=== PATIENT | female | born 1980 | race Caucasian/White ===

== ENCOUNTER 2018-02-03 23:35 | Emergency (ER) | payer MEDICAID, SELFPAY ==
[2018-02-03 23:39] VITALS: BP 128/96; PULSE 98; RESP 14; TEMP 36.5; O2SAT 100
[2018-02-03 23:58] LABS: Bilirubin Negative (Negative); Blood Moderate (Negative); Clarity Clear; Glucose Negative (Negative); Ketones Negative (Negative); Leukocyte Esterase Negative (Negative); Nitrite Negative (Negative); Specific Gravity 1.015 (1.005-1.025); Urobilinogen 0.2 EU/dL (Up TO 0.2)
--- NOTE | 2018-02-04 00:01 | ED.GENADUL_ITS ---
Disposition Clinical Impression: Flank pain, Urolithiasis Disposition: HOME Condition: Good Instructions: Kidney Stones (ED), Flank Pain (ED) Additional Instructions: Please take medications as directed. If you notice any worsening of your symptoms, or any new symptoms such as vomiting, diarrhea, fever, chills, shortness of breath, chest pain, numbness, weakness, or fainting , please return immediately to the emergency department for reevaluation. Please follow up with your primary care provider as soon as possible for reassessment and reevaluation. As always, it was a pleasure participating in your medical care today. Prescriptions: Acetaminophen [Tylenol Extra Strength] 1,000 mg PO Q6H 5 Days #60 tab Ibuprofen [Motrin Ib] 600 mg PO Q6H 5 Days #60 tablet Medical Decision Making - Medical Decision Making This is a pleasant 37-year-old female who presents for evaluation of flank pain that started tonight. She describes it as aching sensation. It is reproducible on percussion, and palpation of the paraspinal areas. She does have some associated urinary pressure sensation. Abdominal exam is benign for any signs of an acute abdomen or a significant abdominal tenderness. The patient has no history of kidney stones. Differential at this time includes urolithiasis versus UTI. We will get a urinalysis to evaluate further imaging is indicated. Signs and symptoms are more clinically concerning for UTI then kidney stone at this time though. Urinalysis is suggestive of a kidney stone, no signs of significant infection. The patient's pain is controlled with Tylenol and Motrin. Initial CT read was negative for any acute process, however we did contact the radiologist and discussed the case with them and reviewed the images, and there is concern for mild right hydroureter, as well as possible kidney stone. I feel this correlates well with the patient's symptomatology. Her vital signs are normal, pain is well controlled, no signs of infection on urinalysis. Feel the patient be safely discharged home with close follow-up. We will get a new primary care provider for her. We discussed red flags which returned the patient understands. I have extensively reviewed the treatment plan and discharge instructions with the patient and their family. I have addressed all patient concerns at this time. The patient and family was made aware of what symptoms to monitor for that would warrant a return to the emergency department. Discussed the plan with the patient and family, they demonstrate verbal understanding and agreement with our assessment and plan at this time. History of Present Illness - General Chief complaint: FlankPain Stated complaint: UNKNOWN Time Seen by Provider: 02/03/18 23:48 - History of Present Illness Initial comments: This is a 37-year-old female with no significant past medical history who presents today for evaluation of bilateral flank pain, slightly worse on the right than the left. Patient's pain started very mildly yesterday, however did get worse tonight. Is been achy in sensation. She has some associated urinary pressure, but denies any frequency, or dysuria. She denies any fevers chills, nausea, vomiting, diarrhea. Patient symptoms are made worse with moving around. She states that she did just recently get back from a long car trip to [place], and the patient was concerned that this may just be musculoskeletal secondary to sitting for so long. Patient denies any abdominal pain with food, recent trauma, rash, headache, numbness tingling or weakness. Patient denies any history of kidney stones, or any recent bladder infections. She has no other complaints at this time. Past surgical history is positive for hysterectomy. Patient does smoke tobacco regularly. - Related Data Acetaminophen [Tylenol Extra Strength] 1,000 mg PO Q6H 5 Days #60 tab 02/04/18 Ibuprofen [Motrin Ib] 600 mg PO Q6H 5 Days #60 tablet 02/04/18 Allergies Allergy/AdvReac Type Severity Reaction Status Date / Time No Known Allergies Allergy Unverified 07/27/17 18:28 Review of Systems Other: 10 point review of systems was performed, pertinent positives and negatives are noted in the history of present illness. Past Medical History - Past Medical History Medical history: asthma endometriosis Surgical history: hysterectomy - Social History Alcohol use: none Drug use: none General Exam - Other Other exam information: 1.Const: Well-nourished, Well-developed, appearing stated age 2.Eyes: PERRL, no conjunctival injection, and symmetrical lids. 3.ENT: Atraumatic external nose and ears. Moist MM. Neck: Symmetric, trachea midline, No thyromegaly. 4.CVS: +S1/S2, No murmurs or gallops. Peripheral pulses 2+ and equal in all extremities. Brisk capillary refill in all extremities. 5.RESP: Unlabored respiratory effort. Clear to auscultation bilaterally. No wheezes rales or rhonchi 6.GI: Soft, Nontender/Nondistended, No hepatosplenomegaly. No guarding or rebound. Mild bilateral flank tenderness on percussion. Slightly worse on the left than the right. Mild reproducible paraspinal tenderness. No midline spinal tenderness. Negative obturator and psoas sign. No pain at McBurney's point. Negative Beltran sign. 7.MSK: Normocephalic/Atraumatic, Extremities w/o deformity or ttp No cyanosis or clubbing, Normal movement of all extremities 8.Skin: Warm, Dry. No rashes or lesions. 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 Sensation grossly intact, no focal neurologic deficits. 10.Psych: (AAO) x3. Appropriate mood and affect Course Vital Signs - 24 hr 02/03/18 23:39 Temperature 36.5 C Pulse 98 H Respiratory 14 Rate Blood Pressure 128/96 Pulse Oximetry 100
[2018-02-04] MEDS: Ibuprofen 800 MG TAB PO (00:11)
[2018-02-04] MEDS: Acetaminophen 500 MG TAB 1000 MG PO (00:12)
[2018-02-04 00:23] LABS: Bacteria Rare HPF (Negative); Casts Negative LPF (Negative); Crystals Negative HPF (Negative); Epithelial Cells Many HPF (Negative); Mucus Negative (Negative); Other Cells Rare Transitional (Negative); RBC 20-50 (0-2); WBC 0-2 HPF (0-5)
[2018-02-04 00:24] LABS: C & S Indicated? No
--- NOTE | 2018-02-04 00:30 | DI.RPTCT_ITS ---
SYMPTOMS/DIAGNOSIS: BILATERAL FLANK PAIN, WORSE ON RIGHT NONCONTRAST CT OF THE ABDOMEN AND PELVIS: There are no prior comparison exams. There is mild bilateral dilatation of both renal pelves. There are phleboliths in the lower pelvis. No definite ureteral calculi are seen. There are no bladder calculi or intrarenal calculi. The lung bases are clear. There is a question of mild fatty infiltration of the liver. There is no biliary dilatation. The gallbladder, pancreas, spleen and adrenals are unremarkable. The patient is status post hysterectomy. There is a lucency in the area of the cervical stump. The findings could represent a nabothian cyst. The cecum and appendix are positioned low in the posterior pelvis. No inflammatory changes or bowel dilatation is seen. There is a mild scoliosis. The bladder is unremarkable. IMPRESSION: Mild dilatation of both renal pelves, right greater than left, without visible obstructing stones. The findings could be secondary to recently passed stones versus anatomic variant.
--- NOTE | 2018-02-04 01:12 | DI.VRAD_ITS ---
EXAM: CT Abdomen and Pelvis Without Intravenous Contrast EXAM DATE/TIME: 02/04/2018 12:09 AM CLINICAL HISTORY: 37 years old, female; Pain; Other: Bilat flank pain; Prior surgery; Surgery date: 6+ months; Surgery type: Hysterectomy TECHNIQUE: Axial computed tomography images of the abdomen and pelvis without intravenous contrast. All CT scans at this facility use at least one of these dose optimization techniques: automated exposure control; mA and/or kV adjustment per patient size (includes targeted exams where dose is matched to clinical indication); or iterative reconstruction. Coronal and sagittal reformatted images were created and reviewed. COMPARISON: US - PELVIS TRANSVAG 2015-03-09 16:18 FINDINGS: Lower thorax: No acute findings. ABDOMEN: Liver: Normal. No mass. Gallbladder and bile ducts: The gallbladder is poorly visualized on subsequent to marked contraction. Pancreas: Normal. No ductal dilation. Spleen: Normal. No splenomegaly. Adrenals: Normal. No mass. Kidneys and ureters: Normal. No hydronephrosis. Stomach and bowel: Normal. No obstruction. No mucosal thickening. Appendix: No evidence of appendicitis. PELVIS: Bladder: Unremarkable as visualized. Reproductive: The uterus is not visualized which is consistent with a given history of hysterectomy. Neither ovary was identified. There is a possible 1.1 x 1.7 cm nabothian cyst on the left lateral cervical stump. ABDOMEN and PELVIS: Intraperitoneal space: Normal. No free air. No significant fluid collection. Bones/joints: The coronal reconstructed images demonstrate mild dextroscoliotic curvature with the apex at L2. Soft tissues: Unremarkable. Vasculature: Normal. No abdominal aortic aneurysm. Lymph nodes: Normal. No enlarged lymph nodes. IMPRESSION: No acute findings are detected. Dictated and Authenticated by: Tommie Hannah MD. Ordering:HEATHER MERLOS MD
[2018-02-04 01:30] VITALS: BP 124/82; PULSE 94; RESP 18; TEMP 36.6; O2SAT 96
--- NOTE | 2018-02-04 10:40 | PDOC.ERCMPRO ---
Care Management Progress Note 02/04-Dr. Graham requested assistance with a PCP f/u in 102 weeks for flank pain. Milagros used to see Radha Mckinnon at [facility]. Referral faxed to [facility] this am.
== END 2018-02-04 01:32 | disposition home or self-care (01) ==
PROVIDERS: Emergency Provider Student in an Organized Health Care Education/Training Program; PCP Nurse Practitioner
DX: R10.31 Right lower quadrant pain (principal); N20.9 Urinary calculus, unspecified
CPT/HCPCS: 99284; 74176; 81003; 81015

== ENCOUNTER → 2018-02-17 15:21 | Outpatient (REF) | payer MEDICAID, SELFPAY ==
[2018-02-17 21:44] LABS: RBC Negative (0-2); WBC 0-2 HPF (0-5)
[2018-02-17 21:45] LABS: Bacteria Few HPF (Negative); C & S Indicated? No; Casts Negative LPF (Negative); Crystals Few Amorphous HPF (Negative); Epithelial Cells Few HPF (Negative); Mucus Negative (Negative)
[2018-02-17 21:58] LABS: Anion Gap 9.1 mmol/L (3-11); BUN 12 mg/dL (7-18); CO2 25.9 mmol/L (21.0-32.0); CREATININE 1.11 mg/dL (0.55-1.02); Calcium 9.2 mg/dL (8.5-10.1); Chloride 108 mmol/L (98-107); Cholesterol 151 mg/dL (50-200); Estimated GFR 55.94 (mL/min/1.73m2); Glucose 84 mg/dL (70-100); HDL Cholesterol 55 mg/dL (40-60); LDL CHOLESTEROL 86 mg/dL (<100); Potassium 4.1 mmol/L (3.5-5.1); Sodium 143 mmol/L (136-145); TSH (W/Ref FT4) 1.48 uIU/mL (0.358-3.74); Triglyceride 182 mg/dL (30-150)
[2018-02-20 11:46] LABS: Source: Kidney
== END ==
LOC: NCHCN 15:21
PROVIDERS: PCP Specialist/Technologist Athletic Trainer; Visit Provider Specialist/Technologist Athletic Trainer
DX: N20.0 Calculus of kidney (principal); R53.83 Other fatigue
CPT/HCPCS: 80048; 80061; 83721; 81015; 82360; 84443

== ENCOUNTER 2018-06-25 09:42 | Emergency (ER) | payer MEDICAID, SELFPAY ==
[2018-06-25 09:44] VITALS: BP 147/86; PULSE 80; RESP 18; TEMP 36.4; O2SAT 98
--- NOTE | 2018-06-25 09:51 | ED.GENADUL_ITS ---
Discharge Plan Disposition Patient Disposition: HOME Condition: Improving Discharge Details Chief Complaint: Orthopedic Clinical Impression: Left ankle sprain Primary Care Provider: Anthony Hannah ED Provider: Ortega Colin Home Meds and New Rx's Prescriptions: Continued acetaminophen [Mapap Extra Strength] 500 MG tablet 1,000 mg PO Q6H 5 Days Qty: 60 RF: 0 Ibuprofen [Motrin Ib] 200 MG Tablet 600 mg PO Q6H 5 Days Qty: 60 RF: 0 Discharge Instructions Instructions: Ankle Sprain (ED) Additional Instructions: Tylenol and/or ibuprofen as needed for pain. Elevate above the level of the heart to reduce pain and swelling. Crutches as needed and then may wean to the postop shoe, subsequently weaned to a flat soled shoe and then return to normal footwear. Return for any acute concerns Medical Decision Making 38-year-old female who is in outpatient surgical waiting, stood up with her foot having pins and needles and subsequently rolled the left ankle. Now with dull, achy, left foot pain and mild swelling. Given ice and referred for x-ray to rule out underlying fracture versus sprain. The patient's x-ray did not reveal underlying fracture. Given postop shoe, compression, crutches. She will be weightbearing as tolerated, rest, ice, elevation at home. Return for any worsening HPI General Mode of arrival: ambulatory . Date/Time Provider Initiated Documentation: 06/25/18 09:44 . Limitations to Documentation: no limitations . Information obtained by: patient . History of Present Illness 38 year old F presents to the emergency department with the chief complaint of Left ankle pain, described as moderate, Quality is described as aching, and is loca lized to the left and lower extremity. Patient reports no radiation. Patient started experiencing this minute(s) and it has been constant. No relieving factors improve symptom(s), Movement worsens symptoms . Patient notes other (My foot fell asleep). Patient did receive the following treatments prior to arrival, none Related Data Home Medications Medication Instructions Recorded Confirmed Ibuprofen [Motrin Ib] 600 mg PO Q6H 5 Days #60 tablet 02/04/18 acetaminophen [Mapap Extra 1,000 mg PO Q6H 5 Days #60 tab 02/04/18 Strength] Previous Rx's Medication Instructions Recorded Ibuprofen [Motrin Ib] 600 mg PO Q6H 5 Days #60 tablet 02/04/18 acetaminophen [Mapap Extra 1,000 mg PO Q6H 5 Days #60 tab 02/04/18 Strength] Allergies Allergy/AdvReac Type Severity Reaction Status Date / Time No Known Allergies Allergy Unverified 07/27/17 18:28 General Stated Complaint: Orthopedic DIANNA: 4 Review of Systems Review of Systems For systems reviewed and otherwise negative [facility] Surgical History Curettage of endometrium (03/17/15) Social History Smoking/Tobacco Use Status: Current every day Exam Narrative Exam Narrative: GEN: awake, alert, oriented 3. Pleasant, well groomed, interactive. HEAD: Normocephalic, atraumatic ENT: Mucous membranes moist, oropharynx unremarkable, External ear exam unremarkable EYES: PERRL, EOMI NECK: Full ROM, no DEYANIRA, no menigismus CHEST/RESP: Nontender, clear to auscultation bilateral, no wheeze/rhonchi/rales CARDIOVASCULAR: RRR, no murmur, rub rod. 2+ Rad pulse bilateral EXT: Full ROM, no edema, no rash. Left lateral proximal dorsal surface of foot with area of ecchymosis and tenderness. 2+ DP. Range of motion intact. Sensation intact throughout. Neuro: Grossly normal neurologic exam, conversant, interactive. Psych: Speech fluent, thoughts congruent, affect normal Course Vital Signs Temperature 36.4 C L 06/25/18 09:44 Pulse 80 06/25/18 09:44 Respiratory Rate 18 06/25/18 09:44 Blood Pressure 147/86 H 06/25/18 09:44 Pulse Oximetry 98 06/25/18 09:44 Temperature 36.4 C L 06/25/18 09:44 Temperature Source Temporal Artery Scan 06/25/18 09:44 Pulse 80 06/25/18 09:44 Respiratory Rate 18 06/25/18 09:44 Respiratory Effort Non-Labored 06/25/18 09:47 Blood Pressure 147/86 H 06/25/18 09:44 Pulse Oximetry 98 06/25/18 09:44 Oxygen Delivery Method Room Air 06/25/18 09:44 Oxygen Flow Rate 0 06/25/18 09:44 Pain Level 2 06/25/18 09:44
--- NOTE | 2018-06-25 10:04 | DI.RAD_ITS ---
SYMPTOM/DIAGNOSIS: LATERAL FOOT PAIN AFTER TWISTING LEFT ANKLE: No fracture or ankle mortise widening is seen. There is some narrowing of the ankle joint. IMPRESSION: No acute abnormality.
[2018-06-25] MEDS: Acetaminophen 500 MG TAB 1000 MG PO (10:37)
[2018-06-25] MEDS: Ibuprofen 800 MG TAB PO (10:37)
== END 2018-06-25 10:40 | disposition home or self-care (01) ==
PROVIDERS: Emergency Provider Emergency Medicine; PCP Specialist/Technologist Athletic Trainer
DX: S93.402A Sprain of unspecified ligament of left ankle, initial encounter (principal); X50.9XXA Other and unspecified overexertion or strenuous movements or postures, initial encounter
CPT/HCPCS: 99283; 73610; E0114

== ENCOUNTER 2018-07-16 10:29 | Outpatient (CLI) | payer MEDICAID, SELFPAY ==
--- NOTE | 2018-07-16 15:30 | DI.RAD_ITS ---
SYMPTOMS/DIAGNOSIS: COUGH, R05 PA AND LATERAL CHEST: The heart is normal in size. The lungs are clear. The mediastinal structures and pleura appear intact. SUMMARY: Normal chest.
== END 2018-07-16 10:49 ==
PROVIDERS: PCP Specialist/Technologist Athletic Trainer; Visit Provider Specialist/Technologist Athletic Trainer
DX: R05 Cough (principal)
CPT/HCPCS: 71046

== ENCOUNTER 2018-08-14 12:35 | Emergency (ER) | payer MEDICAID, SELFPAY ==
[2018-08-14 12:44] VITALS: BP 137/98; PULSE 72; RESP 16; TEMP 36.7; O2SAT 99
--- NOTE | 2018-08-14 12:56 | DI.RAD_ITS ---
SYMPTOMS/DIAGNOSIS: COUGH X 2 MOS CHEST X-RAY, PA AND LATERAL: Comparison is 07/16/18. The heart is normal in size. The lungs are clear. The mediastinal structures and pleura appear intact. IMPRESSION: Normal chest.
--- NOTE | 2018-08-14 12:59 | ED.GENADUL_ITS ---
Discharge Plan Disposition Patient Disposition: HOME Condition: Good Discharge Details Chief Complaint: GenMedical Clinical Impression: Fatigue, Sinusitis Primary Care Provider: Anthony Hannah ED Provider: Brian Graham Home Meds and New Rx's Prescriptions: New fluticasone [Flonase Allergy Relief] 50 mcg/actuation spray,suspension 2 spray SIOMARA DAILY Qty: 9.9 RF: 0 loratadine 10 mg capsule 10 mg PO DAILY Qty: 20 RF: 0 No Action acetaminophen [Mapap Extra Strength] 500 MG tablet 1,000 mg PO Q6H 5 Days Qty: 60 RF: 0 Ibuprofen [Motrin Ib] 200 MG Tablet 600 mg PO Q6H 5 Days Qty: 60 RF: 0 Discharge Instructions Instructions: Sinusitis (ED), Fatigue (ED) Additional Instructions: Please take the medications as directed. If you notice any worsening of your symptoms, or any new symptoms such as vomiting, diarrhea, fever, chills, shortness of breath, chest pain, numbness, weakness, or fainting , please return immediately to the emergency department for reevaluation. Please follow up with your primary care provider as soon as possible for reassessment and reevaluation. As always, it was a pleasure participating in your medical care today. Referrals: Anthony Hannah [Primary Care Provider] - Medical Decision Making This is a pleasant 38-year-old female who presents for evaluation of mild cough and sinus congestion for the last 2 months. She is completed a course of azithromycin and Augmentin last month, with no improvement of her symptoms. She denies any fever, chills, chest pain or significant shortness of breath. She denies any vomiting or diarrhea. She does smoke regularly and does not stop this. Physical exam demonstrates reassuring vital signs, and a benign physical exam with minimal crackles in left lower lung jolly. No evidence of hypoxemia. Patient is requesting further imaging workup, will get a chest x-ray to rule out pneumonia, will follow laboratory workup looking for mono, as well as influenza and thyroid dysfunction secondary to the patient's chronicity of her symptoms, in conjunction with a notable fatigue. The patient is PERC and Wells negative, and her signs and symptoms are clinically is consistent with coronary embolism, or ACS 2:31 pm Patient's chest x-ray has returned, and there is no evidence of acute process or pneumonia per radiology. Laboratory workup has returned and shows no abnormalities whatsoever. TSH, mono, and flu are all benign. No white count bandemia or left shift. Feel the patient signs and symptoms are consistent with sinusitis. We will prescribe loratadine and nasal steroids for improvement drainage of this. I see no evidence of bacterial infectious etiology for her symptoms or complaints at this time requiring an antibiotic. I have extensively reviewed the treatment plan and discharge instructions with the patient. I have addressed all patient concerns at this time. The patient was made aware of what symptoms to monitor for that would warrant a return to the emergency department. Discussed the plan with the patient, they demonstrate verbal understanding and agreement with our assessment and plan at this time. HPI General Date/Time Provider Initiated Documentation: 08/14/18 12:36 . HPI Narrative: This is a 38-year-old female with a past medical history of total hysterectomy, notable tobacco abuse, who presents for feeling ill for the last 2 months. Patient states that she has had a cough and facial congestion for the last 2 months, she has been on azithromycin and then subsequent Augmentin and steroid burst by her PCP. She has an appointment in 3 days with her PCP, however she was concerned that she was not getting better over the last 2 months and came in for further evaluation. She is also worried that her son was epilepsy might get whatever she has and she wants to see what is going on.She denies any chest pain, significant shortness of breath, pleuritic chest pain, nausea, vomiting, diarrhea, neck pain, headache, fever, chills, change in medications, numbness, tingling, or weakness. Denies PE risk factors such as recent long car rides, immobilization, recent surgery, prior history of DVT or PE, family history of PE or DVT, morbid obesity, exogenous estrogen, hemoptysis, history of cancer. Related Data Home Medications Medication Instructions Recorded Confirmed Ibuprofen [Motrin Ib] 600 mg PO Q6H 5 Days #60 tablet 02/04/18 08/14/18 acetaminophen [Mapap Extra 1,000 mg PO Q6H 5 Days #60 tab 02/04/18 08/14/18 Strength] fluticasone [Flonase Allergy 2 spray SIOMARA DAILY #9.9 gm 08/14/18 Relief] loratadine 10 mg PO DAILY #20 cap 08/14/18 Previous Rx's Medication Instructions Recorded Ibuprofen [Motrin Ib] 600 mg PO Q6H 5 Days #60 tablet 02/04/18 acetaminophen [Mapap Extra 1,000 mg PO Q6H 5 Days #60 tab 02/04/18 Strength] fluticasone [Flonase Allergy 2 spray SIOMARA DAILY #9.9 gm 08/14/18 Relief] loratadine 10 mg PO DAILY #20 cap 08/14/18 Allergies Allergy/AdvReac Type Severity Reaction Status Date / Time No Known Allergies Allergy Unverified 08/14/18 12:49 General Stated Complaint: GenMedical DIANNA: 3 Review of Systems Review of Systems All systems reviewed & are unremarkable except as noted in HPI and below PFSH Social History Smoking and Tabacco status: Current every day Exam Narrative Exam Narrative: 1.Const: Well-nourished, Well-developed, appearing stated age 2.Eyes: PERRL, no conjunctival injection, and symmetrical lids. 3.ENT: Atraumatic external nose and ears. Moist MM. Neck: Symmetric, trachea midline, No thyromegaly. 4.CVS: +S1/S2, No murmurs or gallops. Peripheral pulses 2+ and equal in all e xtremities. Brisk capillary refill in all extremities. 5.RESP: Unlabored respiratory effort. Minimal crackles in the left lower lung field. No wheezes or rhonchi 6.GI: Soft, Nontender/Nondistended, No hepatosplenomegaly. No guarding or rebound. 7.MSK: Normocephalic/Atraumatic, Extremities w/o deformity or ttp No cyanosis or clubbing, Normal movement of all extremities 8.Skin: Warm, Dry. No rashes or lesions. 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 Sensation grossly intact, no focal neurologic deficits. 10.Psych: (AAO) x3. Appropriate mood and affect Course Vital Signs Temperature 36.7 C 08/14/18 12:44 Pulse 72 08/14/18 12:44 Respiratory Rate 16 08/14/18 12:44 Blood Pressure 137/98 H 08/14/18 12:44 Pulse Oximetry 99 08/14/18 12:44 Temperature 36.7 C 08/14/18 12:44 Temperature Source Temporal Artery Scan 08/14/18 12:44 Pulse 72 08/14/18 12:44 Respiratory Rate 16 08/14/18 12:44 Respiratory Effort Incrsd Work of Breathing 08/14/18 12:47 Blood Pressure 137/98 H 08/14/18 12:44 Blood Pressure Position Sitting 08/14/18 12:44 Pulse Oximetry 99 08/14/18 12:44 Oxygen Delivery Method Room Air 08/14/18 12:44 Oxygen Flow Rate 0 08/14/18 12:44 Pain Level 0 08/14/18 12:44
[2018-08-14 13:25] LABS: Abs Immature Grans 0.02 k/cumm (0.0-0.09); Absolute Basophil Count 0.04 k/cumm (0.0-0.2); Absolute Eosinophil Count 0.32 k/cumm (0.0-0.7); Absolute Lymphocyte Count 3.16 k/cumm (1.2-3.4); Absolute Monocyte Count 0.71 k/cumm (0.11-0.7); Absolute Neutrophil Count 4.14 k/cumm (1.2-6.7); Basophils % 0.5; Eosinophils % 3.8; HCT 43.4 % (36.0-46.0); HGB 14.8 g/dL (12.0-15.5); Immature Grans % 0.2; Lymphocytes % 37.7; Mean Corp. HGB Concentration 34.1 g/dL (32.0-36.0); Mean Corpuscular Hemoglobin 31.8 pg (27.0-33.0); Mean Corpuscular Volume 93.3 fL (80-95); Mean Platelet Volume 10.3 fL (8.0-11.0); Monocytes % 8.5; Neutrophils % 49.3; Platelet Count 287 x1000/uL (130-400); RBC 4.65 m/cumm (4.00-5.20); White Blood Cell Count 8.39 k/cumm (4.4-10.8)
[2018-08-14 13:30] VITALS: RESP 1
[2018-08-14] MEDS: Albuterol/Ipratropium 3 ML UPD VIAL UPD (13:30)
[2018-08-14 13:34] LABS: Mono Screening Negative (Negative)
[2018-08-14 14:05] LABS: ALT 54 U/L (12-78); AST 30 U/L (15-37); Albumin 3.5 g/dL (3.4-5.0); Alkaline Phosphatase 91 U/L (46-116); Anion Gap 9.5 mmol/L (3-11); BUN 11 mg/dL (7-18); Bilirubin, Total 0.2 mg/dL (0.2-1.0); CO2 28.5 mmol/L (21.0-32.0); CREATININE 0.97 mg/dL (0.55-1.02); Calcium 9.3 mg/dL (8.5-10.1); Chloride 107 mmol/L (98-107); Glucose 80 mg/dL (70-100); Potassium 3.6 mmol/L (3.5-5.1); Sodium 145 mmol/L (136-145); Total Protein 7.2 g/dL (6.4-8.2)
[2018-08-14 14:09] LABS: TSH 1.91 uIU/mL (0.358-3.74)
[2018-08-14 14:37] VITALS: BP 130/82; PULSE 80; RESP 16; TEMP 36.8; O2SAT 98
== END 2018-08-14 14:38 | disposition home or self-care (01) ==
PROVIDERS: Emergency Provider Student in an Organized Health Care Education/Training Program; PCP Specialist/Technologist Athletic Trainer
DX: R53.83 Other fatigue (principal); J01.90 Acute sinusitis, unspecified
CPT/HCPCS: 36415; 80053; 87449; 94640; 99284; 71046; 84443; 85025; 86308; J7620

== ENCOUNTER 2018-09-18 08:21 | Emergency (ER) | payer MEDICAID, SELFPAY ==
[2018-09-18 08:27] VITALS: BP 124/77; PULSE 77; RESP 18; TEMP 36.4; O2SAT 100
--- NOTE | 2018-09-18 08:59 | DI.RAD_ITS ---
SYMPTOMS/DIAGNOSIS: FALL, PAIN, TENDER TO PALPATION MID TO DISTAL HUMERUS, LT KNEE LATERAL AND AC LEFT CLAVICLE: There is no evidence of a fracture or AC separation. LEFT HUMERUS: There is no evidence of a fracture or dislocation. LEFT KNEE: There is no evidence of a fracture or dislocation.
--- NOTE | 2018-09-18 09:02 | W.ED.GENAD ---
Discharge Plan Disposition Patient Disposition: HOME Discharge Details Chief Complaint: Orthopedic Clinical Impression: Fall, Injury of left upper arm, Acromioclavicular sprain, Contusion of knee, left Primary Care Provider: Anthony Hannah ED Provider: Phillip Gallardo Home Meds and New Rx's Prescriptions: No Action acetaminophen [Mapap Extra Strength] 500 MG tablet 1,000 mg PO Q6H 5 Days Qty: 60 RF: 0 Ibuprofen [Motrin Ib] 200 MG Tablet 600 mg PO Q6H 5 Days Qty: 60 RF: 0 paroxetine HCl [Paxil] 40 mg Tablet 40 mg PO DAILY RF: 0 Discharge Instructions Instructions: Acromioclavicular Separation (ED), Contusion in Adults (ED) Additional Instructions: Please take ibuprofen over the counter - dose according to label. Please take Tylenol [id number] dose according to label. Please contact your primary care physician to arrange follow-up. Return to the ER for any worsening or new concerning symptoms. Referrals: Donnell Falcon MD [ [facility] STAFF PHYSICIAN] - Anthony Hannah [Primary Care Provider] - Discharge Data Discharge Date/Time-TO BE ENTERED AT DEPARTURE: 09/18/18 11:28 Medical Decision Making 9:10 --38-year-old female here after slip and fall with injury to her left upper arm and left knee. Neurovascular intact distal left upper extremity left lower extremity. Exam concerning for AC separation and likely sprain/strain of her upper arm bicep complex. Consider clavicle fracture and humerus fracture. Knee tender laterally. Suspect sprain. Consider fracture. Patient notes that her knee locks up intermittently. This is a chronic problem. She plans to seek orthopedic evaluation. She knows Dr. Jha and would prefer to see him. 11:15 --left x-ray of clavicle, left humerus and left knee interpreted by radiology as negative. Suspect AC sprain and contusion of left knee. Usual and customary discharge instructions were provided. HPI General Mode of arrival: ambulatory. Date/Time Provider Initiated Documentation: 09/18/18 08:34. Limitations to Documentation: no limitations. Information obtained by: patient. HPI Narrative: 38yo female presents with chief complaint of left arm pain. Patient notes that her left knee locked up and gave out and she fell to the ground. She landed on her left side. She injured her left arm during the fall. This occurred about 30 minutes prior to arrival and she has had persistent pain in her arm since the fall. Pain is localized to her upper arm and clavicle. Pain is moderate and worse with movement of her arm. She has no associated numbness or tingling. She did not hit her head or lose consciousness. No neck pain. No back pain. No chest pain or abdominal pain. She does note that her left knee is sore and painful to walk on. She impacted her lateral knee joint a fall but it seems like her arm took most of the impact. Related Data Home Medications Medication Instructions Recorded Confirmed Ibuprofen [Motrin Ib] 600 mg PO Q6H 5 Days #60 tablet 02/04/18 09/18/18 acetaminophen [Mapap Extra 1,000 mg PO Q6H 5 Days #60 tab 02/04/18 09/18/18 Strength] paroxetine HCl [Paxil] 40 mg PO DAILY 09/18/18 09/18/18 Previous Rx's Medication Instructions Recorded Ibuprofen [Motrin Ib] 600 mg PO Q6H 5 Days #60 tablet 02/04/18 acetaminophen [Mapap Extra 1,000 mg PO Q6H 5 Days #60 tab 02/04/18 Strength] Allergies Allergy/AdvReac Type Severity Reaction Status Date / Time adhesive Allergy Skin Rash Unverified 09/18/18 08:37 bupropion AdvReac skin Unverified 09/18/18 08:37 crawling General Stated Complaint: Orthopedic DIANNA: 4 Review of Systems Cardiovascular Denies dyspnea Respiratory Denies dyspnea Gastrointestinal Denies abdominal pain Musculoskeletal Reports as per HPI Neurologic Reports as per HPI [facility] Surgical History Curettage of endometrium (03/17/15) Social History Smoking/Tobacco Use Status: Current every day Tobacco Type: cigarettes Drug use: Occasionally Substance use type: marijuana Do you feel safe at home: Yes Do you feel safe in your relationship?: Yes Exam Const General: cooperative and no acute distress HENMT Head: normocephalic and atraumatic Mouth: moist mucous membranes Neck Neck: trachea midline, supple and nontender Resp Auscultation: clear to auscultation bilaterally, no rales, no rhonchi and no wheezes Cardio Rate: regular rate and not tachycardic Rhythm: regular rhythm Pulses: radial pulses present on the left 2+ GI Palpation: soft, not firm, no guarding, no masses, not rigid and nontender Back/Spine/Pelvis Back: No back tenderness Cervical Spine: cervical ROM normal Thoracic/Lumbar Spine: thoracic and lumbar spine normal to inspection Skin General skin exam: no rashes or lesions noted Neuro General: alert, awake and tone normal Cognition: normal cognition Speech: speech normal Motor: other (distal LUE and LLE motor intact) Sensory Exam: no sensory deficits noted (distal LUE and LLE) Extrem Left upper extremity: shoulder/upper arm (ttp AC joint and left mid to distal upper arm medially) Details: axillary nerve sensory function normal and abnormal ROM (able to range shoulder but with pain in AC) and elbow/forearm Details: abnormal ROM (patient notes limited flexion and extension of elbow 2/2 pain in upper arm); no tenderness and no swelling Psych Appearance: grossly normal Course Vital Signs Temperature 36.4 C L 09/18/18 08:27 Pulse 77 09/18/18 08:27 Respiratory Rate 18 09/18/18 08:27 Blood Pressure 124/77 09/18/18 08:27 Pulse Oximetry 100 09/18/18 08:27 Temperature 36.4 C L 09/18/18 08:27 Temperature Source Temporal Artery Scan 09/18/18 08:27 Pulse 77 09/18/18 08:27 Respiratory Rate 18 09/18/18 08:27 Respiratory Effort Non-Labored 09/18/18 08:34 Blood Pressure 124/77 09/18/18 08:27 Blood Pressure Position Sitting 09/18/18 08:27 Pulse Oximetry 100 09/18/18 08:27 Oxygen Delivery Method Room Air 09/18/18 08:27 Oxygen Flow Rate 0 09/18/18 08:27 Pain Level 7 09/18/18 08:39
--- NOTE | 2018-09-18 09:11 | ED.GENADUL_ITS ---
Discharge Plan Disposition Patient Disposition: HOME Discharge Details Chief Complaint: Orthopedic Clinical Impression: Fall, Injury of left upper arm, Acromioclavicular sprain, Contusion of knee, left Primary Care Provider: Anthony Hannah ED Provider: Phillip Gallardo Home Meds and New Rx's Prescriptions: No Action acetaminophen [Mapap Extra Strength] 500 MG tablet 1,000 mg PO Q6H 5 Days Qty: 60 RF: 0 Ibuprofen [Motrin Ib] 200 MG Tablet 600 mg PO Q6H 5 Days Qty: 60 RF: 0 paroxetine HCl [Paxil] 40 mg Tablet 40 mg PO DAILY RF: 0 Discharge Instructions Instructions: Acromioclavicular Separation (ED), Contusion in Adults (ED) Additional Instructions: Please take ibuprofen over the counter - dose according to label. Please take Tylenol [id number] dose according to label. Please contact your primary care physician to arrange follow-up. Return to the ER for any worsening or new concerning symptoms. Referrals: Donnell Falcon MD [ [facility] STAFF PHYSICIAN] - Anthony Hannah [Primary Care Provider] - Discharge Data Discharge Date/Time-TO BE ENTERED AT DEPARTURE: 09/18/18 11:28 Medical Decision Making 9:10 --38-year-old female here after slip and fall with injury to her left upper arm and left knee. Neurovascular intact distal left upper extremity left lower extremity. Exam concerning for AC separation and likely sprain/strain of her upper arm bicep complex. Consider clavicle fracture and humerus fracture. Knee tender laterally. Suspect sprain. Consider fracture. Patient notes that her knee locks up intermittently. This is a chronic problem. She plans to seek orthopedic evaluation. She knows Dr. Jha and would prefer to see him. 11:15 --left x-ray of clavicle, left humerus and left knee interpreted by radiology as negative. Suspect AC sprain and contusion of left knee. Usual and customary discharge instructions were provided. HPI General Mode of arrival: ambulatory . Date/Time Provider Initiated Documentation: 09/18/18 08:34 . Limitations to Documentation: no limitations . Information obtained by: patient . HPI Narrative: 38yo female presents with chief complaint of left arm pain. Patient notes that her left knee locked up and gave out and she fell to the ground. She landed on her left side. She injured her left arm during the fall. This occurred about 30 minutes prior to arrival and she has had persistent pain in her arm since the fall. Pain is localized to her upper arm and clavicle. Pain is moderate and worse with movement of her arm. She has no associated numbness or tingling. She did not hit her head or lose consciousness. No neck pain. No back pain. No chest pain or abdominal pain. She does note that her left knee is sore and painful to walk on. She impacted her lateral knee joint a fall but it seems like her arm took most of the impact. Related Data Home Medications Medication Instructions Recorded Confirmed Ibuprofen [Motrin Ib] 600 mg PO Q6H 5 Days #60 tablet 02/04/18 09/18/18 acetaminophen [Mapap Extra 1,000 mg PO Q6H 5 Days #60 tab 02/04/18 09/18/18 Strength] paroxetine HCl [Paxil] 40 mg PO DAILY 09/18/18 09/18/18 Previous Rx's Medication Instructions Recorded Ibuprofen [Motrin Ib] 600 mg PO Q6H 5 Days #60 tablet 02/04/18 acetaminophen [Mapap Extra 1,000 mg PO Q6H 5 Days #60 tab 02/04/18 Strength] Allergies Allergy/AdvReac Type Severity Reaction Status Date / Time adhesive Allergy Skin Rash Unverified 09/18/18 08:37 bupropion AdvReac skin Unverified 09/18/18 08:37 crawling General Stated Complaint: Orthopedic DIANNA: 4 Review of Systems Cardiovascular Denies dyspnea Respiratory Denies dyspnea Gastrointestinal Denies abdominal pain Musculoskeletal Reports as per HPI Neurologic Reports as per HPI [facility] Surgical History Curettage of endometrium (03/17/15) Social History Smoking/Tobacco Use Status: Current every day Tobacco Type: cigarettes Drug use: Occasionally Substance use type: marijuana Do you feel safe at home: Yes Do you feel safe in your relationship?: Yes Exam Const General: cooperative and no acute distress HENMT Head: normocephalic and atraumatic Mouth: moist mucous membranes Neck Neck: trachea midline, supple and nontender Resp Auscultation: clear to auscultation bilaterally, no rales, no rhonchi and no wheezes Cardio Rate: regular rate and not tachycardic Rhythm: regular rhythm Pulses: radial pulses present on the left 2+ GI Palpation: soft, not firm, no guarding, no masses, not rigid and nontender Back/Spine/Pelvis Back: No back tenderness Cervical Spine: cervical ROM normal Thoracic/Lumbar Spine: thoracic and lumbar spine normal to inspection Skin General skin exam: no rashes or lesions noted Neuro General: alert, awake and tone normal Cognition: normal cognition Speech: speech normal Motor: other (distal LUE and LLE motor intact) Sensory Exam: no sensory deficits noted (distal LUE and LLE) Extrem Left upper extremity: shoulder/upper arm (ttp AC joint and left mid to distal upper arm medially) Details: axillary nerve sensory function normal and abnormal ROM (able to range shoulder but with pain in AC) and elbow/forearm Details: abnormal ROM (patient notes limited flexion and extension of elbow 2/2 pain in upper arm); no tenderness and no swelling Psych Appearance: grossly normal Course Vital Signs Temperature 36.4 C L 09/18/18 08:27 Pulse 77 09/18/18 08:27 Respiratory Rate 18 09/18/18 08:27 Blood Pressure 124/77 09/18/18 08:27 Pulse Oximetry 100 09/18/18 08:27 Temperature 36.4 C L 09/18/18 08:27 Temperature Source Temporal Artery Scan 09/18/18 08:27 Pulse 77 09/18/18 08:27 Respiratory Rate 18 09/18/18 08:27 Respiratory Effort Non-Labored 09/18/18 08:34 Blood Pressure 124/77 09/18/18 08:27 Blood Pressure Position Sitting 09/18/18 08:27 Pulse Oximetry 100 09/18/18 08:27 Oxygen Delivery Method Room Air 09/18/18 08:27 Oxygen Flow Rate 0 09/18/18 08:27 Pain Level 7 09/18/18 08:39
[2018-09-18] MEDS: Acetaminophen 325 MG TAB 650 MG PO (11:23)
== END 2018-09-18 11:28 | disposition home or self-care (01) ==
PROVIDERS: Emergency Provider Student in an Organized Health Care Education/Training Program; PCP Specialist/Technologist Athletic Trainer
DX: S43.52XA Sprain of left acromioclavicular joint, initial encounter (principal); S80.02XA Contusion of left knee, initial encounter; M79.602 Pain in left arm; W01.0XXA Fall on same level from slipping, tripping and stumbling without subsequent striking against object, initial encounter
CPT/HCPCS: 73562; 99284; 73000; 73060; L3650

== ENCOUNTER 2018-10-03 00:47 | Outpatient (CLI) | payer MEDICAID, SELFPAY ==
--- NOTE | 2018-10-03 10:44 | DI.MRI_ITS ---
SYMPTOM/DIAGNOSIS: LT KNEE PAIN, S/P FALL, ? PATELLOFEMORAL SYNDROME LEFT KNEE MRI: MRI examination of the knee was performed according to the usual protocol. Note is made of areas of increased signal in the distal left femur laterally and anteriorly. There is corresponding area of abnormal signal in the medial aspect of the patella and there is abnormal signal at the medial patellar retinacular attachment. The findings are suggestive of prior patellar dislocation. The possibility of medial patellar fracture inferiorly is raised. No other significant bony signal abnormality is seen. Extensor mechanism otherwise appears intact. No meniscal or cruciate ligament injury is seen. No significant collateral ligament injury is seen. CONCLUSION: Findings suggesting lateral patellar dislocation and medial retinacular injury with question impaction fracture inferomedial patella.
== END 2018-10-03 01:07 ==
PROVIDERS: PCP Specialist/Technologist Athletic Trainer; Visit Provider Orthopaedic Surgery
DX: M25.562 Pain in left knee (principal); S83.092A Other subluxation of left patella, initial encounter
CPT/HCPCS: 73721

== ENCOUNTER 2019-06-29 13:08 | Outpatient (REF) | payer MEDICAID, SELFPAY ==
[2019-06-29 21:58] LABS: Anion Gap 15.8 mmol/L (3-11); BUN 7 mg/dL (7-18); CO2 21.2 mmol/L (21.0-32.0); CREATININE 1.01 mg/dL (0.55-1.02); Calcium 9.2 mg/dL (8.5-10.1); Chloride 106 mmol/L (98-107); Glucose 93 mg/dL (74-106); Potassium 3.6 mmol/L (3.5-5.1); Sodium 143 mmol/L (136-145)
== END 2019-06-29 13:28 ==
LOC: NCHCN 13:08
PROVIDERS: PCP Specialist/Technologist Athletic Trainer; Visit Provider Nurse Practitioner Family
DX: R60.9 Edema, unspecified (principal); F32.9 Major depressive disorder, single episode, unspecified
CPT/HCPCS: 80048

== ENCOUNTER 2019-07-02 02:22 | Outpatient (CLI) | payer MEDICAID, SELFPAY ==
--- NOTE | 2019-07-02 12:15 | DI.RAD_ITS ---
EXAM: XR SCAPULA LT AND XR SHOULDER LT: CLINICAL HISTORY: SOFT TISSUE SWELLING, R60.9, LT SHOULDER PAIN, M25.512 TECHNIQUE: Five views of the shoulder and two additional views of the scapula were obtained. COMPARISON: XR SHOULDER LT COMPLETE 2+V from 07/02/2019 FINDINGS: The glenohumeral and acromioclavicular joints appear intact. No bony abnormality seen. Note is made o f a faint calcific or ossific density projected in the soft tissues lateral to the inferior tip of th e scapula, this is of uncertain significance. Please correlate with the patient's symptomatology. If there is a clinical suspicion of a mass, additional evaluation with MR or CT of this region should be considered.
== END 2019-07-02 02:42 ==
PROVIDERS: PCP Nurse Practitioner Family; Visit Provider Nurse Practitioner Family
DX: M25.512 Pain in left shoulder (principal); M79.89 Other specified soft tissue disorders; R22.32 Localized swelling, mass and lump, left upper limb
CPT/HCPCS: 73010; 73030

== ENCOUNTER 2019-07-18 22:07 | Emergency (ER) | payer MEDICAID, SELFPAY ==
[2019-07-18 22:13] VITALS: BP 138/97; PULSE 80; RESP 16; TEMP 36.6; O2SAT 98
--- NOTE | 2019-07-18 22:27 | ED.GENADUL_ITS ---
Discharge Plan Disposition Patient Disposition: HOME Condition: Stable Discharge Details Chief Complaint: Headache Clinical Impression: Headache Primary Care Provider: Carol Randle ED Provider: Don Paez Home Meds and New Rx's Prescriptions: New diazepam [Valium] 5 mg tablet 5 mg PO TID PRN (Reason: muscle spasm) Qty: 14 RF: 0 Continued paroxetine HCl [Paxil] 20 mg tablet 20 mg PO DAILY RF: 0 cholecalciferol (vitamin D3) 1,000 unit/drop drops 1,000 unit PO .daily RF: 0 tramadol 50 mg Tablet 50 mg PO HS RF: 0 acetaminophen [Mapap Extra Strength] 500 MG tablet 1,000 mg PO Q6H 5 Days Qty: 60 RF: 0 Ibuprofen [Motrin Ib] 200 MG tablet 600 mg PO Q6H 5 Days Qty: 60 RF: 0 Discharge Instructions Instructions: General Headache (ED) Additional Instructions: follow up with your primary care provider within 1-2 weeks. if you have severe worsening pain, fevers or feel more ill return to the emergency department do not drink alcohol or drive if you take the valium Medical Decision Making 39 yo female with hx of migraines and states has a mass of left shoulder that causes stress of the muscles around it and the neck for quite some time comes in with headaches that feels similar to prior headaches. She denies fevers, vomit, falls, trauma, vision changes. She has a steady gait, no meningismus, no focal motor or sensation deficits and no cranial nerve deficits. She likely is haveing tension headache vs migraine vs muscle strain/spasm. No findings on history or physical exam to suggest bufferer infection, cavernous sinus thrombosis or cerebral venous thrombosis. She has not had imaging recently and given her symptoms will image to eval for possible aneurysm vs mass imaging and labs unremarkable, still reasuing exaqm and pain has improved. Will d/c on muscle relaxers, advised f/u with pcp and return precautions given Differential Diagnosis Differential Diagnosis: migraine, muscle spasm, aneurysm Medical Records Medical records reviewed: Yes I reviewed the patient's medical records. Imaging Data Radiologic Study: Attestation: I personally reviewed and interpreted this imaging study as follows: Imaging: CT Scan Radiologist's impression: no acute findings Lab Data Lab results reviewed: Yes I reviewed the patient's lab results. HPI General Mode of arrival: ambulatory . Date/Time Provider Initiated Documentation: 07/18/19 22:08 . Limitations to Documentation: no limitations . Information obtained by: patient . History of Present Illness 39 year old F presents to the emergency department with the chief complaint of headache, described as moderate, Quality is described as aching, Patient reports no radiation. Patient started experiencing this day(s) (1) and it has been constant. No relieving factors improve symptom(s), No exacerbating factors reported . Patient did receive the following treatments prior to arrival, none Related Data Home Medications Medication Instructions Recorded Confirmed Ibuprofen [Motrin Ib] 600 mg PO Q6H 5 Days #60 tab 02/04/18 07/18/19 acetaminophen [Mapap Extra 1,000 mg PO Q6H 5 Days #60 tab 02/04/18 07/18/19 Strength] cholecalciferol (vitamin D3) 1,000 1,000 unit PO .daily ml 07/01/19 07/18/19 unit/drop oral drops paroxetine HCl 20 mg tablet 20 mg PO DAILY 07/01/19 07/18/19 diazepam [Valium] 5 mg PO TID PRN #14 tab 07/18/19 tramadol 50 mg PO HS 07/18/19 07/18/19 Previous Rx's Medication Instructions Recorded Ibuprofen [Motrin Ib] 600 mg PO Q6H 5 Days #60 tab 02/04/18 acetaminophen [Mapap Extra 1,000 mg PO Q6H 5 Days #60 tab 02/04/18 Strength] diazepam [Valium] 5 mg PO TID PRN #14 tab 07/18/19 Allergies Allergy/AdvReac Type Severity Reaction Status Date / Time adhesive Allergy Skin Rash Unverified 07/18/19 22:17 bupropion AdvReac skin Unverified 07/18/19 22:17 crawling General Stated Complaint: Headache DIANNA: 3 Review of Systems All systems reviewed & are unremarkable except as noted in HPI and below Constitutional Constitutional: Denies chills, Denies fever(s) and Denies weakness Cardiovascular Cardiovascular: Denies chest pain and Denies dyspnea Respiratory Respiratory: Denies cough and Denies dyspnea Gastrointestinal Gastrointestinal: Denies abdominal pain, Denies nausea and Denies vomiting Musculoskeletal Musculoskeletal: Denies joint swelling Neurologic Neurologic: Denies weakness Psychiatric Psychiatric: Denies depression [facility] Social History Smoking/Tobacco Use Status: Current every day Tobacco Type: cigarettes Drug use: Occasionally Substance use type: marijuana Do you feel safe at home: Yes Do you feel safe in your relationship?: Yes Exam Const General: no acute distress Orientation: alert HENMT Head: normal to inspection Ears: external ears normal General nose exam: external nose normal Mouth: moist mucous membranes Eyes General: appearance normal, both eyes and all related structures Neck Neck: normal visual inspection Resp Effort & Inspection: normal respiratory effort and able to speak in complete sentences Cardio Rate: regular rate Skin General skin exam: no rashes or lesions noted Neuro General: alert and oriented x3 Extrem General: normal to inspection Psych Mental Status: mental status grossly normal Course Vital Signs Vital signs: Vital Signs Temperature 36.6 C 07/18/19 22:13 Pulse 80 07/18/19 22:13 Respiratory Rate 16 07/18/19 22:13 Blood Pressure 138/97 H 07/18/19 22:13 Pulse Oximetry 98 07/18/19 22:13 Temperature 36.6 C 07/18/19 22:13 Temperature Source Temporal Artery Scan 07/18/19 22:13 Pulse 80 07/18/19 22:13 Respiratory Rate 16 07/18/19 22:13 Blood Pressure 138/97 H 07/18/19 22:13 Blood Pressure Position Supine 07/18/19 22:13 Pulse Oximetry 98 07/18/19 22:13 Oxygen Delivery Method Room Air 07/18/19 22:13 Oxygen Flow Rate 0 07/18/19 22:13
[2019-07-18] MEDS: diazePAM 5 MG TAB PO (22:28)
[2019-07-18] MEDS: Dexamethasone 10 MG/ML VIAL IVP (22:37)
--- NOTE | 2019-07-18 22:45 | DI.CT_ITS ---
EXAM: CT BRAIN CTA CLINICAL HISTORY: headaches TECHNIQUE: Pre IV contrast and post IV contrast during the arterial phase. Axial CT angiography was performed with multi-slice acquisition and multi-planar and/or 3D reconstruc tions. COMPARISON: ABD PELVIS WO CONTRAST from 02/04/2018 FINDINGS: Noncontrast head CT: No intracranial hemorrhage, mass or infarct is seen. There is no evidence of s kull fracture or sinus opacification. CT angiography of the brain: There is no evidence of vascular occlusion, dissection or gross evidenc e of an aneurysm. No AV malformation or other abnormal enhancing lesion is seen. The venous structu res are unremarkable as visualized. IMPRESSION: Negative head CT. Negative CT angiography of the brain.
[2019-07-18 22:48] LABS: Abs Immature Grans 0.01 k/cumm (0.0-0.09); Absolute Basophil Count 0.07 k/cumm (0.0-0.2); Absolute Eosinophil Count 0.36 k/cumm (0.0-0.7); Absolute Lymphocyte Count 5.03 k/cumm (1.2-3.4); Absolute Monocyte Count 0.66 k/cumm (0.11-0.7); Basophils % 0.8; HCT 42.4 % (36.0-46.0); HGB 14.4 g/dL (12.0-15.5); Immature Grans % 0.1 %; Lymphocytes % 56.3; Mean Corpuscular Hemoglobin 31.4 pg (27.0-33.0); Mean Corpuscular Volume 92.4 fL (80-95); Mean Platelet Volume 10.2 fL (8.0-11.0); Monocytes % 7.4; Neutrophils % 31.4; Platelet Count 297 x1000/uL (130-400); RBC 4.59 m/cumm (4.00-5.20); White Blood Cell Count 8.93 k/cumm (4.4-10.8)
[2019-07-18 23:00] LABS: ALT 27 U/L (14-59); AST 15 U/L (15-37); Albumin 3.5 g/dL (3.4-5.0); Alkaline Phosphatase 82 U/L (46-116); BUN 13 mg/dL (7-18); Bilirubin, Total 0.2 mg/dL (0.2-1.0); CREATININE 0.88 mg/dL (0.55-1.02); Calcium 8.6 mg/dL (8.5-10.1); Chloride 107 mmol/L (98-107); Glucose 95 mg/dL (74-106); Magnesium 1.9 mg/dL (1.8-2.4); Potassium 3.4 mmol/L (3.5-5.1); Sodium 142 mmol/L (136-145); Total Protein 6.8 g/dL (6.4-8.2)
[2019-07-18] MEDS: Omnipaque 350 MG/ML 100 ML BTL IJ (23:10)
--- NOTE | 2019-07-18 23:18 | DI.VRAD_ITS ---
PROCEDURE INFORMATION: Exam: CT Angiography Head With Contrast Exam date and time: 07/18/2019 10:20 PM Age: 39 years old Clinical indication: Pain; Patient HX: Headaches TECHNIQUE: Imaging protocol: Computed tomography angiography of the head with intravenous contrast. 3D rendering: MIP and/or 3D reconstructed images were created by the technologist. COMPARISON: No relevant prior studies available. FINDINGS: Right internal carotid artery: The visualized distal right ICA cervical segment is unremarkable. The right ICA petrous segment is unremarkable. Right ICA cavernous segment is unremarkable. The right ICA supraclinoid segment is unremarkable. Right anterior cerebral artery: Mildly hypoplastic right A1 segment. No occlusion or significant stenosis. No aneurysm. The anterior communicating artery is unremarkable. Right middle cerebral artery: Unremarkable. No occlusion or significant stenosis. No aneurysm. Right posterior cerebral artery: Unremarkable. No occlusion or significant stenosis. No aneurysm. Right vertebral artery: Unremarkable. No occlusion or significant stenosis. No aneurysm. Left internal carotid artery: The visualized distal left ICA cervical segment is unremarkable. The left ICA petrous segment is unremarkable. Left ICA cavernous segment is unremarkable. The left ICA supraclinoid segment is unremarkable. Left anterior cerebral artery: Unremarkable. No occlusion or significant stenosis. No aneurysm. Left middle cerebral artery: Unremarkable. No occlusion or significant stenosis. No aneurysm. Left posterior cerebral artery: Unremarkable. No occlusion or significant stenosis. No aneurysm. Left vertebral artery: Unremarkable. No occlusion or significant stenosis. No aneurysm. Basilar artery: Unremarkable. No occlusion or significant stenosis. No aneurysm. Dural sinuses/cerebral veins: The dural venous sinuses and major cortical veins enhance appropriately without evidence of thrombosis. Other vasculature: The visualized major intracranial arterial segments demonstrate no gross abnormality by noncontrast CT. No asymmetric vascular hyperdensities suggestive of thrombosis are identified. HEAD: Brain: No extra-axial fluid collections. No evidence of acute intracranial hemorrhage. Tadeo-white differentiation is well maintained. No evidence of acute or subacute intracranial ischemia/infarct. No intracranial mass lesions. No enhancing brain lesions or vascular malformations are identified. Midline shift: No midline shift or herniation. Ventricles: Ventricles normal. Sella: The sella is grossly normal. Bones/joints: The calvarium and visualized facial bones are intact. Sinuses: Visualized paranasal sinuses are clear. Mastoid air cells: Visualized mastoid air cells are clear. Orbits: Orbital contents demonstrate no evidence of acute abnormality. Soft tissues: The scalp and visualized soft tissues demonstrate no acute abnormality. Other findings: The IACs are grossly normal. IMPRESSION: 1. No evidence of large vessel occlusion. No evidence of arterial dissection or aneurysm/pseudoaneurysm. 2. No acute intracranial process is identified. 3. Normal CT angiogram of the head. Dictated and Authenticated by: David Ortiz MD. Ordering:LATASHA Ochoa MD
[2019-07-18 23:29] LABS: Diff Comment Agrees w/ Instrument; PTT Activated 27.4 sec (21.0-31.4); Prothrombin Time 10.1 sec (9.3-11.0); RBC Morphology Normal
[2019-07-18 23:36] VITALS: BP 119/82; PULSE 61; RESP 20; TEMP 36.8; O2SAT 96
== END 2019-07-18 23:45 | disposition home or self-care (01) ==
PROVIDERS: Emergency Provider Emergency Medicine; PCP Nurse Practitioner Family
DX: R51 Headache (principal); R22.32 Localized swelling, mass and lump, left upper limb
CPT/HCPCS: 70496; 80053; 96374; 99285; 83735; 85025; 85610; 85730; 99284; J1100; J3490

== ENCOUNTER 2019-07-23 01:25 | Outpatient (CLI) | payer MEDICAID, SELFPAY ==
[2019-07-23] MEDS: Omnipaque 350 MG/ML 100 ML BTL IJ (14:18)
[2019-07-23] MEDS: Normal Saline - Diluent 50 ML VIAL IV (14:19)
--- NOTE | 2019-07-23 14:25 | DI.CT_ITS ---
EXAM: CT UPPER EXTREMITY LT W CLINICAL HISTORY: SOFT TISSUE SWELLING, R60.9, ? MASS LEFT SHOULDER AREA TECHNIQUE: CT examination of the left shoulder was performed with intravenous infusion of 100 cc of Omnipaque 350. Patient reportedly has a palpable mass of the posterolateral aspect of the shoulder. T his is marked with a BB marker. COMPARISON: No exams were available for comparison FINDINGS: There is contour abnormality and prominence of subcutaneous fat beneath the BB marker suggesting the presence of a lipoma. No enhancing lesion identified. No underlying bony abnormality. No axillary or supraclavicular adenopathy. Visualized left lung and mediastinal vascular structures appear intac t. IMPRESSION: Findings suggesting lipoma of the left shoulder posterolaterally. No solid mass lesion or enhancing l esion seen.
== END 2019-07-23 01:45 ==
PROVIDERS: PCP Nurse Practitioner Family; Visit Provider Nurse Practitioner Family
DX: R22.32 Localized swelling, mass and lump, left upper limb (principal); D17.22 Benign lipomatous neoplasm of skin and subcutaneous tissue of left arm
CPT/HCPCS: 73201; J3490

== ENCOUNTER 2019-07-29 02:03 | Outpatient (CLI) | payer MEDICAID, SELFPAY ==
--- NOTE | 2019-07-29 09:45 | DI.MRI_ITS ---
EXAM: MR UPPER JOINT LT WO CLINICAL HISTORY: Acute traumatic severe left shoulder pain. D17.1 BENIGN LIPOMATOUS, M75.52. TECHNIQUE: Multiplanar multisequence MRI was performed. COMPARISON: No exams were available for comparison FINDINGS: Tendons: Tendinosis of the supraspinatus and subscapularis tendons. The infraspinatus and teres eze r tendons are intact. Muscles: There is normal signal and size of the rotator cuff muscles. No significant fatty atrophy i s present. Biceps tendon: Normal signal and size. Normal location. Labrum: Unremarkable on this noncontrast examination. Soft tissues: There is a homogeneously fat signal mass posteriorly. It does exert a mass effect on t he adjacent deltoid, infraspinatus and deltoid muscles. It measures 6.1 TR x 4.6 AP by 6.7 cm. It i s most suggestive of a lipoma. There is no infiltration of the surrounding soft tissues or muscles. No solid component is identified. There is a small amount of fluid in the subacromial subdeltoid bu rsa suggesting bursitis. Coracoclavicular ligament: Unremarkable. Bones: Mild degenerative changes are seen at the acromioclavicular joint and in the humeral head. Glenohumeral joint: The articular cartilage is unremarkable. No significant joint effusion is presen t. IMPRESSION: 6.1 x 4.6 x 6.7 cm fat density mass along the posterior shoulder most suggestive of a lipoma. Small amount of fluid in the subacromial subdeltoid bursa suggesting bursitis.
== END 2019-07-29 02:23 ==
PROVIDERS: PCP Nurse Practitioner Family; Visit Provider Student in an Organized Health Care Education/Training Program
DX: M25.512 Pain in left shoulder (principal); M75.82 Other shoulder lesions, left shoulder; M75.52 Bursitis of left shoulder; M19.012 Primary osteoarthritis, left shoulder; D17.22 Benign lipomatous neoplasm of skin and subcutaneous tissue of left arm
CPT/HCPCS: 73221

== ENCOUNTER 2019-08-19 07:11 | Day surgery (SDC) | payer MEDICAID, SELFPAY ==
[2019-08-19 07:20] VITALS: BP 135/97; PULSE 85; RESP 16; TEMP 36.2; O2SAT 97
[2019-08-19] MEDS: Lactated Ringers 1,000 ML 80 ML IV (07:50)
--- NOTE | 2019-08-19 09:16 | PDOC.DSDIS_ITS ---
Discharge Plan Disposition Patient Disposition: HOME Condition: Good Discharge Details Reason For Visit: lipoma Attending Provider: Annika Gunderson Primary Care Provider: Carol Randle Home Meds and New Rx's Prescriptions: New acetaminophen [Tylenol] 325 mg tablet 650 mg PO Q6H PRN (Reason: pain) Qty: 30 RF: 0 Continued cyclobenzaprine 10 mg tablet 10 mg PO TID RF: 0 naproxen 500 mg tablet 500 mg PO BID RF: 0 paroxetine HCl [Paxil] 20 mg tablet 20 mg PO HS RF: 0 cholecalciferol (vitamin D3) 1,000 unit/drop drops 1,000 unit PO HS RF: 0 tramadol 50 mg Tablet 50 mg PO HS RF: 0 nicotine (polacrilex) 4 mg Lozenge 4 mg MUCOUS MEMBRANE Q5H PRNRF: 0 acetaminophen [Mapap Extra Strength] 500 MG tablet 1,000 mg PO Q6H 5 Days Qty: 60 RF: 0 Discharge Instructions Instructions: Lipoma (GEN) Additional Instructions: Activity at Home after surgery: 1. Make sure you walk outside at least 4 times per day 2. You should be able to climb a flight of stairs 3. No driving while in pain or taking pain medications 4. No strenuous activity or heavy lifting for 2 weeks Diet, Nutrition, & wound healin. Avoid alcohol until after you are recovered from your surgery 2. Make sure to eat plenty of lean protein (meat, fish, eggs, cottage cheese, beans) 3. Eat a variety of fruits and vegetables. Eat plenty of high fiber foods to avoid constipation. 4. Drink plenty of liquids to stay hydrated and avoid constipation Pain Medications: 1. Tylenol 650 mg 2. If a narcotic has been prescribed take as directed only for breakthrough pain For Constipation: 1. Take Milk of Magnesia or MiraLax as needed for constipation Other: 1. You may shower daily. Do not scrub the incisions 2. Do not soak the incisions for 1 week 3. You may alternate ice and heat as needed for pain and swelling Wound Care: 1. Keep the incisions clean and dry Please call our office if you develop: 1. Fevers >101.5 2. Nausea or Vomiting 3. Worsening pain 4. Redness and thick discharge from the wounds If after hours please call the Hospital at and ask to speak to the on-call surgeon Referrals: Annika Gunderson MD [ [facility] STAFF PHYSICIAN] - 09/04/19 9:30 am Activity:: no strenuous activity with left arm Diet:: As Tolerated DS: Diagnosis Discharge Diagnosis (1) Lipoma of extremity: Status: Acute
--- NOTE | 2019-08-19 09:23 | ROE_ITS ---
Date of service: 08/19/19 Time of Service: 10:38 Operative Note Operative Note DATE OF PROCEDURE: 08/19/19 PRE-OP DIAGNOSIS: Left posterior shoulder lipoma POST-OP DIAGNOSIS: same PROCEDURE: Excision of lipoma SURGEON: Annika Gunderson ANESTHESIA: MAC (Jesus Thornton, [employer]/ [facility]) PATHOLOGY: other (Lipoma) COMPLICATIONS: None Patient was transported to: same day Patient's condition: stable Indications: Mrs. Maher is a pleasant 39 year old female referred from Dr. Jones for consideration of excision of Left shoulder Lipoma. She states that she first noted the mass about 1 year ago after falling. It then seemed to disappear and then reappear in the recent past. She has been having left shoulder pain as well and was noted to have some tendonitis. MRI is consistent with benign lipoma. It does look like it is sitting on top of the muscle Findings: Multi-lobulated lipoma measuring 10 x 8 cm Procedure Description: After informed consent was obtained in SDS and the mass was marked, the patient was taken to the Operating room and placed in a right lateral position. her left arm was placed on a Corbett stand with pillows. Next monitors were applied and she was given sedation. Once sedated and comfortable a time out was done. The patients, name, date of , allergies to medications, antibiotic prophylaxis, DVT prophylaxis, procedure to be done and site were all reviewed. Fire risk was assessed. Next the patient's skin over the palpable mass was prepped and draped in a sterile surgical fashion. Local anesthetic consisting of Exparel mixed 50/50 with 0.25% bupivacaine was injected into the dermis and subcutaneous tissue. An 8 cm incision was then made over the palpable lipoma. Dissection was done with cautery through a small amount of subcutaneous tissue until the lipoma was identified. Using Littler scissors the lipoma was carefully dissected away from the dermis. The lipoma was noted to be multilobulated so care was taken to make sure that every lobule was removed. The lipoma was carefully dissected away from the deltoid muscle underneath. Small amounts of bleeding were noted and these were cauterized. Once the lipoma was removed in its completion it was marked with a single suture superior and a double suture anterior. It was then removed from the operating room table and measured at 10 x 8 cm. It was then placed into formalin and sent to pathology. At this point the cavity was inspected small amounts of bleeding were again identified and these were cauterized. Once the area was dry, the subcutaneous tissue was reapproximated with 3-0 Vicryl interrupted sutures. The dermis was re-approximated with vertical mattress sutures with 3-0 Prolene. The skin was cleaned and dried and Mastisol and Steri-Strips were applied. 4 x 4's were applied and secured with Medipore tape. The patient was woken up placed on the gurney and taken back to same-day surgery in stable condition. The patient tolerated the procedure well and there were no immediate complications. Needle counts were correct at the end of the case.
--- NOTE | 2019-08-19 09:27 | PDOC.DSDIS_ITS ---
Discharge Plan Disposition Patient Disposition: HOME Condition: Good Discharge Details Reason For Visit: lipoma Attending Provider: Annika Gunderson Primary Care Provider: Carol Randle Home Meds and New Rx's Prescriptions: New acetaminophen [Tylenol] 325 mg tablet 650 mg PO Q6H PRN (Reason: pain) Qty: 30 RF: 0 tramadol 50 mg tablet 50 mg PO Q6H PRN (Reason: pain) Qty: 14 RF: 0 Continued cyclobenzaprine 10 mg tablet 10 mg PO TID RF: 0 naproxen 500 mg tablet 500 mg PO BID RF: 0 paroxetine HCl [Paxil] 20 mg tablet 20 mg PO HS RF: 0 cholecalciferol (vitamin D3) 1,000 unit/drop drops 1,000 unit PO HS RF: 0 tramadol 50 mg Tablet 50 mg PO HS RF: 0 nicotine (polacrilex) 4 mg Lozenge 4 mg MUCOUS MEMBRANE Q5H PRNRF: 0 acetaminophen [Mapap Extra Strength] 500 MG tablet 1,000 mg PO Q6H 5 Days Qty: 60 RF: 0 Discharge Instructions Instructions: Lipoma (GEN) Additional Instructions: Activity at Home after surgery: 1. Make sure you walk outside at least 4 times per day 2. You should be able to climb a flight of stairs 3. No driving while in pain or taking pain medications 4. No strenuous activity or heavy lifting for 2 weeks Diet, Nutrition, & wound healin. Avoid alcohol until after you are recovered from your surgery 2. Make sure to eat plenty of lean protein (meat, fish, eggs, cottage cheese, beans) 3. Eat a variety of fruits and vegetables. Eat plenty of high fiber foods to avoid constipation. 4. Drink plenty of liquids to stay hydrated and avoid constipation Pain Medications: 1. Tylenol 650 mg 2. If a narcotic has been prescribed take as directed only for breakthrough pain For Constipation: 1. Take Milk of Magnesia or MiraLax as needed for constipation Other: 1. You may shower daily. Do not scrub the incisions 2. Do not soak the incisions for 1 week 3. You may alternate ice and heat as needed for pain and swelling Wound Care: 1. Keep the incisions clean and dry Please call our office if you develop: 1. Fevers >101.5 2. Nausea or Vomiting 3. Worsening pain 4. Redness and thick discharge from the wounds If after hours please call the Hospital at and ask to speak to the on-call surgeon Referrals: Annika Gunderson MD [ [facility] STAFF PHYSICIAN] - 09/04/19 9:30 am Activity:: no strenuous activity with left arm Diet:: As Tolerated Discharge Orders Discharge Orders: Discharge Order (Routine); Ordered 08/19/19 Ordered By: Annika Gunderson DS: Diagnosis Discharge Diagnosis (1) Lipoma of extremity: Status: Acute
[2019-08-19] MEDS: ceFAZolin 2 GM/50 ML BAG IVPB (09:58)
[2019-08-19] MEDS: Bupivacaine LIPOSOME/PF 133 MG/10 ML VIAL IJ (10:20)
[2019-08-19] MEDS: Bupivacaine 0.25% Pres-Free 10 ML VIAL (10:20)
--- NOTE | 2019-08-19 10:20 | SOFT_PTH ---
PATIENT: Milagros Maher LOC: [facility] U#:[id number] AGE/SX: 39/F ROOM: RE08/19/[address]: Annika Gunderson MD : 1980 BED: DIS: 08/19/2019 SPEC #: [id number] RECD: 08/19/19 12:31 STATUS: VIOLETA REQ #: [id number] KENISHA: 08/19/19 10:[address]: Annika Gunderson DEPT: Surgical Specimen RECD BY: Maria Dolores Constantino ENTERED: 08/19/19 12:34 SP TYPE: SOFT OTHR DR: Carol Randle Tissues: 1 - SOFT TISSUE MISC (INC. LIPOMA) Procedures: GROSS AND MICRO LEVEL 3 Comments: [id number]
[2019-08-19 11:10] VITALS: BP 132/92; PULSE 85; RESP 18; TEMP 36; O2SAT 98
== END 2019-08-19 11:40 | disposition home or self-care (01) ==
PROVIDERS: PCP Nurse Practitioner Family; Visit Provider Surgery
PROC: (CPT 11406; principal; 2019-08-19 09:00)
DX: D17.1 Benign lipomatous neoplasm of skin and subcutaneous tissue of trunk (principal)
CPT/HCPCS: 11406; 12034; 88304; J0690; J2001; J2250; J3010

== ENCOUNTER 2019-10-16 16:57 | Outpatient (REF) | payer MEDICAID, SELFPAY | END 2019-10-16 17:17 | LOC: NCHCN 16:57 | PROVIDERS: PCP Nurse Practitioner Family; Visit Provider Family Medicine | DX: J20.9 Acute bronchitis, unspecified (principal) | CPT/HCPCS: 87070 ==

== ENCOUNTER 2019-12-17 11:19 | Outpatient (REF) | payer MEDICAID, SELFPAY ==
[2019-12-17 19:37] LABS: Anion Gap 10.6 mmol/L (3-11); BUN 16 mg/dL (7-18); CO2 23.4 mmol/L (21.0-32.0); Chloride 105 mmol/L (98-107); Glucose 94 mg/dL (74-106); Potassium 4.4 mmol/L (3.5-5.1); Sodium 139 mmol/L (136-145)
[2019-12-17 19:48] LABS: Calcium 9.6 mg/dL (8.5-10.1)
== END 2019-12-17 11:39 ==
LOC: NCHCN 11:19
PROVIDERS: PCP Nurse Practitioner Family; Visit Provider Nurse Practitioner Family
DX: R03.0 Elevated blood-pressure reading, without diagnosis of hypertension (principal)
CPT/HCPCS: 80048

== ENCOUNTER 2020-01-01 09:23 | Outpatient (REF) | payer MEDICAID, SELFPAY ==
[2020-01-01 19:20] LABS: Calculated LDL 115 mg/dL (<100); Cholesterol 188 mg/dL (<200); Glucose 92 mg/dL (74-106); HDL Cholesterol 61 mg/dL (40-60); Triglyceride 64 mg/dL (<150)
== END 2020-01-01 09:43 ==
LOC: NCHCN 09:23
PROVIDERS: PCP Nurse Practitioner Family; Visit Provider Nurse Practitioner Family
DX: I10 Essential (primary) hypertension (principal)
CPT/HCPCS: 80061; 82947

== ENCOUNTER 2020-04-25 20:54 | Outpatient (REF) | payer MEDICAID, SELFPAY ==
[2020-05-04 17:55] LABS: SARS-CoV-2 RNA Undetected (Undetected)
== END 2020-04-25 21:14 ==
LOC: NCHCN 20:54
PROVIDERS: PCP Nurse Practitioner Family; Visit Provider Nurse Practitioner Family
DX: Z20.828 Contact with and (suspected) exposure to other viral communicable diseases (principal)
CPT/HCPCS: U0003

== ENCOUNTER 2020-07-25 18:35 | Outpatient (REF) | payer MEDICAID, SELFPAY ==
[2020-07-27 12:47] LABS: COVID-19 RT-PCR UVMMC Result Negative (Negative)
== END 2020-07-25 18:55 ==
LOC: NCHCN 18:35
PROVIDERS: PCP Nurse Practitioner Family; Visit Provider Nurse Practitioner Family
DX: J02.9 Acute pharyngitis, unspecified (principal)
CPT/HCPCS: U0003

== ENCOUNTER 2020-12-13 18:14 | Outpatient (REF) | payer MEDICAID, SELFPAY ==
[2020-12-15 13:54] LABS: COVID-19 RT-PCR UVMMC Result Negative (Negative)
== END 2020-12-13 18:15 | disposition home or self-care (01) ==
LOC: NCHCN 18:14
PROVIDERS: PCP Nurse Practitioner Family; Visit Provider Family Medicine
DX: Z20.822 Contact with and (suspected) exposure to COVID-19 (principal); J06.9 Acute upper respiratory infection, unspecified
CPT/HCPCS: U0003

== ENCOUNTER 2021-01-12 19:42 | Outpatient (REF) | payer MEDICAID, SELFPAY ==
[2021-01-12 19:13] LABS: Anion Gap 12.4 mmol/L (3-11); BUN 11 mg/dL (7-18); CO2 23.6 mmol/L (21.0-32.0); CREATININE 0.9 mg/dL (0.55-1.02); Calcium 9.6 mg/dL (8.5-10.1); Chloride 107 mmol/L (98-107); Glucose 75 mg/dL (74-106); Potassium 4.3 mmol/L (3.5-5.1); Sodium 143 mmol/L (136-145)
[2021-01-12 19:31] LABS: Vitamin D 25 Total 32.3 ng/mL (30-100)
== END 2021-01-12 19:43 | disposition home or self-care (01) ==
LOC: NCHCN 19:42
PROVIDERS: PCP Nurse Practitioner Family; Visit Provider Nurse Practitioner Family
DX: F41.9 Anxiety disorder, unspecified (principal); I10 Essential (primary) hypertension
CPT/HCPCS: 80048; 82306

== ENCOUNTER 2021-02-06 16:04 | Outpatient (REF) | payer MEDICAID, SELFPAY ==
[2021-02-08 18:26] LABS: COVID-19 RT-PCR Result Not Detected ((See Note))
== END 2021-02-06 16:05 | disposition home or self-care (01) ==
LOC: NCHCN 16:04
PROVIDERS: PCP Nurse Practitioner Family; Visit Provider Nurse Practitioner Family
DX: Z20.822 Contact with and (suspected) exposure to COVID-19 (principal); J06.9 Acute upper respiratory infection, unspecified
CPT/HCPCS: U0003

== ENCOUNTER 2021-02-21 01:26 | Outpatient (CLI) | payer MEDICAID, SELFPAY ==
--- NOTE | 2021-02-21 | DI.CT_ITS ---
Exam(s) CT SINUS WO EXAM: CT SINUS WO CLINICAL HISTORY: CHRONIC SINUSITIS,J32.9,JAW PAIN,R68.84,HEADACHE,R51.9. Evaluate for sinusitis. TECHNIQUE: Imaging Protocol: Axial computed tomography images with coronal and sagittal reformatted images were created and reviewed. COMPARISON: CT CT BRAIN CTA from 07/18/2019 FINDINGS: AXIAL IMAGES: Frontal sinuses: Normally aerated. Ethmoid air cells: Normally aerated. Maxillary sinuses: There is a mucous retention cyst or polyp in the left maxillary sinus. Sphenoid sinus: Normally aerated. Ostiomeatal complexes: There does appear to be partial obstruction of the left ostiomeatal complex se condary to the left maxillary cyst or polyp. Osseous nasal septum: Midline. Visualized regional soft tissues: No acute findings. Orbits: Unremarkable. Bones: Unremarkable. Mastoid Air Cells: Normally aerated. IMPRESSION: Mucous retention cyst or polyp in the left maxillary sinus which appears to cause partial obstruction of the left ostiomeatal complex. RADIATION DOSE DELIVERED: 123.11mGy.cm Total DLP DATA REPOSITORY: All CT scans at this facility are submitted to the National Radiology Data Registry (NRDR) Dose Index Registry (DIR) with the [employer] (ACR). RADIATION OPTIMIZATION: All CT scans at this facility use at least one of these dose optimization te chniques: automated exposure control; mA and/or kV adjustment per patient size (includes targeted exa ms where dose is matched to clinical indication); or iterative reconstruction.
== END 2021-02-21 01:46 ==
PROVIDERS: PCP Nurse Practitioner Family; Visit Provider Nurse Practitioner Family
DX: J32.9 Chronic sinusitis, unspecified (principal); R68.84 Jaw pain; R51.9 Headache, unspecified; J33.8 Other polyp of sinus
CPT/HCPCS: 70486

== ENCOUNTER 2021-03-07 10:48 | Outpatient (REF) | payer MEDICAID, SELFPAY ==
[2021-03-07 14:23] LABS: Anion Gap 13.6 mmol/L (3-11); BUN 11 mg/dL (7-18); CO2 22.4 mmol/L (21.0-32.0); CREATININE 0.9 mg/dL (0.55-1.02); Calcium 9.4 mg/dL (8.5-10.1); Chloride 107 mmol/L (98-107); Glucose 90 mg/dL (74-106); Potassium 4.5 mmol/L (3.5-5.1); Sodium 143 mmol/L (136-145)
[2021-03-08 14:18] LABS: COVID-19 RT-PCR UVMMC Result Negative (Negative)
== END 2021-03-07 10:49 | disposition home or self-care (01) ==
LOC: NCHCN 10:48
PROVIDERS: PCP Nurse Practitioner Family; Referring Provider Nurse Practitioner Family; Visit Provider Nurse Practitioner Family
DX: Z20.822 Contact with and (suspected) exposure to COVID-19 (principal); J32.9 Chronic sinusitis, unspecified; R51.9 Headache, unspecified; R68.84 Jaw pain; I10 Essential (primary) hypertension
CPT/HCPCS: 80048; U0003

== ENCOUNTER 2021-07-17 10:23 | Outpatient (REF) | payer MEDICAID, SELFPAY ==
[2021-07-18 10:48] LABS: COVID-19 RT-PCR UVMMC Result Negative (Negative)
== END 2021-07-17 10:24 | disposition home or self-care (01) ==
LOC: NCHCN 10:23
PROVIDERS: PCP Nurse Practitioner Family; Visit Provider Nurse Practitioner Family
DX: Z20.822 Contact with and (suspected) exposure to COVID-19 (principal); J34.89 Other specified disorders of nose and nasal sinuses
CPT/HCPCS: U0003

== ENCOUNTER 2021-09-11 04:02 | Outpatient (CLI) | payer MEDICAID, SELFPAY ==
--- NOTE | 2021-09-11 15:00 | NS.NUTBLAN_ITS ---
Assessment:? Ms. Maher presents for nutritional counseling for weight management.? She verbalizes being very frustrated by her weight gain as well as her difficulty losing weight.? She states that 15 years ago she was 113 lbs.? She is now 222 lbs. and her BMI is 35.4 kg.? Most recently she has gained 23 lbs since June of this year. has also recently started to quit smoking and is down to 5 cigarettes per day I believe from 2 packs per day.? She has also been requiring O2 at night and is scheduled to go for pulmonary function tests to assess for sleep apnea. Her dietary recall shows that she eats quite moderately: Morning:? Coffee with small amount of sweetened creamer. Mid-morning:? fruit or a fruited yogurt or a meal replacement bar. Midday:? She may have a salad with protein or left overs. Evening:? Moderate portions of protein and vegetables.? She has not been having starchy foods at dinner. If she does snack in the evening she has a small piece of dark chocolate. She only drinks water except her one coffee. She is very physically active.? [place] so there are chores every day.? At work she is on her feet the entire day and occasionally will use the elliptical machine that is available to her at work. Nutrition Diagnosis:? Class 2 obesity related to physiologic causes as evidenced by BMI of 35.4 kg/m2 Intervention:? Acknowledged Ms. Maher's frustrations with her difficulties with gaining excess weight as well as her struggle to lose weight.? With regard to her breakfast, I noted that it is high in simple sugars and sometimes low in protein.? She stated she would be willing to change up her breakfast so I suggested that she have a breakfast sandwich made with a low calorie whole grain Turkish muffin or bread or peanut butter on such bread.? Suggested plain citizen of [place] yogurt with berries as well.? I also suggested that she include 20-30 grams of protein at each meal and gave suggestions. We also reviewed carbohydrate counting as I suspect she has become insulin resistant over the years especially if she is not fully oxygenating overnight.? Provided written materials for CHO counting.? Encouraged her to keep under 45 grams of CHO per meal. With regard to physical activity, we discussed the importance of resistance training three days per week.? She states she has bands and can do some resistance exercises three days a week at work or while watching television at night.? Explained how building muscle increases metabolism as the muscle is the calorie burning part of the body. Ms. Maher verbalized an excellent understanding of all we discussed. Monitoring and Evaluation:? I will give Ms. Maher a call in two weeks.? I will evaluate her nutrition care plan at that time and offer suggestions for adjustments as needed. ? Thank you for the referral.
== END 2021-09-11 04:03 | disposition home or self-care (01) ==
PROVIDERS: PCP Nurse Practitioner Family; Visit Provider Dietitian, Registered
DX: E66.8 Other obesity (principal); Z68.35 Body mass index [BMI] 35.0-35.9, adult; Z71.3 Dietary counseling and surveillance
CPT/HCPCS: 97802

== ENCOUNTER 2021-09-18 03:55 | Outpatient (CLI) | payer MEDICAID, SELFPAY ==
[2021-09-18] MEDS: Albuterol HFA 18 GM 200 PUFF INH IH (15:01)
[2021-09-18] MEDS: Inhaler, Assist Device 1 EACH MC (15:01)
[2021-09-18] MEDS: Methacholine 100 MG VIAL IH (15:02)
== END 2021-09-18 03:56 | disposition home or self-care (01) ==
LOC: RT 03:55
PROVIDERS: PCP Nurse Practitioner Family; Visit Provider Nurse Practitioner Family
DX: Z87.09 Personal history of other diseases of the respiratory system (principal); F17.210 Nicotine dependence, cigarettes, uncomplicated; R09.02 Hypoxemia; R06.00 Dyspnea, unspecified; Z82.5 Family history of asthma and other chronic lower respiratory diseases; Z57.5 Occupational exposure to toxic agents in other industries; R94.2 Abnormal results of pulmonary function studies
CPT/HCPCS: 94060; 94070; 94726; 94729; 94010; J7674

== ENCOUNTER 2021-09-22 14:37 | Outpatient (REF) | payer MEDICAID, SELFPAY | END 2021-09-22 14:38 | disposition home or self-care (01) | LOC: NCHCN 14:37 | PROVIDERS: PCP Nurse Practitioner Family; Visit Provider Nurse Practitioner Family | DX: J34.89 Other specified disorders of nose and nasal sinuses (principal) | CPT/HCPCS: 87070 ==

== ENCOUNTER 2021-09-26 14:52 | Outpatient (CLI) | payer MEDICAID, SELFPAY ==
--- NOTE | 2021-09-26 | DI.CT_ITS ---
Exam(s) CT CHEST PE CTA EXAM: CT CHEST PE CTA CLINICAL HISTORY: DYSPNEA R06.00 TACHYCARDIA R00.0 SMOKER F17.200 OBESE E66.9. TECHNIQUE: Imaging Protocol: Axial CT angiography was performed with multi-slice acquisition and mu lti-planar and/or 3D reconstructions. CONTRAST MATERIAL: Intravenous: Omnipaque 350 Contrast volume:100 mL COMPARISON: CT ABD PELVIS WO CONTRAST from 02/04/[address] BRAIN CTA from 07/18/2019 FINDINGS: Tracheobronchial tree: Patent where visualized. Pulmonary parenchyma: Linear infiltrates are seen in the lung bases and the lingula. This may repres ent atelectasis, scarring or pneumonia. No architectural distortion. There is a 0.5 cm pulmonary nod ule in the right upper lobe. There is a 0.4 cm nodule associated with the right major fissure. Pulmonary Arteries: No evidence of filling defect to suggest pulmonary emboli. Mediastinum and Iris: No dominant adenopathy or fluid collection. The esophagus is unremarkable. Visualized thyroid gland: Unremarkable. Pleura: No effusion or pneumothorax. Heart: The heart is not dilated. No coronary artery calcifications are seen. No pericardial effusion. Aorta: Thoracic aorta non-dilated. No evidence of dissection. Upper abdomen: There is diffuse fatty infiltration of the liver. Soft tissues: Unremarkable. Bones: Within normal limits for the patient's age. IMPRESSION: 1. No evidence of pulmonary embolism, thoracic aortic dissection or aneurysm. 2. Two right pulmonary nodules as described above. For low risk patients, optional CT scan in 12 mon ths may be obtained. For high risk patients, (history of smoking or other risk factors), optional CT scan in 12 months may be obtained. (Crystal et al, 2017) RADIATION DOSE DELIVERED: 466.59mGy.cm Total DLP DATA REPOSITORY: All CT scans at this facility are submitted to the National Radiology Data Registry (NRDR) Dose Index Registry (DIR) with the [employer] (ACR). RADIATION OPTIMIZATION: All CT scans at this facility use at least one of these dose optimization te chniques: automated exposure control; mA and/or kV adjustment per patient size (includes targeted exa ms where dose is matched to clinical indication); or iterative reconstruction.
[2021-09-26] MEDS: Omnipaque 350 MG/ML 100 ML BTL IJ (13:08)
== END 2021-09-26 15:12 ==
PROVIDERS: PCP Nurse Practitioner Family; Visit Provider Nurse Practitioner Family
DX: R06.09 Other forms of dyspnea (principal); R00.0 Tachycardia, unspecified; F17.210 Nicotine dependence, cigarettes, uncomplicated; R91.8 Other nonspecific abnormal finding of lung field
CPT/HCPCS: 71275; J3490

== ENCOUNTER 2021-10-02 20:05 | Outpatient (REF) | payer MEDICAID, SELFPAY ==
[2021-10-02 20:49] LABS: HCT 44.7 % (36.0-46.0); HGB 14.5 g/dL (11.2-15.7); MCHC 32.4 % (32.0-36.0); MCV 95.5 fL (80-95); MPV 10.4 fL (8.0-11.0); Platelet Count 394 10^3/uL (130-400); RBC 4.68 10^6/uL (3.93-5.22); RDW 12.6 % (11.7-14.6); RDW-SD 44.2 fL; WBC 13.83 10^3/uL (4.4-10.8)
[2021-10-02 21:12] LABS: Iron 54 ug/dL (50-170); Total Iron Binding Capacity 360 ug/dL (250-450); Transferrin Sat 15 % (15-50)
[2021-10-02 21:19] LABS: Hemoglobin A1C 5.9 % (<5.7)
[2021-10-02 21:28] LABS: ALT 57 U/L (14-59); AST 26 U/L (15-37); Albumin 3.9 g/dL (3.4-5.0); Alkaline Phosphatase 93 U/L (46-116); Bilirubin, Total 0.3 mg/dL (0.2-1.0); Ferritin 62 ng/mL (8-252); TSH 1.33 uIU/mL (0.36-3.74); Total Protein 7.2 g/dL (6.4-8.2)
[2021-10-02 21:35] LABS: Vitamin D 25 Total 32.9 ng/mL (30-100)
[2021-10-02 22:03] LABS: Bilirubin, Direct 0.1 mg/dL (0.0-0.2)
[2021-10-04 09:52] LABS: HBs Antibody, Quant 46.8 mIU/mL (See Note); Hepatitis B Surface Ab Positive (See Note)
[2021-10-04 10:46] LABS: Hepatitis C Ab w Rflx HCV PCR Negative (Negative)
== END 2021-10-02 20:06 | disposition home or self-care (01) ==
LOC: NCHCN 20:05
PROVIDERS: PCP Nurse Practitioner Family; Visit Provider Nurse Practitioner Family
DX: K76.0 Fatty (change of) liver, not elsewhere classified (principal); J45.21 Mild intermittent asthma with (acute) exacerbation
CPT/HCPCS: 80076; 82306; 85027; 86706; 86803; 82728; 83036; 83540; 83550; 84443

== ENCOUNTER 2021-10-16 12:08 | Outpatient (REF) | payer MEDICAID, SELFPAY ==
[2021-10-16 15:29] LABS: HCT 43.6 % (36.0-46.0); HGB 14.2 g/dL (11.2-15.7); MCH 30.7 pg (27.0-33.0); MCHC 32.6 % (32.0-36.0); MCV 94.2 fL (80-95); MPV 10.9 fL (8.0-11.0); Platelet Count 328 10^3/uL (130-400); RBC 4.63 10^6/uL (3.93-5.22); RDW 12.5 % (11.7-14.6); RDW-SD 43.3 fL; WBC 9.25 10^3/uL (4.4-10.8)
[2021-10-16 16:10] LABS: Folate 3.7 ng/mL (8.6-20.0); Vitamin B12 451 pg/mL (193-986)
[2021-10-17 10:11] LABS: Alpha 1 Antitrypsin,Serum 143 mg/dL (90-200)
== END 2021-10-16 12:09 | disposition home or self-care (01) ==
LOC: NCHCN 12:08
PROVIDERS: PCP Nurse Practitioner Family; Visit Provider Nurse Practitioner Family
DX: K76.0 Fatty (change of) liver, not elsewhere classified (principal); J45.21 Mild intermittent asthma with (acute) exacerbation; I10 Essential (primary) hypertension; F17.200 Nicotine dependence, unspecified, uncomplicated; M54.16 Radiculopathy, lumbar region
CPT/HCPCS: 85027; 82103; 82607; 82746

== ENCOUNTER 2021-11-06 18:18 | Emergency (ER) | payer MEDICAID, SELFPAY ==
[2021-11-06] VITALS (32 sets, daily range): BP systolic 98–142; BP diastolic 72–96; PULSE 87–121; RESP 13–28; TEMP 36.7–37.7; O2SAT 96–100
--- OUTSIDE RECORDS SUMMARY | 2021-11-06 18:25 | XMS_ITS | Encounter Summary ---
:1980 Author Care Team Providers Name Role Phone Carol Randle JORDY Primary Care Provider [phone] [facility] Medical Records OTHER [phone] Reason for Visit None recorded. Assessment and Plan 1. Sleep related hypoxemia Recent PSG without any EDDY but she did have hypoxemia with a sp02 carter of 80% and 72 minutes spent with oxygenation <88%. This occurred mostly in REM sleep and she only had 9% REM sleep for the kavita dy so on a typical night (with normal am ount of REM sleep) this is likely worse. She also is a smoker and may have undiagnosed COPD. I explained that weight may play a role and weight loss could help. I discussed the option of starting supple mental 02 with sleep and she was interested in this. An order for 1 lpm is sent to [facility]. I ordered an overnight oximetry on 1 lpm. She is a smoker and is made aware never to smoke or have an open fla me near the oxygen due to risk of fire or explosion. I will see her back in three months. She is asked to call the clinic for any sleep related questions or concerns. I provided greater than 30 minutes in th e care of this patient, more than half the time was spent in guru-cf-[id number] counseling. ? oxygen and equipment ? nocturnal pulse oximeter 2. Dream enactment behavior She says she used to work at [employer] and her said she was trying to serve him coffee in her sleep. 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 Safety precautions were discussed precautions discussed. She has never injured herself in sleep or fallen out of bed. Recent PSG did not reveal any parasomnias or loss o f REM atonia. Her Paxil may cause this and should be weaned if possible (under dire ction of prescriber). I suggested she start melatonin 10 mg QHS in the meantime. ? melatonin 10 mg capsule 3. Periodic leg movements of sleep She is aware of jerking of her legs (cristina dy) prior to falling asleep a few nights a week. No RLS symptoms. Her PSG revealed a PLMi 22.9/hr and PLMai 0.9/hr and even though the arousal index was not elevate d this particular night it is possible this could be contributing to her fatigue. Sh brandy is on Paxil 40 mg which may cause or worsen PLMS and this should be weaned if possib le. Will consider dopamine agonist at follow-up but in general she prefers to hold on any Rx medications. Discussion Note: None recorded.Patient educational handouts: No information available. Plan of Care Reminders Provider Appointments Office 11/07/2021 9:00AM Fani mcfarland, BODY BUMPER Lab None recorded. ? ? Referral None recorded. ? ? Procedures None recorded. ? ? Surgeries None recorded. ? ? Imaging None recorded. ? ? Medications Name Start Date ? ? cetirizine 10 mg tablet ? Take 1 tablet every day by oral route as needed. cholecalciferol (vitamin D3) 25 mcg (1,000 unit) capsu le ? Take 1 capsule every day by oral route. Flonase Allergy Relief 50 mcg/actuation nasal spray,griffin spension ? Victoria 1 spray every day by intranasal route. melatonin 10 mg capsule ? take 1 PO QHS montelukast 10 mg tablet ? Take 1 tablet every day by oral route in the evening. nicotine (polacrilex) 4 mg buccal lozenge ? Take 1 tablet every 2 hours by oral route. Paxil 40 mg tablet ? Take 1 tablet every day by oral route. Proair Digihaler 90 mcg/actuation aerosol powder breat h act, sensor ? Inhale 2 puffs every 4 hours by inhalation route. valsartan 80 mg tablet ? Take 1 tablet every day by oral route at bedtime. Medications Administered None recorded. Vitals Height Weight BMI Blood Pressure 5 ft 7 in 200 lbs 31.3 kg/m2 120/80 mm[Hg] Results Lab Results None recorded. Allergies Code Code System Name Reaction Severity Onset Adhesive Tape ? ? ? Wellbutrin ? ? ? Problems Name Status Onset Date Source ? Body Mass Index 25-29 - Overweight Active 2021 ? Smoker Active 2021 ? Anticipatory Grief Active 2021 ? Posttraumatic Stress Disorder Active 2021 ? Depressive Disorder Active 2021 ? Essential Hypertension Active 2021 ? Raynaud's Disease Active 2021 ? Sinusitis Active 2021 ? Childhood Asthma Active 2021 ? Chronic Endometritis Active 2021 ? Patellofemoral Stress Syndrome Active 2021 ? Plantar Fasciitis Active 2021 ? Headache Active 2021 ? Jaw Pain Active 2021 ? Snoring Active 2021 ? History of Calculus of Kidney Active 2021 ? Bursitis of Left Shoulder Active 2021 ? Dream Enactment Behavior Active 06/01/2021 ? Sleep Related Hypoxemia Active 08/08/2021 ? Periodic Leg Movements of Sleep Active 08/09/2021 ? Procedures None recorded. Vaccine List None recorded. Social History Tobacco Smoking Status Heavy Tobacco Smoker (06/25 Notes: 15 ciggs a day pack per day) What is your level of alcohol None consumption? Live alone or with others? with others Are you currently employed? Y What is your code status? 0 Do you or have you ever used N any other forms of tobacco or nicotine? What is your level of caffeine Occasional Notes: 3-5 cups of consumption? coffee Do you use any illicit or N recreational drugs? What is your occupation? [employer] Functional Status Unknown. Past Encounters 08/09/2021 Sleep Related Hypoxemia; Dream Enactment Behavior; Periodic Leg Movements of Sleep Fani Qureshi BODY BUMPER: [address] [place] [phone], Ph. History of Present Illness Note: <div>Milagros Maher has a visit for PSG results.</div><div>
</div&g t;<div>Milagros was seen by me on . She has a medical history to include HTN, endometriosis, kidney stones, jaw pain, PTSD, Raynauds and headaches.</div><div>
</div><div>She noted symptoms of snoring, night sweats, fatigue, morning headaches, nocturia and dream enactment.</div><div>
</div><div>Polysomnogram was completed on { {DATE 06/26/2021}} (BMI 32.57) and I reviewed the results with {{him her*}} in detail today. Sleep efficiency was {{80 83#}}%, AHI {{NUMBER 0.6#}}/hr, RDI {{NUMBER 2.2#}}/hr, REM AHI {{NUMBER 0#}}/hr, REM RDI {{NUMBER 4.9#}}/hr, supine AHI {{NUMBER 1#}}/hr, right lateral AHI {{NUMBER 1#}}/hr, left lateral AHI {{NUMBER 0#}}/hr, sp02 carter {{NUMBER 80#}}%, {{NUMBER 72#}} minutes were spent at a saturation <88%, arousal index {{NUMBER 13#}}/hr, PLMi {{NUMBER 22.9#}}/hr, PLM arousal index {{NUMBER 0.9#}}/hr. EKG showed {{NSR*}}. Intermittent snoring heard, no parasomnias or loss of REM atonia.&lt ;/div><div>
</div><div>
</div><div>Milagros feels her sleep the night of the study was similar when compared to a typical night at home. She continues w ith above symptoms and offers no new sleep complaints today. </div>Review of Systems: ROS as noted in the HPI Review of Systems None recorded. Physical Exam ? Notes: <div>General: A&O, well groo med {{over weight* obese morbidly obese normal weight thin}}. </div><div>HE AD: normocephalic & atraumatic. </div><div>EYES: non icteric.</div><div>LUNGS : CTA all jolly. Good air movement.</div><div>CARDIO: RRR without murmur, gallop or thrill. </div><div>NEURO: A&O. Lisa l gait.</div><div>PSYCH: Normal mood and affect.</div><div>CUTANEOUS: no overt lesions or rashes</div>
--- OUTSIDE RECORDS SUMMARY | 2021-11-06 18:25 | XMS_ITS ---
:1980 Author Care Team Providers Name Role Phone MARTA GOODE JORDY Primary Care Provider [phone] [facility] MEDICAL RECORDS OTHER [phone] Allergies Code Code System Name Reaction Severity Status Onset Adhesive Tape ? ? Active ? Wellbutrin ? ? Active ? Medications Name Status Start Date Stop Date ? ? cetirizine 10 mg tablet Active ? Not avai lable Take 1 tablet every day by oral route as needed. cholecalciferol (vitamin D3) 25 mcg (1,000 unit) capsule Active ? Not available Take 1 capsule every day by oral route. Flonase Allergy Relief 50 mcg/actuation nasal spray,suspension A ctive ? Not available [place] 1 spray every day by intranasal route. melatonin 10 mg capsule Active ? Not avai lable take 1 PO QHS montelukast 10 mg tablet Active ? Not mitul ilable Take 1 tablet every day by oral route in the evening. Nasonex 50 mcg/actuation [place] Completed ? 1 08/02/2020 [place] 2 sprays every day by intranasal route. nicotine (polacrilex) 4 mg buccal lozenge Active ? Not available Take 1 tablet every 2 hours by oral route. Paxil 20 mg tablet Completed ? 06/01/2021 Take 1 tablet every day by oral route. Paxil 40 mg tablet Active ? Not available Take 1 tablet every day by oral route. Proair Digihaler 90 mcg/actuation aerosol powder breath act, sen sor Active ? Not available Inhale 2 puffs every 4 hours by inhalation route. valsartan 80 mg tablet Active ? Not avail able Take 1 tablet every day by oral route at bedtime. zolpidem 5 mg tablet Completed ? 08/09/2021 take 1-2 PO night of sleep study if needed Problems Name Status Onset Date Source ? [...] Sleep Active 08/09/2021 ? Procedures None recorded. Results Lab Results None recorded. Past Encounters 08/09/2021 Sleep Related Hypoxemia; Dream Enactment Behavior; Periodic Leg Movements of Sleep Fani Qureshi [employer] PROJECT MANAGER: [address] [place] [phone], Ph. 06/01/2021 Snoring; Periodic Leg Movements of Sleep ; Dream Enactment Behavior Fani Qureshi [employer]IOR PROJECT MANAGER: [address] [place] [phone], Ph. Social History Tobacco Smoking Status Heavy Tobacco Smoker (1/2 pack per N otes: 15 ciggs a day day) Vaccine List None recorded. Plan of Care Reminders Provider Appointments None recorded. ? ? Lab None recorded. ? ? Referral None recorded. ? ? Procedures None recorded. ? ? Surgeries None recorded. ? ? Imaging None recorded. ? ? Vitals 08/09/2021 09:15AM Office 30 Height Weight BMI Blood Pressure 170.18 cm 90.72 kg 31.3 kg/m2 120/80 mm[Hg] 06/01/2021 08:30AM New Patient 47 Height Weight BMI 170.18 cm 90.72 kg 31.3 kg/m2
--- NOTE | 2021-11-06 19:15 | DI.RAD_ITS ---
Exam(s) XR PORTABLE CHEST AP EXAM: XR PORTABLE CHEST AP CLINICAL HISTORY: cough. TECHNIQUE: 2D digital imaging was performed. COMPARISON: CR XR SCAPULA LT from 07/02/2019 FINDINGS: Single AP portable view. Heart size is upper normal. The mediastinum is not widened. Lungs are clear. No infiltrates nor obvious pleural effusions. IMPRESSION: No acute pulmonary findings on this single AP portable view of the chest. DATA REPOSITORY: RADIATION DOSE DELIVERED: All CT scans at this facility use at least one of these dose optimization techniques: automated exposure control; mA and/or kV adjustment per patient size (includes targeted e xams where dose is matched to clinical indication); or iterative reconstruction.
--- NOTE | 2021-11-06 20:02 | W.ED.GENAD ---
Discharge Plan Disposition Patient Disposition: HOME Condition: Stable Discharge Details Clinical Impression: COVID-19 Primary Care Provider: Carol Randle ED Provider: Rafael Ramirez Home Meds and New Rx's Prescriptions: Continued montelukast 10 mg tablet 10 mg PO QPM valsartan 80 mg tablet 40 mg PO QHS albuterol sulfate [ProAir HFA] 90 mcg/actuation HFA aerosol inhaler 2 puff inhalation .Q4-6H PRN paroxetine HCl [Paxil] 20 mg tablet 40 mg PO DAILY melatonin 10 mg capsule 10 mg PO HS PRN cholecalciferol (vitamin D3) 1,000 unit/drop drops 1,000 unit PO HS Label Comments: pt med list currently says vitamin D 1000 units oral tablet 1 daily. budesonide-formoterol 80-4.5 mcg/actuation HFA aerosol inhaler 2 puff inhalation BID acetaminophen [Mapap Extra Strength] 500 MG tablet 1,000 mg PO Q6H 5 Days Qty: 60 0RF Held fluticasone propionate [Flonase Allergy Relief] 50 mcg/actuation spray,suspension 2 spray intranasal DAILY Qty: 16 12RF Hold Instructions: Resume on 11/13/21. Rx Instructions: administer into each nostril Discharge Instructions Instructions: COVID-19 (Coronavirus Disease 2019) (ED) Additional Instructions: Paxlovid as directed. Hold Fluticasone propionate while taking Paxlovid. Symbicort requires additional monitoring while taking Paxlovid. Rest, plenty of fluids to avoid dehydration, [id number] Tylenol and/or Motrin as directed for discomfort. Please quit smoking. Watch for new or worsening symptoms and return to the ER for any concerns. Lastly, please contact your primary care provider tomorrow morning to discuss your ER visit, ongoing symptoms, and follow-up as already scheduled but rather than in person, likely telemedicine appointment tomorrow. Medical Decision Making 41-year-old female, current smoker, past medical history of asthma, presents with dry cough, body aches, subjective fever, fatigue that began suddenly earlier today. Certainly concern for flu, COVID, etc. Plan is to obtain a fluid and obtain a chest x-ray. Lungs are clear to auscultation. I do not believe a breathing treatment is indicated. Chest x-ray unremarkable COVID positive Given she is a smoker, history of asthma, patient is in the inclusion criteria for Paxlovid. She is agreeable to taking Paxlovid. We did discuss pros and cons of the medication. We will obtain IV access, give IV fluid, obtain CBC and CMP to evaluate renal function Renal function normal, discussed case with our pharmacist. She recommends holding the Fluticasone propionate nasal spray while taking this medication and it does require additional monitoring with the Symbicort. Patient is scheduled to be seen by her PCP tomorrow. Heart rate is now 102, she is afebrile. We discussed the importance of lbfi-lqz-[id number] medications for symptomatic control. At this time her O2 sat is appropriate and she does not require hospitalization Standard discharge and return precautions were provided. Patient understands, is agreeable to this plan, and has no additional questions or concerns upon discharge. This documentation was generated using [employer] system, please disregard any oddities of phrase or misspellings. Medical Records Medical records reviewed: Yes I reviewed the patient's medical records. Imaging Data Radiologic Study: Attestation: I personally reviewed and interpreted this imaging study as follows: Imaging: X-Ray Radiologist's impression: PROCEDURE INFORMATION: Exam: XR Chest Exam date and time: 11/06/2021 7:31 PM Age: 41 years old Clinical indication: Cough TECHNIQUE: Imaging protocol: XR of the chest. Views: 1 view. COMPARISON: CT CHEST PE CTA 09/26/2021 12:54 PM FINDINGS: Limitations: Patient positioning is rotated. Lungs: No pulmonary consolidation is seen. Pleural spaces: No pleural effusion or pneumothorax is demonstrated. Heart/Mediastinum: Heart size is normal. Bones/joints: The visualized bony structures appear grossly intact. IMPRESSION: No active disease is seen in the chest. Lab Data Lab results reviewed: Yes I reviewed the patient's lab results. Labs: Laboratory Tests Range/Units 11/06/21 11/06/21 11/06/21 19:28 20:49 20:49 WBC (4.4-10.8) 10^3/uL 11.40 H RBC (3.93-5.22) 10^6/uL 4.70 Hgb (11.2-15.7) g/dL 14.4 Hct (36.0-46.0) % 43.1 MCV (80-95) fL 92 MCH (27.0-33.0) pg 30.6 MCHC (32.0-36.0) % 33.4 RDW (11.7-14.6) % 12.5 Plt Count (130-400) 10^3/uL 327 MPV (8.0-11.0) fL 10.3 Immature Gran % 0.4 Neutrophils % 79.8 Lymphocytes % 11.1 Monocytes % 6.6 Eosinophils % 1.2 Basophils % 0.9 Nucleated RBC % (0.0-0.3) % 0.0 Absolute Neutrophils (1.2-6.7) 10^3/uL 9.10 H Absolute Lymphocytes (1.2-3.4) 10^3/uL 1.27 Absolute Monocytes (0.1-0.8) 10^3/uL 0.75 Absolute Eosinophils (0.0-0.7) 10^3/uL 0.14 Absolute Basophils (0.0-0.2) 10^3/uL 0.10 Sodium (136-145) mmol/L 140 Potassium (3.5-5.1) mmol/L 3.9 Chloride (98-107) mmol/L 105 Carbon Dioxide (21.0-32.0) mmol/L 25.4 Anion Gap (3-11) mmol/L 9.6 BUN (7-18) mg/dL 11 Creatinine (0.55-1.02) mg/dL 1.0 Estimated GFR/1.73 m2 (mL/min/1.73m2) >= 60.00 Glucose (74-106) mg/dL 86 Calcium (8.5-10.1) mg/dL 8.8 Total Bilirubin (0.2-1.0) mg/dL 0.3 AST (15-37) U/L 32 ALT (14-59) U/L 46 Alkaline Phosphatase (46-116) U/L 91 Total Protein (6.4-8.2) g/dL 7.6 Albumin (3.4-5.0) g/dL 4.0 COVID-19 Source Nasopharynx SARS-CoV-2 (PCR) (Negative) Positive A Influenza Type A (PCR) (Negative) Negative Influenza Type B (PCR) (Negative) Negative RSV (PCR) (Negative) Negative HPI General Mode of arrival: ambulatory. Date/Time Provider Initiated Documentation: 11/06/21 19:15. Limitations to Documentation: no limitations. Information obtained by: patient. History of Present Illness 41 year old F presents to the emergency department with the chief complaint of Cough, body aches, shortness of breath, described as moderate, with intensity rated at 6. Quality is described as aching (Body aches), and is localized to the back. Patient reports no radiation. Patient started experiencing this hour(s) (12) and it has been constant. No relieving factors improve symptom(s), Other factors that worsen symptoms (Coughing) . Patient notes cough, fever/chills (Subjective) and other (Body aches). Patient did receive the following treatments prior to arrival, none Related Data Home Medications Medication Instructions Recorded Confirmed acetaminophen 500 mg tablet (Mapap 1,000 mg PO Q6H 5 days #60 tabs 02/04/18 11/06/21 Extra Strength) cholecalciferol (vitamin D3) 25 1,000 unit PO HS 07/01/19 11/06/21 mcg/drop (1,000 unit/drop) oral drops albuterol sulfate 90 mcg/actuation 2 puff inhalation .Q4-6H PRN 03/01/21 11/06/21 aerosol inhaler (ProAir HFA) montelukast 10 mg tablet 10 mg PO QPM 03/01/21 11/06/21 valsartan 80 mg tablet 40 mg PO QHS 03/01/21 11/06/21 fluticasone propionate 50 2 spray intranasal DAILY #16 grams 03/15/21 11/06/21 mcg/actuation nasal spray,suspension (Flonase Allergy Relief) paroxetine HCl 20 mg tablet (Paxil) 40 mg PO DAILY 07/12/21 11/06/21 melatonin 10 mg capsule 10 mg PO HS PRN 08/30/21 11/06/21 budesonide-formoterol HFA 80 2 puff inhalation BID 10/03/21 11/06/21 mcg-4.5 mcg/actuation aerosol inhaler Previous Rx's Medication Instructions Recorded acetaminophen 500 mg tablet (Mapap 1,000 mg PO Q6H 5 days #60 tabs 02/04/18 Extra Strength) fluticasone propionate 50 2 spray intranasal DAILY #16 grams 03/15/21 mcg/actuation nasal spray,suspension (Flonase Allergy Relief) Allergies Allergy/AdvReac Type Severity Reaction Status Date / Time adhesive Allergy Skin Rash Verified 11/06/21 18:37 bupropion AdvReac skin Verified 11/06/21 18:37 crawling General Stated Complaint: GenMedical DIANNA: 3 Review of Systems Constitutional Constitutional: Denies fever(s) and Denies headache(s) ENT Ears, Nose, Mouth, and Throat: Denies headache(s) Cardiovascular Cardiovascular: Denies chest pain and Reports dyspnea Respiratory Respiratory: Reports cough and Reports dyspnea Gastrointestinal Gastrointestinal: Denies abdominal pain, Denies nausea and Denies vomiting Genitourinary Genitourinary: Denies dysuria Musculoskeletal Musculoskeletal: Reports myalgias Integumentary/Breasts Skin/Breast: Denies rash Neurologic Neurologic: Denies headache(s) PFSH All Active Problems (Updated 11/06/21 @ 21:50 by DAVID Sparrow) COVID-19 (Acute) Mucocele of maxillary sinus (Acute) Chronic rhinitis (Acute) History of asthma (Acute) Hx of endometriosis (Acute) Kidney stones (Acute) BMI 29.0-29.9,adult (Acute) Tobacco smoker within last 12 months (Acute) Anxiety (Acute) Depression (Acute) Patellofemoral syndrome (Acute) Benign essential HTN (Acute) Lumbar radiculopathy (Acute) Plantar fasciitis, bilateral (Acute) Anticipatory grieving (Acute) Sinusitis, chronic (Acute) Jaw pain (Acute) Headache, unspecified (Acute) Tendinitis of long head of biceps brachii of left shoulder (Acute ~07/2019) Medical History Biceps tendonitis on left Bursitis of left shoulder Dysmenorrhea (03/24/15) Dyspareunia (02/23/15) Fatigue History of depression Light tobacco smoker Lipoma of extremity Menorrhagia (02/23/15) 7-10d menses Pain in left shoulder PTSD (post-traumatic stress disorder) Raynauds syndrome Surgical History Curettage of endometrium (03/17/15) Dr. Rosenda Mathews Pathologic Diagnosis -Proliferative endometrium with extensive stomal breakdown -Benign fragments of squamous mucosa -No cytologic atypia S/P excision of lipoma left shoulder S/P QUINTEN-BSO Family History Mother Asthma Depression Social History Smoking/Tobacco Use Status: Current every day Tobacco Type: cigarettes Smoking risk assessment performed?: Yes Alcohol Intake: current Alcohol Intake frequency: holidays/special occasions only Drug use: Occasionally Substance use type: marijuana Details: has not smoked for 10 days as of 08/16/19 Current gender identity: female Do you feel safe at home: Yes Do you feel safe in your relationship?: Yes Exam Const General: cooperative, healthy appearing, comfortable and no acute distress Orientation: alert, awake and oriented x3 HENMT Head: normal to inspection, normocephalic and atraumatic Ears: external ears normal, TM's normal bilaterally and EAC's normal Face and sinus: normal facial exam Mouth: oral mucosae normal and moist mucous membranes Throat: posterior oropharynx normal Eyes General: appearance normal, both eyes and all related structures Conjunctivae: conjunctivae normal Neck Neck: normal visual inspection, full ROM, no meningeal signs, trachea midline and supple Resp Effort & Inspection: normal respiratory effort, able to speak in complete sentences and cough Quality of cough: dry Auscultation: diminished lung sounds bilaterally in the lower lung jolly Cardio Rate: tachycardic (118) Rhythm: regular rhythm GI Palpation: soft and nontender Back/Spine/Pelvis Back: No back tenderness Skin General skin exam: no rashes or lesions noted Neuro General: patient alert, patient awake, moves all extremities and no focal motor deficits Cognition: normal cognition Speech: speech normal Gait: normal gait Sensory Exam: no sensory deficits noted Extrem General: normal to inspection, full ROM, capillary refill normal, no pedal edema and no calf tenderness Psych Appearance: grossly normal Mental Status: mental status grossly normal Course Vital Signs Vital signs: Vital Signs Temperature 37.7 C H 11/06/21 18:33 Pulse 121 H 11/06/21 18:33 Respiratory Rate 22 11/06/21 18:33 Blood Pressure 142/94 H 11/06/21 18:33 Pulse Oximetry 98 11/06/21 18:33 Temperature 36.7 C 11/06/21 19:24 Temperature Source Skin 11/06/21 19:24 Pulse 109 H 11/06/21 19:24 Respiratory Rate 13 11/06/21 19:24 Respiratory Effort 11/06/21 19:16 Respiratory Depth Normal 11/06/21 19:16 Respiratory Pattern Normal 11/06/21 19:16 Blood Pressure 133/96 H 11/06/21 19:24 Blood Pressure Position Sitting 11/06/21 18:33 Pulse Oximetry 99 11/06/21 19:24 Oxygen Delivery Method Room Air 11/06/21 19:24 Oxygen Flow Rate 0 11/06/21 19:24 Pain Level 4 11/06/21 18:33
[2021-11-06 20:25] LABS: Influenza A PCR Negative (Negative); Influenza B PCR Negative (Negative); RSV PCR Negative (Negative)
[2021-11-06 20:30] LABS: COVID-19 PCR Positive (Negative); Source Nasopharynx
[2021-11-06 20:56] LABS: Abs Immature Grans 0.05 10^3/uL (0.0-0.06); Absolute Eosinophil Count 0.14 10^3/uL (0.0-0.7); Absolute Lymphocyte Count 1.27 10^3/uL (1.2-3.4); Absolute Monocyte Count 0.75 10^3/uL (0.1-0.8); Basophils % 0.9; Eosinophils % 1.2; HCT 43.1 % (36.0-46.0); HGB 14.4 g/dL (11.2-15.7); Immature Grans % 0.4; Lymphocytes % 11.1; MCH 30.6 pg (27.0-33.0); MCHC 33.4 % (32.0-36.0); MCV 92 fL (80-95); MPV 10.3 fL (8.0-11.0); Monocytes % 6.6; Neutrophils % 79.8; Platelet Count 327 10^3/uL (130-400); RDW 12.5 % (11.7-14.6); RDW-SD 42.5 fL
[2021-11-06 21:10] LABS: ALT 46 U/L (14-59); AST 32 U/L (15-37); Alkaline Phosphatase 91 U/L (46-116); Anion Gap 9.6 mmol/L (3-11); BUN 11 mg/dL (7-18); Bilirubin, Total 0.3 mg/dL (0.2-1.0); CO2 25.4 mmol/L (21.0-32.0); Calcium 8.8 mg/dL (8.5-10.1); Chloride 105 mmol/L (98-107); Glucose 86 mg/dL (74-106); Potassium 3.9 mmol/L (3.5-5.1); Sodium 140 mmol/L (136-145); Total Protein 7.6 g/dL (6.4-8.2)
[2021-11-06] MEDS: Normal Saline 1,000 ML 1000 ML IV (22:08)
== END 2021-11-06 22:16 | disposition home or self-care (01) ==
PROVIDERS: Emergency Provider Physician Assistant; PCP Nurse Practitioner Family
DX: U07.1 COVID-19 (principal); R05.1 Acute cough
CPT/HCPCS: 80053; 87637; 96360; 99283; 99284; 71045; 85025

== ENCOUNTER 2022-02-19 10:50 | Outpatient (REF) | payer MEDICAID, SELFPAY ==
[2022-02-19 19:25] LABS: ALT 43 U/L (14-59); AST 22 U/L (15-37); Alkaline Phosphatase 85 U/L (46-116); Amylase 40 U/L (25-115); Anion Gap 9.6 mmol/L (3-11); BUN 12 mg/dL (7-18); Bilirubin, Total 0.3 mg/dL (0.2-1.0); CO2 26.4 mmol/L (21.0-32.0); CREATININE 0.9 mg/dL (0.55-1.02); Calcium 9.5 mg/dL (8.5-10.1); Chloride 107 mmol/L (98-107); Glucose 99 mg/dL (74-106); Lipase 152 U/L (73-393); Potassium 4.2 mmol/L (3.5-5.1); Sodium 143 mmol/L (136-145)
== END 2022-02-19 10:51 | disposition home or self-care (01) ==
LOC: NCHCN 10:50
PROVIDERS: PCP Nurse Practitioner Family; Visit Provider Nurse Practitioner Family
DX: I10 Essential (primary) hypertension (principal); R10.9 Unspecified abdominal pain; E66.9 Obesity, unspecified
CPT/HCPCS: 80053; 83690; 82150

== ENCOUNTER 2022-02-27 16:43 | Outpatient (REF) | payer MEDICAID, SELFPAY ==
[2022-03-01 08:51] LABS: HBs Antibody, Quant 36.2 mIU/mL (See Note); Hepatitis B Surface Ab Positive (See Note)
[2022-03-01 09:55] LABS: Measles IgG Antibody Positive (See Note); Mumps Antibody IgG Positive (See Note); Rubella IgG Ab (UVM) Negative (See Note); Varicella IgG Antibody Positive (See Note)
== END 2022-02-27 16:44 | disposition home or self-care (01) ==
LOC: NCHCN 16:43
PROVIDERS: PCP Nurse Practitioner Family; Visit Provider Nurse Practitioner Family
DX: Z11.59 Encounter for screening for other viral diseases (principal)
CPT/HCPCS: 86706; 86787; 86735; 86762; 86765

== ENCOUNTER → 2022-03-06 02:04 | Outpatient (CLI) | payer MEDICAID, SELFPAY ==
[2022-03-06] MEDS: Barium Sulfate 2% W/V-Berry Smoothie 450 ML BTL PO ×2 (11:59→12:00)
[2022-03-06] MEDS: Omnipaque 350 MG/ML 100 ML BTL IJ (13:11)
--- NOTE | 2022-03-06 13:12 | DI.CT_ITS ---
Exam(s) CT ABDOMEN PELVIS W EXAM: CT ABDOMEN PELVIS W CLINICAL HISTORY: ABD CRAMPS, R10.9. TECHNIQUE: Imaging Protocol: Axial computed tomography images with coronal and sagittal reformatted images were created and reviewed CONTRAST MATERIAL: Intravenous: Omnipaque 350 Contrast volume:100 ml Oral: yes COMPARISON: CT CT CHEST PE CTA from 09/26/2021 FINDINGS: ABDOMEN: Lung Bases: Normal where visualized. Liver: Moderate to severe hepatic steatosis.. No measurable mass. Gallbladder and biliary tract: No radiodense calculus or dilation. Pancreas: Normal density, no abnormal calcifications or inflammatory process. Spleen: Normal. Kidneys: Normal size, contour and axis. No radiodense stones or obstructive uropathy. No masses seen. Adrenal glands: No masses seen. Abdominal Aorta: Abdominal portion non-dilated. PELVIS: Bladder: Empty, not well evaluated. Bowel: Cecum and appendix project posteriorly and inferiorly in the pelvis. No obstruction or bowel wall thickening. Appendix normal. Peritoneal cavity: No ascites, collection or mesenteric inflammatory response. Bones: Within normal limits for age. Reproductive organs: Status post hysterectomy. Lymph nodes: Unremarkable. Impression: No acute abnormality. Hepatic steatosis is noted. RADIATION DOSE DELIVERED: 1,392.79mGy.cm Total DLP DATA REPOSITORY: All CT scans at this facility are submitted to the National Radiology Data Registry (NRDR) Dose Index Registry (DIR) with the [employer] ([employer]). RADIATION OPTIMIZATION: All CT scans at this facility use at least one of these dose optimization te chniques: automated exposure control; mA and/or kV adjustment per patient size (includes targeted exa ms where dose is matched to clinical indication); or iterative reconstruction.
== END ==
PROVIDERS: PCP Nurse Practitioner Family; Visit Provider Nurse Practitioner Family
DX: K76.0 Fatty (change of) liver, not elsewhere classified (principal)
CPT/HCPCS: 74177; J3490

== ENCOUNTER → 2022-03-29 01:56 | Outpatient (CLI) | payer MEDICAID, SELFPAY ==
--- NOTE | 2022-03-29 | DI.CT_ITS ---
Exam(s) CT CHEST WO EXAM: CT CHEST WO CLINICAL HISTORY: ABNL FINDINGS OF LUNG FIELD R91.8 RE-EVALUATE NODULES SEEN ON 10/13 STUDY TECHNIQUE: CT examination of the chest was performed without contrast administration. COMPARISON: CT CT CHEST PE CTA from 09/26/2021 FINDINGS: Images obtained through the upper abdomen show probable hepatic steatosis with otherwise unremarkabl e appearance of visualized portions of the liver and spleen. Visualized portions of the kidneys, adr enals, pancreas are unremarkable. There is no mediastinal or hilar adenopathy. Mediastinal vascular structures appear intact by noncon trast criteria. Tracheobronchial tree appears intact. No pleural effusion or pleural-based mass. Previously described 5 millimeter right upper lobe peripheral intrapulmonary nodule and 4 millimeter fissural nodule on the right are unchanged from prior examination of September 2021. A tiny calcified ri ght basilar pulmonary nodule is also noted consistent with healed granulomatous disease. If the felipe ent is a smoker, follow-up chest CT would be recommended in 12 months.. IMPRESSION: Stable pulmonary nodules in the right lung as described above. If the patient is a smoker, follow-up CT recommended in 12 months. If the patient is a nonsmoker, no additional follow-up recommended.. RADIATION DOSE DELIVERED: 597.06mGy.cm Total DLP CTDIvol 597.06mGy.cm Total DLP !Error CTDIvol DATA REPOSITORY: All CT scans at this facility are submitted to the National Radiology Data Registry (NRDR) Dose Index Registry (DIR) with the [employer] ([employer]CR). RADIATION OPTIMIZATION: All CT scans at this facility use at least one of these dose optimization te chniques: automated exposure control; mA and/or kV adjustment per patient size (includes targeted exa ms where dose is matched to clinical indication); or iterative reconstruction.
== END ==
PROVIDERS: PCP Nurse Practitioner Family; Visit Provider Internal Medicine Pulmonary Disease
DX: R91.8 Other nonspecific abnormal finding of lung field (principal)
CPT/HCPCS: 71250

== ENCOUNTER 2022-04-12 20:30 | Emergency (ER) | payer MEDICAID, SELFPAY ==
[2022-04-12 20:35] VITALS: BP 140/89; PULSE 90; RESP 18; TEMP 36.5; O2SAT 100
--- NOTE | 2022-04-15 20:24 | ED.GENADUL_ITS ---
Discharge Plan Disposition Patient Disposition: HOME Condition: Stable Discharge Details Clinical Impression: Calf pain, Gastrocnemius tear Primary Care Provider: Carol Randle ED Provider: Maria Dolores Castellanos Home Meds and New Rx's Prescriptions: Continued montelukast 10 mg tablet 10 mg PO QPM valsartan 80 mg tablet 40 mg PO QHS albuterol sulfate [ProAir HFA] 90 mcg/actuation HFA aerosol inhaler 2 puff inhalation .Q4-6H PRN fluticasone propionate [Flonase Allergy Relief] 50 mcg/actuation spray,suspension 2 spray intranasal DAILY Qty: 16 12RF Hold Instructions: Resume on 11/13/21. Rx Instructions: administer into each nostril paroxetine HCl [Paxil] 20 mg tablet 40 mg PO DAILY melatonin 10 mg capsule 10 mg PO HS PRN cholecalciferol (vitamin D3) 1,000 unit/drop drops 1,000 unit PO HS Label Comments: pt med list currently says vitamin D 1000 units oral tablet 1 daily. budesonide-formoterol 80-4.5 mcg/actuation HFA aerosol inhaler 2 puff inhalation BID acetaminophen [Mapap Extra Strength] 500 MG tablet 1,000 mg PO Q6H 5 Days Qty: 60 0RF Discharge Instructions Instructions: Leg Pain (ED) Additional Instructions: Complaint discharge follow-up with your PCP tomorrow Follow-up for ultrasound Follow-up with physical therapy Ibuprofen and tylenol Weightbearing as tolerated Return earlier should you have new or worsening complaints Stand Alone Forms: Physical Therapy Referral Referrals: Carol Randle [Primary Care Provider] - 3 days Discharge Data Discharge Date/Time-TO BE ENTERED AT DEPARTURE: 04/12/22 21:21 Medical Decision Making Patient appears well, low suspicion for DVT but ultrasound of her right lower extremity ordered No indication for emergent MRI, CT, or x-ray imaging Achilles tendon intact, suspect gastrocnemius strain Discharged home in stable condition with stable vitals, PT referral supplied Return precautions discussed and patient expressed understanding Medical Records Medical records reviewed: Yes I reviewed the patient's medical records. HPI General Date/Time Provider Initiated Documentation: 04/12/22 21:12 . HPI Narrative: This 41-year-old female presents with right calf pain. Yesterday she felt a snapping recoil in her right calf. She states that she had pain since that time. She was seen at [facility] and did not have any diagnostic imaging ordered and became concerned. She presents today as she is worried that she tore a tendon. She states she is able to ambulate with discomfort. She denies any chest pain or shortness of breath. Denies any additional complaints at this time. Related Data Home Medications Medication Instructions Recorded Confirmed acetaminophen 500 mg tablet (Mapap 1,000 mg PO Q6H 5 days #60 tabs 02/04/18 04/13/22 Extra Strength) cholecalciferol (vitamin D3) 25 1,000 unit PO HS 07/01/19 04/13/22 mcg/drop (1,000 unit/drop) oral drops albuterol sulfate 90 mcg/actuation 2 puff inhalation .Q4-6H PRN 03/01/21 04/13/22 aerosol inhaler (ProAir HFA) montelukast 10 mg tablet 10 mg PO QPM 03/01/21 04/13/22 valsartan 80 mg tablet 40 mg PO QHS 03/01/21 04/13/22 fluticasone propionate 50 2 spray intranasal DAILY #16 grams 03/15/21 04/13/22 mcg/actuation nasal spray,suspension (Flonase Allergy Relief) paroxetine HCl 20 mg tablet (Paxil) 40 mg PO DAILY 07/12/21 04/13/22 melatonin 10 mg capsule 10 mg PO HS PRN 08/30/21 04/13/22 budesonide-formoterol HFA 80 2 puff inhalation BID 10/03/21 04/13/22 mcg-4.5 mcg/actuation aerosol inhaler Previous Rx's Medication Instructions Recorded acetaminophen 500 mg tablet (Mapap 1,000 mg PO Q6H 5 days #60 tabs 02/04/18 Extra Strength) fluticasone propionate 50 2 spray intranasal DAILY #16 grams 03/15/21 mcg/actuation nasal spray,suspension (Flonase Allergy Relief) Allergies Allergy/AdvReac Type Severity Reaction Status Date / Time adhesive Allergy Skin Rash Verified 04/12/22 20:39 bupropion AdvReac skin Verified 04/12/22 20:39 crawling General Stated Complaint: Orthopedic DIANNA: 5 Review of Systems All systems reviewed & are unremarkable except as noted in HPI and below PFSH All Active Problems Calf pain (Acute) Gastrocnemius tear (Acute) Asthma (Chronic) COVID-19 (Acute) Mucocele of maxillary sinus (Acute) Chronic rhinitis (Acute) History of asthma (Acute) Hx of endometriosis (Acute) Kidney stones (Acute) BMI 29.0-29.9,adult (Acute) Tobacco smoker within last 12 months (Acute) Anxiety (Acute) Depression (Acute) Patellofemoral syndrome (Acute) Benign essential HTN (Acute) Lumbar radiculopathy (Acute) Plantar fasciitis, bilateral (Acute) Anticipatory grieving (Acute) Sinusitis, chronic (Acute) Jaw pain (Acute) Headache, unspecified (Acute) Tendinitis of long head of biceps brachii of left shoulder (Acute ~07/2019) Medical History Biceps tendonitis on left Bursitis of left shoulder Dysmenorrhea (03/24/15) Dyspareunia (02/23/15) Fatigue History of depression Light tobacco smoker Lipoma of extremity Menorrhagia (02/23/15) 7-10d menses Pain in left shoulder PTSD (post-traumatic stress disorder) Raynauds syndrome Surgical History Curettage of endometrium (03/17/15) Dr. Rosenda Mathews Pathologic Diagnosis -Proliferative endometrium with extensive stomal breakdown -Benign fragments of squamous mucosa -No cytologic atypia S/P excision of lipoma left shoulder S/P QUINTEN-BSO Family History Mother Asthma Depression Social History Smoking/Tobacco Use Status: Current every day Tobacco Type: cigarettes Smoking risk assessment performed?: Yes Alcohol Intake: current Alcohol Intake frequency: holidays/special occasions only Drug use: Occasionally Substance use type: marijuana Details: has not smoked for 10 days as of 08/16/19 Current gender identity: female Do you feel safe at home: Yes Do you feel safe in your relationship?: Yes Exam Const General: cooperative, comfortable and no acute distress Extrem Other: right calf terness proximal gastrocnemius no swelling distal pulses and sensation intact Course Vital Signs Vital signs: Vital Signs Temperature 36.5 C 04/12/22 20:35 Pulse 90 04/12/22 20:35 Respiratory Rate 18 04/12/22 20:35 Blood Pressure 140/89 04/12/22 20:35 Pulse Oximetry 100 04/12/22 20:35 Temperature 36.5 C 04/12/22 20:35 Temperature Source Tympanic 04/12/22 20:35 Pulse 90 04/12/22 20:35 Respiratory Rate 18 04/12/22 20:35 Blood Pressure 140/89 04/12/22 20:35 Blood Pressure Position Sitting 04/12/22 20:35 Pulse Oximetry 100 04/12/22 20:35 Pain Level 6 04/12/22 20:35
== END 2022-04-12 21:21 | disposition home or self-care (01) ==
PROVIDERS: Emergency Provider Physician Assistant; PCP Nurse Practitioner Family
DX: S86.811A Strain of other muscle(s) and tendon(s) at lower leg level, right leg, initial encounter (principal); X58.XXXA Exposure to other specified factors, initial encounter
CPT/HCPCS: 99281; 99282

== ENCOUNTER → 2022-04-13 09:11 | Outpatient (CLI) | payer MEDICAID, SELFPAY ==
--- NOTE | 2022-04-13 | DI.US_ITS ---
Exam(s) US LOWER EXTREMITY VENOUS RT EXAM: US LOWER EXTREMITY VENOUS RT CLINICAL HISTORY: RT CALF PAIN ?DVT TECHNIQUE: Grayscale, color, and doppler imaging of the deep venous system of the right lower extrem ity was performed. COMPARISON: US PELVIS TRANSVAG from 03/09/2015 FINDINGS: There is no evidence of intraluminal thrombus and there is normal compression and augmentation demons trated within the common femoral vein, femoral vein, and popliteal vein. In the ipsilateral calf the interrogated veins also exhibit normal compression/ augmentation properti es. The ipsilateral saphenofemoral junction is patent. IMPRESSION: 1. No evidence of DVT in the right lower extremity. DATA REPOSITORY:
== END ==
PROVIDERS: PCP Nurse Practitioner Family; Visit Provider Physician Assistant
DX: M79.661 Pain in right lower leg (principal)
CPT/HCPCS: 93971

== ENCOUNTER 2022-04-13 10:52 | Emergency (ER) | payer MEDICAID, SELFPAY ==
[2022-04-13 11:06] VITALS: BP 135/83; PULSE 81; RESP 18; TEMP 36.8; O2SAT 99
--- NOTE | 2022-04-13 12:20 | ED.GENADUL_ITS ---
Discharge Plan Disposition Patient Disposition: HOME Condition: Stable Discharge Details Clinical Impression: Calf pain Primary Care Provider: Carol Randle ED Provider: Rafael Ramirez Home Meds and New Rx's Prescriptions: Continued montelukast 10 mg tablet 10 mg PO QPM valsartan 80 mg tablet 40 mg PO QHS albuterol sulfate [ProAir HFA] 90 mcg/actuation HFA aerosol inhaler 2 puff inhalation .Q4-6H PRN fluticasone propionate [Flonase Allergy Relief] 50 mcg/actuation spray,suspension 2 spray intranasal DAILY Qty: 16 12RF Hold Instructions: Resume on 11/13/21. Rx Instructions: administer into each nostril paroxetine HCl [Paxil] 20 mg tablet 40 mg PO DAILY melatonin 10 mg capsule 10 mg PO HS PRN cholecalciferol (vitamin D3) 1,000 unit/drop drops 1,000 unit PO HS Label Comments: pt med list currently says vitamin D 1000 units oral tablet 1 daily. budesonide-formoterol 80-4.5 mcg/actuation HFA aerosol inhaler 2 puff inhalation BID acetaminophen [Mapap Extra Strength] 500 MG tablet 1,000 mg PO Q6H 5 Days Qty: 60 0RF Discharge Instructions Instructions: Leg Pain (ED) Additional Instructions: Ultrasound is unremarkable. Continue with your Fabio wrap and crutches, advance activity as tolerated. Be sure to follow-up with PT as directed last night. Rest, elevate, cool compresses every 2 hours for 20 minutes. Gentle stretching as tolerated. [id number] Tylenol and/or Motrin as directed for discomfort. Please watch for new or worsening symptoms and return to the ER for any concerns. Otherwise please contact your primary care provider to discuss your ER visit need for outpatient reevaluation Medical Decision Making 41-year-old female presents to the ER for ultrasound results of her right lower extremity. Ultrasound is negative. Patient already with an Fabio wrap, crutches, PT referral. Standard discharge and return precautions were provided. Patient understands, is agreeable to this plan, and has no additional questions or concerns upon discharge. This documentation was generated using Compliance Controlation system, please disregard any oddities of phrase or misspellings. Medical Records Medical records reviewed: Yes I reviewed the patient's medical records. Imaging Data Radiologic Study: Attestation: I personally reviewed and interpreted this imaging study as follows: Imaging: Ultrasound Radiologist's impression: Exam(s) US LOWER EXTREMITY VENOUS RT EXAM: US LOWER EXTREMITY VENOUS RT CLINICAL HISTORY: RT CALF PAIN ?DVT TECHNIQUE: Grayscale, color, and doppler imaging of the deep venous system of the right lower extremity was performed. COMPARISON: US PELVIS TRANSVAG from 03/09/2015 FINDINGS: There is no evidence of intraluminal thrombus and there is normal compression and augmentation demonstrated within the common femoral vein, femoral vein, and popliteal vein. In the ipsilateral calf the interrogated veins also exhibit normal compression/ augmentation properties. The ipsilateral saphenofemoral junction is patent. IMPRESSION: 1. No evidence of DVT in the right lower extremity. HPI General Mode of arrival: ambulatory . Date/Time Provider Initiated Documentation: 04/13/22 10:53 . Limitations to Documentation: no limitations . Information obtained by: patient . HPI Narrative: This is a 41-year-old female presenting to the ER for ultrasound results, seen in the ER yesterday for right calf pain, outpatient order placed for ultrasound today. Patient reports increased exercise over the past month, has had bilateral calf pain but had more pain on the right side roughly 1 week ago. Denies history of DVT or PE. Denies chest pain or shortness of breath. Patient was seen at [facility], told that she may have injured her muscle but no additional therapy. Last night ultrasound was ordered, Fabio wrap applied, PT referral provided, crutches provided. Patient had no additional questions or c oncerns at this time Related Data Home Medications Medication Instructions Recorded Confirmed acetaminophen 500 mg tablet (Mapap 1,000 mg PO Q6H 5 days #60 tabs 02/04/18 04/13/22 Extra Strength) cholecalciferol (vitamin D3) 25 1,000 unit PO HS 07/01/19 04/13/22 mcg/drop (1,000 unit/drop) oral drops albuterol sulfate 90 mcg/actuation 2 puff inhalation .Q4-6H PRN 03/01/21 04/13/22 aerosol inhaler (ProAir HFA) montelukast 10 mg tablet 10 mg PO QPM 03/01/21 04/13/22 valsartan 80 mg tablet 40 mg PO QHS 03/01/21 04/13/22 fluticasone propionate 50 2 spray intranasal DAILY #16 grams 03/15/21 04/13/22 mcg/actuation nasal spray,suspension (Flonase Allergy Relief) paroxetine HCl 20 mg tablet (Paxil) 40 mg PO DAILY 07/12/21 04/13/22 melatonin 10 mg capsule 10 mg PO HS PRN 08/30/21 04/13/22 budesonide-formoterol HFA 80 2 puff inhalation BID 10/03/21 04/13/22 mcg-4.5 mcg/actuation aerosol inhaler Previous Rx's Medication Instructions Recorded acetaminophen 500 mg tablet (Mapap 1,000 mg PO Q6H 5 days #60 tabs 02/04/18 Extra Strength) fluticasone propionate 50 2 spray intranasal DAILY #16 grams 03/15/21 mcg/actuation nasal spray,suspension (Flonase Allergy Relief) Allergies Allergy/AdvReac Type Severity Reaction Status Date / Time adhesive Allergy Skin Rash Verified 04/12/22 20:39 bupropion AdvReac skin Verified 04/12/22 20:39 crawling General Stated Complaint: Recheck DIANNA: 5 Review of Systems Constitutional Constitutional: Denies fever(s) and Denies weakness Cardiovascular Cardiovascular: Denies chest pain and Denies dyspnea Respiratory Respiratory: Denies cough and Denies dyspnea Musculoskeletal Musculoskeletal: Denies arthralgias, Denies numbness and Denies tingling Integumentary/Breasts Skin/Breast: Denies rash Neurologic Neurologic: Denies numbness, Denies tingling and Denies weakness Hematologic/Lymphatic Hematologic/Lymphatic: Denies easy bleeding and Denies easy bruising PFSH All Active Problems Calf pain (Acute) Gastrocnemius tear (Acute) Asthma (Chronic) COVID-19 (Acute) Mucocele of maxillary sinus (Acute) Chronic rhinitis (Acute) History of asthma (Acute) Hx of endometriosis (Acute) Kidney stones (Acute) BMI 29.0-29.9,adult (Acute) Tobacco smoker within last 12 months (Acute) Anxiety (Acute) Depression (Acute) Patellofemoral syndrome (Acute) Benign essential HTN (Acute) Lumbar radiculopathy (Acute) Plantar fasciitis, bilateral (Acute) Anticipatory grieving (Acute) Sinusitis, chronic (Acute) Jaw pain (Acute) Headache, unspecified (Acute) Tendinitis of long head of biceps brachii of left shoulder (Acute ~07/2019) Medical History Biceps tendonitis on left Bursitis of left shoulder Dysmenorrhea (03/24/15) Dyspareunia (02/23/15) Fatigue History of depression Light tobacco smoker Lipoma of extremity Menorrhagia (02/23/15) 7-10d menses Pain in left shoulder PTSD (post-traumatic stress disorder) Raynauds syndrome Surgical History Curettage of endometrium (03/17/15) Dr. Rosenda Mathews Pathologic Diagnosis -Proliferative endometrium with extensive stomal breakdown -Benign fragments of squamous mucosa -No cytologic atypia S/P excision of lipoma left shoulder S/P QUINTEN-BSO Family History Mother Asthma Depression Social History Smoking/Tobacco Use Status: Current every day Tobacco Type: cigarettes Smoking risk assessment performed?: Yes Alcohol Intake: current Alcohol Intake frequency: holidays/special occasions only Drug use: Occasionally Substance use type: marijuana Details: has not smoked for 10 days as of 08/16/19 Current gender identity: female Do you feel safe at home: Yes Do you feel safe in your relationship?: Yes Exam Const General: cooperative, healthy appearing, comfortable and no acute distress Orientation: alert and awake [facility] Head: normal to inspection, normocephalic and atraumatic Eyes Conjunctivae: conjunctivae normal Neck Neck: normal visual inspection, trachea midline and supple Resp Effort & Inspection: normal respiratory effort and able to speak in complete sentences Auscultation: clear to auscultation bilaterally Cardio Rate: regular rate Rhythm: regular rhythm Skin General skin exam: no rashes or lesions noted Neuro General: patient alert, patient awake, moves all extremities and no focal motor deficits Cognition: normal cognition Speech: speech normal Gait: antalgic and gait assisted Method: crutches Motor: muscle tone normal throughout Sensory Exam: no sensory deficits noted Extrem General: normal to inspection, full ROM, capillary refill normal and no pedal edema Other: Right lower extremity unremarkable visual examination. Normal pedal pulse and capillary refill. There is diffuse posterior calf discomfort without palpable cord. Psych Appearance: grossly normal Mental Status: mental status grossly normal Course Vital Signs Vital signs: Vital Signs Temperature 36.8 C 04/13/22 11:06 Pulse 81 04/13/22 11:06 Respiratory Rate 18 04/13/22 11:06 Blood Pressure 135/83 04/13/22 11:06 Pulse Oximetry 99 04/13/22 11:06 Temperature 36.8 C 04/13/22 11:06 Temperature Source Temporal Artery Scan 04/13/22 11:06 Pulse 81 04/13/22 11:06 Respiratory Rate 18 04/13/22 11:06 Blood Pressure 135/83 04/13/22 11:06 Blood Pressure Position Sitting 04/13/22 11:06 Pulse Oximetry 99 04/13/22 11:06 Oxygen Delivery Method Room Air 04/13/22 11:06 Oxygen Flow Rate 0 04/13/22 11:06 Pain Level 0 04/13/22 11:06
== END 2022-04-13 12:01 | disposition home or self-care (01) ==
PROVIDERS: Emergency Provider Physician Assistant; PCP Nurse Practitioner Family
DX: M79.661 Pain in right lower leg (principal)
CPT/HCPCS: 99281; 99282

== ENCOUNTER 2022-07-06 08:53 | Day surgery (SDC) | payer MEDICAID, SELFPAY ==
--- NOTE | 2022-07-05 18:11 | ANES.PREOP_ITS ---
General Info Date of Service Date Performed: 07/06/22 Height: 5 ft 6.5 in Weight: 92.986 kg Body Mass Index (BMI): 32.5 Surgical Procedure: Operation Date: 07/06/22 10:40 Proposed Procedure Side Surgeon p Cholecystectomy Laparoscopic possible Open Jori Cherry MD Meds Allergies and Home Medications Allergies Allergy/AdvReac Type Severity Reaction Status Date / Time adhesive Allergy Skin Rash Verified 07/05/22 12:41 bupropion AdvReac skin Verified 07/05/22 12:41 crawling Home Medication Medication Instructions Recorded cholecalciferol (vitamin D3) 25 1,000 unit PO HS 07/01/19 mcg/drop (1,000 unit/drop) oral drops albuterol sulfate 90 mcg/actuation 2 puff inhalation .Q4-6H PRN 03/01/21 aerosol inhaler (ProAir HFA) montelukast 10 mg tablet 10 mg PO QPM 03/01/21 valsartan 80 mg tablet 40 mg PO QHS 03/01/21 fluticasone propionate 50 2 spray intranasal DAILY #16 grams 03/15/21 mcg/actuation nasal spray,suspension (Flonase Allergy Relief) paroxetine HCl 20 mg tablet (Paxil) 40 mg PO DAILY 07/12/21 melatonin 10 mg capsule 10 mg PO HS PRN 08/30/21 budesonide-formoterol HFA 80 2 puff inhalation BID 10/03/21 mcg-4.5 mcg/actuation aerosol inhaler folic acid 1 mg tablet 1 mg PO DAILY 06/04/22 loratadine 10 mg tablet (Allergy 10 mg PO DAILY 06/04/22 Relief (loratadine)) pantoprazole 40 mg tablet,delayed 40 mg PO BID 06/04/22 release tiotropium bromide 2.5 2 puff inhalation DAILY 06/04/22 mcg/actuation mist for inhalation (Spiriva Respimat) vitamin B complex (B 1 tab PO DAILY 06/04/22 Complex-Vitamin B12 tablet) Current Visit Medications: Current Medications Generic Name Dose Route Start Last Admin Trade Name Freq PRN Reason Stop Dose Admin Acetaminophen 1,000 mg 07/06/22 06:00 Acetaminophen 500 Mg Tab PO 07/06/22 23:59 PREOP LANA Gabapentin 600 mg 07/06/22 06:00 Gabapentin 300 Mg Cap PO 01/13/23 23:59 PREOP LANA Ringer's Solution 1,000 mls @ 80 mls/hr 07/06/22 06:00 IV 07/06/22 23:59 INFUSION LANA Cefazolin Sodium/Dextrose 2 gm in 50 mls @ 100 mls/hr 07/06/22 06:00 Ancef Duplex IVPB 07/06/22 23:59 PREOP LANA IV Miscellaneous Supplies 1 each 07/06/22 06:00 Iv Access IV 07/06/22 23:59 DIRECTED LANA Sodium Chloride 0 ml 07/06/22 06:00 Normal Saline Flush 10 Ml Syr IV 07/06/22 23:59 PRN PRN Sodium Chloride 0 ml 07/06/22 06:00 Normal Saline 10 Ml Vial IJ 07/06/22 23:59 DIRECTED PRN Sterile Water 0 ml 07/06/22 06:00 Water,Injection,Sterile 10 Ml Vial IJ 07/06/22 23:59 DIRECTED PRN PFSH Active Problems Active Problems: Problem Status Onset Code Patellofemoral syndrome M22.2X9 Depression F32.9 Anxiety F41.9 BMI 29.0-29.9,adult Z68.29 Kidney stones N20.0 Hx of endometriosis Z87.42 History of asthma Z87.09 Tendinitis of long head of biceps brachii of left shoulder ~07/2019 M75.22 Headache, unspecified R51.9 Jaw pain R68.84 Sinusitis, chronic J32.9 Anticipatory grieving F43.20 Plantar fasciitis, bilateral M72.2 Lumbar radiculopathy M54.16 Benign essential HTN I10 Tobacco smoker within last 12 months F17.200 Chronic rhinitis J31.0 Mucocele of maxillary sinus J34.1 COVID-19 U07.1 Asthma J45.909 Biliary dyskinesia K82.8 Medical History Medical History Biceps tendonitis on left Bursitis of left shoulder Dysmenorrhea (03/24/15) Dyspareunia (02/23/15) Fatigue History of depression Hypoxemia per pt. states when she sleeps her o2 drops to the 80's and has to wear 2L O2 at night Light tobacco smoker Lipoma of extremity Menorrhagia (02/23/15) 7-10d menses Pain in left shoulder PTSD (post-traumatic stress disorder) Per pt. states no issues currently Raynauds syndrome Requires supplemental oxygen per pt. states when she sleeps her O2 drops to the 80's and has to wear 2L O2 at night Surgical History Surgical History Curettage of endometrium (03/17/15) Dr. Rosenda Mathews Pathologic Diagnosis -Proliferative endometrium with extensive stomal breakdown -Benign fragments of squamous mucosa -No cytologic atypia S/P excision of lipoma left shoulder S/P QUINTEN-BSO Tobacco Smoking/Tobacco Use Status: Current every day Tobacco Type: cigarettes Alcohol Alcohol Intake: current Alcohol intake frequency: holidays/special occasions only Substance Use Substance use: Rarely Substance use type: marijuana Vital Signs and Lab Results Vital Signs Most Recent Vital Signs in EMR: Temp Pulse Resp BP Pulse Ox 36.3 C L 90 18 127/86 96 07/06/22 09:08 07/06/22 09:08 07/06/22 09:08 07/06/22 09:08 07/06/22 09:08 Lab Results Blood Type / Crossmatch: No Data to Display Complete Blood Count: No Data to Display Complete Metabolic Panel: No Data to Display Liver Function Panel: No Data to Display Coagulation Panel: No Data to Display Cardiac Panel: No Data to Display Arterial Blood Gas: No Data to Display Venous Blood Gas: No Data to Display Pancreas Panel: No Data to Display Thyroid Panel: No Data to Display Infectious Disease: No Data to Display Blood Cultures: No Data to Display Toxicology Panel: No Data to Display Panel: No Data to Display Imaging and Studies Imaging and Studies Study information below may be from another EMR and interpreted by another pr ovider. Please see original notes in EMR for more complete details. Pulmonary Function Summary: : positive methacholine, otherwise normal. Anesthesia Assessment and Plan Anesthesia History Personal History: No History of Anesthesia Complications Family History: No Family History of Anesthesia Complications Exercise Tolerance Exercise Tolerance: Metabolic Equivalents>4 Cardiac & Pulmonary Exam Cardiac Exam: Normal S1/S2 Heart Sounds Pulmonary Exam: Clear Bilateral Breath Sounds Implantable Cardiac Device Does patient have a Pacemaker or an ICD?: No Airway Exam Known Difficult Airway: No Mallampati Class: 2 Mouth Opening: Normal (> 3cm) Thyromental Distance: Less than 3 cm Neck Range of Motion: Full ROM Neck Circumference: Normal Teeth Condition: Edentulous ASA Classification ASA Score: ASA 2 Emergency Case?: No NPO Status NPO Status: NPO Clears >2 hours, Solids >8 hours Status Status: History of Hysterectomy Anesthesia Plan Resuscitation Status: Full Code Anesthesia Technique: General Anesthesia Airway Planned: Endotracheal Tube Monitors Used: Standard Monitors Preoperative Comments:: 42 yo female for lap katrin. Sig PMHX: depression/anxiety, HTN (valsartan), asthma (Symbicort, spiriva, albuterol), GERD (pantoprazole twice daily, poorly controlled) PTSD, sleep apnea with noc 2 lpm O2, daily smoker, occ EtOH/cannabis, pulmonary nodule, was preDM (last A1c was better). Plan: GAETT, with preop cocktail (ordered by surgeon)
--- NOTE | 2022-07-05 20:49 | W.PREOPHP ---
Assessment and Plan Assessment and plan (1) Biliary dyskinesia: Status: Acute Assessment and plan: We will proceed with cholecystectomy today. I discussed the risks and benefits of the operation, and the anticipated recovery. She provided informed consent today. History of Present Illness History of Present Illness Chief Complaint: Abdominal pain Narrative: Milagros is a 42 year old woman with abdominal pain. She underwent a HIDA scan that showed a gall bladder ejection fraction around 37%. She wants a cholecystectomy to reduce her abdominal pain symptoms. PFSH All Active Problems Patellofemoral syndrome (Acute) Depression (Acute) Anxiety (Acute) BMI 29.0-29.9,adult (Acute) Kidney stones (Acute) Hx of endometriosis (Acute) History of asthma (Acute) Tendinitis of long head of biceps brachii of left shoulder (Acute ~07/2019) Headache, unspecified (Acute) Jaw pain (Acute) Sinusitis, chronic (Acute) Anticipatory grieving (Acute) Plantar fasciitis, bilateral (Acute) Lumbar radiculopathy (Acute) Benign essential HTN (Acute) Tobacco smoker within last 12 months (Acute) Chronic rhinitis (Acute) Mucocele of maxillary sinus (Acute) COVID-19 (Acute) Asthma (Chronic) Biliary dyskinesia (Acute) Medical History Biceps tendonitis on left Bursitis of left shoulder Dysmenorrhea (03/24/15) Dyspareunia (02/23/15) Fatigue History of depression Hypoxemia per pt. states when she sleeps her o2 drops to the 80's and has to wear 2L O2 at night Light tobacco smoker Lipoma of extremity Menorrhagia (02/23/15) 7-10d menses Pain in left shoulder PTSD (post-traumatic stress disorder) Per pt. states no issues currently Raynauds syndrome Requires supplemental oxygen per pt. states when she sleeps her O2 drops to the 80's and has to wear 2L O2 at night Surgical History Curettage of endometrium (03/17/15) Dr. Rosenda Mathews Pathologic Diagnosis -Proliferative endometrium with extensive stomal breakdown -Benign fragments of squamous mucosa -No cytologic atypia S/P excision of lipoma left shoulder S/P QUINTEN-BSO Family History Mother Asthma Depression Social History Smoking/Tobacco Use Status: Current every day Tobacco Type: cigarettes Smoking risk assessment performed?: Yes Alcohol Intake: current Alcohol Intake frequency: holidays/special occasions only Drug use: Occasionally Substance use type: marijuana Current gender identity: female Do you feel safe at home: Yes Do you feel safe in your relationship?: Yes Meds Allergies and Home Medications Allergies Allergy/AdvReac Type Severity Reaction Status Date / Time adhesive Allergy Skin Rash Verified 07/05/22 12:41 bupropion AdvReac skin Verified 07/05/22 12:41 crawling Home Medications Medication Instructions Recorded Confirmed Type cholecalciferol (vitamin D3) 25 1,000 unit PO HS 07/01/19 07/06/22 History mcg/drop (1,000 unit/drop) oral drops albuterol sulfate 90 mcg/actuation 2 puff inhalation .Q4-6H PRN 03/01/21 07/06/22 History aerosol inhaler (ProAir HFA) montelukast 10 mg tablet 10 mg PO QPM 03/01/21 07/06/22 History valsartan 80 mg tablet 40 mg PO QHS 03/01/21 07/06/22 History fluticasone propionate 50 2 spray intranasal DAILY #16 grams 03/15/21 07/06/22 Rx mcg/actuation nasal spray,suspension (Flonase Allergy Relief) paroxetine HCl 20 mg tablet (Paxil) 40 mg PO DAILY 07/12/21 07/06/22 History melatonin 10 mg capsule 10 mg PO HS PRN 08/30/21 07/06/22 History budesonide-formoterol HFA 80 2 puff inhalation BID 10/03/21 07/06/22 History mcg-4.5 mcg/actuation aerosol inhaler folic acid 1 mg tablet 1 mg PO DAILY 06/04/22 07/06/22 History loratadine 10 mg tablet (Allergy 10 mg PO DAILY 06/04/22 07/06/22 History Relief (loratadine)) pantoprazole 40 mg tablet,delayed 40 mg PO BID 06/04/22 07/06/22 History release tiotropium bromide 2.5 2 puff inhalation DAILY 06/04/22 07/06/22 History mcg/actuation mist for inhalation (Spiriva Respimat) vitamin B complex (B 1 tab PO DAILY 06/04/22 07/06/22 History Complex-Vitamin B12 tablet) Exam Resp Effort & Inspection: normal respiratory effort and able to speak in complete sentences Auscultation: clear to auscultation bilaterally Cardio Rate: regular rate Rhythm: regular rhythm Heart Sounds: S1 normal and S2 normal GI Palpation: soft, no guarding and no hernias
--- NOTE | 2022-07-05 20:52 | PDOC.DSDIS_ITS ---
Date of service: 07/06/22 Time of Service: 12:00 Discharge Plan Disposition Patient Disposition: Home Condition: Good Discharge Details Reason For Visit: Cholecystectomy Attending Provider: Jori Cherry Primary Care Provider: Carol Randle Home Meds and New Rx's Prescriptions: New tramadol 100 mg tablet 100 mg PO BID PRN (Reason: pain) Qty: 10 0RF Rx Instructions: Take 1 tablet by mouth up to every 12 hours if needed for severe pain. Do not drive while taking this medication. This medication can be addictive, so please use it with care Continued montelukast 10 mg tablet 10 mg PO QPM valsartan 80 mg tablet 40 mg PO QHS albuterol sulfate [ProAir HFA] 90 mcg/actuation HFA aerosol inhaler 2 puff inhalation .Q4-6H PRN fluticasone propionate [Flonase Allergy Relief] 50 mcg/actuation spray,suspension 2 spray intranasal DAILY Qty: 16 12RF Hold Instructions: Resume on 11/13/21. Rx Instructions: administer into each nostril paroxetine HCl [Paxil] 20 mg tablet 40 mg PO DAILY melatonin 10 mg capsule 10 mg PO HS PRN pantoprazole 40 mg tablet,delayed release (DR/EC) 40 mg PO BID vitamin B complex [B Complex-Vitamin B12] Tablet 1 tab PO DAILY folic acid 1 mg tablet 1 mg PO DAILY loratadine [Allergy Relief (loratadine)] 10 mg tablet 10 mg PO DAILY Spiriva Respimat 2.5 mcg/actuation mist 2 puff inhalation DAILY cholecalciferol (vitamin D3) 1,000 unit/drop drops 1,000 unit PO HS Label Comments: pt med list currently says vitamin D 1000 units oral tablet 1 daily. budesonide-formoterol 80-4.5 mcg/actuation HFA aerosol inhaler 2 puff inhalation BID Discharge Instructions Instructions: Laparoscopic Cholecystectomy (GEN) Additional Instructions: 1. Resume all of your medications. 2. Okay to use tylenol and ibuprofen over the counter as needed. Use tramadol as needed for severe pain. 3. Okay to use a heating pad or cold packs as needed for pain. 4. Leave bandage in place for 24 hours, then remove. 5. Shower with warm soapy water. Pat dry. Use a bandaid if needed to protect your clothing. 6. No soaking or tub baths until I see you in the office. 7. No heavy lifting until I see you in the office. 8.Call the office (or go directly to the emergency room after hours) if you notice any of the following: Develop chills (warm to touch), or if you have a thermometer and your temperature is above 101 Difficulty breathing or difficultly swallowing Persistent vomiting Any bleeding ? exceeding one tablespoon 6. Call your physician if the site where your intravenous was started becomes red, swollen, painful, and warm to touch. Referrals: Jori Cherry MD [ [facility] STAFF PHYSICIAN] - Activity:: no heavy lifting Remove Dressings/Wound Care:: 24 hours Shower/Bathe:: 24 hours Diet:: As Tolerated Discharge Orders Discharge Orders: Discharge Order (Routine); Ordered 07/05/22 Ordered By: Jori Cherry DS: Diagnosis Discharge Diagnosis (1) Biliary dyskinesia: Status: Acute Asessment and Plan: Milagros, we were able to remove your gallbladder with a laparoscopic approach today. Everything went very smoothly. Follow the discharge instructions attached here, and we look forward to seeing you in the office.
--- NOTE | 2022-07-05 20:55 | ROE_ITS ---
Date of service: 07/06/22 Time of Service: 12:04 Operative Note Operative Note DATE OF PROCEDURE: 07/06/22 PRE-OP DIAGNOSIS: Biliary dyskinesia POST-OP DIAGNOSIS: same PROCEDURE: Laparoscopic cholecystectomy SURGEON: Jori Cherry PATIENT FINANCIAL COUNSELOR: Teresa Rolon ANESTHESIA TYPE: Local By Surgeon and General LMA/ETT Refer to Anesthesia Record ESTIMATED BLOOD LOSS: 30 PATHOLOGY: other (Gallbladder) COMPLICATIONS: None Patient was transported to: PACU Patient's condition: stable Indications: Milagros is a 42-year-old woman with biliary dyskinesia, and a measured gallbladder ejection fraction of 37% Procedure Description: After satisfactory induction of general anesthesia, I prepped and draped the abdomen in usual fashion. Next, I began with a periumbilical incision. I dissected down to the fascia and elevated it with Karey clamps. I incised it sharply. Next, I passed a 12 mm operating port in the umbilical site. I secured it to the fascia with 0 Vicryl stitches. I then insufflated the peritoneal cavity. Next I inserted a 5 mm 30 degree scope and examined the u nderlying viscera. There was no evidence of injury created upon entry. I then placed the patient in some reverse Trendelenburg and left side down positioning. Then, with the assistance of the laparoscope, I used local anesthetic to anesthetize the midepigastric and 2 right upper quadrant port sites. Under the vision of the laparoscope, I passed 3 more 5 mm ports. I then grasped the gallbladder fundus and elevated cephalad. I began by dissecting the gallbladder infundibulum. I worked in a lateral to medial fashion. Once I skeletonized the cystic duct and cystic artery, with a satisfactory critical view of safety, I doubly clipped and divided them. I then used electrocautery to dissect the gallbladder off the gallbladder fossa. Around the midportion of the gallbladder, I did spill some bile. This was easily controlled with a grasper. I passed the gallbladder into an Endo Catch bag and removed it by way of the umbilical site. I examined the surgical field. It was hemostatic. I irrigated the surgical site, and evacuated the effluent until it ran clear. I then removed the 5 mm ports under the vision of the laparoscope. Finally, I removed the umbilical port site and closed the fascia with Vicryl stitches. Sites were irrigated, and the skin was closed with subcuticular stitches. Bandages were applied, patient was awakened from anesthesia, and transferred to the recovery unit.
[2022-07-06] VITALS (10 sets, daily range): BP systolic 124–142; BP diastolic 81–91; PULSE 74–90; RESP 11–31; TEMP 36.3–36.5; O2SAT 93–97; BMI 32.5
[2022-07-06] MEDS: Gabapentin 300 MG CAP 600 MG PO (09:34)
[2022-07-06] MEDS: Acetaminophen 500 MG TAB 1000 MG PO (09:36)
[2022-07-06] MEDS: Lactated Ringers 1,000 ML 80 ML IV (09:52)
[2022-07-06] MEDS: ceFAZolin 2 GM/50 ML BAG IVPB (10:51)
[2022-07-06] MEDS: Bupivacaine 0.25% Pres-Free 30 ML VIAL (11:11)
--- NOTE | 2022-07-06 11:54 | GB_PTH ---
PATIENT: Milagros Maher LOC: [facility] U#:[id number] AGE/SX: 42/F ROOM: RE07/06/[address]: Jori Cherry MD : 1980 BED: DIS: 07/06/2022 SPEC #: [id number] RECD: 07/06/22 12:29 STATUS: VIOLETA REQ #: [id number] KENISHA: 07/06/22 11:[address]: Jori Cherry DEPT: Surgical Specimen RECD BY: Maria Dolores Constantino ENTERED: 07/06/22 12:29 SP TYPE: GB OTHR DR: Carol Randle Tissues: 1 - GALLBLADDER Procedures: GROSS AND MICRO LEVEL 3 Comments: [id number]
[2022-07-06] MEDS: HYDROmorphone 2 MG/ML SYR IVP ×2 (12:50→13:10)
--- NOTE | 2022-07-06 12:59 | W.ANESPOSTOP ---
Postoperative Evaluation Date, Time and Location Date Performed: 07/06/22 Time Performed: 12:59 Patient Location: PACU Vital Signs Most Recent Imported Vital Signs: Most Recent Vital Signs Temp Pulse Resp BP Pulse Ox 36.4 C L 78 11 L 137/85 96 07/06/22 12:52 07/06/22 12:52 07/06/22 12:52 07/06/22 12:52 07/06/22 12:52 Pain Score Most Recent Pain Score: Most Recent Pain Score Pain Level 5 07/06/22 12:52 Assessment Mental Status: Arousable with meaningful communication Airway and Respiratory Function: Patent airway with normal (patient baseline) respiratory exam Cardiovascular Function: Hemodynamically Stable Hydration Status: Adequately Hydrated Nausea & Vomiting: No Nausea or Vomiting Pain: Pain is Moderate or Severe Postoperative Pain Management: Pain being addressed with medication Peripheral Nerve Block: Patient did not receive a nerve block
== END 2022-07-06 14:45 | disposition home or self-care (01) ==
PROVIDERS: PCP Nurse Practitioner Family; Visit Provider Surgery
PROC: 0FT44ZZ Resection of Gallbladder, Percutaneous Endoscopic Approach (ICD-10-PCS; CPT 47562; principal; 2022-07-06 10:30)
DX: K81.1 Chronic cholecystitis (principal)
CPT/HCPCS: 47562; 88304; J0690; J1100; J1170; J1885; J2405; J2704; J3475

== ENCOUNTER 2022-08-28 02:21 | Outpatient (CLI) | payer MEDICAID, SELFPAY ==
--- NOTE | 2022-08-28 | DI.MAMMO_ITS ---
Exam(s) MAMMO SCREENING EXAM: MAMMO SCREENING CLINICAL HISTORY: SCREENING, Z12.31, [facility], Z00.00. TECHNIQUE: Bilateral full field digital CC and MLO mammographic images were obtained with 3D tomosyn thesis and utilizing computer aided detection (CAD). COMPARISON: Baseline FINDINGS: In the right breast there is a small noncalcified nodular density lateral of center measuring 5 x 4 m illimeters located approximately 5 cm in from the nipple. Spot compression view recommended. No significant focal findings in the opposite-left breast. No significant architectural distortion or skin thickening-traction. IMPRESSION: 1. No radiographic evidence of malignancy in left breast. 2. Right breast small nodule as described above. Spot compression view and ultrasound recommended. BI-RADS Category 0 - Assessment Incomplete: Need additional imaging evaluation Breast Density - Category B - Scattered areas of fibroglandular density Breast density Category C or D implies that the patient has dense breast tissue. Dense breast tissue can make it harder to find cancer on a mammogram. Dense breast tissue is also associated with an incr eased risk of breast cancer. This information about the result of the mammogram report was provided to the patient to raise their awareness. Use this report when you speak with the patient about their risks for breast cancer, which includes their family history. At that time, you may recommend additional screening tests (Ultrasoun d or MRI) as these tests may add significant information. A negative radiographic report should not delay biopsy if a dominant or clinically suspicious mass is present. Up to ten percent of cancers are not identified on mammography. A negative report may reinforce clinical impression. Adenosis and dense breasts may obscure an underlying neoplasm. False positive reports average 6 to 10%. Patient will receive a letter notifying them of these results.
== END 2022-08-28 02:41 ==
LOC: DI 02:21
PROVIDERS: PCP Nurse Practitioner Family; Visit Provider Family Medicine
DX: Z12.31 Encounter for screening mammogram for malignant neoplasm of breast (principal); R92.8 Other abnormal and inconclusive findings on diagnostic imaging of breast
CPT/HCPCS: 77063; 77067

== ENCOUNTER 2022-09-04 01:09 | Outpatient (CLI) | payer MEDICAID, SELFPAY ==
--- NOTE | 2022-09-04 14:00 | DI.MAMMO_ITS ---
Exam(s) MG MAMMO SCREEN CALL BACK UNI US BREAST RT LIMITED EXAM: MG MAMMO SCREEN CALL BACK UNI CLINICAL HISTORY: 5 X 4 MM NONCALCIFIED NODULAR DENSITY LATERAL OF CENTER,RT,5 CM FROM NIPPLE. TECHNIQUE: Craniocaudal and mediolateral oblique spot compression digital Mammography views of the r ightbreast with Tomosynthesis and right breast ultrasound. COMPARISON: US US BREAST RT LIMITED from 09/04/2022 FINDINGS: Mammography/Tomosynthesis: Masses/Architectural Distortion: Persistent circumscribed nodule adjacent to a vessel in the upper ou ter quadrant anterior tissue. The findings are typical of an intramammary lymph node. Microcalcifictions: No suspicious pleomorphic-type are seen. Skin Thickening/Nipple Retraction: None. Right breast US: Echotexture: Normal appearance of the glandular tissue. Shadowing: No suspicious foci. Cyst: 5 millimeters cyst 10 o'clock position 1 cm from nipple. 5 x 3 millimeters cyst 9 o'clock posi tion 3 cm from the nipple. Solid lesions: 6 x 5 x 5 millimeter circumscribed hypoechoic lesion 10 o'clock position 3 cm from the nipple. Ductal dilation: None. IMPRESSION: 1. No evidence of malignancy is noted. 2. Six-month follow-up right mammogram and ultrasound recommended. 3. The findings were discussed with the patient on the date of the examination. BI-RADS Category 3 - 6 month - Probably Benign Finding: Recommend follow-up mammography in 6 months Breast Density - Category B - Scattered areas of fibroglandular density A negative radiographic report should not delay biopsy if a dominant or clinically suspicious mass is present. Up to ten percent of cancers are not identified on mammography. A negative report may reinforce clinical impression. Adenosis and dense breasts may obscure an underlying neoplasm. False positive reports average 6 to 10%. Patient will receive a letter notifying them of these results.
== END 2022-09-04 01:29 ==
LOC: DI 01:09
PROVIDERS: PCP Nurse Practitioner Family; Visit Provider Family Medicine
DX: Z12.31 Encounter for screening mammogram for malignant neoplasm of breast (principal); R92.8 Other abnormal and inconclusive findings on diagnostic imaging of breast; N63.11 Unspecified lump in the right breast, upper outer quadrant; N60.11 Diffuse cystic mastopathy of right breast
CPT/HCPCS: 76642; 77063; 77067

== ENCOUNTER 2022-09-21 00:37 | Outpatient (CLI) | payer MEDICAID, SELFPAY ==
--- NOTE | 2022-09-21 13:54 | DI.DEXA_ITS ---
Exam(s) XR DEXA BONE DENSITY W/WO MARY EXAM: XR DEXA BONE DENSITY W/WO MARY CLINICAL HISTORY: [facility], Z00.00, S/P QUINTEN/BSO, Z90.710 TECHNIQUE: [employer] Horizon C densitometer analysis of left hip, lumbar spine and left forearm. COMPARISON: CR XR humerus LT from 09/18/2018 FINDINGS: Lateral view of the thoracic and lumbar spine shows no evidence of compression fractures. Bone mineral density measurements of the lumbar spine correspond to a total T-score of -2.1, in the osteopenic range. Bone mineral density measurements of the left hip correspond to a total T-score of -0.1. The femora l neck T-score is -0.4, in the normal range.. The left forearm bone mineral density measurements correspond to a T-score of the distal 3rd of -0.2 , in the normal range.. IMPRESSION: Normal bone mineral density of the left hip and left forearm. Osteopenia of the lumbar spine.
== END 2022-09-21 00:57 ==
LOC: DI 00:38
PROVIDERS: PCP Nurse Practitioner Family; Visit Provider Family Medicine
DX: M85.88 Other specified disorders of bone density and structure, other site (principal); Z90.710 Acquired absence of both cervix and uterus
CPT/HCPCS: 77080

== ENCOUNTER 2022-09-25 03:13 | Outpatient (CLI) | payer MEDICAID, SELFPAY ==
[2022-09-25 12:58] LABS: Anion Gap 8.1 mmol/L (3-11); BUN 9 mg/dL (7-18); CO2 27.9 mmol/L (21.0-32.0); CREATININE 1.1 mg/dL (0.55-1.02); Calcium 9.5 mg/dL (8.5-10.1); Chloride 106 mmol/L (98-107); Estimated GFR 65.14 (mL/min/1.73m2); Glucose 96 mg/dL (74-106); Potassium 3.8 mmol/L (3.5-5.1); Sodium 142 mmol/L (136-145); TSH (W/Ref FT4) 2.36 uIU/mL (0.36-3.74)
[2022-09-25 13:23] LABS: Vitamin D 25 Total 38.5 ng/mL (30-100)
== END 2022-09-25 03:14 | disposition home or self-care (01) ==
LOC: LOS 03:13
PROVIDERS: PCP Nurse Practitioner Family; Visit Provider Internal Medicine
DX: E66.01 Morbid (severe) obesity due to excess calories (principal); Z68.33 Body mass index [BMI] 33.0-33.9, adult
CPT/HCPCS: 36415; 80048; 82306; 84443

== ENCOUNTER 2022-12-24 17:43 | Outpatient (REF) | payer MEDICAID, SELFPAY ==
[2022-12-24 21:09] LABS: Mono Screening Negative (Negative)
== END 2022-12-24 17:44 | disposition home or self-care (01) ==
LOC: NCHCN 17:43
PROVIDERS: PCP Nurse Practitioner Family; Visit Provider Family Medicine
DX: J06.9 Acute upper respiratory infection, unspecified (principal)
CPT/HCPCS: 86308; 87070

== ENCOUNTER 2023-03-09 14:27 | Emergency (ER) | payer MEDICAID, SELFPAY ==
[2023-03-09 14:28] VITALS: BP 140/110; PULSE 103; RESP 20; O2SAT 97
--- NOTE | 2023-03-09 15:42 | DI.RAD_ITS ---
Exam(s) XR ANKLE RT COMPLETE XR FOOT RT COMPLETE EXAM: XR ANKLE RT COMPLETE CLINICAL HISTORY: pain s/p fall. TECHNIQUE: 2D digital imaging was performed. Three views. COMPARISON: CR,XR XR FOOT RT COMPLETE from 03/09/2023 FINDINGS: BONES: Small avulsion fracture noted from the lateral aspect of the calcaneus with step mild separati on. Tiny bony fragment seen dorsal to the navicular is of indeterminate age. Enthesophyte at Achill es insertion. No bony destructive lesion is seen. JOINTS: The ankle mortise is normally aligned. Mild tibiotalar joint space narrowing. SOFT TISSUE: Swelling lateral to calcaneus. IMPRESSION: Avulsion fracture at the lateral aspect of the distal calcaneus. DATA REPOSITORY: RADIATION DOSE DELIVERED:
--- NOTE | 2023-03-09 16:41 | DI.VRAD_ITS ---
PROCEDURE INFORMATION: Exam: XR Right Ankle Exam date and time: 03/09/2023 3:32 PM Age: 42 years old Clinical indication: Injury or trauma; Blunt trauma; Ankle; Right; Injury date: 03/09/23; Patient HX: Pain S/P fall TECHNIQUE: Imaging protocol: Radiologic exam of the right ankle. Views: 3 or more views. COMPARISON: CR XR FOOT RT COMPLETE 09/03/2023 15:29 FINDINGS: Bones/joints: Small avulsion fracture of the lateral aspect of the distal calcaneus. Posterior calcaneal spur. Soft tissues: Soft tissue swelling lateral aspect of the foot and ankle. IMPRESSION: Avulsion fracture of the lateral aspect of the distal calcaneus with associated soft tissue swelling. Dictated and Authenticated by: Nona Boyle MD. Ordering:LATASHA Ochoa MD
--- NOTE | 2023-03-09 16:46 | DI.VRAD_ITS ---
PROCEDURE INFORMATION: Exam: XR Right Foot Exam date and time: 03/09/2023 3:29 PM Age: 42 years old Clinical indication: Injury or trauma; Blunt trauma; Foot; Right; Injury date: 03/09/23; Patient HX: Pain S/P fall TECHNIQUE: Imaging protocol: Radiologic exam of the right foot. Views: 3 or more views. COMPARISON: US LOWER EXTREMITY VENOUS RT 13/04/2022 10:31 FINDINGS: Bones/joints: Soft tissue swelling of the lateral aspect of the ankle and foot. Small avulsion fracture of the distal lateral aspect of the calcaneus. Posterior calcaneal spur. Small bony fragment along the superior aspect of the navicular without soft tissue swelling may represent an age indeterminate small avulsion fracture. Soft tissues: See Bones/joints finding. IMPRESSION: Avulsion fracture of the lateral aspect of the distal calcaneus. Soft tissue swelling. Dictated and Authenticated by: Nona Boyle MD. Ordering:LATASHA Ochoa MD
--- NOTE | 2023-03-09 17:07 | W.ED.GENAD ---
Discharge Plan Disposition Patient Disposition: Home Condition: Stable Discharge Details Clinical Impression: Calcaneus fracture, right Primary Care Provider: Carol Randle ED Provider: Don Paez Home Meds and New Rx's Prescriptions: Continued montelukast 10 mg tablet 10 mg PO QPM valsartan 80 mg tablet 40 mg PO QHS Patient Comments: no longer taking 03/09/23 CT albuterol sulfate [ProAir HFA] 90 mcg/actuation HFA aerosol inhaler 2 puff inhalation .Q4-6H PRN fluticasone propionate [Flonase Allergy Relief] 50 mcg/actuation spray,suspension 2 spray intranasal DAILY Qty: 16 12RF Hold Instructions: Resume on 11/13/21. Rx Instructions: administer into each nostril paroxetine HCl [Paxil] 20 mg tablet 20 mg PO DAILY melatonin 10 mg capsule 10 mg PO HS PRN Patient Comments: No longer taking 03/09/23 CT pantoprazole 40 mg tablet,delayed release (DR/EC) 40 mg PO BID vitamin B complex [B Complex-Vitamin B12] Tablet 1 tab PO DAILY folic acid 1 mg tablet 1 mg PO DAILY loratadine [Allergy Relief (loratadine)] 10 mg tablet 10 mg PO DAILY Spiriva Respimat 2.5 mcg/actuation mist 2 puff inhalation DAILY cholecalciferol (vitamin D3) 1,000 unit/drop drops 1,000 unit PO HS Patient Comments: Dosing changed per patient 03/09/23 budesonide-formoterol 80-4.5 mcg/actuation HFA aerosol inhaler 2 puff inhalation BID Patient Comments: dosing change per patient 03/09/23 CT budesonide-formoterol [Symbicort] 160-4.5 mcg/actuation Hfa Aerosol Inhaler 2 puff INHALATION BID cholecalciferol (vitamin D3) [Vitamin D3] 50 mcg (2,000 unit) Capsule 50 mcg PO DAILY Discharge Instructions Additional Instructions: You have a small avulsion fracture in your ankle call orthopedics on Saturday to arrange for follow up you can take 1000mg tylenol and 600mg ibuprofen every 6 hours for pain as needed if you feel more ill or have severe worsening pain return to the emergency department Referrals: Ted Horn MD [ [facility] STAFF PHYSICIAN] - Medical Decision Making 42 yo female states several dogs ran into her right ankle causing her to fall and also hit her right ankle on the ground, no head trauma or loc. She has pain over the lateral malleolus and lateral calcaneus, no pain in the proximal or mid tibia, intact sensation and pulses, full rom. She had xrays done prior to my exam showing an avulsion fracture of the lateral distal calcaneus. I put her in a posterior ankle splint, will refer to ortho and crutches given, return precautions given Differential Diagnosis Differential Diagnosis: fracture sprain strain Imaging Data Radiologic Study: Attestation: I personally reviewed and interpreted this imaging study as follows: Imaging: X-Ray Radiologist's impression: PROCEDURE INFORMATION: Exam: XR Right Ankle Exam date and time: 03/09/2023 3:32 PM Age: 42 years old Clinical indication: Injury or trauma; Blunt trauma; Ankle; Right; Injury date: 03/09/23; Patient HX: Pain S/P fall TECHNIQUE: Imaging protocol: Radiologic exam of the right ankle. Views: 3 or more views. COMPARISON: CR XR FOOT RT COMPLETE 09/03/2023 15:29 FINDINGS: Bones/joints: Small avulsion fracture of the lateral aspect of the distal calcaneus. Posterior calcaneal spur. Soft tissues: Soft tissue swelling lateral aspect of the foot and ankle. IMPRESSION: Avulsion fracture of the lateral aspect of the distal calcaneus with associated soft tissue swelling Radiologic Study #2: Attestation: I personally reviewed and interpreted this imaging study as follows: Imaging: X-Ray Radiologist's impression: PROCEDURE INFORMATION: Exam: XR Right Ankle Exam date and time: 03/09/2023 3:32 PM Age: 42 years old Clinical indication: Injury or trauma; Blunt trauma; Ankle; Right; Injury date: 03/09/23; Patient HX: Pain S/P fall TECHNIQUE: Imaging protocol: Radiologic exam of the right ankle. Views: 3 or more views. COMPARISON: CR XR FOOT RT COMPLETE 09/03/2023 15:29 FINDINGS: Bones/joints: Small avulsion fracture of the lateral aspect of the distal calcaneus. Posterior calcaneal spur. Soft tissues: Soft tissue swelling lateral aspect of the foot and ankle. IMPRESSION: Avulsion fracture of the lateral aspect of the distal calcaneus with associated soft tissue swelling HPI General Mode of arrival: ambulatory. Date/Time Provider Initiated Documentation: 03/09/23 14:34. Limitations to Documentation: no limitations. Information obtained by: patient. History of Present Illness 42 year old F presents to the emergency department with the chief complaint of right ankle/foot pain, described as moderate, Quality is described as aching, Patient reports no radiation. Patient started experiencing this hour(s) (3) and it has been constant. Rest improves symptom(s), Movement worsens symptoms . Patient notes no other symptoms.. Patient did receive the following treatments prior to arrival, none Related Data Home Medications Medication Instructions Recorded Confirmed cholecalciferol (vitamin D3) 25 1,000 unit PO HS 07/01/19 07/16/22 mcg/drop (1,000 unit/drop) oral drops albuterol sulfate 90 mcg/actuation 2 puff inhalation .Q4-6H PRN 03/01/21 03/09/23 aerosol inhaler (ProAir HFA) montelukast 10 mg tablet 10 mg PO QPM 03/01/21 03/09/23 valsartan 80 mg tablet 40 mg PO QHS 03/01/21 07/16/22 fluticasone propionate 50 2 spray intranasal DAILY #16 grams 03/15/21 03/09/23 mcg/actuation nasal spray,suspension (Flonase Allergy Relief) paroxetine HCl 20 mg tablet (Paxil) 20 mg PO DAILY 07/12/21 03/09/23 melatonin 10 mg capsule 10 mg PO HS PRN 08/30/21 07/16/22 budesonide-formoterol HFA 80 2 puff inhalation BID 10/03/21 07/16/22 mcg-4.5 mcg/actuation aerosol inhaler folic acid 1 mg tablet 1 mg PO DAILY 06/04/22 03/09/23 loratadine 10 mg tablet (Allergy 10 mg PO DAILY 06/04/22 03/09/23 Relief (loratadine)) pantoprazole 40 mg tablet,delayed 40 mg PO BID 06/04/22 03/09/23 release tiotropium bromide 2.5 2 puff inhalation DAILY 06/04/22 03/09/23 mcg/actuation mist for inhalation (Spiriva Respimat) vitamin B complex (B 1 tab PO DAILY 06/04/22 03/09/23 Complex-Vitamin B12 tablet) budesonide-formoterol HFA 160 2 puff inhalation BID 03/09/23 03/09/23 mcg-4.5 mcg/actuation aerosol inhaler (Symbicort) cholecalciferol (vitamin D3) 50 50 mcg PO DAILY 03/09/23 03/09/23 mcg (2,000 unit) capsule (Vitamin D3) Previous Rx's Medication Instructions Recorded fluticasone propionate 50 2 spray intranasal DAILY #16 grams 03/15/21 mcg/actuation nasal spray,suspension (Flonase Allergy Relief) Allergies Allergy/AdvReac Type Severity Reaction Status Date / Time adhesive Allergy Skin Rash Verified 07/16/22 14:11 bupropion AdvReac skin Verified 07/16/22 14:11 crawling General Stated Complaint: Orthopedic DIANNA: 4 Review of Systems All systems reviewed & are unremarkable except as noted in HPI and below Constitutional Constitutional: Denies chills, Denies fever(s) and Denies weakness Cardiovascular Cardiovascular: Denies chest pain and Denies dyspnea Respiratory Respiratory: Denies cough and Denies dyspnea Gastrointestinal Gastrointestinal: Denies abdominal pain, Denies nausea and Denies vomiting Musculoskeletal Musculoskeletal: Denies joint swelling Neurologic Neurologic: Denies weakness PFSH All Active Problems (Updated 03/09/23 @ 17:23 by Don Paez MD) Calcaneus fracture, right (Acute) Patellofemoral syndrome (Acute) Depression (Acute) Anxiety (Acute) BMI 29.0-29.9,adult (Acute) Kidney stones (Acute) Hx of endometriosis (Acute) History of asthma (Acute) Tendinitis of long head of biceps brachii of left shoulder (Acute ~07/2019) Headache, unspecified (Acute) Jaw pain (Acute) Sinusitis, chronic (Acute) Anticipatory grieving (Acute) Plantar fasciitis, bilateral (Acute) Lumbar radiculopathy (Acute) Benign essential HTN (Acute) Tobacco smoker within last 12 months (Acute) Chronic rhinitis (Acute) Mucocele of maxillary sinus (Acute) COVID-19 (Acute) Asthma (Chronic) Medical History Biceps tendonitis on left Bursitis of left shoulder Dysmenorrhea (03/24/15) Dyspareunia (02/23/15) Fatigue History of depression Hypoxemia per pt. states when she sleeps her o2 drops to the 80's and has to wear 2L O2 at night Light tobacco smoker Lipoma of extremity Menorrhagia (02/23/15) 7-10d menses Pain in left shoulder PTSD (post-traumatic stress disorder) Per pt. states no issues currently Raynauds syndrome Requires supplemental oxygen per pt. states when she sleeps her O2 drops to the 80's and has to wear 2L O2 at night Surgical History Curettage of endometrium (03/17/15) Dr. Rosenda Mathews Pathologic Diagnosis -Proliferative endometrium with extensive stomal breakdown -Benign fragments of squamous mucosa -No cytologic atypia S/P excision of lipoma left shoulder S/P QUINTEN-BSO Family History Mother Asthma Depression Social History Smoking/Tobacco Use Status: Current every day Tobacco Type: cigarettes Smoking risk assessment performed?: Yes Alcohol Intake: current Alcohol Intake frequency: holidays/special occasions only Substance use type: does not use Current gender identity: female Do you feel safe at home: Yes Do you feel safe in your relationship?: Yes Exam Const General: no acute distress Orientation: alert HENMT Head: normal to inspection Ears: external ears normal General nose exam: external nose normal Mouth: moist mucous membranes Eyes General: appearance normal, both eyes and all related structures Neck Neck: normal visual inspection Resp Effort & Inspection: normal respiratory effort and able to speak in complete sentences Cardio Rate: regular rate Skin General skin exam: no rashes or lesions noted Neuro General: patient alert and patient oriented x3 Extrem General: capillary refill normal Psych Mental Status: mental status grossly normal Course Vital Signs Vital signs: Vital Signs Pulse 103 H 03/09/23 14:28 Respiratory Rate 03/09/23 14:28 Blood Pressure 140/110 H 03/09/23 14:28 Pulse Oximetry 97 03/09/23 14:28 Pulse 103 H 03/09/23 14:28 Respiratory Rate 03/09/23 14:28 Respiratory Effort Normal 03/09/23 14:34 Blood Pressure 140/110 H 03/09/23 14:28 Blood Pressure Position Sitting 03/09/23 14:28 Pulse Oximetry 97 03/09/23 14:28 Oxygen Delivery Method Room Air 03/09/23 14:28 Oxygen Flow Rate 0 03/09/23 14:28 Pain Level 3 03/09/23 14:34 Comment movement and bearing weight increased pain 03/09/23 14:28
[2023-03-09 17:41] VITALS: BP 129/88; PULSE 64
--- NOTE | 2023-03-10 16:09 | NUR.NOTE ---
Accessed pt chart to determine diagnosis for [facility] billing. Nursing Note:
== END 2023-03-09 17:42 | disposition home or self-care (01) ==
PROVIDERS: Emergency Provider Emergency Medicine; PCP Nurse Practitioner Family
DX: S92.001A Unspecified fracture of right calcaneus, initial encounter for closed fracture (principal); W01.0XXA Fall on same level from slipping, tripping and stumbling without subsequent striking against object, initial encounter; Y93.K9 Activity, other involving animal care; Y99.9 Unspecified external cause status; F17.210 Nicotine dependence, cigarettes, uncomplicated
CPT/HCPCS: 29515; 99283; 73610; 73630

== ENCOUNTER 2023-03-18 15:44 | Outpatient (CLI) | payer MEDICAID, SELFPAY ==
--- NOTE | 2023-03-18 15:30 | DI.RAD_ITS ---
Exam(s) XR ANKLE RT COMPLETE EXAM: XR ANKLE RT COMPLETE CLINICAL HISTORY: F/U FRACTURE. TECHNIQUE: 2D digital imaging was performed. COMPARISON: CR,XR XR ANKLE RT COMPLETE from 03/09/2023 FINDINGS: 3 views There is an avulsion fracture off the distal lateral aspect of the calcaneus or cuboid again evident. No additional fractures identified. Talar dome unremarkable. Mild narrowing of the lateral aspect of the tibiotalar joint noted. No degenerative subarticular [id number] nor osteochondral defects evide nt in the talar dome. IMPRESSION: Avulsion fracture distal lateral aspect of the calcaneus again noted. DATA REPOSITORY: RADIATION DOSE DELIVERED:
== END 2023-03-18 15:45 | disposition home or self-care (01) ==
LOC: DIORS 15:44
PROVIDERS: PCP Family Medicine; Visit Provider Student in an Organized Health Care Education/Training Program
DX: S92.031D Displaced avulsion fracture of tuberosity of right calcaneus, subsequent encounter for fracture with routine healing (principal); X58.XXXD Exposure to other specified factors, subsequent encounter
CPT/HCPCS: 73610

== ENCOUNTER 2023-04-09 02:16 | Outpatient (CLI) | payer SELFPAY ==
[2023-04-09 17:59] LABS: Anion Gap 10.5 mmol/L (3-11); BUN 13 mg/dL (7-18); CO2 25.5 mmol/L (21.0-32.0); Calcium 9.8 mg/dL (8.5-10.1); Chloride 105 mmol/L (98-107); Estimated GFR 73.04 (mL/min/1.73m2); Glucose 87 mg/dL (74-106); Potassium 3.9 mmol/L (3.5-5.1); Sodium 141 mmol/L (136-145); TSH 1.88 uIU/mL (0.36-3.74)
[2023-04-09 18:21] LABS: Vitamin D 25 Total 43.6 ng/mL (30-100)
[2023-04-11 11:50] LABS: TB Interpretation Negative (Negative); TB2 Ag minus Nil 0.01 IU/mL
== END 2023-04-09 02:17 | disposition home or self-care (01) ==
LOC: LBO 02:17
PROVIDERS: Internal Medicine; PCP Family Medicine; Visit Provider Nurse Practitioner Family
DX: Z02.1 Encounter for pre-employment examination (principal); E66.9 Obesity, unspecified
CPT/HCPCS: 36415; 80048; 82306; 84443; 86480

== ENCOUNTER → 2023-04-19 00:06 | Outpatient (CLI) | payer MEDICAID, SELFPAY ==
--- NOTE | 2023-04-19 | DI.US_ITS ---
Exam(s) MG MAMMO DIAGNOSTIC UNI US BREAST RT LIMITED EXAM: MG MAMMO DIAGNOSTIC UNI CLINICAL HISTORY: F/U ABNL MAMMO, R92.8, 6 MO F/U. COMPARISON: MG MG MAMMO SCREENING from 08/28/2022 MG MG MAMMO SCREEN CALL BACK UNI from 09/04/2022 US US BREAST RT LIMITED from 04/19/2023 TECHNIQUE: Craniocaudal and mediolateral oblique Full Field Digital Mammography views of the right breast with Computer Aided Diagnosis followed by Tomosynthesis and right breast ultrasound. FINDINGS: Mammography/Tomosynthesis: Masses/Architectural Distortion: None seen. Stable tiny nodule seen in the lateral right breast. S table 5 millimeter nodule in the central right breast slightly to lateral center. Microcalcifications: No suspicious pleomorphic-type are seen. Skin Thickening/Nipple Retraction: None. Right breast US: Echotexture: Normal appearance of the glandular tissue. Shadowing: No suspicious foci. Cyst: 5 millimeter cyst 10 o'clock position, unchanged. Cyst in the 9 o'clock position has slightly decreased in size, measuring 5 x 2 x 3 cm. Solid lesions: No change in appearance small solid lesion with central fatty hilum consistent with a lymph node, located 10 o'clock position 3 cm from the nipple. Ductal dilation: None. IMPRESSION: 1. No evidence of malignancy is noted. 2. Unless there is more urgent need, follow-up screening mammography is recommended, as per [place] guidelines. BI-RADS Category 2 - Benign Findings Breast Density - Category B - Scattered areas of fibroglandular density A negative radiographic report should not delay biopsy if a dominant or clinically suspicious mass is present. Up to ten percent of cancers are not identified on mammography. A negative report may reinforce clinical impression. Adenosis and dense breasts may obscure an underlying neoplasm. False positive reports average 6 to 10%. Patient will receive a letter notifying them of these results.
== END ==
PROVIDERS: PCP Family Medicine; Visit Provider Family Medicine
DX: R92.8 Other abnormal and inconclusive findings on diagnostic imaging of breast (principal); R92.321 Mammographic fibroglandular density, right breast; N60.11 Diffuse cystic mastopathy of right breast
CPT/HCPCS: 76642; 77061; 77065; G0279

== ENCOUNTER → 2023-04-24 03:05 | Outpatient (CLI) | payer MEDICAID, SELFPAY ==
--- NOTE | 2023-04-24 08:03 | DI.CT_ITS ---
Exam(s) CT CHEST WO EXAM: CT CHEST WO CLINICAL HISTORY: F/U ABNL LUNG FIELD, R91.8,RUL NODULES TECHNIQUE: Imaging Protocol: Axial computed tomography images with coronal and sagittal reformatted images were created and reviewed CONTRAST MATERIAL: Intravenous: Omnipaque 350 Contrast volume:structured data ml. COMPARISON: CT CT CHEST WO from 03/29/2022 FINDINGS: Pulmonary parenchyma: No consolidation. No dominant measurable mass. No change in circumscribed 4 mi llimeter nodule lateral right upper lobe. No change tiny perifissural nodules . Mild linear atelect asis right lower lobe. Tracheobronchial tree: No bronchiectasis or mucous plugging. Mediastinum and Iris: No dominant adenopathy or fluid collection. Pleura: No effusion. No pneumothorax. Heart: The heart is not dilated. No coronary artery calcifications are seen. Aorta: Thoracic aorta non-dilated. Mild atherosclerotic changes. Upper abdomen: Hepatic steatosis. Bones: Degenerative changes in the spine. Soft tissues: Unremarkable. IMPRESSION: Stable tiny pulmonary nodules. . For multiple solid noncalcified nodules smaller than 6 mm in diameter, no routine follow-up is recomm ended (grade 2B; weak recommendation, moderate-quality evidence). (Danuta et al., 2017) RADIATION DOSE DELIVERED: Total DLP DATA REPOSITORY: All CT scans at this facility are submitted to the National Radiology Data Registry (NRDR) Dose Index Registry (DIR) with the [employer] ([employer]). RADIATION OPTIMIZATION: All CT scans at this facility use at least one of these dose optimization te chniques: automated exposure control; mA and/or kV adjustment per patient size (includes targeted exa ms where dose is matched to clinical indication); or iterative reconstruction.
== END ==
PROVIDERS: PCP Family Medicine; Visit Provider Internal Medicine Pulmonary Disease
DX: R91.8 Other nonspecific abnormal finding of lung field (principal)
CPT/HCPCS: 71250

== ENCOUNTER 2023-10-28 08:16 | Emergency (ER) | payer OTHER, MEDICAID, SELFPAY ==
[2023-10-28 08:30] VITALS: BP 152/111; PULSE 94; RESP 18; TEMP 36.9; O2SAT 98
--- NOTE | 2023-10-28 09:12 | W.ED.GENAD ---
Discharge Plan Disposition Patient Disposition: Home Condition: Stable Discharge Details Clinical Impression: Acute low back pain Primary Care Provider: Rosanna Godinez V ED Provider: Phillip Gallardo Home Meds and New Rx's Prescriptions: Continued montelukast 10 mg tablet 10 mg PO QPM albuterol sulfate [ProAir HFA] 90 mcg/actuation HFA aerosol inhaler 2 puff inhalation .Q4-6H PRN fluticasone propionate [Flonase Allergy Relief] 50 mcg/actuation spray,suspension 2 spray intranasal DAILY Qty: 16 12RF Hold Instructions: Resume on 11/13/21. Rx Instructions: administer into each nostril melatonin 10 mg capsule 10 mg PO HS PRN Patient Comments: No longer taking 03/09/23 CT vitamin B complex [B Complex-Vitamin B12] Tablet 1 tab PO DAILY folic acid 1 mg tablet 1 mg PO DAILY loratadine [Allergy Relief (loratadine)] 10 mg tablet 10 mg PO DAILY Spiriva Respimat 2.5 mcg/actuation mist 2 puff inhalation DAILY cholecalciferol (vitamin D3) 1,000 unit/drop drops 1,000 unit PO HS Patient Comments: Dosing changed per patient 03/09/23 budesonide-formoterol [Symbicort] 160-4.5 mcg/actuation Hfa Aerosol Inhaler 2 puff INHALATION BID Discontinued paroxetine HCl [Paxil] 20 mg tablet 20 mg PO DAILY pantoprazole 40 mg tablet,delayed release (DR/EC) 40 mg PO DAILY PRN Discharge Instructions Instructions: Acute Low Back Pain (ED) Additional Instructions: Please take ibuprofen over the counter. Take 600mg by mouth every 6 hours as needed for pain. Use [id number] lidocaine patches. Dose according to label. Please avoid any activities that worsen pain. Please contact your primary care physician to arrange follow-up. Return to the ER immediately for any worsening or new concerning symptoms. Stand Alone Forms: Work Release Referrals: Rosanna Godinez MD [Primary Care Provider] - [facility] General Mode of arrival: ambulatory. Date/Time Provider Initiated Documentation: 10/28/23 08:37. Limitations to Documentation: no limitations. Information obtained by: patient. HPI Narrative: 43-year-old female with history of osteopenia involving her lumbar spine, smoker, presents with chief complaint of back pain. Patient notes she was bending over last night and picking up an object when she felt sudden sharp pain in her mid lumbar spine with radiation into both of her posterior lateral hips and down her legs to her knees. Pain has persisted. No associated paresthesias. No weakness. No bowel or bladder dysfunction. Related Data Home Medications Medication Instructions Recorded Confirmed cholecalciferol (vitamin D3) 25 1,000 unit PO HS 07/01/19 10/28/23 mcg/drop (1,000 unit/drop) oral drops albuterol sulfate 90 mcg/actuation 2 puff inhalation .Q4-6H PRN 03/01/21 10/28/23 aerosol inhaler (ProAir HFA) montelukast 10 mg tablet 10 mg PO QPM 03/01/21 10/28/23 fluticasone propionate 50 2 spray intranasal DAILY #16 grams 03/15/21 10/28/23 mcg/actuation nasal spray,suspension (Flonase Allergy Relief) melatonin 10 mg capsule 10 mg PO HS PRN 08/30/21 10/28/23 folic acid 1 mg tablet 1 mg PO DAILY 06/04/22 10/28/23 loratadine 10 mg tablet (Allergy 10 mg PO DAILY 06/04/22 10/28/23 Relief (loratadine)) tiotropium bromide 2.5 2 puff inhalation DAILY 06/04/22 10/28/23 mcg/actuation mist for inhalation (Spiriva Respimat) vitamin B complex (B 1 tab PO DAILY 06/04/22 10/28/23 Complex-Vitamin B12 tablet) budesonide-formoterol HFA 160 2 puff inhalation BID 03/09/23 10/28/23 mcg-4.5 mcg/actuation aerosol inhaler (Symbicort) Previous Rx's Medication Instructions Recorded fluticasone propionate 50 2 spray intranasal DAILY #16 grams 03/15/21 mcg/actuation nasal spray,suspension (Flonase Allergy Relief) Allergies Allergy/AdvReac Type Severity Reaction Status Date / Time adhesive Allergy Skin Rash Verified 10/28/23 08:47 bupropion AdvReac skin Verified 10/28/23 08:47 crawling General Stated Complaint: Nk/Back Pain DIANNA: 3 Review of Systems All systems reviewed & are unremarkable except as noted in HPI and below Constitutional Constitutional: Denies fever(s) Musculoskeletal Musculoskeletal: Reports as per HPI Exam Const General: cooperative and no acute distress HENMT Head: normocephalic Mouth: moist mucous membranes Eyes Conjunctivae: normal conjunctivae Sclera: normal sclerae Resp Auscultation: clear to auscultation bilaterally, no rales, no rhonchi and no wheezes Cardio Rate: regular rate and not tachycardic Rhythm: regular rhythm GI Palpation: soft, not firm, no guarding, no masses, not rigid and nontender Back/Spine/Pelvis Back: No erythema, No warmth and No ecchymosis Cervical Spine: No cervical spinal tenderness Thoracic/Lumbar Spine: lumbar spinal tenderness and straight leg raise positive (left > right) Skin General skin exam: no rashes or lesions noted Neuro General: patient alert, patient awake and tone normal Motor: strength 5/5 throughout Sensory Exam: no sensory deficits noted Other: No saddle anesthesia Extrem General: no edema Psych Appearance: grossly normal Mental Status: mental status grossly normal Course Vital Signs Vital signs: Vital Signs Temperature 36.9 C 10/28/23 08:30 Pulse 94 H 10/28/23 08:30 Respiratory Rate 18 10/28/23 08:30 Blood Pressure 152/111 H 10/28/23 08:30 Pulse Oximetry 98 10/28/23 08:30 Temperature 36.9 C 10/28/23 08:30 Temperature Source Tympanic 10/28/23 08:30 Pulse 94 H 10/28/23 08:30 Respiratory Rate 18 10/28/23 08:30 Respiratory Effort Normal, Non-Labored 10/28/23 08:49 Blood Pressure 152/111 H 10/28/23 08:30 Blood Pressure Position Left Lateral 10/28/23 08:30 Pulse Oximetry 98 10/28/23 08:30 Oxygen Delivery Method Non-Rebreather 10/28/23 08:30 Oxygen Flow Rate 0 10/28/23 08:30 Pain Level 5 10/28/23 08:30 Comment Ibuprofen last night 10/28/23 08:30 Medical Decision Making 43-year-old female with history of osteopenia of the lumbar spine, smoker, here with lumbar back pain radiating to bilateral hips and down to her knees. Symptoms started yesterday while bending and lifting. Positive straight leg test bilaterally. No saddle anesthesia or paresthesias. No bowel or bladder dysfunction. Suspect disc herniation. Given the osteopenia, consider consider fracture. Plan to obtain CT of the lumbar spine. Will give Toradol IM, lidocaine patch and acetaminophen. 1109 --CT lumbar spine was interpreted by radiology: Normal CT examination of the lumbar spine. Plan for discharge with outpatient follow-up with PCP. Usual customary discharge instructions reviewed. Quality:SDOH Health Related Social Needs: No Data to Display PFSH All Active Problems (Updated 10/28/23 @ 11:10 by Phillip Gallardo MD) Acute low back pain (Acute) Patellofemoral syndrome (Acute) Depression (Acute) Anxiety (Acute) BMI 29.0-29.9,adult (Acute) Kidney stones (Acute) Hx of endometriosis (Acute) History of asthma (Acute) Tendinitis of long head of biceps brachii of left shoulder (Acute ~07/2019) Headache, unspecified (Acute) Jaw pain (Acute) Sinusitis, chronic (Acute) Anticipatory grieving (Acute) Plantar fasciitis, bilateral (Acute) Lumbar radiculopathy (Acute) Benign essential HTN (Acute) Tobacco smoker within last 12 months (Acute) Chronic rhinitis (Acute) Mucocele of maxillary sinus (Acute) COVID-19 (Acute) Asthma (Chronic) Medical History Requires supplemental oxygen per pt. states when she sleeps her O2 drops to the 80's and has to wear 2L O2 at night Hypoxemia per pt. states when she sleeps her o2 drops to the 80's and has to wear 2L O2 at night Lipoma of extremity Bursitis of left shoulder Biceps tendonitis on left Raynauds syndrome PTSD (post-traumatic stress disorder) Per pt. states no issues currently History of depression Light tobacco smoker Fatigue Pain in left shoulder Dysmenorrhea (03/24/15) Dyspareunia (02/23/15) Menorrhagia (02/23/15) 7-10d menses Surgical History S/P excision of lipoma left shoulder S/P QUINTEN-BSO Curettage of endometrium (03/17/15) Dr. Rosenda Mathews Pathologic Diagnosis -Proliferative endometrium with extensive stomal breakdown -Benign fragments of squamous mucosa -No cytologic atypia Family History Mother Asthma Depression Social History Smoking/Tobacco Use Status: Current every day Tobacco Type: cigarettes Smoking risk assessment performed?: Yes Alcohol Intake: current Alcohol Intake frequency: holidays/special occasions only Drug use: Never Substance use type: does not use Current gender identity: female Do you feel safe at home: Yes Do you feel safe in your relationship?: Yes PAWSS Have you Been Recently Intoxicated or Drunk Within the Last 30 days?: No Have you Ever Experienced Previous Episodes of Alcohol Withdrawal?: No Have you ever Experienced Withdrawal Seizures?: No Have you ever Experienced Delirium Tremens(DT)s?: No Have you ever undergone Alcohol Rehabilitation Treatment (i.e, inpt ot outpatient treatment programs)?: No Have you ever Experienced Blackouts?: No Have you ever Combined Alcohol with other Downers within the last 90 days?: No Have you ever Combined Alcohol with any other Substance of Abuse during the last 90 days?: No Positive Blood Alcohol level on Presentation? [PCS.BAL]: No Evidence of Increased Autonomic Activity (i.e. HR>120, tremor, sweating, agitation, nausea)?: No Result: 0
[2023-10-28] MEDS: Ketorolac 30 MG/ML VIAL IM (09:14)
[2023-10-28] MEDS: Lidocaine 5% Patch 1 PATCH TP (09:15)
[2023-10-28] MEDS: Acetaminophen 325 MG TAB 650 MG PO (09:15)
--- NOTE | 2023-10-28 09:38 | DI.CT_ITS ---
Exam(s) CT LUMBAR SPINE WO EXAM: CT LUMBAR SPINE WO CLINICAL HISTORY: pain, started w/ bend last night, b/l radiculopath. TECHNIQUE: Imaging Protocol: Axial computed tomography images with coronal and sagittal reformatted images were created and reviewed COMPARISON: No exams were available for comparison FINDINGS: Bones: The last intervertebral disc space is designated the L5/S1 level for the numbering purpose of this examination. The vertebral body heights are well maintained. Alignment is satisfactory. No fracture is seen. T12-L1: No disc herniations or bulges are present. L1-2: No disc herniations or bulges are present. L2-3: No disc herniations or bulges are present. L3-4: No disc herniations or bulges are present. L4-5: No disc herniations or bulges are present. L5-S1: No disc herniations or bulges are present. The visualized SI joints and sacrum are will maintained. Soft Tissues: The paraspinal soft tissues are unremarkable. IMPRESSION: Normal CT examination of the lumbar spine. RADIATION DOSE DELIVERED: 851.19mGy.cm Total DLP DATA REPOSITORY: All CT scans at this facility are submitted to the National Radiology Data Registry (NRDR) Dose Index Registry (DIR) with the [employer] (A[employer]). RADIATION OPTIMIZATION: All CT scans at this facility use at least one of these dose optimization te chniques: automated exposure control; mA and/or kV adjustment per patient size (includes targeted exa ms where dose is matched to clinical indication); or iterative reconstruction.
[2023-10-28 10:02] VITALS: BP 133/102; PULSE 73; RESP 16; O2SAT 98
--- NOTE | 2023-10-28 10:05 | NUR.NOTE ---
This nurse assumes care from AM RN. PT states that her pain is better, 3/10 down from a 5/10. VS taken and entered. See charting. Call ivey is in reach. Nursing Note:
== END 2023-10-28 11:19 | disposition home or self-care (01) ==
PROVIDERS: Emergency Provider Student in an Organized Health Care Education/Training Program; PCP Family Medicine
DX: M54.50 Low back pain, unspecified (principal); X50.0XXA Overexertion from strenuous movement or load, initial encounter
CPT/HCPCS: 96372; 99284; 72131; 99283; J1885

== ENCOUNTER 2024-02-19 06:20 | Observation (INO) | payer OTHER, MEDICAID, SELFPAY ==
[2024-02-19] VITALS (54 sets, daily range): BP systolic 120–140; BP diastolic 74–103; PULSE 74–101; RESP 10–26; TEMP 36.5–37.7; O2SAT 91–97; BMI 32.3
--- NOTE | 2024-02-19 06:30 | DI.CT_ITS ---
Exam(s) CT ABDOMEN PELVIS W EXAM: CT ABDOMEN PELVIS W CLINICAL HISTORY: epigastric/RUQ abd pain and tenderness. TECHNIQUE: Imaging Protocol: Axial computed tomography images with coronal and sagittal reformatted images were created and reviewed CONTRAST MATERIAL: Intravenous: Omnipaque-350 100cc Oral: None COMPARISON: CT CT ABDOMEN PELVIS W from 03/06/2022 CR XR CHEST 2V PA LATERAL from 02/19/2024 FINDINGS: VISUALIZED LUNG BASES: Mild increased markings in both lung bases. No pleural effusions.. ABDOMEN: There is no ascites. LIVER: Liver is again noted be hypodense implying steatosis. There are no significant discrete focal hepatic lesions. No dilated intrahepatic ducts. GALLBLADDER/BILIARY: The gallbladder surgically absent. CBD is not dilated. PANCREAS: No evidence of pancreatic mass nor dilatation of the pancreatic duct. SPLEEN: Spleen is not enlarged. No obvious intrasplenic lesions. Splenic and portal veins are paten t. ADRENALS: There are no significant adrenal masses. KIDNEYS:No cysts evident. No solid renal masses. No calculi nor hydronephrosis.. ABDOMINAL AORTA: Abdominal aorta is not enlarged. LYMPH NODES:There is no retroperitoneal nor paraaortic adenopathy. ABDOMINAL WALL: No evidence of significant anterior abdominal wall nor inguinal hernia. GI: There is no evidence of bowel obstruction, free air, nor abscess. PELVIS: GI: The appendix is filled with fluid and dilated to 12 mm diameter. There is some mild periappendic eal streaking. There is some air still evident in the lumen of the appendix. There is a subtle sugg estion of an appendicolith at the junction of the cecum and appendix. Findings are suspicious for ap pendicitis. No evidence of rupture at this time. No evidence of sigmoid diverticulitis. LYMPH NODES: There is no intrapelvic nor inguinal adenopathy. REPRODUCTIVE: Uterus is surgically absent. There are no abnormal adnexal masses. URINARY BLADDER: No calculi nor obvious masses evident OSSEOUS: No fractures and no significant osseous lesions. IMPRESSION: 1. Findings as described above are suspicious for acute appendicitis. 2. Previous cholecystectomy and hysterectomy. There is no evidence of bowel obstruction. No ascites . Called by myself to ER physician 02/19/2024 7:58 a.m. RADIATION DOSE DELIVERED: 681.29mGy.cm Total DLP DATA REPOSITORY: All CT scans at this facility are submitted to the National Radiology Data Registry (NRDR) Dose Index Registry (DIR) with the [employer] (ACR). RADIATION OPTIMIZATION: All CT scans at this facility use at least one of these dose optimization te chniques: automated exposure control; mA and/or kV adjustment per patient size (includes targeted exa ms where dose is matched to clinical indication); or iterative reconstruction.
--- NOTE | 2024-02-19 06:37 | ED.GENADUL_ITS ---
Discharge Plan Discharge Details Chief Complaint: Abd Prob Primary Care Provider: Rosanna Godinez V ED Provider: Jodee Mclean Home Meds and New Rx's Prescriptions: No Action montelukast 10 mg tablet 10 mg PO QPM albuterol sulfate [ProAir HFA] 90 mcg/actuation HFA aerosol inhaler 2 puff inhalation .Q4-6H PRN fluticasone propionate [Flonase Allergy Relief] 50 mcg/actuation spray,suspension 2 spray intranasal DAILY Qty: 16 12RF Rx Instructions: administer into each nostril folic acid 1 mg tablet 1 mg PO DAILY loratadine [Allergy Relief (loratadine)] 10 mg tablet 10 mg PO DAILY Spiriva Respimat 2.5 mcg/actuation mist 2 puff inhalation DAILY cholecalciferol (vitamin D3) 1,000 unit/drop drops 1,000 unit PO HS Patient Comments: Dosing changed per patient 03/09/23 budesonide-formoterol [Symbicort] 160-4.5 mcg/actuation Hfa Aerosol Inhaler 2 puff INHALATION BID HPI General Mode of arrival: ambulatory . Date/Time Provider Initiated Documentation: 02/19/24 06:24 . Limitations to Documentation: no limitations . Information obtained by: patient . HPI Narrative: 43yo F with hx asthma, s/p cholecystectomy, presenting with abdominal pain and nausea. Symptoms started late yesterday evening, epigastric/RUQ abdominal pain, bloating, and nausea. Ate small amount at dinner, since then has been dry heaving. No emesis. Last bowel movement yesterday, formed/brown. Pain is mostly dull, occasionaly sharp, and radiates from her epigastrium to her RUQ. No back pain or flank pain. Otherwise in her usual state of health with no fevers, chills, rash, dysuria, hematuria, chest pain, shortness of breath, or other concerns. Related Data Home Medications ?Medication ?Instructions ?Recorded ?Confirmed cholecalciferol (vitamin D3) 25 1,000 unit PO HS 07/01/19 02/19/24 mcg/drop (1,000 unit/drop) oral drops albuterol sulfate 90 mcg/actuation 2 puff inhalation .Q4-6H PRN 03/01/21 02/19/24 aerosol inhaler (ProAir HFA) montelukast 10 mg tablet 10 mg PO QPM 03/01/21 02/19/24 fluticasone propionate 50 2 spray intranasal DAILY #16 grams 03/15/21 02/19/24 mcg/actuation nasal spray,suspension (Flonase Allergy Relief) folic acid 1 mg tablet 1 mg PO DAILY 06/04/22 02/19/24 loratadine 10 mg tablet (Allergy 10 mg PO DAILY 06/04/22 02/19/24 Relief (loratadine)) tiotropium bromide 2.5 2 puff inhalation DAILY 06/04/22 02/19/24 mcg/actuation mist for inhalation (Spiriva Respimat) budesonide-formoterol HFA 160 2 puff inhalation BID 03/09/23 02/19/24 mcg-4.5 mcg/actuation aerosol inhaler (Symbicort) Previous Rx's ?Medication ?Instructions ?Recorded fluticasone propionate 50 2 spray intranasal DAILY #16 grams 03/15/21 mcg/actuation nasal spray,suspension (Flonase Allergy Relief) Allergies Allergy/AdvReac Type Severity Reaction Status Date / Time adhesive Allergy Skin Rash Verified 02/19/24 06:26 bupropion AdvReac skin Verified 02/19/24 06:26 crawling General Stated Complaint: Abd Prob DIANNA: 3 Review of Systems Narrative: see HPI Exam Narrative Exam Narrative: General: Alert, in no acute distress. Head: Normocephalic, atraumatic Neck: Trachea midline, ?Neck supple. ENT: ?MMM.? Cardiac: ?RRR, no murmurs appreciated Resp: No respiratory distress. CTAB. Abd: ?Soft, non-distended, epigastrium and RUQ TTP with no rebound or guarding. Negative [place]. : ?No suprapubic tenderness. No CVA tenderness. Extremities: ?No deformities.? No peripheral edema. Neurologic: GCS 15. ? Moves all extremities freely against gravity Course Vital Signs Vital signs: Vital Signs Temperature 37.7 C H 02/19/24 06:23 Pulse 101 H 02/19/24 06:23 Respiratory Rate 24 02/19/24 06:23 Blood Pressure 131/103 H 02/19/24 06:23 Pulse Oximetry 97 02/19/24 06:23 Temperature 37.7 C H 02/19/24 06:23 Temperature Source Skin 02/19/24 06:23 Pulse 101 H 02/19/24 06:23 Respiratory Rate 24 02/19/24 06:23 Respiratory Effort Normal 02/19/24 06:25 Blood Pressure 131/103 H 02/19/24 06:23 Pulse Oximetry 97 02/19/24 06:23 Oxygen Delivery Method Room Air 02/19/24 06:23 Oxygen Flow Rate 0 02/19/24 06:23 Medical Decision Making 43yo F with hx asthma, s/p cholecystectomy, presenting with epigastric and RUQ abdominal pain with associated nausea since yesterday evening. Slightly tachycardiac on arrival after ambulating into triage, vital signs otherwise reassuring. Epigastric and RUQ tenderness on exam with no peritoneal signs. Not overtly septic; would not treat empirically. Broad differential; gastroenteritis, peptic ulcer disease, pancreatitis, hepatitis, less likely acute intraabdominal pathology including bowel obstruction/post cholecystectomy syndrome, nephrolithiasis, pyelenephritits. Will evaluate with labs and CT imaging. IV tylenol/toradol for pain, zofran for nausea, IVF. Will be signed out to oncoming physican, plan to followup labs and imaging as above, reassess. Quality:SDOH Health Related Social Needs: No Data to Display PFSH All Active Problems (Updated 11/28/23 @ 00:09 by TESSA ALICIA) Patellofemoral syndrome (Acute) Depression (Acute) Anxiety (Acute) BMI 29.0-29.9,adult (Acute) Kidney stones (Acute) Hx of endometriosis (Acute) History of asthma (Acute) Tendinitis of long head of biceps brachii of left shoulder (Acute ~07/2019) Headache, unspecified (Acute) Jaw pain (Acute) Sinusitis, chronic (Acute) Anticipatory grieving (Acute) Plantar fasciitis, bilateral (Acute) Lumbar radiculopathy (Acute) Benign essential HTN (Acute) Tobacco smoker within last 12 months (Acute) Chronic rhinitis (Acute) Mucocele of maxillary sinus (Acute) COVID-19 (Acute) Asthma (Chronic) Medical History Requires supplemental oxygen per pt. states when she sleeps her O2 drops to the 80's and has to wear 2L O2 at night Hypoxemia per pt. states when she sleeps her o2 drops to the 80's and has to wear 2L O2 at night Lipoma of extremity Bursitis of left shoulder Biceps tendonitis on left Raynauds syndrome PTSD (post-traumatic stress disorder) Per pt. states no issues currently History of depression Light tobacco smoker Fatigue Pain in left shoulder Dysmenorrhea (03/24/15) Dyspareunia (02/23/15) Menorrhagia (02/23/15) 7-10d menses Surgical History S/P excision of lipoma left shoulder S/P QUINTEN-BSO Curettage of endometrium (03/17/15) Dr. Rosenda Mathews Pathologic Diagnosis -Proliferative endometrium with extensive stomal breakdown -Benign fragments of squamous mucosa -No cytologic atypia Family History Mother Asthma Depression Social History Smoking/Tobacco Use Status: Current every day Tobacco Type: cigarettes Smoking risk assessment performed?: Yes Alcohol Intake: current Alcohol Intake frequency: holidays/special occasions only Drug use: Never Substance use type: does not use Current gender identity: female Do you feel safe at home: Yes Do you feel safe in your relationship?: Yes
[2024-02-19] MEDS: Normal Saline 1,000 ML 1000 ML IV (07:05)
[2024-02-19] MEDS: Ketorolac 15 MG/ML VIAL IVP (07:05)
[2024-02-19] MEDS: Ondansetron 4 MG/2 ML VIAL IVP ×3 (07:05→18:35)
[2024-02-19] MEDS: ACETAMINOPHEN 1,000 MG/100 ML BTL 400 MG IVPB (07:05)
--- OUTSIDE RECORDS SUMMARY | 2024-02-19 07:06 | XMS_ITS | Encounter Summary ---
Author Organization [facility] [place] [address] Care Team Providers Care Electrical Engineering Intern Name Role Phone Carol Randle APRN Primary Care Provider [phone] Encounter Details Date Type Department Care Team (Late st Contact Info) Description 02/14/2023 2:30 PM EDT Notes Only Weight and Wellness at [facility] [place] [place] [id number] Karma Fleming Social History Tobacco Use Types Packs/Day Years Used Date Smoking Tobacco: Every Day Cigarettes 1 20 Smokeless Tobacco: Never Comments:trying to quit Alcohol Use Standard Drinks/Week Comments Yes 0 (1 standard drink = 0.6 oz pur e alcohol) occasional Sex and Gender Information Value Date Recorded Sex Assigned at Not on file Gender Identity Not on file Sexual Orientation Not on file documented as of this encounter Progress Notes * Karma Fleming - 02/14/2023 2:30 PM EDT Pt logged onto the visit and had trouble connecting. After 10 minutes, HC called pt. Pt stated jigna did not get a chance to get to work on any of her goals due to her car breaking down and her family having to share a car for all outings, keeping her on the road, in addition to an already busy schedule. Pt stated she would like more time to work on these goals with her schedule settling down in February. HC confirmed with pt that the goals set previously are still ideal, HC and pt agreed to meet at the beginning of March. Disposition entered. Cath Lab Technologist to call. documented in this encounter Plan of Treatment Not on file documented as of this encounter Goals Goal Patient Goal Type Associated Problems Recent Progress Patient-Stated? Author Go for a walk for 30 minutes a day, 3 days a week Exercise No Karma Fleming Engage in strength training 2 days per week, pick 1 video of your choice sent by Exercise No Karma Fleming Note: Using RT Bands, unconventional, bodyweight 30 Minute Resistance Band Workout for Beginners (medium) https://www.Prediculousube.com/watch?v=qRXvypd50zm You should all have resistance bands from your welcome packet at weight and wellness. Please let me know if you need me to mail you some! 20 minute strength training workout (no equipment needed) - This one is long, break into pieces if you find it to be challenging! Any time you cannot do a movement in this video, just try to practice holding the starting position of that movement. https://www.Prediculousube.com/watch?v=L7wHRrSoBWR Seated Resistance Band Exercises https://www.Prediculousube.com/watch?v=KSUoKByDckc Simple Yoga-based strength training https://www.Prediculousube.com/watch?v=z1piKQMCrCI Balance and Strength training on Stairs https://www.Prediculousube.com/watch?v=gBTHlOQUCRo TRACK food intake Lifestyle No Alfreda Delgado MD Note: BAYRON such as Etactspal or Lose it, or pen and paper. If using bayron or activity monitor, don't add in extra calories for the calories you burn. work on NOT getting out of bed to eat Lifestyle No Alfreda Delgado MD have protein-containin g breakfast Lifestyle No Alfreda Delgado MD self-awareness and goal setting Lifestyle No Bertin Bobo Note: Draft a Wellness Vision. Nutrition - 03/20/[address] Note: Nutrition Goals: Return to exercise routine when able - continue walking as able, consider increasing to moderate intensity walking; continue yoga and resistance band exercise; explore exercise options during work; Focus on packing foods for lunch and snack at new job that include protein Return to balanced plate - 1/2 plate vegetables, 1/4 plate protein, 1/4 plate high quality carbohydrate Continue progress on quitting smoking documented as of this encounter Visit Diagnoses Not on filedocumented in this encounter Care Teams Electrical Engineering Intern Relationship Specialty Start Date End Date Carlo Randle, JORDY PCP - General Family Medicine 03/26/22 documented as of this encounter
--- OUTSIDE RECORDS SUMMARY | 2024-02-19 07:06 | XMS_ITS | Encounter Summary ---
Author Organization [facility] Address [address] [place] [address] Care Team Providers Care Electronic Intelligence Officer Name Role Phone Unavailable Primary Care Provider Unavailabl e Encounter Details Date Type Department Care Team (Late st Contact Info) Description 09/16/2001 Results Only [facility] - Maple conversion [address] [place] [address] Richard Wood CNM Social History Tobacco Use Types Packs/Day Years Used Date Smoking Tobacco: Never Assessed Sex and Gender Information Value Date Recorded Sex Assigned at Not on file Gender Identity Not on file Sexual Orientation Not on file documented as of this encounter Plan of Treatment Not on file documented as of this encounter Procedures Procedure Name Priority Date/Time Associated Diagnosis Comments CYTOPATHOLOGY Routine 09/16/2001 0:00 EST documented in this encounter Results * CYTOPATHOLOGY (09/16/2001 0:00 EST) Pathology Report: CYTOPATHOLOGY REPORT Reports generated via electronic interface contain original data; however they are lacking the format of the original report. Caution should be taken when reading/interpreti ng unformatted reports. Name: ? ANNALISA MONROY ? Accession #: ? [id number] : ? 1980 (Age: 21) ??F ?Collect Date: ? 09/16/2001 Location: ? [facility] ? Receive Date: ? 09/18/2001 Provider: ?RICHARD WOOD CNM Copy to: ? Specimen/Source: ?ThinPrep Pap Test, Vagina/Cervix Last Menstrual Period: ? 08/21/01 Menstrual/Pregnanc y Status: ? Post Other: ? Client ID#: [id number] ? SPECIMEN ADEQUACY ? Satisfactory for Evaluation - transformation zone component present GENERAL CATEGORIZATION ? Epithelial Cell Abnormality INTERPRETATION ? Squamous Cell Abnormality - Atypical squamous cells, undetermined significance. EDUCATIONAL NOTES/RECOMMENDATI ONS ? Recommend clinical correlation and further evaluation, as clinically indicated. ? Document reviewed and electronically signed by: ? FRANKLIN FRANKS MD [facility] ? Report Date: ??09/25/2001 16:15 End of Report [facility] 09/16/2001 09/18/2001 Richard Wood CNGriffin PATHOLOGY ORDERABLES Performing Organization Address City/State/[facility] Co de Phone Number [facility] [address] [place] [address] documented in this encounter Visit Diagnoses Not on filedocumented in this encounter
--- OUTSIDE RECORDS SUMMARY | 2024-02-19 07:06 | XMS_ITS | Encounter Summary ---
Author Organization [facility] Address [address] [place] [address] Care Team Providers Care Broadcast Meteorologist Name Role Phone Jesus Leyva MD Primary Care Provider [phone] Encounter Details Date Type Department Care Team (Late st Contact Info) Description 03/17/2015 Results Only [facility] [phone] Ashley Mathews MD [address] [place] [address] Social History Tobacco Use Types Packs/Day Years Used Date Smoking Tobacco: Never Assessed Sex and Gender Information Value Date Recorded Sex Assigned at Not on file Gender Identity Not on file Sexual Orientation Not on file documented as of this encounter Plan of Treatment Not on file documented as of this encounter Procedures Procedure Name Priority Date/Time Associated Diagnosis Comments SURGICAL PATHOLOGY Routine 03/17/2015 9:10 EDT documented in this encounter Results * SURGICAL PATHOLOGY (03/17/2015 9:10 EDT) Pathology Report: SURGICAL PATHOLOGY REPORT Reports generated via electronic interface contain original data; however they are lacking the format of the original report. Caution should be taken when reading/interpreting unformatted reports. Name: ? ANNALISA MAHER ? Accession #: ? [id number] ? : ? 1980 (Age: 34) ??F ? Collect Date: ? 03/17/2015 ? Location: ? [facility] ? Receive Date: ? 03/18/2015 ? Provider: ASHLEY MATHEWS MD Copy to: BETO CHOW MD ? Final Pathologic Diagnosis: ENDOMETRIUM, CURETTAGE: - Proliferative endometrium with extensive stromal breakdown. See comment. - Benign fragments of squamous mucosa. - No cytologic atypia. Comment: Sifter And Miller slides of this case were reviewed at the intradepartmental consultation conference. Document reviewed and electronically signed by: FILI SUNG MD Report ??Date: 03/22/2015 17:20 By the signature above, the attending physician certifies that he/she has personally conducted a gross and/or microscopic examination of the described specimens and rendered or confirmed the above diagnosis. Specimen(s) Received: Endometrial curettings Clinical History: Menorrhagia; dysmenorrhea, dyspareunia Gross Description: ? Received in formalin labelled with proper patient identification (initials M, C) and endometrial curettings is an aggregate of gleason-pink membranous tissue and hemorrhage (2.1 x 1.6 x 0.4 cm). The specimen is submitted entirely in 1 and 2. 03/18/2015 1:03 PM End of Report [facility] 03/17/2015 9:10 EDT 03/18/2015 9:10 EDT Ashley Mathews MD PATHOLOGY ORDERABLES [facility] [address] [place] [address] documented in this encounter Visit Diagnoses Not on filedocumented in this encounter Care Teams Broadcast Meteorologist Relationship Specialty Start Date End Date Jesus Leyva MD [address] [place] [address] PCP - General 04/14/10 03/21/15 documented as of this encounter
--- OUTSIDE RECORDS SUMMARY | 2024-02-19 07:06 | XMS_ITS | Encounter Summary ---
Author Organization [facility] Address [facility] [place] [address] Care Team Providers Care Chinese Instructor Name Role Phone Carol Randle APRN Primary Care Provider [phone] Encounter Details Date Type Department Care Team (Late st Contact Info) Description 03/26/2023 12:30 PM EDT Notes Only Weight and Wellness at [facility] [place] [id number] Karma Fleming Social History Tobacco Use Types [...] encounter Progress Notes * Karma Fleming - 03/26/2023 12:30 PM EDT Images from the original note were not included. Milagros Maher is here today at the request of their Weight and Wellness MD for comprehensive lifestyle coaching, centered around weight control and optimizing overall health. FOLLOWING UP Post-Visit Check-In Pt almost cancelled visit today due to no goals to work on but decided to check in anyway. Broke ankle tripping over puppy, has been non weight barring, is just starting to be able to move around with crutches, and was able to shower on her own for the first time recently. Has been slowly increasing her movement each day. also has torn rotator cuff, so both are having trouble getting around. Pt estimates should be out of the boot within another couple of weeks. Pt states her friend and her are planning on doing the turkey trot 5K walk on . Have been doing PT exercises very consistently. Has been doing the alphabet with her ankle. Is getting very caught up with homework just was notified she achieved associates degree. First week of injury was very hard mentally, but now it has been 2 weeks and she has gotten into a better headspace Pt states she has been eating very healthy consistently, and has been using her crockpot to help with this. 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 HC and pt discussed no exercise, and HC asked pt if she wants to work on anything else with health coaching CONCLUDING THOUGHTS Goals Evaluation and Changes No goals discussed today, pt had no other goals she would like to work on at this time Method for Accountability []Food log: [] daily [] intermittent []Weigh-ins [] daily [] weekly []Exercise log []Gratitude Journal []Other: To Address Next Visit [] Exercise []Sleep []Stress []Accountability []Food Behaviors []Self-compassion []Other: Follow Up Pt will schedule follow up when ready documented in this encounter Plan of Treatment [...] Minute Resistance Band Workout for Beginners (medium) https://www.Benkyo Player.com/watch?v=nQAxdmr76tq You should all have resistance bands from [...] holding the starting position of that movement. https://www.youDirectworksube.com/watch?v=L3sXYaSgRKK Seated Resistance Band Exercises https://www.Viblioube.com/watch?v=KSUoKByDckc Simple Yoga-based strength training https://www.youDirectworksube.com/watch?v=b2buTLUMeHN Balance and Strength training on Stairs https://www.youtube.com/watch?v=gBTHlOQUCRo TRACK food intake Lifestyle No Alfreda Delgado MD Note: BAYRON such as SkyFuelpal or Lose it, or pen and paper. [...] on filedocumented in this encounter Care Teams Chinese Instructor Relationship Specialty Start Date End Date Carol Randle APRN PCP - General Family Medicine 03/26/22 documented as of this encounter
--- OUTSIDE RECORDS SUMMARY | 2024-02-19 07:06 | XMS_ITS | Encounter Summary ---
Author Organization [facility] Address [address] [place] [address] Care Team Providers Care Manager Staffing Name Role Phone Hung Willis MD Primary Care Provider Unav ailable Encounter Details Date Type Department Care Team (Late st Contact Info) Description 10/03/2021 Lab Requisition [facility] Pathology & Laboratory Medicine - [facility] [address], [place] [id number] Outr Resulting Lab, Provider Social History Tobacco Use Types Packs/Day Years Used Date Smoking Tobacco: Never Assessed Interpersonal Safety Answer Date Record ed Physically Hurt Never 01/24/2020 Verbally Threaten Not on file 01/24/2020 Sex and Gender Information Value Date Recorded Sex Assigned at Not on file Gender Identity Not on file Sexual Orientation Not on file documented as of this encounter Plan of Treatment Not on file documented as of this encounter Procedures Procedure Name Priority Date/Time Associated Diagnosis Comments HEPATITIS C AB W REFLEX TO HCV RNA BY PCR Routine 10/02/2021 16:20 EDT HEPATITIS B SURFACE ANTIBODY Routine 10/02/2021 16:20 EDT documented in this encounter Results * HEPATITIS B SURFACE ANTIBODY (10/02/2021 16:20 EDT) Hep B Surface Ab, Quantitative 46.8 See Note mIU/mL 10/04/2021 9:48 EDT [facility] Comment: Reference Range for Hep B Surface Ab, Quant: Positive: >= 10.0 mIU/mL Negative: ??< 10.0 mIU/mL Patient is presumed to be immune to infection with Hepatitis B Virus. Hep B Surface Ab, Qualitative Positive See Note 10/04/2021 9:48 EDT [facility] Comment: Reference Range for Hep B Surface Ab, Qual: Unvaccinated: ??Negative Vaccinated: ??Positive Blood VENOUS BLOOD / Unknown 10/02/2021 16:20 EDT 10/03/2021 16:48 EDT Provider Outr Resulting Lab CHEMISTRY & BLOOD GAS ORDERABLES Performing Organization Address City/[facility] Co de Phone Number [facility] [address] [place] [address] * HEPATITIS C AB W REFLEX TO HCV RNA BY PCR (10/02/2021 16:20 EDT) Hep C Antibody Negative Negative 10/04/2021 10:42 EDT [facility] Blood VENOUS BLOOD / Unknown 10/02/2021 16:20 EDT 10/03/2021 16:48 EDT Provider Outr Resulting Lab CHEMISTRY & BLOOD GAS ORDERABLES Performing Organization Address City/[facility] Co de Phone Number [facility] [address] [place] [address] documented in this encounter Visit Diagnoses Not on filedocumented in this encounter Care Teams Manager Staffing Relationship Specialty Start Date End Date Hung Willis MD PCP - General 03/22/15 documented as of this encounter
--- OUTSIDE RECORDS SUMMARY | 2024-02-19 07:06 | XMS_ITS | Encounter Summary ---
Author Organization [facility] [place] [address] Care Team Providers Care Sign Shop Supervisor Name Role Phone Carol Randle APRN Primary Care Provider [phone] Reason for Referral * Consultation (Routine) - Closed Specialty Diagnoses / Procedures Referred By Contac t Referred To Contact Dermatology Diagnoses Skin lesion Rosanan Godinez MD [address] [email or web address] [address] [facility] Dermatology [address] [place] [address] Referral ID Status Reason Start Date Expiration Date V isits Requested Visits Authorized [id number] Closed Consult, Test & Treat PCP Updated and/or Approved 08/21/2022 08/21/2023 12 12 Encounter Details Date Type Department Care Team (Late st Contact Info) Description 08/21/2022 Transcribe Orders eDH Incoming Referrals [phone] Rosanna Godinez MD [address] [email or web address], [place] [id number] Skin lesion Social History Tobacco Use Types Packs/Day Years [...] as of this encounter Plan of Treatment Scheduled Referrals Name Type Priority Associated Diagnoses Order Schedule Referral to Dermatology Outpatient Referral Routine Skin lesion Ordered: 08/21/2022 documented as of this encounter Goals Goal Patient Goal Type Associated Problems Recent Progress Patient-Stated? Author TRACK food intake Lifestyle No Alfreda Delgado MD Note: BAYRON such as Tinybeanspal or Lose it, or pen and paper. [...] documented as of this encounter Visit Diagnoses Diagnosis Skin lesion Unspecified disorder of skin and subcutaneous tissue documented in this encounter Care Teams Sign Shop Supervisor Relationship Specialty Start Date End Date Carol Randle APRN PCP - General Family Medicine 03/26/22 documented as of this encounter
--- OUTSIDE RECORDS SUMMARY | 2024-02-19 07:06 | XMS_ITS | Encounter Summary ---
Author Organization [facility] Address [address] [place] [address] Care Team Providers Care Technical Writing Lead/Mgr Name Role Phone Unavailable Primary Care Provider Unavailabl e Encounter Details Date Type Department Care Team (Late st Contact Info) Description 03/23/2002 Results Only [facility] - Maple conversion [address] [place] [address] Hugh Norris MD Social History Tobacco Use Types Packs/Day Years Used Date Smoking Tobacco: Never Assessed Sex and Gender Information Value Date Recorded Sex Assigned at Not on file Gender Identity Not on file Sexual Orientation Not on file documented as of this encounter Plan of Treatment Not on file documented as of this encounter Procedures Procedure Name Priority Date/Time Associated Diagnosis Comments CYTOPATHOLOGY Routine 03/23/2002 0:00 EDT documented in this encounter Results * CYTOPATHOLOGY (03/23/2002 0:00 EDT) Pathology Report: CYTOPATHOLOGY REPORT Reports generated via electronic interface contain original data; however they are lacking the format of the original report. Caution should be taken when reading/interpreti ng unformatted reports. Name: ? ANNALISA MONROY ? Accession #: ? [id number] : ? 1980 (Age: 21) ??F ?Collect Date: ? 03/23/2002 Location: ? [facility] ? Receive Date: ? 03/25/2002 Provider: ?HUGH NORRIS MD Copy to: ? Specimen/Source: ?ThinPrep Pap Test, Cervix/Endocervix Last Menstrual Period: ? ] Hormonal/Contracep tive Status: ? Yes Previous Gynecologic Pathology: ? ASC-US: 09/16/01, 02/04/02 Other: ? Colposcopy Pap and/or biopsy in progress HPVA - HPV testing requested if ASC-US on the current ThinPrep Pap test. ? SPECIMEN ADEQUACY ? Satisfactory for Evaluation - transformation zone component present GENERAL CATEGORIZATION ? Negative for Intraepithelial Lesion or Malignancy ? Document reviewed and electronically signed by: ? Mary Ellen Neff, VERA(ASCP) ? Report Date: ??03/26/2002 12:16 End of Report [facility] 03/23/2002 03/25/2002 Hugh Norris MD PATHOLOGY ORDERABLES [facility] [address] [place] [address] documented in this encounter Visit Diagnoses Not on filedocumented in this encounter
--- OUTSIDE RECORDS SUMMARY | 2024-02-19 07:06 | XMS_ITS | Encounter Summary ---
Author Organization [facility] Address [address] [place] [address] Care Team Providers Care Buffer Operator Name Role Phone Unavailable Primary Care Provider Unavailabl e Encounter Details Date Type Department Care Team (Late st Contact Info) Description 01/02/2001 Results Only [facility] - Maple conversion [address] [place] [address] Faby Read CNM Social History Tobacco Use Types Packs/Day Years Used Date Smoking Tobacco: Never Assessed Sex and Gender Information Value Date Recorded Sex Assigned at Not on file Gender Identity Not on file Sexual Orientation Not on file documented as of this encounter Plan of Treatment Not on file documented as of this encounter Procedures Procedure Name Priority Date/Time Associated Diagnosis Comments HEPATITIS B SURFACE ANTIGEN Routine 01/02/2001 20:54 EDT HIV 1/2 ANTIGEN AND ANTIBODY, 4TH GENERATION Routine 01/02/2001 20:54 EDT documented in this encounter Results * HIV ANTIBODY (ABIEL) (01/02/2001 20:54 EDT) HIV 1/2 Antibody NONREACT. NR [facility] 01/02/2001 20:5 4 EDT 01/02/2001 20:54 EDT Faby Read CNM IMMUNOLOGY AND SEROL OGY ORDERABLES [facility] [address] [place] [address] * HEPATITIS B SURFACE ANTIGEN (01/02/2001 20:54 EDT) Hepatitis B Surface Ag Neg [facility] 01/02/2001 20:5 4 EDT 01/02/2001 20:54 EDT Faby Read CNM CHEMISTRY & BLOOD GA S ORDERABLES [facility] [address] [place] [address] documented in this encounter Visit Diagnoses Not on filedocumented in this encounter
--- OUTSIDE RECORDS SUMMARY | 2024-02-19 07:06 | XMS_ITS | Encounter Summary ---
Author Organization [facility] Address [address] [place] [address] Care Team Providers Care Sport Psychologist Name Role Phone Unavailable Primary Care Provider Unavailabl e Encounter Details Date Type Department Care Team (Late st Contact Info) Description 01/15/2001 Results Only [facility] - Maple conversion [address] [place] [address] Richard Wood CNM Social History Tobacco Use [...] Priority Date/Time Associated Diagnosis Comments CYTOPATHOLOGY Routine 01/15/2001 0:00 EDT documented in this encounter Results * CYTOPATHOLOGY (01/15/2001 0:00 EDT) Pathology Report: CYTOPATHOLOGY REPORT Reports generated via electronic interface contain original data; however they are lacking the format of the original report. Caution should be taken when reading/interpreti ng unformatted reports. Name: ? ANNALISA MONROY ? Accession #: ? [id number] : ? 1980 (Age: 20) ??F ?Collect Date: ? 01/15/2001 Location: ? [facility] ? Receive Date: ? 01/17/2001 Provider: ?RICHARD WOOD CNM Copy to: ? Specimen/Source: ?ThinPrep Pap Test, Cervix/Endocervix Last Menstrual Period: ? 10/22/00 Menstrual/Pregnanc y Status: ? SPECIMEN ADEQUACY ? Satisfactory for evaluation but limited by an absence of a transformation zone component. GENERAL CATEGORIZATION ? Within Normal Limits ? Document reviewed and electronically signed by: ? VERA Millard(ASCP) ? Report Date: ??01/23/2001 11:16 End of Report [facility] 01/15/2001 01/17/2001 Richard Wood CNM PATHOLOGY ORDERABLES [facility] [address] [place] [address] documented in this encounter Visit Diagnoses Not on filedocumented in this encounter
--- OUTSIDE RECORDS SUMMARY | 2024-02-19 07:06 | XMS_ITS | Encounter Summary ---
Author Organization [facility] Address [address] [place] [address] Care Team Providers Care Buttonhole Maker Name Role Phone Hung Willis MD Primary Care Provider Unav ailable Encounter Details Date Type Department Care Team (Late st Contact Info) Description 02/07/2021 Lab Requisition [facility] Pathology & Laboratory Medicine - [facility] [address] [place], [place] [address] Outr Resulting Lab, Provider Social History Tobacco [...] Procedure Name Priority Date/Time Associated Diagnosis Comments DO NOT ORDER STANDALONE - AMINATA COVID TESTING Today 02/06/2021 16:00 EDT COVID-19 TESTING Routine 02/06/2021 16:0 0 EDT documented in this encounter Results * DO NOT ORDER STANDALONE - AMINATA COVID TESTING (02/06/2021 16:00 EDT) COVID-19 rt-PCR Result Not Detected Not Detected 02/08/2021 17:57 EDT [facility] Comment: This test has not been FDA cleared or approved. This test has been authorized by FDA under an EUA for use by authorized laboratories. ??This test has been authorized only for the detection of nucleic acid from SARS-CoV-2, not for any other viruses or pathogens. ??This test is only authorized for the duration of the declaration that circumstances exist justifying the authorization of emergency use of in vitro diagnostic tests for detection and/or diagnosis of COVID-19 under Section 564(b)(1) of the Act, 21 U.S.C. Section 360bbb-3(b)(1), unless the authorization is terminated or revoked sooner. ??Factsheets for healthcare providers: ??https://www.fda.gov/media/293288/download Factsheets for patients: https://www.fda.gov/media/182166/download Negative results do not preclude infection with SARS-CoV-2 virus, and should not be the sole basis of a patient management decision. Swab ENTIRE NASOPHARYNX / Unknown 02/06/2021 16:00 EDT 02/07/2021 15:46 EDT Provider Outr Resulting Lab MICROBIOLOGY - GENERAL ORDERABLES [facility] [address] [place] [address] * COVID-19 TESTING (02/06/2021 16:00 EDT) COVID-19 rt-PCR Result Not Detected Not Detected 02/08/2021 18:22 EDT [facility] Comment: This test has not been FDA cleared or approved. This test has been authorized by FDA under an EUA for use by authorized laboratories. ??This test has been authorized only for the detection of nucleic acid from SARS-CoV-2, not for any other viruses or pathogens. ??This test is only authorized for the duration of the declaration that circumstances exist justifying the authorization of emergency use of in vitro diagnostic tests for detection and/or diagnosis of COVID-19 under Section 564(b)(1) of the Act, 21 U.S.C. Section 360bbb-3(b)(1), unless the authorization is terminated or revoked sooner. ??Factsheets for healthcare providers: ??https://www.fda.gov/media/604358/download Factsheets for patients: https://www.fda.gov/media/707949/download Negative results do not preclude infection with SARS-CoV-2 virus, and should not be the sole basis of a patient management decision. Performing Lab [facility] 02/08/2021 18:22 EDT [facility] Swab 02/06/2021 16:0 0 EDT 02/07/2021 15:46 EDT Provider Outr Resulting Lab MICROBIOLOGY - GENERAL ORDERABLES [facility] [address] LABORATORY [address] [place] [address] documented in this encounter Visit Diagnoses Not on filedocumented in this encounter Care Teams Buttonhole Maker Relationship Specialty Start Date End Date Hung Willis MD PCP - General 03/22/15 documented as of this encounter
--- OUTSIDE RECORDS SUMMARY | 2024-02-19 07:06 | XMS_ITS | Encounter Summary ---
Author Organization [facility] Address [address] [place] [address] Care Team Providers Care Urgent Care Physician Assistant Name Role Phone Jesus Leyva MD Primary Care Provider [phone] Encounter Details Date Type Department Care Team (Late st Contact Info) Description 10/06/2010 Results Only [facility] [phone] Deepa Aparicio, REPLANTER [address] [place], [place] [id number] Social History Tobacco Use Types Packs/Day Years Used Date Smoking Tobacco: Never Assessed Sex and Gender Information Value Date Recorded Sex Assigned at Not on file Gender Identity Not on file Sexual Orientation Not on file documented as of this encounter Plan of Treatment Not on file documented as of this encounter Procedures Procedure Name Priority Date/Time Associated Diagnosis Comments CYTOPATHOLOGY Routine 10/06/2010 0:00 EDT documented in this encounter Results * CYTOPATHOLOGY (10/06/2010 0:00 EDT) Pathology Report: CYTOPATHOLOGY REPORT ? Reports generated via electronic interface contain original data; ? however they are lacking the format of the original report. ? Caution should be taken when reading/interpreti ng unformatted reports. ? Name: ? ANNALISA MAHER ? Accession #: ? [id number] ? : ? 1980 (Age: 30) ??F ?Collect Date: ? 10/06/2010 ? Location: ? [facility] ? Receive Date: ? 10/09/2010 ? Provider: ?DEEPA APARICIO REPLANTER ? Copy to: ? Specimen/Source: ?Pap Test, Cervix, ThinPrep Imaging System with manual ?? evaluation ? Last Menstrual Period: ? 12/25/10 ? Menstrual/Pregnanc y Status: ? Post ? Other: ? Additional clinical information: S/P spontanious ? SPECIMEN ADEQUACY ? Satisfactory for Evaluation ? - transformation zone component present ? GENERAL CATEGORIZATION ? Negative for Intraepithelial Lesion or Malignancy ? Document reviewed and electronically signed by: ? Sharron Caldwelllogg, CT(ASCP) ? Report Date: ??10/12/2010 11:33 ? End of Report ? [facility] 10/06/2010 10/09/2010 Deepa Aparicio REPLANTER PATHOLOGY ORDERAB LES Performing Organization Address City/State/[facility] Co de Phone Number [facility] [address] [place] [address] documented in this encounter Visit Diagnoses Not on filedocumented in this encounter Care Teams Urgent Care Physician Assistant Relationship Specialty Start Date End Date Jesus Leyva MD [address] [place] [address] PCP - General 04/14/10 03/21/15 documented as of this encounter
--- OUTSIDE RECORDS SUMMARY | 2024-02-19 07:06 | XMS_ITS | Encounter Summary ---
Author Organization [facility] Address [address] [place] [address] Care Team Providers Care Vegetable Thinner Name Role Phone Jesus Leyva MD Primary Care Provider [phone] Encounter Details Date Type Department Care Team (Late st Contact Info) Description 02/23/2015 Results Only [facility] [phone] Ashley Mathews MD [address] [place] [address] Social History Tobacco Use Types Packs/Day Years Used Date Smoking Tobacco: Never Assessed Sex and Gender Information Value Date Recorded Sex Assigned at Not on file Gender Identity Not on file Sexual Orientation Not on file documented as of this encounter Plan of Treatment Not on file documented as of this encounter Procedures Procedure Name Priority Date/Time Associated Diagnosis Comments PAP TEST- RESULT ONLY Routine 02/23/2015 0:00 EDT documented in this encounter Results * PAP TEST- RESULT ONLY (02/23/2015 0:00 EDT) Pathology Report: CYTOPATHOLOGY REPORT Reports generated via electronic interface contain original data; however they are lacking the format of the original report. Caution should be taken when reading/interpreti ng unformatted reports. Name: ? ANNALISA MAHER ? Accession #: ? [id number] ? : ? 1980 (Age: 34) ??F ?Collect Date: ? 02/23/2015 ? Location: ? [facility] ? Receive Date: ? 02/24/2015 ? Provider: ASHLEY MATHEWS MD Copy to: BETO CHOW MD ? Final Report SPECIMEN ADEQUACY ? Satisfactory for Evaluation - transformation zone component present GENERAL CATEGORIZATION ? Negative for Intraepithelial Lesion or Malignancy ?? Other: Additional clinical information: negative pap history, last pap 2011 Specimen/Source: ??Pap Test, Cervix/Endocervix, ThinPrep Imaging System with manual evaluation Document reviewed and electronically signed by: ? Sharron Quinteros, CT(ASCP) ? Report ??Date: 03/01/2015 08:39 HPV with Pap Test ? Date Ordered: ? 03/01/2015 ? Status: ?? Signed Out ?Date Complete: ? 03/03/2015 ? By: ??System Interface ? Date Reported: ? 03/03/2015 ? Interpretation RESULT: Negative for HPV. No E6 or E7 mRNA is detected from HPV types 16,18,31,33,35, 39,45,51,52,56,58, 59,66, and 68 by systems requirements planner mediated amplification. Comments Document reviewed and electronically signed by: ? System Interface ? Report date: 03/03/2015 By the signature above, the attending physician certifies that he/she has personally conducted a gross and/or microscopic examination of the described specimens and rendered or confirmed the above diagnosis. End of Report [facility] 02/23/2015 02/24/2015 Ashley Mathews MD PATHOLOGY ORDERABLES [facility] [address] [place] [address] documented in this encounter Visit Diagnoses Not on filedocumented in this encounter Care Teams Vegetable Thinner Relationship Specialty Start Date End Date Jesus Leyva MD [address] [place] [address] PCP - General 04/14/10 03/21/15 documented as of this encounter
--- OUTSIDE RECORDS SUMMARY | 2024-02-19 07:06 | XMS_ITS | Encounter Summary ---
Author Organization [facility] Address [address] [place] [address] Care Team Providers Care Sprinkling Truck Driver Name Role Phone Hung Willis MD Primary Care Provider Unav ailable Encounter Details Date Type Department Care Team (Late st Contact Info) Description 07/17/2021 Lab Requisition [facility] Pathology & Laboratory Medicine - [address] [address] Outr Resulting Lab, Provider Social History Tobacco [...] Procedure Name Priority Date/Time Associated Diagnosis Comments ZZCOVID-19 TEST [facility] PCR Today 07/17/2021 9:40 EST COVID-19 TESTING Routine 07/17/2021 9:40 EST documented in this encounter Results * COVID-19 TEST [facility] PCR (07/17/2021 9:40 EST) Swab 07/17/2021 9:40 EST 07/17/2021 16:58 EST Provider Outr Resulting Lab MICROBIOLOGY - GENERAL ORDERABLES [facility] [address] [place] [address] * COVID-19 TESTING (07/17/2021 9:40 EST) COVID-19 rt-PCR Result Negative Negative 07/18/2021 10:43 EST [facility] Comment: This test has not been FDA cleared or approved. This test has been authorized by FDA under an EUA for use by authorized laboratories. This test has been authorized only for detection of nucleic acid from 2019-nCoV, not for any other viruses or pathogens. This test is only authorized for the duration of the declaration that circumstances exist justifying the authorization of emergency use of in vitro diagnostic tests for detection and/or diagnosis of 2019-nCoV under section 564(b)(1) of Act, 21 U.S.C ?? 360bbb-3(b) (1), unless the authorization is terminated or revoked sooner. Negative results do not preclude 2019-nCoV infection and should not be used as the sole basis for treatment or other patient management decisions. Negative results must be combined with clinical observations, patient history, and epidemiological information. Testing was performed using the andrea SARS-CoV-2 assay ([employer] on the Andrea 6800 System Performing Lab Andrea [address] [facility] Lab 07/18/2021 10:43 EST [facility] Swab 07/17/2021 9:40 EST 07/17/2021 16:58 EST Provider Outr Resulting Lab MICROBIOLOGY - GENERAL ORDERABLES Performing Organization Address City/State/[facility] Co de Phone Number [facility] [address] [place] [address] documented in this encounter Visit Diagnoses Not on filedocumented in this encounter Care Teams Sprinkling Truck Driver Relationship Specialty Start Date End Date Hung Willis MD PCP - General 03/22/15 documented as of this encounter
--- OUTSIDE RECORDS SUMMARY | 2024-02-19 07:06 | XMS_ITS | Encounter Summary ---
Author Organization [facility] [place] [address] Care Team Providers Care Geography Teacher Name Role Phone Carol Randle APRN Primary Care Provider [phone] Encounter Details Date Type Department Care Team (Latest Contact Info) Description 02/19/2023 Travel Social History Tobacco Use Types Packs/Day Years [...] a day, 3 days a week Exercise Karma Sanders Engage in strength training 2 days per week, pick 1 video of your choice sent by Exercise No Karma Fleming Note: Using RT Bands, unconventional, bodyweight 30 Minute Resistance Band Workout for Beginners (medium) https://www.youBrian Industriesube.com/watch?v=kEDqvwe96hz You should all have resistance bands from [...] holding the starting position of that movement. https://www.youtube.com/watch?v=C2sZIaSoEOD Seated Resistance Band Exercises https://www.youtube.com/watch?v=KSUoKByDckc Simple Yoga-based strength training https://www.youtube.com/watch?v=q1xuQLFAhMS Balance and Strength training on Stairs https://www.youtube.com/watch?v=gBTHlOQUCRo TRACK food intake Lifestyle No Alfreda Delgado MD Note: BAYRON such as [employer] or Lose it, or pen and paper. If using bayron or activity monitor, don't add in extra calories for the calories you burn. work on NOT getting out of bed to eat Lifestyle No Alfreda Delgado MD have protein-containin g breakfast Lifestyle No Alfreda Delgado MD self-awareness and goal setting Lifestyle No Bertin Boob Note: Draft a Wellness [employer]. Nutrition - [...] on filedocumented in this encounter Care Teams Geography Teacher Relationship Specialty Start Date End Date Carol Randle APRN PCP - General Family Medicine 03/26/22 documented as of this encounter
--- OUTSIDE RECORDS SUMMARY | 2024-02-19 07:06 | XMS_ITS | Encounter Summary ---
Author Organization [facility] Address [address] [place] [address] Care Team Providers Care Rock Crushing Machine Operator Name Role Phone Hung Willis MD Primary Care Provider Unav ailable Encounter Details Date Type Department Care Team (Late st Contact Info) Description 07/26/2020 Lab Requisition [facility] Pathology & Laboratory Medicine - [address] [address] Outr Resulting Lab, Provider Social History Tobacco [...] Priority Date/Time Associated Diagnosis Comments ZZCOVID-19 TEST [facility] PCR Today 07/25/2020 17:00 EST COVID-19 TESTING Routine 07/25/2020 17:0 0 EST documented in this encounter Results * COVID-19 TEST [facility] PCR (07/25/2020 17:00 EST) Swab ENTIRE NASOPHARYNX / Unknown 07/25/2020 17:00 EST 07/26/2020 15:59 EST Provider Outr Resulting Lab MICROBIOLOGY - GENERAL ORDERABLES [facility] [address] [place] [address] * COVID-19 TESTING (07/25/2020 17:00 EST) COVID-19 rt-PCR Result Negative Negative 07/27/2020 12:38 EST [facility] Comment: This test has [...] was performed using the andrea SARS-CoV-2 assay ([employer] on the Andrea 6800 System Performing Lab Andrea [address] [facility] Lab 07/27/2020 12:38 EST [facility] Swab 07/25/2020 17:0 0 EST 07/26/2020 15:59 EST Provider Outr Resulting Lab MICROBIOLOGY - GENERAL ORDERABLES Performing Organization Address City/State/[facility] Co de Phone Number [facility] [address] [place] [address] documented in this encounter Visit Diagnoses Not on filedocumented in this encounter Care Teams Rock Crushing Machine Operator Relationship Specialty Start Date End Date Hung Willis MD PCP - General 03/22/15 documented as of this encounter
--- OUTSIDE RECORDS SUMMARY | 2024-02-19 07:06 | XMS_ITS | Encounter Summary ---
Author Organization [facility] Address [address] [place] [address] Care Team Providers Care Wardrobe Mistress Name Role Phone Hung Willis MD Primary Care Provider Unav ailable Encounter Details Date Type Department Care Team (Late st Contact Info) Description 03/07/2021 Lab Requisition [facility] Pathology & Laboratory Medicine - [facility] [address] [place], [place] [address] Outr Resulting Lab, Provider Social History Tobacco [...] Comments ZZCOVID-19 TEST [facility] PCR Today 03/07/2021 10:00 EDT COVID-19 TESTING Routine 03/07/2021 10:0 0 EDT documented in this encounter Results * COVID-19 TEST [facility] PCR (03/07/2021 10:00 EDT) Swab ENTIRE NASOPHARYNX / Unknown 03/07/2021 10:00 EDT 03/07/2021 21:13 EDT Provider Outr Resulting Lab MICROBIOLOGY - GENERAL ORDERABLES [facility] [address] [place] [address] * COVID-19 TESTING (03/07/2021 10:00 EDT) COVID-19 rt-PCR Result Negative Negative 03/08/2021 14:11 EDT [facility] Comment: This test has not [...] was performed using the andrea SARS-CoV-2 assay ([employer] on the Andrea 6800 System Performing Lab [address] [facility] 03/08/2021 14:11 EDT [facility] Swab 03/07/2021 10:0 0 EDT 03/07/2021 21:13 EDT Provider Outr Resulting Lab MICROBIOLOGY - GENERAL ORDERABLES [facility] [address] [place] [address] documented in this encounter Visit Diagnoses Not on filedocumented in this encounter Care Teams Wardrobe Mistress Relationship Specialty Start Date End Date Hung Willis MD PCP - General 03/22/15 documented as of this encounter
--- OUTSIDE RECORDS SUMMARY | 2024-02-19 07:06 | XMS_ITS | Encounter Summary ---
Author Organization [facility] Address [facility] [address] Care Team Providers Care Para Educator Name Role Phone Carol Randle APRN Primary Care Provider [phone] Reason for Visit * Reason Onset Date Comments Appointment 05/06/2023 Encounter Details Date Type Department Care Team (Late st Contact Info) Description 05/06/2023 Telephone [place] [phone] Nicolette Lucero Appointment Social History Tobacco Use Types Packs/Day Years [...] on file documented as of this encounter Miscellaneous Notes * Telephone Encounter - Nicolette Lucero - 05/06/2023 2:51 PM EST LVM and sent letter via [facility] portal about scheduling appointment(s), please schedule from recall(s) for Weight and Wellness. Please offer first available and place appointment on wait list. documented in this encounter Plan of Treatment [...] Minute Resistance Band Workout for Beginners (medium) https://www.Actus Digitalube.com/watch?v=cDDkdva87ao You should all have resistance bands from [...] holding the starting position of that movement. https://www.Actus Digitalube.com/watch?v=Q2cRZcJnPFT Seated Resistance Band Exercises https://www.Actus Digitalube.com/watch?v=KSUoKByDckc Simple Yoga-based strength training https://www.Actus Digitalube.com/watch?v=q6nlQAOAxTW Balance and Strength training on Stairs https://www.Actus Digitalube.com/watch?v=gBTHlOQUCRo TRACK food intake Lifestyle No Alfreda Delgado MD Note: BAYRON such as [employer] or Lose it, or pen and paper. [...] on filedocumented in this encounter Care Teams Para Educator Relationship Specialty Start Date End Date Carol Randle, STEEL WOOL MACHINE OPERATOR PCP - General Family Medicine 03/26/22 documented as of this encounter
--- OUTSIDE RECORDS SUMMARY | 2024-02-19 07:06 | XMS_ITS | Encounter Summary ---
Author Organization [facility] Address [address] [place] [address] Care Team Providers Care Talent Buyer Name Role Phone Hung Willis MD Primary Care Provider Unav ailable Encounter Details Date Type Department Care Team (Late st Contact Info) Description 07/06/2022 Lab Requisition [facility] Pathology & Laboratory Medicine - [facility] [address] [place] [address] Jori Cherry MD [address] [place] [address], [address] [place] [address] Other specified diseases of gallbladder Social History Tobacco Use Types Packs/Day Years [...] Priority Date/Time Associated Diagnosis Comments SURGICAL PATHOLOGY Today 07/06/2022 11 :54 EST Other specified diseases of gallbladder documented in this encounter Results * SURGICAL PATHOLOGY (07/06/2022 11:54 EST) Note to Patient The following pathology results have been interpreted by your pathologist and may be available to you before your health provider has had the opportunity to review them. Please allow time for your provider to receive these results and explore management options, if applicable. 07/11/2022 9:29 EST [facility] Final Diagnosis A. GALLBLADDER, CHOLECYSTECTOMY: - Chronic cholecystitis. 07/11/2022 9:29 [facility] Attestation There was significant resident/fellow involvement in the diagnostic evaluation of this case. By the signature below, the attending physician certifies that they have personally conducted a gross and/or microscopic examination of the described specimens and rendered or confirmed the above diagnosis. 07/11/2022 9:29 [facility] at 0929 Clinical History Biliary dyskinesia 07/11/2022 9:29 [facility] Gross Description A. Received in formalin labelled with proper patient identification (initials M, C) and gallbladder is a focally disrupted gallbladder with an attached segment of cystic duct (4.7 x 1.9 x 1.3 cm). A cystic duct lymph node is not present. The serosa is sherman to sherman purple, smooth, and glistening. The mucosa is green and velvety and the wall is 0.3 cm in thickness. The cystic duct lumen is patent and measures 0.3 cm in diameter. The cystic duct margin is inked blue. There are no choleliths present within the specimen. Two guest service representative sections and the en face cystic duct margin are submitted in A1. CHANTEL CORLEY MD 07/09/2022 13:51 07/11/2022 9:29 [facility] Resident/Raghu w: Chantel Corley MD 07/11/2022 9:29 [facility] Performing Lab [facility] 07/11/2022 9:29 [facility] Scanned Images 07/11/2022 9:29 [facility] Tissue ENTIRE GALLBLADDER / Unknown 07/06/2022 11:54 EST 07/06/2022 19:48 EST Jori Cherry MD PATHOLOGY ORDERABLES [facility] [address] [place] [address] documented in this encounter Visit Diagnoses Diagnosis Other specified diseases of gallbladder documented in this encounter Care Teams Talent Buyer Relationship Specialty Start Date End Date Hung Willis MD PCP - General 03/22/15 documented as of this encounter
--- OUTSIDE RECORDS SUMMARY | 2024-02-19 07:06 | XMS_ITS | Encounter Summary ---
Author Organization [facility] Address [address] [place] [address] Care Team Providers Care Acute Care Certified Nursing Assistant Name Role Phone Jesus Leyva MD Primary Care Provider [phone] Encounter Details Date Type Department Care Team (Late st Contact Info) Description 04/13/2010 Results Only [facility] ([facility] [address] [place] [address] Helen Harmon MD [address] [place] [phone] Social History Tobacco Use Types Packs/Day Years Used Date Smoking Tobacco: Never Assessed Sex and Gender Information Value Date Recorded Sex Assigned at Not on file Gender Identity Not on file Sexual Orientation Not on file documented as of this encounter Plan of Treatment Not on file documented as of this encounter Procedures Procedure Name Priority Date/Time Associated Diagnosis Comments SURGICAL PATHOLOGY Routine 04/13/2010 0:00 EDT documented in this encounter Results * SURGICAL PATHOLOGY (04/13/2010 0:00 EDT) Pathology Report: SURGICAL PATHOLOGY REPORT ? Reports generated via electronic interface contain original data; ? however they are lacking the format of the original report. ? Caution should be taken when reading/interpreti ng unformatted reports. ? Name: ? GIO, ANNALISA M ? Accession #: ? [id number] ? : ? 1980 (Age: 29) ??F ? Collect Date: ? 04/13/2010 ? Location: ? [facility] ? Receive Date: ? 04/13/2010 ? Provider: HELEN Moya ORALIA MD ? Copy to: ? Final Pathologic Diagnosis: ? Intrauterine contents, evacuation: ? 1. ?? Products of conception. ?- Vascularized chorionic villi. ?- Gestational endometrium with stromal decidualization. ?- tissue. ? Document reviewed and electronically signed by: ? Lisa Jimenez MD ? Report ??Date: 04/18/2010 17:04 ? By the signature above, the attending physician certifies that he/she has ? personally conducted a gross and/or microscopic examination of the described ? specimens and rendered or confirmed the above diagnosis. ? Specimen(s) Received: ? POC ? Clinical History: ? Miscarriage (SAB) approximately 6 wks POC? Gross Description: ? Received in formalin labelled Annalisa Maher is a 4.0 x 2.5 x 1.5 cm aggregate of gleason-red, focally hemorrhagic tissue fragments. ??No chorionic villi, gestational sac, or parts are grossly identified. ??The specimen is ? entirely submitted as (A1) through (A4). (Junior Delgado)/[facility] ? End of Report ? [facility] 04/13/2010 04/13/2010 12: 15 EDT Helen Harmon MD PATHOLOGY ORDERABLE S [facility] [address] [place] [address] documented in this encounter Visit Diagnoses Not on filedocumented in this encounter Care Teams Acute Care Certified Nursing Assistant Relationship Specialty Start Date End Date Jesus Leyva MD [address] [place] [address] PCP - General 04/14/10 03/21/15 documented as of this encounter
--- OUTSIDE RECORDS SUMMARY | 2024-02-19 07:06 | XMS_ITS | Encounter Summary ---
Author Organization [facility] Address [address] [place] [address] Care Team Providers Care Counter Waitress/Waiter Name Role Phone Unavailable Primary Care Provider Unavailabl e Encounter Details Date Type Department Care Team (Late st Contact Info) Description 05/18/2003 Results Only [facility] [address] [place] [address] George, September, [facility] [address] [place] [phone] Social History Tobacco Use Types Packs/Day Years Used Date Smoking Tobacco: Never Assessed Sex and Gender Information Value Date Recorded Sex Assigned at Not on file Gender Identity Not on file Sexual Orientation Not on file documented as of this encounter Plan of Treatment Not on file documented as of this encounter Procedures Procedure Name Priority Date/Time Associated Diagnosis Comments CYTOPATHOLOGY Routine 05/18/2003 0:00 EST documented in this encounter Results * CYTOPATHOLOGY (05/18/2003 0:00 EST) Pathology Report: CYTOPATHOLOGY REPORT Reports generated via electronic interface contain original data; however they are lacking the format of the original report. Caution should be taken when reading/interpreti ng unformatted reports. Name: ? ANNALISA MONROY ? Accession #: ? [id number] : ? 1980 (Age: 23) ??F ?Collect Date: ? 05/18/2003 Location: ? [facility] ? Receive Date: ? 05/21/2003 Provider: ?MINERVA PEREA CNM Copy to: ? Specimen/Source: ?ThinPrep Pap Test, Cervix/Endocervix Last Menstrual Period: ? 03/31/03 Menstrual/Pregnanc y Status: ? Previous Gynecologic Pathology: ? LSIL Treatment History: ? Cryotherapy: 04/25 Other: ? Additional clinical information: Pap wnl 09/24 ? SPECIMEN ADEQUACY ? Satisfactory for Evaluation - transformation zone component absent GENERAL CATEGORIZATION ? Negative for Intraepithelial Lesion or Malignancy ? Document reviewed and electronically signed by: ? VERA Foreman(ASCP) ? Report Date: ??05/26/2003 06:20 End of Report [facility] 05/18/2003 05/21/2003 Minerva Durán Abdiasvee CORYM PATHOLOGY ORDERABLES [facility] [address] [place] [address] documented in this encounter Visit Diagnoses Not on filedocumented in this encounter
--- OUTSIDE RECORDS SUMMARY | 2024-02-19 07:06 | XMS_ITS | Clinical Summary ---
Author Organization [facility] Address [address] [place] [id number] Care Team Providers Care Dietetics Teacher Name Role Phone Hung Willis MD Primary Care Provider Unav ailable Social History Tobacco Use Types Packs/Day Years Used Date Smoking Tobacco: Never Assessed Interpersonal Safety Answer Date Record ed Physically Hurt Never 01/24/2020 Verbally Threaten Not on file 01/24/2020 Sex and Gender Information Value Date Recorded Sex Assigned at Not on file Gender Identity Not on file Sexual Orientation Not on file Plan of Treatment Health Maintenance Due Date Last Done Comments Hepatitis B Vaccine (1 of 3 - 19+ 3-dose series) 05/15 COVID-19 Vaccine ( season) 2023 Hepatitis C Screen Completed 10/02/2021 Procedures Procedure Name Priority Date/Time Associated Diagnosis Comments HEPATITIS C AB W REFLEX TO HCV RNA BY PCR Routine 10/02/2021 16:20 EDT from Last 3 Months or Most Recently Relevant to Health Maintenance Results * HEPATITIS C AB W REFLEX TO HCV RNA BY PCR (10/02/2021 16:20 EDT) Hep C Antibody Negative Negative 10/04/2021 10:42 EDT [facility] Blood VENOUS BLOOD / Unknown 10/02/2021 16:20 EDT 10/03/2021 16:48 EDT Provider Outr Resulting Lab CHEMISTRY & BLOOD GAS ORDERABLES [facility] [address] [place] [address] from Last 3 Months or Most Recently Relevant to Health Maintenance Care Teams Dietetics Teacher Relationship Specialty Start Date End Date Hung Willis MD PCP - General 03/22/15
--- OUTSIDE RECORDS SUMMARY | 2024-02-19 07:06 | XMS_ITS | Clinical Summary ---
Author Organization [facility] Address [facility] [place] [address] Care Team Providers Care Proofer Name Role Phone Carol Randle APRN Primary Care Provider [phone] Allergies Active Allergy Reactions Criticality Noted Date Comments Adhesive Tape Rash 07/19/2019 Bupropion Anxiety 07/19/2019 Medications Medication Sig Dispensed Refills Start Date End Date Status fluticasone propionate (Flonase) 50 mcg/actuation [place], Suspension SPRAY TWO SPRAYS IN EACH NOSTRIL TWICE A DAY 04/01/2022 Active Symbicort 160-4.5 mcg/actuation HFA Aerosol Inhaler INHALE TWO PUFFS TWO TIMES A DAY RINSE, GARGLE, AND SPIT AFTER USING 04/01/2022 Active Spiriva Respimat 2.5 mcg/actuation Mist INHALE TWO PUFFS ONCE DAILY 04/04/2022 Active pantoprazole EC (Protonix) 40 mg Tablet, Delayed Release (E.C.) Take 40 mg by mouth 2 times daily. 01/26/2022 Active loratadine (Claritin) 10 mg Tablet Take 10 mg by mouth daily. 03/30/2022 Active folic acid (Folvite) 1 mg Tablet Take 1,000 mcg by mouth daily. 02/11/2022 Active b complex vitamins Capsule Take 1 capsule by mouth daily. Active melatonin 10 mg Capsule Take 10 capsules by mouth nightly. 05/02/2022 Active montelukast (Singulair) 10 mg Tablet Take 10 mg by mouth every evening. 01/26/2022 Active cholecalciferol (Vitamin D3) 1,000 unit Tablet Take 1,000 Units by mouth daily. 12/15/2021 Active ibuprofen (Advil) 800 mg Tablet Take 800 mg by mouth as needed. 03/10/2022 Active PARoxetine (Paxil) 30 mg tablet Take 30 mg by mouth daily. 10/05/2022 Active Active Problems Problem Noted Date Diagnosed Date EDDY (obstructive sleep apnea) 05/25/2022 Moderate asthma 05/07/2022 Hypertension 05/07/2022 Prediabetes 05/07/2022 Class 1 obesity in adult 05/07/2022 Anxiety 05/07/2022 Cigarette smoker 05/07/2022 History of kidney stones 05/07/2022 Post-traumatic stress disorder, unspecified 04/24 Raynaud's syndrome 05/07/2022 NAFLD (nonalcoholic fatty liver disease) 022 Depression 10/22/2016 Surgical menopause 04/25/2016 Endometriosis 04/27/2015 Resolved Problems Problem Noted Date Diagnosed Date Resolved Date Chronic pelvic pain in female 04/28/2015 11/26/2016 Family History Medical History Relation Comments Breast Cancer Paternal Grandmother Relation Status Comments Paternal Grandmother Social History Tobacco Use Types Packs/Day Years Used Date Smoking Tobacco: Every Day Cigarettes 1 20 Smokeless Tobacco: Never Tobacco Cessation:Ready to Q uit: Not Asked; Counseling Given: Not Answered Comments:trying to quit Alcohol Use Standard Drinks/Week Comments Yes 0 (1 standard drink = 0.6 oz pur e alcohol) occasional Sex and Gender Information Value Date Recorded Sex Assigned at Not on file Gender Identity Not on file Sexual Orientation Not on file Last Filed Vital Signs Vital Sign Reading Time Taken Comments Blood Pressure 131/87 05/07/2022 3:09 PM EST Pulse 88 05/07/2022 3:09 PM EST Temperature 36 ??C (96.8 ??F) 04/11/2022 9:30 PM EDT Respiratory Rate 18 04/11/2022 9:30 PM EDT Oxygen Saturation 97% 04/11/2022 9:30 PM EDT Inhaled Oxygen Concentration - - Weight 96.2 kg (212 lb) 10/18/2022 3:53 PM EDT h ome wt Height 169.5 cm (5' 6.75) 05/07/2022 3:09 PM ES T Body Mass Index 33.45 05/07/2022 3:09 PM EST Plan of Treatment Health Maintenance Due Date Last Done Comments Pneumococcal Vaccine: At-Ris k 5-64yrs (1 of 2 - PCV) 1988 HIV screen 2000 Hepatitis C Screening 2000 Hepatitis B vaccine (0-59 yrs) (1) 2001 Tdap adult 2001 Tetanus vaccine 2001 HPV test 2012 PAP Smear 2012 Breast Cancer Share Decision Needed 2022 Breast Cancer screening 2022 Covid-19 Vaccine (1 - season) 2023 Pre-DM monitoring (HgbA1C or FBG) 05/07/2023 022, 02/29/2016 Influenza (Flu) vaccine (1 o f 1 - Influenza standard series) 02/23/2024 Lipid Screening 05/07/2027 05/07/2022 Goals Goal Patient Goal Type Associated Problems Recent Progress Patient-Stated? Author Go for a walk for 30 minutes a day, 3 days a week Exercise Karma Sanders Engage in strength training 2 days per week, pick 1 video of your choice sent by Exercise No Karma Fleming Note: Using RT Bands, unconventional, bodyweight 30 Minute Resistance Band Workout for Beginners (medium) https://www.Wearable Securityube.com/watch?v=bXPwqca10jj You should all have resistance bands from [...] holding the starting position of that movement. https://www.Wearable Securityube.com/watch?v=A6pMUrMzHKK Seated Resistance Band Exercises https://www.Wearable Securityube.com/watch?v=KSUoKByDckc Simple Yoga-based strength training https://www.Wearable Securityube.com/watch?v=x7cwYVQLeRO Balance and Strength training on Stairs https://www.Wearable Securityube.com/watch?v=gBFranc[facility] Health [facility]o TRACK food intake Lifestyle No Alfread Delgado MD Note: BAYRON such as Nichepal or Lose it, or pen and paper. [...] quality carbohydrate Continue progress on quitting smoking Procedures Procedure Name Priority Date/Time Associated Diagnosis Comments LIPID PANEL (REFLEX DIRECT LDL) Routine 05/07/2022 4:28 PM EST NAFLD (nonalcoholic fatty liver disease) HC VENIPUNCTURE Routine 05/07/2022 4:28 PM EST NAFLD (nonalcoholic fatty liver disease) from Last 3 Months or Most Recently Relevant to Health Maintenance Results * Hemoglobin A1c (05/07/2022 4:28 PM EST) Hemoglobin A1c 5.6 4.3 - 5.6 % [facility] Comment: Reference Range: 4.3 - 5.6% 5.7 - 6.4% - Increased Risk of Developing Diabetes Mellitus >= 6.5% - Consistent with diagnosis of Diabetes Mellitus In the absence of hyperglycemia (i.e. plasma glucose > 200 mg/dL) or classic symptoms of hyperglycemia a repeat measurement of HbA1c should be performed on a separate sample to confirm the diagnosis. Diagnosis and Classification of Diabetes Mellitus, Diabetes Care 2013; 36: Suppl. 1, Y14-84 Estimated Average Glucose 113 mg/dL [facility] Comment: eAG equivalents for HbA1c percentages: HbA1c(%) ?eAG(mg/dL) 6.0 ?126 6.5 ?140 7.0 ?154 7.5 ?169 8.0 ?183 8.5 ?197 9.0 ?212 9.5 ?226 10.0 ? 240 Limitations: The eAG calculation has not been validated on women, individuals below 18 years old and above 70 years old, and individuals with hemoglobinopathies. Additional resources are available on the ADA website. Maurice CROWDER, Marcela J, Sasha R, et al. ??Translating the A1C assay into estimated average glucose values. ??Diabetes Care 2008:31(8):9283-8592. Blood 05/07/2022 4:28 PM EST 05/07/2022 4:57 PM EST Narrative Resulting Agency Comment Spec In Lab Kayleen Black MD CHEMISTRY ORDERABLES [facility] [place] [address] * Lipid Panel (Reflex Direct LDL) (05/07/2022 4:28 PM EST) Cholesterol, Total 218 mg/dL [facility] Comment: Lower Risk: <200 mg/dL Average Risk: 200-239 mg/dL Higher Risk: >lq=466 mg/dL Triglyceride 66 mg/dL [facility] Comment: Average Risk/Lower Risk: <150 mg/dL Borderline High Risk: 150-199 mg/dL High Risk: 200-499 mg/dL Very High Risk: >yy=979 mg/dL HDL Cholesterol 74 mg/dL [facility] Comment: Males: ?? Higher Risk: <40 mg/dL Females: ?? Higher Risk: <50 mg/dL LDL Cholesterol 131 mg/dL [facility] Comment: Lowest Risk: <100 mg/dL Lower Risk: 100-129 mg/dL Borderline High Risk: 130-159 mg/dL High Risk: 160-189 mg/dL Very High Risk: >zo=390 mg/dL Cholesterol/HDL Ratio 2.9 ratio [facility] Lipid Interpretation See Note [facility] Comment: Lipid management should be guided by a patient? s ASCVD risk, goals and preferences. ACC/AHA Guidelines recommend high intensity statin if clinical ASCVD or LDL greater than or equal to 190 mg/dL. http://COFCO.com/SMR-NEG-Uxioobjpf Adults aged 40-75 with LDL 70-189 mg/dL should have their 10 year ASCVD risk estimated with the ACC/AHA ASCVD risk book binder http://tools.acc.org/TCLFT-Tlxu-Lynlpryqu/ Statin should be discussed if risk greater than or equal to 7.5% in non-diabetics. With diabetes, moderate intensity statin is recommended if risk less than 7.5%, high intensity if risk greater than or equal to 7.5%. Annual lipid monitoring on statins is not necessary. Evaluate secondary causes of Triglycerides greater than 500 mg/dL or LDL greater than 190 mg/dL: See table 6 of ACC/AHA Guideline. Lifestyle modification is a critical component of ASCVD risk reduction. Blood 05/07/2022 4:28 PM EST 05/07/2022 4:57 PM EST Narrative Resulting Agency Comment Spec In Lab Kayleen Black MD CHEMISTRY ORDERABLES [facility] [place] [address] from Last 3 Months or Most Recently Relevant to Health Maintenance Advance Directives * Full Code (Latest Code Status on File) Date Activated Date Inactivated Comments 02/28/2016 4:43 PM 03/01/2016 12:26 PM Question Answer Comments Does patient have capacity to make decision: Yes * Full Code Date Activated Date Inactivated Comments 02/28/2016 10:48 AM 02/28/2016 4:41 PM Question Answer Comments Does patient have capacity to make decision: Yes Care Teams Proofer Relationship Specialty Start Date End Date Carol Randle, JORDY PCP - General Family Medicine 03/26/22
--- OUTSIDE RECORDS SUMMARY | 2024-02-19 07:06 | XMS_ITS | Referral Summary ---
Author Organization [facility] Address [address] [place] [address] Care Team Providers Care Slope Tender Name Role Phone Hung Willis MD Primary [...] Orientation Not on file Plan of Treatment Not on file Procedures Procedure Name Priority Date/Time Associated Diagnosis Comments HEPATITIS C AB W REFLEX TO HCV RNA BY PCR Routine 10/02/2021 16:20 EDT from Last 3 Months or Most Recently Relevant to Health Maintenance Results * HEPATITIS C AB W REFLEX TO HCV RNA BY PCR (10/02/2021 16:20 EDT) Hep C Antibody Negative Negative 10/04/2021 10:42 EDT [facility] Blood VENOUS BLOOD / Unknown 10/02/2021 16:20 EDT 10/03/2021 16:48 EDT Provider Outr Resulting Lab CHEMISTRY & BLOOD GAS ORDERABLES [facility] [address] [place] [address] from Last 3 Months or Most Recently Relevant to Health Maintenance Care Teams Slope Tender Relationship Specialty Start Date End Date Hung Willis MD PCP - General 03/22/15
--- OUTSIDE RECORDS SUMMARY | 2024-02-19 07:06 | XMS_ITS | Encounter Summary ---
Author Organization [facility] [place] [address] Care Team Providers Care Permit Review Assistant Name Role Phone Carol Randle APRN Primary Care Provider [phone] Encounter Details Date Type Department Care Team (Late st Contact Info) Description 10/23/2022 10:30 AM EDT TH Visit (TeleHealth) [facility] [place] [address] [facility] [place] [address] Adult BMI 33.0-33.9 kg/sq m Social History Tobacco Use Types Packs/Day Years [...] on file documented as of this encounter Patient Instructions * Patient Instructions* Taty Vickers RD - 10/23/2022 10:30 AM EDT Nutrition Goals: Establish exercise routine - continue walking, consider increasing to moderate intensity walking; continue resistance band exercise, focus on consistency, increasing muscle strength Establish consistent meal routine - 3 meals a day spaced evenly throughout day; explore 12 hour eating window Continue balanced plate - 1/2 plate vegetables, 1/4 plate protein, 1/4 plate high quality carbohydrate; choose protein at every eating event; use myBeijing TRS Information Technologynesspal to periodically check on calcium intake; documented in this encounter Progress Notes * Taty Vickers RD - 10/23/2022 10:30 AM EDT Nutrition Intervention for Weight Management Follow-up RD visit with CRISTINA Thurman 1980 Weight Today: Wt Readings from Last 3 Encounters: 10/18/22 96.2 kg (212 lb) 05/23/22 97.1 kg (214 lb) 05/07/22 97.3 kg (214 lb 6.4 oz) BMI Readings from Last 3 Encounters: 10/18/22 33.45 kg/m?? 05/23/22 33.77 kg/m?? 05/07/22 33.83 kg/m?? Pertinent Meds: Interview: things are going relatively well; working with therapist to prepare for hypnosis to quitsmoking - plan to quit smoking over the next 6 months; chose to study lung cancer for school to help change mindset around smoking Smokin/2 pack - 1 pack/day; 10 cigarettes/day; will visit therapist to set schedule for hypnosis to stop smoking, hoping to quit in next few months; boredom, stress smoker - opting for fiddling with pens, water Food Tracking: Typical Dietary Intake: 3-4x/day Wakeup 4am 5:30am B: overnight oats - rolled oats, tanzanian yogurt/protein powder, berries, banana occasionally, debbie seed, flax seed, milk 10:30-11:30am L: eggs, veggies - baby spinach, mixed ivey peppers, onions 4pm S: hummus and veggies OR nuts and dried fruit 6/7pm D: quiche - eggs, spinach, mushroom, ham, onion, cheese Vegetables - daily, fruit - daily Typical Beverages: water - 70-75oz; 1-2x/day coffee, 12oz; 1-2 12oz can polar seltzer, flavored; tea - herbal; alcohol - rarely Appetite/Hunger: [] Poor appetite r/t [x] Currently well-managed [] Not managed (see interview) Previous Goals: Goals ??? Exercise 3x per week (10-15 min per time) Try qigong and t'ai chi. ??? have protein-containing breakfast ??? Nutrition - 10/23/22 Nutrition Goals: ??? Establish exercise routine - continue walking, consider increasing to moderate intensity walking; continue resistance band exercise, focus on consistency, increasing muscle strength ??? Establish consistent meal routine - 3 meals a day spaced evenly throughout day; explore 12 houreating window ??? Continue balanced plate - 1/2 plate vegetables, 1/4 plate protein, 1/4 plate high quality carbohydrate; choose protein at every eating event; use myBeijing TRS Information Technologynesspal to periodically check on calcium intake; ??? self-awareness and goal setting Draft a Wellness Vision. ??? TRACK food intake BAYRON such as [employer]ium Golfpal or Lose it, or pen and paper. If using bayron or activity monitor, don't add in extra calories for the calories you burn. ??? work on NOT getting out of bed to eat Nutrition topics covered today: [x] Eating an appropriate amount of food for your body [] Grazing / skipping / restricting [x] Scheduled times / frequency of eating [] Reduce highly processed foods, refined carbohydrates, in favor of whole foods [] Reduce sweet taste in your diet (whether by sugar or non-nutritive sweeteners) [x] Increase fruits and non-starchy veggies [x] Increase fiber through f&v, nuts/seeds, whole grains, legumes (goal of 22-28 g/day women ; 28-34 g/day men) [x] Adequate protein intake (handout provided? [] ) Activity: walking 4-5x/week, 1 hour, 3 miles; resistant band exercises - 3x/week; reading books on basics of yoga/mustapha chi/pilates, 5k this weekend Nutrition Assessment: extended eating window; consistent meal routine; adequate intake; establishedexercise routine - work on increasing muscle mass; current smoker Barriers: none identified today Nutrition Goals updated today: Goals Addressed This Visit's Progress ??? Nutrition - 10/23/22 Nutrition Goals: ??? Establish exercise routine - continue walking, consider increasing to moderate intensity walking; continue resistance band exercise, focus on consistency, increasing muscle strength ??? Establish consistent meal routine - 3 meals a day spaced evenly throughout day; explore 12 houreating window ??? Continue balanced plate - 1/2 plate vegetables, 1/4 plate protein, 1/4 plate high quality carbohydrate; choose protein at every eating event; use myfitnesspal to periodically check on calcium intake; Monitor/Evaluate: Return in about 2 months (around 12/23/2022) for Jean-Claude HUDSON; health womens volleyball coach izzy . Aim for 5-10% weight loss from ABW x 3-6 months from initial visit Thank you Taty Vickers MS RDN LD 30 minutes were spent in visit today, including contact with patient, chart review, and documentation documented in this encounter Plan of Treatment Not on file documented as of this encounter Goals Goal Patient Goal Type Associated Problems Recent Progress Patient-Stated? Author TRACK food intake Lifestyle No Alfreda Delgado MD Note: BAYRON such as myBeijing TRS Information Technologynesspal or Lose it, or pen and paper. [...] as of this encounter Visit Diagnoses Diagnosis Adult BMI 33.0-33.9 kg/sq m Body Mass Index 33.0-33.9, adult documented in this encounter Care Teams Permit Review Assistant Relationship Specialty Start Date End Date Carol Randle APRN PCP - General Family Medicine 03/26/22 documented as of this encounter
--- OUTSIDE RECORDS SUMMARY | 2024-02-19 07:06 | XMS_ITS | Encounter Summary ---
Author Organization [facility] Address [facility] [place] [address] Care Team Providers Care Billing Typist Name Role Phone Carol Randle APRN Primary Care Provider Reason for Visit * Reason Onset Date Comments Appointment 02/26/2023 Encounter Details Date Type Department Care Team (Late st Contact Info) Description 02/26/2023 Telephone [place] [phone] Alfreda Dawkins MD [facility] [place] [address] Appointment Social History Tobacco Use Types Packs/Day [...] encounter Miscellaneous Notes * Telephone Encounter - Alfreda Dawkins MD - 02/26/2023 11:47 AM EDT Patient did not show for appointment today. I called her and she was having problems with internet connection and will need to reschedule. She did not have any concerns that needed to be addressed today. documented in this encounter Plan of Treatment [...] Minute Resistance Band Workout for Beginners (medium) https://www.[employer] Industries[employer].com/watch?v=vJWzfpk83er You should all have resistance bands from [...] holding the starting position of that movement. https://www.[employer].com/watch?v=F4mUSnXiGFV Seated Resistance Band Exercises https://www.[employer].com/watch?v=KSUoKByDckc Simple Yoga-based strength training https://www.[employer].com/watch?v=z1xkRYNPtXL Balance and Strength training on Stairs https://www.[employer].com/watch?v=gBTHlOQUCRo TRACK food intake Lifestyle No Alfreda Delgado MD Note: BAYRON such as [employer] or Lose it, or pen and paper. [...] Vision. Nutrition - 03/20/23 Lifestyle No Taty Vickers, BECCA Note: Nutrition Goals: Return to exercise routine [...] on filedocumented in this encounter Care Teams Billing Typist Relationship Specialty Start Date End Date Carol Randle, AUTOMOBILE SPRING REPAIRER PCP - General Family Medicine 03/26/22 documented as of this encounter
--- OUTSIDE RECORDS SUMMARY | 2024-02-19 07:06 | XMS_ITS | Encounter Summary ---
Author Organization [facility] Address [address] [place] [address] Care Team Providers Care Retaining Room Cutter Name Role Phone Hung Willis MD Primary Care Provider Unav ailable Encounter Details Date Type Department Care Team (Late st Contact Info) Description 04/10/2023 Lab Requisition [facility] Pathology & Laboratory Medicine - [facility] [address], [place] [id number] Outr Resulting Lab, Provider Social History Tobacco [...] Procedure Name Priority Date/Time Associated Diagnosis Comments QUANTIFERON MITOGEN (PERFORMABLE) Today 04/09/2023 16:20 EDT QUANTIFERON TB2 (PERFORMABLE) Today 04/09/2023 16:20 EDT QUANTIFERON TB1 (PERFORMABLE) Today 04/09/2023 16:20 EDT QUANTIFERON NIL (PERFORMABLE) Today 04/09/2023 16:20 EDT QUANTIFERON INTERPRETATION (PERFORMABLE) Today 04/09/2023 16:20 EDT QUANTIFERON TB GOLD PLUS Routine 04/09/2023 16:20 EDT documented in this encounter Results * QUANTIFERON INTERPRETATION (PERFORMABLE) (04/09/2023 16:20 EDT) [facility] Quantiferon Interpretation Negative Negative 04/11/2023 11:45 EDT [facility] Comment:No interferon-gamma response to M. tuberculosis antigens was detected. ??Infection with M. tuberculosis is unlikely. A single negative result does not exclude infection with M. tuberculosis. ??In patients at high risk for M. tuberculosis infection, a second test should be considered. TB1 Ag minus Nil 0.00 IU/ml 04/11/20 11:45 EDT [facility] TB2 Ag minus Nil 0.01 IU/mL 04/11/20 11:45 EDT [facility] Blood VENOUS BLOOD / Unknown 04/09/2023 16:20 EDT 04/11/2023 11:38 EDT Narrative [facility] - 04/11/2023 11:45 EDT Results were obtained with the [employer] QuantiFERON-TB Gold Plus CLIA. New platform in use 03/01/2021 Provider Outr Resulting Lab IMMUNOLOGY A ND SEROLOGY ORDERABLES Performing Organization Address City/[facility] Co de Phone Number [facility] [address] [place] [address] * QUANTIFERON MITOGEN (PERFORMABLE) (04/09/2023 16:20 EDT) Blood VENOUS BLOOD / Unknown 04/09/2023 16:20 EDT 04/10/2023 17:15 EDT Provider Outr Resulting Lab IMMUNOLOGY A ND SEROLOGY ORDERABLES [facility] [address] [place] [address] * QUANTIFERON TB2 (PERFORMABLE) (04/09/2023 16:20 EDT) Blood VENOUS BLOOD / Unknown 04/09/2023 16:20 EDT 04/10/2023 17:15 EDT Provider Outr Resulting Lab IMMUNOLOGY A ND SEROLOGY ORDERABLES Performing Organization Address City/[facility]/ZIP Co de Phone Number [facility] [address] [place] [address] * QUANTIFERON TB1 (PERFORMABLE) (04/09/2023 16:20 EDT) Blood VENOUS BLOOD / Unknown 04/09/2023 16:20 EDT 04/10/2023 17:15 EDT Provider Outr Resulting Lab IMMUNOLOGY A ND SEROLOGY ORDERABLES Performing Organization Address [facility] Co de Phone Number [facility] [address] [place] [address] * QUANTIFERON NIL (PERFORMABLE) (04/09/2023 16:20 EDT) Blood VENOUS BLOOD / Unknown 04/09/2023 16:20 EDT 04/10/2023 17:15 EDT Provider Outr Resulting Lab IMMUNOLOGY A ND SEROLOGY ORDERABLES Performing Organization Address [facility] Co de Phone Number [facility] [address] [place] [address] documented in this encounter Visit Diagnoses Not on filedocumented in this encounter Care Teams Retaining Room Cutter Relationship Specialty Start Date End Date Hung Willis MD PCP - General 03/22/15 documented as of this encounter
--- OUTSIDE RECORDS SUMMARY | 2024-02-19 07:06 | XMS_ITS | Encounter Summary ---
Author Organization [facility] Address [address] [place] [address] Care Team Providers Care Supervisory Historian Name Role Phone Unavailable Primary Care Provider Unavailabl e Encounter Details Date Type Department Care Team (Late st Contact Info) Description 02/29/2004 Results Only [facility] - Maple conversion [address] [place] [address] George, September, [facility] [address] [place] [phone] Social History Tobacco Use Types Packs/Day Years Used Date Smoking Tobacco: Never Assessed Sex and Gender Information Value Date Recorded Sex Assigned at Not on file Gender Identity Not on file Sexual Orientation Not on file documented as of this encounter Plan of Treatment Not on file documented as of this encounter Procedures Procedure Name Priority Date/Time Associated Diagnosis Comments CYTOPATHOLOGY Routine 02/29/2004 0:00 EDT documented in this encounter Results * CYTOPATHOLOGY (02/29/2004 0:00 EDT) Pathology Report: CYTOPATHOLOGY REPORT Reports generated via electronic interface contain original data; however they are lacking the format of the original report. Caution should be taken when reading/interpreti ng unformatted reports. Name: ? ANNALISA MONROY ? Accession #: ? [id number] : ? 1980 (Age: 23) ??F ?Collect Date: ? 02/29/2004 Location: ? [facility] ? Receive Date: ? 03/02/2004 Provider: ?MINERVA VAZQUEZ CNM Copy to: ? Specimen/Source: ?ThinPrep Pap Test, Cervix/Endocervix Last Menstrual Period: ? 03/31/03 Menstrual/Pregnanc y Status: ? Post Treatment History: ? Cryotherapy: 04/25 Other: ? HPVA - HPV testing requested if ASC-US on the current ThinPrep Pap test. ? SPECIMEN ADEQUACY ? Satisfactory for Evaluation - transformation zone component absent GENERAL CATEGORIZATION ? Negative for Intraepithelial Lesion or Malignancy INTERPRETATION ? Reactive cellular changes associated with inflammation present (includes repair). ? Document reviewed and electronically signed by: ? DOREEN ANNE MD ? Report Date: ??03/07/2004 17:08 End of Report GABBI HASSAN 02/29/2004 03/02/2004 Minerva Vazquez CN PATHOLOGY ORDERABLES Performing Organization Address City/State/[facility] Co de Phone Number GABBI HASSAN [address] [place] [address] documented in this encounter Visit Diagnoses Not on filedocumented in this encounter
--- OUTSIDE RECORDS SUMMARY | 2024-02-19 07:06 | XMS_ITS | Encounter Summary ---
Author Organization [facility] Address [address] [place] [address] Care Team Providers Care Scrap Materials Buyer Name Role Phone Jesus Leyva MD Primary Care Provider [phone] Encounter Details Date Type Department Care Team (Latest Contact Info) Description 03/17/2015 14:40 EDT - 03/17/2015 23:59 EDT Hospital Encounter [address] [address] Unknown, Provider, Discharge Disposition: Home or Self Care Social History Tobacco Use Types Packs/Day Years Used Date Smoking Tobacco: Never Assessed Sex and Gender Information Value Date Recorded Sex Assigned at Not on file Gender Identity Not on file Sexual Orientation Not on file documented as of this encounter Discharge Disposition Disposition Code Departure Means Destination Home or Self Correction documented in this encounter Plan of Treatment Not on file documented as of this encounter Visit Diagnoses Not on filedocumented in this encounter Care Teams Scrap Materials Buyer Relationship Specialty Start Date End Date Jesus Leyva MD [address] [place] [address] PCP - General 04/14/10 03/21/15 documented as of this encounter
--- OUTSIDE RECORDS SUMMARY | 2024-02-19 07:06 | XMS_ITS | Encounter Summary ---
Author Organization [facility] Address [address] [place] [address] Care Team Providers Care Bowl Attendant Name Role Phone Unavailable Primary Care Provider Unavailabl e Encounter Details Date Type Department Care Team ([facility] st Contact Info) Description 10/11/2000 Results Only [facility] - Maple conversion [address] [place] [address] Volodymyr Plascencia MD [address] [place] [id number] Social History Tobacco Use Types Packs/Day Years Used Date Smoking Tobacco: Never Assessed Sex and Gender Information Value Date Recorded Sex Assigned at Not on file Gender Identity Not on file Sexual Orientation Not on file documented as of this encounter Plan of Treatment Not on file documented as of this encounter Procedures Procedure Name Priority Date/Time Associated Diagnosis Comments CYTOPATHOLOGY Routine 10/11/2000 0:00 EDT documented in this encounter Results * CYTOPATHOLOGY (10/11/2000 0:00 EDT) Pathology Report: CYTOPATHOLOGY REPORT Reports generated via electronic interface contain original data; however they are lacking the format of the original report. Caution should be taken when reading/interpreti ng unformatted reports. Name: ? ANNALISA MONROY ? Accession #: ? [id number] : ? 1980 (Age: 20) ??F ?Collect Date: ? 10/11/2000 Location: ? [facility] ? Receive Date: ? 10/14/2000 Provider: ?VOLODYMYR PLASCENCIA MD Copy to: ? Specimen/Source: ?ThinPrep Pap Test, Endocervix Last Menstrual Period: ? 09/02/00 Hormonal/Contracep tive Status: ? Yes ? SPECIMEN ADEQUACY ? Satisfactory for evaluation. GENERAL CATEGORIZATION ? Within Normal Limits ? Document reviewed and electronically signed by: ? VERA Styles(ASCP) ? Report Date: ??10/16/2000 13:10 End of Report GABBI HASSAN 10/11/2000 10/14/2000 Volodymyr Plascencia MD PATHOLOGY ORDERABLES GABBI HASSAN [address] [place] [address] documented in this encounter Visit Diagnoses Not on filedocumented in this encounter
--- OUTSIDE RECORDS SUMMARY | 2024-02-19 07:06 | XMS_ITS | Encounter Summary ---
Author Organization [facility] Address [facility] [place] [address] Care Team Providers Care Sales Order Processor Name Role Phone Carol Randle APRN Primary Care Provider [phone] Encounter Details Date Type Department Care Team (Latest Contact Info) Description 10/18/2022 10:00 AM EDT TH Visit (TeleHealth) [place] [phone] Alfreda Delgado MD [facility] [address] [facility] [place] [address] Class 1 obesity with serious comorbidity and body mass index (BMI) of 33.0 to 33.9 in adult, unspecified obesity type Social History Tobacco Use Types Packs/Day Years [...] on file documented as of this encounter Last Filed Vital Signs Vital Sign Reading Time Taken Comments Blood Pressure - - Pulse - - Temperature - - Respiratory Rate - - Oxygen Saturation - - Inhaled Oxygen Concentration - - Weight 96.2 kg (212 lb) 10/18/2022 3:53 PM EDT h ome wt Height - - Body Mass Index 33.45 05/07/2022 3:09 PM EST documented in this encounter Progress Notes * Alfreda Delgado MD - 10/18/2022 10:00 AM EDT [facility] Healthy Living Clinic Visit ( ) IN CLINIC ( xx) video visit ( ) phone visit Patient Name: Milagros Maher Date of : 1980 Age: 42 y.o. Carol Randle APRN is PCP. Thank you for referring Milagros Maher to the [facility] Healthy Living Clinic for consultation regarding obesity. CHIEF COMPLAINT: Follow-up for Obesity Pathway:obesity medicine INTERVAL HISTORY / PROGRESS TOWARD GOALS: [x] I reviewed past / interim records including notes and labs. This is a folllow up [facility] visit for this 42 y.o. y.o. patient who I saw in Weight and Wellness clinic for the first time on 05/23/2022 (video visit). From first visit: WHO Class 1 obesity BMI 33.7 WEIGHT 214 lbs. Medical problems including: ELEVATED FASTING GLUCOSE,asthma, anxiety, NAFLD, SMOKER, s/p total hyst (she says not on HRT because smoker), PTSD. EDDY, treated. Food insecurity. Now s/p katrin. Past Medical History 05/22/2022 Have you had any of the following medical problems? High blood pressure, GERD (acid reflux), Fatty liver, Previous abdominal surgeries, Kidney stones And other problems per problem list and PMHx. Contraception:HYST Issues identified at first visit ??include:?Eating patterns:??[x]?emotional eating ?[x ] mindless eating ?[x]?Grazing/snacking, usually does not eat real meals ?[x]?skips meals + gets out of bed to eat a few times per week. + eating after supper. + cravings for sweets. Overall low appetite. Work: taking college classes In household: who is disabled and 18 year old. Her Goal: 160-165 lbs. Last visit with me 07/12/2022: does not know wt. just had katrin. Reports NOT eating when gets out ofbed at night.I discussed our classes, ordered labs to be done fasting in [facility]. NOT anxious to take anti-obesity medication. Cancelled visit with me in August, was sick. ?? Last dietitian visit: (reviewed): [place] 08/21/2022. Last visit with health job coach Bertin Bobo: 08/06/2021. Referrals done other than dietitian and health job coach: ( ) [facility] emotional eating group ( ) Healthy Lifestyles Programs ( ) one to one psychologist help ( ) bariatric surgery info session ( ) sleep clinic Potentially obesogenic meds currently taking: paxil. 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 Made some good changes: Eating protein every meal, logging food intake,Walking at least 4 Times per week, will Do 5K. Using resistance Band at least two times per week Has been told she has osteopenia. Says now off of valsartan, BP being watched. Looking into yoga, pilates, etc. Eating breakfast every day, had been skipping. Control of hunger and appetite: Getting better. Used to drink coffee all day,now 1-2 cups per day. In coffee: coffee mate creamer. NOT getting out of bed to eat. No longer having cravings for sweets. Mentions: did a lot of studying this semester. Smokin/2 per pack per day, had been one PPD. Met with counsellor thru PCP about smoking, might try hypnosis. Cannot take wellbutrin. RE: meds to help with weight loss. NOT interested at present. Wt at home 212 lbs, thinks had been down to 208 at home. Labs: Says did at [facility], she got results , thinks were OK. (I don't see them, will ask RN to get results). Goals ??? Exercise 3x per week (10-15 min per time) Try qigong and t'ai chi. ??? have protein-containing breakfast ??? Nutrition - 08/21/22 Nutrition Goals: ??? Establish exercise routine - continue walking, consider increasing to moderate intensity walking; continue resistance band exercise, focus on consistency ??? Establish consistent meal routine - 3 meals a day spaced evenly throughout day; ??? Continue balanced plate - 1/2 plate vegetables, 1/4 plate protein, 1/4 plate high quality carbohydrate; choose protein at every eating event; increasing vegetable intake; ??? Consider reducing coffee intake ??? self-awareness and goal setting Draft a Wellness Vision. ??? TRACK food intake BAYRON such as Mamina Shkola or Lose it, or pen and paper. If using bayron or activity monitor, don't add in extra calories for the calories you burn. ??? work on NOT getting out of bed to eat ROS: as above (x ) they reported no new symptoms other than as above VITAL SIGNS: (x video visit, Wt 96.2 kg (212 lb) Comment: home wt LMP 01/22/2016 Comment: irregular BMI 33.45 kg/m?? . Last 5 weight values: Wt Readings from Last 5 Encounters: 05/23/22 97.1 kg (214 lb) 05/07/22 97.3 kg (214 lb 6.4 oz) 04/11/22 97.5 kg (215 lb) 11/26/16 82.4 kg (181 lb 10.5 oz) 10/22/16 82.4 kg (181 lb 9.6 oz) PHYSICAL EXAM: video visit. Gen: Alert and appropriate, NAD. Psych: NL affect today LABS: see below. Liver Fibrosis Score (Fib 4) was 0.47 at 09/19/2022 5:27 AM Risk of Fibrosis Low Intermediate High NAFLD Less than 1.3 1.3-2.67 Greater than 2.67 Hepatitis C Less than 1.45 1.45-3.25 Greater than 3.25 SUMMARY OF VISIT AND RECOMMENDATIONS: Medical issues and plan: Class 1 Obesity: with elevated fasting glucose and other co-morbidites: ?? Milagros M Gunnar was seen in follow up for ongoing obesity, not yet at treatment goal. Weightdown 2 lbs since first visit in Apr 2022. She has made positive lifestyle changes as above. Discussed healthy diet and activity. Declines anti-obesity meds at present; discussed. ?? Aware that I am retiring, See new QUETA NOGUEIRA in the summer. Contact QUETA prn before that. SMOKING: working with PCP's office on quitting. Has cut down. NAFLD: Sees Patrick Laguerre. ?? Healthy Lifestyle recommendations to promote healthy weight EDDY: ?? Continue CPAP as prescribed Vitamin D deficiency: Taking vit D. Labs/Tests ordered today: Non. I will request results from [facility] I spent 30 minutes in care of this patient today including review of records, counselling and documentation. PREVIOUS LABS Lab Results Component Value Date CHLPL 218 05/07/2022 Lab Results Component Value Date HDL 74 05/07/2022 Lab Results Component Value Date LDLCHOL 131 05/07/2022 Lab Results Component Value Date TRIG 66 05/07/2022 Lab Results Component Value Date CHOLHDL 2.9 05/07/2022 Lab Results Component Value Date HA1C 5.6 05/07/2022 Lab Results Component Value Date NA 137 02/29/2016 K 3.9 02/29/2016 CL 103 02/29/2016 CO2 22 02/29/2016 BUN 6 (L) 02/29/2016 CREATININE 0.71 02/29/2016 GLUCOSE 116 02/29/2016 CALCIUM 8.5 02/29/2016 Lab Results Component Value Date ALT 28 05/07/2022 AST 21 05/07/2022 ALKPHOS 88 05/07/2022 BILITOT 0.2 05/07/2022 BILIDIR 0.1 05/07/2022 ALBUMIN 4.6 05/07/2022 PROT 7.3 05/07/2022 No results found for: 25OHVITD Lab Results Component Value Date TSH 2.48 10/24/2015 documented in this encounter Plan of Treatment Not on file documented as of this encounter Goals Goal Patient Goal Type Associated Problems Recent Progress Patient-Stated? Author TRACK food intake Lifestyle No Alfreda Delgado MD Note: BAYRON such as [employer]/Opal or Lose it, or pen and paper. [...] Nutrition - 03/20/23 Lifestyle No Taty Vickers, RD Note: Nutrition Goals: Return to exercise [...] as of this encounter Visit Diagnoses Diagnosis Class 1 obesity with serious comorbidity and body mass index (BMI) of 33.0 to 33.9 in adult, unspecified obesity type documented in this encounter Care Teams Sales Order Processor Relationship Specialty Start Date End Date Carol Randle APRN PCP - General Family Medicine 03/26/22 documented as of this encounter
--- OUTSIDE RECORDS SUMMARY | 2024-02-19 07:06 | XMS_ITS | Encounter Summary ---
Author Organization [facility] Address [address] [place] [address] Care Team Providers Care Grinder Gear Name Role Phone Hung Willis MD Primary Care Provider Unav ailable Encounter Details Date Type Department Care Team (Late st Contact Info) Description 08/20/2019 Lab Requisition [facility] Pathology & Laboratory Medicine - [facility] [address] [place] [address] Ximena Gunderson MD [address] [place] [address] [address] [place], [place] [id number] Benign lipomatous neoplasm of other sites Social History Tobacco Use Types Packs/Day Years Used Date Smoking Tobacco: Never Assessed Sex and Gender Information Value Date Recorded Sex Assigned at Not on file Gender Identity Not on file Sexual Orientation Not on file documented as of this encounter Plan of Treatment Not on file documented as of this encounter Procedures Procedure Name Priority Date/Time Associated Diagnosis Comments SURGICAL PATHOLOGY Today 08/19/2019 10 :20 EST Benign lipomatous neoplasm of other sites documented in this encounter Results * SURGICAL PATHOLOGY (08/19/2019 10:20 EST) Amendment Comment This is an amended report which replaces the original pathology report issued on 08/24/2019. This amendment is being issued to correct the attestation. There is no change to the diagnosis. 10/19/2019 13:23 [facility] Final Diagnosis A. SOFT TISSUE OF LEFT POSTERIOR SHOULDER, EXCISION: - Lipoma. 10/19/2019 13:23 [facility] Amendment electronically signed by Khushboo Mohan MD on 10/19/2019 at 1323 at 1736 Attestation There was significant resident/fellow involvement in the diagnostic evaluation of this case. By the signature below, the attending physician certifies that they have personally conducted a gross and/or microscopic examination of the described specimens and rendered or confirmed the above diagnosis. 10/19/2019 13:23 [facility] Amendment electronically signed by Khushboo Mohan MD on 10/19/2019 at 1323 at 1736 Clinical History Lipoma of left posterior shoulder Z32 10/19/2019 13:23 [facility] Gross Description A. Received in formalin labelled with proper patient identification (initials M, C) and left posterior lipoma shoulder, single suture superior double suture anterior is an ovoid yellow portion of adipose tissue with a single suture designating superior and a double suture designating anterior (89.5 g, 9.0 cm medial to lateral x 7.4 cm superior to inferior x 2.9 cm anterior to posterior). The tissue is partially encapsulated by a sherman-white, thin, semi translucent membrane. The outer surface is inked. The specimen is serially sectioned from medial to lateral to reveal pale yellow-gleason cut surfaces devoid of hemorrhage or necrosis. Laborer Cheesemaking sections to include each margin are submitted in A1-A5. INK ORDONEZ Yellow- anterior Black- posterior Blue- superior Green- inferior Red- medial Zapata- lateral Tequila Oden 08/20/2019 9:48 10/19/2019 13:23 [facility] Resident/Raghu w: Rose Zepeda MD 10/19/2019 13:23 [facility] Scanned Images 10/19/2019 13:23 [facility] Tissue SOFT TISSUE / Unknown 08/19/2019 10:20 EST 08/20/2019 9:04 EST Ximena Gunderson MD PATHOLOGY [facility] [address] [place] [address] documented in this encounter Visit Diagnoses Diagnosis Benign lipomatous neoplasm of other sites documented in this encounter Care Teams Grinder Gear Relationship Specialty Start Date End Date Hung Willis MD PCP - General 03/22/15 documented as of this encounter
--- OUTSIDE RECORDS SUMMARY | 2024-02-19 07:06 | XMS_ITS | Encounter Summary ---
Author Organization [facility] Address [facility] [place] [address] Care Team Providers Care Rod Drawer Name Role Phone Carol Randle APRN Primary Care Provider Reason for Visit * Consultation (Routine) - Closed Specialty Diagnoses / Procedures Referred By Contsagar t Referred To Contact Dermatology Diagnoses Skin lesion Rosanna Godinez MD [address] [place] [address] [facility] [address] [place] [address] Referral ID Status Reason Start Date Expiration Date V isits Requested Visits Authorized [id number] Closed Consult, Test & Treat PCP Updated and/or Approved 08/21/2022 08/21/2023 12 12 Encounter Details Date Type Department Care Team (Late st Contact Info) Description 02/19/2023 3:40 PM EDT Office Visit Dermatology at [facility] [address] [place] [address] Jesus Garza MD [facility] [place] [address] Neoplasm of unspecified behavior of bone, soft tissue, and skin; Seborrheic keratoses, inflamed Social History Tobacco Use Types Packs/Day Years [...] as of this encounter Progress Notes * Jesus Garza MD - 02/19/2023 3:40 PM EDT Images from the original note were not included. DEPARTMENT OF DERMATOLOGY Medical D[facility]atology Clinic Note Provider: Jesus Garza MD Patient's preferred name Milagros Preferred contact method for results [x]Phone [x]myD-H []Letter Detailed phone message OK? Yes Are there any other people with whom we may discuss your care? Brian Maher Past Medical History Date, location, treatment Melanoma No Dysplastic nevi No SCC No BCC No AKs No UV Exposure & Protection N Other relevant past medical history - Cold sores - High blood pressure - Depression - Glaucoma - Allergies/Hay fever - Asthma - Bronchitis Family History Details Melanoma ? NMSC ? 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 Patient is referred to the clinic at the request of Rosanna Godinez for a concerning skin lesion located on the nose. Patient reports the following: - Lesion on the nose has been steadily increasing in size prior to today's visit. - Moles on right shoulder. One of which has some crust on it. Review of Systems: General: Feeling well. Skin: No other skin concerns. Medications: Reviewed in eD-H Allergies: Reviewed in eD-H Skin Examination: Focused skin examination of the face, back, and right shoulder was normal with the exception of thefindings below. Assessment/Plan #. Benign Nevi - Scattered medium brown, evenly pigmented macules and papules on the with reassuring pigment pattern on dermoscopy on the right shoulder x 3 and right nasal tip - Discussed benign nature of lesions and provided reassurance. - Will continue to monitor nevus on right nasal ala: 9 mm pink to gleason soft papule - RTC in 6 months; will coordinate with FBSE Figure 1 Photo(s) taken and charted with patient's verbal consent. Other: N/A RTC: 6 months for nevus follow up and FBSE []Note routed to assistant corporate secretary [x]Recall placed in scheduling system []Appointment scheduled at checkout Scribe attestation: Gregory Carcamo has performed the documentation for this encounter in the presence of and acting as a scribe for Jesus Garza MD. I performed the above scribed service and agree with the accuracy of the documentation in this encounter. Reviewed and signed by: Jesus Garza MD Dermatology [facility] Patient seen and evaluated with staff erosion control coordinator: Nita Wren MD Department of Dermatology [facility] * Nita Wren MD - 02/19/2023 3:40 PM EDT I directly supervised Dr. Garza during this office visit. Dr. Garza presented the history and physical exam to me. I, then, saw and examined this patient with Dr. Garza. We reviewed the history and pertinent details and I confirmed the physical findings. I agree with the details of the history and physical exam as documented in Dr. Garza's note. NITA WREN MD Staff Physician documented in this encounter Plan of Treatment Scheduled Referrals [...] video of your choice sent by Exercise Karma Sanders Note: Using RT Bands, unconventional, bodyweight 30 Minute Resistance Band Workout for Beginners (medium) https://www.Agendizeube.com/watch?v=bOTdaki49us You should all have resistance bands from [...] holding the starting position of that movement. https://www.Agendizeube.com/watch?v=C8pQScRlIER Seated Resistance Band Exercises https://www.Agendizeube.com/watch?v=KSUoKByDckc Simple Yoga-based strength training https://www.Agendizeube.com/watch?v=l2kqCUBMbDX Balance and Strength training on Stairs https://www.Agendizeube.com/watch?v=gBTHlOQUCRo TRACK food intake Lifestyle No Alfreda Delgado MD Note: BAYRON such as [employer] or Lose it, or pen and paper. [...] as of this encounter Visit Diagnoses Diagnosis Neoplasm of unspecified behavior of bone, soft tissue, and skin Seborrheic keratoses, inflamed documented in this encounter Care Teams Rod Drawer Relationship Specialty Start Date End Date Carol Randle, JORDY PCP - General Family Medicine 03/26/22 documented as of this encounter
--- OUTSIDE RECORDS SUMMARY | 2024-02-19 07:06 | XMS_ITS | Encounter Summary ---
Author Organization [facility] [place] [address] [place] [address] Care Team Providers Care Professional Development Director Name Role Phone Carol Randle APRN Primary Care Provider [phone] Encounter Details Date Type Department Care Team (Late st Contact Info) Description 01/01/2023 11:00 AM EDT TH Visit (TeleHealth) [place] [address] [facility] [place] [address] Adult BMI 33.0-33.9 kg/sq m Social History [...] encounter Patient Instructions * Patient Instructions* Taty Vickers, BECCA - 01/01/2023 11:00 AM EDT Nutrition Goals: Return to exercise routine - continue walking as able, consider increasing to moderate intensity walking; continue yoga and resistance band exercise; explore exercise options during work; Continue to choose protein at every eating event, tracker 70-100g of protein per day Continue balanced plate - 1/2 plate vegetables, 1/4 plate protein, 1/4 plate high quality carbohydrate; use myfitnesspal to periodically check on calcium intake; fiber 22-28g/day Continue progress on quitting smoking documented in this encounter Progress Notes * Taty Vickers RD - 01/01/2023 11:00 AM EDT Nutrition Intervention for Weight Management Follow-up RD visit with CRISTINA Thurman 1980 Weight Today: Wt Readings from Last 3 Encounters: 10/18/22 96.2 kg (212 lb) 05/23/22 97.1 kg (214 lb) 05/07/22 97.3 kg (214 lb 6.4 oz) BMI Readings from Last 3 Encounters: 10/18/22 33.45 kg/m?? 05/23/22 33.77 kg/m?? 05/07/22 33.83 kg/m?? 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; Smokin-9cigarettes/day; hypnotized once for smoking, have second appointment this week; Food Tracking: not using consistently, myfitnesspal; calcium and protein intake within range per patient Typical Dietary Intake: 3x/day 8am B: overnight oats OR apples with peanut butter OR eggs with spinach/kale, peppers, onions, mushrooms 1pm L: chicken drumsticks, fresh herbs, vegetables if available 6pm D: blt Vegetables - daily, fruit - daily Typical Beverages: water; coffee 1-2x/day; seltzer 2-3/day; cold water infusions/tea; Appetite/Hunger: [] Poor appetite [x] Currently well-managed [] Not managed (see interview) Nutrition topics covered today: [x] Eating an appropriate amount of food for your body [] Grazing / skipping / restricting [] Scheduled times / frequency of eating [] [...] intake (handout provided? [] ) Activity: walking up and down stairs; walking difficult in hot/humid weather; yoga 2-3x/week; Nutrition Assessment: adequate eating window; consistent meal routine; reduced exercise - aerobic; current smoker; reduced vegetable intake - lunch; Nutrition Goals updated today: Goals Addressed This Visit's Progress Nutrition - 01/01/23 Nutrition Goals: Return to exercise routine - continue walking as able, consider increasing to moderate intensity walking; continue yoga and resistance band exercise; explore exercise options during work; Continue to choose protein at every eating event, tracker 70-100g of protein per day Continue balanced plate - 1/2 plate vegetables, 1/4 plate protein, 1/4 plate high quality carbohydrate; use myfitnesspal to periodically check on calcium intake; fiber 22-28g/day Continue progress on quitting smoking Monitor/Evaluate: Return in about 2 months (around 03/04/2023) for Alee HUDSON MD appointment - as available, former Danny pt. Aim for 5-10% weight loss from ABW [...] Alfreda Delgado MD Note: BAYRON such as myfitnesspal or Lose it, or pen and paper. [...] adult documented in this encounter Care Teams Professional Development Director Relationship Specialty Start Date End Date Carol Randle APRN PCP - General Family Medicine 03/26/22 documented as of this encounter
--- OUTSIDE RECORDS SUMMARY | 2024-02-19 07:06 | XMS_ITS | Encounter Summary ---
Author Organization [facility] Address [address] [place] [address] Care Team Providers Care Graphics Specialist Name Role Phone Unavailable Primary Care Provider Unavailabl e Encounter Details Date Type Department Care Team (Late st Contact Info) Description 10/09/2002 Results Only [facility] [address] [place] [address] George, September, [facility] [address] [place] [phone] Social History Tobacco Use Types Packs/Day Years Used Date Smoking Tobacco: Never Assessed Sex and Gender Information Value Date Recorded Sex Assigned at Not on file Gender Identity Not on file Sexual Orientation Not on file documented as of this encounter Plan of Treatment Not on file documented as of this encounter Procedures Procedure Name Priority Date/Time Associated Diagnosis Comments CYTOPATHOLOGY Routine 10/09/2002 0:00 EDT documented in this encounter Results * CYTOPATHOLOGY (10/09/2002 0:00 EDT) Pathology Report: CYTOPATHOLOGY REPORT Reports generated via electronic interface contain original data; however they are lacking the format of the original report. Caution should be taken when reading/interpreti ng unformatted reports. Name: ? ANNALISA MONROY ? Accession #: ? [id number] : ? 1980 (Age: 22) ??F ?Collect Date: ? 10/09/2002 Location: ? [facility] ? Receive Date: ? 10/13/2002 Provider: ?MINERVA Leeanna NIKACATALINA CNM Copy to: ? Specimen/Source: ?ThinPrep Pap Test, Cervix/Endocervix Last Menstrual Period: ? 09/18/02 Hormonal/Contracep tive Status: ? Yes Previous Gynecologic Pathology: ? LSIL Treatment History: ? Cryotherapy: 04/25 Other: ? HPVA - HPV testing requested if ASC-US on the current ThinPrep Pap test. ? SPECIMEN ADEQUACY ? Satisfactory for Evaluation - transformation zone component present GENERAL CATEGORIZATION ? Negative for Intraepithelial Lesion or Malignancy ? Document reviewed and electronically signed by: ? VERA Millard(ASCP) ? Report Date: ??10/14/2002 15:18 End of Report GABBI HASSAN 10/09/2002 10/13/2002 Minerva Durán George CNM PATHOLOGY ORDERABLES Performing Organization Address City/State/[facility] Co de Phone Number GABBI HASSAN [address] [place] [address] documented in this encounter Visit Diagnoses Not on filedocumented in this encounter
--- OUTSIDE RECORDS SUMMARY | 2024-02-19 07:06 | XMS_ITS | Encounter Summary ---
Author Organization [facility] Address [address] [place] [address] Care Team Providers Care Order Schedule Clerk Name Role Phone Hung Willis MD Primary Care Provider Unav ailable Encounter Details Date Type Department Care Team (Late st Contact Info) Description 10/16/2021 Lab Requisition [facility] Pathology & Laboratory Medicine - [facility] [address] [place], [place] [address] Outr Resulting Lab, Provider Social History Tobacco [...] Procedure Name Priority Date/Time Associated Diagnosis Comments ALPHA 1 ANTITRYPSIN Routine 10/16/2021 1 1:15 EDT documented in this encounter Results * ALPHA 1 ANTITRYPSIN (10/16/2021 11:15 EDT) Alpha 1 Antitrypsin 143 90 - 200 mg/dL 10/17/2021 10:07 EDT [facility] Blood VENOUS BLOOD / Unknown 10/16/2021 11:15 EDT 10/16/2021 20:57 EDT Provider Outr Resulting Lab CHEMISTRY & BLOOD GAS ORDERABLES [facility] [address] [place] [address] documented in this encounter Visit Diagnoses Not on filedocumented in this encounter Care Teams Order Schedule Clerk Relationship Specialty Start Date End Date Hung Willis MD PCP - General 03/22/15 documented as of this encounter
--- OUTSIDE RECORDS SUMMARY | 2024-02-19 07:06 | XMS_ITS | Encounter Summary ---
Author Organization [facility] [place] [address] [place] [address] Care Team Providers Care Human Resource Advisor Name Role Phone Carol Randle APRN Primary Care Provider [phone] Encounter Details Date Type Department Care Team (Late st Contact Info) Description 09/19/2022 Notes Only [place] [address] Alfreda Delgado MD [facility] [place] [address] Social History Tobacco Use Types Packs/Day Years [...] as of this encounter Progress Notes * Alfreda Delgado MD - 09/19/2022 2:54 PM EDT NO SHOW. I SENT LINK. VOICEMAIL WAS FULL. PRE-CHARTING SAVED. [facility] Visit ( ) IN CLINIC (xx ) video visit ( ) phone visit Patient Name: Milagros Maher Date of : 1980 Age: 42 y.o. Carol Randle APRN is PCP. Thank you for referring Milagros Maher to the [facility] for consultation regarding obesity. CHIEF COMPLAINT: Follow-up for Obesity Pathway:obesity medicine INTERVAL HISTORY / PROGRESS TOWARD GOALS: [x] I reviewed past / interim records including notes and labs. This is the 2nd folllow up [facility] visit for this 42 y.o. y.o. patient who I saw in [facility] for the first time on 05/23/2022 (video [...] ordered labs to be done fasting in [place] NOT anxious to take anti-obesity medication, ?? Last dietitian visit: (reviewed): [place] 08/21/2022. Last visit with health customer care team coach Bertin Bobo: 08/06/2021. Referrals done other than dietitian and health customer care team coach: ( ) [facility] [...] gastroparesis ( ) other: TODAY PATIENT REPORTS: Control of hunger and appetite: Nutrition/healthy eating: Meeting goal of protein with bkfst? Re: oob to eat- Tracking: Goals ??? Exercise 3x per week (10-15 [...] ??? TRACK food intake BAYRON such as [employer] or Lose it, or pen and paper. If using bayron or activity monitor, don't add in extra calories for the calories you burn. ??? work on NOT getting out of bed to eat ROS: as above (x ) they reported no new symptoms other than as above VITAL SIGNS: (x video visit, she does not know weight. Last 5 weight values: Wt Readings from [...] fasting glucose and other co-morbidites: ?? Milagros Maher was seen in follow up for ongoing obesity, not yet at treatment goal, [ ] with improvement [ ] without change ?? RTC me end of August zoom visit.. SMOKING: Not discussed today. At last visit working with PCP on quitting. NAFLD: Sees Patrick Laguerre. ?? Healthy Lifestyle recommendations to promote healthy weight EDDY: ?? Continue CPAP as prescribed Vitamin D deficiency: Labs/Tests ordered today: See above I spent minutes in care of this patient today [...] Alfreda Delgado MD Note: BAYRON such as [employer] or Lose it, or pen and paper. If using bayron or activity monitor, don't add in extra calories for the calories you burn. work on NOT getting out of bed to eat Lifestyle No Alfreda Delgado MD have protein-containin g breakfast Lifestyle No Alfread Delgado MD self-awareness and goal setting Lifestyle [...] on filedocumented in this encounter Care Teams Human Resource Advisor Relationship Specialty Start Date End Date Carol Randle APRN PCP - General Family Medicine 03/26/22 documented as of this encounter
--- OUTSIDE RECORDS SUMMARY | 2024-02-19 07:06 | XMS_ITS | Encounter Summary ---
Author Organization [facility] Address [address] [place] [address] Care Team Providers Care Pump Servicer Helper Name Role Phone Unavailable Primary Care Provider Unavailabl e Encounter Details Date Type Department Care Team (Late st Contact Info) Description 02/04/2002 Results Only [facility] [address] [place] [address] Richard Read CNM Social History Tobacco Use Types [...] Priority Date/Time Associated Diagnosis Comments CYTOPATHOLOGY Routine 02/04/2002 0:00 EDT documented in this encounter Results * CYTOPATHOLOGY (02/04/2002 0:00 EDT) Pathology Report: CYTOPATHOLOGY REPORT Reports generated via electronic interface contain original data; however they are lacking the format of the original report. Caution should be taken when reading/interpreti ng unformatted reports. Name: ? ANNALISA MONROY ? Accession #: ? [id number] : ? 1980 (Age: 21) ??F ?Collect Date: ? 02/04/2002 Location: ? [facility] ? Receive Date: ? 02/06/2002 Provider: ?RICHARD PARADISETYRESE CNM Copy to: ? Specimen/Source: ?ThinPrep Pap Test, Cervix/Endocervix Last Menstrual Period: ? 01/24/02 Previous Gynecologic Pathology: ? ASC-US: 08/23 Other: ? HPVA - HPV testing requested if ASC-US on the current ThinPrep Pap test. ? SPECIMEN ADEQUACY ? Satisfactory for Evaluation - transformation zone component present GENERAL CATEGORIZATION ? Epithelial Cell Abnormality INTERPRETATION ? Squamous Cell Abnormality - Atypical squamous cells, undetermined significance. EDUCATIONAL NOTES/RECOMMENDATI ONS ? [facility] recommends following the 2001 Consensus Guidelines for the Management of Women with Cervical Cytological Abnormalities (KENDRA,2002;287:212 0-9). Management algorithms have been distributed by [facility] and are available online at www.ASCCP.org. ? Document reviewed and electronically signed by: ? HELEN HEATH MD ? Report Date: ??02/11/2002 10:24 End of Report GABBI HASSAN 02/04/2002 02/06/2002 Richard Paradisetyrese ALANNA PATHOLOGY ORDERABLES Performing Organization Address City/State/[facility] Co de Phone Number GABBI HASSAN [address] [place] [address] documented in this encounter Visit Diagnoses Not on filedocumented in this encounter
--- OUTSIDE RECORDS SUMMARY | 2024-02-19 07:06 | XMS_ITS | Encounter Summary ---
Author Organization [facility] [place] [address] Care Team Providers Care Support Group Manager Name Role Phone Carol Randle APRN Primary Care Provider Encounter Details Date Type Department Care Team (Late st Contact Info) Description 03/20/2023 11:00 AM EDT TH Visit (TeleHealth) [place] [address] [facility] [place] [address] Adult BMI 33.0-33.9 kg/sq m Social History [...] * Patient Instructions* Taty Vickers RD - 03/20/2023 11:00 AM EDT Nutrition Goals: Return to exercise routine when [...] carbohydrate Continue progress on quitting smoking documented in this encounter Progress Notes * Taty Vickers RD - 03/20/2023 11:00 AM EDT Nutrition Intervention for Weight Management Follow-up RD visit with CRISTINA Thurman 1980 Weight Today: Wt Readings from Last 3 Encounters: 10/18/22 96.2 kg (212 lb) 05/23/22 97.1 kg (214 lb) 05/07/22 97.3 kg (214 lb 6.4 oz) BMI Readings from Last 3 Encounters: 10/18/22 33.45 kg/m?? 05/23/22 33.77 kg/m?? 05/07/22 33.83 kg/m?? Pertinent Meds: none Interview: recovering from broken/sprained ankle, using crutches; not eating because been laying inbed, and child bring food; has job interview this week; thinking about eating more healthy - what to bring for snacks/lunch Food Tracking: myfitnesspal - sometimes Smoking: increased due to boredom/sitting around/pain; 20+ per day; is planning to schedule anotherhypnosis appointment Typical Dietary Intake: 8am B: toast with peanut butter OR breakfast sandwich, egg, hodges, thai muffin OR omelettes - eggs, veggies 12 noon L: leftovers OR tomato, salt, pepper, garlic 6pm D: soups, crockpot foods OR pizza OR salad Evening snack - pudding cup OR jello with fruit OR sweet craving Typical Beverages: water, coffee, seltzer, cold water infusions/tea Appetite/Hunger: [] Poor appetite r/t [x] Currently well-managed [] Not managed (see interview) Nutrition topics covered today: [x] Eating an appropriate amount of food for your body, limitations of caloric restriction and under eating [] Grazing / skipping / restricting [x] Scheduled times / frequency of eating [] Reduce highly processed foods, refined carbohydrates, in favor of whole foods [] Reduce sweet taste in your diet (whether by sugar or non-nutritive sweeteners) [] Increase fruits and non-starchy veggies [x] Increase fiber through f&v, nuts/seeds, whole grains, legumes (goal of 22-28 g/day women ; 28-34 g/day men) [x] Adequate protein intake (handout provided? [] ) [x] Meal planning [] Reduce sodium intake to goal of 2300 mg or less per day, 1500 mg lower target with cardiovascular risk factors or disease Activity: limited due to leg injury; Nutrition Assessment: variable protein intake; increased snacking due to foot injury; reduced exercise due to injury; adequate fluid intake; potential future change in work schedule; reduced vegetable intake; variable fiber intake Nutrition Goals updated today: Goals Addressed This Visit's Progress Nutrition - 03/20/23 Nutrition Goals: Return to exercise routine when [...] quality carbohydrate Continue progress on quitting smoking Monitor/Evaluate: Return in about 3 months (around 06/19/2023) for Jean-Claude HUDSON. Thank you Taty Vickers MS RDN LD 30 minutes were spent [id number] with this patient today, whether in person or by zoom as specified above documented in this encounter Plan of Treatment [...] Minute Resistance Band Workout for Beginners (medium) https://www.Sonarworks.com/watch?v=iLWuhbt88bh You should all have resistance bands from [...] holding the starting position of that movement. https://www.Visual.lyube.com/watch?v=D4lKMhQrCMW Seated Resistance Band Exercises https://www.Visual.lyube.com/watch?v=KSUoKByDckc Simple Yoga-based strength training https://www.youI-DISPOube.com/watch?v=f6cpPGADtEZ Balance and Strength training on Stairs https://www.Visual.lyube.com/watch?v=gBTHlOQUCRo TRACK food intake Lifestyle No Alfreda Delgado MD Note: BAYRON such as Bills Khakispal or Lose it, or pen and paper. [...] adult documented in this encounter Care Teams Support Group Manager Relationship Specialty Start Date End Date Carol Randle APRN PCP - General Family Medicine 03/26/22 documented as of this encounter
--- OUTSIDE RECORDS SUMMARY | 2024-02-19 07:06 | XMS_ITS | Encounter Summary ---
Author Organization [facility] Address [address] [place] [address] Care Team Providers Care Brick And Block Mason Name Role Phone Hung Willis MD Primary Care Provider Unav ailable Encounter Details Date Type Department Care Team (Late st Contact Info) Description 12/14/[address] [facility] Pathology & Laboratory Medicine - [facility] [address] [place], [place] [id number] Outr Resulting Lab, Provider Social History Tobacco [...] Comments ZZCOVID-19 TEST [facility] PCR Today 12/13/2020 17:20 EDT COVID-19 TESTING Routine 12/13/2020 17:2 0 EDT documented in this encounter Results * COVID-19 TEST [facility] PCR (12/13/2020 17:20 EDT) Swab ENTIRE NASOPHARYNX / Unknown 12/13/2020 17:20 EDT 12/14/2020 15:35 EDT Provider Outr Resulting Lab MICROBIOLOGY - GENERAL ORDERABLES [facility] [address] [place] [address] * COVID-19 TESTING (12/13/2020 17:20 EDT) COVID-19 rt-PCR Result Negative Negative 12/15/2020 13:49 EDT [facility] Comment: This test has [...] clinical observations, patient history, and epidemiological information. This test was developed and its performance characteristics determined by [facility]. It has not been cleared or approved by the US Food and Drug Administration. FDA does not require this test to go through premarket FDA review. This test is used for clinical purposes. It should not be regarded as investigational or for research. This laboratory is certified under the Clinical Laboratory Improvement Amendments (CLIA) as qualified to perform high complexity clinical laboratory testing. This test is based on the [facility] COVID-19 Emergency Use Authorization (EUA) assay, with minor modification as defined by the FDA Performed on the [employer] 7 Flex RT-PCR System. Performing Lab [facility] 12/15/2020 13:49 EDT [facility] Swab 12/13/2020 17:2 0 EDT 12/14/2020 15:35 EDT Provider Outr Resulting Lab MICROBIOLOGY - GENERAL ORDERABLES [facility] [address] [place] [address] documented in this encounter Visit Diagnoses Not on filedocumented in this encounter Care Teams Brick And Block Mason Relationship Specialty Start Date End Date Hung Willis MD PCP - General 03/22/15 documented as of this encounter
--- OUTSIDE RECORDS SUMMARY | 2024-02-19 07:06 | XMS_ITS | Encounter Summary ---
Author Organization [facility] Address [facility] [place] [address] Care Team Providers Care Instructional Media Services Technician Name Role Phone Carol Randle APRN Primary Care Provider [phone] Encounter Details Date Type Department Care Team (Late st Contact Info) Description 01/10/2023 9:30 AM EDT Notes Only Weight and Wellness at [facility] [place] [id number] Karma lFeming Social History Tobacco Use Types Packs/Day Years [...] encounter Progress Notes * Karma Fleming - 01/10/2023 9:30 AM EDT Images from the original note were not included. Milagros Maher is here today at the request of their Weight and Wellness MD for comprehensive lifestyle coaching, centered around weight control and optimizing overall health. Goals Addressed This Visit's Progress Engage in strength training 2 days per week, pick 1 video of your choice sent by [facility] Using RT Bands, unconventional, bodyweight 30 Minute Resistance Band Workout for Beginners (medium) https://www.ThinkNear.com/watch?v=zDXwaej04ik You should all have resistance bands from your welcome packet at weight and wellness. Please let meknow if you need me to mail you some! 20 minute strength training workout (no equipment needed) - This one is long, break into pieces if you find it to be challenging! Any time you cannot do a movement in this video, just try to practiceholding the starting position of that movement. https://www.Lust have it!ube.com/watch?v=M8qYXsVkMVQ Seated Resistance Band Exercises https://www.Lust have it!ube.com/watch?v=KSUoKByDckc Simple Yoga-based strength training https://www.Lust have it!ube.com/watch?v=z5ygPEBMvEJ Balance and Strength training on Stairs https://www.Lust have it!ube.com/watch?v=gBTHlOQUCRo Go for a walk for 30 minutes a day, 3 days a week documented in this encounter Plan of Treatment [...] Minute Resistance Band Workout for Beginners (medium) https://www.Lust have it!ube.com/watch?v=xLLghxf41zk You should all have resistance bands from [...] holding the starting position of that movement. https://www.Lust have it!ube.com/watch?v=S0rGZsMyQXD Seated Resistance Band Exercises https://www.Lust have it!ube.com/watch?v=KSUoKByDckc Simple Yoga-based strength training https://www.Lust have it!ube.com/watch?v=s6zmFIHYiMK Balance and Strength training on Stairs https://www.youtube.com/watch?v=gBTHlOQUCRo TRACK food intake Lifestyle No Alfreda Delgado MD Note: BAYRON such as myGirafficnesspal or Lose it, or pen and paper. If using bayron or activity monitor, don't add in extra calories for the calories you burn. work on NOT getting out of bed to eat Lifestyle No Alfreda Delgado MD have protein-containin g breakfast Lifestyle No Alfreda Delgado MD self-awareness and goal setting Lifestyle No Bretin Bobo Note: Draft a Wellness Vision. Nutrition [...] on filedocumented in this encounter Care Teams Instructional Media Services Technician Relationship Specialty Start Date End Date Carol Randle APRN PCP - General Family Medicine 03/26/22 documented as of this encounter
--- OUTSIDE RECORDS SUMMARY | 2024-02-19 07:06 | XMS_ITS | Encounter Summary ---
Author Organization [facility] Address [address] [place] [address] Care Team Providers Care Lift Electrician Name Role Phone Hung Willis MD Primary Care Provider Unav ailable Encounter Details Date Type Department Care Team (Late st Contact Info) Description 02/28/2022 Lab Requisition [facility] Pathology [facility] - [facility] [address], [place] [address] Outr Resulting Lab, Provider Social History Tobacco [...] Procedure Name Priority Date/Time Associated Diagnosis Comments HOLD SST Today 02/27/2022 14:18 EDT HOLD SST Today 02/27/2022 14:18 EDT MEASLES IGG AB Today 02/27/2022 14:18 EDT RUBELLA IGG ANTIBODY Today 02/27/2022 14:18 EDT HEPATITIS B SURFACE ANTIBODY Today 02/27/2022 14:18 EDT VARICELLA IGG ANTIBODY Today 02/27/2022 14:18 EDT MUMPS ANTIBODY IGG Today 02/27/2022 14 :18 EDT documented in this encounter Results * HOLD SST (02/27/2022 14:18 EDT) Hold Hold 02/28/2022 18:01 EDT [facility] Blood VENOUS BLOOD / Unknown Non-Lab Collect / Unknown 02/27/2022 14:18 EDT 02/28/2022 17:01 EDT Provider Outr Resulting Lab LAB INFO SER VICE AND SUPPORT & PHONE RESULT Performing Organization Address City/[facility]/ZIP Co de Phone Number [facility] [address] [place] [address] * HOLD SST (02/27/2022 14:18 EDT) Hold Hold 02/28/2022 18:01 EDT [facility] Blood VENOUS BLOOD / Unknown Non-Lab Collect / Unknown 02/27/2022 14:18 EDT 02/28/2022 17:01 EDT Provider Outr Resulting Lab LAB INFO SER VICE AND SUPPORT & PHONE RESULT Performing Organization Address City/[facility]/ZIP Co de Phone Number [facility] [address] [place] [address] * HEPATITIS B SURFACE ANTIBODY (02/27/2022 14:18 EDT) Hep B Surface Ab, Quantitative 36.2 See Note mIU/mL 03/01/2022 8:46 EDT [facility] Comment: Reference Range for Hep B Surface Ab, Quant: Positive: >= 10.0 mIU/mL Negative: ??< 10.0 mIU/mL Patient is presumed to be immune to infection with Hepatitis B Virus. Hep B Surface Ab, Qualitative Positive See Note 03/01/2022 8:46 EDT [facility] Comment: Reference Range for Hep B Surface Ab, Qual: Unvaccinated: ??Negative Vaccinated: ??Positive Blood VENOUS BLOOD / Unknown Non-Lab Collect / Unknown 02/27/2022 14:18 EDT 02/28/2022 17:01 EDT Provider Outr Resulting Lab CHEMISTRY & BLOOD GAS ORDERABLES Performing Organization Address [facility] Co de Phone Number [facility] [address] [place] [address] * MEASLES IGG AB (02/27/2022 14:18 EDT) Measles IgG Ab Positive See Note 03/01/2022 9:48 EDT [facility] Comment:Presence of detectab le measles virus IgG antibodies. Blood VENOUS BLOOD / Unknown Non-Lab Collect / Unknown 02/27/2022 14:18 EDT 02/28/2022 17:01 EDT Provider Outr Resulting Lab IMMUNOLOGY A ND SEROLOGY ORDERABLES Performing Organization Address [facility] de Phone Number [facility] [address] [place] [address] * VARICELLA IGG ANTIBODY (02/27/2022 14:18 EDT) Varicella IgG Ab Positive See Note 03/01/2022 9:47 EDT [facility] Comment:Presence of detectab le Varicella Zoster virus IgG antibodies. Blood VENOUS BLOOD / Unknown Non-Lab Collect / Unknown 02/27/2022 14:18 EDT 02/28/2022 17:01 EDT Provider Outr Resulting Lab IMMUNOLOGY A ND SEROLOGY ORDERABLES Performing Organization Address [facility] de Phone Number [facility] [address] [place] [address] * MUMPS ANTIBODY IGG (02/27/2022 14:18 EDT) Mumps Antibody IgG Positive See Note 03/01/2022 9:49 EDT [facility] Comment:Presence of detectab le mumps virus IgG antibodies. Blood VENOUS BLOOD / Unknown Non-Lab Collect / Unknown 02/27/2022 14:18 EDT 02/28/2022 17:01 EDT Provider Outr Resulting Lab IMMUNOLOGY A ND SEROLOGY ORDERABLES Performing Organization Address [facility] Co de Phone Number [facility] [address] [place] [address] * RUBELLA IGG ANTIBODY (02/27/2022 14:18 EDT) Rubella IgG Ab Negative See Note 03/01/2022 9:51 EDT [facility] Comment:Sample is considered negative for IgG antibodies to Rubella virus. A negative result presumes that immunity has not been acquired. If exposure to Rubella virus is suspected despite a negative finding, a second specimen should be collected and tested for Rubella IgG Ab one or two weeks later. Blood VENOUS BLOOD / Unknown Non-Lab Collect / Unknown 02/27/2022 14:18 EDT 02/28/2022 17:01 EDT Provider Outr Resulting Lab CHEMISTRY & BLOOD GAS ORDERABLES Performing Organization Address [facility] Co de Phone Number [facility] [address] [place] [address] documented in this encounter Visit Diagnoses Not on filedocumented in this encounter Care Teams Lift Electrician Relationship Specialty Start Date End Date Hung Willis MD PCP - General 03/22/15 documented as of this encounter
--- OUTSIDE RECORDS SUMMARY | 2024-02-19 07:07 | XMS_ITS | Encounter Summary ---
Author Organization [facility] Address [facility] [place] [address] Care Team Providers Care Housing Counselor Name Role Phone Carol Radnle APRN Primary Care Provider Encounter Details Date Type Department Care Team (Late st Contact Info) Description 06/12/2022 8:00 AM EST TH Visit (TeleHealth) Weight and Wellness at [address] [address] [facility] [place] [address] Adult BMI 33.0-33.9 kg/sq m Social History [...] * Patient Instructions* Taty Vickers RD - 06/12/2022 8:00 AM EST Nutrition Goals: Establish exercise routine - continue walking, consider increasing to moderate intensity walking; add resistance exercise to routine using resistance bands Balanced plate - 1/2 plate vegetables, 1/4 plate protein, 1/4 plate high quality carbohydrate; Continuing to choose protein at every eating event; increasing vegetable intake; Handout - nutrition websites documented in this encounter Progress Notes * Taty Vickers RD - 06/12/2022 8:00 AM EST Nutrition Intervention for Weight Management Initial RD visit with CRISTINA Thurman 1980 Patient confirms visit conducted while patient was in the following state: [place] Weight Today: Wt Readings from Last 3 Encounters: 05/23/22 97.1 kg (214 lb) 05/07/22 97.3 kg (214 lb 6.4 oz) 04/11/22 97.5 kg (215 lb) BMI Readings from Last 3 Encounters: 05/23/22 33.77 kg/m?? 05/07/22 33.83 kg/m?? 04/11/22 33.75 kg/m?? 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; being active during the summer was difficult due to heat and humidity - needed oxygen and air conditioner; 221 highest weight in December; gall bladder is malfunctioning - continuous pain, food triggers - pain within a half hour, planned surgery to remove gallbladder; diabetes; currently on no-fat diet for gallbladder until surgery; 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, two dogs; 2 kids; dentures Smoking: working on trying to quit - 3/4 pack per day, 15 cigarettes; working with quit network, received patches - planning to try this month; Diabetes Management: haven't tracked blood sugar at home in about a month; September pre-diabetes; can't get testing supplies, only check when feeling off; Typical Dietary Intake: Wakeup - 5-6:30am; not rested; not hungry; uses oxygen while sleeping; start with medication and water; 6:30am: coffee - 8-10oz, coffee mate creamer/sugar free coffee mate creamer/1 ounce maple syrup for3 cups coffee, 2 oz 1% milk; 9-10am first feel physically hungry 9am B: 2% fat grenadian yogurt with frozen berries OR 1/2 cup rolled oats, flax seed, debbie seed, powdered almond butter, fruit - apple, blueberries, banana; water 12noon L (skip 3 days a week): 4x/week - leftovers OR sweet potatoes, butternut squash, onions, peppers, herbs, chicken; water or seltzer 3pm S (if skipped lunch or dinner is late): yogurt with fruit OR fat free cottage cheese, crackers OR smoothie - 1% milk, fruit/veggies, spinach, flax/debbie; 6-7pm D: turkey meatballs, corn, mashed potatoes OR spaghetti squash, chicken sausage, 1/2 cup fat free cottage cheese S: grenadian yogurt with berries (to avoid eating in middle of the night) 10-11pm Bedtime - no trouble falling asleep; no trouble staying asleep; wakeup to go to the bathroom in the middle of the night; Typical Beverages: coffee - 1-3 per day; water - 1.5-2quarts; seltzer - 1 liter; herbal tea - 2 cups; no alcohol; Appetite/Hunger: [x] feels managed with foods/meals outlined above [] discussed meal/snack schedule adjustment today- see goals [] patient identifies eating for reasons other than hunger- see interview Food Tracking: [] Current food Tracking [] discussed potential benefit starting food tracking - see goals [] Food tracking not appropriate for patient at this time [x] Did not discuss today Patient Goals from Team: Goals ??? Exercise 3x per week (10-15 min per time) Try qigong and t'ai chi. ??? have protein-containing breakfast ??? Nutrition - 06/12/22 Nutrition Goals: ??? Establish exercise routine - continue walking, consider increasing to moderate intensity walking; add resistance exercise to routine using resistance bands ??? Balanced plate - 1/2 plate vegetables, 1/4 plate protein, 1/4 plate high quality carbohydrate; ??? Continuing to choose protein at every eating event; increasing vegetable intake; Handout - nutrition websites ??? self-awareness and goal setting Draft a Wellness Vision. ??? TRACK food intake BAYRON such as Moovlypal or Lose it, or pen and paper. If using bayron or activity monitor, don't add in extra calories for the calories you burn. ??? work on NOT getting out of bed to eat Other topics discussed: [x] Eating an appropriate amount of food for your body [x] Scheduled times / frequency of eating [x] Reduce highly processed foods, refined carbohydrates, in favor of whole foods [x] Reduce sweet taste in your diet (whether by sugar or non-nutritive sweeteners) [x] Increase fruits and non-starchy veggies [x] Increase fiber through f&v, whole grains, legumes (goal of 25 g/day women ; 35 g/day men) [] Replace processed meat with other meat, fish, or, ideally, plant-based proteins (Good, Better,Best handout provided? [] ) [] Consider adding or increasing fermented foods [] Other eating behaviors: [] Permission to eat [] Distraction [] Food environment Activity: workout lemuel; active with dogs; take care of farm animals; turkey trot 5k walk on ; joined [employer] challenge - walk 63 miles in April; walking - 6 out of 7 days a week, 60 minutes; has resistance bands - not currently using [] Reviewed current goals [x] Updated goals [] Did not discuss today Nutrition Goals updated today: (1) exercise routine - resistance (2) balanced plate (3) choose protein and increase vegetable Monitor/Evaluate: Return in about 2 months (around 08/13/2022) for Jean-Claude HUDSON. Aim for 5-10% weight loss from ABW x 3-6 months from initial visit Thank you Taty Vickers MS BECCAN LD 60 minutes were spent in visit today, including [...] adult documented in this encounter Care Teams Housing Counselor Relationship Specialty Start Date End Date Carol Randle APRN PCP - General Family Medicine 03/26/22 documented as of this encounter
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
--- OUTSIDE RECORDS SUMMARY | 2024-02-19 07:07 | XMS_ITS | Encounter Summary ---
Author Organization [facility] Address [facility] [place] [address] Care Team Providers Care Distribution Center Supervisor Name Role Phone Carol Randle APRN Primary Care Provider [phone] Encounter Details Date Type Department Care Team (Latest Contact Info) Description 05/07/2022 Travel Social History Tobacco Use Types Packs/Day [...] on filedocumented in this encounter Care Teams Distribution Center Supervisor Relationship Specialty Start Date End Date Carol Randle APRN PCP - General Family Medicine 03/26/22 documented as of this encounter
--- OUTSIDE RECORDS SUMMARY | 2024-02-19 07:07 | XMS_ITS | Encounter Summary ---
Author Organization [facility] [place] [address] Care Team Providers Care National Insurance Officer Name Role Phone None Primary Care Provider Unavailabl e Encounter Details Date Type Department Care Team (Late st Contact Info) Description 02/25/2016 Orders Only Obstetrics [place] [address] Collette Rashid MD [facility] [address] OBSTETRICS & [place] [address] Social History Tobacco Use Types Packs/Day Years [...] on filedocumented in this encounter Care Teams National Insurance Officer Relationship Specialty Start Date End Date None None PCP - General 04/27/15 03/25/22 documented as of this encounter
--- OUTSIDE RECORDS SUMMARY | 2024-02-19 07:07 | XMS_ITS | Encounter Summary ---
Author Organization [facility] [place] [address] Care Team Providers Care Hand Spring Repairer Name Role Phone None Primary Care Provider Unavailabl e Reason for Visit * Reason Comments Follow-up depo Encounter Details Date Type Department Care Team (Late st Contact Info) Description 07/25/2015 9:30 AM EST Office Visit Obstetrics [place] [id number] Candice Wood APRN [facility] [place] [address] Endometriosis (Primary Dx); Chronic pelvic pain in female Social History Tobacco Use Types Packs/Day Years [...] Sign Reading Time Taken Comments Blood Pressure 120/74 07/25/2015 9:12 AM EST Pulse - - Temperature - - Respiratory Rate - - Oxygen Saturation - - Inhaled Oxygen Concentration - - Weight 78.9 kg (174 lb) 07/25/2015 9:12 AM EST Height 193 cm (6' 4) 07/25/2015 9:12 AM EST Body Mass Index 21.18 07/25/2015 9:12 AM EST documented in this encounter Progress Notes * Candice Wood APRN - 07/25/2015 9:44 AM EST Patient Active Problem List Diagnosis Code ??? Endometriosis N80.9 ??? Chronic pelvic pain in female R10.2, G89.29 HPI: Milagros is a very pleasant 35 year old female who comes to clinic today for f/u endometriosis.She saw Dr. Fede Meek in April for consult and a plan was made to start Depot Lupron 11.25 mg with Aygestin add back therapy and RTC in 3 months. Please see her note for complete history of that visit. Milagros states her pelvic pain has improved dramatically with since starting Lupron. Her pain was a6-7/10 daily prior to the depot and now is 1 out of 10 and some days it is not noticeable at all. She is VERY happy with this combination therapy of Lupron and Aygestin. She does note occasional vasomotor s/s and low grade headache on occasion but these symptoms are manageable for her. She would like to continue Lupron if possible. Past Surgical History Procedure Laterality Date ??? Hysteroscopy 02/2015 ??? Pelvic laparoscopy 02/2015 History Social History ??? Marital Status: Spouse Name: N/A Number of Children: N/A ??? Years of Education: N/A Occupational History ??? Not on file. Social History Main Topics ??? Smoking status: Current Every Day Smoker -- 1.00 packs/day for 20 years Types: Cigarettes ??? Smokeless tobacco: Never Used Comment: trying to quit ??? Alcohol Use: 0.0 - 0.6 oz/week 0-1 Standard drinks or equivalent per week Comment: occasional ??? Drug Use: No ??? Sexual Activity: Partners: Male Other Topics Concern ??? Not on file Social History Narrative No Known Allergies Current Outpatient Prescriptions on File Prior to Visit Medication Sig Dispense Refill ??? norethindrone (AYGESTIN) 5 mg Tablet Daily No current facility-administered medications on file prior to visit. O: Filed Vitals: 07/25/15 0912 BP: 120/74 Height: 193 cm (6' 4) Weight: 78.926 kg (174 lb) Exam deferred IMPRESSION: Chronic pelvic pain, endometriosis I spent 15 minutes with Milagros and her all in face to face discussion. Discussed the improvement of her symptoms with Depot Lupron. Discussed lifestyle interventions such as layered clothing, cool washcloths, and avoidance of triggers to minimize vasomotor s/s. Discussed importance of Aygestin add back therapy. Will give 11.25 mg Depot Lupron today and will have her f/u with Dr. Fede Meek in 3 months. They are in agreement with this plan of care. PLAN: 1. Depot Lupron 11.25mg today 2. Continue Aygestin 5mg daily 3. RTC 3 months. documented in this encounter Miscellaneous Notes * Addendum Note - Sean Quinteros RN - 07/25/2015 10:15 AM ESTAddended by: SEAN QUINTEROS on: 07/25/2015 10:15 AM Modules accepted: Orders documented in this encounter Plan of Treatment Not on file documented as of this encounter Visit Diagnoses Diagnosis Endometriosis- Primary Endometriosis, site unspecified Chronic pelvic pain in female Unspecified symptom associated with female genital organs documented in this encounter Administered Medications Inactive Administered Medications - up to 3 most recent administrations Medication Order MAR Action Action Date Dose Rate Site leuprolide (LUPRON) injection 11.25 mg 11.25 mg, Intramuscular, ONCE, 1 dose, On 07/25/15 at 1030, Routine Given 07/25/2015 10:00 AM EST 11.25 mg Right Gluteal documented in this encounter Care Teams Hand Spring Repairer Relationship Specialty Start Date End Date None None PCP - General 04/27/15 03/25/22 documented as of this encounter
--- OUTSIDE RECORDS SUMMARY | 2024-02-19 07:07 | XMS_ITS | Encounter Summary ---
Author Organization Formerly [facility] Address [facility] [place] [address] Care Team Providers Care Assistant Grocery Name Role Phone Carol Randle APRN Primary Care Provider [phone] Reason for Visit * Consultation (Routine) - Closed Specialty Diagnoses / Procedures Referred By Contsagar t Referred To Contact [facility] and [facility]ness Diagnoses Prediabetes Fatty infiltration of liver Carol Randle APRN [address] [place] [address] [facility] [address] [place] [address] Referral ID Status Reason Start Date Expiration Date V isits Requested Visits Authorized [id number] Closed Consult, Test & Treat PCP Updated and/or Approved 03/26/2022 03/26/2023 1 1 Encounter Details Date Type Department Care Team (Latest Contact Info) Description 05/23/2022 9:30 AM EST TH Visit (TeleHealth) [facility]ness at [facility] [address] [place] [id number] Alfreda Delgado MD [facility] [address] Class 1 obesity with serious comorbidity and body mass index (BMI) of 33.0 to 33.9 in adult, unspecified obesity type (Primary Dx) Social History Tobacco Use Types Packs/Day Years [...] - Inhaled Oxygen Concentration - - Weight 97.1 kg (214 lb) 05/23/2022 8:57 PM EST p t reported Height - - Body Mass Index 33.77 05/07/2022 3:09 PM EST documented in this encounter Patient Instructions * Patient Instructions* Alfreda Delgado MD - 05/23/2022 9:30 AM EST PLEASE READ AND KEEP THIS DOCUMENT FOR FUTURE REFERENCE. I recommend that you keep a folder for WWCinformation and handouts. It was a pleasure to meet you in [facility] and Wellness clinic. If follow up visits were not scheduled , the motion designer should be calling you to schedule dietitian and health scrum coach visits and follow up with me. Please call us if you don't hear from us in a week. Please plan to be seen regularly at [facility] and stick with the program. Losing weight and keeping it off is not easy!! In general, patients who have more contact with [facility] (appointments with me, the dietitian and health scrum coach, and participation in groups and classes) tend to be more successful. Please be sure to read our - messages. Programs which we offer: # Healthy Lifestyles Program- NEW (and improved) format These group visits offer comprehensive education on living your healthiest life with discussions based on nutrition, activity and lifestyle. Each Smarter block runs for 6 weeks; 1 hour on Zoom per week EatSmarter - focuses on healthy nutritional choices, presented by the dietary team MoveSmarter - focuses on increasing activity in your life, presented by one of our health coaches or operation specialist. LiveSmarter - focuses on making behavior changes through mindful living, presented by one of our health coaches You can choose to participate in one block or all three, but we ask that you attend only one block at a time. If you are interested in scheduling yourself for one of the 6 week Healthy Lifestyle blocks, ghassanlizbeth ([phone]). We also offer a group called the ACT (acceptance and commitment therapy) group and sometimes offer one on one help from a clinical psychologist to assist patients with issues related to emotional eating, cravings and behavior change. The aim of the ACT group is to teach patients skills to deal withchallenging thoughts, feelings and social situations which can make engaging in behaviors to help promote one's health more challenging. PLEASE SEE YOUR NEW PATIENT PACKET FOR more information about the groups, classes and cooking demonstrations which we offer. Right now all of our groups and classes are on Zoom (video) except for some cooking classes. GOALS WE SET: Goals have protein-containing breakfast TRACK food intake BAYRON such as EnSolve Biosystemspal or Lose it, or pen and paper. If using bayron or activity monitor, don't add in extra calories for the calories you burn. work on NOT getting out of bed to eat General Goals we recommend. These may not all be right for you at this time. Motivation may be fleeting and unreliable; don't wait for motivation; take action! Initial goals: Self-monitoring, also called Tracking: track food and beverage intake via a paper journal or free tracking bayron on your smart phone (like MyArchetype MediaPal or Lose It). Don't add in extra calories for the calories you burn with exercise. Activity: We recommend that you work up to at least 150 minutes or more of moderate intensity exercise (such as brisk walking) per week. Studies show that 200 to 300 minutes of exercise per week helps with maintenance of weight loss. Resistance/strength exercise (weights, resistance bands or other strength training ) can help to maintain muscle mass while you lose weight. Nutrition: First meal of the day should contain protein such as eggs, citizen of [place] yogurt or other proteinsource, moderate amount of fat, and low amounts of carbohydrate and sugars. Stop eating after supper. In general we recommend Mediterranean diet with little or no alcohol. (see link at the end of this message for more information about what the Mediterranean diet means). We recommend avoiding sweetened beverages. Make sleep a priority. Patients at high risk for sleep apnea may need a sleep clinic evaluation. Untreated sleep apnea can make it more difficult to lose weight and is a risk factor for high blood pressure, stroke and cardiovascular disease. Goal is for loss of 10% or more of your initial weight with medical therapy. For every visit please be prepared to tell me everything you ate and drank the day before. Please write this down and bring it to in-clinic visits or have ready for Zoom visits. If you have questions or concerns please send a TextPower message or call the office at [phone]. You can also send messages to the health scrum coach, dietitian and nurse. I work at [employer] [facility] part-time. All messages go to our nurse first. If you send a message about a medication which I am prescribing, be sure to specify exactly which medication you are referring to and the exact dose that you are taking and how often, and which pharmacy you want to use. Please allow at least 3-5 business days for a medication refill. [employer] messages are not monitored after hours, on weekends or holidays. For help with ZOOM visits: [phone]. For help with TextPower system or to sign up: [phone]. Forquestions about what your insurance will cover or financial issues related to your care: [phone] or call your insurance carrier. I try very hard to stay on time during office visits. Please arrive 20 minutes before your appointment time so that medication review and vital signs can be done by the medical administrative and we can start our visit right at the appointment time. For video visits, please sign on at least 5 minutes before the visit time. LIFESTYLE ISSUES WE FOCUS ON, as discussed at first visit: food choices, food timing, movement, sleep, stress management, as well as medications. If labs have been ordered,Please send me a TextPower message or call if you don't get the lab results within 2 weeks after having the labs done. Tung Navarrete blood drawing station hours: M- 9-3. [facility], 3L: 6:45 AM -6 PM Saturday-Saturday. Saturday-12. References which you may want to read or listen to: (most are available on Audible-you can sometimes get a free trial; most of the books are available used on Futurefleet for a very low lopez). Anxiety and depression The Happiness Trap by Anthony Sanchez (really about dealing with anxiety and depression and worry, very readable). The Mindfulness and acceptance workbook for anxiety By David Gamboa. Emotional eating: End Emotional Eating by Jodee Reed ( available used on Futurefleet for very low lopez, available on Guerrilla RF). Good for anyone, emotional eater or not! HIGHLY RECOMMENDED. Calming the Emotional Storm Federica Kaleb Montanosarabjit Mindful eating: Eating Mindfully: how to end mindless eating and enjoy a balanced relationship with food by Desiree Kent [email or web address] Self -monitoring/motivation: The Willpower Instinct by Ariana Guy PhD. Intermittent Fasting/Time restricted eating: The Obesity Code by Natalio Bose M.D. Binge Eating: Overcoming Binge Eating by Randolph Truong. Highly recommended for anyone with binge eating. Sleep: No More Sleepless Nights by Anthony Lima. Quiet Your Mind and Get to Sleep by Nemo Lange & Rajani Ca. Sleep Manual by Rojelio Delong Chronic Pain: Managing Pain before it Manages You by Tequila Whyte Living Beyond Your Pain by Alicia Willams & Chepe Eagle For smokers: 8-744-HBBV-NOW. [facility] tobacco cessation program: [phone]. Quitsure Bayron. Please see further sources of information in your new patient packet. ANTI-OBESITY MEDICATIONS: Prescription Medications which can help with weight loss in combination with lifestyle changes (healthy diet and activity): Please note that weight loss amounts vary widely among people; some people respond well to a certain medication and others do not. Insurance coveragevaries; we may ask you to call your insurance company to see what might be covered for you.. Use of anti-obesity medcations is totally optional for you. Please make sure that you understand the possible risks and benefits before taking any medication. Qsymia is a combination of phentermine and topiramate. Qsymia is a brand name medication and not always covered by insurance. We also sometimes give phentermine and topriamate separately for weight loss. Phentermine is a stimulant. It can increase anxiety and cause jitteriness and sleep disturbance in some patients. It has a potential for abuse and dependence which is low but not zero. It is a controlled substance. Use of phentermine alone for weight loss for more than 3 months is an off-label use but this is done routinely by [facility]. Qsymia is FDA approved for rodent exterminator use. Regarding phentermine alone: This medication should be avoided in patients with a history of cardiovascular disease (including prior heart attack, known aneurysms or prior strokes), as well as a uncontrolled high blood pressure or tachyarrhythmias (fast heart rate) . It should also usually be avoided or used with caution in patients with uncontrolled hyperthyroidism, seizures, severe anxiety, narrow angle glaucoma or bipolar disorder. Patients on this medication should be monitored with regards to blood pressure and heart rate. Potential side effects include (but are not limited to) palpitations, jitteriness, headaches, insomnia, constipation and eye pain. Patients should take phentermine before breakfast. Patients should avoid energy drinks, decongestants, and excessive caffeine while on phentermine. They should monitor theirblood pressure and heart rate at home (patients are encouraged to purchase a blood pressure cuff). Patient needs to remember to HOLD the phentermine for one week before surgery or other procedures requiring sedation such as colonoscopy. Check with prescriber about whether the medication needs to betapered. How does phentermine work? It stimulates the hypothalamus to release norepinephrine. Works as appetite supressant. Expected weight loss: 5-7.5%. Expected weight loss from phentermine plus topiramate (Qsymia) 6.5-10% Topiramate is used for treating seizures, migraine headaches, and can be helpful for weight loss. For weight loss we start with very small doses which are usually well-tolerated, however it sometimescauses fatigue, tingling of the hands and feet, mood changes or mental fogginess as well as multiple other possible side effects. It should be used with caution in someone who has had kidney stones. It is totally contraindicated in , so for women of childbearing age two methods of contraception and monthly tests, or a permanent method of contraception are required on this medication. Use of topiramate alone for weight loss is an off-label use. How does topiramate work? Decreases food intake by BELLE receptor modulation. Contrave: This is a combination of the antidepressant bupropion and the opioid ora naltrexone. Bupropion can help with depression. It can be activating and can sometimes increase anxiety. It can sometimes cause an increase in blood pressure and heart rate, insomnia, headache, agitation, dizziness, dry mouth, constipation, nausea, tremor and other possible side effects. It can lower the seizure threshold. Usual weight loss with Contrave: 4.5-6%. We avoid naltrexone plus bupropion or use with caution in patients who have: Seizure disorder, severe anxiety, uncontrolled migraine disorder, atherosclerotic vascular disease, uncontrolled high blood pressure, chronic narcotic use, anorexia nervosa or bulimia nervosa. It can be helpful in patients who are smokers or patients with depression since bupropion can help with depression and can sometimes help with smoking cessation. We would stop Contrave in patients who are taking it who develop worsening migraines, uncontrolled high blood pressure, liver dysfunction, worsening depression, or suicidal ideation. Naltrexone was developed as an opiod ora; it can also reduce appetite and cravings in some patients. It can also decrease the desire for alcohol and is sometimes used for alcohol overuse problems. It will block the effects of narcotics such as percocet. It needs to be held for 3-4 days before aprocedure requiring anesthesia. Possible naltrexone side effects include: nausea, headache, anxiety, diarrhea, constipation,dizziness, fatigue, mood changes, joint pain, sleep trouble and other possible side effects. How does bupropion work? Norepinephrine and dopamine reuptake inhibitor. Stimulates MC4R from POMC neurons. How does naltrexone work? Blocks inhibitory action of beta endorphins. Can reduce the reward feeling from food. The combination of bupropion and naltexone decreases hunger by strengthening within meal satiation (fullness) and post-meal satiety. Using either naltrexone or bupropion alone for weight loss in an off-label use. Metformin is a medication used for diabetes and prediabetes which can also sometimes help with weight loss. Metformin is helpful for weight loss in about one third of patients who take it. It can be useful in slowing or helping to prevent the progression to diabetes. It can cause gastrointestinal side effects such as nausea and loose stool. If started at a low dose and increased gradually, it is usually tolerated. This medication has been around for more than 40 years and we have a lot of experience with it. We avoid metformin in people with severe kidney impairment or severe liver disease. Metformin can be helpful for people who gain weight due to certain psychiatric medications, have polycystic ovary syndrome, have elevated fasting insulin, have metabolic syndrome or elevated fasting glucose (prediabetes). However it can also help with weight loss in overweight patients who have none of these conditions. We recommend that patients take metformin take a B complex vitamin or multivitamin. There is a rare condition called lactic acidosis which can occur with metformin. Metformin should be HELD if the patient becomes dehydrated for any reason or is having a medical study involving dye. How does metformin work? Decreases liver glucose (sugar) production. Decreases intestinal glucose uptake. Decreases food intake by modulating signaling pathway of NPY neurons, leptin and GLP-1 (body chemicals involved in appetite and weight regulation). Use of metformin purely for weight loss is anoff-label use. GLP-1 agonists Brand (generic) Names Victoza or Saxenda (liraglutide), Ozempic or Wegovy(semaglutide by injection), Rybelsus (semaglutide oral), Trulicity (dulaglutide), Mounjaro/tirzepatide (works mainly through GLP-1 and also works onGIP): These meds can be expensive; insurance coverage varies. Most medicare plans do not cover these meds unless the patient has diabetes. Saxenda and Wegovy are the only GLP1 Ismael that are FDA approved for treatment of obesity. Saxenda isthe same medication as Victoza, but Saxenda's highest dose is 3.0mg daily, whereas VIctoza is only up to 1.8mg daily for diabetes. Both of these are daily injections. Ozempic highest dose is 2 mg per week. Wegovy can be given to a dose of 2.4 mg weekly. Ryblesus is the oral form of semaglutide and the only oral GLP1 RA. How they work: through multiple pathways including: Increase release of your body's own insulin Decrease appetite Slow movement of food through the stomach making you feel thompson sooner and longer. When not to use: Personal or Family history of medullary thyroid cancer or multiple endocrine neoplastia type 2. Use cautiously if you have had a history of pancreatitis or gallbladder disease. or at risk for . Other medications For patients with diabetes on insulin: You will likely need to reduce your insulin use when you start this medication. Common Side Effects (not comprehensive) Most commonly gastrointestinal including but not limited to nausea, taste changes, acid reflux, diarrhea or constipation. These side effects may improve after you are on the medication for a few weeks. These side effects are less likely with once weekly and oral dosing What you can do EAT SLOWLY and stop when you feel full. This helps prevent nausea after meals. Starting this medication. Please have your pharmacist show you how to use the pen and how to inject(for injectables). You must increase the dose slowly. You may have more severe side effects if you start on a high dose. Your doctor will start you at a low dose and prescribe slow titration, increasing the dose every week or month. Follow your provider's instructions. If you ever stop this medication for a period of time (one week or more) on purpose or by accident,you may need to begin taking it again at the initial starting dose which may require a new prescription. Monitoring If you do not achieve 5% weight loss at 16 weeks, we may reconsider this medication. Some insurancecompanies have weight loss requirements to continue the medication. Gallbladder disease and pancreatitis (painful inflammation of the pancreas) are uncommon but serious side effects of using these medications. Gallbladder disease is a complication of this medication as well as a complication of obesity and rapid weight loss. If you experience any severe upper abdominal pain, uncontrolled vomiting, pain that radiates to your back or shoulders, please call your PCP or go to the emergency room for evaluation. Other precautions; we have approximately 18 years of experience with this family of medications. Itis possible that negative effects may be found in the future that we are not aware of today, especially with shelter use which is usually required for weight management. Please consider the risks and benefits in your situation and talk to your doctor about questions or concerns. Online information The site below discusses GLP1 Ismael with respect to Type 2 diabetes. Because obesity is often a disease of insulin resistance, the medications help those suffering with obesity in the same way that they help diabetics. https://www.diabeteseducator.org/practice/practice-tools/vfudxthh-ggonjwqoxo-ovd ls/rhj-4-ndzuljfeo https://www.diabeteseducator.org/docs/default-source/practice/educator-tools/glp -1-medications/understanding_glp_final.pdf?sfvrsn=2 The following informational sheet will provide instruction for how to store and inject the injectable forms of GLP1 Ismael. Please consult with your pharmacist about further questions about storage and travel. https://www.diabeteseducator.org/practice/practice-tools/vylnvmti-odmjlcicnh-elj ls/gql-0-oxnmlquvb Liraglutide (Victoza, Saxenda) Liraglutide is a medication developed for diabetes which is also used for weight loss in people whodo not have diabetes. Brand names are Victoza and Saxenda. This medication requires daily injection. Like all GLP-1 agonists, It should not be used in people who have a personal or family history of medullary thyroid cancer or multiple endocrine neoplasia type 2, and should not be used in most people who have had pancreatitis. Side effects can include: GI upset (nausea, vomiting, diarrhea, constipation); these side effects normally improve after 2-3 weeks on the medication. Liraglutide can result in 7.5 to 9% weight loss. Semaglutide is a similar medication to Liraglutide. The injectable form is given once per week and is called Ozempic. The higher doses of semaglutide which are FDA approved for weight loss are calledWegovy and can be associated with 15% weight loss. The oral form is called Rybelsus and is given once daily; this form is usually less effective for weight loss than the injectable forms. Tirzepatide (Mounjaro): GLP-1 and GIP Agonist. Currently FDA approved for type 2 Diabetes How do GLP-1 agonists work? Enhance insulin secretion and reduce glucagon secretion. Slow the emptying of the stomach. Inhibit food intake by inhibiting the NPT/AgRP neurons and stimulating the POMC/CART neurons. SGLT-2 inhibitors (for patients with diabetes only): Canagliflozin (Invokana) and other medicationsending in flozin. These medications work by increasing the amount of sugar which is excreted in the urine. Weight loss is very modest with these medications alone, but they can be useful when addedto other medications. Orlistat: This medication is called Leandro at the lower over the counter dose; it is called Xenical at the higher prescription dose. It is given 3x per day with or within an hour of meals. It decreases the absorption of fat. Possible side effects include oily or fatty stools or fecal soiling, loose stools, abdominal pain and others. Avoid this medication with gallbladder diease, kidney stones, seizures or malabsorption issues. It can block the absorption of some vitamins so a multivitamin supplement needs to be taken at bedtime. ++++++++++++++++++++++++++++++++++++++++++++++++++++++++++++++++++++++++++++++++ + Some of these meds are used off label for weight loss. With anti-obesity medication, loss of 5 to10% of weight is considered a good response. GLP-1 agonists can cause greater weight loss. Patientsneed to be seen regularly in the Weight and Wellness clinic (sometimes monthly at first and usuallyat least every 3 months) for monitoring while taking anti-obesity medication. None of these medications ( with the possible exception of metformin) are safe for use during . Anti-obesity medications only work when combined with diet and activity efforts. If the patient responds well to a medication and then that medication is stopped, usually the weight is re-gained. Again, please be sure that you understand and accept the risks of any anti-obesity medication which youtake. documented in this encounter Progress Notes * Alfreda Delgado MD - 05/23/2022 9:30 AM EST [facility] [address] [facility] [id number] ( ) in-clinic visit (xx )telehealth video visit Patient Name: Milagros Maher Date of : 1980 Age: 42 y.o. Referred by: PCP: Carol Randle APRN is PCP Your patient Milagros Maher has been [facility] to the [facility] for obesitymanagement. I reviewed available records including notes, labs, and other data and discussed them with the patient. Any medication changes which I make will be communicated to you to maintain seamless care. Thank you again for allowing the [facility] to join Milagros's healthcare team. SUMMARY OF VISIT AND ASSESSMENT: Milagros Maher presents to the [facility] for a consultative visit regarding obesity management. The patient has WHO Class 1 obesity BMI 33.7 WEIGHT 214 lbs. Milagros Maher has medical problems including: ELEVATED FASTING GLUCOSE,asthma, anxiety, NAFLD, SMOKER, s/p total hyst , PTSD. EDDY, treated. Food insecurity. Past Medical History 05/22/2022 Have you had any of the following medical problems? High blood pressure, GERD (acid reflux), Fatty liver, Previous abdominal surgeries, Kidney stones Wt 97.1 kg (214 lb) Comment: pt reported LMP 01/22/2016 Comment: irregular BMI 33.77 kg/m?? And other problems per problem list and PMHx. Contraception:HYST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
--- OUTSIDE RECORDS SUMMARY | 2024-02-19 07:07 | XMS_ITS | Encounter Summary ---
Author Organization [facility] [place] [address] Care Team Providers Care Audio Specialist Name Role Phone None Primary Care Provider Unavailabl e Reason for Visit * Reason Comments Follow-up Encounter Details Date Type Department Care Team (Late st Contact Info) Description 04/25/2016 3:00 PM EDT Office Visit Obstetrics [place] [address] Ari Francis MD [facility] DR OBSTETRICS [place] [address] Surgical menopause; Symptomatic premature menopause Social History Tobacco Use Types Packs/Day Years [...] Sign Reading Time Taken Comments Blood Pressure 128/84 04/25/2016 3:02 PM EDT Pulse 88 04/25/2016 3:02 PM EDT Temperature - - Respiratory Rate 18 04/25/2016 3:02 PM EDT Oxygen Saturation 97% 04/25/2016 3:02 PM EDT Inhaled Oxygen Concentration - - Weight 82.6 kg (182 lb) 04/25/2016 3:02 PM EDT Height 170.2 cm (5' 7) 04/25/2016 3:02 PM EDT Body Mass Index 28.51 04/25/2016 3:02 PM EDT documented in this encounter Patient Instructions * Patient Instructions* Ari Francis MD - 04/25/2016 3:00 PM EDT Continue the patch and increase your activity as tolerated. Follow up with me in 6 months. documented in this encounter Progress Notes * Ari Francis MD - 04/25/2016 3:00 PM EDT Chief Complaint Patient presents with ??? Follow-up HPI: Milagros Maher is a 35 y.o. female 8 weeks s/p QUINTEN/BSO for endometriosis. She is feeling better from a pain standpoint and is back at work with increasing duties. Energy is improving. Hot flashes are much less frequent and mood more stable on the combipatch. Tolerating it well. Review of Systems - General- no fever, chills GI-- no N/V, diarrhea - no frequency/ hematuria/incontinence All other systems reviewed and negative Patient Active Problem List Diagnosis Code ??? Endometriosis N80.9 ??? Chronic pelvic pain in female R10.2, G89.29 Current Outpatient Prescriptions: ??? COMBIPATCH 0.05-0.25 mg/24 hr Patch Semiweekly, APPLY 1 PATCH TOPICALLY TWICE WEEKLY, Disp: , Rfl: 12 ??? acetaminophen (TYLENOL) 325 mg Tablet, Take 2 tablets by mouth every 6 hours., Disp: 30 tablet,Rfl: 1 Wt Readings from Last 3 Encounters: 04/25/16 82.6 kg (182 lb) 02/28/16 82.6 kg (182 lb) 02/06/16 82.6 kg (182 lb 1.6 oz) Vitals: 04/25/16 1502 BP: 128/84 Pulse: 88 Resp: 18 SpO2: 97% Weight: 82.6 kg (182 lb) Height: 170.2 cm (5' 7) Physical Exam: On exam she appeared her stated age and in no acute distress. Skin:non-diaphoretic, without rash/lesions Neurological: She is alert and oriented to person, place, and time. Psychiatric:Affect is appropriate. Oriented x 3. HEENT: Normocephalic. Anicteric, normal scleral and conjunctivae. Abd--soft, non-tender. Patch in place without any reaction. Incision well-healed. LABS AND IMAGING: Results for orders placed or performed during the hospital encounter of 02/28/16 Basic Metabolic Panel (non-fasting) Result Value Ref Range Glucose Lvl 116 65 - 199 mg/dL BUN 6 (L) 8 - 18 mg/dL Creatinine 0.71 0.70 - 1.20 mg/dL Sodium 137 135 - 145 mmol/L Potassium 3.9 3.5 - 5.0 mmol/L Chloride 103 98 - 107 mmol/L CO2 22 22 - 31 mmol/L Anion Gap 12 5 - 15 mmol/L Calcium 8.5 8.5 - 10.5 mg/dL Estimated GFR >60 >=60 Hemogram Result Value Ref Range WBC 15.3 (H) 4.0 - 10.0 x10(3)/mcL RBC 4.14 3.93 - 5.22 x10(6)/mcL Hemoglobin 12.8 11.2 - 15.7 gm/dL Hematocrit 38.6 34.0 - 45.0 % MCV 93.2 79.0 - 94.0 fL MCH 30.9 26.6 - 32.2 pg MCHC 33.2 32.0 - 36.5 gm/dL Platelets 302 145 - 370 x10(3)/mcL RDWSD 42.8 35.0 - 46.0 fL RDWCV 12.5 10.9 - 14.4 % MPV 10.5 9.0 - 12.0 fL nRBC % Auto 0.0 % nRBC Abs Auto 0.000 0.000 - 0.012 x10(3)/mcL Differential, Automated Result Value Ref Range Neutrophils % 81.2 % Neutr Abs (ANC) 12.43 (H) 1.50 - 6.30 x10(3)/mcL Lymphocytes % 11.3 % Lymphocytes Abs 1.7 1.0 - 3.6 x10(3)/mcL Monocytes % 7.1 % Monocyte Abs 1.1 (H) 0.2 - 1.0 x10(3)/mcL Eosinophils % 0.0 % Eosinophils Abs 0.0 0.0 - 0.5 x10(3)/mcL Basophils % 0.1 % Basophils Abs 0.0 0.0 - 0.2 x10(3)/mcL Immature Gran % 0.30 % Vita Gran Abs 0.05 0.00 - 0.05 x10(3)/mcL POCT urine Result Value Ref Range POC Urine HCG Negative Negative - Negative POC Control Internal Controls Acceptable Surgical Pathology Report Result Value Ref Range Surgical Pathology Report [id number] Location: ; BP09; B The signing pathologist has (i) examined the relevant preparation(s) for the specimen(s) and (ii) rendered or confirmed the diagnosis(es). . Surgical Pathology DIAGNOSIS Uterus, bilateral fallopian tubes and ovaries (hysterectomy and bilateral salpingo-oophorectomy): 1. Adnexal endometriosis. 2. Ovarian follicular cysts. 3. Bilateral benign fallopian tubes. 4. Superficial adenomyosis. 5. Tubo-ovarian and uterine serosal adhesions. CR-0 Electronically signed by: Cain Jalloh MD Verified: 03/06/2016 Pathologist CLINICAL INFORMATION Specimen Submitted: A - Uterus, cervix, tubes, ovaries Clinical History: Endometriosis Clinical Diagnosis: Same SPECIMEN PROCESSING A - Labeled/Fixative: Uterus, cervix, tubes, and ovaries, fresh. Qty/Size/Weight: Single, 9.1 x 6.4 x 5.2 cm, 82.0 grams (overall). Specimen Descri ption: Intact hysterectomy and bilateral salpingo-oophorectomy . UTERUS AND CERVIX Serosa: Red-pink, with numerous red-brown adhesions on the posterior serosal. Endometrium: The endometrial cavity measures 3.6 x 3.0 cm. The endometrium measures 0.1 cm in thickness. Myometrium: [place] and trabecular measuring 2.2 cm in thickness. Cervix: Smooth, glistening, pink measuring 3.6 x 3.2 cm. OVARIES AND FALLOPIAN TUBES Right ovary: Size: 2.0 x 1.5 x 1.4 cm Outer Surface: Yellow-pink with multiple red-brown adhesions. Cut Surface: Tadeo-white ovarian stroma with multiple cysts filled with brown material. Right Tube: 4.1 x 0.9 x 0.7 cm. Edematous malone-pink tubular portion of tissue with fimbriated end. Left Ovary Dimensions: 3.0 x 1.6 x 1.3 cm. Outer Surface: Yellow-pink, ragged with multiple red-brown adhesions. The fimbriated end of the fallopian tube is densely adhered to the surface of the ovary. Cut Surface: Tadeo-white, ovarian stroma with cysts f illed with brown material. Left Tube: 4.7 x 0.9 x 0.8 cm. Malone-pink tubular portion of tissue with fimbriated end. The surface is covered with numerous red-brown adhesions. . SPECIMEN PROCESSING SECTIONS/PROCESSING: (1) anterior cervix; (2) posterior cervix; (3) anterior endomyometrium; (4) posterior endomyometrium with serosal adhesions; (5) food service sales representatives sections of right ovary; (6) food service sales representatives sections of right fallopian tube; (7) food service sales representatives sections of left ovary; (8) food service sales representatives sections of left fallopian tube . (R8) cmn ASSESSMENT AND PLAN: 35 y.o. female s/p QUINTEN/BSO for endometriosis. Now for management of hormone replacement therapy long-term. She will continue her current regimen for another 6 months unless having any acute issues, then follow up to assess her status. Ari Francis MD, PhD, FACOG 5:01 PM documented in this encounter Plan of Treatment Not on file documented as of this encounter Visit Diagnoses Diagnosis Surgical menopause Symptomatic states associated with artificial menopause Symptomatic premature menopause Premature menopause documented in this encounter Care Teams Audio Specialist Relationship Specialty Start Date End Date None None PCP - General 04/27/15 03/25/22 documented as of this encounter
--- OUTSIDE RECORDS SUMMARY | 2024-02-19 07:07 | XMS_ITS | Encounter Summary ---
Author Organization [facility] [place] [address] Care Team Providers Care Pipelines Superintendent Name Role Phone Carol Randle APRN Primary Care Provider [phone] Reason for Visit * Reason Comments Leg Pain Encounter Details Date Type Department Care Team (Late st Contact Info) Description 04/11/2022 9:42 PM EDT - 04/11/2022 11:54 PM EDT [place] [address] Roxanne Foy MD [facility] [place] [address] Musculoskeletal leg pain, right Discharge Disposition: Home Social History Tobacco Use Types Packs/Day Years [...] Sign Reading Time Taken Comments Blood Pressure 140/105 04/11/2022 9:30 PM EDT Pulse 87 04/11/2022 9:30 PM EDT Temperature 36 ??C (96.8 ??F) 04/11/2022 9:30 PM EDT Respiratory Rate 18 04/11/2022 9:30 PM EDT Oxygen Saturation 97% 04/11/2022 9:30 PM EDT Inhaled Oxygen Concentration - - Weight 97.5 kg (215 lb) 04/11/2022 9:30 PM EDT Height - - Body Mass Index 33.75 11/26/2016 9:30 AM EDT documented in this encounter Discharge Instructions * Discharge Instructions* Theo Colon MD - 04/11/2022 11:24 PM EDT You were seen in the emergency department today for leg pain after feeling a pop in her right calf.Your symptoms could be explained by either a muscle strain or partial tear of a tendon in your lower leg. You did not have signs of injury requiring urgent surgery or imaging on physical exam. We recommend resting your right lower extremity, ice and/or heat, and elevating your leg. You may continue to do your physical therapy as tolerated and can take ibuprofen and/or Tylenol as instructed on thebottle for pain. Please return to the emergency department if you experience any worsening of your current symptoms or develop any new symptoms of concern. * Attachments The following attachments cannot be sent through Care Everywhere. * Muscle Strain ([place]) * Leg Pain ([place]) documented in this encounter Medications at Time of Discharge Medication Sig Dispensed Refills Start Date End Date fluticasone propionate (Flonase) 50 mcg/actuation [place], Suspension SPRAY TWO SPRAYS IN EACH NOSTRIL TWICE A DAY 04/01/2022 Symbicort 160-4.5 mcg/actuation HFA Aerosol Inhaler INHALE TWO PUFFS TWO TIMES A DAY RINSE, GARGLE, AND SPIT AFTER USING 04/01/2022 Spiriva Respimat 2.5 mcg/actuation Mist INHALE TWO PUFFS ONCE DAILY 04/04/2022 pantoprazole EC (Protonix) 40 mg Tablet, Delayed Release (E.C.) Take 40 mg by mouth 2 times daily. 01/26/2022 loratadine (Claritin) 10 mg Tablet Take 10 mg by mouth daily. 03/30/2022 folic acid (Folvite) 1 mg Tablet Take 1,000 mcg by mouth daily. 02/11/2022 montelukast (Singulair) 10 mg Tablet Take 10 mg by mouth every evening. 01/26/2022 cholecalciferol (Vitamin D3) 1,000 unit Tablet Take 1,000 Units by mouth daily. 12/15/2021 ibuprofen (Advil) 800 mg Tablet Take 800 mg by mouth as needed. 03/10/2022 metoclopramide (Reglan) 10 mg Tablet Take 10 mg by mouth as needed. 03/10/2022 10/19/2022 cyclobenzaprine (Flexeril) 10 mg Tablet Take 1 tablet by mouth 3 times daily as needed for Muscle spasms. No driving, no alcohol 10 tablet 07/19/2019 05/07/2022 naproxen (NAPROSYN) 500 mg Tablet Take 1 tablet by mouth 2 times daily (with meals). 20 tablet 07/19/2019 05/07/2022 PARoxetine (PAXIL) 20 mg Tablet Take one tablet by mouth every evening for two weeks, then increase to two tablets every evening. 90 tablet 5 11/26/2016 05/07/2022 norethindrone-ethinyl estradiol (FEMHRT LOW DOSE) 0.5-2.5 mg-mcg Tablet Take 2 tablets by mouth daily. 180 tablet 3 08/10/2016 05/07/2022 documented as of this encounter ED Notes * Theo Colon MD - 04/11/2022 11:17 PM EDT Milagros Maher is an 41 y.o. female who presents to the ED with: Chief Complaint Patient presents with ??? Leg Pain HPI: Milagros Maher is a 41 y.o. female who presents to the Emergency Department with right calf pain. She has recently started a new exercise regimen with physical therapy for deconditioning and reports doing a new elliptical exercise at her appointment with PT on 04/10. Earlier today when she was getting out of the car she felt a pop in her right calf. She denies new pain, weakness, swelling,erythema, deformity noted after feeling this pop. She called her PCP regarding this episode and it was recommended that she present for further evaluation prior to returning to physical therapy. She endorses generalized muscle aches in the lower extremities as a result of exercise, for which she has been taking Advil. She denies numbness and tingling of the right lower extremity. The pain is located over the medial side of her right calf and is worse with palpation and when she stands up on hertoes. Medications, allergies, past medical history, surgical history, family history, and social history were reviewed Patient was evaluated and discussed with Dr. Foy. Review of Systems: Pertinent positives and negatives are included in the HPI, otherwise at least ten systems were reviewed and negative. ED Triage Vitals [04/11/22 2130] BP: (!) 140/105 Heart Rate: 87 Resp: 18 Temp: 36 ??C (96.8 ??F) Temp src: Temporal SpO2: 97 % O2 Device: RA O2 Flow Rate (L/min): n/a Physical Exam: General: AOx3, no acute distress HENT: Normocephalic, atraumatic Mouth: moist oral mucosa Neck: rachea midline, no lymphadenopathy CV: Regular rate and rhythm, no peripheral edema Pulm: Symmetric chest rise, nonlabored breathing Abd: soft, nondistended, nontender to palpation MSK: Slight swelling of the right calf without other obvious gross deformity or erythema, pain withpalpation over the medial border of right gastrocnemius without palpable mass, negative Shaikh test, no pain with palpation of the Achilles, symmetrical contours of gastrocnemius and soleus bilaterally, intact toe walking, no pitting edema Skin: warm, dry Neuro: no gross deficits, no facial asymmetry, 5/5 strength with dorsiflexion and plantarflexion ofbilateral feet and 5/5 strength with flexion and extension of bilateral knees Psych: appropriate mood and affect Assessment and Plan: MDM: 41 y.o. female who presents for right calf pain. She had no obvious deformity to the right lower extremity and was able to ambulate and toe walk while in the emergency department. Given her history of feeling a pop prior to the right calf discomfort, there was concern for acute tendon injury. With her recent intensive exercise regimen, it is likely that a component of her calf pain is secondary to overuse injury versus normal muscle soreness after exercise. Her physical exam was not concerning for total tendon rupture of gastrocnemius tendon or Achilles tendon. She had a negative Shaikh test, no pain with palpation over the Achilles tendon, full strength and range of motion with plantarflexion, and symmetrical contours of gastrocnemius muscles bilaterally. Wells score for DVT -2,making DVT highly unlikely cause of her calf pain. At this time, the most likely cause of her symptoms is either partial tendon rupture, muscle sprain, gastrocnemius tendon strain, or normal musculosk eletal soreness after exertion. It was recommended that she avoid aggressive exercise involving herright leg until her symptoms improve. She was encouraged to take ibuprofen as instructed on the bottle to manage her pain as well as to use ice and/or heat over the affected area as needed. Return precautions were verbally discussed with the patient and written in discharge instructions. The patient and/or family expressed understanding of and agreement with the plan and that they can return to the emergency department at any time. Impression: 1. Musculoskeletal leg pain, right Dispo: Discharged home Theo Colon MD Resident 04/13/22 1415 Associated attestation - Roxanne Foy MD - 04/16/2022 7:12 PM EDT ED ATTENDING ATTESTATION NOTE The patient was seen in conjunction with the resident physician. I have independently performed thekey portions of the history and physical exam. I have reviewed the nursing notes, vital signs, and all diagnostic studies personally including labs, imaging studies and EKGs. I have discussed the details of the case with the resident and agree with the assessment and plan as described in the resident note unless noted otherwise. documented in this encounter Miscellaneous Notes * ED Triage - Ez Zamora RN - 04/11/2022 9:34 PM EDT Pt arrives ambulatory reporting R calf pain following new athletic work out program, I thought I heard a snap. Pt with full mobility it just hurts, no numbness or tingling, no discoloration or warmth. Advil taken at 17:30 today. Pt speaking in clear, logical and full sentences. Respiratory rateregular and unlabored. Skin appropriate color, warm and dry. Alert & oriented x4 documented in this encounter Plan of Treatment Not on file documented as of this encounter Visit Diagnoses Diagnosis Musculoskeletal leg pain, right documented in this encounter Care Teams Pipelines Superintendent Relationship Specialty Start Date End Date Carol Randle, JORDY PCP - General Family Medicine 03/26/22 documented as of this encounter
--- OUTSIDE RECORDS SUMMARY | 2024-02-19 07:07 | XMS_ITS | Encounter Summary ---
Author Organization [facility] [place] [address] Care Team Providers Care Director Of Safety Name Role Phone None Primary Care Provider Unavailabl e Reason for Visit * Reason Comments Follow-up Encounter Details Date Type Department Care Team (Late st Contact Info) Description 10/22/2016 10:45 AM EDT Office Visit Obstetrics [place] [address] Ari Francis MD [facility] [place] [address] Surgical menopause; Chronic pelvic pain in female; Depression, unspecified depression type Social History Tobacco Use Types Packs/Day [...] Sign Reading Time Taken Comments Blood Pressure 140/88 10/22/2016 10:55 AM EDT Pulse 84 10/22/2016 10:55 AM EDT Temperature 36.6 ??C (97.9 ??F) 10/22/2016 10:55 AM E DT Respiratory Rate 18 10/22/2016 10:55 AM EDT Oxygen Saturation 100% 10/22/2016 10:55 AM EDT Inhaled Oxygen Concentration - - Weight 82.4 kg (181 lb 9.6 oz) 10/22/2016 10:55 AM EDT Height - - Body Mass Index 28.44 04/25/2016 3:02 PM EDT documented in this encounter Progress Notes * Ari Francis MD - 10/22/2016 10:45 AM EDT I spent 30 minutes in [id number] care with the patient, of which 30 minutes was spent in counseling and discussion. Milagros presents in followup of her hormone replacement therapy after her hysterectomy and bilateral salpingo-oophorectomy for severe endometriosis. She states that her hot flashes are somewhat better on the hormone replacement therapy, but still symptomatic. Her biggest complaint today is her absolute lack of energy for several months, associated with some weight gain and poor sleep at night. She is falling asleep, but then she is waking up periodically. She states that she does have some sadness at times, mostly related to her children growing up too soon, but she denies any suicidal ideation. She states that her appetite is decreased, and she forces herself to eat at mealtimes but at other times, she may find herself hungry. She has not been very active, and she prefers to sleep on the couch when she gets home from work because she is tired all the time. She does have a history of depression one other time in her life that was situational and unsuccessfully managed with Wellbutrin, to which she had some adverse effect. She would be open to a trial of NSSRI for management of her hot flashes in conjunction with estrogen, with the hope that it may also bring some relief to her low energy and mood symptoms. She is in agreement to try Paxil at 10 mg daily for 2 weeks and then increase to 20 mg daily at bedtime. She has not been having any pelvic pain, and we discussed that increasing her estrogen dose is also an option or adding progesterone is an option as well should she not have relief of her symptoms with Paxil. We did recently check her thyroid, and I do not think that she is hypothyroid as an explanation for her symptoms. She will follow up in 4 to 6 weeks to assess her progress on this regimen and discuss any future strategies. documented in this encounter Plan of Treatment Not on file documented as of this encounter Visit Diagnoses Diagnosis Surgical menopause Symptomatic states associated with artificial menopause Chronic pelvic pain in female Unspecified symptom associated with female genital organs Depression, unspecified depression type documented in this encounter Care Teams Director Of Safety Relationship Specialty Start Date End Date None None PCP - General 04/27/15 03/25/22 documented as of this encounter
--- OUTSIDE RECORDS SUMMARY | 2024-02-19 07:07 | XMS_ITS | Encounter Summary ---
[facility] [place] [address] Care Team Providers Care Hose Tubing Backer Name Role Phone None Primary Care Provider Unavailabl e Reason for Visit * Reason Onset Date Comments Medication Refill 05/31/2016 Encounter Details Date Type Department Care Team (Late st Contact Info) Description 05/31/2016 Refill Obstetrics [place] [id number] Emily Archer Social History Tobacco Use Types Packs/Day Years [...] on filedocumented in this encounter Care Teams Hose Tubing Backer Relationship Specialty Start Date End Date None None PCP - General 04/27/15 03/25/22 documented as of this encounter
--- OUTSIDE RECORDS SUMMARY | 2024-02-19 07:07 | XMS_ITS | Encounter Summary ---
Author Organization [facility] [place] [address] Care Team Providers Care Utility Worker Film Processing Name Role Phone None Primary Care Provider Unavailabl e Reason for Visit * Reason Onset Date Comments Medication Reaction 08/09/2016 combipatch Encounter Details Date Type Department Care Team (Late st Contact Info) Description 08/09/2016 Telephone Obstetrics [place] [phone] Emily Archer Medication Reaction (combipatch) Social History Tobacco Use Types Packs/Day Years [...] encounter Miscellaneous Notes * Telephone Encounter - Emily Archer, RN - 08/09/2016 4:07 PM EST Caller: patient Learning Needs Assessment Reviewed: Yes Subjective Patient presents with: Medication Reaction: combipatch Objective/Assessment Symptom onset: 3 weeks Location: skin Duration: since onset Characteristics: redness, itchiness, hives(bumps) Aggravating factors: as stated above Relieving factors: removing patch Timing: since onset Severity: mild Pertinent Past Medical History: hysterectomy, HRT replacement with combipatch Plan Intervention/Plan/ Follow Up: patient calls with reports of reaction to combipatch, reports startedpatch last February or March with good effect. Reports over the last 3 weeks are under patch hasbecome red, itchy, and with bumps(hives), changes patches and occurs under the new are. Inquiring if she can try another medication. Reports good relief in menopause symptoms with HRT. Reviewed with MD Francis, will review records and then call in new oral medication for patient. Patient aware and will diamond picker new medication tonight or tomorrow evening. Patient requesting medication to be called into [facility] in [place], [place]. Will call clinic with further questions or concerns. documented in this encounter Plan of Treatment Not on file documented as of this encounter Visit Diagnoses Not on filedocumented in this encounter Care Teams Utility Worker Film Processing Relationship Specialty Start Date End Date None None PCP - General 04/27/15 03/25/22 documented as of this encounter
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
--- OUTSIDE RECORDS SUMMARY | 2024-02-19 07:07 | XMS_ITS | Encounter Summary ---
Author Organization [facility] Address [facility] [place] [address] Care Team Providers Care Sales Coordinator Name Role Phone None Primary Care Provider Unavailabl e Reason for Visit * Reason Comments Shoulder Pain Encounter Details Date Type Department Care Team (Late st Contact Info) Description 07/19/2019 2:00 PM EST - 07/19/2019 6:15 PM EST [place] [address] Brenton Davison III, MD [facility] [place] [address] Acute pain of left shoulder Discharge Disposition: Home Social History Tobacco Use [...] Sign Reading Time Taken Comments Blood Pressure 135/93 07/19/2019 6:09 PM EST Pulse 99 07/19/2019 1:34 PM EST Temperature 36.8 ??C (98.2 ??F) 07/19/2019 1:34 PM ES T Respiratory Rate 16 07/19/2019 1:34 PM EST Oxygen Saturation 94% 07/19/2019 6:09 PM EST Inhaled Oxygen Concentration - - Weight - - Height - - Body Mass Index - - documented in this encounter Discharge Instructions * Discharge Instructions* Don Herrera MD - 07/19/2019 5:41 PM EST - You have been prescribed Flexeril and Naproxen to be taken as needed for pain - You should continue to follow-up with Orthopedic Surgery and your Primary Care Physician as planned - If you have worsening or new symptoms including change in arm sensation, arm weakness, limb coolness you should be seen at your nearest emergency department documented in this encounter Medications at Time of Discharge Medication Sig Dispensed Refills Start Date End Date cyclobenzaprine (Flexeril) 10 mg Tablet Take 1 [...] as of this encounter ED Notes * Brenton Davison III, MD - 07/19/2019 6:15 PM EST Patient Name: Milagros Maher Patient Age: 39 y.o. Birthdate: 1980 Admit date: 07/19/2019 Attending Physician: No att. providers found ED attending attestation note The patient was seen in conjunction with the resident physician. I have independently performed keyportions of the history and physical exam. I have reviewed all diagnostic studies personally including labs, imaging studies, and electrocardiograms. Brief summary: Milagros presents because of pain at the site a superficial mass overlying her left scapula that she has been seeking medical attention. She apparently has an appointment with orthopedics next for further assessment. Physical exam reveals an afebrile, well appearing woman who is pleasant, smiling, and with a nontender mass seemingly consistent with a lipoma needing follow up for consideration of biopsy and no findings concerning for an acute process such as infection. Final assessment: Mass overlying left scapula Brenton Davison III, MD 07/25/19 0911 * Don Herrera MD - 07/19/2019 2:35 PM EST ED Resident Note Milagros Maher is an 39 y.o. female who presents to the ED with: Chief Complaint Patient presents with ??? Shoulder Pain HPI Milagros Maher is a 39 y.o. female with a history of anxiety and endometriosis s/p hysterectomy who presents to the Emergency Department for left shoulder pain. The patient states beginning 04/11 she noted new left shoulder pain with an associated small lump by her shoulder blade. This pain and lump have both worsened in pain level and size and have lead the patient to have a recent workup performed all at outside medical facilities. She was seen by her PCP roughly 2 weeks ago who did an x-ray and prescribed tramadol. The patient states something was noted abnormal on the exam but is notsure specifically what was seen. She was set up to be seen by Orthopedic Surgery at OSH this coming Saturday for further evaluation. Due to worsening pain at should and neck as well as headache she went to [facility] ED yesterday who performed a head CT which was normal per the patient. She was given a dose of steroids and as well as valium and discharged to home. She states the valium did not help her symptoms. She comes to the ED today for continued worsening shoulder pain that she can not tolerate. The pain is located around her entire shoulder and is constant. Using her arm makes the pain worse. It has been so severe it interrupts her sleep. She has been using Tylenol and NSAIDs for 6 weeks as well as mariajuana with minimal relief. She did not fill her valium script she got yesterday and has used 7/10 tramadol pills she received from her PCP. She denies other symptoms including change in hand sensation or motor function, extremity coolness, redness or drainage at swelling, unintended weight loss. She denies chest pain or shortness of breath. She believes she has undiagnosed migraines. She denies prior bone cancers or soft tissue masses. She denies prior left should surgery. She did have a fall on ice last winter to her left shoulder that lead to swelling but this resolved. Review of Systems: 10 point review of systems performed and negative except as noted in the HPI Relevant PMH, PSH, SH, medications and allergies reviewed and negative except as noted above. Physical Exam: Patient Vitals for the past 24 hrs: BP Temp Pulse Resp SpO2 07/19/19 1334 (!) 139/101 36.8 ??C (98.2 ??F) 99 16 97 % Physical Exam Constitutional: Appearance: Normal appearance. HENT: Head: Normocephalic and atraumatic. Nose: Nose normal. Mouth/Throat: Mouth: Mucous membranes are moist. Pharynx: Oropharynx is clear. Comments: Edentulous Eyes: Extraocular Movements: Extraocular movements intact. Conjunctiva/sclera: Conjunctivae normal. Pupils: Pupils are equal, round, and reactive to light. Neck: Musculoskeletal: Normal range of motion and neck supple. Cardiovascular: Rate and Rhythm: Normal rate and regular rhythm. Pulmonary: Effort: Pulmonary effort is normal. Breath sounds: Normal breath sounds. Abdominal: General: Abdomen is flat. Palpations: Abdomen is soft. Musculoskeletal: Normal range of motion. Left shoulder: She exhibits tenderness. She exhibits normal range of motion and no laceration. Comments: Left posterior shoulder notable for spongy, mobile, mildly tender, mass located at mid scapula, no erythema/warmth/drainage noted Skin: General: Skin is warm and dry. Neurological: General: No focal deficit present. Mental Status: She is alert and oriented to person, place, and time. Psychiatric: Mood and Affect: Mood normal. Behavior: Behavior normal. XR Shoulder Left (Generic) Final Result 1. No fracture or dislocation. 2. No bony mass identified, however, according to the ordering provider, the patient had outside radiographs which were not available at the time of this dictation. If the comparisons become available, an addendum can be made to this report. Thank you for letting us participate in the care of this patient. For questions regarding this report, please contact the number below. Labs Reviewed - No data to display ED Course and MDM - Patient seen under the supervision of BRENTON Mcguire III - Medications, allergies and past medical history reviewed - X-ray left shoulder (Negative for any acute findings or masses) Assessment: 39 y.o. female with a history of anxiety and endometriosis s/p hysterectomy who presents to the Emergency Department for left shoulder pain. Patient is currently undergoing workup including scheduled Orthopedic Surgery visit scheduled for next week. She comes to ED for continued worsening left shoulder pain. Evaluation including imaging reveals no etiology for worsening pain. Exam shows concern for possible lipoma that will require further outpatient management. Plan: - Scripts written for Flexeril and Naproxen - Follow up with Orthopedic Surgery as planned and Primary Care Physician as needed - Return precautions were verbally discussed with the patient and written in discharge instructions. The patient expressed understanding that they could come back to the ED at any time and agreed to the follow-up plan. The following line is for internal documentation purposes. @EDPROCEDURES@ Don Herrera MD Resident 07/19/191810 * Hyun Carreno PA - 07/19/2019 1:31 PM EST PROVIDER TRIAGE NOTE Patient: Milagros Maher Age (): 39 y.o. (1980) CC: Mass on L shoulder, headache, neck pain HPI: Milagros Maher is a 39 y.o. female with PMH significant for MDD and surgical menopause who presented to the ED for increasing size of L shoulder mass with associated shoulder, headache, and neckpain. Had an XR with abnormality noted 2 weeks ago (unsure exactly what). Has appointment with ortho pedic surgery on Saturday. Was seen at ED in [facility] for the same and was sent home on Valium after CT head was negative for abnormality. PCP prescribed tramadol last week which has been helping somewhat. Taking 800mg ibuprofen 2x daily and 1000mg APAP 2x daily. PE: BP (!) 139/101 (Patient Position: Sitting) Pulse 99 Temp 36.8 ??C (98.2 ??F) Resp 16 LMP 01/22/2016 Comment: irregular SpO2 97% Patient well-appearing, no acute distress. PLAN: XR L shoulder. Repeat examination, obtain further diagnostics as indicated, and ongoing evaluation/management per ED provider. Hyun Carreno PA 07/19/19 1351 documented in this encounter Plan of Treatment Not on file documented as of this encounter Procedures Procedure Name Priority Date/Time Associated Diagnosis Comments XR SHOULDER LEFT STAT 07/19/2019 2:47 PM EST documented in this encounter Results * XR Shoulder Left (Generic) (07/19/2019 2:47 PM EST) Anatomical Region Laterality Modality Shoulder Left Digital Radiogra phy Impressions 07/19/2019 3:17 PM EST 1. ??No fracture or dislocation. 2. ??No bony mass identified, however, according to the ordering provider, the patient had outside radiographs which were not available at the time of this dictation. If the comparisons become available, an addendum can be made to this report. Thank you for letting us participate in the care of this patient. For questions regarding this report, please contact the number below. ? Narrative 07/19/2019 3:17 PM EST EXAMINATION: XR SHOULDER LEFT (GENERIC) CLINICAL HISTORY: L shoulder pain and mass TECHNIQUE: 4 views left shoulder. COMPARISON: None FINDINGS: No fracture or dislocation. No periostitis or aggressive lesion of bone. There is normal glenohumeral and acromioclavicular alignment. No bony mass identified. Procedure Note Ted Max MD - 07/19/2019 EXAMINATION: XR SHOULDER LEFT (GENERIC) CLINICAL HISTORY: L shoulder pain and mass TECHNIQUE: 4 views left shoulder. COMPARISON: None FINDINGS: No fracture or dislocation. No periostitis or aggressive lesion of bone. There is normal glenohumeral and acromioclavicular alignment. No bonymass identified. IMPRESSION 1. No fracture or dislocation. 2. No bony mass identified, however, according to the ordering provider,the patient had outside radiographs which were not available at the time ofthis dictation. If the comparisons become available, an addendum can be made tothis report. Thank you for letting us participate in the care of this patient. Forquestions regarding this report, please contact the number below. Electronically signed by: DAREN Marr Replaced By [facility]([phone]), at 07/19/2019 3:17 PM Wilian Richardson MD IMG DX ORDERABLES documented in this encounter Visit Diagnoses Diagnosis Acute pain of left shoulder documented in this encounter Care Teams Sales Coordinator Relationship Specialty Start Date End Date None None PCP - General 04/27/15 03/25/22 documented as of this encounter
--- OUTSIDE RECORDS SUMMARY | 2024-02-19 07:07 | XMS_ITS | Encounter Summary ---
[place] [address] Care Team Providers Care Interpreter Deaf Name Role Phone None Primary Care Provider Unavailabl e Reason for Referral * Consultation (Routine) - Closed Specialty Diagnoses / Procedures Referred By Jarad t Referred To Contact Gastroenterology Diagnoses Fatty infiltration of liver fatty liver Carol Randle APRN [address] [place] [address] [facility] [address] [place] [address] Referral ID Status Reason Start Date Expiration Date V isits Requested Visits Authorized [id number] Closed Consult, Test & Treat 03/07/2022 03/07/2023 1 1 Encounter Details Date Type Department Care Team (Latest Contact Info) Description 03/07/2022 Transcribe Orders eDH Incoming Referrals [phone] Carol Randle APRN [address] [place], [place] [id number] Fatty infiltration of liver (Primary Dx) Social History Tobacco Use Types [...] Priority Associated Diagnoses Order Schedule Referral to Gastroenterology Outpatient Referral Routine Fatty infiltration of liver Ordered: 03/07/2022 documented as of this encounter Visit Diagnoses Diagnosis Fatty infiltration of liver- Primary Other chronic nonalcoholic liver disease documented in this encounter Care Teams Interpreter Deaf Relationship Specialty Start Date End Date None None PCP - General 04/27/15 03/25/22 documented as of this encounter
--- OUTSIDE RECORDS SUMMARY | 2024-02-19 07:07 | XMS_ITS | Encounter Summary ---
Author Organization [facility] [place] [address] Care Team Providers Care Human Resources Benefits Coordinator Name Role Phone Carol Randle APRN Primary Care Provider [phone] Encounter Details Date Type Department Care Team (Late st Contact Info) Description 06/05/2022 9:00 AM EST Notes Only Weight and Wellness at [facility] [address] [place] [id number] Bertin Bobo Social History Tobacco Use Types Packs/Day Years [...] as of this encounter Progress Notes * Bertin Bobo - 06/05/2022 9:00 AM EST Milagros Maher is here today at the request of Dr. Delgado for lifestyle coaching for weight control and overall health. FIRST VISIT 1. Clarify BIG WHY: need support, support and improve health 2. Assess Strengths: knowledge, resilient 3. Review Healthy habits guidelines for exercise, sleep, and stress- see below 4. Teach SMART goals and practice setting one(connect to BIG WHY, pillars). 5. Remind Patient to review info in Welcome Packet: 6. Review Pathways (note any questions): Review specific goals if any from provider Goals ??? have protein-containing breakfast ??? TRACK food intake BAYRON such as myfitnesspal or Lose it, or pen and paper. If using bayron or activity monitor, don't add in extra calories for the calories you burn. ??? work on NOT getting out of bed to eat Exercise walking Stress Health challenges are stressful yet have agood practice of sitting by river, breathing exercises Self-monitoring What are you doing now? If no personal accountability process, what can you add? [x]Food log: [] daily [x] intermittent []Weigh-ins: [] daily [] weekly [x]Exercise log [x]Gratitude journal []Other: Food Behaviors (optional): Busy right Ow with end of semester so eating on the fly often, had gall bladder removed and am tracking how I react to and after foods Future follow-up with health assistant field hockey coach will address identified areas of concern: [x] Exercise [x]Sleep [x]Stress []Accountability []Food Behaviors [x]Self-compassion Below are guidelines for optimal health that will help you, OVER TIME, to achieve. We do not expectyou to adopt everything all at once or make huge leaps. We don't even expect that you will achieve them all because nobody is perfect! Nutrition: Whole food, quality diet, more plants. (See the back page of your Welcome Book). This everett general recommendation for all patients. Your dietitian and provider will help make more specificrecommendations for you if appropriate. Avoid drinking your calories in the form of fruit juice, soda pop or other sweetened beverages. Choose water. Activity: to maintain weight loss evidence supports 360-420 minutes per week (60min daily). Each week, 1 hour of this time should be divided into 2 or 3 sessions of resistance (weight) training. The rest would be cardio. We do not know the threshold for non-structured activity, but if you are taking about 10,000 steps daily, you may be meeting this goal for cardiac activity. You can build your activity level slowly and methodically. Your Weight&Wellness team will help you develop a plan that works for you. Sleep: 7-8 hours of restful sleep per night with minimal or no interruptions. If this is not happening, talk to your provider about how we can help. Self-monitoring: most people benefit from some form of accountability. This can be: food tracking- either in an bayron or on paper, monitoring weight daily or monthly, exercise tracking. Pick something to track. Stress management: managing stress comes in many different forms from meditation to exercise to simply increasing mindfulness throughout the day. Your health assistant field hockey coach is well-equipped to guide you to find something to look forward to everyday. Eating behaviors: many people benefit from restricting the hours in which they eat. You can choose an eating window of 8-12 hours to start. Make a pact with yourself that you will not take in anything with caloric content outside this window. Your skid worker may make further recommendations documented in this encounter Plan of Treatment Not on file documented as of this encounter Goals Goal Patient Goal Type Associated Problems Recent Progress Patient-Stated? Author TRACK food intake Lifestyle No Alfreda Delgado MD Note: BAYRON such as Hand Talkpal or Lose it, or pen and paper. If using bayron or activity monitor, don't add in extra calories for the calories you burn. work on NOT getting out of bed to eat Lifestyle No Alfreda Delgado MD have protein-containin g breakfast Lifestyle No Alfreda Delgado MD self-awareness and goal setting Lifestyle No Bertin Bobo Note: Draft a [employer]. documented as of this encounter Visit Diagnoses Not on filedocumented in this encounter Care Teams Human Resources Benefits Coordinator Relationship Specialty Start Date End Date Carol Randle APRN PCP - General Family Medicine 03/26/22 documented as of this encounter
--- OUTSIDE RECORDS SUMMARY | 2024-02-19 07:07 | XMS_ITS | Encounter Summary ---
Author Organization [facility] Address [facility] [place] [address] Care Team Providers Care Rn Concurrent Review Name Role Phone Carol Randle APRN Primary Care Provider [phone] Encounter Details Date Type Department Care Team (Late st Contact Info) Description 06/03/2022 Orders Only Weight and Wellness at [facility] [address] [place] [id number] Alfreda Delgado MD [facility] [place] [address] Social History Tobacco Use Types Packs/Day Years [...] Alfreda Delgado MD Note: BAYRON such as [employer] or Lose it, or pen and paper. If using bayron or activity monitor, don't add in extra calories for the calories you burn. work on NOT getting out of bed to eat Lifestyle No Alfreda Delgado MD have protein-containin g breakfast Lifestyle No Alfreda Delgado MD documented as of this encounter Visit Diagnoses Not on filedocumented in this encounter Care Teams Rn Concurrent Review Relationship Specialty Start Date End Date Carol Randle APRN PCP - General Family Medicine 03/26/22 documented as of this encounter
--- OUTSIDE RECORDS SUMMARY | 2024-02-19 07:07 | XMS_ITS | Encounter Summary ---
Author Organization [facility] [place] [address] Care Team Providers Care Sap Bi Architect Name Role Phone Carol Randle APRN Primary Care Provider [phone] Reason for Referral * Consultation (Routine) - Closed Specialty Diagnoses / Procedures Referred By Contac t Referred To Contact General Surgery Diagnoses Dysfunctional gallbladder Thony Laguerre PA [address] [place] [address] [facility] Gen Surgery [address] [place] [address] Referral ID Status Reason Start Date Expiration Date V isits Requested Visits Authorized [id number] Closed Consult, Test & Treat 05/27/2022 05/27/2023 1 1 Encounter Details Date Type Department Care Team (Late st Contact Info) Description 05/27/2022 Orders [place] [address] Thony Laguerre PA [address] [place] [address] Dysfunctional gallbladder Social History Tobacco Use Types Packs/Day [...] Scheduled Referrals Name Type Priority Associated Diagnoses Orde r Schedule Referral to General Surgery Outpatient Referral Routine Dysfunctional gallbladder Ordered: 05/27/2022 documented as of this encounter Goals Goal Patient Goal Type Associated Problems Recent Progress Patient-Stated? Author TRACK food intake Lifestyle No Alfreda Delgado MD Note: BAYRON such as eTect or Recommendi it, or pen and paper. If using bayron or activity monitor, don't add in extra calories for the calories you burn. work on NOT getting out of bed to eat Lifestyle No Alfreda Delgado MD have protein-containin g breakfast Lifestyle No Alfreda Delgado MD documented as of this encounter Visit Diagnoses Diagnosis Dysfunctional gallbladder documented in this encounter Care Teams Sap Bi Architect Relationship Specialty Start Date End Date Carol Randle APRN PCP - General Family Medicine 03/26/22 documented as of this encounter
--- OUTSIDE RECORDS SUMMARY | 2024-02-19 07:07 | XMS_ITS | Encounter Summary ---
Author Organization [place] [address] Care Team Providers Care Production Dispatcher Name Role Phone None Primary Care Provider Unavailabl e Encounter Details Date Type Department Care Team (Late st Contact Info) Description 10/12/2021 Ancillary Procedure [place] [address] Carol Randle APRN [address] [place] [address] Social History Tobacco Use Types Packs/Day Years [...] Procedure Name Priority Date/Time Associated Diagnosis Comments FILM LIBRARY STORAGE ONLY ULTRASOUND STUDY Routine 10/12/2021 12:00 AM EDT documented in this encounter Results * Film Library- Storage Only Ultrasound Study (10/12/2021 12:00 AM EDT) Narrative [facility] - 03/07/2022 2:25 PM EDT This exam is auto-finalizing. It's purpose is for storage only. Carol Randle APRN IMG FILM LIBRARY ORD ERABLES [place], [place] documented in this encounter Visit Diagnoses Not on filedocumented in this encounter Care Teams Production Dispatcher Relationship Specialty Start Date End Date None None PCP - General 04/27/15 03/25/22 documented as of this encounter
--- OUTSIDE RECORDS SUMMARY | 2024-02-19 07:07 | XMS_ITS | Encounter Summary ---
Author Organization [facility] Address [facility] [place] [address] Care Team Providers Care Window Glass Cutter Off Name Role Phone None Primary Care Provider Unavailabl e Reason for Referral * Consultation (Routine) - Closed Specialty Diagnoses / Procedures Referred By Contac t Referred To Contact Thoracic Surgery Diagnoses Nicotine dependence, cigarettes, uncomplicated Tobacco abuse counseling Ari Francis MD [facility] [place] [address] Candice Wilson APRN [facility] [place] [address] Referral ID Status Reason Start Date Expiration Date V isits Requested Visits Authorized [id number] Closed Consult, Test & Treat 11/26/2016 11/26/2017 1 1 Reason for Visit * Reason Comments Follow-up Encounter Details Date Type Department Care Team (Late st Contact Info) Description 11/26/2016 9:30 AM EDT Office Visit Obstetrics [place] [address] Ari Francis MD [facility] [place] [address] Nicotine dependence, cigarettes, uncomplicated; Tobacco abuse counseling; Hormone replacement therapy (postmenopausal); H/O hysterectomy for benign disease Social History Tobacco Use Types Packs/Day Years [...] Sign Reading Time Taken Comments Blood Pressure 122/78 11/26/2016 9:30 AM EDT Pulse 83 11/26/2016 9:30 AM EDT Temperature 36.6 ??C (97.9 ??F) 11/26/2016 9:30 AM ED T Respiratory Rate 14 11/26/2016 9:30 AM EDT Oxygen Saturation 100% 11/26/2016 9:30 AM EDT Inhaled Oxygen Concentration - - Weight 82.4 kg (181 lb 10.5 oz) 11/26/2016 9:30 AM EDT Height 170 cm (5' 6.93) 11/26/2016 9:30 AM EDT Body Mass Index 28.51 11/26/2016 9:30 AM EDT documented in this encounter Patient Instructions * Patient Instructions* Ari Francis MD - 11/26/2016 9:47 AM EDT Tobacco Treatment: Resources It is recommended that you quit smoking. You may be referred to the Tobacco Treatment Program to assist you in your quit plan. For more information or to make an appointment call . Call 9-286-JETW-NOW ( ) for [place] or [place] residents for free telephone support for quittingtobacco. Online: www.smokefree.gov Tobacco Treatment: Nicotine Replacement Instructions Nicotine patch instructions: Place the patch on your skin in an area that has a minimal amount of hair, typically between the neck and waist or upper arms. Avoid placing it over scars or tattoos. Change the place where you put it on your skin daily. Remove the patch each morning and replace with a new patch. Fold the patch in half, with the sticky sides in and dispose of it safely, keeping it out of reach of children or pets. Some patients experience nightmares or bad dreams on the patch. If this happens you should remove the patch at bedtime and just replace it each morning. The nicotine patch releases a constant amount of nicotine in the body. The nicotine dissolves rightthrough the skin and enters the body. Less nicotine is obtained through the patch than in cigarettes. The patch does NOT contain all the tars and poisonous gases that are found in cigarettes. Side effects from wearing the patch can include: headaches, dizziness, upset stomach, weakness, blurred vision, vivid dreams, mild itching and burning on the skin, and diarrhea. Wearing the nicotine patch decreases the chances of suffering from several of the major smoking withdrawal symptoms such as tenseness, irritability, drowsiness and lack of concentration. The nicotine patch can be combined with other Nicotine Replacement Therapy products such as Nicotine gum or lozenges. Ask your healthcare provider about combination therapy to increase your chances of successfully quitting tobacco for good! The US Food and Drug Administration has recently released a statement that there are no significantrisks associated with the use of Nicotine Replacement Therapy products for longer than the labeled number of weeks of use. If you are still having strong cravings to smoke or are struggling to quit completely while using the Nicotine patch talk with your healthcare provider for additional help. Nicotine gum instructions: Nicotine gum must be used properly in order to be effective. Nicotine from Nicotine gum is absorbedthrough the mucous membranes in your mouth at a certain acidity or pH level. Therefore do not eat or drink anything but water for 15 minutes prior to or during use. It should be chewed until a peppery sensation is felt in the mouth and then parked between the cheek and gum until that sensation is gone, then begin chewing again until the peppery feeling comes back again, parking and chewing as described until all of the peppery sensation has gone from the gum. This may take 20-30 minutes. Try tonot swallow the saliva or it may cause an upset stomach. The gum is to be disposed of carefully in the trash where no pets or young children could get ahold of it, as there is always a small amount of nicotine left in the remains of the gum and could sicken a child or pet. The nicotine gum comes in two strengths, 2 mg and 4 mg. You should use the 2 mg gum if you smoke your first cigarette more than 30 minutes after waking. You should use the 4 mg gum if you smoke your first cigarette less than 30 minutes after waking. Chew enough Nicotine gum to reduce withdrawal symptoms, usually starting by chewing a piece of gum every 1-2 hours for the first few days after quitting. Common side effects from Nicotine gum include mouth soreness, hiccups, upset stomach, jaw ache. These usually do not last long and can be reduced or eliminated by correct use of the gum. Nicotine gum can be combined with Nicotine patches for increased chances of successfully quitting tobacco for good! The US Food and Drug Administration has recently released a statement that there are no significantrisks associated with the use of Nicotine Replacement Therapy products for longer than the labeled number of weeks of use. Maximum dosage is 24 pieces of Nicotine gum/24 hours. Nicotine lozenge instructions: Nicotine lozenges must be used properly in order to be effective. Nicotine from the lozenge is absorbed through the mucous membranes in your mouth at a certain acidity or pH level. Therefore do not eat or drink anything but water for 15 minutes prior to or during use. Place the nicotine lozenge on the tongue or between the cheek and the jaw. Allow the lozenge to dissolve. Do not bite, chew or swallow whole or in pieces. Do not work the lozenge like a hard candy or you may create too much saliva and swallow this extra liquid which may upset your stomach. The most common side effects from Nicotine lozenges are nausea, hiccups and heartburn. This can be reduced by following the instructions for proper use. Nicotine lozenges come in two strengths, 2 mg and 4 mg. You should use the 2 mg lozenge if you smoke your first cigarette more than 30 minutes after waking. You should use the 4 mg lozenge if you smoke your first cigarette less than 30 minutes after waking. Nicotine lozenges can be combined with Nicotine patches for increased chances of successfully quitting tobacco for good! The US Food and Drug Administration has recently released a statement that there are no significantrisks associated with the use of Nicotine Replacement Therapy products for longer than the labeled number of weeks of use. Maximum dose is 20 lozenges/24 hours. Nicotine inhaler instructions: One dose of nicotine from the inhaler consists of a puff or inhalation. Each cartridge delivers a total of 4 mg of nicotine over 80 inhalations. The recommended dosage is 6-16 cartridges a day. The nicotine is delivered in the form of an inhaler. Nicotine from the inhaler is absorbed through the mucous membranes in your mouth at a certain acidity or pH level. Therefore do not eat or drink anything but water for 15 minutes prior to or during use. Delivery of nicotine from the inhaler declines significantly at temperatures below 40 degrees F. Incold weather, the inhaler and cartridges should be kept in an inside pocket or other warm area. Common side effects include local irritation in the mouth and throat. Coughing and runny nose can also occur. These are generally mild and decline with continued use. The US Food and Drug Administration has recently released a statement that there are no significantrisks associated with the use of Nicotine Replacement Therapy products for longer than the labeled number of weeks of use. References: Treating Tobacco Use and Dependence, Clinical Practice Guideline 2008 Update, U.S. Department of Health and Human Services, October 2007 U.S. Food and Drug Administration Recommendations, revised directions for use of Nicotine Replacement Therapy , September 23, 2012: https://www.federalregister.gov/articles//2013-21766/modifications-to- imfltelj-vt-pfmodsgw-qrffszyzvds-cvxpkrw-jdfnxsga-usu-pind-pqt-cepfolz-yrekg-niw documented in this encounter Progress Notes * Ari Francis MD - 11/26/2016 9:30 AM EDT Milagros is here in followup today for her depression and her posthysterectomy, post oophorectomy, and hot flashes. She states that she is doing much better and has been on her 20 mg dose of Paxil for about 3 weeks now. She has been walking in the mornings and feeling in a much brighter mood than she previously was. Her hot flashes are minimal and she is sleeping through the night. She is also interested in smoking cessation. She has tried a few routes through the [place] Tobacco Cessation Program in the past and been unsuccessful but she is highly motivated by her new exercise routine and she wants to be able to run with her son by the end of the year. On physical exam, she has a bright affect, normal neuro exam, and normocephalic otherwise. Her vital signs are stable. ASSESSMENT AND PLAN: She is now 9 months status post TLH/BSO for endometriosis and chronic pelvic pain. Her pelvic pain has resolved and her hot flashes are now under good control with combined hormone replacement therapy. She is interested in smoking cessation which we discussed makes it safer to continue her moderate dose combined hormone replacement therapy long-term. I will refer to the Smoking Cessation Program. We will continue her on her current dose of Paxil 20 mg once a day as her symptoms are significantly improved and she has likely not reached maximum benefit. She will identify a primary care physician in her local area, to whom we can transfer care. If she does not find someone by the fall, she will come back and check in with me for her ongoing issues. documented in this encounter Plan of Treatment Scheduled Referrals Name Type Priority Associated Diagnoses Orde r Schedule Referral to Smoking Cessation Program Outpatient Referral Routine Nicotine dependence, cigarettes, uncomplicated Tobacco abuse counseling Ordered: 11/26/2016 documented as of this encounter Visit Diagnoses Diagnosis Nicotine dependence, cigarettes, uncomplicated Tobacco abuse counseling Counseling on substance use and abuse Hormone replacement therapy (postmenopausal) Need for prophylactic hormone replacement therapy (postmenopausal) H/O hysterectomy for benign disease Acquired absence of both cervix and uterus documented in this encounter Care Teams Window Glass Cutter Off Relationship Specialty Start Date End Date None None PCP - General 04/27/15 03/25/22 documented as of this encounter
--- OUTSIDE RECORDS SUMMARY | 2024-02-19 07:07 | XMS_ITS | Encounter Summary ---
Author Organization [facility] [place] [address] Care Team Providers Care Fly Rail Operator Name Role Phone None Primary Care Provider Unavailabl e Encounter Details Date Type Department Care Team (Late st Contact Info) Description 03/06/2022 Ancillary Procedure [place] [address] Carol Randle APRN [address] [place] [address] Social History Tobacco Use Types Packs/Day Years [...] Associated Diagnosis Comments FILM LIBRARY STORAGE ONLY CT ABDOMEN AND PELVIS Routine 03/06/2022 12:00 AM EDT documented in this encounter Results * Film Library- Storage Only CT Abdomen & Pelvis (03/06/2022 12:00 AM EDT) Narrative [facility] - 03/07/2022 3:12 PM EDT This exam is auto-finalizing. It's purpose is for storage only. Carol Randle APRN IMG FILM LIBRARY ORD ERABLES [facility] [place], [place] documented in this encounter Visit Diagnoses Not on filedocumented in this encounter Care Teams Fly Rail Operator Relationship Specialty Start Date End Date None None PCP - General 04/27/15 03/25/22 documented as of this encounter
--- OUTSIDE RECORDS SUMMARY | 2024-02-19 07:07 | XMS_ITS | Encounter Summary ---
Author Organization [facility] Address [facility] [place] [address] Care Team Providers Care Cord Tire Builder Name Role Phone Carol Randle APRN Primary Care Provider [phone] Encounter Details Date Type Department Care Team (Latest Contact Info) Description 05/24/2022 Travel Social History Tobacco Use Types Packs/Day [...] Alfreda Delgado MD Note: BAYRON such as Leg[employer]pal or Lose it, or pen and paper. If using bayron or activity monitor, don't add in extra calories for the calories you burn. work on NOT getting out of bed to eat Lifestyle No Alfreda Delgado MD have protein-containin g breakfast Lifestyle No Alfreda Delgado MD documented as of this encounter Visit Diagnoses Not on filedocumented in this encounter Care Teams Cord Tire Builder Relationship Specialty Start Date End Date Carol Randle APRN PCP - General Family Medicine 03/26/22 documented as of this encounter
--- OUTSIDE RECORDS SUMMARY | 2024-02-19 07:07 | XMS_ITS | Encounter Summary ---
Author Organization [facility] Address [facility] [place] [address] Care Team Providers Care Spring Machine Operator Name Role Phone Carol Randle APRN Primary Care Provider [phone] Encounter Details Date Type Department Care Team (Late st Contact Info) Description 08/21/2022 10:30 AM EST TH Visit (TeleHealth) [place] [address] [facility] [place] [address] Adult BMI 33.0-33.9 kg/sq m Social History [...] * Patient Instructions* Taty Vickers RD - 08/21/2022 10:30 AM EST Nutrition Goals: Establish exercise routine - continue walking, consider increasing to moderate intensity walking; continue resistance band exercise, focus on consistency Establish consistent meal routine - 3 meals a day spaced evenly throughout day; Continue balanced plate - 1/2 plate vegetables, 1/4 plate protein, 1/4 plate high quality carbohydrate; choose protein at every eating event; increasing vegetable intake; Consider reducing coffee intake documented in this encounter Progress Notes * Taty Vickers RD - 08/21/2022 10:30 AM EST Nutrition Intervention for Weight Management Follow-up RD visit with CRISTINA Thurman 1980 Patient confirms visit conducted while patient was in the following state: [place] Weight Today: Wt Readings from Last 3 Encounters: 05/23/22 97.1 kg (214 lb) 05/07/22 97.3 kg (214 lb 6.4 oz) 04/11/22 97.5 kg (215 lb) BMI Readings from Last 3 Encounters: 05/23/22 33.77 kg/m?? 05/07/22 33.83 kg/m?? 04/11/22 33.75 kg/m?? Interview: wasn't paying attention to diet while waiting for gallbladder surgery; surgery was July 06, no complications from surgery; trying to get routine with new semester at school, taking 4 courses; working on balance; headache from being in front of the screen, recent vision exam - needto order new glasses; Smoking: smoking - 3/4pack a day; primary care provided referral to therapist - appt beginning of September; Typical Dietary Intake: irregular meal plan, 2-3 meals/day; 6am 3-4x/week B: armenian muffin, peanut butter, coffee 10am-1pm L: chicken salad, 6-8pm D: pizza OR chili, veggies, Typical Beverages: coffee 8 cups/day; water - 12oz, 5x/day; seltzer 1-2 12oz cans/day; Appetite/Hunger: [x] feels managed with foods/meals outlined above [] discussed meal/snack schedule adjustment today- see goals [] patient identifies eating for reasons other than hunger- see interview Food Tracking: [] Current food Tracking [] Discussed potential benefit starting food tracking - see goals [] Food tracking not appropriate for patient at this time [x] Did not discuss today Previous Goals: Goals ??? Exercise 3x per week (10-15 min per time) Try qigong and t'ai chi. ??? have protein-containing breakfast ??? Nutrition - 2/28/23 Nutrition Goals: ??? Establish exercise routine - continue walking, consider increasing to moderate intensity walking; continue resistance band exercise, focus on consistency ??? Establish consistent meal routine - 3 meals a day spaced evenly throughout day; ??? Continue balanced plate - 1/2 plate vegetables, 1/4 plate protein, 1/4 plate high quality carbohydrate; choose protein at every eating event; increasing vegetable intake; ??? self-awareness and goal setting Draft a Wellness Vision. ??? TRACK food intake BAYRON such as Shopping Mail or Lose it, or pen and paper. If using bayron or activity monitor, don't add in extra calories for the calories you burn. ??? work on NOT getting out of bed to eat Other topics discussed: [] Eating an appropriate amount of food for [...] eat [] Distraction [] Food environment Activity: walking puppy daily; some resistance band work [x] reviewed current goals [] updated goals [] Did not discuss today Nutrition Goals updated today: (1) establish exercise routine, try resistance bands (2) consistent meal routine (3) choose protein every eating event, double vegetables to protein (4) consider reducing coffee Monitor/Evaluate: Return in about 2 months (around 10/19/2022) for Jean-Claude HUDSON. Aim for 5-10% weight loss from ABW x 3-6 months from initial visit Thank you Taty Vickers MS, RDN LD 30 minutes were spent in visit today, including contact with patient, chart review, and documentation documented in this encounter Plan of Treatment Not on file documented as of this encounter Goals Goal Patient Goal Type Associated Problems Recent Progress Patient-Stated? Author TRACK food intake Lifestyle No Alfreda Delgado MD Note: BAYRON such as Nujipal or Lose it, or pen and paper. [...] adult documented in this encounter Care Teams Spring Machine Operator Relationship Specialty Start Date End Date Carol Randle APRN PCP - General Family Medicine 03/26/22 documented as of this encounter
--- OUTSIDE RECORDS SUMMARY | 2024-02-19 07:07 | XMS_ITS | Encounter Summary ---
Author Organization [facility] [place] [address] Care Team Providers Care Ada Accommodation Consultant Name Role Phone None Primary Care Provider Unavailabl e Reason for Visit * Reason Comments Follow-up fabiola Encounter Details Date Type Department Care Team (Late st Contact Info) Description 02/06/2016 8:00 AM EDT Office Visit Obstetrics [place] [address] Ari Francis MD [facility] DR OBSTETRICS & [place] [address] Endometriosis Social History Tobacco Use Types Packs/Day [...] Sign Reading Time Taken Comments Blood Pressure 134/68 02/06/2016 8:02 AM EDT Pulse 88 02/06/2016 8:02 AM EDT Temperature 36.9 ??C (98.4 ??F) 02/06/2016 8:02 AM ED T Respiratory Rate 14 02/06/2016 8:02 AM EDT Oxygen Saturation 99% 02/06/2016 8:02 AM EDT Inhaled Oxygen Concentration - - Weight 82.6 kg (182 lb 1.6 oz) 02/06/2016 8:02 A M EDT Height 169 cm (5' 6.54) 02/06/2016 8:02 AM EDT Body Mass Index 28.92 02/06/2016 8:02 AM EDT documented in this encounter Progress Notes * Luis Felipe Beard LPN - 02/06/2016 8:00 AM EDT Encounter Diagnosis Name Primary? Endometriosis Depo Lupron Siteright gluteus yelena: 11.25 mg Ordering Provider:Ari Francis Date of order:02/06/2016 Patient tolerated injection well. * Ari Francis MD - 02/06/2016 8:00 AM EDT Chief Complaint Patient presents with ??? Follow-up lupron HPI: Milagros Maher is a 35 y.o. female She is seen in followup today after her last injection of Depot Lupron. She has been using Provera 5 mg daily as her hormone replacement therapy and hopes that this will be better tolerated for her than Aygestin. She states that with her Provera she has had breakthrough bleeding and she has had pelvic pain with that bleeding. She much preferred the occasional headaches that she was getting with the Aygestin as she was not having any bleeding or pelvic pain along with that. She does feel that she is at the point where she really does want a hysterectomy plus or minus oophorectomy for her endometriosis. She has a surgical diagnosis, she has ongoing pelvic pain, and she is finished with her childbearing. She understands that she would go through early menopause, but feels like her quality of life is very important at this point. Review of Systems - General- no fever, chills GI-- no N/V, diarrhea - no frequency/ hematuria/incontinence All other systems reviewed and negative Patient Active Problem List Diagnosis Code ??? Endometriosis N80.9 ??? Chronic pelvic pain in female R10.2, G89.29 Current Outpatient Prescriptions: ??? medroxyPROGESTERone (PROVERA) 2.5 mg Tablet, Take 1 tablet by mouth daily., Disp: 30 tablet, Rfl: PRN ??? norethindrone (AYGESTIN) 5 mg Tablet, Take 1 tablet by mouth daily. Daily (Patient not taking: Reported on 02/06/2016), Disp: 90 tablet, Rfl: 3 No current facility-administered medications for this visit. Wt Readings from Last 3 Encounters: 02/06/16 82.6 kg (182 lb 1.6 oz) 10/24/15 81.2 kg (179 lb) 07/25/15 78.9 kg (174 lb) Vitals: 02/06/16 0802 BP: 134/68 BP Location (NBP): Right arm Patient Position: Sitting BP Cuff Sizes: Adult (25-34 cm) Pulse: 88 Resp: 14 Temp: 36.9 ??C (98.4 ??F) TempSrc: Temporal SpO2: 99% Weight: 82.6 kg (182 lb 1.6 oz) Height: 169 cm (5' 6.53) Physical Exam: On exam she appeared her stated age and in no acute distress. Skin:non-diaphoretic, without rash/lesions Neurological: She is alert and oriented to person, place, and time. Psychiatric:Affect is appropriate. Oriented x 3. HEENT: Normocephalic. Anicteric, normal scleral and conjunctivae. LABS AND IMAGING: Results for orders placed or performed in visit on 10/24/15 TSH Result Value Ref Range TSH 2.48 0.27 - 4.20 mcIU/mL T4, free Result Value Ref Range Free T4 1.37 0.93 - 1.70 ng/dL ASSESSMENT AND PLAN: 35 y.o. female The patient is now status post one year of Depot Lupron therapy with hormone replacement. Significant improvement in her endometriosis symptoms. We discussed surgical management and that she is at a higher risk of complications including bowel and bladder injury with hysterectomy and salpingo-oophorectomy for endometriosis compared to someone who did not have such scarring. I am hopeful that the Depot Lupron therapy may have cooled down the inflammation in her pelvis, making the surgery less difficult. We will attempt a total laparoscopic hysterectomy with bilateral salpingo-oophorectomy, but she did sign consent for possible open procedure should this be too difficult. I also did have her sign consent for a supracervical hysterectomy in the event that we cannot fully dissect the posterior col-de-sac. She states that she has always had normal Pap smears and we will send away for those from her primary provider. We must have those prior to her surgery. She will follow up for her preoperative visit. She was given one additional dose of Depot Lupron today and she will switch back to Aygestin 5 mg p.o. daily through surgery. 2:45 PM documented in this encounter Plan of Treatment Not on file documented as of this encounter Visit Diagnoses Diagnosis Endometriosis Endometriosis, site unspecified documented in this encounter Administered Medications Inactive Administered Medications - up to 3 most recent administrations Medication Order MAR Action Action Date Dose Rate Site leuprolide (LUPRON) injection 11.25 mg 11.25 mg, Intramuscular, ONCE, 1 dose, On 02/06/16 at 0915, Routine Given 02/06/2016 8:45 AM EDT 11.25 mg Right Gluteal documented in this encounter Care Teams Ada Accommodation Consultant Relationship Specialty Start Date End Date None None PCP - General 04/27/15 03/25/22 documented as of this encounter
--- OUTSIDE RECORDS SUMMARY | 2024-02-19 07:07 | XMS_ITS | Encounter Summary ---
[place] [address] Care Team Providers Care Fur Stretcher Name Role Phone Carol Randle APRN Primary Care Provider [phone] Reason for Referral * Diagnostic Test (Routine) - Closed Specialty Diagnoses / Procedures Referred By Contac t Referred To Contact Radiology Diagnoses Abdominal cramping Procedures NM Functional Biliary Scan Thony Laguerre, DAVID [address] [place] [address] [place] [address] Referral ID Status Reason Start Date Expiration Date V isits Requested Visits Authorized [id number] Closed Specialty Service Requested 05/07/2022 11/05/2023 2 2 Reason for Visit * Consultation (Routine) - Closed Specialty Diagnoses / Procedures Referred By Contac t Referred To Contact Gastroenterology Diagnoses Fatty infiltration of liver fatty liver Carol Randle APRN [address] [place] [address] [facility] [address] [place] [address] Referral ID Status Reason Start Date Expiration Date V isits Requested Visits Authorized [id number] Closed Consult, Test & Treat 03/07/2022 03/07/2023 1 1 Encounter Details Date Type Department Care Team (Late st Contact Info) Description 05/07/2022 3:00 PM EST Office [place] [id number] Thony Laguerre PA [address] [place] [address] [place] [address] NAFLD (nonalcoholic fatty liver disease) (Primary Dx); Class 1 obesity due to excess calories with body mass index (BMI) of 33.0 to 33.9 in adult, unspecified whether serious comorbidity present; Prediabetes; Abdominal cramping Social History Tobacco Use Types Packs/Day Years [...] Pulse 88 05/07/2022 3:09 PM EST Temperature - - Respiratory Rate - - Oxygen Saturation - - Inhaled Oxygen Concentration - - Weight 97.3 kg (214 lb 6.4 oz) 05/07/2022 3:09 P M EST Height 169.5 cm (5' 6.75) 05/07/2022 3:09 PM ES T Body Mass Index 33.83 05/07/2022 3:09 PM EST documented in this encounter Progress Notes * Thony Laguerre PA - 05/07/2022 3:00 PM EST Images from the original note were not included. 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 Endometriosis N80.9 ??? Surgical menopause E89.40 ??? Depression F32.A ??? Moderate asthma J45.909 ??? Hypertension I10 ??? Prediabetes R73.03 ??? Class 1 obesity in adult E66.9 ??? Anxiety F41.9 ??? Cigarette smoker F17.210 ??? History of kidney stones Z87.442 ??? Post-traumatic stress disorder, unspecified F43.10 ??? Raynaud's syndrome I73.00 ??? NAFLD (nonalcoholic fatty liver disease) K76.0 HISTORY OF PRESENT ILLNESS Milagros Maher is a 41 y.o. female referred to hepatology clinic for evaluation of fatty liver. She is accompanied by her . For the last couple months, she has been experiencing right-sided abdominal cramping which started out infrequently but she states it is getting much more constant. She describes it currently as a constant pressure and there are no particular food triggers or activities and happens at random. Shedenies nausea or vomiting but does have severe heartburn for which she currently takes [id number] mg twice daily prescribed by her financial examiner. She denies increased gas production or significant changes in bowel habits and especially denies any blood or mucus in her stools. Because of the symptoms, she underwent Donna which revealed fatty liver, which was concerning to her and she has b een doing some research. Since then, she has made several changes in her diet and lifestyle including eating more whole foods, avoiding white bread and pastas, avoiding sugary drinks and snacking on lower fat options. She states it is difficult to adhere strictly to a Mediterranean diet. Overall she has lost a few pounds. She admits that she is a coffee addict and has been drinking sugar-free creamer with her coffee. Regarding alcohol, she states this is very rare and is likely around 3 times on average she annually. She has never been a heavy alcohol user. She has a history of endometriosis status post hysterectomy. She describes this as being quite severe and her providers were very alarmed at the severity. REVIEW OF SYSTEMS General: Admits fatigue, weight loss (planned), denies poor sleep, fever, chills, night sweats Skin: Denies new rashes, easy bruising, jaundice EENT: Denies blurred vision or change in vision, hearing loss, sinus problems, dry eyes or mouth Endocrine: Denies change in tolerance to heat or cold, excessive thirst Cardiovascular: Denies chest pain, palpitations or irregular heart beat, pain in legs with walking,swelling in feet Pulmonary: Denies SOB, persistent cough, coughing up blood, asthma or wheezing Gastrointestinal: Admits heartburn, abdominal pain, denies poor appetite, trouble swallowing, diarrhea, constipation, nausea/vomitting, rectal bleeding or blood in stools Musculoskeletal: Denies pain in joints, back pain, neck or shoulder pain, muscle cramping, movementof legs at night Neurologic: Denies blackouts or loss of consciousness, headache, weakness or numbness in legs or arms, tremor, worsening memory and concentration Genitourinary: Denies frequent urination, blood in urine Psychiatric: Denies changes in mood or behavior, anxiety MEDICATIONS Current Outpatient Medications Medication Sig Dispense Refill ??? fluticasone propionate (Flonase) 50 mcg/actuation [place], Suspension SPRAY TWO SPRAYS IN EACH NOSTRIL TWICE A DAY ??? Symbicort 160-4.5 mcg/actuation HFA Aerosol Inhaler INHALE TWO PUFFS TWO TIMES A DAY RINSE, GARGLE, AND SPIT AFTER USING ??? Spiriva Respimat 2.5 mcg/actuation Mist INHALE TWO PUFFS ONCE DAILY ??? pantoprazole EC (Protonix) 40 mg Tablet, Delayed Release (E.C.) Take 40 mg by mouth 2 times daily. ??? loratadine (Claritin) 10 mg Tablet Take 10 mg by mouth daily. ??? folic acid (Folvite) 1 mg Tablet Take 1,000 mcg by mouth daily. ??? b complex vitamins Capsule Take 1 capsule by mouth daily. ??? valsartan (Diovan) 80 mg Tablet Take 40 mg by mouth nightly. ??? melatonin 10 mg Capsule Take 10 capsules by mouth nightly. ??? montelukast (Singulair) 10 mg Tablet Take 10 mg by mouth every evening. ??? cholecalciferol (Vitamin D3) 1,000 unit Tablet Take 1,000 Units by mouth daily. ??? ibuprofen (Advil) 800 mg Tablet Take 800 mg by mouth as needed. ??? metoclopramide (Reglan) 10 mg Tablet Take 10 mg by mouth as needed. ??? PARoxetine (Paxil) 40 mg Tablet Take 40 mg by mouth daily. No current facility-administered medications for this visit. ALLERGIES Allergies Allergen Reactions ??? Adhesive Tape Rash ??? 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 Marital status: , 2 children Smokin ppd Alcohol: See HPI Other drug: Occasional MJ FAMILY HISTORY Negative except as noted below Medical problem Family member Medical Problem Family member Medical Problem Family member Alcohol drug Problem Maternal side with alcoholism Kidney disease Mental illness Anemia or Blood Disease Liver disease MGF, Maternal aunt with ?liver mass Depression Diabetes PGF Liver cancer Seizure Son with epilepsy High blood pressure Stroke Lung disease Mother ?COPD Heart disease PGF Clotting problems Colon Cancer High cholesterol Immune disorders Other Cancer PGM breast PHYSICAL EXAM Vitals: 05/07/22 1509 BP: 131/87 BP Location (NB): Left arm Patient Position: Sitting BP Cuff Sizes: Small Adult (20-26 cm) Pulse: 88 Weight: 97.3 kg (214 lb 6.4 oz) Height: 5' 6.75 (169.5 cm) Body mass index is 33.83 kg/m??. Constitutional: Well appearing, appropriate, no acute distress Skin: No cyanosis, no palmar erythema, no jaundice, no spider angiomata Head: Normocephalic, sclerae anicteric CVS: Not performed Lungs: Not performed Abdomen: Increased central adiposity, minimal epigastric tenderness, nontender elsewhere, nondistended, no hepatosplenomegaly, no masses, no fluid wave, no umbilical hernia, no caput medussae Neurologic: Alert and oriented x 3, no asterixis or tremor Extremities: No edema, no clubbing, no muscle wasting, no joint swelling RESULTS Recent Results (from the past 24 hour(s)) Hemoglobin A1c Result Value Ref Range Hemoglobin A1C 5.6 4.3 - 5.6 % Est Avg Gluc 113 mg/dL Lipid Panel (Reflex Direct LDL) Result Value Ref Range Chol, Total 218 mg/dL Triglycerides 66 mg/dL HDL 74 mg/dL LDL Cholesterol 131 mg/dL Chol/HDL Ratio 2.9 ratio Lipid Interpretation See Note Ceruloplasmin Result Value Ref Range Ceruloplasmin 28.1 16.0 - 45.0 mg/dL Hepatic Function Panel Result Value Ref Range Total Protein 7.3 6.1 - 8.0 g/dL Albumin 4.6 3.2 - 5.2 g/dL AST 21 0 - 30 unit/L ALT 28 0 - 30 unit/L Alk Phos 88 35 - 105 unit/L Total Bilirubin 0.2 0.2 - 1.3 mg/dL Bili, Direct 0.1 0.0 - 0.3 mg/dL A1AT Serum Concentration Result Value Ref Range A1AT 162 90 - 200 mg/dL Hemogram Result Value Ref Range WBC 10.0 (H) 4.0 - 9.5 x10(3)/mcL RBC 4.70 4.00 - 5.21 x10(6)/mcL Hemoglobin 14.5 11.7 - 15.5 g/dL Hematocrit 42.5 35.7 - 45.8 % MCV 90.4 82.6 - 94.4 fL MCH 30.9 27.1 - 32.0 pg MCHC 34.1 31.7 - 35.0 g/dL Platelets 339 145 - 357 x10(3)/mcL RDWSD 41.7 37.0 - 46.0 fL RDWCV 12.7 11.5 - 14.1 % MPV 10.3 7.6 - 12.9 fL nRBC % Auto 0.0 % nRBC Abs Auto 0.000 0.000 - 0.000 x10(3)/mcL Differential, Automated Result Value Ref Range Neutrophils % 52.0 % Neutr Abs (ANC) 5.21 1.70 - 6.10 x10(3)/mcL Lymphocytes % 38.6 % Lymphocytes Abs 3.9 (H) 0.9 - 3.2 x10(3)/mcL Monocytes % 6.1 % Monocyte Abs 0.6 0.3 - 0.9 x10(3)/mcL Eosinophils % 2.0 % Eosinophils Abs 0.2 0.0 - 0.4 x10(3)/mcL Basophils % 0.8 % Basophils Abs 0.1 0.0 - 0.1 x10(3)/mcL Immature Gran % 0.50 % Vita Gran Abs 0.05 (H) 0.00 - 0.04 x10(3)/mcL Liver Fibrosis Score (Fib 4) was 0.46 at 05/07/2022 8:56 PM Risk of Fibrosis Low Intermediate High NAFLD Less than 1.3 1.3-2.67 Greater than 2.67 Hepatitis C Less than 1.45 1.45-3.25 Greater than 3.25 Non-DH Laboratory: 02/19/22: 10/02/21: Imaging: CT abdomen/pelvis w contrast 03/06/22 @ [facility]: Fibroscan Results Today: Median kPa: 3.7 Mean IQR: 14% (goal is <30 %) Number of valid measurements: 10 (10 required) Number of invalid measurements: 0 Predicted fibrosis stage: F0-F1 CAP (dB/m): 380 XL probe used ASSESSMENT/PLAN Milagros Maher is a 41 y.o. female with past medical history of prediabetes, hypertension, moderate persistent asthma, endometriosis, and obesity (BMI 33.83) who has been experiencing an increase in frequency of right- sided abdominal cramping without obvious precipitating triggers, found to have hepatic steatosis incidentally on CT scan in February. She also previously had a back steatosis noted on ultrasound earlier in the year. She had a minimally elevated ALT level in January with otherwise unremarkable labs (negative HCV antibody, normal iron studies, normal liver synthetic function). She has no heavy alcohol use history. Given her metabolic risks, I feel she very likely has nonalcoholic fatty liver disease (NAFLD), however I do not believe that her symptoms are related to this and much more likely a functional GI disorder. Her symptoms do not appear to be postprandial however cannot rule out biliary dyskinesia so we should consider HIDA scan to completely evaluate for this. O ther differential includes functional dyspepsia, irritable bowel syndrome, or small intestine bacterial overgrowth (SIBO). We performed a FibroScan in the office today which was reassuring suggesting no clinically significant fibrosis but high-grade steatosis consistent with her imaging. Reassured however by her otherwise unremarkable physical exam and history for significant liver dysfunction. Fatty liver disease is one of the most common causes of liver disease in the [place]. It is regarded as the liver manifestation of metabolic syndrome, associated with cardiovascular disease andpredisposition to developing diabetes. The goals of treatment are treating or managing risk factors. We discussed the importance of lifestyle interventions and making healthy food choices as the backbone of treatment for this condition. We set realistic weight loss goals; goal is to focus on loosing 10-15% of total body weight over a year by incorporating regular exercise, lifestyle modifications, and healthy food choices including portion control. In addition I would recommend avoiding high fructose corn syrup and artifical sweeteners. Diet should be low in carbohydrates and high in protein,similar to a diabetic or Mediterranean diet. Updated labs today so far are quite reassuring. LFTs are entirely normal and her A1c has normalizedat 5.6% down from 5.9% in September. Lipids are also fairly reasonable with slightly elevated LDL. Given her chronic asthma history, it is important to rule out alpha-1 antitrypsin deficiency which thus far concentration is normal and genotype is pending. Ceruloplasmin is normal ruling out Arie's disease. She previously also had normal iron studies ruling out iron overload. Her low FIB-4 score today is also consistent with high unlikelihood for advanced fibrosis. Plan: -Await result of alpha-1 antitrypsin genotype. -HIDA scan next available. -Diet and lifestyle adjustments as above. Provided information on Mediterranean diet. -I do recommend she proceed with consultation with the weight and wellness center planned for next month. She may be a candidate for weight loss pharmacotherapy, especially metformin or GLP-1 agonistgiven her prediabetes. -No medication adjustments recommended. -If HIDA scan is unremarkable, I will offer consultation with a colleague in the GI motility clinic. -She likely will not require any additional hepatology follow-up. May consider repeat Fibroscan exam in 1-2 years to ensure stability. Time spent reviewing records prior to this encounter: 15 minutes Time spent during encounter with patient including counselin minutes Time spent documenting encounter on date of service: 18 minutes Approximate total time devoted to this single encounter on date of service: 78 minutes This is exclusive of the time spent performing the Fibroscan procedure. Thony Laguerre PA-C Section of Gastroenterology [place] [address] Copy: JORDY Gaming documented in this encounter Procedure Notes * Thony Laguerre PA - 05/07/2022 3:00 PM ESTAssociated Order(s): FIBROSCAN Procedure(s): FIBROSCAN Pre-Procedure Diagnose(s): NAFLD (nonalcoholic fatty liver disease) [facility] Liver Fibrosis Assessment Report Indication: Fatty liver Performed by: DAVID Wilson Procedure: Vibration Controlled Transient Elastography (VCTE) or Fibroscan Reserve Protocol: Patient's identity, procedure and site were verified, confirmatory pause performed. Discussed procedure including risks and potential complications. Questions answered. Patient verbalizes understanding and wishes to proceed with Fibroscan assessment. Patient was placed in the supine position with right arm in maximum abduction to allow optimal exposure of right lateral abdomen. Patient was briefly assessed. Testing was performed in the mid-axillary location. 50Hz Shear Wave pulses were applied and the resulting Shear Wave and Propagation Speed was detected with a 3.5MHz ultrasonic signal, using the Fibroscan probe. Skin to liver capsule distance and liver parenchyma were accessed during the entire examination with the Fibroscan probe. Patient was instructed to breathe normally and abstain from sudden movements during the procedure. At least ten Sheer Waves were produced; individual measurements of each Shear Wave were calculated. Patient tolerated the procedure well with no complications. Fibroscan Results: Median kPa: 3.7 Mean IQR: 14% (goal is <30 %) Number of valid measurements: 10 (10 required) Number of invalid measurements: 0 Predicted fibrosis stage: F0-F1 CAP (dB/m): 380 Estimated steatosis grade: 3/3 % hepatocytes affected: > 66% XL probe used Interpretation: Based on this Fibroscan result, history, clinical examination and review of laboratory and radiological data, this patient likely has stage 0-1 liver fibrosis and grade 3 steatosis affecting greater than 66% of hepatocytes. documented in this encounter Plan of Treatment Not on file documented as of this encounter Procedures Procedure Name Priority Date/Time Associated Diagnosis Comments [id number] Routine 05/07/2022 3:00 PM EST NAFLD (nonalcoholic fatty liver disease) documented in this encounter Results * NM Functional Biliary Scan (05/24/2022 2:56 PM EST) Anatomical Region Laterality Modality Nuclear Medicine Impressions 05/24/2022 3:07 PM EST Mildly diminished gallbladder function consistent with chronic gallbladder or biliary disease. Thank you for letting us participate in the care of this patient. ??If you are a health care provider and have any questions regarding this report, please contact the number below. ??For patients who have questions please contact the health adult caregiver that requested your imaging first. ? Electronically signed by: Esvin Dodd MD, [facility] ([phone]), at 05/24/2022 3:07 PM Narrative 05/24/2022 3:07 PM EST EXAMINATION: NM FUNCTIONAL BILIARY SCAN CLINICAL HISTORY: RUQ abdominal cramping, ultrasound/CT negative, r/o biliary dyskinesia TECHNIQUE: Technetium-99m mebrofenin was administered intravenously in a dose of 5.5 mCi. An image of the abdomen was obtained in the [place]ORE[place] projection 60 minutes later. A standard oral volume of ensure was then administered and imaging continued for an additional 60 minutes. FINDINGS: Activity fills the gallbladder at 60 minutes post injection. During the sincalide infusion, there is poor contraction of the gallbladder. Quantitative analysis: The gallbladder ejection fraction is 37% (normal is > 38%). Procedure Note Esvin Dodd MD - 05/24/2022 EXAMINATION: NM FUNCTIONAL BILIARY SCAN CLINICAL HISTORY: RUQ abdominal cramping, ultrasound/CT negative, r/obiliary dyskinesia TECHNIQUE: Technetium-99m mebrofenin was administered intravenously in adose of 5.5 mCi. An image of the abdomen was obtained in the [place]ORE[place] projection 60minutes later. A standard oral volume of ensure was then administered and imagingcontinued for an additional 60 minutes. FINDINGS: Activity fills the gallbladder at 60 minutes post injection. During the sincalide infusion, there is poor contraction of the gallbladder. Quantitative analysis: The gallbladder ejection fraction is 37% (normal is > 38%). IMPRESSION Mildly diminished gallbladder function consistent with chronic gallbladderor biliary disease. Thank you for letting us participate in the care of this patient. If youare a health care provider and have any questions regarding this report,please contact the number below. For patients who have questions please contactthe health adult caregiver that requested your imaging first. Electronically signed by: Esvin Dodd MD, [facility]([phone]), at 05/24/2022 3:07 PM Kayleen Black MD [facility] ORDERABLES * Hemoglobin A1c (05/07/2022 4:28 PM EST) [facility] Hemoglobin A1c 5.6 4.3 - 5.6 % [facility] Comment: Reference Range: 4.3 - 5.6% [...] Mellitus, Diabetes Care 2013; 36: Suppl. 1, S67-38 Estimated Average Glucose 113 mg/dL [facility] Comment: eAG equivalents for HbA1c percentages: [...] into estimated average glucose values. ??Diabetes Care 2008:31(8):2383-9314. Blood 05/07/2022 4:28 PM EST 05/07/2022 4:57 PM EST Narrative Resulting Agency Comment Spec In Lab Kayleen Black MD CHEMISTRY ORDERABLES [facility] [place] [address] * Lipid Panel (Reflex Direct LDL) (05/07/2022 4:28 PM EST) Pathologist [facility] Cholesterol, Total 218 mg/dL [facility] Comment: Lower Risk: <200 mg/dL Average Risk: 200-239 mg/dL Higher Risk: >hn=829 mg/dL Triglyceride 66 mg/dL [facility] Comment: Average Risk/Lower Risk: <150 mg/dL Borderline High Risk: 150-199 mg/dL High Risk: 200-499 mg/dL Very High Risk: >ld=224 mg/dL HDL Cholesterol 74 mg/dL [facility] Comment: Males: ?? Higher Risk: <40 mg/dL Females: ?? Higher Risk: <50 mg/dL LDL Cholesterol 131 mg/dL [facility] Comment: Lowest Risk: <100 mg/dL Lower Risk: 100-129 mg/dL Borderline High Risk: 130-159 mg/dL High Risk: 160-189 mg/dL Very High Risk: >xr=970 mg/dL Cholesterol/HDL Ratio 2.9 ratio [facility] Lipid Interpretation See Note [facility] Comment: Lipid management should be guided by a patient? s ASCVD risk, goals and preferences. ACC/AHA Guidelines recommend high intensity statin if clinical ASCVD or LDL greater than or equal to 190 mg/dL. http://[employer]url.com/NQB-LKC-Mnknnigog Adults aged 40-75 with LDL 70-189 mg/dL should have their 10 year ASCVD risk estimated with the ACC/AHA ASCVD risk deliverer pharmacy http://tools.acc.org/WHINP-Ieer-Xxwxdnuel/ Statin should be discussed if risk greater [...] In Lab Kayleen Black MD CHEMISTRY ORDERABLES Performing Organization Address City/[facility]/ZIP Co de Phone Number [facility] [place] [address] * Ceruloplasmin (05/07/2022 4:28 PM EST) Ceruloplasmin 28.1 16.0 - 45.0 mg/dL [facility] Blood 05/07/2022 4:28 PM EST 05/07/2022 4:57 PM EST Narrative Resulting Agency Comment Spec In Lab Kayleen Black MD CHEMISTRY ORDERABLES Performing Organization Address [facility]/ZIP Co de Phone Number [facility] [place] [address] * Hepatic Function Panel (05/07/2022 4:28 PM EST) Protein, Total 7.3 6.1 - 8.0 g/dL [facility] Albumin 4.6 3.2 - 5.2 g/dL [facility] Aspartate Aminotransferase 21 0 - 30 unit/L [facility] Alanine Aminotransferase 28 0 - 30 unit/L [facility] Alkaline Phosphatase 88 35 - 105 unit/L [facility] Bilirubin, Total 0.2 0.2 - 1.3 mg/dL [facility] Bilirubin, Direct 0.1 0.0 - 0.3 mg/dL [facility] Blood 05/07/2022 4:28 PM EST 05/07/2022 4:57 PM EST Narrative Resulting Agency Comment Spec In Lab Kayleen Black MD CHEMISTRY ORDERABLES [facility] [place] [address] * [id number] (05/07/2022 3:00 PM EST) Narrative Thony Laguerre PA - 05/07/2022 3:00 PM EST Thony Laguerre PA ? 05/07/2022 ??9:18 PM [facility] Liver Fibrosis Assessment Report Indication: ?? Fatty liver Performed by: ??DAVID Wilson Procedure: Vibration Controlled Transient Elastography (VCTE) or Fibroscan Reserve Protocol: Patient's identity, procedure and site were verified, confirmatory pause performed. Discussed procedure including risks and potential complications. Questions answered. Patient verbalizes understanding and wishes to proceed with Fibroscan assessment. Patient was placed in the supine position with right arm in maximum abduction to allow optimal exposure of right lateral abdomen. Patient was briefly assessed. Testing was performed in the mid-axillary location. 50Hz Shear Wave pulses were applied and the resulting Shear Wave and Propagation Speed was detected with a 3.5MHz ultrasonic signal, using the Fibroscan probe. Skin to liver capsule distance and liver parenchyma were accessed during the entire examination with the Fibroscan probe. Patient was instructed to breathe normally and abstain from sudden movements during the procedure. At least ten Sheer Waves were produced; individual measurements of each Shear Wave were calculated. Patient tolerated the procedure well with no complications. Fibroscan Results: Median kPa: 3.7 Mean IQR: 14% (goal is <30 %) Number of valid measurements: 10 (10 required) Number of invalid measurements: 0 Predicted fibrosis stage: F0-F1 CAP (dB/m): 380 Estimated steatosis grade: 3/3 % hepatocytes affected: > 66% XL probe used Interpretation: Based on this Fibroscan result, history, clinical examination and review of laboratory and radiological data, this patient likely has stage 0-1 liver fibrosis and grade 3 steatosis affecting greater than 66% of hepatocytes. Kayleen Black MD PROCEDURE/MINOR SURG ICAL ORDERABLES documented in this encounter Visit Diagnoses Diagnosis NAFLD (nonalcoholic fatty liver disease)- Primary Other chronic nonalcoholic liver disease Class 1 obesity due to excess calories with body mass index (BMI) of 33.0 to 33.9 in adult, unspecified whether serious comorbidity present Prediabetes Other abnormal glucose Abdominal cramping Abdominal pain, unspecified site Abdominal cramping Abdominal pain, unspecified site documented in this encounter Care Teams Fur Stretcher Relationship Specialty Start Date End Date Carol Randle APRN PCP - General Family Medicine 03/26/22 documented as of this encounter
--- OUTSIDE RECORDS SUMMARY | 2024-02-19 07:07 | XMS_ITS | Encounter Summary ---
Author Organization [facility] [place] [address] Care Team Providers Care Slate Trimmer Name Role Phone None Primary Care Provider Unavailabl e Reason for Visit * Reason Comments Follow-up Encounter Details Date Type Department Care Team (Late st Contact Info) Description 10/24/2015 11:15 AM EDT Office Visit Obstetrics [place] [address] Ari Francis MD [facility] [place] [address] Endometriosis Social History Tobacco Use Types Packs/Day [...] Sign Reading Time Taken Comments Blood Pressure 168/98 10/24/2015 11:20 AM EDT Pulse - - Temperature - - Respiratory Rate - - Oxygen Saturation - - Inhaled Oxygen Concentration - - Weight 81.2 kg (179 lb) 10/24/2015 11:20 AM EDT Height 168.9 cm (5' 6.5) 10/24/2015 11:20 AM ED T Body Mass Index 28.46 10/24/2015 11:20 AM EDT documented in this encounter Progress Notes * Bertin Ramirez LPN - 10/24/2015 12:04 PM EDT Encounter Diagnosis Name Primary? Endometriosis Depo Lupron Siteright gluteus yelena: 11.25 mg Ordering Provider:MD Tito Date of order:10/24/15 Prior authorization obtained by Bev Quinteros. No prior auth needed. Patient tolerated injection well and will return to clinic in 3 mos for f/u visit with Dr. Francis. * Ari Francis MD - 10/24/2015 11:46 AM EDT Chief Complaint Patient presents with ??? Follow-up HPI: Milagros Maher is a 35 y.o. female with history of endometriosis and chronic pelvic pain, now s/p 6 months lupron therapy with add- back aygestin. She notes weight gain 14 lb since June, and is tired regularly with decreased energy. All other systems reviewed and negative Patient Active Problem List Diagnosis Code ??? Endometriosis N80.9 ??? Chronic pelvic pain in female R10.2, G89.29 Current outpatient prescriptions: ??? norethindrone (AYGESTIN) 5 mg Tablet, Take 1 tablet by mouth daily. Daily, Disp: 90 tablet, Rfl: 3 Wt Readings from Last 3 Encounters: 10/24/15 81.194 kg (179 lb) 07/25/15 78.926 kg (174 lb) 04/27/15 72.576 kg (160 lb) Filed Vitals: 10/24/15 1120 BP: 168/98 Height: 168.9 cm (5' 6.5) Weight: 81.194 kg (179 lb) ASSESSMENT AND PLAN: 35 y.o. female . She has had excellent pain control with the Lupron and would like to keep going with this if she can. The hot flashes are bothersome, as is the weight gain. The fatigue is concerning to her as well. We will check her thyroid level today, and change her replacement therapy to2.5mg daily of provera and see if that has fewer side effects for her. I spent 20 minutes in [id number] care with the patient, of which 20 minutes was spent in counseling and discussion. documented in this encounter Plan of Treatment Not on file documented as of this encounter Procedures Procedure Name Priority Date/Time Associated Diagnosis Comments TSH Routine 10/24/2015 12:18 PM EDT Endometriosis T4, FREE Routine 10/24/2015 12:18 PM EDT Endometriosis documented in this encounter Results * T4, free (10/24/2015 12:18 PM EDT) Free T4 1.37 0.93 - 1.70 ng/dL [facility] Blood specimen (specimen) 10/24/2015 12:18 PM EDT 10/24/2015 12:28 PM EDT Narrative Resulting Agency Comment Spec In Lab Ari Francis MD CHEMISTRY ORDERABLES Performing Organization Address City/[facility]/ZIP Co de Phone Number [facility] [place] [address] * TSH (10/24/2015 12:18 PM EDT) Thyroid Stimulating Hormone 2.48 0.27 - 4.20 mcIU/mL [facility] Blood specimen (specimen) 10/24/2015 12:18 PM EDT 10/24/2015 12:28 PM EDT Narrative Resulting Agency Comment Spec In Lab Ari Francis MD CHEMISTRY ORDERABLES Performing Organization Address City/[facility]/ZIP Co de Phone Number [facility] [place] [address] documented in this encounter Visit Diagnoses Diagnosis Endometriosis Endometriosis, site unspecified documented in this encounter Administered Medications Inactive Administered Medications - up to 3 most recent administrations Medication Order MAR Action Action Date Dose Rate Site leuprolide (LUPRON) injection 11.25 mg 11.25 mg, Intramuscular, ONCE, 1 dose, On Sat10/24/15 at 1215, Routine Given 10/24/2015 12:04 PM EDT 11.25 mg Right Gluteal documented in this encounter Care Teams Slate Trimmer Relationship Specialty Start Date End Date None None PCP - General 04/27/15 03/25/22 documented as of this encounter
--- OUTSIDE RECORDS SUMMARY | 2024-02-19 07:07 | XMS_ITS | Encounter Summary ---
Author Organization [facility] [place] [address] Care Team Providers Care Car Wash Attendant Name Role Phone None Primary Care Provider Unavailabl e Encounter Details Date Type Department Care Team (Late st Contact Info) Description 08/10/2016 Orders Only Obstetrics [place] [address] Emily Archer Social History Tobacco Use Types [...] on filedocumented in this encounter Care Teams Car Wash Attendant Relationship Specialty Start Date End Date None None PCP - General 04/27/15 03/25/22 documented as of this encounter
--- OUTSIDE RECORDS SUMMARY | 2024-02-19 07:07 | XMS_ITS | Encounter Summary ---
Author Organization [facility] Address [facility] [place] [address] Care Team Providers Care Account Resolution Expert Name Role Phone Carol Randle APRN Primary Care Provider [phone] Reason for Visit * Diagnostic Test (Routine) - Closed Specialty Diagnoses / Procedures Referred By Contac t Referred To Contact Radiology Diagnoses Abdominal cramping Procedures NM Functional Biliary Scan Thony Laguerre, DAVID [address] [place] [address] [place] [address] Referral ID Status Reason Start Date Expiration Date V isits Requested Visits Authorized [id number] Closed Specialty Service Requested 05/07/2022 11/05/2023 2 2 Encounter Details Date Type Department Care Team (Latest Contact Info) Description 05/24/2022 12:06 PM EST - 05/24/2022 11:59 PM [facility] Hospital En[place] [address] Kayleen Black MD [facility] [address] Discharge Disposition: Home Social History Tobacco Use [...] on file documented as of this encounter Medications at Time of Discharge Medication Sig Dispensed Refills Start Date End Date fluticasone propionate (Flonase) 50 mcg/actuation Moseley, Suspension SPRAY TWO SPRAYS IN EACH NOSTRIL [...] Take 1,000 mcg by mouth daily. 02/11/2022 b complex vitamins Capsule Take 1 capsule by mouth daily. melatonin 10 mg Capsule Take 10 capsules by mouth nightly. 05/02/2022 montelukast (Singulair) 10 mg Tablet Take 10 mg by mouth every evening. 01/26/2022 cholecalciferol (Vitamin D3) 1,000 unit Tablet Take 1,000 Units by mouth daily. 12/15/2021 ibuprofen (Advil) 800 mg Tablet Take 800 mg by mouth as needed. 03/10/2022 valsartan (Diovan) 80 mg Tablet Take 40 mg by mouth nightly. 05/02/2022 10/17/2022 metoclopramide (Reglan) 10 mg Tablet Take 10 mg by mouth as needed. 03/10/2022 10/19/2022 PARoxetine (Paxil) 40 mg Tablet Take 40 mg by mouth daily. 05/02/2022 10/19/2022 documented as of this encounter Plan of Treatment Not on file documented as of this encounter Goals Goal Patient Goal Type Associated Problems Recent Progress Patient-Stated? Author TRACK food intake Lifestyle No Alfreda Delgado MD Note: BAYRON such as [employer] or [employer] it, or pen and paper. If using bayron or activity monitor, don't add in extra calories for the calories you burn. work on NOT getting out of bed to eat Lifestyle No Alfreda Delgado MD have protein-containin g breakfast Lifestyle No Alfreda Delgado MD documented as of this encounter Procedures Procedure Name Priority Date/Time Associated Diagnosis Comments NM FUNCTIONAL BILIARY SCAN Routine 05/24/2022 2:56 PM EST Abdominal cramping documented in this encounter Results * NM [...] who have questions please contact the health youth care specialist that requested your imaging first. ? Electronically signed by: Esvin Dodd MD, [facility] ([phone]), at 05/24/2022 3:07 PM Narrative 05/24/2022 3:07 PM EST EXAMINATION: NM FUNCTIONAL BILIARY SCAN CLINICAL HISTORY: RUQ abdominal cramping, ultrasound/CT negative, r/o biliary dyskinesia TECHNIQUE: Technetium-99m mebrofenin was administered intravenously in a dose of 5.5 mCi. An image of the abdomen was obtained in the TANZANIAN projection 60 minutes later. A standard oral [...] of the abdomen was obtained in the TANZANIAN projection 60minutes later. A standard oral volume [...] patients who have questions please contactthe health youth care specialist that requested your imaging first. Electronically signed by: Esvin Dodd MD, [facility]([phone]), at 05/24/2022 3:07 PM Kayleen Black MD IM NM ORDERABLES documented in this encounter Visit Diagnoses Not on filedocumented in this encounter Care Teams Account Resolution Expert Relationship Specialty Start Date End Date Carol Randle APRN PCP - General Family Medicine 03/26/22 documented as of this encounter
--- OUTSIDE RECORDS SUMMARY | 2024-02-19 07:07 | XMS_ITS | Encounter Summary ---
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 motrin, oxycodone, tylenol. Alert and oriented. Cardiovascular: Vital signs wnl. Hemodynamically stable, no evidence of bleeding. -AM CBC Pulmonary: Adequate spO2 on room air. No concerns. - Encourage incentive spirometry GI: Denies nausea, vomiting. Tolerating small amounts of regular diet. -Advance diet as tolerated. -Zofran prn -Seda-colace : Banegas is in place draining clear urine. Adequate urine output. -D/C banegas when ambulatory -Monitor intake and output FEK: IVF: LR @100 ml/hr. Tolerating PO intake. -AM BMP -Wean IVF when tolerating full diet ENVIRONMENTAL EMERGENCIES PLANNER: Final pathology report pending. -Follow up in clinic 4-6 weeks postoperatively Endocrine: No issues. ID: Afebrile, received prophylactic antibiotics preop, no evidence of infection -continue to monitor vital signs. Prophylaxis: SCDs while in bed, encourage ambulation, incentive spirometry Dispo: Continue routine postoperative care Code Status: Full Code NASRIN Valenitn MD PGY-3 02/28/2016 Gynecology Service Pager: [phone] ([phone] [phone]), otherwise page [phone] * Wendy Petersen RN - 02/28/2016 5:33 PM EDT Break relief- family at bedside * Wendy Petersen RN - 02/28/2016 5:21 PM EDT 1550: Pt arrived to PACU on cardiac monitors, simple mask 6L, and banegas in place. Alarms on and appropriate for patient. 1630: DEVICE SALES CONSULTANT set up and pt taught how to use DEVICE SALES CONSULTANT and request dose. Return demonstration by pt to this RN. documented in this encounter H&P Notes * Ari Francis MD - 02/28/2016 10:45 AM EDT Inpatient PROCESS DEVELOPMENT TECHNICIAN - Admission Interval Note I have reviewed the pre-procedure H&P completed by Dr. Francis on 02/06/2016. (x) Condition unchanged since H&P originally performed. Interval Note: Milagros Maher is a 35 yo presenting for H with BSO. A copy of this document will be sent to the patient's Primary Care Physician and/or Referring Physician. Vitals: 02/28/16 0924 BP: 141/80 Pulse: 95 Temp: 37 ??C (98.6 ??F) Gen: Pleasant. Resting comfortably in bed. NAD. Neuro: Alert and oriented. Cardiac: RRR. No murmurs, rubs, or gallops. Pulm: CTAB. No wheezes, rales, or rhonci. Abd: Soft. Non-distended, Non tender. No rebound or guarding. Extremities: No lower extremity edema. Ricarda Means MD PGY1 02/28/2016 I saw and evaluated Milagros Maher. I agree with the findings and the plan of care as documented in the resident's note. ARI FRANCIS MD documented in this encounter Miscellaneous Notes * Plan of Care - Nitza Wylie RN - 03/01/2016 10:26 AM EDT Problem: General Plan of Care Goal: Plan of Care Review Outcome: Ongoing (Interventions Implemented as Appropriate) 03/01/16 1038 Plan of Care Review Plan of Care Outcome Status ongoing (interventions implemented as appropriate) Progress improving Coping/Psychosocial Response Interventions Plan of Care Reviewed with patient OUTCOME EVALUATION NOTE: OUTCOME SUMMARY: VSS. 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 Bleeding minimal at this time. Incisional Pain well controlled with po dilaudid and ibuprofen. Patient discharged home with . PLAN MOVING FORWARD: Discharge. INDIVIDUALIZED FALL PREVENTION INTERVENTIONS: Patient-specific fall risk factors per assessment: [current deficits]: None Assistance [level of assistance required for transfers and ambulation]: Independent. Supervision [direct monitoring required during toileting and ADLs]: Call ivey within reach. Patientrings appropriately. Surveillance [continuous indirect monitoring]: Nursing bedside exchange and purposeful rounding. Patient-specific fall prevention interventions for sensory deficits provided, if applicable: NA [facility] GOAL OUTCOME EVALUATION: Goal: Fall Prevention-Safe Patient Handling Outcome: Ongoing (Interventions Implemented as Appropriate) 02/29/16 0803/01/16 0804 03/01/16 0844 Safety Interventions Safety Precautions/Fall Reduction -- -- -- Musculoskeletal Interventions Activity/Level of Assistance -- -- up ad niels;independently Positioning -- -- independent Self-Care Promotion -- -- personal routines for BADL/IADL promoted;personal/BADL objects within reach Activity and Safety Assistive Device None -- -- Champion Fall Risk History of Falling -- 0 -- Secondary Diagnosis -- 0 -- Ambulatory Aids -- 0 -- Intravenous Therapy/Heparin/Saline Lock -- 0 -- Gait/Transferring -- 0 -- Mental Status -- 0 -- Score -- 0 -- OTHER Champion Fall Risk -- Low -- 03/01/16 1038 Safety Interventions Safety Precautions/Fall Reduction environmental modification;lighting adjusted for task/safety;nonskid shoes/slippers when out of bed Musculoskeletal Interventions Activity/Level of Assistance -- Positioning -- Self-Care Promotion -- Activity and Safety Assistive Device -- Champion Fall Risk History of Falling -- Secondary Diagnosis -- Ambulatory Aids -- Intravenous Therapy/Heparin/Saline Lock -- Gait/Transferring -- Mental Status -- Score -- OTHER Champion Fall Risk -- Goal: Infection Control Outcome: Ongoing (Interventions Implemented as Appropriate) 03/01/16 0803/01/16 0844 Safety Interventions Isolation Precautions standard precautions maintained -- Infection Prevention environmental surveillance;hydration promoted;nutrition promoted;promote handwashing;rest/sleep promoted -- Coping/Psychosocial Response Interventions Counseling -- calming techniques promoted;emotional support provided;verbalization of feelings encouraged;understanding of situation facilitated;reassurance provided;relaxation techniques promoted Goal: Discharge Needs Assessment Outcome: Ongoing (Interventions Implemented as Appropriate) 03/01/16 1038 Discharge Needs Assessment Concerns to be Addressed no discharge needs identified Readmission Within the Last 30 Days no previous admission in last 30 days Equipment Needed After Discharge none Current Health Anticipated Changes Related to Illness none Self-Care Equipment Currently Used at Home none Living Environment Transportation Available car;family or friend will provide Problem: Hysterectomy (Adult, Obstetrics) Goal: Signs and symptoms of listed potential problems will be absent or manageable (reference (Hysterectomy (Adult, Obstetrics)) CPG) Outcome: Ongoing (Interventions Implemented as Appropriate) 03/01/16 1038 Hysterectomy Problems Assessed (Hysterectomy) all Problems Present (Hysterectomy) acute pain * Plan of Care - Susan Moss RN - 03/01/2016 3:20 AM EDT Problem: General Plan of Care Goal: Plan of Care Review Outcome: Ongoing (Interventions Implemented as Appropriate) 03/01/16311 Plan of Care Review Plan of Care Outcome Status ongoing (interventions implemented as appropriate) Progress improving Coping/Psychosocial Response Interventions Plan of Care Reviewed with patient OUTCOME EVALUATION NOTE: OUTCOME SUMMARY: Pt is on her 2nd day post-TAHBSO, VS stable, pain controlled with use of scheduledIbuprofen & Acetaminophen as well as prn po Dilaudid. Pt has been voiding adequately since after removal of banegas catheter yesterday morning. Pt claimed to have been passing gas but no bowel movement yet at this time. Pt able to get out of bed & ambulate independently. See care plan goal rola chaves & comprehensive report for pt status. PLAN MOVING FORWARD: Continue care as directed in [facility] care plans. Prepare pt for discharge later today. INDIVIDUALIZED FALL PREVENTION: Assistance: None, pt independent Supervision: Remind pt to call for assistance when needed, call light within reach Surveillance: Purposeful rounding C[facility] OUTCOME EVALUATION: Goal: Individualization and Mutuality Outcome: Ongoing (Interventions Implemented as Appropriate) 02/29/165 02/29/16 1501 03/01/16311 Individualization Individualize the Plan of Care: -- -- Post-TAHBSO care, VS q 4 hrs, pain mgt Patient Specific Preferences cluster caring, pain control, rest/sleep -- -- Patient Specific Goals -- -- stable post-op recovery, pain control, be more mobile, get discharged later today Patient Specific Interventions -- -- Post-TAHBSO care, VS q 4 hrs, pain meds as ordered Mutuality/Individual Preferences What anxieties, fears or concerns do you have about your health or care? -- none -- What questions do you have about your health or care? -- none -- What information would help us give you more personalized care? none -- -- Goal: Fall Prevention-Safe Patient Handling Outcome: Ongoing (Interventions Implemented as Appropriate) 02/29/16 0802/29/16204303/01/16311 Safety Interventions Safety Precautions/Fall Reduction -- -- environmental modification;family at bedside;lighting adjusted for task/safety;low bed;nonskid shoes/slippers when out of bed Musculoskeletal Interventions Activity/Level of Assistance -- up ad niels;independently -- Positioning -- independent -- Muscle Strengthening -- activity/mobility promoted;personal routines for BADL/IADL promoted -- Self-Care Promotion -- -- personal routines for BADL/IADL promoted;personal/BADL objects within reach Activity and Safety Assistive Device None -- -- Champion Fall Risk History of Falling -- 0 -- Secondary Diagnosis -- 0 -- Ambulatory Aids -- 0 -- Intravenous Therapy/Heparin/Saline Lock -- 20 -- Gait/Transferring -- 0 -- Mental Status -- 0 -- Score -- 20 -- OTHER Champion Fall Risk -- Low -- Goal: Infection Control Outcome: Ongoing (Interventions Implemented as Appropriate) 02/29/162043 Safety Interventions Isolation Precautions standard precautions maintained Infection Prevention promote handwashing;rest/sleep promoted;nutrition promoted;hydration promoted;environmental surveillance Coping/Psychosocial Response Interventions Counseling emotional support provided;goal setting facilitated;understanding of situation facilitated Goal: Discharge Needs Assessment Outcome: Ongoing (Interventions Implemented as Appropriate) 03/01/16311 Discharge Needs Assessment Concerns to be Addressed no discharge needs identified Readmission Within the Last 30 Days no previous admission in last 30 days Equipment Needed After Discharge none Current Health Anticipated Changes Related to Illness none Self-Care Equipment Currently Used at Home none Living Environment Transportation Available family or friend will provide;car Problem: Hysterectomy (Adult, Obstetrics) Goal: Signs and symptoms of listed potential problems will be absent or manageable (reference (Hysterectomy (Adult, Obstetrics)) CPG) Outcome: Ongoing (Interventions Implemented as Appropriate) 03/01/16311 Hysterectomy Problems Assessed (Hysterectomy) all Problems Present (Hysterectomy) acute pain * Plan of Care - Deb Haynes RN - 02/29/2016 3:04 PM EDT Problem: General Plan of Care Goal: Plan of Care Review Outcome: Ongoing (Interventions Implemented as Appropriate) 02/29/16 1501 Plan of Care Review Plan of Care Outcome Status ongoing (interventions implemented as appropriate) Progress improving Coping/Psychosocial Response Interventions Plan of Care Reviewed with patient OUTCOME EVALUATION NOTE: OUTCOME SUMMARY: Pt had catheter removed in the morning and has been voiding adequately since then. Pain well controlled with PRN and scheduled PO and IV pain medications. Pt has been passing gas. She has been drinking an adequate amount of PO fluids and is tolerating a regular diet. Pt has ambulated around unit several times. PLAN MOVING FORWARD: DC tomorrow INDIVIDUALIZED FALL PREVENTION INTERVENTIONS: Patient-specific fall risk factors per assessment: [current deficits]: See fall assessment on doc flowsheet Assistance [level of assistance required for transfers and ambulation]: none Supervision [direct monitoring required during toileting and ADLs]: none Surveillance [continuous indirect monitoring]: Purposeful rounding Patient-specific fall prevention interventions for sensory deficits provided, if applicable: [X] No CPG GOAL OUTCOME EVALUATION: Goal: Individualization and Mutuality Outcome: Ongoing (Interventions Implemented as Appropriate) 02/29/16 0315 02/29/16 1501 Individualization Individualize the Plan of Care: Post-TAHBSO care, VS q 4 hrs, pain mgt, banegas care -- Patient Specific Preferences cluster caring, pain control, rest/sleep -- Patient Specific Goals stable post-op recovery, pain control, be more mobile today & for banegas cath to be removed -- Patient Specific Interventions Post-TAHBSO care, VS q 4 hrs, pain meds as ordered, banegas care -- Mutuality/Individual Preferences What anxieties, fears or concerns do you have about your health or care? -- none What questions do you have about your health or care? -- none What information would help us give you more personalized care? none -- Goal: Fall Prevention-Safe Patient Handling Outcome: Ongoing (Interventions Implemented as Appropriate) 02/28/16 2235 02/29/16 0800 Safety Interventions Safety Precautions/Fall Reduction -- lighting adjusted for task/safety;family at bedside;nonskid shoes/slippers when out of bed Musculoskeletal Interventions Activity/Level of Assistance -- up in room;ambulated;with 1-person assist Positioning -- independent Muscle Strengthening -- activity/mobility promoted Self-Care Promotion -- personal/BADL objects within reach Activity and Safety Assistive Device -- None Champion Fall Risk History of Falling -- 0 Secondary Diagnosis -- 0 Ambulatory Aids -- 0 Intravenous Therapy/Heparin/Saline Lock -- 20 Gait/Transferring -- 0 Mental Status -- 0 Score -- 20 OTHER Champion Fall Risk Low -- Goal: Infection Control Outcome: Ongoing (Interventions Implemented as Appropriate) 02/28/16 2235 02/29/16 0800 Safety Interventions Isolation Precautions -- standard precautions maintained Infection Prevention -- rest/sleep promoted;promote handwashing;nutrition promoted;hydration promoted;environmental surveillance Coping/Psychosocial Response Interventions Counseling emotional support provided;goal setting facilitated;understanding of situation facilitated;personal strengths integrated -- Goal: Discharge Needs Assessment Outcome: Ongoing (Interventions Implemented as Appropriate) 02/29/16 0315 Discharge Needs Assessment Concerns to be Addressed no discharge needs identified Readmission Within the Last 30 Days no previous admission in last 30 days Equipment Needed After Discharge none Current Health Anticipated Changes Related to Illness none Self-Care Equipment Currently Used at Home none Living Environment Transportation Available family or friend will provide;car Problem: Hysterectomy (Adult, Obstetrics) Goal: Signs and symptoms of listed potential problems will be absent or manageable (reference (Hysterectomy (Adult, Obstetrics)) CPG) 02/29/16 1501 Hysterectomy Problems Assessed (Hysterectomy) all Problems Present (Hysterectomy) acute pain * Plan of Care - Susan Moss RN - 02/29/2016 3:26 AM EDT Problem: General Plan of Care Goal: Plan of Care Review Outcome: Ongoing (Interventions Implemented as Appropriate) 02/29/165 Plan of Care Review Plan of Care Outcome Status ongoing (interventions implemented as appropriate) Progress progress toward functional goals as expected Coping/Psychosocial Response Interventions Plan of Care Reviewed with patient OUTCOME EVALUATION NOTE: OUTCOME SUMMARY: Pt is on her 1st day post-op (s/p TAHBSO), VS stable, pain controlled with use of DEVICE SALES CONSULTANT-Dilaudid & Ketorolac 15 mg IV q 6 hrs. Banegas catheter in place, draining adequately. Pt encouraged to use incentive spirometer & deep breathing exercises. Dressing CDI. See care plan goal summaries & comprehensive report for pt status. PLAN MOVING FORWARD: Continue care as directed in CPG care plans. Assist pt to get out of bed &ambulate. INDIVIDUALIZED FALL PREVENTION: Assistance: Will need 2 person assist when getting out of bed after surgery. Supervision: Remind pt to call for assistance when needed, call light within reach Surveillance: Purposeful rounding [facility] OUTCOME EVALUATION: Goal: Individualization and Mutuality Outcome: Ongoing (Interventions Implemented as Appropriate) 02/28/16223402/29/16314 Individualization Individualize the Plan of Care: -- Post-TAHBSO care, VS q 4 hrs, pain mgt, banegas care Patient Specific Preferences -- cluster caring, pain control, rest/sleep Patient Specific Goals -- stable post-op recovery, pain control, be more mobile today & for banegas cath to be removed Patient Specific Interventions -- Post-TAHBSO care, VS q 4 hrs, pain meds as ordered, banegas care Mutuality/Individual Preferences What anxieties, fears or concerns do you have about your health or care? -- unbearable pain, post-op complications What questions do you have about your health or care? when will banegas catheter be removed? -- What information would help us give you more personalized care? -- none Goal: Fall Prevention-Safe Patient Handling Outcome: Ongoing (Interventions Implemented as Appropriate) 02/28/1693102/28/16223402/29/16314 Safety Interventions Safety Precautions/Fall Reduction environmental modification;fall reduction program maintained;family at bedside;lighting adjusted for task/safety;low bed -- -- Musculoskeletal Interventions Activity/Level of Assistance -- bed rest -- Positioning -- -- independent Muscle Strengthening -- -- activity/mobility promoted Self-Care Promotion -- -- personal routines for BADL/IADL promoted;personal/BADL objects within reach Activity and Safety Assistive Device -- -- None Champion Fall Risk History of Falling -- 0 -- Secondary Diagnosis -- 0 -- Ambulatory Aids -- 0 -- Intravenous Therapy/Heparin/Saline Lock -- 20 -- Gait/Transferring -- 0 -- Mental Status -- 0 -- Score -- 20 -- OTHER Champion Fall Risk -- Low -- Goal: Infection Control Outcome: Ongoing (Interventions Implemented as Appropriate) 02/28/16223402/29/16314 Safety Interventions Isolation Precautions -- standard precautions maintained Infection Prevention promote handwashing;rest/sleep promoted;nutrition promoted;hydration promoted;environmental surveillance -- Coping/Psychosocial Response Interventions Counseling emotional support provided;goal setting facilitated;understanding of situation facilitated;personal strengths integrated -- Goal: Discharge Needs Assessment Outcome: Ongoing (Interventions Implemented as Appropriate) 02/29/16314 Discharge Needs Assessment Concerns to be Addressed no discharge needs identified Readmission Within the Last 30 Days no previous admission in last 30 days Equipment Needed After Discharge none Current Health Anticipated Changes Related to Illness none Self-Care Equipment Currently Used at Home none Living Environment Transportation Available family or friend will provide;car Problem: Hysterectomy (Adult, Obstetrics) Goal: Signs and symptoms of listed potential problems will be absent or manageable (reference (Hysterectomy (Adult, Obstetrics)) CPG) Outcome: Ongoing (Interventions Implemented as Appropriate) 02/29/16314 Hysterectomy Problems Assessed (Hysterectomy) all Problems Present (Hysterectomy) acute pain * Op Note - Collette Rashid - 02/28/2016 4:56 PM EDT [facility] [place] Patient Name: Milagros Maher : [id number] MR#: [id number] Case Date: 02/28/2016 Surgeon: Surgeon(s) and Role: * Ari Francis MD - Primary * Collette Rashid MD - Resident-Surgeon Chief * Ricarda Means MD - Resident-Surgeon Jacobo Preoperative diagnosis: endometriosis ?? Postoperative diagnosis: endometriosis ?? Procedure(s): Total laparoscopic hysterectomy converted to abdominal hysterectomy Bilateral salpingo-oophorectomy Cystoscopy ?? Anesthesia: General ?? Findings: stage IV endometriosis with obliteration of the posterior cul-de-sac and ovarian fossae bilaterally. Retroperitoneal fibrosis. Extensive lysis of adhesions and conversion from laparoscopy to open approach added approximately 2 hours to the surgery time. Cystoscopy: Intact bladder and bilateral ureteral jets at the end of the procedure. On inflation of rectum with air, no bubbles in peritoneal irrigation fluid. ?? Complications: none. ? Fluids: 2000mL ?? Estimated Blood Loss: 200 mL ?? Drains: Banegas catheter 250mL clear urine Specimens removed during surgery: Uterus, cervix, bilateral fallopian tubes and ovaries Surgical Closure: Primary Closure - closure of ALL tissue levels during the original surgery regardless of wires, wickes, drains, or other devices extruding through the incision Disposition: awakened from anesthesia, extubated and taken to the recovery room in a stable condition, having suffered no apparent untoward event. ?? Condition: doing well without problems (Please see the Surgical Encounter Summary for any Implant and Specimen details pertinent to this patient.) HPI/Surgical Indications: Milagros Maher is a 35 y.o. female with endometriosis. She has had one year of [place] Lupron therapy with hormone replacement with significant improvement in herendometriosis symptoms. She now desires surgical management. She was counseled on the oophorectomy at the time of hysterectomy and resultant surgical menopause. She was additionally counseled on the possibility of needing to proceed with an open approach due to scarring from endometriosis. Procedure Description: The patient was taken to the OR where general anesthesia was obtained. She was positioned in dorsallithotomy using [place] stirrups; care was taken to use neurologically neutral positioning. She received 2g Ancef and SCD's were in place and operating. She was then prepared and draped in the usual sterile manner and a banegas catheter was placed. Surgical timeout was performed and all members of the team agreed to proceed. A weighted speculum was placed in the vagina, and the cervix was grasped with a single-tooth tenaculum. The uterus sounded to 8cm and was sequentially dilated to size 21 khan. A uterine manipulator was placed. Attention was then turned to laparoscopy. Local was infiltrated infraumbilically. A vertical skin incision was made across the umbilical folds. A Veress needle was used to enter the peritoneal cavity. Intraperitoneal access was confirmed with the saline drop test. Pneumoperitoneum was established with CO2 gas to a pressure of 15 mmHg. A 5 mm trocar was then inserted into the abdomen under direct visualization. Two 5mm trocars were inserted in the bilateral lower quadrants under direct visualization with laparoscope. Trendelenburg position was obtained to facilitate pelvic exposure. She had obliteration of the posterior cul-de-sac and ovarian fossae bilaterally. The left round ligament was divided with the LigaSure and the anterior leaf of the broad ligament was to dissect the bladder off the uterus. Next the retroperitoneum was opened to attempt to identify the ureter, however visualization was not possible due to significant fibrosis. Therefore the left adnexa was carefully dissected off the side-wall and out of the cul-de-sac bluntly. The left IP was then sealed and divided with the LigaSure, and dissection was carried along the medial leaf of the broad ligament. Attention was turned to the right side, where the ureter was visualized clearly. The right IP ligament was sealed and divided with the LigaSure. In a similar fashion to the left side, the adnexawas bluntly dissected off the side wall and the medial leaf of the broad ligament was to skeletonize the uterine vessels. The right round ligament was divided and the remaining anterior leaf of the broad ligament dissected off bladder. The uterine vessels sealed and divided with the LigaSure. Dissection of the posterior leaf of the broad off of the cervix was begun, however due to concerns of involvement of the rectum, the decision was made to proceed with an open approach. Laparoscopic instruments and trochars were removed. A midline vertical incision was made in the skin from pubic symphysis to just below the umbilicus. This was carried down to the fascia with electrocautery. The fascia was nicked with the Bovie and the incision was carried superiorly and inferiorly while tenting the fascia up from underlying structures with a right angle clamp. The rectus muscles were in the midline, the peritoneum was identified, tented up and entered sharply. The Bookwalter retractor was assembled. The rectum was delineated with an EEA sizer and careful dissection of the posterior peritoneum was continued. The plane within the rectovaginal septum was developed. Sharply curved Zeplin clamps wereplaced across the vagina just below the cervix and the cervix was amputated with 90 degree angle Fran scissors. The specimen was handed off and sent to pathology. All pedicles were inspected andnoted to be hemostatic. The vaginal cuff angles were closed with 0- Vicryl in [id number] incorporating the uterosacral ligaments. The remaining vaginal cuff was closed with additional [id number] stiches. The abdomen was copiously irrigated. Air was injected into the rectum to confirm intact rectal mucosa. Slight bleeding was noted along the rectovaginal dissection plane, and addressed with pressure and Surgicel. Hemostasis was then appreciated. All laparotomy instruments were removed from the abdomen. The fascia was then closed with 0 PDS in a continuous running fashion. The subcutaneous tissue was closed with 2-0 plain gut interrupted stitches. The skin was closed with 4-0 monocryl. The trochars sites were closed with Dermabond. Cystourethroscopy was performed with a 70-degree cystoscope. The findings were normal and both ureters were patent. The bladder was again drained and the banegas catheter was replaced. The patient tolerated the procedure well and was taken back to the PACU in stable condition. The sponge, lap and needle counts were correct times two. DVT Prophylaxis: SCD's Pre-operative antibiotics: 2g Ancef Dr. Francis was present and scrubbed for the entire procedure without intervening responsibility. COLLETTE RASHID MD PGY4 02/28/2016 Infection Bundle used? N/A Associated attestation - Ari Francis MD - 03/02/2016 2:22 PM EDT Attestation: Case Date: 02/28/2016 I was present and I participated during the entire procedure (does not need to include opening and closing). ARI FRANCIS MD 03/02/2016 * Brief Op Note - Ari Francis MD - 02/28/2016 3:01 PM EDT Brief Operative Note Patient Name: Milagros Maher : [id number] MR#: [id number] Case Date: 02/28/2016 Surgeon: Surgeon(s) and Role: * Ari Francis MD - Primary * Collette Rashid MD - Resident-Surgeon Chief * Ricarda Means MD - Resident-Surgeon Jacobo Preoperative diagnosis: endometriosis Postoperative diagnosis: endometriosis Procedure(s): LAPAROSCOPY, HYSTERECTOMY, UTERUS<250GMS @HYSTERECTOMY, TOTAL ABD., W W/O BSO Anesthesia: General Findings: stage IV endometriosis with obliteration of the posterior cul-de-sac and ovarian fossae bilaterally. Retroperitoneal fibrosis. Extensive lysis of adhesions and conversion from laparoscopy to open approach added approximately 2 hours to the surgery time. Cystoscopy: Intact bladder and bilateral ureteral jets at the end of the procedure. On inflation of rectum with air, no bubbles in peritoneal irrigation fluid. Complications: none. Fluids: 2000mL Estimated Blood Loss: 200 mL Drains: Banegas catheter 250mL clear urine Disposition: awakened from anesthesia, extubated and taken to the recovery room in a stable condition, having suffered no apparent untoward event. Condition: doing well without problems Infection Bundle used? N/A Attestation: Case Date: 02/28/2016 I was present and I participated during the entire procedure (does not need to include opening and closing). (Please see the Surgical Encounter Summary for any Implant and Specimen details pertinent to this patient.) documented in this encounter Plan of Treatment Not on file documented as of this encounter Procedures Procedure Name Priority Date/Time Associated Diagnosis Comments ECG SCAN 03/02/2016 12:00 AM EDT HEMOGRAM Routine 02/29/2016 5:50 AM EDT DIFFERENTIAL, AUTOMATED Routine 02/29/2016 5:50 AM EDT CBC (WITH DIFF) Routine 02/29/2016 5:50 AM EDT BASIC METABOLIC PANEL Routine 02/29/2016 5:50 AM EDT LAPAROSCOPIC LYSIS OF ADHESIONS Routine 02/28/2016 3:34 PM EDT Endometriosis SPECIMEN TO PATHOLOGY Routine 02/28/2016 2:17 PM EDT SURGICAL PATHOLOGY REPORT Routine 02/28/2016 2:16 PM EDT HYSTERECTOMY, TOTAL ABD., W W/O BSO Routine 02/28/2016 1:52 PM EDT Endometriosis LAPAROSCOPY, LYSIS OF ADHESIONS (WRVU 15.27) 02/28/2016 11:23 AM EDT Endometriosis @HYSTERECTOMY, TOTAL ABD., W W/O BSO (WRVU 17.31) 02/28/2016 11:23 AM EDT Endometriosis POCT URINE Routine 02/28/2016 11:02 AM EDT documented in this encounter Results * SCAN DOC: ECG (03/02/2016 12:00 AM EDT) Scanning Provider MEDIA MGR SCAN EXT O RDR/RSLT * (ABNORMAL) Differential, Automated (02/29/2016 5:50 AM EDT) Neutrophil % 81.2 % [facility] Neutrophil Absolute 12.43(H) 1.50 - 6.30 x10(3)/ L [facility] Lymph % 11.3 % [facility] Lymphocytes Abs 1.7 1.0 - 3.6 x10(3)/[facility] Monocyte % 7.1 % [facility] Monocyte Abs 1.1(H) 0.2 - 1.0 x10(3)/[facility] Eos % 0.0 % [facility] Eosinophils Abs 0.0 0.0 - 0.5 x10(3)/[facility] Basophil % 0.1 % [facility] Baso Absolute 0.0 0.0 - 0.2 x10(3)/[facility] Immature Gran % 0.30 % [facility] Comment: Immature granulocytes(IG's)percentage and absolute count will include metamyelocytes, myelocytes, and promyelocytes. Blood smears from CBCs yielding IG's will be scanned manually for concordance. If this scan disagrees with the automated IG or if promyelocytes are noted, a manual differential will be performed. Immature Gran Absolute 0.05 0.00 - 0.05 x10(3)/ L [facility] Blood specimen (specimen) 02/29/2016 5:50 AM EDT 02/29/2016 6:03 AM EDT Narrative Resulting Agency Comment Spec In Lab Ari Francis MD HEMATOLOGY ORDERABLE S [facility] [place] [address] * (ABNORMAL) Hemogram (02/29/2016 5:50 AM EDT) White Blood Cell 15.3(H) 4.0 - 10.0 x10(3)/mc L [facility] Red Blood Cell 4.14 3.93 - 5.22 x10(6)/mc L [facility] Hemoglobin 12.8 11.2 - 15.7 gm/dL [facility] Hematocrit 38.6 34.0 - 45.0 % [facility] Mean Cell Volume 93.2 79.0 - 94.0 fL [facility] Mean Cell Hemoglobin 30.9 26.6 - 32.2 pg [facility] Mean Cell Hemoglobin Concentration 33.2 32.0 - 36.5 gm/dL [facility] Platelet 302 145 - 370 x10(3)/ L [facility] RDW Standard Deviation 42.8 35.0 - 46.0 fL [facility] RDW coefficient of variation 12.5 10.9 - 14.4 % [facility] Mean Platelet Volume 10.5 9.0 - 12.0 fL [facility] NRBC% auto 0.0 % [facility] NRBC Absolute 0.000 0.000 - 0.012 x10(3)/ L [facility] Blood specimen (specimen) 02/29/2016 5:50 AM EDT 02/29/2016 6:03 AM EDT Narrative Resulting Agency Comment Spec In Lab Ari Francis MD HEMATOLOGY ORDERABLE S [facility] [place] [address] * (ABNORMAL) Basic Metabolic Panel (non-fasting) (02/29/2016 5:50 AM EDT) Glucose 116 65 - 199 mg/dL [facility] Comment:Diabetes: >=200 mg/d L plus symptoms Blood Urea Nitrogen 6(L) 8 - 18 mg/dL [facility] Creatinine 0.71 0.70 - 1.20 mg/dL [facility] Comment: Please note that the pediatric reference intervals supplied above were not validated at [facility]. Results from pediatric patients should be interpreted in conjunction to the patient's age, height and muscle mass. Sodium 137 135 - 145 mmol/L [facility] Potassium 3.9 3.5 - 5.0 mmol/L [facility] Comment: Please note: ??Patients with WBC >100,000 may have falsely elevated Potassium levels. ??For accurate Potassium quantification in these patients send serum separator tube (gold top) for subsequent determinations. ??Contact the Clinical Chemistry Laboratory if there are any questions. Chloride 103 98 - 107 mmol/L [facility] Carbon Dioxide 22 22 - 31 mmol/L [facility] Anion Gap 12 5 - 15 mmol/L [facility] Calcium 8.5 8.5 - 10.5 mg/dL [facility] Est Glomerular Filtration Rate >60 >=60 [facility] Comment: This estimated GFR (eGFR) value was calculated using the MDRD equation which has been validated on patients between the ages of 18 and 70. The MDRD should not be used to assess kidney function in patients < 18 years of age or in patients with extremes of body mass, or in patients with acute kidney failure. This value should be multiplied by 1.2 for patients. For further information please copy and paste the following links into your internet browser. [email or web address] Blood specimen (specimen) 02/29/2016 5:50 AM EDT 02/29/2016 6:03 AM EDT Narrative Resulting Agency Comment Spec In Lab Ari Francis MD CHEMISTRY ORDERABLES [facility] [place] [address] * Specimen to Pathology (surgical or derm) (02/28/2016 2:17 PM EDT) AP Specimen 02/28/2016 2:17 PM EDT 02/28/2016 2:17 PM EDT Narrative [facility] - 02/28/2016 2:17 PM EDT Specimen requisition ordered. ??Separate Pathology report to follow Ari Francis MD PATHOLOGY/CYTOLOGY O DARIEL [facility] [place] [address] * Surgical Pathology Report (02/28/2016 2:16 PM EDT) Final Diagnosis [id number] ? Location: ; [facility]; The signing pathologist has (i) examined the relevant preparation(s) for the specimen(s) and (ii) rendered or confirmed the diagnosis(es). . ?Surgical Pathology DIAGNOSIS Uterus, bilateral fallopian tubes and ovaries (hysterectomy and bilateral salpingo-oophorec stan): ?? 1. Adnexal endometriosis. ?? 2. Ovarian follicular cysts. ?? 3. Bilateral benign fallopian tubes. ?? 4. Superficial adenomyosis. ?? 5. Tubo-ovarian and uterine serosal adhesions. CR-0 Electronically signed by: ??Shubham NOGUEIRA, Cain Pacheco Verified: ??03/06/2016 ?Pathologist CLINICAL INFORMATION Specimen Submitted: A - Uterus, cervix, tubes, ovaries Clinical History: Endometriosis Clinical Diagnosis: Same SPECIMEN PROCESSING A - Labeled/Fixative: Uterus, cervix, tubes, and ovaries, fresh. Qty/Size/Weight: Single, 9.1 x 6.4 x 5.2 cm, 82.0 grams (overall). Specimen Description: Intact hysterectomy and bilateral salpingo-oophorec stan ?. UTERUS AND CERVIX Serosa: Red-pink, with numerous red-brown adhesions on the posterior serosal. Endometrium: The endometrial cavity measures 3.6 x 3.0 cm. The endometrium measures 0.1 cm in thickness. Myometrium: [place] and trabecular measuring 2.2 cm in thickness. Cervix: Smooth, glistening, pink measuring 3.6 x 3.2 cm. OVARIES AND FALLOPIAN TUBES Right ovary: ??Size: 2.0 x 1.5 x 1.4 cm ??Outer Surface: Yellow-pink with multiple red-brown adhesions. ??Cut Surface: Tadeo-white ovarian stroma with multiple cysts filled ??with brown material. Right Tube: 4.1 x 0.9 x 0.7 cm. Edematous gleason-pink tubular portion of tissue with fimbriated end. Left Ovary ??Dimensions: 3.0 x 1.6 x 1.3 cm. ??Outer Surface: Yellow-pink, ragged with multiple red-brown adhesions. The ??fimbriated end of the fallopian tube is densely adhered to the surface of ??the ovary. ??Cut Surface: Tadeo-white, ovarian stroma with cysts filled with brown ??material. Left Tube: 4.7 x 0.9 x 0.8 cm. Gleason-pink tubular portion of tissue with fimbriated end. The surface is covered with numerous red-brown adhesions. . SPECIMEN PROCESSING SECTIONS/PROCESSI NG: (1) anterior cervix; (2) posterior cervix; (3) anterior endomyometrium; (4) posterior endomyometrium with serosal adhesions; (5) outside sales representative sections of right ovary; (6) outside sales representative sections of right fallopian tube; (7) outside sales representative sections of left ovary; (8) outside sales representative sections of left fallopian tube ??. (R8) ??cmn 03/06/2016 4:05 PM EDT [facility] Uterine Corpus 02/28/2016 2: 16 PM EDT 02/28/2016 2:16 PM EDT Ari Francis MD PATHOLOGY/CYTOLOGY O RDERAWOLFGANG [facility] [place] [address] * POCT urine (02/28/2016 11:02 AM EDT) POC Urine HCG Negative Negative - Negative POC Control Internal Controls Acceptable 02/28/2016 11:0 2 AM EDT Ari Francis MD POINT OF CARE TEST O DARIEL documented in this encounter Visit Diagnoses Diagnosis Endometriosis- Primary Endometriosis, site unspecified documented in this encounter Administered Medications Inactive Administered Medications - up to 3 most recent administrations Medication Order MAR Action Action Date Dose Rate Site acetaminophen (TYLENOL) tablet 1,000 mg 1,000 mg, Oral, ONCE, 1 dose, On Sat02/28/16 at 0945, Maximum dose of acetaminophen is 4000 mg from all sources in 24 hours., Day of Surgery (Day of Procedure), Routine Given 02/28/2016 9:45 AM EDT 1,000 mg acetaminophen (TYLENOL) tablet 650 mg 650 mg, Oral, EVERY 6 HOURS, First dose on Sat02/28/16 at 1700, Until Discontinued, Use acetaminophen first, Routine Given 03/01/2016 5:06 AM EDT 650 mg Given 02/29/2016 11:12 PM EDT 650 mg Given 02/29/2016 5:10 PM EDT 650 mg gabapentin (NEURONTIN) capsule 600 mg 600 mg, Oral, ONCE, 1 dose, On Sat02/28/16 at 0945, Day of Surgery (Day of Procedure), Routine Given 02/28/2016 9:45 AM EDT 600 mg HYDROmorphone (DILAUDID) 1 mg/mL DEVICE SALES CONSULTANT 50 mL Intravenous, DEVICE SALES CONSULTANT ONLY, Starting on Sat02/28/16 at 1700, Until Sat02/29/16 at 0614, Recovery (Recovery-Hospital Unit) New Syringe/Cartridge 02/28/2016 4:45 PM EDT 50 mg HYDROmorphone (DILAUDID) syringe 0.2-0.4 mg 0.2-0.4 mg, Intravenous, EVERY 5 MIN PRN, Pain, Starting on Sat02/28/16 at 1546, Until Sat02/28/16 at 1811, For moderate pain (4-6) give: 0.2 mg every 5 minute prn For severe pain (7-10) give: 0.4 mg every 5 minutes prn Maximum dose: 4 mg per hour Hold for respiratory rate less than 10 per minute., PACU Recovery Given 02/28/2016 4:45 PM EDT 0.4 mg HYDROmorphone (DILAUDID) tablet 2 mg 2 mg, Oral, EVERY 4 HOURS PRN, Starting on Sat02/29/16 at 0613, Until Sat03/01/16 at 1227, Pain, Routine Given 03/01/2016 9:38 AM EDT 2 mg Given 02/29/2016 5:11 PM EDT 2 mg Given 02/29/2016 12:16 PM EDT 2 mg ibuprofen (ADVIL;MOTRIN) tablet 600 mg 600 mg, Oral, EVERY 6 HOURS, First dose (after last reorder) on Margie 03/01/16 at 0200, Until Discontinued, - Begin after ketorolac discontinued. , Routine Given 03/01/2016 8:44 AM EDT 600 mg Given 03/01/2016 2:28 AM EDT 600 mg ketorolac (TORADOL) injection 15 mg 15 mg, Intravenous, EVERY 6 HOURS, 5 doses, First dose on Sat02/28/16 at 1700, Last dose on Sat02/29/16 at 1700, Routine Given 02/28/2016 8:33 PM EDT 15 mg ketorolac (TORADOL) injection 15 mg 15 mg, Intravenous, EVERY 6 HOURS, 4 doses, First dose (after last reorder) on Sat02/29/16 at 0200, Last dose on Sat02/29/16 at 2000, Routine Given 02/29/2016 8:35 PM EDT 15 mg Given 02/29/2016 2:35 PM EDT 15 mg Given 02/29/2016 8:22 AM EDT 15 mg lactated ringers infusion 1,000 mL 1,000 mL, at 100 mL/hr, Intravenous, CONTINUOUS, Starting on Sat02/28/16 at 1615, Until Sat02/28/16 at 1811, PACU Recovery New Bag 02/28/2016 4:04 PM EDT 1,000 mLs 100 mL/hr lactated ringers infusion 1,000 mL 1,000 mL, at 100 mL/hr, Intravenous, CONTINUOUS, Starting on Sat02/28/16 at 0945, Until Sat02/28/16 at 1811, Day of Surgery (Day of Procedure) New Bag 02/28/2016 12:22 PM EDT New Bag 02/28/2016 9:45 AM EDT 1,000 mLs 100 mL/hr lactated ringers infusion 1,000 mL 1,000 mL, at 100 mL/hr, Intravenous, CONTINUOUS, Starting on Sat02/28/16 at 1700, Until 02/29/16 at 0614 New Bag 02/29/2016 2:12 AM EDT 1,000 mLs 100 mL /hr lidocaine (XYLOCAINE) 10 mg/mL (1 %) injection 3 mg 3 mg (0.3 mL), Subcutaneous, ONCE PRN, 1 dose, Starting on Sat02/28/16 at 0924, Until Sat02/28/16 at 0942, for discomfort with PIV insertion, Day of Surgery (Day of Procedure), Routine Given 02/28/2016 9:42 AM EDT 3 mg phenazopyridine (PYRIDIUM) tablet 200 mg 200 mg, Oral, ONCE, On Sat02/28/16 at 0945, 1 dose, Day of Surgery (Day of Procedure) Given 02/28/2016 9:45 AM EDT 200 mg polyethylene glycol (MIRALAX) packet 17 g 17 g, Oral, DAILY PRN, Starting on Sat02/28/16 at 1837, Until Margie 03/01/16 at 1227, Constipation, Administer if needed per patient's routine or if no bowel movement within 48 hours to achieve: 1) One bowel movement at least every 48 hours, AND 2) Without straining. If multiple bowel medications ordered, consider polyethylene glycol(MIRALAX) first., Routine Given 03/01/2016 7:59 AM EDT 17 g senna-docusate (PERICOLACE) 8.6-50 mg per tablet 2 tablet 2 tablet, Oral, 2 TIMES DAILY, First dose on Sat02/28/16 at 2100, Until Discontinued, Routine Given 03/01/2016 8:00 AM EDT 2 tablets Given 02/29/2016 8:38 PM EDT 2 tablets Given 02/29/2016 8:22 AM EDT 2 tablets sodium chloride 0.9 % flush 5 mL 5 mL, Intravenous, 2 TIMES DAILY, First dose on Sat02/28/16 at 2100, Until Discontinued, Routine Given 02/29/2016 8:36 PM EDT 5 mLs Given 02/28/2016 8:34 PM EDT 5 mLs documented in this encounter Active and Recently Administered Medications Times are shown in EDT. Scheduled Medication Order 02/28/2016 02/29/2016 03/01/2016 acetaminophen (TYLENOL) tablet 1,000 mg (COMPLETED) 1,000 mg, Oral, ONCE, 1 dose, On Sat02/28/16 at 0945, Maximum dose of acetaminophen is 4000 mg from all sources in 24 hours., Day of Surgery (Day of Procedure), Routine 944 (Given - Provider: Elaine Teague) acetaminophen (TYLENOL) tablet 650 mg 650 mg, Oral, EVERY 6 HOURS, First dose on Sat02/28/16 at 1700, Until Discontinued, Use acetaminophen first, Routine 1720 (Given - Provider: Wendy Petersen, CHRISSIE)2242 (Given - Provider: Susan Moss, CHRISSIE) 0458 (Given - Provider: Susan Moss, CHRISSIE)1109 (Given - Provider: Candice Carson RN)1710 (Given - Provider: Bianca Marrero RN)2312 (Given - Provider: Susan Moss, CHRISSIE) 0506 (Given - Provider: Susan Moss RN) ceFAZolin (ANCEF) 2g in dextrose 5% 50 mL (COMPLETED) 2 g, Intravenous, ONCE, 1 dose, On Sat02/28/16 at 0945, Administer over 30 Minutes, Redose every 3 hours if CrCl is greater than 20. Redose every 8 hours if CrCl is less than 20., Day of Surgery (Day of Procedure), Indication for (Active or Suspected): Prophylaxis 1143 (Given - Provider: Enrique Marley) gabapentin (NEURONTIN) capsule 600 mg (COMPLETED) 600 mg, Oral, ONCE, 1 dose, On Sat02/28/16 at 0945, Day of Surgery (Day of Procedure), Routine 45 (Given - Provider: Elaine Teague) ibuprofen (ADVIL;MOTRIN) tablet 600 mg(Linked Group 1) 600 mg, Oral, EVERY 6 HOURS, First dose (after last reorder) on Sat03/01/16 at 0200, Until Discontinued, - Begin after ketorolac discontinued. , Routine 0228 (Given - Provider: Susan Moss RN)0844 (Given - Provider: Nitza Wylie RN) ketorolac (TORADOL) injection 15 mg (CANCELED)(Linked Group 2) 15 mg, Intravenous, EVERY 6 HOURS, 5 doses, First dose on Sat02/28/16 at 1700, Last dose on Sat02/29/16 at 1700, Routine 2032 (Given - Provider: Susan Moss RN - Comment: pt received Toradol 15mg in OR at 1438.)2300 (Due) ketorolac (TORADOL) injection 15 mg (COMPLETED)(Linked Group 1) 15 mg, Intravenous, EVERY 6 HOURS, 4 doses, First dose (after last reorder) on Sat02/29/16 at 0200, Last dose on Sat02/29/16 at 2000, Routine 0235 (Given - Provider: Susan Moss RN)08 (Given - Provider: Deb Haynes RN)143 (Given - Provider: Deb Haynes RN)2034 (Given - Provider: Susan Moss RN) phenazopyridine (PYRIDIUM) tablet 200 mg (COMPLETED) 200 mg, Oral, ONCE, On Sat02/28/16 at 0945, 1 dose, Day of Surgery (Day of Procedure) 0945 (Given - Provider: Elaine Mayfield-Hazard) senna-docusate (PERICOLACE) 8.6-50 mg per tablet 2 tablet 2 tablet, Oral, 2 TIMES DAILY, First dose on Sat02/28/16 at 2100, Until Discontinued, Routine 2041 (Given - Provider: Susan Moss RN) 0822 (Given - Provider: Deb Haynes, CHRISSIE)2037 (Given - Provider: Susan Moss RN) 0800 (Given - Provider: Nitza Wylie RN) sodium chloride 0.9 % flush 5 mL 5 mL, Intravenous, 2 TIMES DAILY, First dose on Sat02/28/16 at 2100, Until Discontinued, Routine 2033 (Given - Provider: Susan Moss RN) 0900 (Due)2035 (Given - Provider: Susan Moss RN) 09 (Not Given - Provider: Nitza Wylie RN - Reason: See comment - Comment: NO IV access) Continuous Medication Order 02/28/2016 02/29/2016 03/01/2016 HYDROmorphone (DILAUDID) 1 mg/mL DEVICE SALES CONSULTANT 50 mL (CANCELED) Intravenous, DEVICE SALES CONSULTANT ONLY, Starting on Sat02/28/16 at 1700, Until Sat02/29/16 at 0614, Recovery (Recovery-Hospital Unit) 1645 (New Syringe/Cartridge - Provider: Wendy Petersen RN) 0640 (Stopped - Provider: Susan Moss, RN) lactated ringers infusion 1,000 mL (CANCELED) 1,000 mL, at 100 mL/hr, Intravenous, CONTINUOUS, Starting on Sat02/28/16 at 1615, Until Sat02/28/16 at 1811, PACU Recovery 1604 (New Bag - Provider: Wendy Petersen RN) lactated ringers infusion 1,000 mL (CANCELED) 1,000 mL, at 100 mL/hr, Intravenous, CONTINUOUS, Starting on Sat02/28/16 at 0945, Until Sat02/28/16 at 1811, Day of Surgery (Day of Procedure) 0945 (New Bag - Provider: Elaine Teague)1222 (New Bag - Provider: Anthony Jo MD)1312 (Anesthesia Volume Adjustment - Provider: Anthony Jo MD)1418 (Anesthesia Volume Adjustment - Provider: Anthony Jo MD)1502 (Anesthesia Volume Adjustment - Provider: Anthony Jo MD) lactated ringers infusion 1,000 mL (CANCELED) 1,000 mL, at 100 mL/hr, Intravenous, CONTINUOUS, Starting on Sat02/28/16 at 1700, Until Sat02/29/16 at 0614 1700 (Not Given - Provider: Wendy Petersen RN - Reason: See comment - Comment: Product already scanned and started under another order for LR @ 100ml/hr.) 0212 (New Bag - Provider: Rajani Wen RN)0640 (Stopped - Provider: Susan Moss, RN) PRN Medication Order 02/28/2016 02/29/2016 03/01/2016 BUpivacaine (PF) (MARCAINE) 0.25 % (2.5 mg/mL) injection (CANCELED) ONCE PRN, Starting on 02/28/16 at 1215, Until Margie 03/01/16 at 1227, Intra-Operative (Intra-Procedure), Routine 1215 (Given - Provider: Ari Francis MD) HYDROmorphone (DILAUDID) syringe 0.2-0.4 mg (CANCELED) 0.2-0.4 mg, Intravenous, EVERY 5 MIN PRN, Pain, Starting on Sat02/28/16 at 1546, Until Sat02/28/16 at 1811, For moderate pain (4-6) give: 0.2 mg every 5 minute prn For severe pain (7-10) give: 0.4 mg every 5 minutes prn Maximum dose: 4 mg per hour Hold for respiratory rate less than 10 per minute., PACU Recovery 1645 (Given - Provider: Wendy Petersen, CHRISSIE) HYDROmorphone (DILAUDID) tablet 2 mg 2 mg, Oral, EVERY 4 HOURS PRN, Starting on Sat02/29/16 at 0613, Until Sat03/01/16 at 1227, Pain, Routine 0822 (Given - Provider: Deb Haynes, CHIRSSIE)1216 (Given - Provider: Deb Haynes, CHRISSIE)1711 (Given - Provider: Bianca Marrero, RN) 0938 (Given - Provider: Nitza Wylie, CHRISSIE) lidocaine (XYLOCAINE) 10 mg/mL (1 %) injection 3 mg (COMPLETED) 3 mg (0.3 mL), Subcutaneous, ONCE PRN, 1 dose, Starting on Sat02/28/16 at 0924, Until Sat02/28/16 at 0942, for discomfort with PIV insertion, Day of Surgery (Day of Procedure), Routine 0942 (Given - Provider: Elaine Mayfield-Hazard) lidocaine (XYLOCAINE) 10 mg/mL (1 %) injection 3 mg 3 mg (0.3 mL), Subcutaneous, ONCE PRN, 1 dose, Starting on Sat02/28/16 at 1837, Until Margie 03/01/16 at 1227, for discomfort with PIV insertion, Routine polyethylene glycol (MIRALAX) packet 17 g 17 g, Oral, DAILY PRN, Starting on Sat02/28/16 at 1837, Until Margie 03/01/16 at 1227, Constipation, Administer if needed per patient's routine or if no bowel movement within 48 hours to achieve: 1) One bowel movement at least every 48 hours, AND 2) Without straining. If multiple bowel medications ordered, consider polyethylene glycol(MIRALAX) first., Routine 0759 (Given - Provider: Nitza Wylie RN) sodium chloride 0.9 % flush 5-20 mL 5-20 mL, Intravenous, EVERY 1 MIN PRN, Starting on Sat02/28/16 at 1837, Until Sat03/01/16 at 1227, flush, Flush pertains to all indwelling lines. Flush per protocol found in the job aid using the link provided on this medication record., Routine Linked Groups Order Group 1: ketorolac (TORADOL) injection 15 mg (COMPLETED)Jump to med 15 mg, Intravenous, EVERY 6 HOURS, 4 doses, First dose (after last reorder) on Sat02/29/16 at 0200, Last dose on Sat02/29/16 at 2000, Routine Followed by ibuprofen (ADVIL;MOTRIN) tablet 600 mgJump to med 600 mg, Oral, EVERY 6 HOURS, First dose (after last reorder) on Sat03/01/16 at 0200, Until Discontinued, - Begin after ketorolac discontinued. , Routine Group 2: ketorolac (TORADOL) injection 15 mg (CANCELED)Jump to med 15 mg, Intravenous, EVERY 6 HOURS, 5 doses, First dose on Sat02/28/16 at 1700, Last dose on Sat02/29/16 at 1700, Routine Followed by ibuprofen (ADVIL;MOTRIN) tablet 600 mg (CANCELED) 600 mg, Oral, EVERY 6 HOURS, First dose on Sat02/29/16 at 2300, Until Discontinued, - Begin after ketorolac discontinued. 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
--- OUTSIDE RECORDS SUMMARY | 2024-02-19 07:07 | XMS_ITS | Encounter Summary ---
Author Organization [facility] Address [facility] [place] [address] Care Team Providers Care Assurance Assistant Name Role Phone Carol Randle APRN Primary Care Provider [phone] Encounter Details Date Type Department Care Team (Latest Contact Info) Description 07/12/2022 2:30 PM EST TH Visit (TeleHealth) [place] [phone] Alfreda Delgado MD [facility] [address] [place] [address] Class 1 obesity with serious comorbidity and [...] * Patient Instructions* Alfreda Delgado MD - 07/12/2022 2:30 PM EST Good to see you yesterday via video visit. I am glad that you are recovering well from your gallbladder surgery. I asked the director of medical education to fax the orders for fasting labs to [facility], please do when you are recovered. Below are the goals set so far and info on the classes which we offer. I did not ask about smoking today; I hope that you have quit since your surgery but if not please continue to work with your PCP on this. Goals Exercise 3x per week (10-15 min per time) Try qigong and t'ai chi. have protein-containing breakfast Nutrition - 06/12/22 Nutrition Goals: Establish exercise routine - continue walking, consider increasing to moderate intensity walking; add resistance exercise to routine using resistance bands Balanced plate - 1/2 plate vegetables, 1/4 plate protein, 1/4 plate high quality carbohydrate; Continuing to choose protein at every eating event; increasing vegetable intake; Handout - nutrition websites self-awareness and goal setting Draft a Wellness Vision. TRACK food intake BAYRON such as OG-Vegas or Lose it, or pen and paper. If using bayron or activity monitor, don't add in extra calories for the calories you burn. work on NOT getting out of bed to eat Healthy Lifestyles Program (HLP) - NEW (and improved) format These group visits offer comprehensive education on living your healthiest life with discussions based on nutrition, activity and lifestyle. Each Smarter block runs for 6 weeks, 1 hour on Zoom per week EatSmarter - focuses on healthy nutritional choices, presented by the dietary team MoveSmarter - focuses on increasing activity in your life, presented by one of our health coaches LiveSmarter - focuses on making behavior changes through mindful living, presented by one of our health coaches You can choose to participate in one block or all three, but we ask that you attend only one block at a time. If you are interested in scheduling yourself for one of the 6 week Healthy Lifestyle blocks, pleasecall ([phone]) or stop by our card setter's desk to choose day and times. documented in this encounter Progress Notes * Alfreda Delgado MD - 07/12/2022 2:30 PM EST [facility] Healthy Living Clinic Visit ( ) IN CLINIC (xx ) video visit ( ) phone visit Patient Name: Milagros Maher Date of : 1980 Age: 42 y.o. Carol Randle APRN is PCP. Thank you for referring Milagros Maher to the [facility] for consultation regarding obesity. CHIEF COMPLAINT: Follow-up for Obesity No flowsheet data found. INTERVAL HISTORY / PROGRESS TOWARD GOALS: [x] I reviewed past / interim records including notes and labs. This is the first folllow up [facility] visit for this 42 y.o. y.o. patient who I saw in Weight and Wellness clinic for the first time on 05/23/2022 (video visit). From first visit: WHO Class 1 obesity BMI 33.7 WEIGHT 214 lbs. Medical problems including: ELEVATED FASTING GLUCOSE,asthma, anxiety, NAFLD, SMOKER, s/p total hyst , PTSD. EDDY, treated. Food insecurity. Now s/p [...] 20 year old. Her Goal: 160-165 lbs. ?? Last dietitian visit: (reviewed): [place] . Last visit with health pitching coach Bertin Bobo: Referrals done other than dietitian and health pitching coach: ( ) [facility] emotional eating group [...] gastroparesis ( ) other: TODAY PATIENT REPORTS: had Gallbladder removed on Saturday (lap). Now getting outside a little to visit with the animals. Healing. No longer needing pain med during the day. Surgery done at [facility] in [facility]. Dietitian tameka was helpful. She said survery and recovery most important right now. Next appt end of Jul. Health pitching coach visit: She rec looking into mustapha chi , etc. Milagros Says there are some classes around her area she will look into, would prefer in-person to on-line. Nutrition/healthy eating: since surgery no restrictions on diet. Has had no issues with what she iseating. In terms of healthy eating: since surgery 50/50. Had cake with pb frosting after surgery, indulgedin some stuff. Last night for dinner had pasta with red sauce, veggies, local sausage and hamburger in the sauce. We had set goal of protein- containing bkfst: she says at least 5 days per week eating bkfst, grk yog with fruit Or pb. Makes smoothies with cabot whey protein. Would have a smoothie when not going to be able to eat lunch would have smoothie for lunch. Yesterday for [facility] small portion mac and cheese. 1/2 cup. Smoked sausage and pickles. Re: oob to eat--- doing much better. Still wakes up but will have water instead of anything else. Tracking:(set as goal at first visit). has an bayron on phone ( MFP). Has not used it since befoe surgery. Wt at home: Does not know, has not had wt since before surgery. She says surgeon felt Having gb out would help with wt issues and that early hyst with ovaries removed contributed (no HRT because smoker). Goals ??? Exercise 3x per week (10-15 [...] ??? TRACK food intake BAYRON such as Buildingeyepal or Lose it, or pen and paper. [...] Fibrosis Score (Fib 4) was 0.47 at 07/12/2022 5:50 AM Risk of Fibrosis Low Intermediate High [...] ] with improvement [ ] without change [x ] Weight unknown since first visit. Today is recovering from recent katrin . Discussed diet, activity. Will re-send info on our [facility] classes and the goals set so far.. Asked MA to fax orders for fasting tsh, bmp, vit D to [facility] in [facility]. Asked her to get a scale so we can assess progress; if can't do this perhaps could get weights at PCP office. NOT anxious to addanti-obesity meds at this time. ?? RTC me end of August zoom visit.. SMOKING: Not discussed today. At last visit working with PCP on quitting. NAFLD: Sees Patrick Laguerre. ?? Healthy Lifestyle recommendations to promote healthy weight EDDY: ?? Continue CPAP as prescribed Vitamin D deficiency: Labs/Tests ordered today: See above I spent 33 minutes in care of this patient today [...] Alfreda Delgado MD Note: BAYRON such as Buildingeyepal or Lose it, or pen and paper. [...] Primary documented in this encounter Care Teams Assurance Assistant Relationship Specialty Start Date End Date Carol Randle APRN PCP - General Family Medicine 03/26/22 documented as of this encounter
--- OUTSIDE RECORDS SUMMARY | 2024-02-19 07:07 | XMS_ITS | Encounter Summary ---
Author Organization [facility] [place] [address] Care Team Providers Care Fat Purification Worker Name Role Phone Carol Randle APRN Primary Care Provider [phone] Reason for Referral * Consultation (Routine) - Closed Specialty Diagnoses / Procedures Referred By Contsagar t Referred To Contact Weight and Wellness Diagnoses Prediabetes Fatty infiltration of liver Carol Randle APRN [address] [place] [address] [facility] [address] [place] [address] Referral ID Status Reason Start Date Expiration Date V isits Requested Visits Authorized [id number] Closed Consult, Test & Treat PCP Updated and/or Approved 03/26/2022 03/26/2023 1 1 Encounter Details Date Type Department Care Team (Latest Contact Info) Description 03/26/2022 Transcribe Orders eDH Incoming Referrals [phone] Carol Randle APRN [address] [place], [place] [phone] Prediabetes; Fatty infiltration of liver Social History Tobacco Use Types Packs/Day Years [...] Associated Diagnoses Orde r Schedule Referral to [facility] Outpatient Referral Routine Prediabetes Fatty infiltration of liver Ordered: 03/26/2022 documented as of this encounter Visit Diagnoses Diagnosis Prediabetes Other abnormal glucose Fatty infiltration of liver Other chronic nonalcoholic liver disease documented in this encounter Care Teams Fat Purification Worker Relationship Specialty Start Date End Date Carol Randle APRN PCP - General Family Medicine 03/26/22 documented as of this encounter
--- OUTSIDE RECORDS SUMMARY | 2024-02-19 07:07 | XMS_ITS | Encounter Summary ---
Author Organization [facility] [place] [address] Care Team Providers Care Rodeo Rider Name Role Phone None Primary Care Provider Unavailabl e Encounter Details Date Type Department Care Team (Late st Contact Info) Description 09/26/2021 Ancillary Procedure [place] [address] Carol Randle APRN [address] [place] [address] Social History Tobacco Use Types Packs/Day Years [...] Diagnosis Comments FILM LIBRARY STORAGE ONLY CT CHEST Routine 09/26/2021 12:00 AM EDT documented in this encounter Results * Film Library- Storage Only CT Chest (09/26/2021 12:00 AM EDT) Narrative [facility] - 03/07/2022 3:15 PM EDT This exam is auto-finalizing. It's purpose is for storage only. Carol Randle APRN IMG FILM LIBRARY ORD ERABLES [place], [place] documented in this encounter Visit Diagnoses Not on filedocumented in this encounter Care Teams Rodeo Rider Relationship Specialty Start Date End Date None None PCP - General 04/27/15 03/25/22 documented as of this encounter
--- OUTSIDE RECORDS SUMMARY | 2024-02-19 07:07 | XMS_ITS | Encounter Summary ---
Author Organization [facility] [place] [address] Care Team Providers Care Put In Beat Adjuster Name Role Phone None Primary Care Provider Unavailabl e Reason for Visit * Reason Onset Date Comments Post Procedure Call 03/02/2016 02/28/2016 Encounter Details Date Type Department Care Team (Late st Contact Info) Description 03/02/2016 Telephone Obstetrics [place] [phone] Emily Archer Post Procedure Call (02/28/2016) Social History Tobacco Use Types Packs/Day Years [...] Miscellaneous Notes * Telephone Encounter - Emily Archer RN - 03/02/2016 12:36 PM EDT Surgery Date: 02/28/2016 Caller: Emily Archer RN Reason for call: Post-op Surgery phone call. Procedure(s): LAPAROSCOPY, HYSTERECTOMY, UTERUS<250GMS @HYSTERECTOMY, TOTAL ABD., W W/O BSO Speaking with: patient Condition of patient: I am ok, the ride home yesterday kicked my butt Pain control: reports pain as 2/10, using tylenol and ibuprofen with good effect, using dilaudid atnight Dressings to incision sites: abdominal incision with steri-strips in place Tolerating solids/liquids: yes Had a BM or passing flatus: yes Voiding: yes Vaginal Bleeding: reports minimal spotting Plan: Reviewed telephone contacts. Questions/concerns to call clinic at [phone]. documented in this encounter Plan of Treatment Not on file documented as of this encounter Visit Diagnoses Not on filedocumented in this encounter Care Teams Put In Beat Adjuster Relationship Specialty Start Date End Date None None PCP - General 04/27/15 03/25/22 documented as of this encounter
--- OUTSIDE RECORDS SUMMARY | 2024-02-19 07:07 | XMS_ITS | Encounter Summary ---
Author Organization [facility] [place] [address] Care Team Providers Care Filament Tester Name Role Phone Carol Randle Annette CEO Primary Care Provider [phone] Encounter Details Date Type Department Care Team (Latest Contact Info) Description 05/07/2022 4:25 PM EST Laboratory Appointment Lab [address] [place] [phone] NAFLD (nonalcoholic fatty liver disease) Social History Tobacco Use Types Packs/Day Years [...] Procedure Name Priority Date/Time Associated Diagnosis Comments A1AT GENOTYPE Routine 05/07/2022 4:28 PM EST NAFLD (nonalcoholic fatty liver disease) HC A1AT (ALPHA-1 ANTITRYPSIN) Routine 05/07/2022 4:28 PM EST NAFLD (nonalcoholic fatty liver disease) HEMOGRAM Routine 05/07/2022 4:28 PM EST NAFLD (nonalcoholic fatty liver disease) DIFFERENTIAL, AUTOMATED Routine 05/07/2022 4:28 PM EST NAFLD (nonalcoholic fatty liver disease) [id number] Routine 05/07/2022 4 :28 PM EST NAFLD (nonalcoholic fatty liver disease) HC CERULOPLASMIN Routine 05/07/2022 4:28 PM EST NAFLD (nonalcoholic fatty liver disease) HC CBC,PLT & AUTO DIFF Routine 4:28 PM EST NAFLD (nonalcoholic fatty liver disease) HC VENIPUNCTURE Routine 05/07/2022 4:28 PM EST NAFLD (nonalcoholic fatty liver disease) HEPATIC FUNCTION PANEL Routine 4:28 PM EST NAFLD (nonalcoholic fatty liver disease) LIPID PANEL (REFLEX DIRECT LDL) Routine 05/07/2022 4:28 PM EST NAFLD (nonalcoholic fatty liver disease) documented in this encounter Results * (ABNORMAL) Differential, Automated (05/07/2022 4:28 PM EST) Neutrophil % 52.0 % [facility] Neutrophil Absolute 5.21 1.70 - 6.10 x10(3)/mc L [facility] Lymph % 38.6 % [facility] Lymphocytes Abs 3.9(H) 0.9 - 3.2 x10(3)/mc L [facility] Monocyte % 6.1 % [facility] Monocyte Abs 0.6 0.3 - 0.9 x10(3)/mc L [facility] Eos % 2.0 % [facility] Eosinophils Abs 0.2 0.0 - 0.4 x10(3)/mc L [facility] Basophil % 0.8 % [facility] Baso Absolute 0.1 0.0 - 0.1 x10(3)/mc L [facility] Immature Gran % 0.50 % [facility] Comment: Immature granulocytes(IG's)percentage and absolute count will include metamyelocytes, myelocytes, and promyelocytes. Blood smears from CBCs yielding IG's will be scanned manually for concordance. If this scan disagrees with the automated IG or if promyelocytes are noted, a manual differential will be performed. Immature Gran Absolute 0.05(H) 0.00 - 0.04 x10(3)/mc L [facility] Blood 05/07/2022 4:28 PM EST 05/07/2022 4:57 PM EST Narrative Resulting Agency Comment Spec In Lab Thony HERNANDEZ HEMATOLOGY ORDERABLE S [facility] [place] [address] * (ABNORMAL) Hemogram (05/07/2022 4:28 PM EST) White Blood Cell 10.0(H) 4.0 - 9.5 x10(3)/[facility] Red Blood Cell 4.70 4.00 - 5.21 x10(6)/[facility] Hemoglobin 14.5 11.7 - 15.5 g/dL [facility] Hematocrit 42.5 35.7 - 45.8 % [facility] Mean Cell Volume 90.4 82.6 - 94.4 [facility] Mean Cell Hemoglobin 30.9 27.1 - 32.0 pg [facility] Mean Cell Hemoglobin Concentration 34.1 31.7 - 35.0 g/dL [facility] Platelet 339 145 - 357 x10(3)/[facility] RDW Standard Deviation 41.7 37.0 - 46.0 [facility] RDW coefficient of variation 12.7 11.5 - 14.1 % [facility] Mean Platelet Volume 10.3 7.6 - 12.9 [facility] NRBC% auto 0.0 % [facility] NRBC Absolute 0.000 0.000 - 0.000 x10(3)/ L [facility] Blood 05/07/2022 4:28 PM EST 05/07/2022 4:57 PM EST Narrative Resulting Agency Comment Spec In Lab Thony HERNANDEZ HEMATOLOGY ORDERABLE S [facility] [place] [address] * A1AT Genotype (05/07/2022 4:28 PM EST) A1AT Genotype A1AT (SERPINA1) GENOTYPING RESULTS: S ALLELE: NOT DETECTED Z ALLELE: NOT DETECTED INTERPRETATION: The absence of both the S and Z alleles in this patient along with a separate test showing normal levels of A1AT protein (162 mg/dL) in this patient? s serum suggest this patient does not have an A1AT deficiency. Although the S and Z alleles were not detected by this test, the presence of other less common A1AT variants cannot be excluded. ??These results should be interpreted based on the complete clinical presentation which may warrant additional testing and/or a genetic consultation. METHOD: Two regions of interest in the serpin peptidase inhibitor, clade A (alpha-1 antiproteinase, antitrypsin), member 1 gene (SERPINA1), commonly alpha-1 anti-trypsin or A1AT) that are known to contain variant alleles resulting in the ? S? phenotype ([id number]:c.863 A>T; [id number]) and the ? Z? phenotype (c. 1096G>A; [id number]) are amplified and genotyped by two separate PCR assays each containing two primers for amplification and two probes for detection the normal and variant alleles. ??Genomic DNA used in this testing was isolated from peripheral blood. LIMITATIONS AND DISCLAIMERS: ??Although unlikely, rare variants or polymorphisms (known or unknown) have the potential to interfere with the performance of this test, producing false negative or false positive results. ??When genotyping results are not consistent with other clinical observations or test results, additional testing should be considered. This test was developed and its performance characteristics determined by the [facility] at [facility]. It has not been cleared or approved by the FDA. The laboratory is regulated under CLIA as qualified to perform high-complexity testing. This test is used for clinical purposes. It should not be regarded as investigational or for research. [facility] Comment: [VERIFIED DATE]05.08.22 Verified By:Ryan Strickland DO Pathologist (Electronic Signature) Blood 05/07/2022 4:28 PM EST 05/08/2022 8:02 AM EST Narrative Resulting Agency Comment Spec In Lab Thony EHRNANDEZ CHEMISTRY ORDERABLES Performing Organization Address [facility] de Phone Number [facility] [place] [address] * A1AT Serum Concentration (05/07/2022 4:28 PM EST) A1AT 162 90 - 200 mg/dL [facility] Blood 05/07/2022 4:28 PM EST 05/07/2022 4:57 PM EST Narrative Resulting Agency Comment Spec In Lab Thony HERNANDEZ CHEMISTRY ORDERABLES Performing Organization Address [facility] de Phone Number [facility] [place] [address] * Hepatic Function Panel (05/07/2022 4:28 PM EST) Protein, Total 7.3 6.1 - 8.0 g/dL [facility] Albumin 4.6 3.2 - 5.2 g/dL [facility] Aspartate Aminotransferase 21 0 - 30 unit/L [facility] Alanine Aminotransferase 28 0 - 30 unit/L [facility] Alkaline Phosphatase 88 35 - 105 unit/L [facility] Bilirubin, Total 0.2 0.2 - 1.3 mg/dL [facility] Bilirubin, Direct 0.1 0.0 - 0.3 mg/dL [facility] Blood 05/07/2022 4:28 PM EST 05/07/2022 4:57 PM EST Narrative Resulting Agency Comment Spec In Lab Kayleen Black MD CHEMISTRY ORDERABLES Performing Organization Address City/[facility]/ZIP Co de Phone Number [facility] [place] [address] * Ceruloplasmin (05/07/2022 4:28 PM EST) Ceruloplasmin 28.1 16.0 - 45.0 mg/dL [facility] Blood 05/07/2022 4:28 PM EST 05/07/2022 4:57 PM EST Narrative Resulting Agency Comment Spec In Lab Kayleen Black MD CHEMISTRY ORDERABLES Performing Organization Address [facility] Co de Phone Number [facility] [place] [address] * Lipid Panel (Reflex Direct LDL) (05/07/2022 4:28 PM EST) Cholesterol, Total 218 mg/dL [facility] Comment: Lower Risk: <200 mg/dL Average Risk: 200-239 mg/dL Higher Risk: >ak=274 mg/dL Triglyceride 66 mg/dL [facility] Comment: Average Risk/Lower Risk: <150 mg/dL Borderline High Risk: 150-199 mg/dL High Risk: 200-499 mg/dL Very High Risk: >th=941 mg/dL HDL Cholesterol 74 mg/dL [facility] Comment: Males: ?? Higher Risk: <40 mg/dL Females: ?? Higher Risk: <50 mg/dL LDL Cholesterol 131 mg/dL [facility] Comment: Lowest Risk: <100 mg/dL Lower Risk: 100-129 mg/dL Borderline High Risk: 130-159 mg/dL High Risk: 160-189 mg/dL Very High Risk: >md=056 mg/dL Cholesterol/HDL Ratio 2.9 ratio [facility] Lipid Interpretation See Note [facility] Comment: Lipid management should be guided by a patient? s ASCVD risk, goals and preferences. ACC/AHA Guidelines recommend high intensity statin if clinical ASCVD or LDL greater than or equal to 190 mg/dL. http://[address].[employer]/BGB-GQK-Mublvdnhr Adults aged 40-75 with LDL 70-189 mg/dL should have their 10 year ASCVD risk estimated with the ACC/AHA ASCVD risk tank truck engine mechanic http://tools.acc.org/SMHYL-Umjm-Mcqrrncbq/ Statin should be discussed if risk greater [...] Black MD CHEMISTRY ORDERABLES Performing Organization Address City/State/[facility] Co de Phone Number [facility] [place] [address] * Hemoglobin A1c (05/07/2022 4:28 PM EST) Hemoglobin A1c 5.6 4.3 - 5.6 % [facility] Comment: Reference Range: 4.3 - [...] Mellitus, Diabetes Care 2013; 36: Suppl. 1, H26-86 Estimated Average Glucose 113 mg/dL [facility] Comment: eAG equivalents for HbA1c [...] the ADA website. Maurice CROWDER, Marcela J, Ssaha R, et al. ??Translating the A1C assay into estimated average glucose values. ??Diabetes Care 2008:31(8):4761-7408. Blood 05/07/2022 4:28 PM EST 05/07/2022 4:57 PM EST Narrative Resulting Agency Comment Spec In Lab Kayleen Black MD CHEMISTRY ORDERABLES [facility] [place] [address] documented in this encounter Visit Diagnoses Diagnosis NAFLD (nonalcoholic fatty liver disease) Other chronic nonalcoholic liver disease documented in this encounter Care Teams Filament Tester Relationship Specialty Start Date End Date Carol Randle APRN PCP - General Family Medicine 03/26/22 documented as of this encounter
--- OUTSIDE RECORDS SUMMARY | 2024-02-19 07:07 | XMS_ITS | Encounter Summary ---
Author Organization [facility] [place] [address] Care Team Providers Care Adult Psychiatrist Name Role Phone None Primary Care Provider Unavailabl e Reason for Visit * Reason Comments Post Op Encounter Details Date Type Department Care Team (Late st Contact Info) Description 04/02/2016 1:00 PM EDT Office Visit Obstetrics [place] [address] Collette Rashid MD [facility] [address] [place]STETR[facility] [place] [address] Surgical menopause; Post-operative state; Endometriosis Social History Tobacco Use Types Packs/Day [...] Sign Reading Time Taken Comments Blood Pressure 153/86 04/02/2016 1:01 PM EDT Pulse 98 04/02/2016 1:01 PM EDT Temperature 36.6 ??C (97.8 ??F) 04/02/2016 1:01 PM ED T Respiratory Rate - - Oxygen Saturation 99% 04/02/2016 1:01 PM EDT Inhaled Oxygen Concentration - - Weight - - Height - - Body Mass Index - - documented in this encounter Progress Notes * Collette Rashid - 04/02/2016 1:00 PM EDT Post-operative visit Name: Milagros Maher Date: 04/05/2016 Surgery: Total laparoscopic hysterectomy converted to abdominal hysterectomy, Bilateral salpingo-oophorectomy, Cystoscopy Surgeon: Dr. Francis Indication: endometriosis Date: 02/28/2016 Subjective: Milagros Maher is a 35 y.o. who returns for a routine post operative visit. She isnow 5 weeks post-op. Works at the [employer], not back at work yet. Still needs a nap every day. Still taking Tylenol and ibuprofen prior to sleep. Daily hotflashes and nightsweats for the past several weeks. Otherwise,her recovery has been unremarkable. Denies and problems with ambulation, bowel or bladder function., fever, chills, nausea, vomiting, chest pain or shortness of breath. Objective: Vitals: 04/02/16 1301 BP: 153/86 Pulse: 98 Temp: 36.6 ??C (97.8 ??F) General: The patient appears well, comfortable, and is answering questions Abdominal exam: Soft, non-tender. Vertical midline incision are well healing without erythema, edema, nor induration. Pelvic Exam: External genitalia normal. The vaginal mucosa is normal, vaginal cuff well healing without fluctuance or drainage. Pathology: DIAGNOSIS Uterus, bilateral fallopian tubes and ovaries (hysterectomy and bilateral salpingo-oophorectomy): ?1. Adnexal endometriosis. ?2. Ovarian follicular cysts. ?3. Bilateral benign fallopian tubes. ?4. Superficial adenomyosis. ?5. Tubo-ovarian and uterine serosal adhesions. Assessment/Plan: Milagros Maher is a 35 y.o. female who is now 5 weeks s/p QUINTEN/BSO for endometriosis. We discussed surgical menopause and hormone replacement therapy and limitations of estrogen therapy in the setting of endometriosis. Additionally, she is a current smoker. She reports she has been working on cutting down and trying to quit. Her blood pressure was also elevated today, which she attributes to coming late and rushing to appointment. Clearly reviewed the increased risk of thrombosis and stroke with hormone replacement. Will trial Combipatch at the lowest dose and follow-up in one month for efficacy as well as side-effects and blood pressure check. Reviewed signs and symptoms of blood clots and strongly encouraged smoking cessation. I reviewed the surgical findings in detail with the patient. We reviewed the procedure performed indetail and all of her questions were answered to her satisfaction. She will follow up with routine care and as needed with any questions or concerns. Patient discussed with Dr. Nette RASHID MD 04/02/2016 * Eva Bradley MD - 04/02/2016 1:00 PM EDT The case was discussed at the time of the visit. The assessment and plan were formulated in discussion with me and I agree with them as documented. I have reviewed the history, physical exam, assessment and plan with Dr Rashid. Hormone therapy to address vasomotor sx; combination to minimize stimulation of endometriosis EVA BRADLEY MD documented in this encounter Plan of Treatment Not on file documented as of this encounter Visit Diagnoses Diagnosis Surgical menopause Symptomatic states associated with artificial menopause Post-operative state Other postprocedural status Endometriosis Endometriosis, site unspecified documented in this encounter Care Teams Adult Psychiatrist Relationship Specialty Start Date End Date None None PCP - General 04/27/15 03/25/22 documented as of this encounter
--- OUTSIDE RECORDS SUMMARY | 2024-02-19 07:07 | XMS_ITS | Encounter Summary ---
[place] [address] Care Team Providers Care Relief Man Name Role Phone Carol Randle APRN Primary Care Provider Reason for Referral * Diagnostic Test (Routine) - Closed Specialty Diagnoses / Procedures Referred By Contac t Referred To Contact Radiology Diagnoses Abdominal cramping Procedures NM Functional Biliary Scan Thony Laguerre PA [address] [place] [address] [place] [address] Referral ID Status Reason Start Date Expiration Date V isits Requested Visits Authorized [id number] Closed Specialty Service Requested 05/07/2022 11/05/2023 2 2 Reason for Visit * Diagnostic Test (Routine) - Closed Specialty Diagnoses / Procedures Referred By Contac t Referred To Contact Radiology Diagnoses Abdominal cramping Procedures NM Functional Biliary Scan Thony Laguerre PA [address] [place] [address] [place] [address] Referral ID Status Reason Start Date Expiration Date V isits Requested Visits Authorized [id number] Closed Specialty Service Requested 05/07/2022 11/05/2023 2 2 Encounter Details Date Type Department Care Team (Latest Contact Info) Description 05/24/2022 12:04 PM EST - 05/24/2022 12:05 PM EST Hospital Encounter [place] [address] Kayleen Black MD [facility] [address] Abdominal cramping Discharge Disposition: Home Social History Tobacco Use [...] End Date fluticasone propionate (Flonase) 50 mcg/actuation [place], Suspension SPRAY TWO SPRAYS IN EACH NOSTRIL [...] Alfreda Delgado MD Note: [employer] such as [employer] or [employer] it, or pen and paper. If using [...] who have questions please contact the health care assistant that requested your imaging first. ? Narrative 05/24/2022 3:07 PM EST EXAMINATION: SD FUNCTIONAL BILIARY SCAN CLINICAL HISTORY: RUQ abdominal cramping, ultrasound/CT negative, r/o biliary dyskinesia TECHNIQUE: Technetium-99m mebrofenin was administered intravenously in a dose of 5.5 mCi. An image of the abdomen was obtained in the [place] projection 60 minutes later. A standard oral [...] of the abdomen was obtained in the [place] projection 60minutes later. A standard oral volume [...] patients who have questions please contactthe health care assistant that requested your imaging first. Kayleen Black MD [facility] ORDERABLES documented in this encounter Visit Diagnoses Diagnosis Abdominal cramping Abdominal pain, unspecified site documented in this encounter Administered Medications Inactive Administered Medications - up to 3 most recent administrations Medication Order MAR Action Action Date Dose Rate Site technetium (Tc-99m) mebrofenin injection 0-6 mCi 0-6 mCi, Intravenous, ONCE PRN, 1 dose, Starting on Margie 05/24/22 at 1250, Until Margie 05/24/22 at 1245, Per Protocol, Radiology Contrast, Routine Given 05/24/2022 12:45 PM EST 5.5 mCi Right Arm documented in this encounter Care Teams Relief Man Relationship Specialty Start Date End Date Carol Randle, JORDY PCP - General Family Medicine 03/26/22 documented as of this encounter
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
--- OUTSIDE RECORDS SUMMARY | 2024-02-19 07:07 | XMS_ITS | Encounter Summary ---
Author Organization [facility] Address [facility] [place] [address] Care Team Providers Care [employer] T[employer] Repairer Name Role Phone Carol Randle APRN Primary Care Provider [phone] Encounter Details Date Type Department Care Team (Latest Contact Info) Description 05/22/2022 Travel Social History Tobacco Use Types Packs/Day [...] on filedocumented in this encounter Care Teams [employer] Repairer Relationship Specialty Start Date End Date Carol Randle APRN PCP - General Family Medicine 03/26/22 documented as of this encounter
[2024-02-19 07:08] LABS: Bilirubin Negative (Negative); Blood Trace-intact (Negative); Clarity Sl Cloudy (Clear); Glucose Negative (Negative); Ketones Trace mg/dL (Negative); Leukocyte Esterase Negative (Negative); Nitrite Negative (Negative); pH 7.5 (5-8)
[2024-02-19 07:12] LABS: Abs Immature Grans 0.13 10^3/uL (0.0-0.06); Absolute Lymphocyte Count 1.65 10^3/uL (1.2-3.4); Basophils % 0.3 %; Eosinophils % 0.6 %; HCT 44.1 % (36.0-46.0); HGB 15.3 g/dL (11.2-15.7); Immature Grans % 0.6 %; Lymphocytes % 7.4 %; MCH 31.5 pg (27.0-33.0); MCHC 34.7 % (32.0-36.0); MCV 91 fL (80-95); MPV 10.3 fL (8.0-11.0); Monocytes % 5.2 %; Neutrophils % 85.9 %; Platelet Count 310 10^3/uL (130-400); RBC 4.85 10^6/uL (3.93-5.22); RDW 11.9 % (11.7-14.6); RDW-SD 39.5 fL; WBC 22.28 10^3/uL (4.4-10.8)
[2024-02-19 07:14] LABS: Absolute Basophil Count 0.07 10^3/uL (0.0-0.2); Absolute Eosinophil Count 0.13 10^3/uL (0.0-0.7); Absolute Monocyte Count 1.16 10^3/uL (0.1-0.8); Absolute Neutrophil Count 19.14 10^3/uL (1.2-6.7)
--- NOTE | 2024-02-19 07:15 | DI.RAD_ITS ---
Exam(s) XR CHEST 2V PA LATERAL EXAM: XR CHEST 2V PA LATERAL CLINICAL HISTORY: ?pneumonia. TECHNIQUE: 2D digital imaging was performed. COMPARISON: CR,XR XR PORTABLE CHEST AP from 11/06/2021 FINDINGS: 2 views: Heart size is normal. The mediastinum is not widened. Lungs are clear. No infiltrates nor pleural effusions. IMPRESSION: No acute pulmonary findings. DATA REPOSITORY: RADIATION DOSE DELIVERED:
[2024-02-19 07:18] LABS: Bacteria Negative HPF (Negative); C & S Indicated? No; Casts Negative LPF (Negative); Crystals Moderate Amorphous HPF (Negative); Epithelial Cells Moderate HPF (Negative); Mucus Trace (Negative); RBC 0-2 HPF (0-2); WBC Negative HPF (0-5)
[2024-02-19] MEDS: Omnipaque 350 MG/ML 100 ML BTL IJ (07:27)
[2024-02-19] MEDS: Normal Saline - Diluent 50 ML VIAL IJ (07:28)
[2024-02-19 07:38] LABS: ALT 19 U/L (14-59); AST 13 U/L (15-37); Albumin 3.9 g/dL (3.4-5.0); Alkaline Phosphatase 90 U/L (46-116); BUN 14 mg/dL (7-18); Bilirubin, Total 0.54 mg/dL (0.2-1.0); CREATININE 0.9 mg/dL (0.55-1.02); Chloride 106 mmol/L (98-107); Estimated GFR 82.37 (mL/min/1.73m2); Glucose 112 mg/dL (74-106); Lipase 38 U/L (16-77); Potassium 3.5 mmol/L (3.5-5.1); Sodium 140 mmol/L (136-145); Total Protein 7.3 g/dL (6.4-8.2)
[2024-02-19 07:47] LABS: Calcium 9.6 mg/dL (8.5-10.1)
--- NOTE | 2024-02-19 08:07 | W.SURGCON ---
Date of service: 02/19/24 Time of Service: 08:07 Assessment and Plan Assessment and plan (1) Acute appendicitis: Status: Acute Assessment and plan: 43-year-old woman with acute appendicitis. She is hemodynamically stable. Her clinical story is concerning for appendicitis. I reviewed her CT scan which shows some thickening of the appendix. Her cecum and ascending colon appear unusually midline(floating cecum?) though I do not appreciate obvious malrotation anywhere else. There is no free fluid or free air. Possible appendicolith present. No evidence of rupture. I discussed the role for appendectomy with her. The presence of an appendicolith is a contraindication to non-operative antibiotic therapy. She understands the indications, the likely benefits as well as the possible risks of surgery and wishes to proceed. Overall recommendation: Laparoscopic appendectomy History of Present Illness Narrative: Milagros is a healthy 43-year-old woman who was in her good in usual state of health when last night she started having right-sided abdominal pain. She has not had pain like that before although it was somewhat similar to her gallbladder she recalls but only because it hurts. The pain is steadily worsened throughout the night and for this reason she came to the emergency department today where CT scan was performed and showed findings consistent with appendicitis. She has had a laparoscopic cholecystectomy as well as a hysterectomy for surgical history. She is otherwise healthy. PFSH All Active Problems (Updated 02/19/24 @ 08:19 by Don Paez MD) Acute appendicitis (Acute) Patellofemoral syndrome (Acute) Depression (Acute) Anxiety (Acute) BMI 29.0-29.9,adult (Acute) Kidney stones (Acute) Hx of endometriosis (Acute) History of asthma (Acute) Tendinitis of long head of biceps brachii of left shoulder (Acute ~07/2019) Headache, unspecified (Acute) Jaw pain (Acute) Sinusitis, chronic (Acute) Anticipatory grieving (Acute) Plantar fasciitis, bilateral (Acute) Lumbar radiculopathy (Acute) Benign essential HTN (Acute) Tobacco smoker within last 12 months (Acute) Chronic rhinitis (Acute) Mucocele of maxillary sinus (Acute) COVID-19 (Acute) Asthma (Chronic) Medical History Requires supplemental oxygen per pt. states when she sleeps her O2 drops to the 80's and has to wear 2L O2 at night Hypoxemia per pt. states when she sleeps her o2 drops to the 80's and has to wear 2L O2 at night Lipoma of extremity Bursitis of left shoulder Biceps tendonitis on left Raynauds syndrome PTSD (post-traumatic stress disorder) Per pt. states no issues currently History of depression Light tobacco smoker Fatigue Pain in left shoulder Dysmenorrhea (03/24/15) Dyspareunia (02/23/15) Menorrhagia (02/23/15) 7-10d menses Surgical History S/P excision of lipoma left shoulder S/P QUINTEN-BSO Curettage of endometrium (03/17/15) Dr. Rosenda Mathews Pathologic Diagnosis -Proliferative endometrium with extensive stomal breakdown -Benign fragments of squamous mucosa -No cytologic atypia Family History Mother Asthma Depression Social History Smoking/Tobacco Use Status: Current every day Tobacco Type: cigarettes Smoking risk assessment performed?: Yes Alcohol Intake: current Alcohol Intake frequency: holidays/special occasions only Drug use: Never Substance use type: does not use Current gender identity: female Do you feel safe at home: Yes Do you feel safe in your relationship?: Yes Exam Narrative Exam Narrative: General: Nontoxic but uncomfortable in appearance. Otherwise healthy and good nutritional status. Neuro: Alert and oriented x 3 Psych: Good mood and affect, good insight and understanding into her condition Chest: Nonlabored breathing, no shortness of breath no wheezing Heart: Regular Abdomen: Soft, nondistended, focal tenderness in the right lower quadrant with tap tenderness. No right upper quadrant tenderness. The left lower quadrant is also not tender. No Rovsing sign. Results Last Vital Signs Temp 99.7 F H 02/19/24 07:28 Pulse 94 H 02/19/24 07:28 Resp 16 02/19/24 07:28 BP 132/89 02/19/24 07:28 Pulse Ox 94 02/19/24 07:28 Labs 02/19/24 07:02 02/19/24 07:02 Labs: Laboratory Results - last 24 hr 02/19/24 02/19/24 02/19/24 06:34 06:54 07:02 WBC 22.28 H RBC 4.85 Hgb 15.3 Hct 44.1 MCV 91 MCH 31.5 MCHC 34.7 RDW 11.9 Plt Count 310 MPV 10.3 Immature Gran % 0.6 Neutrophils % 85.9 Lymphocytes % 7.4 Monocytes % 5.2 Eosinophils % 0.6 Basophils % 0.3 Nucleated RBC % 0.0 Absolute Neutrophils 19.14 H Absolute Lymphocytes 1.65 Absolute Monocytes 1.16 H Absolute Eosinophils 0.13 Absolute Basophils 0.07 Sodium 140 Potassium 3.5 Chloride 106 Carbon Dioxide 23.0 Anion Gap 11.0 BUN 14 Creatinine 0.9 Est GFR (CKD-EPI 2020) 82.37 Glucose 112 H Calcium 9.6 Total Bilirubin 0.54 AST 13 L ALT 19 Alkaline Phosphatase 90 Total Protein 7.3 Albumin 3.9 Lipase 38 Serum HCG, Qual Cancelled Urine Color Yellow Urine Clarity Sl Cloudy Urine pH 7.5 Ur Specific [place] 1.020 Urine Protein Negative Urine Ketones Trace H Urine Blood Trace-intact H Urine Nitrite Negative Urine Bilirubin Negative Urine Urobilinogen 2.0 H Ur Leukocyte Esterase Negative Urine RBC 0-2 Urine WBC Negative Ur Epithelial Cells Moderate Urine Crystals Moderate Amorphous Urine Bacteria Negative Urine Casts Negative Urine Mucus Trace Ur Culture Indicated? No Urine Glucose Negative
--- NOTE | 2024-02-19 08:17 | ED.PROG_ITS ---
Date of service: 02/19/24 Time of Service: 08:19 Medical Decision Making Patient signed out to me pending lab work and CT imaging. X-ray of the chest is unremarkable, patient has a white count of 22, CT does show evidence of appendicitis. Patient states her pain started last night around 8 PM she localizes it to the right upper quadrant is tender. In this area no significant tenderness in the lower abdomen. Dr. Tucker from general surgery consulted and plan for admission and surgery. Zosyn ordered. Patient updated and agrees with plan Quality:[facility] Health Related Social Needs: No Data to Display Sign Out Sign Out Data: Sign Out Comment: 43yo F, prior katrin, RUQ and epigastric pain and nausea since last night. Epigastric tenderness, not peritoneal. Pending labs, urine, CT. Last updated by Jodee Mclean MD at 02/19/24 06:53 Discharge Plan Disposition Patient Disposition: Admit to [facility] Condition: Stable Discharge Details Chief Complaint: Abd Prob Clinical Impression: Acute appendicitis Primary Care Provider: Rosanna Godinez V ED Provider: Don Paez Home Meds and New Rx's Prescriptions: No Action montelukast 10 mg tablet 10 mg PO QPM albuterol sulfate [ProAir HFA] 90 mcg/actuation HFA aerosol inhaler 2 puff inhalation .Q4-6H PRN fluticasone propionate [Flonase Allergy Relief] 50 mcg/actuation spray,suspension 2 spray intranasal DAILY Qty: 16 12RF Rx Instructions: administer into each nostril folic acid 1 mg tablet 1 mg PO DAILY loratadine [Allergy Relief (loratadine)] 10 mg tablet 10 mg PO DAILY Spiriva Respimat 2.5 mcg/actuation mist 2 puff inhalation DAILY cholecalciferol (vitamin D3) 1,000 unit/drop drops 1,000 unit PO HS Patient Comments: Dosing changed per patient 03/09/23 budesonide-formoterol [Symbicort] 160-4.5 mcg/actuation Hfa Aerosol Inhaler 2 puff INHALATION BID
[2024-02-19] MEDS: PIPERACILLIN/TAZO 4.5 GM in Normal Saline 100 ML IVPB (09:15)
[2024-02-19] MEDS: Heparin 5,000 UNITS/ML VIAL 5000 UNITS SC ×2 (11:37→20:04)
--- OUTSIDE RECORDS SUMMARY | 2024-02-19 13:12 | XMS_ITS | Encounter Summary ---
Author Organization [facility] Address [address] [place] [address] Care Team Providers Care Sales Representative Womens Health Name Role Phone Hung Willis MD Primary Care Provider Unav ailable Encounter Details Date Type Department Care Team (Late st Contact Info) Description 10/16/2021 Lab Requisition [facility] Pathology & Laboratory Medicine - [facility] [address] [place], [place] [address] Outr Resulting Lab, Provider Social History Tobacco [...] 90 - 200 mg/dL 10/17/2021 10:07 EDT [facility] Blood VENOUS BLOOD / Unknown 10/16/2021 11:15 EDT 10/16/2021 20:57 EDT Provider Outr Resulting Lab CHEMISTRY & BLOOD GAS ORDERABLES [facility] [address] [place] [address] documented in this encounter Visit Diagnoses Not on filedocumented in this encounter Care Teams Sales Representative Womens Health Relationship Specialty Start Date End Date Hung Willis MD PCP - General 03/22/15 documented as of this encounter
--- OUTSIDE RECORDS SUMMARY | 2024-02-19 13:12 | XMS_ITS | Referral Summary ---
Author Organization [facility] Address [address] [place] [address] Care Team Providers Care Field Cashier Name Role Phone Hung Willis MD Primary [...] Antibody Negative Negative 10/04/2021 10:42 EDT [facility] Blood VENOUS BLOOD / Unknown 10/02/2021 16:20 EDT 10/03/2021 16:48 EDT Provider Outr Resulting Lab CHEMISTRY & BLOOD GAS ORDERABLES [facility] [address] [place] [address] from Last 3 Months or Most Recently Relevant to Health Maintenance Care Teams Field Cashier Relationship Specialty Start Date End Date Hung Willis MD PCP - General 03/22/15
--- OUTSIDE RECORDS SUMMARY | 2024-02-19 13:12 | XMS_ITS | Clinical Summary ---
Author Organization [facility] Address [address] [place] [address] Care Team Providers Care Steel Estimator Name Role Phone Hung Willis MD Primary [...] C Antibody Negative Negative 10/04/2021 10:42 EDT [facility] Blood VENOUS BLOOD / Unknown 10/02/2021 16:20 EDT 10/03/2021 16:48 EDT Provider Outr Resulting Lab CHEMISTRY & BLOOD GAS ORDERABLES [facility] [address] [place] [address] from Last 3 Months or Most Recently Relevant to Health Maintenance Care Teams Steel Estimator Relationship Specialty Start Date End Date Hung Willis MD PCP - General 03/22/15
--- OUTSIDE RECORDS SUMMARY | 2024-02-19 13:12 | XMS_ITS | Encounter Summary ---
Author Organization [facility] Address [address] [place] [address] Care Team Providers Care Scientific Editor Name Role Phone Hung Willis MD Primary Care Provider Unav ailable Encounter Details Date Type Department Care Team (Late st Contact Info) Description 10/03/2021 Lab Requisition [facility] Pathology & Laboratory Medicine - [facility] [address] [place], [place] [address] Outr Resulting Lab, Provider Social History Tobacco [...] 46.8 See Note mIU/mL 10/04/2021 9:48 EDT [facility] Comment: Reference Range for Hep B Surface Ab, Quant: Positive: >= 10.0 mIU/mL Negative: ??< 10.0 mIU/mL Patient is presumed to be immune to infection with Hepatitis B Virus. Hep B Surface Ab, Qualitative Positive See Note 10/04/2021 9:48 EDT [facility] Comment: Reference Range for Hep B Surface Ab, Qual: Unvaccinated: ??Negative Vaccinated: ??Positive Blood VENOUS BLOOD / Unknown 10/02/2021 16:20 EDT 10/03/2021 16:48 EDT Provider Outr Resulting Lab CHEMISTRY & BLOOD GAS ORDERABLES Performing Organization Address City/[facility] Co de Phone Number [facility] [address] [place] [address] * HEPATITIS C AB W REFLEX TO HCV RNA BY PCR (10/02/2021 16:20 EDT) Hep C Antibody Negative Negative 10/04/2021 10:42 EDT [facility] Blood VENOUS BLOOD / Unknown 10/02/2021 16:20 EDT 10/03/2021 16:48 EDT Provider Outr Resulting Lab CHEMISTRY & BLOOD GAS ORDERABLES Performing Organization Address City/[facility] Co de Phone Number [facility] [address] [place] [address] documented in this encounter Visit Diagnoses Not on filedocumented in this encounter Care Teams Scientific Editor Relationship Specialty Start Date End Date Hung Willis MD PCP - General 03/22/15 documented as of this encounter
--- OUTSIDE RECORDS SUMMARY | 2024-02-19 13:12 | XMS_ITS | Encounter Summary ---
Author Organization [facility] Address [address] [place] [address] Care Team Providers Care Coat Agent Name Role Phone Hung Willis MD Primary Care Provider Unav ailable Encounter Details Date Type Department Care Team (Late st Contact Info) Description 07/06/2022 Lab Requisition [facility] Pathology & Laboratory Medicine - [facility] [address] [place] [address] Jori Cherry MD [address] [place] [address], [address] [place] [address] Other specified diseases of gallbladder [...] management options, if applicable. 07/11/2022 9:[address] [facility] Final Diagnosis A. GALLBLADDER, CHOLECYSTECTOMY: - Chronic cholecystitis. 07/11/2022 9:29 [facility] Attestation There was significant resident/fellow involvement in the diagnostic evaluation of this case. By the signature below, the attending physician certifies that they have personally conducted a gross and/or microscopic examination of the described specimens and rendered or confirmed the above diagnosis. 07/11/2022 9:29 [facility] at 0929 Clinical History Biliary dyskinesia 07/11/2022 9:29 [facility] Gross Description A. Received in [...] no choleliths present within the specimen. Two sales representative canvas products sections and the en face cystic duct margin are submitted in A1. CHANTEL CORLEY MD 07/09/2022 13:51 07/11/2022 9:29 [facility] Resident/Raghu w: Chantel Corley MD 07/11/2022 9:29 [facility] Performing Lab [facility] 07/11/2022 9:29 [facility] Scanned Images 07/11/2022 9:29 [facility] Tissue ENTIRE GALLBLADDER / Unknown 07/06/2022 11:54 EST 07/06/2022 19:48 EST Jori Cherry MD PATHOLOGY ORDERABLES [facility] [address] [place] [address] documented in this encounter Visit Diagnoses Diagnosis Other specified diseases of gallbladder documented in this encounter Care Teams Coat Agent Relationship Specialty Start Date End Date Hung Willis MD PCP - General 03/22/15 documented as of this encounter
--- OUTSIDE RECORDS SUMMARY | 2024-02-19 13:12 | XMS_ITS | Encounter Summary ---
Author Organization [facility] Address [address] [place] [address] Care Team Providers Care Study Abroad Advisor Name Role Phone Hung Willis MD Primary Care Provider Unav ailable Encounter Details Date Type Department Care Team (Late st Contact Info) Description 04/10/2023 Lab Requisition [facility] Pathology & Laboratory Medicine - [facility] [address] [place], [place] [id number] Outr Resulting Lab, Provider Social History Tobacco [...] * QUANTIFERON INTERPRETATION (PERFORMABLE) (04/09/2023 16:20 EDT) [facility] Quantiferon Interpretation Negative Negative 04/11/2023 11:[address] [facility] Comment:No interferon-gamma response to M. tuberculosis antigens was detected. ??Infection with M. tuberculosis is unlikely. A single negative result does not exclude infection with M. tuberculosis. ??In patients at high risk for M. tuberculosis infection, a second test should be considered. TB1 Ag minus Nil 0.00 IU/ml 04/11/20 11:[address] [facility] TB2 Ag minus Nil 0.01 IU/mL 04/11/20 11:[address] [facility] Blood VENOUS BLOOD / Unknown 04/09/2023 16:20 EDT 04/11/2023 11:[address] [facility] - 04/11/2023 11:45 EDT Results were obtained with the [employer] QuantiFERON-TB Gold Plus CLIA. New platform in use 03/01/2021 Provider Outr Resulting Lab IMMUNOLOGY A ND SEROLOGY ORDERABLES Performing Organization Address City/[facility] Co de Phone Number [facility] [address] [place] [address] * QUANTIFERON MITOGEN (PERFORMABLE) (04/09/2023 16:20 EDT) Blood VENOUS BLOOD / Unknown 04/09/2023 16:20 EDT 04/10/2023 17:15 EDT Provider Outr Resulting Lab IMMUNOLOGY A ND SEROLOGY ORDERABLES [facility] [address] [place] [address] * QUANTIFERON TB2 (PERFORMABLE) (04/09/2023 16:20 EDT) Blood VENOUS BLOOD / Unknown 04/09/2023 16:20 EDT 04/10/2023 17:15 EDT Provider Outr Resulting Lab IMMUNOLOGY A ND SEROLOGY ORDERABLES Performing Organization Address City/[facility]/ZIP Co de Phone Number [facility] [address] [place] [address] * QUANTIFERON TB1 (PERFORMABLE) (04/09/2023 16:20 EDT) Blood VENOUS BLOOD / Unknown 04/09/2023 16:20 EDT 04/10/2023 17:15 EDT Provider Outr Resulting Lab IMMUNOLOGY A ND SEROLOGY ORDERABLES Performing Organization Address [facility] Co de Phone Number [facility] [address] [place] [address] * QUANTIFERON NIL (PERFORMABLE) (04/09/2023 16:20 EDT) Blood VENOUS BLOOD / Unknown 04/09/2023 16:20 EDT 04/10/2023 17:15 EDT Provider Outr Resulting Lab IMMUNOLOGY A ND SEROLOGY ORDERABLES Performing Organization Address [facility] Co de Phone Number [facility] [address] [place] [address] documented in this encounter Visit Diagnoses Not on filedocumented in this encounter Care Teams Study Abroad Advisor Relationship Specialty Start Date End Date Hung Willis MD PCP - General 03/22/15 documented as of this encounter
--- OUTSIDE RECORDS SUMMARY | 2024-02-19 13:12 | XMS_ITS | Encounter Summary ---
Author Organization [facility] Address [address] [place] [address] Care Team Providers Care Detention Sergeant Name Role Phone Hung Willis MD Primary Care Provider Unav ailable Encounter Details Date Type Department Care Team (Late st Contact Info) Description 02/28/2022 Lab Requisition [facility] Pathology & Laboratory Medicine - [facility] [address] [place], [place] [address] Outr Resulting Lab, Provider Social History Tobacco [...] 14:18 EDT) Hold Hold 02/28/2022 18:[address] [facility] Blood VENOUS BLOOD / Unknown Non-Lab Collect / Unknown 02/27/2022 14:18 EDT 02/28/2022 17:01 EDT Provider Outr Resulting Lab LAB INFO SER VICE AND SUPPORT & PHONE RESULT Performing Organization Address City/[facility]/ZIP Co de Phone Number [facility] [address] [place] [address] * HOLD SST (02/27/2022 14:18 EDT) Hold Hold 02/28/2022 18:[address] [facility] Blood VENOUS BLOOD / Unknown Non-Lab Collect / Unknown 02/27/2022 14:18 EDT 02/28/2022 17:01 EDT Provider Outr Resulting Lab LAB INFO SER VICE AND SUPPORT & PHONE RESULT Performing Organization Address City/[facility]/ZIP Co de Phone Number [facility] [address] [place] [address] * HEPATITIS B SURFACE ANTIBODY (02/27/2022 14:18 EDT) Hep B Surface Ab, Quantitative 36.2 See Note mIU/mL 03/01/2022 8:[address] [facility] Comment: Reference Range for Hep B Surface Ab, Quant: Positive: >= 10.0 mIU/mL Negative: ??< 10.0 mIU/mL Patient is presumed to be immune to infection with Hepatitis B Virus. Hep B Surface Ab, Qualitative Positive See Note 03/01/2022 8:[address] [facility] Comment: Reference Range for Hep B Surface Ab, Qual: Unvaccinated: ??Negative Vaccinated: ??Positive Blood VENOUS BLOOD / Unknown Non-Lab Collect / Unknown 02/27/2022 14:18 EDT 02/28/2022 17:01 EDT Provider Outr Resulting Lab CHEMISTRY & BLOOD GAS ORDERABLES Performing Organization Address [facility] Co de Phone Number [facility] [address] [place] [address] * MEASLES IGG AB (02/27/2022 14:18 EDT) Measles IgG Ab Positive See Note 03/01/2022 9:[address] [facility] Comment:Presence of detectab le measles virus IgG antibodies. Blood VENOUS BLOOD / Unknown Non-Lab Collect / Unknown 02/27/2022 14:18 EDT 02/28/2022 17:01 EDT Provider Outr Resulting Lab IMMUNOLOGY A ND SEROLOGY ORDERABLES Performing Organization Address [facility] de Phone Number [facility] [address] [place] [address] * VARICELLA IGG ANTIBODY (02/27/2022 14:18 EDT) Varicella IgG Ab Positive See Note 03/01/2022 9:[address] [facility] Comment:Presence of detectab le Varicella Zoster virus IgG antibodies. Blood VENOUS BLOOD / Unknown Non-Lab Collect / Unknown 02/27/2022 14:18 EDT 02/28/2022 17:01 EDT Provider Outr Resulting Lab IMMUNOLOGY A ND SEROLOGY ORDERABLES Performing Organization Address [facility] de Phone Number [facility] [address] [place] [address] * MUMPS ANTIBODY IGG (02/27/2022 14:18 EDT) Mumps Antibody IgG Positive See Note 03/01/2022 9:[address] [facility] Comment:Presence of detectab le mumps virus IgG antibodies. Blood VENOUS BLOOD / Unknown Non-Lab Collect / Unknown 02/27/2022 14:18 EDT 02/28/2022 17:01 EDT Provider Outr Resulting Lab IMMUNOLOGY A ND SEROLOGY ORDERABLES Performing Organization Address [facility] Co de Phone Number [facility] [address] [place] [address] * RUBELLA IGG ANTIBODY (02/27/2022 14:18 EDT) Rubella IgG Ab Negative See Note 03/01/2022 9:[address] [facility] Comment:Sample is considered negative [...] & BLOOD GAS ORDERABLES Performing Organization Address [facility] Co de Phone Number [facility] [address] [place] [address] documented in this encounter Visit Diagnoses Not on filedocumented in this encounter Care Teams Detention Sergeant Relationship Specialty Start Date End Date Hung Willis MD PCP - General 03/22/15 documented as of this encounter
--- OUTSIDE RECORDS SUMMARY | 2024-02-19 13:13 | XMS_ITS | Encounter Summary ---
Author Organization [facility] Address [address] [place] [address] Care Team Providers Care Copier Repair Technician Name Role Phone Unavailable Primary Care Provider Unavailabl e Encounter Details Date Type Department Care Team (Late st Contact Info) Description 01/15/2001 Results Only [facility] [address] [place] [address] Richard Wood CNM Social History Tobacco Use [...] ? ANNALISA MONROY ? Accession #: ? [id number] : ? 1980 (Age: 20) ??F ?Collect [...] Wood CNM PATHOLOGY ORDERABLES [facility] [address] [place] [address] documented in this encounter Visit Diagnoses Not on filedocumented in this encounter
--- OUTSIDE RECORDS SUMMARY | 2024-02-19 13:13 | XMS_ITS | Encounter Summary ---
Author Organization [facility] Address [address] [place] [address] Care Team Providers Care Lube Man Name Role Phone Unavailable Primary Care Provider Unavailabl e Encounter Details Date Type Department Care Team ([facility] st Contact Info) Description 10/11/2000 Results Only [facility] [address] [place] [address] Volodymyr Plascencia MD [address] [place] [address] [id number] Social History Tobacco Use Types Packs/Day Years [...] ? ANNALISA MONROY ? Accession #: ? [id number] : ? 1980 (Age: 20) ??F ?Collect [...] Plascencia MD PATHOLOGY ORDERABLES [facility] [address] [place] [address] documented in this encounter Visit Diagnoses Not on filedocumented in this encounter
--- OUTSIDE RECORDS SUMMARY | 2024-02-19 13:13 | XMS_ITS | Encounter Summary ---
Author Organization [facility] Address [facility] [place] [address] Care Team Providers Care Children'S Author Name Role Phone Carol Randle APRN Primary Care Provider [phone] Reason for Visit * Diagnostic Test (Routine) - Closed Specialty Diagnoses / Procedures Referred By Contac t Referred To Contact Radiology Diagnoses Abdominal cramping Procedures NM Functional Biliary Scan Thony Laguerre, DAVID [address] [place] [address] [place] [address] Referral ID Status Reason Start Date Expiration Date V isits Requested Visits Authorized [id number] Closed Specialty Service Requested 05/07/2022 11/05/2023 2 2 Encounter Details Date Type Department Care Team (Latest Contact Info) Description 05/24/2022 12:06 PM EST - 05/24/2022 11:59 PM [facility] Hospital [place] [address] Kayleen Black MD [facility] [place] [address] Discharge Disposition: Home Social History [...] End Date fluticasone propionate (Flonase) 50 mcg/actuation [place], Suspension SPRAY TWO SPRAYS IN EACH NOSTRIL [...] Alfreda Delgado MD Note: BAYRON such as [employer] Farmerypal or [employer] it, or pen and paper. If using [...] who have questions please contact the health small animal caretaker that requested your imaging first. ? Narrative 05/24/2022 3:07 PM EST EXAMINATION: NM FUNCTIONAL BILIARY SCAN CLINICAL HISTORY: RUQ abdominal cramping, ultrasound/CT negative, r/o biliary dyskinesia TECHNIQUE: Technetium-99m mebrofenin was administered intravenously in a dose of 5.5 mCi. An image of the abdomen was obtained in the [place] projection 60 minutes later. A standard oral [...] of the abdomen was obtained in the [place] projection 60minutes later. A standard oral volume [...] patients who have questions please contactthe health small animal caretaker that requested your imaging first. Kayleen Black MD IM NM ORDERABLES documented in this encounter Visit Diagnoses Not on filedocumented in this encounter Care Teams Children'S Author Relationship Specialty Start Date End Date Carol Randle APRN PCP - General Family Medicine 03/26/22 documented as of this encounter
--- OUTSIDE RECORDS SUMMARY | 2024-02-19 13:13 | XMS_ITS | Encounter Summary ---
Author Organization [facility] Address [address] [place] [address] Care Team Providers Care Equipment Service Technician Name Role Phone Unavailable Primary Care Provider Unavailabl e Encounter Details Date Type Department Care Team (Late st Contact Info) Description 03/23/2002 Results Only [facility] - Maple conversion [address] [place] [address] Hugh Norris MD Social History Tobacco Use [...] ? ANNALISA MONROY ? Accession #: ? [id number] : ? 1980 (Age: 21) ??F ?Collect [...] Norris MD PATHOLOGY ORDERABLES GABBI HASSAN [address] [place] [address] documented in this encounter Visit Diagnoses Not on filedocumented in this encounter
--- OUTSIDE RECORDS SUMMARY | 2024-02-19 13:13 | XMS_ITS | Encounter Summary ---
Author Organization [facility] [place] [address] Care Team Providers Care Technical Applications Specialist Name Role Phone Carol Randle APRN Primary Care Provider [phone] Encounter Details Date Type Department Care Team (Late st Contact Info) Description 09/19/2022 Notes Only [place] [address] Alfreda Delgado MD [facility] [place] [address] Social History Tobacco Use Types Packs/Day Years [...] SENT LINK. VOICEMAIL WAS FULL. PRE-CHARTING SAVED. [facility] Visit ( ) IN CLINIC (xx ) video visit ( ) phone visit Patient Name: Milagros Maher Date of : 1980 Age: 42 y.o. Carol Randle APRN is PCP. Thank you for referring Milagros Maher to the [facility] for consultation regarding obesity. CHIEF COMPLAINT: Follow-up for Obesity Pathway:obesity medicine INTERVAL HISTORY / PROGRESS TOWARD GOALS: [x] I reviewed past / interim records including notes and labs. This is the 2nd folllow up [facility] visit for this 42 y.o. y.o. patient [...] (reviewed): [place] 08/21/2022. Last visit with health assistant men's soccer coach Bertin Bobo: 08/06/2021. Referrals done other than dietitian and health assistant men's soccer coach: ( ) [facility] emotional eating group [...] ??? TRACK food intake BAYRON such as Base79pal or Lose it, or pen and paper. [...] Alfreda Delgado MD Note: BAYRON such as myPin-Digitalpal or Lose it, or pen and paper. If using bayron or activity monitor, don't add in extra calories for the calories you burn. work on NOT getting out of bed to eat Lifestyle No Alfreda Delgado MD have protein-containin g breakfast Lifestyle No Alfreda Delgado MD self-awareness and goal setting Lifestyle No Bertin Bboo Note: Draft a Wellness [employer]. Nutrition - [...] on filedocumented in this encounter Care Teams Technical Applications Specialist Relationship Specialty Start Date End Date Carol Randle APRN PCP - General Family Medicine 03/26/22 documented as of this encounter
--- OUTSIDE RECORDS SUMMARY | 2024-02-19 13:13 | XMS_ITS | Encounter Summary ---
Author Organization [facility] [place] [address] Care Team Providers Care Highway Traffic Control Technician Name Role Phone Carol Randle APRN Primary Care Provider [phone] Encounter Details Date Type Department Care Team (Late st Contact Info) Description 03/20/2023 11:00 AM EDT TH Visit (TeleHealth) [place] [address] [facility] [place] [address] Adult BMI 33.0-33.9 kg/sq m Social History [...] peanut butter OR breakfast sandwich, egg, hodges, greek muffin OR omelettes - eggs, veggies 12 [...] MS RDN LD 30 minutes were spent ctof-dz-saqq with this patient today, whether in person [...] Minute Resistance Band Workout for Beginners (medium) https://www.Creative Circle [employer]vertising Solutions.com/watch?v=rJCavcf95rb You should all have resistance bands from [...] holding the starting position of that movement. https://www.BotScannerube.com/watch?v=D8fSOtZsPPN Seated Resistance Band Exercises https://www.BotScannerube.com/watch?v=KSUoKByDckc Simple Yoga-based strength training https://www.youEagle Eye Solutionsube.com/watch?v=q5obOCMTkQS Balance and Strength training on Stairs https://www.BotScannerube.com/watch?v=gBTHlOQUCRo TRACK food intake Lifestyle No Alfreda Delgado MD Note: BAYRON such as Executive Channelpal or Lose it, or pen and paper. [...] adult documented in this encounter Care Teams Highway Traffic Control Technician Relationship Specialty Start Date End Date Carol Randle APRN PCP - General Family Medicine 03/26/22 documented as of this encounter
--- OUTSIDE RECORDS SUMMARY | 2024-02-19 13:13 | XMS_ITS | Encounter Summary ---
Author Organization [facility] Address [address] [place] [address] Care Team Providers Care Small Equipment Operator Name Role Phone Hung Willis MD Primary Care Provider Unav ailable Encounter Details Date Type Department Care Team (Late st Contact Info) Description 12/14/2020 Lab Requisition [facility] Pathology & Laboratory Medicine - [facility] [address], [place] [address] Outr Resulting Lab, Provider Social History Tobacco [...] Lab MICROBIOLOGY - GENERAL ORDERABLES [facility] [address] [place] [address] * COVID-19 TESTING (12/13/2020 17:20 EDT) COVID-19 rt-PCR Result Negative Negative 12/15/2020 13:49 EDT [facility] Comment: This test has not [...] developed and its performance characteristics determined by [facility]. It has not been cleared or approved [...] testing. This test is based on the [facility] COVID-19 Emergency Use Authorization (EUA) assay, with minor modification as defined by the FDA Performed on the [place] [employer] 7 Flex RT-PCR System. Performing Lab [facility] 12/15/2020 13:49 EDT [facility] Swab 12/13/2020 17:2 0 EDT 12/14/2020 15:35 EDT Provider Outr Resulting Lab MICROBIOLOGY - GENERAL ORDERABLES [facility] [address] [place] [address] documented in this encounter Visit Diagnoses Not on filedocumented in this encounter Care Teams Small Equipment Operator Relationship Specialty Start Date End Date Hung Willis MD PCP - General 03/22/15 documented as of this encounter
--- OUTSIDE RECORDS SUMMARY | 2024-02-19 13:13 | XMS_ITS | Encounter Summary ---
Author Organization [facility] Address [address] [place] [address] Care Team Providers Care Extension Work Director Name Role Phone Unavailable Primary Care Provider Unavailabl e Encounter Details Date Type Department Care Team (Late st Contact Info) Description 05/18/2003 Results Only [facility] - Maple conversion [address] [place] [address] George, September, [facility] [address] [place] [phone] Social History Tobacco Use Types Packs/Day [...] ? ANNALISA MONROY ? Accession #: ? [id number] : ? 1980 (Age: 23) ??F ?Collect [...] Abdiasvee [facility] PATHOLOGY ORDERABLES GABBI HASSAN [address] [place] [address] documented in this encounter Visit Diagnoses Not on filedocumented in this encounter
--- OUTSIDE RECORDS SUMMARY | 2024-02-19 13:13 | XMS_ITS | Encounter Summary ---
Author Organization [facility] Address [address] [place] [address] Care Team Providers Care Fireman Name Role Phone Jesus Leyva MD Primary Care Provider [phone] Encounter Details Date Type Department Care Team (Late st Contact Info) Description 02/23/2015 Results Only [facility] [phone] Ashley Mathews MD [address] [place] [address] Social History Tobacco Use Types Packs/Day Years [...] ? ANNALISA MAHER ? Accession #: ? [id number] ? : ? 1980 (Age: 34) ??F [...] types 16,18,31,33,35, 39,45,51,52,56,58, 59,66, and 68 by head setter mediated amplification. Comments Document reviewed and electronically signed by: ? System Interface ? Report date: 03/03/2015 By the signature above, the attending physician certifies that he/she has personally conducted a gross and/or microscopic examination of the described specimens and rendered or confirmed the above diagnosis. End of Report [facility] 02/23/2015 02/24/2015 Ashley Mathews MD PATHOLOGY ORDERABLES [facility] [address] [place] [address] documented in this encounter Visit Diagnoses Not on filedocumented in this encounter Care Teams Fireman Relationship Specialty Start Date End Date Jesus Leyva MD [address] [place] [address] PCP - General 04/14/10 03/21/15 documented as of this encounter
--- OUTSIDE RECORDS SUMMARY | 2024-02-19 13:13 | XMS_ITS | Encounter Summary ---
Author Organization [facility] Address [facility] [place] [address] Care Team Providers Care Manager Developmental Name Role Phone Carol Randle APRN Primary Care Provider [phone] Reason for Visit * Reason Onset Date Comments Appointment 05/06/2023 Encounter Details Date Type Department Care Team (Late st Contact Info) Description 05/06/2023 Telephone [place] [phone] Nicolette Lucero Appointment Social History Tobacco Use [...] PM EST LVM and sent letter via [facility] portal about scheduling appointment(s), please schedule from [...] Minute Resistance Band Workout for Beginners (medium) https://www.Videojugube.com/watch?v=wUGqnpm83cd You should all have resistance bands from [...] holding the starting position of that movement. https://www.Videojugube.com/watch?v=A6oXQuPlHHB Seated Resistance Band Exercises https://www.Videojugube.com/watch?v=KSUoKByDckc Simple Yoga-based strength training https://www.Videojugube.com/watch?v=w5ejVPVZcJO Balance and Strength training on Stairs https://www.Videojugube.com/watch?v=gBTHlOQUCRo TRACK food intake Lifestyle No Alfreda Delgado MD Note: BAYRON such as Scovillepal or Lose it, or pen and paper. [...] filedocumented in this encounter Care Teams Manager Developmental Relationship Specialty Start Date End Date Carol Randle, MECHANIC PCP - General Family Medicine 03/26/22 documented as of this encounter
--- OUTSIDE RECORDS SUMMARY | 2024-02-19 13:13 | XMS_ITS | Encounter Summary ---
Author Organization [facility] Address [facility] [place] [address] Care Team Providers Care Salesforce Consultant Name Role Phone Carol Randle APRN Primary Care Provider [phone] Encounter Details Date Type Department Care Team [...] on filedocumented in this encounter Care Teams Salesforce Consultant Relationship Specialty Start Date End Date Carol Randle APRN PCP - General Family Medicine 03/26/22 documented as of this encounter
--- OUTSIDE RECORDS SUMMARY | 2024-02-19 13:13 | XMS_ITS | Encounter Summary ---
Author Organization Count Includes [facility] Address [facility] [place] [address] Care Team Providers Care Fruit Washer Name Role Phone Carol Randle APRN Primary Care Provider [phone] Encounter Details Date Type Department Care Team (Late st Contact Info) Description 01/10/2023 9:30 AM EDT Notes Only Weight and Wellness at [facility] [place] [phone] Karma Fleming Social History Tobacco Use Types [...] Minute Resistance Band Workout for Beginners (medium) https://www.Cardize.com/watch?v=oRAorqn80uz You should all have resistance bands from [...] practiceholding the starting position of that movement. https://www.thrdPlaceube.com/watch?v=Y6zJFuQtXYT Seated Resistance Band Exercises https://www.thrdPlaceube.com/watch?v=KSUoKByDckc Simple Yoga-based strength training https://www.thrdPlaceube.com/watch?v=p8ylDPNHsUD Balance and Strength training on Stairs https://www.thrdPlaceube.com/watch?v=gBTHlOQUCRo Go for a walk for 30 minutes [...] Minute Resistance Band Workout for Beginners (medium) https://www.thrdPlaceube.com/watch?v=dLDefpp66fe You should all have resistance bands from [...] holding the starting position of that movement. https://www.thrdPlaceube.com/watch?v=N2yERpDjYCM Seated Resistance Band Exercises https://www.thrdPlaceube.com/watch?v=KSUoKByDckc Simple Yoga-based strength training https://www.thrdPlaceube.com/watch?v=m8nzOAVSuGY Balance and Strength training on Stairs https://www.youtube.com/watch?v=gBTHlOQUCRo TRACK food intake Lifestyle No Alfreda Delgado MD Note: BAYRON such as myCubiclnesspal or Lose it, or pen and paper. [...] on filedocumented in this encounter Care Teams Fruit Washer Relationship Specialty Start Date End Date Carol Randle APRN PCP - General Family Medicine 03/26/22 documented as of this encounter
--- OUTSIDE RECORDS SUMMARY | 2024-02-19 13:13 | XMS_ITS | Encounter Summary ---
Author Organization [facility] Address [address] [place] [address] Care Team Providers Care Sales Marketing Coordinator Name Role Phone Unavailable Primary Care Provider Unavailabl e Encounter Details Date Type Department Care Team (Late st Contact Info) Description 02/29/2004 Results Only [facility] - Maple conversion [address] [place] [address] George, September, [facility] [address] [place] [phone] Social History Tobacco Use Types Packs/Day [...] ? ANNALISA MONROY ? Accession #: ? [id number] : ? 1980 (Age: 23) ??F ?Collect [...] Vazquez CN PATHOLOGY ORDERABLES Performing Organization Address City/State/[facility] Co de Phone Number GABBI HASSAN [address] [place] [address] documented in this encounter Visit Diagnoses Not on filedocumented in this encounter
--- OUTSIDE RECORDS SUMMARY | 2024-02-19 13:13 | XMS_ITS | Encounter Summary ---
[place] [address] Care Team Providers Care Pulper Operator Name Role Phone Carol Randle APRN Primary Care Provider [phone] Reason for Referral * Diagnostic Test (Routine) - Closed Specialty Diagnoses / Procedures Referred By Contac t Referred To Contact Radiology Diagnoses Abdominal cramping Procedures NM Functional Biliary Scan Thony Laguerre, DAVID [address] [place] [address] [place] [address] Referral ID Status Reason Start Date Expiration Date V isits Requested Visits Authorized [id number] Closed Specialty Service Requested 05/07/2022 11/05/2023 2 2 Reason for Visit * Consultation (Routine) - Closed Specialty Diagnoses / Procedures Referred By Contac t Referred To Contact Gastroenterology Diagnoses Fatty infiltration of liver fatty liver Carol Randle APRN [address] [place] [address] [facility] [address] [place] [address] Referral ID Status Reason Start Date Expiration Date V isits Requested Visits Authorized [id number] Closed Consult, Test & Treat 03/07/2022 03/07/2023 1 1 Encounter Details Date Type Department Care Team (Late st Contact Info) Description 05/07/2022 3:00 PM EST Office [place] [phone] Thony Laguerre PA [address] [place] [address] [place] [address] NAFLD (nonalcoholic fatty liver disease) (Primary Dx); [...] Maher Sex: female Date of : 1980 SIGNS SALES REPRESENTATIVE: Thony Laguerre PA-C PCP: Carol Randle APRN [...] severe heartburn for which she currently takes [id number] mg twice daily prescribed by her head chopper. She denies increased gas production or significant [...] Refill ??? fluticasone propionate (Flonase) 50 mcg/actuation [place], Suspension SPRAY TWO SPRAYS IN EACH NOSTRIL [...] Imaging: CT abdomen/pelvis w contrast 03/06/[address] [facility]: Fibroscan Results Today: Median kPa: 3.7 Mean [...] Laguerre PA-C Section of Gastroenterology [place] [address] Copy: JORDY [employer] documented in this encounter Procedure Notes * Thony Laguerre PA - 05/07/2022 3:00 PM ESTAssociated Order(s): FIBROSCAN Procedure(s): FIBROSCAN Pre-Procedure Diagnose(s): NAFLD (nonalcoholic fatty liver disease) [facility] Liver Fibrosis Assessment Report Indication: Fatty liver Performed by: DAVID Wilson Procedure: Vibration Controlled Transient Elastography (VCTE) or Fibroscan [place] Protocol: Patient's identity, procedure and site were [...] Procedure Name Priority Date/Time Associated Diagnosis Comments [id number] Routine 05/07/2022 3:00 PM EST NAFLD (nonalcoholic [...] questions please contact the health youth care worker that requested your imaging first. ? Electronically signed by: Esvin Dodd MD, [facility] ([phone]), at 05/24/2022 3:07 PM Narrative 05/24/2022 3:07 PM EST EXAMINATION: NM FUNCTIONAL BILIARY SCAN CLINICAL HISTORY: RUQ abdominal cramping, ultrasound/CT negative, r/o biliary dyskinesia TECHNIQUE: Technetium-99m mebrofenin was administered intravenously in a dose of 5.5 mCi. An image of the abdomen was obtained in the [place] projection 60 minutes later. A standard oral [...] of the abdomen was obtained in the [place] projection 60minutes later. A standard oral volume [...] have questions please contactthe health youth care worker that requested your imaging first. Electronically signed by: Esvin Dodd MD, [facility]([phone]), at 05/24/2022 3:07 PM Kayleen Black MD [facility] ORDERABLES * Hemoglobin A1c (05/07/2022 4:28 PM EST) [facility] Hemoglobin A1c 5.6 4.3 - 5.6 % [...] Mellitus, Diabetes Care 2013; 36: Suppl. 1, S67-02 Estimated Average Glucose 113 mg/dL [facility] [...] into estimated average glucose values. ??Diabetes Care 2008:31(8):0296-1887. Blood 05/07/2022 4:28 PM EST 05/07/2022 4:57 PM EST Narrative Resulting Agency Comment Spec In Lab Kayleen Black MD CHEMISTRY ORDERABLES [facility] [place] [address] * Lipid Panel (Reflex Direct LDL) (05/07/2022 4:28 PM EST) Pathologist [facility] Cholesterol, Total 218 mg/dL [facility] Comment: Lower Risk: <200 mg/dL Average Risk: 200-239 mg/dL Higher Risk: >bk=763 mg/dL Triglyceride 66 mg/dL [facility] Comment: Average Risk/Lower Risk: <150 mg/dL Borderline High Risk: 150-199 mg/dL High Risk: 200-499 mg/dL Very High Risk: >im=849 mg/dL HDL Cholesterol 74 mg/dL [facility] Comment: Males: ?? Higher Risk: <40 mg/dL Females: ?? Higher Risk: <50 mg/dL LDL Cholesterol 131 mg/dL [facility] Comment: Lowest Risk: <100 mg/dL Lower Risk: 100-129 mg/dL Borderline High Risk: 130-159 mg/dL High Risk: 160-189 mg/dL Very High Risk: >vq=910 mg/dL Cholesterol/HDL Ratio 2.9 ratio [facility] Lipid Interpretation See Note [facility] Comment: Lipid management should be guided by a patient? s ASCVD risk, goals and preferences. ACC/AHA Guidelines recommend high intensity statin if clinical ASCVD or LDL greater than or equal to 190 mg/dL. http://Wedge Busterurl.com/GIL-WCR-Tkuadraom Adults aged 40-75 with LDL 70-189 mg/dL should have their 10 year ASCVD risk estimated with the ACC/AHA ASCVD risk automatic print developer http://tools.acc.org/PWXEJ-Esgm-Orxppevsq/ Statin should be discussed if risk greater [...] Black MD CHEMISTRY ORDERABLES Performing Organization Address City/[facility]/ZIP Co de Phone Number [facility] [place] [address] * Ceruloplasmin (05/07/2022 4:28 PM EST) Ceruloplasmin 28.1 16.0 - 45.0 mg/dL [facility] Blood 05/07/2022 4:28 PM EST 05/07/2022 4:57 PM EST Narrative Resulting Agency Comment Spec In Lab Kayleen Black MD CHEMISTRY ORDERABLES Performing Organization Address City/[facility]/ZIP Co de Phone Number [facility] [place] [address] * Hepatic Function Panel (05/07/2022 4:28 PM [...] Black MD CHEMISTRY ORDERABLES [facility] [place] [address] * [id number] (05/07/2022 3:00 PM EST) Narrative Thony Laguerre PA - 05/07/2022 3:00 PM EST Thony Laguerre PA ? 05/07/2022 ??9:18 PM [facility] Liver Fibrosis Assessment Report Indication: ?? Fatty liver Performed by: ??DAVID Wilson Procedure: Vibration Controlled Transient Elastography (VCTE) or Fibroscan [place] Protocol: Patient's identity, procedure and site were [...] site documented in this encounter Care Teams Pulper Operator Relationship Specialty Start Date End Date Carol Randle APRN PCP - General Family Medicine 03/26/22 documented as of this encounter
--- OUTSIDE RECORDS SUMMARY | 2024-02-19 13:13 | XMS_ITS | Encounter Summary ---
Author Organization [facility] Address [facility] [place] [address] Care Team Providers Care Feather Trimmer Name Role Phone Carol Randle APRN Primary Care Provider [phone] Encounter Details Date Type Department Care Team (Late st Contact Info) Description 06/03/2022 Orders Only Weight and Wellness at [facility] [address] [place] [phone] Alfreda Delgado MD [facility] [place] [address] Social History Tobacco Use Types Packs/Day Years [...] Alfreda Delgado MD Note: BAYRON such as Releadpal or Lose it, or pen and paper. If using bayron or activity monitor, don't add in extra calories for the calories you burn. work on NOT getting out of bed to eat Lifestyle No Alfreda Delgado MD have protein-containin g breakfast Lifestyle No Alfreda Delgado MD documented as of this encounter Visit Diagnoses Not on filedocumented in this encounter Care Teams Feather Trimmer Relationship Specialty Start Date End Date Carol Randle APRN PCP - General Family Medicine 03/26/22 documented as of this encounter
--- OUTSIDE RECORDS SUMMARY | 2024-02-19 13:13 | XMS_ITS | Encounter Summary ---
Author Organization [facility] Address [address] [place] [address] Care Team Providers Care Faculty Instructor Name Role Phone Jesus Leyva MD Primary Care Provider [phone] Encounter Details Date Type Department Care Team (Latest Contact Info) Description 03/17/2015 14:40 EDT - 03/17/2015 23:59 EDT Hospital Encounter [address] [address] Unknown, Provider, Discharge Disposition: Home or Self Care Social History Tobacco Use Types Packs/Day Years Used Date Smoking Tobacco: Never Assessed Sex and Gender Information Value Date Recorded Sex Assigned at Not on file Gender Identity Not on file Sexual Orientation Not on file documented as of this encounter Discharge Disposition Disposition Code Departure Means Destination Home or Self Long Term documented in this encounter Plan of Treatment Not on file documented as of this encounter Visit Diagnoses Not on filedocumented in this encounter Care Teams Faculty Instructor Relationship Specialty Start Date End Date Jesus Leyva MD [address] [place] [address] PCP - General 04/14/10 03/21/15 documented as of this encounter
--- OUTSIDE RECORDS SUMMARY | 2024-02-19 13:13 | XMS_ITS | Encounter Summary ---
Author Organization [facility] Address [facility] [place] [address] Care Team Providers Care Wallpaper Remover Steam Name Role Phone Carol Randle APRN Primary Care Provider [phone] Reason for Visit * Reason Onset Date Comments Appointment 02/26/2023 Encounter Details Date Type Department Care Team (Late st Contact Info) Description 02/26/2023 Telephone [place] [address] Alfreda Dawkins MD [facility] [place] [address] Appointment Social History Tobacco Use Types Packs/Day [...] Minute Resistance Band Workout for Beginners (medium) https://www.Fertility Focusube.com/watch?v=gAKzmff54iw You should all have resistance bands from [...] holding the starting position of that movement. https://www.Fertility Focusube.com/watch?v=F1jAXkBhEIY Seated Resistance Band Exercises https://www.Fertility Focusube.com/watch?v=KSUoKByDckc Simple Yoga-based strength training https://www.Fertility Focusube.com/watch?v=f3ocGLLYsFG Balance and Strength training on Stairs https://www.Fertility Focusube.com/watch?v=gBTHlOQUCRo TRACK food intake Lifestyle No Alfreda Delgado MD Note: BAYRON such as Conversocialpal or Lose it, or pen and paper. [...] on filedocumented in this encounter Care Teams Wallpaper Remover Steam Relationship Specialty Start Date End Date Carol Randle, INTERNATIONAL RELATIONS TEACHER PCP - General Family Medicine 03/26/22 documented as of this encounter
--- OUTSIDE RECORDS SUMMARY | 2024-02-19 13:13 | XMS_ITS | Encounter Summary ---
Author Organization [facility] Address [address] [place] [address] Care Team Providers Care Box Car Bracer Name Role Phone Unavailable Primary Care Provider Unavailabl e Encounter Details Date Type Department Care Team (Late st Contact Info) Description 10/09/2002 Results Only [facility] - [place] [facility] [address] [place] [address] George, September, [facility] [address] [place] [phone] Social History Tobacco Use Types Packs/Day [...] ? ANNALISA MONROY ? Accession #: ? [id number] : ? 1980 (Age: 22) ??F ?Collect [...] George CNM PATHOLOGY ORDERABLES Performing Organization Address City/State/[facility] Co de Phone Number [facility] [address] [place] [address] documented in this encounter Visit Diagnoses Not on filedocumented in this encounter
--- OUTSIDE RECORDS SUMMARY | 2024-02-19 13:13 | XMS_ITS | Encounter Summary ---
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 TRACK food intake BAYRON such as XAwarepal or Lose it, or pen and paper. [...] turkey trot 5k walk on ; joined [employer] - walk 63 miles in April; [...] adult documented in this encounter Care Teams Street Sweeper Operator Relationship Specialty Start Date End Date Carol Randle APRN PCP - General Family Medicine 03/26/22 documented as of this encounter
--- OUTSIDE RECORDS SUMMARY | 2024-02-19 13:13 | XMS_ITS | Encounter Summary ---
Author Organization [facility] Address [address] [place] [address] Care Team Providers Care Patient Safety Officer Name Role Phone Unavailable Primary Care Provider Unavailabl e Encounter Details Date Type Department Care Team (Late st Contact Info) Description 01/02/2001 Results Only [facility] - [place] [address] [place] [address] Faby Read CNM Social History Tobacco Use [...] SEROL OGY ORDERABLES [facility] [address] [place] [address] * HEPATITIS B SURFACE ANTIGEN (01/02/2001 20:54 EDT) Hepatitis B Surface Ag Neg [facility] 01/02/2001 20:5 4 EDT 01/02/2001 20:54 EDT Faby Read CNM CHEMISTRY & BLOOD GA S ORDERABLES [facility] [address] [place] [address] documented in this encounter Visit Diagnoses Not on filedocumented in this encounter
--- OUTSIDE RECORDS SUMMARY | 2024-02-19 13:13 | XMS_ITS | Encounter Summary ---
Author Organization [facility] Address [facility] [place] [place] [address] Care Team Providers Care Propagation Worker Name Role Phone Carol aRndle APRN Primary Care Provider [phone] Reason for Visit * Consultation (Routine) - Closed Specialty Diagnoses / Procedures Referred By Contsagar t Referred To Contact Dermatology Diagnoses Skin lesion Rosanna Godinez MD [address] [place] [address] [facility] Dermatology [address] [place] [address] Referral ID Status Reason Start Date Expiration Date V isits Requested Visits Authorized [id number] Closed Consult, Test & Treat PCP Updated and/or Approved 08/21/2022 08/21/2023 12 12 Encounter Details Date Type Department Care Team (Late st Contact Info) Description 02/19/2023 3:40 PM EDT Office Visit Dermatology at [facility] [address] [place] [address] [facility] [address] [place] [address] Neoplasm of unspecified behavior of [...] follow up and FBSE []Note routed to sawmill moulder operator [x]Recall placed in scheduling system []Appointment scheduled at checkout Scribe attestation: Gregory Carcamo has performed the documentation for this encounter in the presence of and acting as a scribe for Jesus Garza MD. I performed the above scribed service and agree with the accuracy of the documentation in this encounter. Reviewed and signed by: Jesus Garza MD Dermatology [facility] Patient seen and evaluated with staff electronic equipment trades worker: Nita Wren MD Department of Dermatology [facility] * Nita Wren MD - 02/19/2023 3:40 [...] Minute Resistance Band Workout for Beginners (medium) https://www.Wochitube.com/watch?v=dTKiwpe21jc You should all have resistance bands from [...] holding the starting position of that movement. https://www.Wochitube.com/watch?v=Q7iFBlRaZKN Seated Resistance Band Exercises https://www.Wochitube.com/watch?v=KSUoKByDckc Simple Yoga-based strength training https://www.Wochitube.com/watch?v=w0kfVGMPsHO Balance and Strength training on Stairs https://www.Wochitube.com/watch?v=gBTHlOQUCRo TRACK food intake Lifestyle No Alfreda Delgado MD Note: BAYRON such as TechPepperpal or Lose it, or pen and paper. [...] inflamed documented in this encounter Care Teams Propagation Worker Relationship Specialty Start Date End Date Carol Randle, JORDY PCP - General Family Medicine 03/26/22 documented as of this encounter
--- OUTSIDE RECORDS SUMMARY | 2024-02-19 13:13 | XMS_ITS | Encounter Summary ---
Author Organization [facility] Address [address] [place] [address] Care Team Providers Care Fugitive Detective Name Role Phone Unavailable Primary Care Provider Unavailabl e Encounter Details Date Type Department Care Team (Late st Contact Info) Description 09/16/2001 Results Only [facility] - [place] [address] [place] [address] Richard Wood CNM Social History Tobacco Use [...] ? ANNALISA MONROY ? Accession #: ? [id number] : ? 1980 (Age: 21) ??F ?Collect Date: ? 09/16/2001 Location: ? [facility] ? Receive Date: ? 09/18/2001 Provider: ?RICHARD WOOD CNM Copy to: ? Specimen/Source: ?ThinPrep Pap Test, Vagina/Cervix Last Menstrual Period: ? 08/21/01 Menstrual/Pregnanc y Status: ? Post Other: ? Client ID#: [id number] ? SPECIMEN ADEQUACY ? Satisfactory for Evaluation - transformation zone component present GENERAL CATEGORIZATION ? Epithelial Cell Abnormality INTERPRETATION ? Squamous Cell Abnormality - Atypical squamous cells, undetermined significance. EDUCATIONAL NOTES/RECOMMENDATI ONS ? Recommend clinical correlation and further evaluation, as clinically indicated. ? Document reviewed and electronically signed by: ? FRANKLIN FRANKS MD [facility] ? Report Date: ??09/25/2001 16:15 End of Report [facility] 09/16/2001 09/18/2001 Richard Wood CNGriffin PATHOLOGY ORDERABLES Performing Organization Address City/State/[facility] Co de Phone Number [facility] [address] [place] [address] documented in this encounter Visit Diagnoses Not on filedocumented in this encounter
--- OUTSIDE RECORDS SUMMARY | 2024-02-19 13:13 | XMS_ITS | Encounter Summary ---
Author Organization [facility] Address [address] [place] [address] Care Team Providers Care Manager Account Management Name Role Phone Hung Willis MD Primary Care Provider Unav ailable Encounter Details Date Type Department Care Team (Late st Contact Info) Description 07/17/2021 Lab Requisition [facility] Pathology & Laboratory Medicine - [address] [address] Outr Resulting Lab, Provider Social History Tobacco [...] Outr Resulting Lab MICROBIOLOGY - GENERAL ORDERABLES [facility] [address] [place] [address] * COVID-19 TESTING (07/17/2021 9:40 EST) COVID-19 rt-PCR Result Negative Negative 07/18/2021 10:43 EST [facility] Comment: This test has not [...] was performed using the andrea SARS-CoV-2 assay ([employer] on the Andrea 6800 System Performing Lab Andrea [address] [facility] Lab 07/18/2021 10:43 EST [facility] Swab 07/17/2021 9:40 EST 07/17/2021 16:58 EST Provider Outr Resulting Lab MICROBIOLOGY - GENERAL ORDERABLES Performing Organization Address City/State/[facility] Co de Phone Number [facility] [address] [place] [address] documented in this encounter Visit Diagnoses Not on filedocumented in this encounter Care Teams Manager Account Management Relationship Specialty Start Date End Date Hung Willis MD PCP - General 03/22/15 documented as of this encounter
--- OUTSIDE RECORDS SUMMARY | 2024-02-19 13:13 | XMS_ITS | Encounter Summary ---
Author Organization [facility] Address [address] [place] [address] Care Team Providers Care Textile Conservator Name Role Phone Jesus Leyva MD Primary Care Provider [phone] Encounter Details Date Type Department Care Team (Late st Contact Info) Description 04/13/2010 Results Only [facility] Laboratory Services - [facility] ([facility] [address] [place] [address] Helen Harmon MD [address] [place] [phone] Social History Tobacco Use Types Packs/Day Years [...] GIO, ANNALISA M ? Accession #: ? [id number] ? : ? 1980 (Age: 29) ??F [...] entirely submitted as (A1) through (A4). (Junior Delgado)/[facility] ? End of Report ? [facility] 04/13/2010 04/13/2010 12: 15 EDT Helen Harmon MD PATHOLOGY ORDERABLE S [facility] [address] [place] [address] documented in this encounter Visit Diagnoses Not on filedocumented in this encounter Care Teams Textile Conservator Relationship Specialty Start Date End Date Jesus Leyva MD [address] [place] [address] PCP - General 04/14/10 03/21/15 documented as of this encounter
--- OUTSIDE RECORDS SUMMARY | 2024-02-19 13:13 | XMS_ITS | Encounter Summary ---
Author Organization [facility] Address [facility] [place] [address] Care Team Providers Care Garbage Man Name Role Phone Carol Randle APRN Primary Care Provider [phone] Encounter Details Date Type Department Care Team (Latest Contact Info) Description 10/18/2022 10:00 AM EDT TH Visit (TeleHealth) Weight [place] [phone] Alfreda Delgado MD [facility] [address] [place] [address] Class 1 obesity with serious comorbidity and [...] Delgado MD - 10/18/2022 10:00 AM EDT [facility] Living [facility] Visit ( ) IN CLINIC ( xx) video visit ( ) phone visit Patient Name: Milagros Maher Date of : 1980 Age: 42 y.o. Carol Randle APRN is PCP. Thank you for referring Milagros Maher to the [facility] for consultation regarding obesity. CHIEF COMPLAINT: Follow-up for Obesity Pathway:obesity medicine INTERVAL HISTORY / PROGRESS TOWARD GOALS: [x] I reviewed past / interim records including notes and labs. This is a folllow up [facility] visit for this 42 y.o. y.o. [...] ordered labs to be done fasting in [facility]. NOT anxious to take anti-obesity medication. Cancelled visit with me in August, was sick. ?? Last dietitian visit: (reviewed): [place] 08/21/2022. Last visit with health assistant women's basketball coach Bertin Bobo: 08/06/2021. Referrals done other than dietitian and health assistant women's basketball coach: ( ) [facility] emotional eating group [...] 208 at home. Labs: Says did at [facility], she got results , thinks were [...] ??? TRACK food intake BAYRON such as [employer] or Lose it, or pen and paper. [...] today: Non. I will request results from [facility] I spent 30 minutes in care of [...] Alfreda Delgado MD Note: BAYRON such as Informouspal or Lose it, or pen and paper. [...] type documented in this encounter Care Teams Garbage Man Relationship Specialty Start Date End Date Carol Randle APRN PCP - General Family Medicine 03/26/22 documented as of this encounter
--- OUTSIDE RECORDS SUMMARY | 2024-02-19 13:13 | XMS_ITS | Encounter Summary ---
Author Organization [facility] Address [facility] [place] [address] Care Team Providers Care Vascular Technologist Sonographer Name Role Phone Carol Randle APRN Primary Care Provider [phone] Encounter Details Date Type Department Care Team [...] on filedocumented in this encounter Care Teams Vascular Technologist Sonographer Relationship Specialty Start Date End Date Carol Randle APRN PCP - General Family Medicine 03/26/22 documented as of this encounter
--- OUTSIDE RECORDS SUMMARY | 2024-02-19 13:13 | XMS_ITS | Encounter Summary ---
[place] [address] Care Team Providers Care Medical Anthropologist Name Role Phone Carol Randle APRN Primary Care Provider [phone] Reason for Referral * Diagnostic Test (Routine) - Closed Specialty Diagnoses / Procedures Referred By Contac t Referred To Contact Radiology Diagnoses Abdominal cramping Procedures NM Functional Biliary Scan Thony Laguerre PA [address] [place] [address] [place] [address] Referral ID Status Reason Start Date Expiration Date V isits Requested Visits Authorized [id number] Closed Specialty Service Requested 05/07/2022 11/05/2023 2 2 Reason for Visit * Diagnostic Test (Routine) - Closed Specialty Diagnoses / Procedures Referred By Contac t Referred To Contact Radiology Diagnoses Abdominal cramping Procedures NM Functional Biliary Scan Thony Laguerre PA [address] [place] [address] [place] [address] Referral ID Status Reason Start Date Expiration Date V isits Requested Visits Authorized [id number] Closed Specialty Service Requested 05/07/2022 11/05/2023 2 2 Encounter Details Date Type Department Care Team (Latest Contact Info) Description 05/24/2022 12:04 PM EST - 05/24/2022 12:05 PM EST Hospital Encounter [place] [address] Kayleen Black MD [facility] [place] [address] Abdominal cramping Discharge Disposition: Home Social History [...] End Date fluticasone propionate (Flonase) 50 mcg/actuation [place], Suspension SPRAY TWO SPRAYS IN EACH NOSTRIL [...] Alfreda Delgado MD Note: BAYRON such as Genprex or Poken it, or pen and paper. If using [...] who have questions please contact the health occasional caregiver that requested your imaging first. ? Electronically signed by: Esvin Dodd MD, [facility] ([phone]), at 05/24/2022 3:07 PM Narrative 05/24/2022 3:07 PM EST EXAMINATION: PR FUNCTIONAL BILIARY SCAN CLINICAL HISTORY: RUQ abdominal cramping, ultrasound/CT negative, r/o biliary dyskinesia TECHNIQUE: Technetium-99m mebrofenin was administered intravenously in a dose of 5.5 mCi. An image of the abdomen was obtained in the SPANISH projection 60 minutes later. A standard oral [...] of the abdomen was obtained in the SPANISH projection 60minutes later. A standard oral volume [...] patients who have questions please contactthe health occasional caregiver that requested your imaging first. Electronically signed by: Esvin Dodd MD, [facility]([phone]), at 05/24/2022 3:07 PM Kayleen Black MD [facility] ORDERABLES documented in this encounter Visit Diagnoses [...] Arm documented in this encounter Care Teams Medical Anthropologist Relationship Specialty Start Date End Date Carol Randle, JORDY PCP - General Family Medicine 03/26/22 documented as of this encounter
--- OUTSIDE RECORDS SUMMARY | 2024-02-19 13:13 | XMS_ITS | Encounter Summary ---
Author Organization [facility] Address [facility] [place] [address] Care Team Providers Care Meter Reader Name Role Phone Carol Randle APRN Primary Care Provider [phone] Reason for Visit * Consultation (Routine) - Closed Specialty Diagnoses / Procedures Referred By Contsagar t Referred To Contact Weight and Wellness Diagnoses Prediabetes Fatty infiltration of liver Carol Randle APRN [address] [place] [address] [facility] [address] [place] [address] Referral ID Status Reason Start Date Expiration Date V isits Requested Visits Authorized [id number] Closed Consult, Test & Treat PCP Updated and/or Approved 03/26/2022 03/26/2023 1 1 Encounter Details Date Type Department Care Team (Latest Contact Info) Description 05/23/2022 9:30 AM EST TH Visit (TeleHealth) Weight and Wellness at [facility] [address] [place] [id number] Alfreda Delgado MD [facility] [place] [address] Class 1 obesity with serious comorbidity and [...] up visits were not scheduled , the front office secretary should be calling you to schedule dietitian and health baseball coach visits and follow up with me. Please call us if you don't hear from us in a week. Please plan to be seen regularly at [facility] and stick with the program. Losing weight and keeping it off is not easy!! In general, patients who have more contact with [facility] (appointments with me, the dietitian and health baseball coach, and participation in groups and classes) [...] by one of our health coaches or heat plant specialist. LiveSmarter - focuses on making behavior changes through mindful living, presented by one of our health coaches You can choose to participate in one block or all three, but we ask that you attend only one block at a time. If you are interested in scheduling yourself for one of the 6 week Healthy Lifestyle blocks, ghassanlizbeth ([phone]). We also offer a group called the [...] breakfast TRACK food intake BAYRON such as Chatositypal or Lose it, or pen and paper. [...] tracking bayron on your smart phone (like MyRevolver IncPal or Lose It). Don't add in extra [...] day should contain protein such as eggs, british virgin islander yogurt or other proteinsource, moderate amount of [...] have questions or concerns please send a [employer] App[employer] message or call the office at [phone]. You can also send messages to the health baseball coach, dietitian and nurse. I work at [employer] part-time. All messages go to our nurse first. If you send a message about a medication which I am prescribing, be sure to specify exactly which medication you are referring to and the exact dose that you are taking and how often, and which pharmacy you want to use. Please allow at least 3-5 business days for a medication refill. [employer] messages are not monitored after hours, on weekends or holidays. For help with ZOOM visits: [phone]. For help with [employer] App[employer] system or to sign up: [phone]. Forquestions about what your insurance will cover or financial issues related to your care: [phone] or call your insurance carrier. I try very hard to stay on time during office visits. Please arrive 20 minutes before your appointment time so that medication review and vital signs can be done by the chief medical technologist and we can start our visit right at the appointment time. For video visits, please sign on at least 5 minutes before the visit time. LIFESTYLE ISSUES WE FOCUS ON, as discussed at first visit: food choices, food timing, movement, sleep, stress management, as well as medications. If labs have been ordered,Please send me a [employer] message or call if you don't get the lab results within 2 weeks after having the labs done. Tung Navarrete blood drawing station hours: M- 9-3. [facility], 3L: 6:45 AM -6 PM Saturday-Saturday. Saturday-12. References which you may want to read or listen to: (most are available on Audible-you can sometimes get a free trial; most of the books are available used on BlockAvenue for a very low lopez). Anxiety and depression The Happiness Trap by Anthony Sanchez (really about dealing with anxiety and depression and worry, very readable). The Mindfulness and acceptance workbook for anxiety By David Gamboa. Emotional eating: End Emotional Eating by Jodee Reed ( available used on BlockAvenue for very low lopez, available on TapMe). Good for anyone, emotional eater or not! HIGHLY RECOMMENDED. Calming the Emotional Storm Federica Kaleb Montanosarabjit Mindful eating: Eating Mindfully: how to end mindless eating and enjoy a balanced relationship with food by Desriee Kent Www.the centerformindfuleating.org Self -monitoring/motivation: The Willpower [...] Alicia Willams & Chepe Eagle For smokers: 9-121-AYXY-NOW. [facility] tobacco cessation program: [phone]. Quitsure Bayron. Please see further sources of [...] Medicine Specialists. Qsymia is FDA approved for terminal gauger use. Regarding phentermine alone: This medication should [...] are not aware of today, especially with usp use which is usually required for weight [...] the same way that they help diabetics. https://www.diabeteseducator.org/practice/practice-tools/dvrlxqtu-hudsvruxer-kzv ls/fxd-7-htfztjfdo https://www.diabeteseducator.org/docs/default-source/practice/educator-tools/glp -1-medications/understanding_glp_final.pdf?sfvrsn=2 The following informational sheet will provide instruction for how to store and inject the injectable forms of GLP1 Ismael. Please consult with your pharmacist about further questions about storage and travel. https://www.diabeteseducator.org/practice/practice-tools/ofkejmkb-pncitjiakz-ces ls/oew-7-pgilupllp Liraglutide (Victoza, Saxenda) Liraglutide is a medication [...] [facility] [address] [facility] [address] ( ) in-clinic visit (xx )telehealth video [...] again for allowing the Weight and Wellness Butler to join Milagros's healthcare team. SUMMARY OF VISIT AND ASSESSMENT: Milagros Maher presents to the [facility] for a consultative visit regarding obesity management. [...] requested: [ x] dietitian [ x] health baseball coach [ x] RTC me 4-6 weeks [ ] ACT emotional eating group x[ ] discuss ACT further next visit [ ] sleep clinic [ ] HLP (healthy lifestyles program)[x ] discuss HLP further next visit. Goals set with patient today: Goals ??? have protein-containing breakfast ??? Other (Enter personal goal) ??? TRACK food intake BAYRON such as Chatositypal or Lose it, or pen and paper. [...] modifications of obesity and co-morbid conditions at [facility]. Reason for [facility] appointment/ BIG WHY? Past year has been crazy. Had a sleep study. Her oxygen was dropping to 80%. Was started on oxygen at night. On 2 liters. methacholine challengesent her into monthlong asthma attack. Had been working at [employer]. Had CAT scan to rule out blood [...] top 3 reasons they identify: As above. [facility] Importance 05/22/2022 How important is it to you to make a change to improve your health? 10 - Very Important How confident are you that you can make a change to improve your health? 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 Barriers and challenges to success: As above. And coming into winter. Lives in [facility]. Has been walking outside. Food Behaviors ( [...] and followed for [facility]. Sleep clinic in [facility]. 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 No Tolerance: she can climb a flight of stairs What doing now? Average week now: Walking 3 to 4 times per week, 2 to 5 miles. Doing strength training? Had done at , tore a calf muscle. 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 [facility]: PAVS 05/22/2022 How many days during the [...] leg swelling. At times , not concerning. HAND SOLE SEWER: contraception: ( ) regular menses ( ) [...] being treated by psychiatrist: no Therapist: yes. [facility] PHQ-2 05/22/2022 Over the LAST 2 WEEKS, [...] grandfather. Social History: Work: Past worked at [employer], currently not working, has gone back to college this semester. 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 They indicated that they [...] found for: FERRITIN No results found for: ASEUFOLU56 No results found for: 25OHVITD ? Obesity [...] ?? Obesity is a chronic disease requiring usp management. ?? I discussed how the body [...] Goal would be to reduce VFA over-time. [facility] Initial Responses 05/22/2022 URICA - Readiness Score 11.33 WEL-SF Total Scores 61 PHQ-2 SubScore 0 (Brief screen negative) GAD2 Subscore 0 (Brief screen negative) PROMIS 10 Physical Scores 42.3 PROMIS 10 Mental Scores 50.8 Total REAP-S Scores 31 TFEQ - Uncontrolled Eating (UE) 14.81 TFEQ-Cognitive Restraint (CR) 100 TFEQ-Emotional Eating 22.22 Food Insecurity Score 4 Comins Category I Result 0 (Negative) Comins Category II Result 1 (Negative) Comins Category III 1 (Positive) Comins Sleep Apnea Total 2 (High Risk) Schooling [...] Alfreda Delgado MD Note: BAYRON such as Chatositypal or Lose it, or pen and paper. [...] Primary documented in this encounter Care Teams Meter Reader Relationship Specialty Start Date End Date Carol Randle APRN PCP - General Family Medicine 03/26/22 documented as of this encounter
--- OUTSIDE RECORDS SUMMARY | 2024-02-19 13:13 | XMS_ITS | Encounter Summary ---
Author Organization [facility] [place] [address] Care Team Providers Care Sales Consulting Director Name Role Phone Carol Randle APRN Primary Care Provider [phone] Encounter Details Date Type Department Care Team (Late st Contact Info) Description 06/05/2022 9:00 AM EST Notes Only Weight and Wellness at [facility] [address] [place] [id number] Bertin Bobo Social History Tobacco Use Types [...] after foods Future follow-up with health assistant men's lacrosse coach will address identified areas of concern: [...] mindfulness throughout the day. Your health assistant men's lacrosse coach is well-equipped to guide you to find something to look forward to everyday. Eating behaviors: many people benefit from restricting the hours in which they eat. You can choose an eating window of 8-12 hours to start. Make a pact with yourself that you will not take in anything with caloric content outside this window. Your computer programming manager may make further recommendations documented in this encounter Plan of Treatment Not on file documented as of this encounter Goals Goal Patient Goal Type Associated Problems Recent Progress Patient-Stated? Author TRACK food intake Lifestyle No Alfreda Delgado MD Note: BAYRON such as Drimmipal or Lose it, or pen and paper. [...] filedocumented in this encounter Care Teams Sales Consulting Director Relationship Specialty Start Date End Date Carol Randle APRN PCP - General Family Medicine 03/26/22 documented as of this encounter
--- OUTSIDE RECORDS SUMMARY | 2024-02-19 13:13 | XMS_ITS | Encounter Summary ---
Author Organization [facility] [place] [address] Care Team Providers Care Protein Scientist Name Role Phone Carol Randle APRN Primary Care Provider [phone] Encounter Details Date Type Department Care Team (Late st Contact Info) Description 01/01/2023 11:00 AM EDT TH Visit (TeleHealth) Weight [place] [address] [facility] [place] [address] Adult BMI 33.0-33.9 kg/sq m Social History [...] adult documented in this encounter Care Teams Protein Scientist Relationship Specialty Start Date End Date Carol Randle APRN PCP - General Family Medicine 03/26/22 documented as of this encounter
--- OUTSIDE RECORDS SUMMARY | 2024-02-19 13:13 | XMS_ITS | Encounter Summary ---
Author Organization [facility] Address [facility] [place] [address] Care Team Providers Care Cleaner And Preparer Name Role Phone Carol Randle APRN Primary Care Provider [phone] Encounter Details Date Type Department Care Team [...] Alfreda Delgado MD Note: BAYRON such as Pipedrivepal or Lose it, or pen and paper. If using bayron or activity monitor, don't add in extra calories for the calories you burn. work on NOT getting out of bed to eat Lifestyle No Alfreda Delgado MD have protein-containin g breakfast Lifestyle No Alfreda Delgado MD documented as of this encounter Visit Diagnoses Not on filedocumented in this encounter Care Teams Cleaner And Preparer Relationship Specialty Start Date End Date Carol Randle APRN PCP - General Family Medicine 03/26/22 documented as of this encounter
--- OUTSIDE RECORDS SUMMARY | 2024-02-19 13:13 | XMS_ITS | Encounter Summary ---
Author Organization [facility] Address [address] [place] [address] Care Team Providers Care Rope Twisting Machine Operator Name Role Phone Jesus Leyva MD Primary Care Provider [phone] Encounter Details Date Type Department Care Team (Late st Contact Info) Description 10/06/2010 Results Only [facility] [phone] Deepa Aparicio, SHEET METAL WORKER HELPER [address] [place], [place] [id number] Social History Tobacco Use Types Packs/Day Years [...] ? ANNALISA MAHER ? Accession #: ? [id number] ? : ? 1980 (Age: 30) ??F ?Collect Date: ? 10/06/2010 ? Location: ? [facility] ? Receive Date: ? 10/09/2010 ? Provider: ?DEEPA APARICIO SHEET METAL WORKER HELPER ? Copy to: ? Specimen/Source: ?Pap Test, [...] [facility] 10/06/2010 10/09/2010 Deepa Aparicio SHEET METAL WORKER HELPER PATHOLOGY ORDERAB LES Performing Organization Address City/State/[facility] Co de Phone Number [facility] [address] [place] [address] documented in this encounter Visit Diagnoses Not on filedocumented in this encounter Care Teams Rope Twisting Machine Operator Relationship Specialty Start Date End Date Jesus Leyva MD [address] [place] [address] PCP - General 04/14/10 03/21/15 documented as of this encounter
--- OUTSIDE RECORDS SUMMARY | 2024-02-19 13:13 | XMS_ITS | Encounter Summary ---
Author Organization [facility] [place] [address] Care Team Providers Care Asset Management Lead Name Role Phone Carol Randle APRN Primary Care Provider [phone] Reason for Referral * Consultation (Routine) - Closed Specialty Diagnoses / Procedures Referred By Contac t Referred To Contact Dermatology Diagnoses Skin lesion Rosanna Godinez MD [address] [place] [address] [facility] Dermatology [address] [place] [address] Referral ID Status Reason Start Date Expiration Date V isits Requested Visits Authorized [id number] Closed Consult, Test & Treat PCP Updated and/or Approved 08/21/2022 08/21/2023 12 12 Encounter Details Date Type Department Care Team (Late st Contact Info) Description 08/21/2022 Transcribe Orders eDH Incoming Referrals [phone] Rosanna Godinez MD [address] [place], [place] [id number] Skin lesion Social History Tobacco Use Types [...] Alfreda Delgado MD Note: BAYRON such as Startupxplorepal or Lose it, or pen and paper. [...] tissue documented in this encounter Care Teams Asset Management Lead Relationship Specialty Start Date End Date Carol Randle APRN PCP - General Family Medicine 03/26/22 documented as of this encounter
--- OUTSIDE RECORDS SUMMARY | 2024-02-19 13:13 | XMS_ITS | Encounter Summary ---
Author Organization [facility] [place] [address] Care Team Providers Care Sand Miller Name Role Phone Carol Randle APRN Primary Care Provider [phone] Reason for Referral * Consultation (Routine) - Closed Specialty Diagnoses / Procedures Referred By Contac t Referred To Contact General Surgery Diagnoses Dysfunctional gallbladder Thony Laguerre PA [address] [place] [address] [facility] Gen Surgery [address] [place] [address] Referral ID Status Reason Start Date Expiration Date V isits Requested Visits Authorized [id number] Closed Consult, Test & Treat 05/27/2022 05/27/2023 1 1 Encounter Details Date Type Department Care Team (Late st Contact Info) Description 05/27/2022 Orders [place] [address] Thony Laguerre PA [address] [place] [address] Dysfunctional gallbladder Social History Tobacco [...] Alfreda Delgado MD Note: BAYRON such as StreamLink Software or Silenseed it, or pen and paper. If using bayron or activity monitor, don't add in extra calories for the calories you burn. work on NOT getting out of bed to eat Lifestyle No Alfreda Delgado MD have protein-containin g breakfast Lifestyle No Alfreda Delgado MD documented as of this encounter Visit Diagnoses Diagnosis Dysfunctional gallbladder documented in this encounter Care Teams Sand Miller Relationship Specialty Start Date End Date Carol Randle APRN PCP - General Family Medicine 03/26/22 documented as of this encounter
--- OUTSIDE RECORDS SUMMARY | 2024-02-19 13:13 | XMS_ITS | Encounter Summary ---
Author Organization [facility] Address [address] [place] [address] Care Team Providers Care Lepidopterist Name Role Phone Hung Willis MD Primary Care Provider Unav ailable Encounter Details Date Type Department Care Team (Late st Contact Info) Description 07/26/2020 Lab Requisition [facility] Pathology & Laboratory Medicine - [address] [id number] Outr Resulting Lab, Provider Social History Tobacco [...] Outr Resulting Lab MICROBIOLOGY - GENERAL ORDERABLES [facility] [address] [place] [address] * COVID-19 TESTING (07/25/2020 17:00 EST) COVID-19 rt-PCR Result Negative Negative 07/27/2020 12:38 EST [facility] Comment: This test has [...] was performed using the andrea SARS-CoV-2 assay ([employer] on the Andrea 6800 System Performing Lab Andrea [address] [facility] Lab 07/27/2020 12:38 EST [facility] Swab 07/25/2020 17:0 0 EST 07/26/2020 15:59 EST Provider Outr Resulting Lab MICROBIOLOGY - GENERAL ORDERABLES Performing Organization Address City/State/[facility] Co de Phone Number [facility] [address] [place] [address] documented in this encounter Visit Diagnoses Not on filedocumented in this encounter Care Teams Lepidopterist Relationship Specialty Start Date End Date Hung Willis MD PCP - General 03/22/15 documented as of this encounter
--- OUTSIDE RECORDS SUMMARY | 2024-02-19 13:13 | XMS_ITS | Encounter Summary ---
Author Organization [facility] [place] [address] Care Team Providers Care Customer Service Sales Associate Name Role Phone Carol Randle APRN Primary Care Provider [phone] Encounter Details Date Type Department Care Team [...] Minute Resistance Band Workout for Beginners (medium) https://www.youCheckPhone Technologiesube.com/watch?v=vHVcumh61qq You should all have resistance bands from [...] holding the starting position of that movement. https://www.youtube.com/watch?v=T5eEQwTnSUQ Seated Resistance Band Exercises https://www.youtube.com/watch?v=KSUoKByDckc Simple Yoga-based strength training https://www.youtube.com/watch?v=x0ngHMTUsEU Balance and Strength training on Stairs https://www.youtube.com/watch?v=gBTHlOQUCRo TRACK food intake Lifestyle No Alfreda Delgado MD Note: BAYRON such as Right90pal or Lose it, or pen and paper. [...] on filedocumented in this encounter Care Teams Customer Service Sales Associate Relationship Specialty Start Date End Date Carol Randle APRN PCP - General Family Medicine 03/26/22 documented as of this encounter
--- OUTSIDE RECORDS SUMMARY | 2024-02-19 13:13 | XMS_ITS | Clinical Summary ---
Author Organization [facility] Address [facility] [place] [address] Care Team Providers Care Boat Outfitter Name Role Phone Carol Randle APRN Primary Care Provider [phone] Allergies Active Allergy Reactions Criticality Noted Date Comments Adhesive Tape Rash 07/19/2019 Bupropion Anxiety 07/19/2019 Medications Medication Sig Dispensed Refills Start Date End Date Status fluticasone propionate (Flonase) 50 mcg/actuation S [place], Suspension SPRAY TWO SPRAYS IN EACH NOSTRIL [...] Minute Resistance Band Workout for Beginners (medium) https://www.Pageflakesube.com/watch?v=nGXzzkc24cz You should all have resistance bands from [...] holding the starting position of that movement. https://www.Pageflakesube.com/watch?v=K0yOJfCfMSD Seated Resistance Band Exercises https://www.Pageflakesube.com/watch?v=KSUoKByDckc Simple Yoga-based strength training https://www.Pageflakesube.com/watch?v=i2vcCVFUiQO Balance and Strength training on Stairs https://www.Pageflakesube.com/watch?v=gBRehabilitation Hospital of Indianao TRACK food intake Lifestyle No Alfreda Delgado MD Note: BAYRON such as WeVideo.Itpal or Lose it, or pen and paper. [...] Hemoglobin A1c 5.6 4.3 - 5.6 % [facility] Comment: Reference Range: 4.3 - [...] Mellitus, Diabetes Care 2013; 36: Suppl. 1, Y61-28 Estimated Average Glucose 113 mg/dL [facility] Comment: eAG equivalents for HbA1c [...] into estimated average glucose values. ??Diabetes Care 2008:31(8):5793-0498. Blood 05/07/2022 4:28 PM EST 05/07/2022 4:57 PM EST Narrative Resulting Agency Comment Spec In Lab Kayleen Black MD CHEMISTRY ORDERABLES [facility] [place] [place] [address] * Lipid Panel (Reflex Direct LDL) (05/07/2022 4:28 PM EST) Cholesterol, Total 218 mg/dL [facility] Comment: Lower Risk: <200 mg/dL Average Risk: 200-239 mg/dL Higher Risk: >ef=333 mg/dL Triglyceride 66 mg/dL [facility] Comment: Average Risk/Lower Risk: <150 mg/dL Borderline High Risk: 150-199 mg/dL High Risk: 200-499 mg/dL Very High Risk: >lc=937 mg/dL HDL Cholesterol 74 mg/dL [facility] Comment: Males: ?? Higher Risk: <40 mg/dL Females: ?? Higher Risk: <50 mg/dL LDL Cholesterol 131 mg/dL [facility] Comment: Lowest Risk: <100 mg/dL Lower Risk: 100-129 mg/dL Borderline High Risk: 130-159 mg/dL High Risk: 160-189 mg/dL Very High Risk: >je=850 mg/dL Cholesterol/HDL Ratio 2.9 ratio [facility] Lipid Interpretation See Note [facility] Comment: Lipid management should be guided by a patient? s ASCVD risk, goals and preferences. ACC/AHA Guidelines recommend high intensity statin if clinical ASCVD or LDL greater than or equal to 190 mg/dL. http://Cenzic.com/QFU-LBO-Anaiihoeu Adults aged 40-75 with LDL 70-189 mg/dL should have their 10 year ASCVD risk estimated with the ACC/AHA ASCVD risk railroad police http://tools.acc.org/EZLWJ-Dpvg-Nkdushpcq/ Statin should be discussed if risk greater [...] In Lab Kayleen Black MD CHEMISTRY ORDERABLES [facility] [place] [address] [place] [address] from Last 3 Months or Most Recently [...] capacity to make decision: Yes Care Teams Boat Outfitter Relationship Specialty Start Date End Date Carol Randle, JORDY PCP - General Family Medicine 03/26/22
--- OUTSIDE RECORDS SUMMARY | 2024-02-19 13:13 | XMS_ITS | Encounter Summary ---
Author Organization [facility] Address [address] [place] [address] Care Team Providers Care Mlt Name Role Phone Jesus Leyva MD Primary Care Provider [phone] Encounter Details Date Type Department Care Team (Late st Contact Info) Description 03/17/2015 Results Only [facility] [phone] Ashley Mathews MD [address] [place] [address] Social History Tobacco Use Types Packs/Day Years [...] ? ANNALISA MAHER ? Accession #: ? [id number] ? : ? 1980 (Age: 34) ??F ? Collect Date: ? 03/17/2015 ? Location: ? [facility] ? Receive Date: ? 03/18/2015 ? Provider: ASHLEY MATHEWS MD Copy to: BETO CHOW MD ? Final Pathologic Diagnosis: ENDOMETRIUM, CURETTAGE: - Proliferative endometrium with extensive stromal breakdown. See comment. - Benign fragments of squamous mucosa. - No cytologic atypia. Comment: Invas Tech slides of this case were reviewed at [...] 2. 03/18/2015 1:03 PM End of Report [facility] 03/17/2015 9:10 EDT 03/18/2015 9:10 EDT Ashley Mathews MD PATHOLOGY ORDERABLES [facility] [address] [place] [address] documented in this encounter Visit Diagnoses Not on filedocumented in this encounter Care Teams Mlt Relationship Specialty Start Date End Date Jesus Leyva MD [address] [place] [address] PCP - General 04/14/10 03/21/15 documented as of this encounter
--- OUTSIDE RECORDS SUMMARY | 2024-02-19 13:13 | XMS_ITS | Encounter Summary ---
Author Organization [facility] Address [address] [place] [address] Care Team Providers Care Outside Plant Field Engineer Name Role Phone Unavailable Primary Care Provider Unavailabl e Encounter Details Date Type Department Care Team (Late st Contact Info) Description 02/04/2002 Results Only [facility] [address] [place] [address] Richard Read CNM Social History Tobacco Use [...] ? ANNALISA MONROY ? Accession #: ? [id number] : ? 1980 (Age: 21) ??F ?Collect [...] cells, undetermined significance. EDUCATIONAL NOTES/RECOMMENDATI ONS ? [facility] recommends following the 2001 Consensus Guidelines for the Management of Women with Cervical Cytological Abnormalities (KENDRA,2002;287:212 0-9). Management algorithms have been distributed by [facility] and are available online at www.ASCCP.org. ? Document reviewed and electronically signed by: ? HELEN HEATH MD ? Report Date: ??02/11/2002 10:24 End of Report GABBI HASSAN 02/04/2002 02/06/2002 Richard Paradisetyrese ALANNA PATHOLOGY ORDERABLES Performing Organization Address City/State/[facility] Co de Phone Number GABBI HASSAN [address] [place] [address] documented in this encounter Visit Diagnoses Not on filedocumented in this encounter
--- OUTSIDE RECORDS SUMMARY | 2024-02-19 13:13 | XMS_ITS | Encounter Summary ---
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 https://www.youZenopsube.com/watch?v=L7yBAzTdAZB Seated Resistance Band Exercises https://www.Presella.comube.com/watch?v=KSUoKByDckc Simple Yoga-based strength training https://www.youZenopsube.com/watch?v=y0wcUYSZdTS Balance and Strength training on Stairs https://www.youtube.com/watch?v=gBTHlOQUCRo TRACK food intake Lifestyle No Alfreda Delgado MD Note: BAYRON such as [employer] or Lose it, or pen and paper. [...] on filedocumented in this encounter Care Teams Senior Vice President And Chief Information Officer Relationship Specialty Start Date End Date Carol Randle APRN PCP - General Family Medicine 03/26/22 documented as of this encounter
--- OUTSIDE RECORDS SUMMARY | 2024-02-19 13:13 | XMS_ITS | Encounter Summary ---
Author Organization [facility] Address [facility] [place] [address] Care Team Providers Care Wastewater Plant Civil Engineer Name Role Phone Carol Randle APRN Primary Care Provider [phone] Encounter Details Date Type Department Care Team (Late st Contact Info) Description 08/21/2022 10:30 AM EST TH Visit (TeleHealth) [place] [address] [facility] [place] [place] [address] Adult BMI 33.0-33.9 kg/sq m Social History [...] meal plan, 2-3 meals/day; 6am 3-4x/week B: maori muffin, peanut butter, coffee 10am-1pm L: chicken [...] ??? TRACK food intake BAYRON such as [place] or Lose it, or pen and paper. [...] Alfreda Delgado MD Note: BAYRON such as [employer] or Lose it, or pen and paper. [...] adult documented in this encounter Care Teams Wastewater Plant Civil Engineer Relationship Specialty Start Date End Date Carol Randle APRN PCP - General Family Medicine 03/26/22 documented as of this encounter
--- OUTSIDE RECORDS SUMMARY | 2024-02-19 13:13 | XMS_ITS | Encounter Summary ---
Author Organization [facility] Address [address] [place] [address] Care Team Providers Care Evs Tech Name Role Phone Hung Willis MD Primary Care Provider Unav ailable Encounter Details Date Type Department Care Team (Late st Contact Info) Description 03/07/2021 Lab Requisition [facility] Pathology & Laboratory Medicine - [facility] [address] [place], [place] [address] Outr Resulting Lab, Provider Social History Tobacco [...] Outr Resulting Lab MICROBIOLOGY - GENERAL ORDERABLES [facility] [address] [place] [address] * COVID-19 TESTING (03/07/2021 10:00 EDT) COVID-19 rt-PCR Result Negative Negative 03/08/2021 14:11 EDT [facility] Comment: This test [...] performed using the andrea SARS-CoV-2 assay ([employer] on the Andrea 6800 System Performing Lab Andrea [address] [facility] Lab 03/08/2021 14:11 EDT [facility] Swab 03/07/2021 10:0 0 EDT 03/07/2021 21:13 EDT Provider Outr Resulting Lab MICROBIOLOGY - GENERAL ORDERABLES [facility] [address] [place] [address] documented in this encounter Visit Diagnoses Not on filedocumented in this encounter Care Teams Evs Tech Relationship Specialty Start Date End Date Hung Willis MD PCP - General 03/22/15 documented as of this encounter
--- OUTSIDE RECORDS SUMMARY | 2024-02-19 13:13 | XMS_ITS | Encounter Summary ---
Author Organization [facility] Address [address] [place] [address] Care Team Providers Care Storage Manager Name Role Phone Hung Willis MD Primary Care Provider Unav ailable Encounter Details Date Type Department Care Team (Late st Contact Info) Description 08/20/2019 Lab Requisition [facility] Pathology & Laboratory Medicine - [facility] [address] [place] [address] Ximena Gunderson MD [address] [place] [address] [address] [place], [place] [id number] Benign lipomatous neoplasm of other sites Social [...] no change to the diagnosis. 10/19/2019 13:23 [facility] Final Diagnosis A. SOFT TISSUE OF LEFT POSTERIOR SHOULDER, EXCISION: - Lipoma. 10/19/2019 13:23 [facility] Amendment electronically signed by Khushboo Mohan MD on 10/19/2019 at 1323 at 1736 Attestation There was significant resident/fellow involvement in the diagnostic evaluation of this case. By the signature below, the attending physician certifies that they have personally conducted a gross and/or microscopic examination of the described specimens and rendered or confirmed the above diagnosis. 10/19/2019 13:23 [facility] Amendment electronically signed by Khushboo Mohan MD on 10/19/2019 at 1323 at 1736 Clinical History Lipoma of left posterior shoulder Z32 10/19/2019 13:23 [facility] Gross Description A. Received in [...] cut surfaces devoid of hemorrhage or necrosis. Button Inspector sections to include each margin are submitted in A1-A5. INK ORDONEZ Yellow- anterior Black- posterior Blue- superior Green- inferior Red- medial Bay- lateral Tequila Oden 08/20/2019 9:48 10/19/2019 13:23 [facility] Resident/Raghu w: Rose Zepeda MD 10/19/2019 13:23 [facility] Scanned Images 10/19/2019 13:23 [facility] Tissue SOFT TISSUE / Unknown 08/19/2019 10:20 EST 08/20/2019 9:04 EST Ximena Gunderson MD PATHOLOGY ORDERA [facility] [address] [place] [address] documented in this encounter Visit Diagnoses Diagnosis Benign lipomatous neoplasm of other sites documented in this encounter Care Teams Storage Manager Relationship Specialty Start Date End Date Hung Willis MD PCP - General 03/22/15 documented as of this encounter
--- OUTSIDE RECORDS SUMMARY | 2024-02-19 13:13 | XMS_ITS | Encounter Summary ---
Author Organization [facility] Address [address] [place] [address] Care Team Providers Care Educational Technology Coordinator Name Role Phone Hung Willis MD Primary Care Provider Unav ailable Encounter Details Date Type Department Care Team (Late st Contact Info) Description 02/07/2021 Lab Requisition [facility] Pathology & Laboratory Medicine - [facility] [address] [place], [place] [address] Outr Resulting Lab, Provider Social History Tobacco [...] Not Detected Not Detected 02/08/2021 17:57 EDT [facility] Comment: This test has not [...] or revoked sooner. ??Factsheets for healthcare providers: ??https://www.fda.gov/media/534822/download Factsheets for patients: https://www.fda.gov/media/344313/download Negative results do not preclude infection with SARS-CoV-2 virus, and should not be the sole basis of a patient management decision. Swab ENTIRE NASOPHARYNX / Unknown 02/06/2021 16:00 EDT 02/07/2021 15:46 EDT Provider Outr Resulting Lab MICROBIOLOGY - GENERAL ORDERABLES [facility] [address] [place] [address] * COVID-19 TESTING (02/06/2021 16:00 EDT) COVID-19 rt-PCR Result Not Detected Not Detected 02/08/2021 18:22 EDT [facility] Comment: This test has not [...] or revoked sooner. ??Factsheets for healthcare providers: ??https://www.fda.gov/media/807297/download Factsheets for patients: https://www.fda.gov/media/988392/download Negative results do not preclude infection with SARS-CoV-2 virus, and should not be the sole basis of a patient management decision. Performing Lab [facility] 02/08/2021 18:22 EDT [facility] Swab 02/06/2021 16:0 0 EDT 02/07/2021 15:46 EDT Provider Outr Resulting Lab MICROBIOLOGY - GENERAL ORDERABLES [facility] [address] LABORATORY [address] [place] [address] documented in this encounter Visit Diagnoses Not on filedocumented in this encounter Care Teams Educational Technology Coordinator Relationship Specialty Start Date End Date Hung Willis MD PCP - General 03/22/15 documented as of this encounter
--- OUTSIDE RECORDS SUMMARY | 2024-02-19 13:13 | XMS_ITS | Encounter Summary ---
Author Organization [facility] [place] [address] Care Team Providers Care Route Driver Name Role Phone Carol Randle Annette KNIFEMAN Primary Care Provider [phone] Encounter Details Date Type Department Care Team (Latest Contact Info) Description 05/07/2022 4:25 PM EST Laboratory Appointment Lab [address] [place] [id number] NAFLD (nonalcoholic fatty liver disease) Social History [...] PM EST NAFLD (nonalcoholic fatty liver disease) [id number] Routine 05/07/2022 4 :28 PM EST NAFLD [...] 4:28 PM EST) Neutrophil % 52.0 % [facility] Neutrophil Absolute 5.21 1.70 - 6.10 x10(3)/mc L [facility] Lymph % 38.6 % [facility] Lymphocytes Abs 3.9(H) 0.9 - 3.2 x10(3)/mc L [facility] Monocyte % 6.1 % [facility] Monocyte Abs 0.6 0.3 - 0.9 x10(3)/mc L [facility] Eos % 2.0 % [facility] Eosinophils Abs 0.2 0.0 - 0.4 x10(3)/mc L [facility] Basophil % 0.8 % [facility] Baso Absolute 0.1 0.0 - [...] HERNANDEZ HEMATOLOGY ORDERABLE S [facility] [place] [address] * (ABNORMAL) Hemogram (05/07/2022 4:28 PM EST) White Blood Cell 10.0(H) 4.0 - 9.5 x10(3)/[facility] Red Blood Cell 4.70 4.00 - 5.21 x10(6)/[facility] Hemoglobin 14.5 11.7 - 15.5 g/dL [facility] Hematocrit 42.5 35.7 - 45.8 % [facility] Mean Cell Volume 90.4 82.6 - 94.4 [facility] Mean Cell Hemoglobin 30.9 27.1 - 32.0 pg [facility] Mean Cell Hemoglobin Concentration 34.1 31.7 - 35.0 g/dL [facility] Platelet 339 145 - 357 x10(3)/[facility] RDW Standard Deviation 41.7 37.0 - 46.0 [facility] RDW coefficient of variation 12.7 11.5 - 14.1 % [facility] Mean Platelet Volume 10.3 7.6 - 12.9 [facility] NRBC% auto 0.0 % [facility] NRBC Absolute 0.000 0.000 - 0.000 x10(3)/ L [facility] Blood 05/07/2022 4:28 PM EST 05/07/2022 4:57 PM EST Narrative Resulting Agency Comment Spec In Lab Thony HERNANDEZ HEMATOLOGY ORDERABLE S [facility] [place] [place] [address] * A1AT Genotype (05/07/2022 4:28 PM EST) [...] in the ? S? phenotype ([id number]:c.863 A>T; [id number]) and the ? Z? phenotype (c. 1096G>A; [id number]) are amplified and genotyped by two separate [...] Genomics and Advanced Technology (CGAT) Laboratory at [facility]. It has not been cleared [...] Thony HERNANDEZ CHEMISTRY ORDERABLES Performing Organization Address [facility] de Phone Number [facility] [place] [address] * A1AT Serum Concentration (05/07/2022 4:28 PM EST) A1AT 162 90 - 200 mg/dL [facility] Blood 05/07/2022 4:28 PM EST 05/07/2022 4:57 PM EST Narrative Resulting Agency Comment Spec In Lab Thony HERNANDEZ CHEMISTRY ORDERABLES Performing Organization Address [facility] de Phone Number [facility] [place] [address] * Hepatic Function Panel (05/07/2022 4:28 PM [...] Black MD CHEMISTRY ORDERABLES Performing Organization Address City/[facility]/ZIP Co de Phone Number [facility] [place] [address] * Ceruloplasmin (05/07/2022 4:28 PM EST) Ceruloplasmin 28.1 16.0 - 45.0 mg/dL [facility] Blood 05/07/2022 4:28 PM EST 05/07/2022 4:57 PM EST Narrative Resulting Agency Comment Spec In Lab Kayleen Black MD CHEMISTRY ORDERABLES Performing Organization Address [facility] Co de Phone Number [facility] [place] [address] * Lipid Panel (Reflex Direct LDL) (05/07/2022 4:28 PM EST) Cholesterol, Total 218 mg/dL [facility] Comment: Lower Risk: <200 mg/dL Average Risk: 200-239 mg/dL Higher Risk: >fv=724 mg/dL Triglyceride 66 mg/dL [facility] Comment: Average Risk/Lower Risk: <150 mg/dL Borderline High Risk: 150-199 mg/dL High Risk: 200-499 mg/dL Very High Risk: >id=762 mg/dL HDL Cholesterol 74 mg/dL [facility] Comment: Males: ?? Higher Risk: <40 mg/dL Females: ?? Higher Risk: <50 mg/dL LDL Cholesterol 131 mg/dL [facility] Comment: Lowest Risk: <100 mg/dL Lower Risk: 100-129 mg/dL Borderline High Risk: 130-159 mg/dL High Risk: 160-189 mg/dL Very High Risk: >sa=111 mg/dL Cholesterol/HDL Ratio 2.9 ratio [facility] Lipid Interpretation See Note [facility] Comment: Lipid management should be guided by a patient? s ASCVD risk, goals and preferences. ACC/AHA Guidelines recommend high intensity statin if clinical ASCVD or LDL greater than or equal to 190 mg/dL. http://Sage Science.Floq/VRH-KIJ-Spdzclile Adults aged 40-75 with LDL 70-189 mg/dL should have their 10 year ASCVD risk estimated with the ACC/AHA ASCVD risk checkroom attendant http://tools.acc.org/BDWLR-Wgkz-Mlhhzwoao/ Statin should be discussed if risk greater [...] Black MD CHEMISTRY ORDERABLES Performing Organization Address City/State/[facility] Co de Phone Number [facility] [place] [address] * Hemoglobin A1c (05/07/2022 4:28 PM EST) [...] Mellitus, Diabetes Care 2013; 36: Suppl. 1, N08-00 Estimated Average Glucose 113 mg/dL [facility] [...] into estimated average glucose values. ??Diabetes Care 2008:31(8):8663-8140. Blood 05/07/2022 4:28 PM EST 05/07/2022 4:57 PM EST Narrative Resulting Agency Comment Spec In Lab Kayleen Black MD CHEMISTRY ORDERABLES [facility] [place] [address] documented in this encounter Visit Diagnoses Diagnosis NAFLD (nonalcoholic fatty liver disease) Other chronic nonalcoholic liver disease documented in this encounter Care Teams Route Driver Relationship Specialty Start Date End Date Carol Randle APRN PCP - General Family Medicine 03/26/22 documented as of this encounter
--- OUTSIDE RECORDS SUMMARY | 2024-02-19 13:13 | XMS_ITS | Encounter Summary ---
Author Organization [facility] [place] [address] Care Team Providers Care Saw Straightener Name Role Phone Carol Randle APRN Primary Care Provider [phone] Encounter Details Date Type Department Care Team (Late st Contact Info) Description 10/23/2022 10:30 AM EDT TH Visit (TeleHealth) [place] [address] [facility] [place] [address] Adult BMI 33.0-33.9 kg/sq m Social History [...] choose protein at every eating event; use myPiqqualnesspal to periodically check on calcium intake; documented [...] 5:30am B: overnight oats - rolled oats, taiwanese yogurt/protein powder, berries, banana occasionally, debbie seed, [...] choose protein at every eating event; use myPiqqualnesspal to periodically check on calcium intake; ??? self-awareness and goal setting Draft a Wellness Vision. ??? TRACK food intake BAYRON such as [employer]pal or Lose it, or pen and paper. 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 Aim for 5-10% weight [...] Alfreda Delgado MD Note: BAYRON such as myPiqqualnesspal or Lose it, or pen and paper. [...] adult documented in this encounter Care Teams Saw Straightener Relationship Specialty Start Date End Date Carol Randle APRN PCP - General Family Medicine 03/26/22 documented as of this encounter
--- OUTSIDE RECORDS SUMMARY | 2024-02-19 13:13 | XMS_ITS | Encounter Summary ---
Author Organization [facility] [place] [address] Care Team Providers Care Hyperbaric Technician Name Role Phone Carol Randle APRN Primary Care Provider [phone] Encounter Details Date Type Department Care Team (Late st Contact Info) Description 02/14/2023 2:30 PM EDT Notes Only Weight and Wellness at [facility] [place] [phone] Karma Fleming Social History Tobacco Use Types [...] at the beginning of March. Disposition entered. Rotary Shear Cutter to call. documented in this encounter Plan [...] Minute Resistance Band Workout for Beginners (medium) https://www.Ventarioube.com/watch?v=hJGblku05tl You should all have resistance bands from [...] holding the starting position of that movement. https://www.Ventarioube.com/watch?v=B1iYRfMrHZW Seated Resistance Band Exercises https://www.Ventarioube.com/watch?v=KSUoKByDckc Simple Yoga-based strength training https://www.Ventarioube.com/watch?v=u2jaCILOgEM Balance and Strength training on Stairs https://www.Ventarioube.com/watch?v=gBTHlOQUCRo TRACK food intake Lifestyle No Alfreda Delgado MD Note: BAYRON such as Smartzerpal or Lose it, or pen and paper. [...] on filedocumented in this encounter Care Teams Hyperbaric Technician Relationship Specialty Start Date End Date Carol Randle, JORDY PCP - General Family Medicine 03/26/22 documented as of this encounter
--- OUTSIDE RECORDS SUMMARY | 2024-02-19 13:13 | XMS_ITS | Encounter Summary ---
Author Organization [facility] Address [facility] [place] [address] Care Team Providers Care Cage Operator Name Role Phone Carol Randle APRN Primary Care Provider [phone] Encounter Details Date Type Department Care Team (Latest Contact Info) Description 07/12/2022 2:30 PM EST TH Visit (TeleHealth) Weight [place] [phone] Alfreda Delgado MD [facility] [address] [place] [address] Class 1 obesity with serious comorbidity and [...] from your gallbladder surgery. I asked the medical coder to fax the orders for fasting labs to [facility], please do when you are recovered. Below [...] Vision. TRACK food intake BAYRON such as YOOSE or Lose it, or pen and paper. [...] the 6 week Healthy Lifestyle blocks, pleasecall ([phone]) or stop by our chainstitch pants outseamer's desk to choose day and times. documented in this encounter Progress Notes * Alfreda Delgado MD - 07/12/2022 2:30 PM EST [facility] Healthy Living Clinic Visit ( ) IN CLINIC (xx ) video visit ( ) phone visit Patient Name: Milagros Maher Date of : 1980 Age: 42 y.o. Carol Randle APRN is PCP. Thank you for referring Milagros Maher to the [facility] for consultation regarding obesity. CHIEF COMPLAINT: Follow-up for Obesity No flowsheet data found. INTERVAL HISTORY / PROGRESS TOWARD GOALS: [x] I reviewed past / interim records including notes and labs. This is the first folllow up [facility] visit for this 42 y.o. y.o. [...] (reviewed): [place] . Last visit with health head athletic trainer/strength coach Bertin Bobo: Referrals done other than dietitian and health head athletic trainer/strength coach: ( ) [facility] emotional eating group [...] med during the day. Surgery done at [facility] in [facility]. Dietitian tameka was helpful. She said survery and recovery most important right now. Next appt end of Jul. Health head athletic trainer/strength coach visit: She rec looking into [place]apha [...] would have smoothie for lunch. Yesterday for [facility] small portion mac and cheese. 1/2 cup. [...] ??? TRACK food intake BAYRON such as Stylehivepal or Lose it, or pen and paper. [...] diet, activity. Will re-send info on our [facility] classes and the goals set so far.. Asked MA to fax orders for fasting tsh, bmp, vit D to [facility] in [facility]. Asked her to get a scale so [...] Alfreda Delgado MD Note: BAYRON such as Stylehivepal or Lose it, or pen and paper. [...] Primary documented in this encounter Care Teams Cage Operator Relationship Specialty Start Date End Date Carol Randle APRN PCP - General Family Medicine 03/26/22 documented as of this encounter
--- OUTSIDE RECORDS SUMMARY | 2024-02-19 13:14 | XMS_ITS | Encounter Summary ---
Author Organization [facility] [place] [address] Care Team Providers Care Scarifier Operator Name Role Phone None Primary Care Provider Unavailabl e Encounter Details Date Type Department Care Team (Late st Contact Info) Description 02/25/2016 Orders Only Obstetrics [place] [address] Collette Rashid MD [facility] DR OBSTETRICS & [place] [address] Social History Tobacco Use Types Packs/Day Years [...] on filedocumented in this encounter Care Teams Scarifier Operator Relationship Specialty Start Date End Date None None PCP - General 04/27/15 03/25/22 documented as of this encounter
--- OUTSIDE RECORDS SUMMARY | 2024-02-19 13:14 | XMS_ITS | Encounter Summary ---
Author Organization [facility] [place] [address] Care Team Providers Care Cloth Shrinking Machine Operator Helper Name Role Phone None Primary Care Provider Unavailabl e Encounter Details Date Type Department Care Team (Late st Contact Info) Description 09/26/2021 Ancillary Procedure [place] [address] Carol Randle APRN [address] [place] [address] Social History Tobacco Use Types Packs/Day Years [...] CT Chest (09/26/2021 12:00 AM EDT) Narrative [facility] - 03/07/2022 3:15 PM EDT This exam is auto-finalizing. It's purpose is for storage only. Carol Randle APRN IMG FILM LIBRARY ORD ERABLES [place], [place] documented in this encounter Visit Diagnoses Not on filedocumented in this encounter Care Teams Cloth Shrinking Machine Operator Helper Relationship Specialty Start Date End Date None None PCP - General 04/27/15 03/25/22 documented as of this encounter
--- OUTSIDE RECORDS SUMMARY | 2024-02-19 13:14 | XMS_ITS | Encounter Summary ---
Author Organization [facility] [place] [address] Care Team Providers Care Naval Aircrewman Avionics Name Role Phone None Primary Care Provider Unavailabl e Encounter Details Date Type Department Care Team (Late st Contact Info) Description 08/10/2016 Orders Only Obstetrics [place] [address] Emily Archer Social History Tobacco Use Types [...] on filedocumented in this encounter Care Teams Naval Aircrewman Avionics Relationship Specialty Start Date End Date None None PCP - General 04/27/15 03/25/22 documented as of this encounter
--- OUTSIDE RECORDS SUMMARY | 2024-02-19 13:14 | XMS_ITS | Encounter Summary ---
[place] [address] Care Team Providers Care Rf Microwave Engineer Name Role Phone None Primary Care Provider Unavailabl e Reason for Referral * Consultation (Routine) - Closed Specialty Diagnoses / Procedures Referred By Jarad t Referred To Contact Gastroenterology Diagnoses Fatty infiltration of liver fatty liver Carol Randle APRN [address] [place] [address] [facility] [address] [place] [address] Referral ID Status Reason Start Date Expiration Date V isits Requested Visits Authorized [id number] Closed Consult, Test & Treat 03/07/2022 03/07/2023 1 1 Encounter Details Date Type Department Care Team (Latest Contact Info) Description 03/07/2022 Transcribe Orders eDH Incoming Referrals [phone] Carol Randle APRN [address] [place], [place] [id number] Fatty infiltration of liver (Primary Dx) Social [...] disease documented in this encounter Care Teams Rf Microwave Engineer Relationship Specialty Start Date End Date None None PCP - General 04/27/15 03/25/22 documented as of this encounter
--- OUTSIDE RECORDS SUMMARY | 2024-02-19 13:14 | XMS_ITS | Encounter Summary ---
Author Organization [facility] [place] [address] Care Team Providers Care Delicatessen Goods Stock Clerk Name Role Phone None Primary Care Provider Unavailabl e Reason for Visit * Reason Comments Post Op Encounter Details Date Type Department Care Team (Late st Contact Info) Description 04/02/2016 1:00 PM EDT Office Visit Obstetrics [place] [address] Collette Rashid MD [facility] DR OBSTETRICS [place] [address] Surgical menopause; Post-operative state; Endometriosis Social History [...] isnow 5 weeks post-op. Works at the [employer], not back at work yet. Still needs [...] unspecified documented in this encounter Care Teams Delicatessen Goods Stock Clerk Relationship Specialty Start Date End Date None None PCP - General 04/27/15 03/25/22 documented as of this encounter
--- OUTSIDE RECORDS SUMMARY | 2024-02-19 13:14 | XMS_ITS | Encounter Summary ---
Author Organization [facility] [place] [address] Care Team Providers Care Washing And Screening Plant Supervisor Name Role Phone None Primary Care Provider Unavailabl e Reason for Visit * Reason Onset Date Comments Medication Reaction 08/09/2016 combipatch Encounter Details Date Type Department Care Team (Late st Contact Info) Description 08/09/2016 Telephone Obstetrics [place] [phone] Emily Archer Medication Reaction (combipatch) Social History [...] medication for patient. Patient aware and will merchandise pickup/receiving associate new medication tonight or tomorrow evening. Patient requesting medication to be called into [facility] in [place], [place]. Will call clinic with further questions or concerns. documented in this encounter Plan of Treatment Not on file documented as of this encounter Visit Diagnoses Not on filedocumented in this encounter Care Teams Washing And Screening Plant Supervisor Relationship Specialty Start Date End Date None None PCP - General 04/27/15 03/25/22 documented as of this encounter
--- OUTSIDE RECORDS SUMMARY | 2024-02-19 13:14 | XMS_ITS | Encounter Summary ---
Author Organization [facility] [place] [address] Care Team Providers Care Toe Puncher Name Role Phone None Primary Care Provider Unavailabl e Reason for Visit * Reason Comments Follow-up Encounter Details Date Type Department Care Team (Late st Contact Info) Description 10/24/2015 11:15 AM EDT Office Visit Obstetrics [place] [address] Ari Francis MD [facility] DR OBSTETRICS & [place] [address] Endometriosis Social History Tobacco Use Types Packs/Day [...] for her. I spent 20 minutes in [id number] care with the patient, of which 20 [...] Free T4 1.37 0.93 - 1.70 ng/dL [facility] Blood specimen (specimen) 10/24/2015 12:18 PM EDT 10/24/2015 12:28 PM EDT Narrative Resulting Agency Comment Spec In Lab Ari Francis MD CHEMISTRY ORDERABLES Performing Organization Address City/[facility]/ZIP Co de Phone Number [facility] [place] [address] * TSH (10/24/2015 12:18 PM EDT) Thyroid Stimulating Hormone 2.48 0.27 - 4.20 mcIU/mL [facility] Blood specimen (specimen) 10/24/2015 12:18 PM EDT 10/24/2015 12:28 PM EDT Narrative Resulting Agency Comment Spec In Lab Ari Francis MD CHEMISTRY ORDERABLES Performing Organization Address City/[facility]/ZIP Co de Phone Number [facility] [place] [address] documented in this encounter Visit Diagnoses Diagnosis [...] Gluteal documented in this encounter Care Teams Toe Puncher Relationship Specialty Start Date End Date None None PCP - General 04/27/15 03/25/22 documented as of this encounter
--- OUTSIDE RECORDS SUMMARY | 2024-02-19 13:14 | XMS_ITS | Encounter Summary ---
Author Organization [facility] Address [facility] [place] [address] Care Team Providers Care Gis Software Engineer Name Role Phone None Primary Care Provider Unavailabl e Reason for Visit * Reason Comments Establish Care Endometriosis disc hysterectomy Encounter Details Date Type Department Care Team (Late st Contact Info) Description 04/27/2015 1:00 PM EST Office Visit Obstetrics [place] [address] Jacque Wolff MD [facility] OBSTETRICS [place] [address] Endometriosis Social History Tobacco Use Types Packs/Day [...] EST REPRODUCTIVE MEDICINE NEW PATIENT CONSULT NOTE [place], [place] Jacque Meek MD IVF/ART Production Scheduler Mendoza Castillo, MD Kei Curry, MD Candice Nair ARNP Donna Bedard, program medical records secretary [phone] Chief Complaint: 1.) Endometriosis SUBJECTIVE: Ms. Maher [...] 6 months intervals. 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
--- OUTSIDE RECORDS SUMMARY | 2024-02-19 13:14 | XMS_ITS | Encounter Summary ---
Author Organization [facility] [place] [address] Care Team Providers Care Corporate Physical Security Supervisor Name Role Phone Carol Randle APRN Primary Care Provider [phone] Reason for Referral * Consultation (Routine) - Closed Specialty Diagnoses / Procedures Referred By Contsagar t Referred To Contact Weight and Wellness Diagnoses Prediabetes Fatty infiltration of liver Carol Randle APRN [address] [place] [address] [facility] [address] [place] [address] Referral ID Status Reason Start Date Expiration Date V isits Requested Visits Authorized [id number] Closed Consult, Test & Treat PCP Updated and/or Approved 03/26/2022 03/26/2023 1 1 Encounter Details Date Type Department Care Team (Latest Contact Info) Description 03/26/2022 Transcribe Orders eDH Incoming Referrals [phone] Carol Randle APRN [address] [place], [place] [id number] Prediabetes; Fatty infiltration of liver Social History [...] disease documented in this encounter Care Teams Corporate Physical Security Supervisor Relationship Specialty Start Date End Date Carol Randle APRN PCP - General Family Medicine 03/26/22 documented as of this encounter
--- OUTSIDE RECORDS SUMMARY | 2024-02-19 13:14 | XMS_ITS | Encounter Summary ---
Author Organization [facility] [place] [address] Care Team Providers Care Cook Helper Vegetable Name Role Phone None Primary Care Provider Unavailabl e Reason for Visit * Reason Comments Follow-up depo Encounter Details Date Type Department Care Team (Late st Contact Info) Description 07/25/2015 9:30 AM EST Office Visit Obstetrics [place] [phone] Candice Wood APRN [facility] [place] [address] Endometriosis (Primary Dx); Chronic pelvic pain in [...] Gluteal documented in this encounter Care Teams Cook Helper Vegetable Relationship Specialty Start Date End Date None None PCP - General 04/27/15 03/25/22 documented as of this encounter
--- OUTSIDE RECORDS SUMMARY | 2024-02-19 13:14 | XMS_ITS | Encounter Summary ---
Author [facility] [place] [address] Care Team Providers Care Glove Boarder Name Role Phone None Primary Care Provider Unavailabl e Reason for Visit * Reason Onset Date Comments Medication Refill 05/31/2016 Encounter Details Date Type Department Care Team (Late st Contact Info) Description 05/31/2016 Refill Obstetrics [place] [phone] Emily Archer Social History Tobacco Use Types [...] on filedocumented in this encounter Care Teams Glove Boarder Relationship Specialty Start Date End Date None None PCP - General 04/27/15 03/25/22 documented as of this encounter
--- OUTSIDE RECORDS SUMMARY | 2024-02-19 13:14 | XMS_ITS | Encounter Summary ---
Author Organization [facility] [place] [address] Care Team Providers Care Supervisor Boiler Repair Name Role Phone None Primary Care Provider Unavailabl e Reason for Visit * Reason Comments Follow-up fabiola Encounter Details Date Type Department Care Team (Late st Contact Info) Description 02/06/2016 8:00 AM EDT Office Visit Obstetrics [place] [address] Ari Francis MD [facility] DR OBSTETRICS [place] [address] Endometriosis Social History Tobacco Use Types Packs/Day [...] Gluteal documented in this encounter Care Teams Supervisor Boiler Repair Relationship Specialty Start Date End Date None None PCP - General 04/27/15 03/25/22 documented as of this encounter
--- OUTSIDE RECORDS SUMMARY | 2024-02-19 13:14 | XMS_ITS | Encounter Summary ---
Author Organization [facility] [place] [address] Care Team Providers Care Gypsum Block Setter Name Role Phone None Primary Care Provider Unavailabl e Encounter Details Date Type Department Care Team (Late st Contact Info) Description 10/12/2021 Ancillary Procedure [place] [address] Carol Randle APRN [address] [place] [address] Social History Tobacco Use Types Packs/Day Years [...] Ultrasound Study (10/12/2021 12:00 AM EDT) Narrative [facility] - 03/07/2022 2:25 PM EDT This exam is auto-finalizing. It's purpose is for storage only. Carol Randle APRN IMG FILM LIBRARY ORD ERABLES [place], [place] documented in this encounter Visit Diagnoses Not on filedocumented in this encounter Care Teams Gypsum Block Setter Relationship Specialty Start Date End Date None None PCP - General 04/27/15 03/25/22 documented as of this encounter
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
--- OUTSIDE RECORDS SUMMARY | 2024-02-19 13:14 | XMS_ITS | Encounter Summary ---
Author Organization [facility] Address [facility] [place] [address] Care Team Providers Care Capital Campaign Fundraiser Name Role Phone None Primary Care Provider Unavailabl e Reason for Referral * Consultation (Routine) - Closed Specialty Diagnoses / Procedures Referred By Contac t Referred To Contact Thoracic Surgery Diagnoses Nicotine dependence, cigarettes, uncomplicated Tobacco abuse counseling Ari Francis MD [facility] OBSTETRICS & [place] [address] Candice Wilson APRN [facility] [place] [address] Referral ID Status Reason Start Date Expiration Date V isits Requested Visits Authorized [id number] Closed Consult, Test & Treat 11/26/2016 11/26/2017 1 1 Reason for Visit * Reason Comments Follow-up Encounter Details Date Type Department Care Team (Late st Contact Info) Description 11/26/2016 9:30 AM EDT Office Visit Obstetrics [place] [address] Ari Francis MD [facility] OBSTETRICS & [place] [address] Nicotine dependence, cigarettes, uncomplicated; Tobacco abuse counseling; [...] to make an appointment call . Call 5-005-KCMI-NOW ( ) for [place] or [place] for free telephone support for quittingtobacco. [...] Nicotine Replacement Therapy , September 23, 2012: https://www.federalregister.gov/articles//2013-18769/modifications-to- tzcqtnhs-df-ycszshar-ftzuuahhbob-qzgjhht-ffbbrmuq-nln-lumf-zwf-myoyjwt-ixnln-fxb documented in this encounter Progress Notes * [...] has tried a few routes through the [place] Tobacco Cessation Program in the past and [...] uterus documented in this encounter Care Teams Capital Campaign Fundraiser Relationship Specialty Start Date End Date None None PCP - General 04/27/15 03/25/22 documented as of this encounter
--- OUTSIDE RECORDS SUMMARY | 2024-02-19 13:14 | XMS_ITS | Encounter Summary ---
Author Organization [facility] Address [facility] [place] [address] Care Team Providers Care Baker Pie Name Role Phone None Primary Care Provider Unavailabl e Reason for Visit * Auth/Cert Specialty Diagnoses / Procedures Referred By Contac t Referred To Contact Diagnoses endometriosis Procedures PRO LAPAROSCOPY W TOT HYSTERECT UTERUS 250 GRAM OR LESS LAPAROSCOPY, HYSTERECTOMY, UTERUS<250GMS Referral ID Status Reason Start Date Expiration Date Visits Re quested Visits Authorized [id number] 1 1 Encounter Details Date Type Department Care Team (Late st Contact Info) Description 02/28/2016 11:25 AM EDT Anesthesia Event [place] [address] Sherri Conroy MD [facility] DR [place] [address] Luz Jo MD [facility] DR [place] [address] Anesthesia Record Procedure Summary Procedure Name Responsible [...] cephalic vein left (lateral side of arm); sibd-sbl-phkvpf catheter system; 20 gauge, 1 in length; CHRISSIE Marti; distraction, intradermal injection, tolerated well; 1; median vein (underside of arm), left; no longer indicated, removed per policy/procedure, catheter intact, site care per policy/procedure; 02/29/16; 0838 02/28/16 0941 by Elaine Teague 02/29/16 0838 by Deb Haynes RN (RETIRED) Peripheral IV Line - Single Lumen 02/28/16; 1125; metacarpal vein right (top of hand); ijpq-mvo-vdrtsj catheter system; 18 gauge; enrique chau do; [...] Conroy MD - 02/28/2016 4:34 PM EDT [facility] Department of Anesthesiology Post-procedure Note Patient: Milagros Maher Procedure Summary Date Anesthesia Start Anesthesia Stop Room / Location 02/28/16 1125 1557 [facility] OR / [facility] MAIN OR Procedure Diagnosis Surgeon Responsible Provider @HYSTERECTOMY, TOTAL ABD., W W/O BSO (N/A Abdomen); LAPAROSCOPY, LYSIS OF ADHESIONS (N/A Abdomen) Endometriosis (endometriosis) Ari Francis MD Herrick, Michael D, MD All Anesthesia Providers: Anesthesiologist: Sherri Conroy MD Irrigating Pump Operator: Enrique Chau DO; Luz Jo MD Last (1hr) Vitals: BP 148/80 (02/28/16 1630) Temp 36.7 ??C (98.1 ??F) (02/28/16 1550) Pulse 96 (02/28/16 1630) Resp 12 (02/28/16 1630) SpO2 99 % (02/28/16 1615) Patient Location: PACU/[facility] Level of Consciousness: Awake and Alert Pain [...] Length: 10 cm Gauge: 20 Needle Type: O-bctam-ramvu Medication injection made incrementally with aspirations. Nerve [...] Length: 10 cm Gauge: 20 Needle Type: P-umzio-dwnws Medication injection made incrementally with aspirations. Nerve [...] mg documented in this encounter Care Teams Baker Pie Relationship Specialty Start Date End Date None None PCP - General 04/27/15 03/25/22 documented as of this encounter
--- OUTSIDE RECORDS SUMMARY | 2024-02-19 13:14 | XMS_ITS | Encounter Summary ---
Author Organization [facility] Address [facility] [place] [address] Care Team Providers Care Motion Graphics Designer Name Role Phone None Primary Care Provider Unavailabl e Reason for Visit * Reason Comments Shoulder Pain Encounter Details Date Type Department Care Team (Late st Contact Info) Description 07/19/2019 2:00 PM EST - 07/19/2019 6:15 PM EST [place] [address] Brenton Davison III, MD [facility] [place] [address] Acute pain of left shoulder Discharge Disposition: [...] as well as headache she went to [facility] ED yesterday who performed a head CT [...] on Saturday. Was seen at ED in [facility] for the same and was sent [...] number below. Electronically signed by: DAREN Marr [facility]([phone]), at 07/19/2019 3:17 PM Wilian Richardson MD IMG DX ORDERABLES documented in this encounter Visit Diagnoses Diagnosis Acute pain of left shoulder documented in this encounter Care Teams Motion Graphics Designer Relationship Specialty Start Date End Date None None PCP - General 04/27/15 03/25/22 documented as of this encounter
--- OUTSIDE RECORDS SUMMARY | 2024-02-19 13:14 | XMS_ITS | Encounter Summary ---
Author Organization [facility] [place] [address] Care Team Providers Care Bender Machine Name Role Phone None Primary Care Provider Unavailabl e Reason for Visit * Reason Comments Follow-up Encounter Details Date Type Department Care Team (Late st Contact Info) Description 10/22/2016 10:45 AM EDT Office Visit Obstetrics [place] [address] Ari Francis MD [facility] OBSTETRICS & [place] [address] Surgical menopause; Chronic pelvic pain in female; [...] AM EDT I spent 30 minutes in zezf-cm-dukd care with the patient, of which 30 [...] type documented in this encounter Care Teams Bender Machine Relationship Specialty Start Date End Date None None PCP - General 04/27/15 03/25/22 documented as of this encounter
--- OUTSIDE RECORDS SUMMARY | 2024-02-19 13:14 | XMS_ITS | Encounter Summary ---
Author Organization [facility] [address] Care Team Providers Care Box Tender Name Role Phone None Primary Care Provider Unavailabl e Reason for Visit * Reason Comments Follow-up Encounter Details Date Type Department Care Team (Late st Contact Info) Description 04/25/2016 3:00 PM EDT Office Visit Obstetrics [place] [address] Ari Francis MD [facility] [address] OBSTETRICS & [place] [address] Surgical menopause; Symptomatic premature menopause Social History [...] this encounter Patient Instructions * Patient Instructions* rAi Francis MD - 04/25/2016 3:00 PM EDT [...] Result Value Ref Range Surgical Pathology Report [id number] Location: ; BP09; B The signing pathologist [...] endometrium measures 0.1 cm in thickness. Myometrium: [place] and trabecular measuring 2.2 cm in thickness. [...] (4) posterior endomyometrium with serosal adhesions; (5) territory account representative sections of right ovary; (6) territory account representative sections of right fallopian tube; (7) territory account representative sections of left ovary; (8) territory account representative sections of left fallopian tube . (R8) [...] menopause documented in this encounter Care Teams Box Tender Relationship Specialty Start Date End Date None None PCP - General 04/27/15 03/25/22 documented as of this encounter
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
--- OUTSIDE RECORDS SUMMARY | 2024-02-19 13:14 | XMS_ITS | Encounter Summary ---
Author Organization [facility] [place] [address] Care Team Providers Care Mill Worker Name Role Phone Carol Randle APRN Primary Care Provider [phone] Reason for Visit * Reason Comments Leg Pain Encounter Details Date Type Department Care Team (Late st Contact Info) Description 04/11/2022 9:42 PM EDT - 04/11/2022 11:54 PM EDT Emergency [place] [address] Roxanne Foy MD [facility] [place] [address] Musculoskeletal leg pain, right Discharge Disposition: Home [...] sent through Care Everywhere. * Muscle Strain (Bhutanese) * Leg Pain (Bhutanese) documented in this encounter Medications at Time of Discharge Medication Sig Dispensed Refills Start Date End Date fluticasone propionate (Flonase) 50 mcg/actuation Howell, Suspension SPRAY TWO SPRAYS IN EACH NOSTRIL [...] right documented in this encounter Care Teams Mill Worker Relationship Specialty Start Date End Date Carol Randle, JORDY PCP - General Family Medicine 03/26/22 documented as of this encounter
--- OUTSIDE RECORDS SUMMARY | 2024-02-19 13:14 | XMS_ITS | Encounter Summary ---
Author Organization [facility] [place] [address] Care Team Providers Care Environmental Health Officer Name Role Phone None Primary Care Provider Unavailabl e Encounter Details Date Type Department Care Team (Late st Contact Info) Description 03/06/2022 Ancillary Procedure [place] [address] Carol Randle APRN [address] [place] [address] Social History Tobacco Use Types Packs/Day Years [...] & Pelvis (03/06/2022 12:00 AM EDT) Narrative [facility] - 03/07/2022 3:12 PM EDT This exam is auto-finalizing. It's purpose is for storage only. Carol Randle APRN IMG FILM LIBRARY ORD ERABLES [facility] [place], [place] documented in this encounter Visit Diagnoses Not on filedocumented in this encounter Care Teams Environmental Health Officer Relationship Specialty Start Date End Date None None PCP - General 04/27/15 03/25/22 documented as of this encounter
--- OUTSIDE RECORDS SUMMARY | 2024-02-19 13:14 | XMS_ITS | Encounter Summary ---
Author Organization [facility] [place] [address] Care Team Providers Care Aircraft Maintenance Supervisor Name Role Phone None Primary Care Provider Unavailabl e Reason for Visit * Reason Onset Date Comments Post Procedure Call 03/02/2016 02/28/2016 Encounter Details Date Type Department Care Team (Late st Contact Info) Description 03/02/2016 Telephone Obstetrics [place] [phone] Emily Archer Post Procedure Call (02/28/2016) Social [...] telephone contacts. Questions/concerns to call clinic at [phone]. documented in this encounter Plan of Treatment Not on file documented as of this encounter Visit Diagnoses Not on filedocumented in this encounter Care Teams Aircraft Maintenance Supervisor Relationship Specialty Start Date End Date None None PCP - General 04/27/15 03/25/22 documented as of this encounter
[2024-02-19] MEDS: Lactated Ringers 1,000 ML 125 ML IV (13:20)
[2024-02-19] MEDS: MORPHine 2 MG/ML SYR IVP ×2 (13:22→18:35)
--- NOTE | 2024-02-19 14:19 | ANES.PREOP_ITS ---
General Info Date of Service Date Performed: 02/19/24 Height: 5 ft 6 in Weight: 90.718 kg Body Mass Index (BMI): 32.3 Surgical Procedure: Operation Date: 02/19/24 15:40 Proposed Procedure Side Surgeon p Appendectomy Laparoscopic Anthony Tucker MD Meds Allergies and Home Medications Allergies Allergy/AdvReac Type Severity Reaction Status Date / Time adhesive Allergy Skin Rash Verified 02/19/24 06:26 bupropion AdvReac skin Verified 02/19/24 06:26 crawling Home Medication ?Medication ?Instructions ?Recorded cholecalciferol (vitamin D3) 25 1,000 unit PO HS 07/01/19 mcg/drop (1,000 unit/drop) oral drops albuterol sulfate 90 mcg/actuation 2 puff inhalation .Q4-6H PRN 03/01/21 aerosol inhaler (ProAir HFA) montelukast 10 mg tablet 10 mg PO QPM 03/01/21 fluticasone propionate 50 2 spray intranasal DAILY #16 grams 03/15/21 mcg/actuation nasal spray,suspension (Flonase Allergy Relief) folic acid 1 mg tablet 1 mg PO DAILY 06/04/22 loratadine 10 mg tablet (Allergy 10 mg PO DAILY 06/04/22 Relief (loratadine)) tiotropium bromide 2.5 2 puff inhalation DAILY 06/04/22 mcg/actuation mist for inhalation (Spiriva Respimat) budesonide-formoterol HFA 160 2 puff inhalation BID 03/09/23 mcg-4.5 mcg/actuation aerosol inhaler (Symbicort) Current Visit Medications: Current Medications Generic Name Dose Route Start Last Admin Trade Name Freq PRN Reason Stop Dose Admin Heparin Sodium (Porcine) 5,000 units 02/19/24 10:00 02/19/24 11:37 Heparin 5,000 Units/Ml Vial SC 5,000 units Q8H LANA Administration Ringer's Solution 1,000 mls @ 125 mls/hr 02/19/24 09:15 02/19/24 13:20 IV 125 mls/hr INFUSION LANA Administration Piperacillin Sod/Tazobactam 50 mls @ 100 mls/hr 02/19/24 16:00 Sod 3.375 gm/ Sodium Chloride IVPB Q6H LANA Iohexol 100 ml 02/19/24 07:30 02/19/24 07:27 Omnipaque 350 Mg/Ml 100 Ml Btl IJ 03/20/24 23:59 100 ml DIRECTED LANA Administration Morphine Sulfate 2 mg 02/19/24 09:07 02/19/24 13:22 Morphine 2 Mg/Ml Syr IVP 2 mg Q1H PRN PRN Administration Ondansetron HCl 4 mg 02/19/24 09:07 02/19/24 13:21 Ondansetron 4 Mg/2 Ml Vial IVP 4 mg Q4H PRN PRN Administration Sodium Chloride 50 ml 02/19/24 07:30 02/19/24 07:28 Normal Saline - Diluent 50 Ml Vial IJ 50 ml .FOR DI USE LANA Administration PFSH Active Problems Active Problems: Problem Status Onset Code Acute appendicitis Acute K35.80 Patellofemoral syndrome Acute M22.2X9 Depression Acute F32.9 Anxiety Acute F41.9 BMI 29.0-29.9,adult Acute Z68.29 Kidney stones Acute N20.0 Hx of endometriosis Acute Z87.42 History of asthma Acute Z87.09 Tendinitis of long head of biceps brachii of left shoulder Acute ~07/2019 M75.22 Headache, unspecified Acute R51.9 Jaw pain Acute R68.84 Sinusitis, chronic Acute J32.9 Anticipatory grieving Acute F43.20 Plantar fasciitis, bilateral Acute M72.2 Lumbar radiculopathy Acute M54.16 Benign essential HTN Acute I10 Tobacco smoker within last 12 months Acute F17.200 Chronic rhinitis Acute J31.0 Mucocele of maxillary sinus Acute J34.1 COVID-19 Acute U07.1 Asthma Chronic J45.909 Biliary dyskinesia Resolved K82.8 Medical History Medical History Requires supplemental oxygen per pt. states when she sleeps her O2 drops to the 80's and has to wear 2L O2 at night Hypoxemia per pt. states when she sleeps her o2 drops to the 80's and has to wear 2L O2 at night Lipoma of extremity Bursitis of left shoulder Biceps tendonitis on left Raynauds syndrome PTSD (post-traumatic stress disorder) Per pt. states no issues currently History of depression Light tobacco smoker Fatigue Pain in left shoulder Dysmenorrhea (03/24/15) Dyspareunia (02/23/15) Menorrhagia (02/23/15) 7-10d menses Surgical History Surgical History S/P excision of lipoma left shoulder S/P QUINTEN-BSO Curettage of endometrium (03/17/15) Dr. Rosenda Mathews Pathologic Diagnosis -Proliferative endometrium with extensive stomal breakdown -Benign fragments of squamous mucosa -No cytologic atypia Tobacco Smoking/Tobacco Use Status: Current every day Tobacco Type: cigarettes Alcohol Alcohol Intake: current Alcohol intake frequency: holidays/special occasions only Substance Use Substance use: Never Substance use type: does not use Vital Signs and Lab Results Vital Signs Most Recent Vital Signs in EMR: Most Recent Vital Signs Temp Pulse Resp BP Pulse Ox 36.9 C 79 20 138/92 H 93 02/19/24 09:19 02/19/24 09:46 02/19/24 12:50 02/19/24 09:46 02/19/24 12:50 Point of Care Results Point of Care Results: POC- Test(urine) Negative 02/19/24 07:02 Lab Results 02/19/24 07:02 02/19/24 07:02 Blood Type / Crossmatch: 2 No Data to Display Complete Blood Count: 2 White Blood Count 22.28 10^3/uL (4.4-10.8) H 02/19/24 07:02 Red Blood Count 4.85 10^6/uL (3.93-5.22) 02/19/24 07:02 Hemoglobin 15.3 g/dL (11.2-15.7) 02/19/24 07:02 Hematocrit 44.1 % (36.0-46.0) 02/19/24 07:02 Platelet Count 310 10^3/uL (130-400) 02/19/24 07:02 Complete Metabolic Panel: 2 Sodium 140 mmol/L (136-145) 02/19/24 07:02 Potassium 3.5 mmol/L (3.5-5.1) 02/19/24 07:02 Chloride 106 mmol/L (98-107) 02/19/24 07:02 Carbon Dioxide 23.0 mmol/L (21.0-32.0) 02/19/24 07:02 BUN 14 mg/dL (7-18) 02/19/24 07:02 Creatinine 0.9 mg/dL (0.55-1.02) 02/19/24 07:02 Est GFR (CKD-EPI 2020) 82.37 (mL/min/1.73m2) 02/19/24 07:02 Calcium 9.6 mg/dL (8.5-10.1) 02/19/24 07:02 Albumin 3.9 g/dL (3.4-5.0) 02/19/24 07:02 Glucose 112 mg/dL (74-106) H 02/19/24 07:02 Liver Function Panel: 2 Alanine Aminotransferase (ALT/SGPT) 19 U/L (14-59) 02/19/24 07: 02 Aspartate Amino Transf (AST/SGOT) 13 U/L (15-37) L 02/19/24 07: 02 Coagulation Panel: 2 No Data to Display Cardiac Panel: 2 No Data to Display Arterial Blood Gas: 2 No Data to Display Venous Blood Gas: 2 No Data to Display Pancreas Panel: 2 Lipase 38 U/L (16-77) 02/19/24 07:02 Thyroid Panel: 2 No Data to Display Infectious Disease: 2 No Data to Display Blood Cultures: 2 No Data to Display Toxicology Panel: 2 No Data to Display Panel: 2 No Data to Display Imaging and Studies Imaging and Studies Study information below may be from another EMR and interpreted by another provider. Please see original notes in EMR for more complete details. Pulmonary Function Summary: : positive methacholine, otherwise normal. Anesthesia Assessment and Plan Anesthesia History Personal History: No History of Anesthesia Complications Family History: No Family History of Anesthesia Complications Exercise Tolerance Exercise Tolerance: Metabolic Equivalents>4 Pertinent Negatives Pertinent Negatives: No Symptoms of GERD Cardiac & Pulmonary Exam Cardiac Exam: Normal S1/S2 Heart Sounds Pulmonary Exam: Clear Bilateral Breath Sounds Implantable Cardiac Device Does patient have a Pacemaker or an ICD?: No Airway Exam Known Difficult Airway: No Mallampati Class: 2 Mouth Opening: Normal (> 3cm) Thyromental Distance: Less than 3 cm Neck Range of Motion: Full ROM Neck Circumference: Normal Teeth Condition: Edentulous ASA Classification ASA Score: ASA 2 Emergency Case?: No NPO Status NPO Status: NPO Clears >2 hours, Solids >8 hours Status Status: Not Relevant due to Medical History Anesthesia Plan Resuscitation Status: Full Code Anesthesia Technique: General Anesthesia Airway Planned: Endotracheal Tube Monitors Used: Standard Monitors Preoperative Comments:: 43 yo female for lap appy. Discussed with patient at bedside with spouse present. Sig PMHX: depression/anxiety, HTN (valsartan), asthma (Symbicort, spiriva, albuterol), GERD (pantoprazole twice daily, poorly controlled) PTSD, sleep apnea with noc 2 lpm O2, daily smoker, occ EtOH/cannabis, pulmonary nodule, was preDM (last A1c was better).
[2024-02-19] MEDS: Lactated Ringers 1,000 ML 100 ML IV ×2 (16:16→18:34)
--- NOTE | 2024-02-19 16:19 | NUR.NOTE ---
Nursing Note: 3103 Patient to operating room with Drea RN.
[2024-02-19] MEDS: PIPERACILLIN/TAZO 3.375 GM in Normal Saline 50 ML IVPB ×2 (16:30→22:51)
[2024-02-19] MEDS: Bupivacaine 0.25% Pres-Free 30 ML VIAL (16:57)
--- NOTE | 2024-02-19 17:00 | APP_PTH ---
PATIENT: Milagros Maher LOC: [id number]#:[id number] AGE/SX: 43/F ROOM: 208 RE02/19/[address]: Anthony Tucker : 1980 BED: A DIS: 02/20/2024 SPEC #: [id number] RECD: 02/19/24 18:15 STATUS: VIOLETA REQ #: [id number] KENISHA: 02/19/24 17:[address]: Anthony Tucker DEPT: Surgical Specimen RECD BY: Maria Dolores Constantino ENTERED: 02/19/24 18:16 SP TYPE: Appendix OTHR DR: Rosanna Godinez V Tissues: 1 - APPENDIX NOT INCIDENTAL Procedures: IMMUNOPEROXIDASE STAIN GROSS AND MICRO LEVEL 3 Comments: [id number]
--- NOTE | 2024-02-19 17:17 | ROE_ITS ---
Date of service: 02/19/24 Time of Service: 17:10 Operative Note Operative Note Refer to Anesthesia Record Procedure Description: Procedures performed: 1. Laparoscopic appendectomy Pre-op diagnosis: Acute appendicitis, malrotation Postoperative diagnosis: Acute appendicitis, malrotation Surgeon: Lucero Tucker Anesthesia: Kavon Chisel Worker: Tommie Indication for procedure: 43-year-old woman with acute abdominal pain and CT scan findings concerning for appendicitis. Her cecum is somewhat in the midline as is the ascending/right colon. Small bowel is lateral to the colon on cross- sectional imaging. FINDINGS: A non-perforated but very firm, indurated and inflamed appendix(mostly at the tip/distal third). It was removed in standard fashion. The cecum and right colon are not attached at all to the right sidewall and are free?floating. The terminal ileum comes in from lateral to medial on the cecum with a significant portion of mid-gut lateral to the ascending colon. Specimens: 1. Appendix Complications: None Blood loss: 10 cc Urine output: Not measured Implants/drains: None Procedure in detail: The patient gave written consent and was in agreement with the indications, the likely benefits as well as the potential risks of surgery. She was taken back to the operating room where anesthesia was administered which was tolerated well. She was positioned supine on the operating room table and we then prepped and draped in sterile fashion. We confirmed DVT prophylaxis as well as antibiotics had been administered. When we were all in agreement with our timeout we started the procedure. Local anesthetic was injected at the umbilicus. A skin incision was made at the umbilicus and a 5 mm trocar was used to enter the abdominal cavity through this. Insufflation was performed which was tolerated well. 2 more trocars were placed under direct visualization in the suprapubic location in the left lower quadrant. Local anesthetic was also given in each of the sites. We turned our attention to the right lower quadrant where an inflamed, indurated but nonperforated appendix was easily identified on a free-floating cecum and right edmundo-colon. There were no lateral attachments to the peritoneum and a large portion of small bowel is lateral to the right colon/cecum with the t.i. coming into cecum inferolateral. Using the LigaSure I divided the mesoappendix all the way up to the base of the appendix at the level of the cecum. I passed the stapler across the base of the appendix and divided the appendix off the cecum. It was placed in an Endo Catch bag and removed from the abdominal cavity. The specimen was passed off the back table and placed in formalin. The 12 mm port site was then closed with 0 Vicryl in the fascia using a Tayo- Guille. I rechecked for hemostasis in the right lower quadrant and it was excellent. The staple line looked perfect and hemostatic. I released/evacuated the pneumoperitoneum and then removed the other 5 mm trocar. The skin was closed with running Monocryl and Dermabond was placed on top of each site. Patient tolerated the procedure well. The sponge, instruments and sharps counts were correct x3 at the end of the procedure. She was extubated and taken to the PACU in hemodynamically stable condition.
[2024-02-20] MEDS: Lactated Ringers 1,000 ML 125 ML IV (02:05)
[2024-02-20] MEDS: Heparin 5,000 UNITS/ML VIAL 5000 UNITS SC (03:39)
[2024-02-20] MEDS: PIPERACILLIN/TAZO 3.375 GM in Normal Saline 50 ML IVPB ×2 (03:39→09:59)
[2024-02-20] MEDS: MORPHine 2 MG/ML SYR IVP (03:46)
[2024-02-20 08:02] VITALS: BP 133/94; PULSE 73; RESP 16; TEMP 36.9; O2SAT 93
--- NOTE | 2024-02-20 09:07 | W.ANESPOSTOP ---
Postoperative Evaluation Date, Time and Location Date Performed: 02/20/24 Time Performed: 09:07 Patient Location: Med/Surg Vital Signs Most Recent Imported Vital Signs: Most Recent Vital Signs Temp Pulse Resp BP Pulse Ox 36.9 C 73 16 133/94 H 93 02/20/24 08:02 02/20/24 08:02 02/20/24 08:02 02/20/24 08:02 02/20/24 08:02 Pain Score Most Recent Pain Score: Most Recent Pain Score Pain Level [Right Upper 3 02/19/24 19:30 Abdomen] Pain Level 3 02/20/24 08:02 Assessment Mental Status: Awake (Alert & Oriented to Patient Baseline) Airway and Respiratory Function: Patent airway with normal (patient baseline) respiratory exam Cardiovascular Function: Hemodynamically Stable Hydration Status: Adequately Hydrated Nausea & Vomiting: No Nausea or Vomiting Pain: Pain is tolerable per patient Peripheral Nerve Block: Patient did not receive a nerve block
--- NOTE | 2024-02-20 10:20 | DSE_ITS ---
Date of service: 02/20/24 Time of Service: 10:20 DS: Diagnosis Discharge Diagnosis (1) Acute appendicitis: Status: Acute Discharge Plan Disposition Patient Disposition: Home Condition: Stable Condition: Good Discharge Details Reason For Visit: Acute Appendicitis Admit Date/Time: 02/19/24 09:09 Admit Provider: Anthony Tucker Attending Provider: Anthony Tucker Primary Care Provider: Rosanna Godinez V Hospital Course Hospital Course: 43-year-old woman presented to ER with abdominal pain. She was found to have acute appendicitis on imaging. She was taken the operating room and laparoscopic appendectomy performed. Her procedure went well. She was kept overnight for observation and discharged the next morning. Home Meds and New Rx's Prescriptions: No Action montelukast 10 mg tablet 10 mg PO QPM albuterol sulfate [ProAir HFA] 90 mcg/actuation HFA aerosol inhaler 2 puff inhalation .Q4-6H PRN fluticasone propionate [Flonase Allergy Relief] 50 mcg/actuation spray,suspension 2 spray intranasal DAILY Qty: 16 12RF Rx Instructions: administer into each nostril folic acid 1 mg tablet 1 mg PO DAILY loratadine [Allergy Relief (loratadine)] 10 mg tablet 10 mg PO DAILY Spiriva Respimat 2.5 mcg/actuation mist 2 puff inhalation DAILY cholecalciferol (vitamin D3) 1,000 unit/drop drops 1,000 unit PO HS Patient Comments: Dosing changed per patient 03/09/23 budesonide-formoterol [Symbicort] 160-4.5 mcg/actuation Hfa Aerosol Inhaler 2 puff INHALATION BID Discharge Instructions Additional Instructions: Incisions: Keep clean and dry but they do not need to be covered. It is okay to shower but no tub bathing for 1 week. You can peel the glue off after 1 week. Activity: As tolerated. There are no restrictions. Return to work, as tolerated in the next few days. If you need a work note call the surgery off ce. Diet: Regular diet as tolerated Medications: Resume all of your usual/regular home medications Follow-up: Follow-up is optional. If you are having any issues or concerns call the surgery office immediately. If you want to have a routine follow-up that is perfectly fine and you can call and schedule one. If everything is otherwise going well, you do not need to follow-up. Pain control: Take Tylenol, 1000 mg, every 6 hours on a schedule for the next 3 days. You can use ibuprofen in addition to Tylenol. Overall: Symptoms should not be worsening. If you have any difficulty breathing or you have return of symptoms of brought you to the hospital or your pain is otherwise worsening each day and you should call the doctor's office or come into the hospital to be checked out. Activity:: Activity as Tolerated Equipment/Supplies:: No Equipment Needed Diet:: As Tolerated DS: Summary Time Spent with Patient providing and/or coordinating discharge services: Less than 30 minutes Status at Discharge Functional status at discharge: independent ambulation Overall status at discharge: patient is back to baseline Mental Status: mental status grossly normal Speech and Movement: speech and movement normal Mood: congruent mood Affect: normal affect Quality:SDOH Health Related Social Needs: No Data to Display Exam Narrative Exam Narrative: General: Nontoxic, comfortable and interactive Neuro: Alert and oriented x 3 Psych: Good mood and affect, good insight and understanding into her condition Chest: Nonlabored breathing Heart: Regular Abdomen: Soft, nondistended, appropriate/expected tenderness. Psych Mental Status: mental status grossly normal Speech and Movement: speech and movement normal Mood: congruent mood Affect: normal affect DS: Data Vitals/I&O Vitals and I&O: Vital Signs Temperature 98.4 F 02/20/24 08:02 Temperature Source Skin 02/20/24 08:02 Pulse 73 02/20/24 08:02 Pulse Rhythm Regular 02/20/24 09:32 Pulse 88 02/19/24 17:45 Respiratory Rate 16 02/20/24 08:02 Respiratory Effort Normal, Non-Labored 02/20/24 09:32 Respiratory Depth Normal 02/20/24 09:32 Respiratory Pattern Normal 02/20/24 09:32 Blood Pressure 133/94 H 02/20/24 08:02 Blood Pressure Mean 100 02/19/24 17:45 Blood Pressure Position Supine 02/19/24 07:28 Pulse Oximetry 93 02/20/24 08:02 Respiratory End-tidal CO2 38 02/19/24 17:50 Oxygen Delivery Method Room Air 02/20/24 08:02 Oxygen Flow Rate 0 02/20/24 08:02 Pain Level 3 02/20/24 08:02 Intake & Output 02/19/24 02/19/24 02/20/24 11:59 23:59 11:59 Intake Total 1200 / 2732.500 1532.500 / 2732.500 193.333 / 193.333 Output Total 650 / 650 Balance 1200 / 2082.500 882.500 / 2082.500 193.333 / 193.333 Weight 200 lb 200 lb Intake: IV 1200 / 2482.500 1282.500 / 2482.500 193.333 / 193.333 Oral 250 / 250 Output: Urine 650 / 650 Other: Urine Color Yellow Yellow Urine Appearance Clear Clear Urine Odor None None Emesis Description None Voiding Methods Toilet Toilet PFSH All Active Problems (Updated 02/19/24 @ 08:19 by Don Paez MD) Acute appendicitis (Acute) Patellofemoral syndrome (Acute) Depression (Acute) Anxiety (Acute) BMI 29.0-29.9,adult (Acute) Kidney stones (Acute) Hx of endometriosis (Acute) History of asthma (Acute) Tendinitis of long head of biceps brachii of left shoulder (Acute ~07/2019) Headache, unspecified (Acute) Jaw pain (Acute) Sinusitis, chronic (Acute) Anticipatory grieving (Acute) Plantar fasciitis, bilateral (Acute) Lumbar radiculopathy (Acute) Benign essential HTN (Acute) Tobacco smoker within last 12 months (Acute) Chronic rhinitis (Acute) Mucocele of maxillary sinus (Acute) COVID-19 (Acute) Asthma (Chronic) Medical History (Updated 02/19/24 @ 08:19 by Don Paez MD) Requires supplemental oxygen per pt. states when she sleeps her O2 drops to the 80's and has to wear 2L O2 at night Hypoxemia per pt. states when she sleeps her o2 drops to the 80's and has to wear 2L O2 at night Lipoma of extremity Bursitis of left shoulder Biceps tendonitis on left Raynauds syndrome PTSD (post-traumatic stress disorder) Per pt. states no issues currently History of depression Light tobacco smoker Fatigue Pain in left shoulder Dysmenorrhea (03/24/15) Dyspareunia (02/23/15) Menorrhagia (02/23/15) 7-10d menses Surgical History (Updated 02/20/24 @ 08:32 by Nahed Perry) S/P laparoscopic appendectomy (~02/19/24) S/P excision of lipoma left shoulder S/P QUINTEN-BSO Curettage of endometrium (03/17/15) Dr. Rosenda Mathews Pathologic Diagnosis -Proliferative endometrium with extensive stomal breakdown -Benign fragments of squamous mucosa -No cytologic atypia Family History Mother Asthma Depression Social History Smoking/Tobacco Use Status: Current every day Tobacco Type: cigarettes Smoking risk assessment performed?: Yes Alcohol Intake: current Alcohol Intake frequency: holidays/special occasions only Drug use: Never Substance use type: does not use Housing: house Current gender identity: female Do you feel safe at home: Yes Do you feel safe in your relationship?: Yes Time Spent with Patient Time Spent with Patient: <45 minutes Time was spent: preparing to see the patient(eg.review tests), obtaining and/or reviewing separately otained hiistory, ordering medications,tests, procedures, indepentently interpreting results, counseling the patient, care coordination and other
--- NOTE | 2024-02-20 10:20 | PDOC.CMIN ---
Date of service: 02/20/24 Time of Service: 10:24 Care Management Initial Assmt Initial Assessment Reason for Hospitalization: acute appendicitis Functional Status/Living Situation Town of Residence: [place] Resides with: Spouse Significant Other/Family: Local Natural Supports: , Brian Employment Status: Unemployed Instrumental Activities of Daily Living (ADLs): Independent Medications Medication Management: No Issues/Barriers identified Advance Directives Advance Directives: Do you have an Advance Directive: N 03/27/23 10:00 AD On File at [facility]: N 03/27/23 10:00 Date Asked 02/19/24 02/19/24 13:11 AD Date Reviewed COLST On File at [facility] COLST Date Scanned Code Status Resuscitation Status Full Code Insurance Coverage/Financial Issues Insurance: Health Plans ([facility]) [facility] Care Team Visit Care Team Role Provider Type Rosanna Godinez MD Primary Care Provider [facility] STAFF PHYSICIAN Don Paez MD Emergency Provider [facility] STAFF PHYSICIAN Anthony Tucker MD Admit Provider [facility] STAFF PHYSICIAN Attending Provider Discharge Potential Discharge Needs: Surgical F/U Appt Anticipated Barriers to Discharge: None Identified Patient/Family Education Needs: Review discharge instructions, discuss Ask Me Three Transportation: Private vehicle Plan: Anticipate Milagros will return home once medically cleared. Her will drive her home via private vehicle. She will follow up with her PCP and discharge plan of care. CM will continue to follow. PFSH All Active Problems (Updated 02/19/24 @ 08:19 by Don Paez MD) Acute appendicitis (Acute) Patellofemoral syndrome (Acute) Depression (Acute) Anxiety (Acute) BMI 29.0-29.9,adult (Acute) Kidney stones (Acute) Hx of endometriosis (Acute) History of asthma (Acute) Tendinitis of long head of biceps brachii of left shoulder (Acute ~07/2019) Headache, unspecified (Acute) Jaw pain (Acute) Sinusitis, chronic (Acute) Anticipatory grieving (Acute) Plantar fasciitis, bilateral (Acute) Lumbar radiculopathy (Acute) Benign essential HTN (Acute) Tobacco smoker within last 12 months (Acute) Chronic rhinitis (Acute) Mucocele of maxillary sinus (Acute) COVID-19 (Acute) Asthma (Chronic) Medical History (Updated 02/19/24 @ 08:19 by Don Paez MD) Requires supplemental oxygen per pt. states when she sleeps her O2 drops to the 80's and has to wear 2L O2 at night Hypoxemia per pt. states when she sleeps her o2 drops to the 80's and has to wear 2L O2 at night Lipoma of extremity Bursitis of left shoulder Biceps tendonitis on left Raynauds syndrome PTSD (post-traumatic stress disorder) Per pt. states no issues currently History of depression Light tobacco smoker Fatigue Pain in left shoulder Dysmenorrhea (03/24/15) Dyspareunia (02/23/15) Menorrhagia (02/23/15) 7-10d menses Surgical History (Updated 02/20/24 @ 08:32 by Nahed Perry) S/P laparoscopic appendectomy (~02/19/24) S/P excision of lipoma left shoulder S/P QUINTEN-BSO Curettage of endometrium (03/17/15) Dr. Rosenda Mathews Pathologic Diagnosis -Proliferative endometrium with extensive stomal breakdown -Benign fragments of squamous mucosa -No cytologic atypia Family History Mother Asthma Depression Social History Smoking/Tobacco Use Status: Current every day Tobacco Type: cigarettes Smoking risk assessment performed?: Yes Alcohol Intake: current Alcohol Intake frequency: holidays/special occasions only Drug use: Never Substance use type: does not use Housing: house Current gender identity: female Do you feel safe at home: Yes Do you feel safe in your relationship?: Yes SDOH(Care Management) Screening Will the Patient Participate in the Screening?: Yes Do you worry about having a steady place to live?: no Problems where you live: no known problems In the past 12 months, have you had to go without electric, gas, oil or water in your home?: no Have you or anyone in your house had to go without enough food to eat?: no Has lack of transportation kept you from medical appointments or from doing things needed for daily living?: no Has anyone in your support network made you feel unsafe for any reason?: no
== END 2024-02-20 12:36 | disposition home or self-care (01) ==
LOC: ER 13:09 → MS 13:24
PROVIDERS: Student in an Organized Health Care Education/Training Program; Admitting Provider Student in an Organized Health Care Education/Training Program; Emergency Provider Emergency Medicine; PCP Family Medicine; Visit Provider Student in an Organized Health Care Education/Training Program
PROC: 0DTJ4ZZ Resection of Appendix, Percutaneous Endoscopic Approach (ICD-10-PCS; CPT 44970; principal; 2024-02-19 15:30)
DX: K35.30 Acute appendicitis with localized peritonitis, without perforation or gangrene (principal); Q43.3 Congenital malformations of intestinal fixation; J45.909 Unspecified asthma, uncomplicated; F41.9 Anxiety disorder, unspecified; F32.A Depression, unspecified; J32.9 Chronic sinusitis, unspecified; M54.16 Radiculopathy, lumbar region; I10 Essential (primary) hypertension; Z79.899 Other long term (current) drug therapy; F17.210 Nicotine dependence, cigarettes, uncomplicated; I73.00 Raynaud's syndrome without gangrene
CPT/HCPCS: 44970; 00123; 36415; 80053; 81025; 83690; 96361; 96365; 96366; 96368; 96372; 96375; 99285; 71046; 74177; 81003; 81015; 84703; 85025; 88304; 88361; G0378; J0131; J0665; J1100; J1644; J1885; J2270; J2405; J2543; J2704; J3010; J3490

== ENCOUNTER 2024-04-30 02:49 | Outpatient (CLI) | payer OTHER, SELFPAY ==
--- NOTE | 2024-04-30 | DI.CT_ITS ---
Exam(s) CT CHEST WO EXAM: CT CHEST WO CLINICAL HISTORY: NICOTINE DEPENDENT,f17.210 TECHNIQUE: Imaging Protocol: Axial computed tomography images with coronal and sagittal reformatted images were created and reviewed. Computer aided detection (CAD) was utilized. CONTRAST MATERIAL: Intravenous: Omnipaque 350 Contrast volume:structured data ml. COMPARISON: CT CT CHEST WO from 04/24/2023 FINDINGS: Pulmonary parenchyma: No consolidation. Stable 4 millimeter nodule peripheral right upper lobe. Sta ble bilateral perifissural nodules. No suspicious mass. Minimal emphysematous changes. Tracheobronchial tree: No bronchiectasis or mucous plugging. Mediastinum and Iris: No dominant adenopathy or fluid collection. Pleura: No effusion. No pneumothorax. Heart: The heart is not dilated. No coronary artery calcifications are seen. Aorta: Thoracic aorta non-dilated. Mild atherosclerotic changes. Pulmonary arteries: No gross evidence of emboli. Upper abdomen: No acute findings. Bones: Degenerative changes in the spine. Soft tissues: Unremarkable. IMPRESSION: No acute abnormality.Stable tiny pulmonary nodules. RADIATION DOSE DELIVERED: Total DLP DATA REPOSITORY: All CT scans at this facility are submitted to the National Radiology Data Registry (NRDR) Dose Index Registry (DIR) with the [employer] (ACR). RADIATION OPTIMIZATION: All CT scans at this facility use at least one of these dose optimization te chniques: automated exposure control; mA and/or kV adjustment per patient size (includes targeted exa ms where dose is matched to clinical indication); or iterative reconstruction.
--- NOTE | 2024-04-30 | DI.MAMMO_ITS ---
Exam(s) MAMMO SCREENING EXAM: MAMMO SCREENING CLINICAL HISTORY: Z12.31 Screening TECHNIQUE: Bilateral full field digital CC and MLO mammographic images were obtained with 3D tomosyn thesis and utilizing computer aided detection (CAD). COMPARISON: Available for comparison. FINDINGS: Masses/Architectural Distortion: None seen. Microcalcifications: No suspicious pleomorphic-type are seen. Skin Thickening/Nipple Retraction: None. IMPRESSION: 1. No significant interval change with no specific features of malignancy noted. 2. Unless there is more urgent need, screening mammography is recommended, as per [employer] [place] [employer] guidelines. BI-RADS Category 1 - Negative Breast Density - Category B - Scattered areas of fibroglandular density Breast density category C or D implies that the patient has dense breast tissue. Dense breast tissue is very common and is not abnormal but dense breast tissue can make it harder to find cancer on a ma mmogram. Also, dense breast tissue may increase their breast cancer risk. This information about the result of the mammogram report was provided to the patient to raise their awareness. Use this report when you speak with the patient about their risks for breast cancer, which includes their family hist ory. At that time, you may recommend for more screening tests (Ultrasound or MRI) as they might be us eful based on their risk. A negative radiographic report should not delay biopsy if a dominant or clinically suspicious mass is present. Up to ten percent of cancers are not identified on mammography. A negative report may reinforce clinical impression. Adenosis and dense breasts may obscure an underlying neoplasm. False positive reports average 6 to 10%. Patient will receive a letter notifying them of these results.
== END 2024-04-30 03:09 ==
LOC: DI 02:49
PROVIDERS: PCP Family Medicine; Visit Provider Family Medicine
DX: Z12.31 Encounter for screening mammogram for malignant neoplasm of breast (principal); F17.210 Nicotine dependence, cigarettes, uncomplicated; R92.323 Mammographic fibroglandular density, bilateral breasts
CPT/HCPCS: 71250; 77063; 77067

== ENCOUNTER 2024-08-26 03:45 | Outpatient (CLI) | payer OTHER, SELFPAY ==
[2024-08-26 12:44] LABS: Anion Gap 10.1 mmol/L (3-11); BUN 13 mg/dL (7-18); CO2 25.9 mmol/L (21.0-32.0); CREATININE 1.1 mg/dL (0.55-1.02); Calcium 9.7 mg/dL (8.5-10.1); Chloride 108 mmol/L (98-107); Estimated GFR 64.34 (mL/min/1.73m2); Glucose 91 mg/dL (74-106); Potassium 3.5 mmol/L (3.5-5.1); Sodium 144 mmol/L (136-145)
[2024-08-26 12:55] LABS: Hemoglobin A1C 5.2 % (<5.7)
== END 2024-08-26 03:46 | disposition home or self-care (01) ==
LOC: LOS 03:45
PROVIDERS: PCP Family Medicine; Visit Provider Family Medicine
DX: E66.9 Obesity, unspecified (principal)
CPT/HCPCS: 36415; 80048; 83036

== ENCOUNTER 2024-09-28 16:48 | Observation (INO) | payer OTHER, SELFPAY ==
[2024-09-28 16:49] VITALS: BP 137/97; RESP 20; TEMP 36.4; O2SAT 96
[2024-09-28 16:58] VITALS: BP 137/97; RESP 18; TEMP 36.4; O2SAT 96
--- NOTE | 2024-09-28 17:15 | DI.CT_ITS ---
Exam(s) CT ABDOMEN PELVIS W EXAM: CT ABDOMEN PELVIS W CLINICAL HISTORY: Epigastric abd pain, vomiting TECHNIQUE: Imaging Protocol: Axial computed tomography images with coronal and sagittal reformatted images were created and reviewed. CONTRAST MATERIAL: Intravenous: Omnipaque 350 Contrast volume:75 mL Oral: No COMPARISON: CT CT ABDOMEN PELVIS W from 03/06/[address] ABDOMEN PELVIS W from 02/19/2024 FINDINGS: ABDOMEN: Lung Bases: There is a calcified granuloma in the right lower lobe. Liver: There is decreased attenuation in the liver consistent with fatty infiltration. No suspicious masses are seen. Portal, Superior Mesenteric, and Splenic Veins: Unremarkable. Gallbladder and Biliary Tract: Status post cholecystectomy. No biliary ductal dilatation. Pancreas: Normal density, no abnormal calcifications or inflammatory process. Spleen: Normal. Adrenals: There is a stable right adrenal nodule. This likely reflects an adenoma. No follow-up is recommended. The left adrenal gland is unremarkable. Kidneys: Normal size, contour and axis. No radiodense stones or obstructive uropathy. No masses seen. Abdominal Aorta: Abdominal portion non-dilated. Bowel: The cecum is now located in the right upper quadrant of the abdomen. The cecum measures 5 cm in diameter. (Series 10, image 54). The terminal ileum is of normal caliber. There are mildly dila annabel loops of small bowel in the abdomen particularly in the lower abdomen. There are also fluid-fill ed loops of large bowel. The patient has had a prior appendectomy. With a fluid-filled loops of sma ll bowel and large bowel enteritis/diarrheal illness should be considered. Peritoneal Cavity: No ascites, collection or mesenteric inflammatory response. No free air. Lymph Nodes: Within normal limits. Bones: Within normal limits for the patient's age. Soft Tissues: Unremarkable. PELVIS: Bladder: Symmetric distention, no gross wall thickening. Reproductive Organs: Status post hysterectomy. Lymph Nodes: Within normal limits. Bones: Within normal limits for the patient's age. IMPRESSION: 1. Since the prior examination, the patient has undergone an appendectomy. 2. The cecum is now located in the right upper quadrant of the abdomen. It is fluid-filled. It is w ithin normal limits in size at 5 cm in diameter. While this may be post surgical the possibility of a volvulus should be considered. 3. Mildly dilated loops of small bowel. Fluid-filled loops of small and large bowel. An inflammator y/infectious process or diarrheal illness should be considered. Given the patient's surgical history , small-bowel obstruction should also be considered. 4. No pneumatosis or portal venous gas. No pneumoperitoneum. 5. Findings were discussed with Dr. Saint Vann at 7:15 p.m. on 09/28/2024. RADIATION DOSE DELIVERED: 487.14mGy.cm Total DLP DATA REPOSITORY: All CT scans at this facility are submitted to the National Radiology Data Registry (NRDR) Dose Index Registry (DIR) with the [employer] (ACR). RADIATION OPTIMIZATION: All CT scans at this facility use at least one of these dose optimization te chniques: automated exposure control; mA and/or kV adjustment per patient size (includes targeted exa ms where dose is matched to clinical indication); or iterative reconstruction.
[2024-09-28] MEDS: Ondansetron 4 MG/2 ML VIAL IVP (17:55)
[2024-09-28] MEDS: ACETAMINOPHEN 1,000 MG/100 ML BAG 400 MG IVPB ×2 (17:56→20:40)
[2024-09-28 17:57] LABS: ALT 34 U/L (14-59); AST 27 U/L (15-37); Albumin 5.1 g/dL (3.4-5.0); Alkaline Phosphatase 83 U/L (46-116); Anion Gap 13.4 mmol/L (3-11); BUN 14 mg/dL (7-18); Bilirubin, Total 0.7 mg/dL (0.2-1.0); CO2 24.6 mmol/L (21.0-32.0); CREATININE 1.4 mg/dL (0.55-1.02); Chloride 102 mmol/L (98-107); Estimated GFR 48.17 (mL/min/1.73m2); Glucose 112 mg/dL (74-106); Lipase 58 U/L (<78); Magnesium 2.6 mg/dL (1.8-2.4); Potassium 3.9 mmol/L (3.5-5.1); Sodium 140 mmol/L (136-145); Troponin I 4 ng/L (<or=51)
[2024-09-28] MEDS: Lactated Ringers 1,000 ML 1000 ML IV (17:57)
[2024-09-28 17:58] LABS: Calcium 11.8 mg/dL (8.5-10.1)
--- NOTE | 2024-09-28 18:10 | ED.GENADUL_ITS ---
Discharge Plan Disposition Patient Disposition: Admit to [facility] Condition: Stable Discharge Details Chief Complaint: Abd Prob Clinical Impression: Volvulus, Vomiting Primary Care Provider: Rosanna Godinez V ED Provider: Karma Rodriguez Home Meds and New Rx's Prescriptions: No Action montelukast 10 mg tablet 10 mg PO QPM albuterol sulfate [ProAir HFA] 90 mcg/actuation HFA aerosol inhaler 2 puff inhalation .Q4-6H PRN fluticasone propionate [Flonase Allergy Relief] 50 mcg/actuation spray,suspension 2 spray intranasal DAILY Qty: 16 12RF Rx Instructions: administer into each nostril folic acid 1 mg tablet 1 mg PO DAILY Spiriva Respimat 2.5 mcg/actuation mist 2 puff inhalation DAILY nystatin 100,000 unit/mL suspension 500,000 unit buccal QID Qty: 480 0RF Rx Instructions: administer 1/2 of dose in each side of the mouth, hold in mouth as long as possible, then spit Zepbound 7.5 mg/0.5 mL pen injector 7.5 mg subcut QWEEK cyclobenzaprine 10 mg tablet 10 mg PO HS PRN (Reason: muscle spasm) Qty: 7 0RF cholecalciferol (vitamin D3) 1,000 unit/drop drops 1,000 unit PO HS Patient Comments: Dosing changed per patient 03/09/23 budesonide-formoterol [Symbicort] 160-4.5 mcg/actuation Hfa Aerosol Inhaler 2 puff INHALATION BID HPI General Mode of arrival: ambulatory . Date/Time Provider Initiated Documentation: 09/28/24 16:51 . Limitations to Documentation: no limitations . Information obtained by: patient, family and old records reviewed . HPI Narrative: HPI: This is a 44-year-old female patient with a past medical history significant for total hysterectomy, appendectomy, cholecystectomy, malrotation, on a GLP-1 inhibitor, presenting for evaluation of nausea with vomiting and abdominal pain. The patient reports that her dose of her GLP-1 inhibitor was increased about a month ago, states that she has had some early satiety, and general nausea. For the last few days her nausea has significantly increase, and today around 4 PM she started vomiting every 15 minutes. She reports that her emesis is bilious and appears to have food that she ate several days ago still in it. She states that she has not had any bloody vomit, denies diarrhea or dysuria. No one else in the home is sick with similar symptoms. She reports that she is experiencing crampy abdominal pain in her epigastric region. Last bowel movement today. No fevers or chills, but did feel lightheaded upon standing. Exam: Gen: Awake and alert, appears acutely unwell HEENT: Non-icteric sclera Neck: Supple Lungs: No apparent respiratory distress, normal respiratory effort. CV: Appears well perfused, heart with tachycardic rate but regular rhythm, strong distal pulses Abdomen: Non-distended, soft, tender to palpation in the epigastric region without rigidity, rebound, or guarding. MSK: Moves 4 extremities without apparent limitation in ROM Skin: Visualized skin without rashes, cyanosis. Neuro: Normal Gait, no obvious focal deficits or facial asymmetry. Speaks in full, clear sentences. Psych: Appropriate for situation. MDM: This is a 44-year-old female patient presenting for evaluation of nausea with vomiting and abdominal pain. Differential includes but is not limited to medication effect, gastritis, peptic ulcer disease, pancreatitis, hepatitis, bowel obstruction, malrotation with volvulus. Considered metabolic electrolyte derangements, dehydration, kidney injury. We will obtain laboratory studies to include CBC, CMP, magnesium, and lipase. Will obtain a troponin given the location of pain though I have a low concern for ACS in this patient without other cardiac disease. I will provide the patient with a liter of IV fluids for rehydration as well as Tylenol and Zofran for initial symptomatic management. Given her surgical history we will proceed with CT abdomen pelvis to better characterize any abnormalities. ED Course: I reviewed the patient's laboratory studies, which show no leukocytosis, anemia or thrombocytopenia. Chemistry panel is most notable for hypercalcemia, and an elevation in her creatinine to 1.4, likely in the setting of dehydration. No liver dysfunction, troponin negative, lipase is low. The patient CT scan was reviewed by myself and I did discuss the results with radiology. The patient's cecum, which was located in her pelvis on last scan, is now located in the right upper quadrant, with associated dilated fluid-filled loops of small bowel concerning for volvulus. I reached out to general surgery who has recommended NG tube placement, and has graciously accepted this patient for admission to their service for ongoing workup and management. Transferred to their care without incident, patient remained hemodynamically appropriate throughout her time in the emergency depa rtment. Karma Rodriguez MD Related Data Home Medications ?Medication ?Instructions ?Recorded ?Confirmed cholecalciferol (vitamin D3) 25 1,000 unit PO HS 07/01/19 09/28/24 mcg/drop (1,000 unit/drop) oral drops albuterol sulfate 90 mcg/actuation 2 puff inhalation .Q4-6H PRN 03/01/21 09/28/24 aerosol inhaler (ProAir HFA) montelukast 10 mg tablet 10 mg PO QPM 03/01/21 09/28/24 fluticasone propionate 50 2 spray intranasal DAILY #16 grams 03/15/21 09/28/24 mcg/actuation nasal spray,suspension (Flonase Allergy Relief) folic acid 1 mg tablet 1 mg PO DAILY 06/04/22 09/28/24 tiotropium bromide 2.5 2 puff inhalation DAILY 06/04/22 09/28/24 mcg/actuation mist for inhalation (Spiriva Respimat) budesonide-formoterol HFA 160 2 puff inhalation BID 03/09/23 09/28/24 mcg-4.5 mcg/actuation aerosol inhaler (Symbicort) nystatin 100,000 unit/mL oral 500,000 unit (5 mL) buccal QID 03/27/24 09/28/24 suspension #480 mL cyclobenzaprine 10 mg tablet 10 mg PO HS PRN muscle spasm #7 09/17/24 09/28/24 tabs tirzepatide (weight loss) 7.5 7.5 mg subcut QWEEK 09/17/24 09/28/24 mg/0.5 mL subcutaneous pen injector (Zepbound) Previous Rx's ?Medication ?Instructions ?Recorded fluticasone propionate 50 2 spray intranasal DAILY #16 grams 03/15/21 mcg/actuation nasal spray,suspension (Flonase Allergy Relief) nystatin 100,000 unit/mL oral 500,000 unit (5 mL) buccal QID 03/27/24 suspension #480 mL cyclobenzaprine 10 mg tablet 10 mg PO HS PRN muscle spasm #7 09/17/24 tabs Allergies Allergy/AdvReac Type Severity Reaction Status Date / Time adhesive Allergy Skin Rash Verified 09/28/24 17:02 bupropion AdvReac skin Verified 09/28/24 17:02 crawling General Stated Complaint: Abd Prob DIANNA: 2 Course Vital Signs Vital signs: Vital Signs Temperature 36.4 C L 09/28/24 16:49 Respiratory Rate 20 09/28/24 16:49 Blood Pressure 137/97 H 09/28/24 16:49 Pulse Oximetry 96 09/28/24 16:49 Temperature 36.4 C L 09/28/24 16:58 Temperature Source Oral 09/28/24 16:58 Respiratory Rate 18 09/28/24 16:58 Blood Pressure 137/97 H 09/28/24 16:58 Blood Pressure Position Sitting 09/28/24 16:58 Pulse Oximetry 96 09/28/24 16:58 Oxygen Delivery Method Room Air 09/28/24 16:58 Oxygen Flow Rate 0 09/28/24 16:49 Pain Level 4 09/28/24 17:16 Comment manual HR 100 09/28/24 16:49 Lab/Test Results Lab/Test Results: Laboratory Tests Range/Units 09/28/24 09/28/24 09/28/24 17:35 18:18 20:18 Sodium (136-145) mmol/L 140 Potassium (3.5-5.1) mmol/L 3.9 Chloride (98-107) mmol/L 102 Carbon Dioxide (21.0-32.0) mmol/L 24.6 Anion Gap (3-11) mmol/L 13.4 H BUN (7-18) mg/dL 14 Creatinine (0.55-1.02) mg/dL 1.4 H Est GFR (CKD-EPI 2020) (mL/min/1.73m2) 48.17 Glucose (74-106) mg/dL 112 H Calcium (8.5-10.1) mg/dL 11.8 H* Magnesium (1.8-2.4) mg/dL 2.6 H Total Bilirubin (0.2-1.0) mg/dL 0.7 AST (15-37) U/L 27 ALT (14-59) U/L 34 Alkaline Phosphatase (46-116) U/L 83 Troponin I (<or=51) ng/L 4 Cancelled Cancelled Total Protein (6.4-8.2) g/dL 9.0 H Albumin (3.4-5.0) g/dL 5.1 H Lipase (<78) U/L 58 Medical Decision Making Quality:SDOH Health Related Social Needs: No Data to Display PFSH All Active Problems (Updated 09/28/24 @ 19:57 by Karma Rodriguez MD) Vomiting (Acute) Volvulus (Acute) Patellofemoral syndrome (Acute) Depression (Acute) Anxiety (Acute) BMI 29.0-29.9,adult (Acute) Kidney stones (Acute) Hx of endometriosis (Acute) History of asthma (Acute) Tendinitis of long head of biceps brachii of left shoulder (Acute ~07/2019) Headache, unspecified (Acute) Jaw pain (Acute) Sinusitis, chronic (Acute) Anticipatory grieving (Acute) Plantar fasciitis, bilateral (Acute) Lumbar radiculopathy (Acute) Benign essential HTN (Acute) Tobacco smoker within last 12 months (Acute) Chronic rhinitis (Acute) Mucocele of maxillary sinus (Acute) COVID-19 (Acute) Asthma (Chronic) Medical History Requires supplemental oxygen per pt. states when she sleeps her O2 drops to the 80's and has to wear 2L O2 at night Hypoxemia per pt. states when she sleeps her o2 drops to the 80's and has to wear 2L O2 at night Lipoma of extremity Bursitis of left shoulder Biceps tendonitis on left Raynauds syndrome PTSD (post-traumatic stress disorder) Per pt. states no issues currently History of depression Light tobacco smoker Fatigue Pain in left shoulder Dysmenorrhea (03/24/15) Dyspareunia (02/23/15) Menorrhagia (02/23/15) 7-10d menses Surgical History S/P laparoscopic appendectomy (~02/19/24) S/P excision of lipoma left shoulder S/P QUINTEN-BSO Curettage of endometrium (03/17/15) Dr. Rosenda Mathews Pathologic Diagnosis -Proliferative endometrium with extensive stomal breakdown -Benign fragments of squamous mucosa -No cytologic atypia Family History Mother Asthma Depression Social History Smoking/Tobacco Use Status: Current every day Tobacco Type: cigarettes Smoking risk assessment performed?: Yes Alcohol Intake: current Alcohol Intake frequency: holidays/special occasions only Drug use: Never Substance use type: does not use Housing: house Current gender identity: female Do you feel safe at home: Yes Do you feel safe in your relationship?: Yes
[2024-09-28] MEDS: Omnipaque 350 MG/ML 100 ML BTL 75 ML IJ (18:26)
[2024-09-28 18:32] LABS: Abs Immature Grans 0.05 10^3/uL (0.0-0.06); Absolute Basophil Count 0.08 10^3/uL (0.0-0.2); Absolute Eosinophil Count 0.15 10^3/uL (0.0-0.7); Absolute Lymphocyte Count 3.22 10^3/uL (1.2-3.4); Absolute Monocyte Count 0.61 10^3/uL (0.1-0.8); Absolute Neutrophil Count 6.69 10^3/uL (1.2-6.7); Basophils % 0.7 %; Eosinophils % 1.4 %; HGB 17.5 g/dL (11.2-15.7); Immature Grans % 0.5 %; Lymphocytes % 29.8 %; MCH 31.3 pg (27.0-33.0); MCHC 34.3 % (32.0-36.0); MCV 91 fL (80-95); Monocytes % 5.6 %; RDW 12.2 % (11.7-14.6)
[2024-09-28 18:35] LABS: Diff Comment PLT Morph Reviewed; RBC Morphology Normal
[2024-09-28] MEDS: Lidocaine 2% Jelly 11 ML SYR (20:13)
--- NOTE | 2024-09-28 20:15 | W.SURGCON ---
Date of service: 09/28/24 Time of Service: 20:15 Assessment and Plan Assessment and plan (1) Malrotation cecum: Status: Acute Assessment and plan: 44 yo woman with malrotation and abdominal pain and vomiting. A gastroenteritis in setting of malrotation is the most likely etiology of what is going on acutely. I do not think this is a cecal volvulus but simply the malrotated and free-floating cecum that I found during appendectomy. The typical volvulus of malrotation is mid-gut and there is no closed-loop suspected here. PLAN: NG tube decompression(in case there is an SBO portion of this) and let everything settle down Will discuss the role for urgent SEAN's procedure and various indications to perform one. Again, not convinced this is an acute malrotation problem but an incidental radiographic finding during an acute gastroenteritis. Ideally, the SEAN's procedure shouldn't be done while the abdomen is acutely inflamed. Will monitor, resuscitate, re-hydrate, and see how things evolve clinically. History of Present Illness Narrative: 44 yo woman is well-known to me from prior surgery a year ago. We discussed her malrotation at that time. She presents today with abd discomfort, N and V and CT scan findings of the cecum in the RUQ. The cecum location, changed from prior CT scan, raised concern for volvulus of cecum as a potential diagnosis. She has air/fluid mild distention of both small bowel loops, but also large bowel loops. [facility] All Active Problems (Updated 09/28/24 @ 20:19 by Anthony Tucker MD) Malrotation cecum (Acute) Vomiting (Acute) Volvulus (Acute) Patellofemoral syndrome (Acute) Depression (Acute) Anxiety (Acute) BMI 29.0-29.9,adult (Acute) Kidney stones (Acute) Hx of endometriosis (Acute) History of asthma (Acute) Tendinitis of long head of biceps brachii of left shoulder (Acute ~07/2019) Headache, unspecified (Acute) Jaw pain (Acute) Sinusitis, chronic (Acute) Anticipatory grieving (Acute) Plantar fasciitis, bilateral (Acute) Lumbar radiculopathy (Acute) Benign essential HTN (Acute) Tobacco smoker within last 12 months (Acute) Chronic rhinitis (Acute) Mucocele of maxillary sinus (Acute) COVID-19 (Acute) Asthma (Chronic) Medical History Requires supplemental oxygen per pt. states when she sleeps her O2 drops to the 80's and has to wear 2L O2 at night Hypoxemia per pt. states when she sleeps her o2 drops to the 80's and has to wear 2L O2 at night Lipoma of extremity Bursitis of left shoulder Biceps tendonitis on left Raynauds syndrome PTSD (post-traumatic stress disorder) Per pt. states no issues currently History of depression Light tobacco smoker Fatigue Pain in left shoulder Dysmenorrhea (03/24/15) Dyspareunia (02/23/15) Menorrhagia (02/23/15) 7-10d menses Surgical History S/P laparoscopic appendectomy (~02/19/24) S/P excision of lipoma left shoulder S/P QUINTEN-BSO Curettage of endometrium (03/17/15) Dr. Rosenda Mathews Pathologic Diagnosis -Proliferative endometrium with extensive stomal breakdown -Benign fragments of squamous mucosa -No cytologic atypia Family History Mother Asthma Depression Social History Smoking/Tobacco Use Status: Current every day Tobacco Type: cigarettes Smoking risk assessment performed?: Yes Alcohol Intake: current Alcohol Intake frequency: holidays/special occasions only Drug use: Never Substance use type: does not use Housing: house Current gender identity: female Do you feel safe at home: Yes Do you feel safe in your relationship?: Yes Exam Narrative Exam Narrative: Reportedly not toxic, but uncomfortable. Abdomen is reportedly soft without significant tenderness. Results Last Vital Signs Temp 97.5 F L 09/28/24 16:58 Resp 18 09/28/24 16:58 BP 137/97 H 09/28/24 16:58 Pulse Ox 96 09/28/24 16:58 Labs 09/28/24 17:35 09/28/24 17:35 Labs: Laboratory Results - last 24 hr 09/28/24 09/28/24 09/28/24 17:35 18:18 20:18 WBC 10.80 RBC 5.60 H Hgb 17.5 H Hct 51.0 H MCV 91 MCH 31.3 MCHC 34.3 RDW 12.2 Plt Count MPV Immature Gran % 0.5 Neutrophils % 62.0 Lymphocytes % 29.8 Monocytes % 5.6 Eosinophils % 1.4 Basophils % 0.7 Nucleated RBC % 0.0 Absolute Neutrophils 6.69 Absolute Lymphocytes 3.22 Absolute Monocytes 0.61 Absolute Eosinophils 0.15 Absolute Basophils 0.08 RBC Morphology Normal Sodium 140 Potassium 3.9 Chloride 102 Carbon Dioxide 24.6 Anion Gap 13.4 H BUN 14 Creatinine 1.4 H Est GFR (CKD-EPI 2020) 48.17 Glucose 112 H Calcium 11.8 H* Magnesium 2.6 H Total Bilirubin 0.7 AST 27 ALT 34 Alkaline Phosphatase 83 Troponin I 4 Cancelled Cancelled Total Protein 9.0 H Albumin 5.1 H Lipase 58
[2024-09-28 20:30] VITALS: BP 137/93; PULSE 91; RESP 14; O2SAT 96
[2024-09-28] MEDS: Heparin 5,000 UNITS/ML VIAL 5000 UNITS SC (20:45)
[2024-09-28 21:40] VITALS: BP 136/103; PULSE 88; RESP 16; TEMP 36.2; O2SAT 99
[2024-09-28] MEDS: Normal Saline Flush 10 ML SYR IVP (21:48)
[2024-09-28] MEDS: Lactated Ringers 1,000 ML 125 ML IV (21:49)
--- NOTE | 2024-09-28 22:37 | W.PC.ACHO ---
Registration Status: Primary Language: Preferred Language: ED Information & Data Chief Complaint Abd Prob 09/28/24 18:12 Other Complaint Nausea/Vomit/Diar 09/28/24 16:49 Triage Note Nauseous for a couple of 09/28/24 16:49 days now. Started vomiting since today around 4 pm. Patient state she has been feeling a little lightheaded today as well. patient is zepbound injection since april, but she has increased the dosage a few weeks now she has been having increased, nausea, bloatedness and flatus. Medical / Surgical History (Last Reviewed 09/18/24 @ 14:25 by DAVID Quiros) Requires supplemental oxygen Hypoxemia Lipoma of extremity Bursitis of left shoulder Biceps tendonitis on left Raynauds syndrome PTSD (post-traumatic stress disorder) History of depression Light tobacco smoker Fatigue Pain in left shoulder Dysmenorrhea (03/24/15) Dyspareunia (02/23/15) Menorrhagia (02/23/15) (Last Reviewed 09/18/24 @ 14:25 by DAVID Quiros) S/P laparoscopic appendectomy (~02/19/24) S/P excision of lipoma S/P QUINTEN-BSO Curettage of endometrium (03/17/15) Most Recent Vital Signs Temperature 36.2 C L 09/28/24 21:40 Temperature Source Tympanic 09/28/24 21:40 Pulse 88 09/28/24 21:40 Pulse Rhythm Regular 09/28/24 21:50 Respiratory Rate 16 09/28/24 21:40 Respiratory Effort Normal, Non-Labored 09/28/24 21:50 Respiratory Depth Normal 09/28/24 21:50 Respiratory Pattern Normal 09/28/24 21:50 Blood Pressure 136/103 H 09/28/24 21:40 Blood Pressure Position Sitting 09/28/24 16:58 Pulse Oximetry 99 09/28/24 21:40 Oxygen Delivery Method Room Air 09/28/24 21:50 Oxygen Flow Rate 0 09/28/24 21:50 Pain Level 0 09/28/24 21:40 Comment pts standing weight at this time is 72.8 KG 09/28/24 22:13 Allergies adhesive Allergy (Verified 09/28/24 17:02) Skin Rash bupropion Adverse Reaction (Verified 09/28/24 17:02) skin crawling Active Medications Generic Name Dose Route Start Last Admin Trade Name Nia PRN Reason Stop Dose Admin Ringer's Solution 1,000 mls @ 125 mls/hr 09/28/24 20:15 09/28/24 21:49 IV 125 mls/hr INFUSION LANA Administration Iohexol 75 ml 09/28/24 18:30 09/28/24 18:26 Omnipaque 350 Mg/Ml 100 Ml Btl IJ 10/28/24 23:59 75 ml DIRECTED LANA Administration Sodium Chloride 0 ml 09/28/24 20:00 09/28/24 21:48 Normal Saline Flush 10 Ml Syr IVP 10 ml BID LANA Administration IV IV Catheter Type [Left Peripheral IV Antecubital] IV Catheter Gauge [Left 20 Antecubital] Diet Orders Category Date Time Status Nothing Per Oral [DIET] Nutrition 09/28/24 Dinner Active Diagnostics 09/28/24 09/28/24 09/28/24 Range/Units 20:18 18:18 17:35 WBC 10.80 (4.4-10.8) 10^3/uL RBC 5.60 H (3.93-5.22) 10^6/uL Hgb 17.5 H (11.2-15.7) g/dL Hct 51.0 H (36.0-46.0) % MCV 91 (80-95) fL MCH 31.3 (27.0-33.0) pg MCHC 34.3 (32.0-36.0) % RDW 12.2 (11.7-14.6) % Plt Count (130-400) 10^3/uL MPV (8.0-11.0) fL Immature Gran % 0.5 % Neutrophils % 62.0 % Lymphocytes % 29.8 % Monocytes % 5.6 % Eosinophils % 1.4 % Basophils % 0.7 % Nucleated RBC % 0.0 (0.0-0.3) % Absolute Neutrophils 6.69 (1.2-6.7) 10^3/uL Absolute Lymphocytes 3.22 (1.2-3.4) 10^3/uL Absolute Monocytes 0.61 (0.1-0.8) 10^3/uL Absolute Eosinophils 0.15 (0.0-0.7) 10^3/uL Absolute Basophils 0.08 (0.0-0.2) 10^3/uL RBC Morphology Normal Sodium 140 (136-145) mmol/L Potassium 3.9 (3.5-5.1) mmol/L Chloride 102 (98-107) mmol/L Carbon Dioxide 24.6 (21.0-32.0) mmol/L Anion Gap 13.4 H (3-11) mmol/L BUN 14 (7-18) mg/dL Creatinine 1.4 H (0.55-1.02) mg/dL Est GFR (CKD-EPI 2020) 48.17 (mL/min/1.73m2) Glucose 112 H (74-106) mg/dL Calcium 11.8 H* (8.5-10.1) mg/dL Magnesium 2.6 H (1.8-2.4) mg/dL Total Bilirubin 0.7 (0.2-1.0) mg/dL AST 27 (15-37) U/L ALT 34 (14-59) U/L Alkaline Phosphatase 83 (46-116) U/L Troponin I Cancelled Cancelled 4 (<or=51) ng/L Total Protein 9.0 H (6.4-8.2) g/dL Albumin 5.1 H (3.4-5.0) g/dL Lipase 58 (<78) U/L Intake and Output - 24 Hour Total 09/28/24 16:48 thru 09/28/24 20:55 Intake Total 1210 Output Total 250 Balance 960 Weight 75.75 kg Intake: IV 1210 Output: Gastric Drainage 250 Right Nare 250 Falls Risk Assessment History of Falls No History 09/28/24 21:50 Contributing Factors No Factors 09/28/24 21:50 Ambulatory Aids Independent 09/28/24 21:50 Tubes/Lines None 09/28/24 21:50 Gait Evaluation No gait disturbance 09/28/24 21:50 Cognition No cognitive impairment 09/28/24 17:16 Fall Total Score 0 09/28/24 21:50 Level of Risk Standard/Low Risk 09/28/24 21:50 Problems (Last Reviewed 09/18/24 @ 14:25 by DAVID Quiros) Malrotation cecum (Acute) v v v v v v v v v Sending and/or Receiving Nurses: Please use comment section below to note any information pertinent to the patient hand-off not included above. Information / Comments: VVS, independent, 16 fr NG tube with 250mls output. LR bolus. CT completed. Report received from: dottie
[2024-09-29] MEDS: Lactated Ringers 1,000 ML 125 ML IV ×2 (05:29→13:45)
[2024-09-29] MEDS: ACETAMINOPHEN 1,000 MG/100 ML BAG 400 MG IVPB ×4 (05:31→22:26)
[2024-09-29] MEDS: Heparin 5,000 UNITS/ML VIAL 5000 UNITS SC ×3 (05:55→22:27)
[2024-09-29 06:10] LABS: HCT 38.6 % (36.0-46.0); HGB 13.2 g/dL (11.2-15.7); MCH 31.4 pg (27.0-33.0); MCHC 34.2 % (32.0-36.0); MCV 92 fL (80-95); MPV 10.9 fL (8.0-11.0); Platelet Count 255 10^3/uL (130-400); RDW 12.3 % (11.7-14.6); RDW-SD 41.1 fL; WBC 7.98 10^3/uL (4.4-10.8)
[2024-09-29 06:41] LABS: Anion Gap 9.8 mmol/L (3-11); BUN 13 mg/dL (7-18); CO2 25.2 mmol/L (21.0-32.0); CREATININE 0.8 mg/dL (0.55-1.02); Chloride 110 mmol/L (98-107); Estimated GFR 94.28 (mL/min/1.73m2); Glucose 77 mg/dL (74-106); Potassium 3.7 mmol/L (3.5-5.1); Sodium 145 mmol/L (136-145)
[2024-09-29 07:47] VITALS: BP 128/90; PULSE 88; RESP 18; TEMP 36.7; O2SAT 97
--- NOTE | 2024-09-29 08:08 | PGE_ITS ---
Date of Service Date of service: 09/29/24 Time of Service: 08:54 Assessment and Plan Assessment and plan (1) Malrotation cecum: Status: Acute Assessment and plan: 44-year-old woman with known malrotation who presented with profuse vomiting, diminished bowel function and cramping intermittent abdominal pain. She is hemodynamically stable and drastically, subjectively improved today and with a benign abdominal exam. She has started having some bowel function. NG tube output is bilious but relatively low?volume overnight. (400cc) I am not convinced she had a true cecal volvulus but may have simply had a partial obstruction situation that seems to be clinically resolving. It is possible this was a GI gastroenteritis issue that started with vomiting and is now going into diarrhea stage. Difficult to know in shape. She certainly did not have severe acute, sudden onset abdominal pain as would be suspected in an acute volvulus situation. I DO think that this may have something to do with a rapid 30 pound weight loss in the last 6 months. Certainly her intra-abdominal mesentery which is already free?floating is probably more floppy with her weight loss. Not sure she needs to be losing weight with a BMI of 26.5. I definitely think it makes sense for her to stop taking this medication under the current objective findings we are dealing with. This may simply be a gastroenteritis problem going on in the setting of malrotation. We know that her cecum and right colon are completely free?floating and not?tethered, and so I think it is likely that any imaging at any given point in time may show it in a different location than previous which will always raise the radiographic suspicion for volvulus or internal hernia . . . but clinical judgment will need to be exercised to know for sure. Regardless of her acute situation right now that is resolving, I do think there is a role for at least considering a [place]'s procedure. Probably does not need to be done on this hospitalization if everything is getting better and going away. Overall plan: Gastrografin challenge, see if contrast is making it into the the colon. I suspect that it will clinically. Discussion on urgent versus outpatient surgical intervention versus second opinion tertiary referral Subjective Subjective Interval history since last seen: Overnight the patient feels drastically improved. She has had some bilious NG tube output. She has also had some diarrhea for the first time. Denies abdominal pain. She does report that she has lost about 30 pounds in the last 4-5 months due to taking semaglutide medication. Exam Narrative Exam Narrative: Gen: Non-toxic, comfortable and interactive Neuro: Alert and oriented x3 Psych: Good mood and affect. Good insight and understanding into condition. Chest: Non-labored breathing, no wheezing, no visible shortness of breath. Heart: Regular Abdomen: Soft, nondistended and nontender. NG tube: 400 cc of bilious output at the bedside Objective Last Vital Signs Temp 98.1 F 09/29/24 07:47 Pulse 88 09/29/24 07:47 Resp 18 09/29/24 07:47 BP 128/90 09/29/24 07:47 Pulse Ox 97 09/29/24 07:47 Laboratory Results - last 24 hr 09/28/24 09/28/24 09/28/24 17:35 18:18 20:18 WBC 10.80 RBC 5.60 H Hgb 17.5 H Hct 51.0 H MCV 91 MCH 31.3 MCHC 34.3 RDW 12.2 Plt Count MPV Immature Gran % 0.5 Neutrophils % 62.0 Lymphocytes % 29.8 Monocytes % 5.6 Eosinophils % 1.4 Basophils % 0.7 Nucleated RBC % 0.0 Absolute Neutrophils 6.69 Absolute Lymphocytes 3.22 Absolute Monocytes 0.61 Absolute Eosinophils 0.15 Absolute Basophils 0.08 RBC Morphology Normal Sodium 140 Potassium 3.9 Chloride 102 Carbon Dioxide 24.6 Anion Gap 13.4 H BUN 14 Creatinine 1.4 H Est GFR (CKD-EPI 2020) 48.17 Glucose 112 H Calcium 11.8 H* Magnesium 2.6 H Total Bilirubin 0.7 AST 27 ALT 34 Alkaline Phosphatase 83 Troponin I 4 Cancelled Cancelled Total Protein 9.0 H Albumin 5.1 H Lipase 58 09/29/24 05:55 WBC 7.98 RBC 4.20 Hgb 13.2 D Hct 38.6 MCV 92 MCH 31.4 MCHC 34.2 RDW 12.3 Plt Count 255 MPV 10.9 Immature Gran % Neutrophils % Lymphocytes % Monocytes % Eosinophils % Basophils % Nucleated RBC % Absolute Neutrophils Absolute Lymphocytes Absolute Monocytes Absolute Eosinophils Absolute Basophils RBC Morphology Sodium 145 Potassium 3.7 Chloride 110 H Carbon Dioxide 25.2 Anion Gap 9.8 BUN 13 Creatinine 0.8 Est GFR (CKD-EPI 2020) 94.28 Glucose 77 Calcium 9.0 Magnesium Total Bilirubin AST ALT Alkaline Phosphatase Troponin I Total Protein Albumin Lipase PAWSS Have you Been Recently Intoxicated or Drunk Within the Last 30 days?: No Have you Ever Experienced Previous Episodes of Alcohol Withdrawal?: No Have you ever Experienced Withdrawal Seizures?: No Have you ever Experienced Delirium Tremens(DT)s?: No Have you ever undergone Alcohol Rehabilitation Treatment (i.e, inpt ot outpatient treatment programs)?: No Have you ever Experienced Blackouts?: No Have you ever Combined Alcohol with other Downers within the last 90 days?: No Have you ever Combined Alcohol with any other Substance of Abuse during the last 90 days?: No Positive Blood Alcohol level on Presentation? [PCS.BAL]: No Evidence of Increased Autonomic Activity (i.e. HR>120, tremor, sweating, ag itation, nausea)?: No Result: 0 Time Spent with Patient Time Spent with Patient: 25-34 minutes Time was spent: preparing to see the patient(eg.review tests), obtaining and/or reviewing separately otained hiistory, ordering medications,tests, procedures, referring, communicating with other health healthcare advisory services manager, indepentently interpreting results, counseling the patient and care coordination
[2024-09-29] MEDS: Tiotropium Bromide-Respimat 10 PUFF INH 2 PUFF IH (08:24)
[2024-09-29] MEDS: Budesonide/Formoterol 160/4.5 6 GM 60 PUFF INH IH ×2 (08:25→20:46)
--- NOTE | 2024-09-29 09:43 | PHA.REVIEW2 ---
Pharmacy Admission Review Admission Clinical Review Admission Pharmacy Review: Malrotation cecum (Acute) adhesive Allergy (Verified 09/28/24 17:02) Skin Rash bupropion Adverse Reaction (Verified 09/28/24 17:02) skin crawling Resuscitation Status Full Code Height 5 ft 6.5 in Weight 75.75 kg Pharmacy Admission Review Renal Dosing Renal Dosing: BUN 13 mg/dL (7-18) 09/29/24 05:55 Creatinine 0.8 mg/dL (0.55-1.02) 09/29/24 05:55 Medications needing adjustments: Reviewed (CrCl 96.27 mL/min, SCr decreased from 1.4) List of meds needing interventions: Current medications are okay Anticoagulation Anticoagulation: Hgb 13.2 g/dL (11.2-15.7) D 09/29/24 05:55 Hct 38.6 % (36.0-46.0) 09/29/24 05:55 Plt Count 255 10^3/uL (130-400) 09/29/24 05:55 Creatinine 0.8 mg/dL (0.55-1.02) 09/29/24 05:55 DVT Prophylaxis: Reviewed (Hgb decreased from 17.5) Medications: Heparin (q8h) Opiate Usage Evaluate Pain Scale/Pains Meds: Reviewed (morphine 2mg IVP q2h PRN - no doses given) Scheduled Bowel Reg ordered if on Opiates?: No Relevant Labs Relevant Labs: Sodium 145 mmol/L (136-145) 09/29/24 05:55 Potassium 3.7 mmol/L (3.5-5.1) 09/29/24 05:55 Chloride 110 mmol/L (98-107) H 09/29/24 05:55 Magnesium 2.6 mg/dL (1.8-2.4) H 09/28/24 17:35 Electrolytes, C-Reactive P, ESR: Reviewed (calcium decreased from 11.8 to 9) Cardiac Review Cardiac Review: Troponin I Cancelled 09/28/24 20:18 BP, HR, EF%: Reviewed (BP and HR WNL) QTc Review QTc: Reviewed (No EKG on file) IV to PO Switch IV Medications: Reviewed (acetaminophen and morphine - currently NPO) Home Meds Home Med List reviewed: Reviewed Relevent Home Meds Not ordered & why?: vitamin D3, montelukast, nystatin oral suspension and Zepbound (on hold - per progress note provider unsure if patient even needs this) Patient has NG tube and is currently NPO pending potential procedure Current Meds Current Medication Order Review: Intervened Comments: Changed IV ED access order
[2024-09-29] MEDS: Gastrografin 120 ML BTL PO (10:27)
--- NOTE | 2024-09-29 15:00 | DI.RAD_ITS ---
Exam(s) XR ABDOMEN FLAT PLATE EXAM: 2D digital imaging was performed. CLINICAL HISTORY: assess for contrast into the R colon. COMPARISON: CT CT ABDOMEN PELVIS W from 09/28/2024 TECHNIQUE: Upright views of the abdomen performed. FINDINGS: BOWEL GAS PATTERN: There is a nasogastric tube projecting in the stomach. Oral contrast has been adm inistered. Contrast opacifies the small bowel well as along the large bowel to the level of the rect um. No abnormal distended loops are seen. There are surgical clips projecting in the right upper qu adrant related to cholecystectomy. OSSEOUS STRUCTURES: Unremarkable for age. OTHER FINDINGS: The lung bases are clear. IMPRESSION: 1. Nonobstructive bowel gas pattern. 2. The administered oral contrast extends from mid small bowel through to the rectum. DATA REPOSITORY: RADIATION DOSE DELIVERED:
--- NOTE | 2024-09-29 15:20 | CHAPLAIN ---
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 She became sick at work yesterday and began throwing up, she said. She as admitted last night through the ED. She said she's feeling some better today but is tired and got little sleep because of her NG tube. She is being seeing by Dr. Tucker, who also took her appendix out, so Milagros said she is familiar with him. Milagros's was with her when I stopped in.
[2024-09-29 15:44] VITALS: BP 123/88; PULSE 99; RESP 20; TEMP 36.6; O2SAT 97
--- NOTE | 2024-09-29 16:30 | INITIAL_ITS ---
Date of service: 09/29/24 Time of Service: 16:30 Care Management Initial Assmt Initial Assessment Reason for Hospitalization: malrotation of the cecum Functional Status/Living Situation Patient Presentation: Milagros presented to the ED yesterday evening with nausea and vomiting of bilious emesis, and c/o abdominal cramping. She has a know history of malrotation. She is on a GLP-1, and thought her nausea was due to that medication, but she began vomiting every 15 minutes or so, and went to the ED. Today Milagros was sitting up in the bed when CM met with her. , Amrit, was also present. Milagros had just come back from a CT scan. She was pleasant. Stated she was feeling much better, even a little hungry, and was hoping to get her NGT removed. Dr. Tucker came in while CM while still there. CT scan was as expected. Milagros was to have her NGT removed, and will be ordered clear liquids for dinner, with real food for breakfast, then likely home. Milagros will need to f/u with surgery as outpatient. Milagros and Amrit were pleased with this plan. 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) Instrumental Activities of Daily Living (ADLs): Independent Activities/Hobbies/SocialSupport: likes to read Medications Medication Management: No Issues/Barriers identified Advance Directives Advance Directives: Do you have an Advance Directive: N 03/27/23 10:00 AD On File at [facility]: N 03/27/23 10:00 Date Asked 09/28/24 09/28/24 21:39 AD Date Reviewed COLST On File at [facility] COLST Date Scanned Code Status Resuscitation Status Full Code Insurance Coverage/Financial Issues Insurance: Health Plans ([facility] [facility] ONLY!) Care Team Visit Care Team Role Provider Type Rosanna Godinez MD Primary Care Provider [facility] STAFF PHYSICIAN Karma Rodriguez MD Emergency Provider [facility] STAFF PHYSICIAN Anthony Tucker MD Admit Provider [facility] STAFF PHYSICIAN Attending Provider Discharge Potential Discharge Needs: PCP F/U Appt and Surgical F/U Appt Anticipated Barriers to Discharge: None Identified Patient/Family Education Needs: Review discharge instructions, discuss Ask Me Three Transportation: Private vehicle Plan: Anticipate that Milagros will be discharged home with no new services. She will require a return to work letter. Milagros will f/u with her PCP and the surgeon and continue per her plan of care. CM will continue to follow. Social Determinants of Health Screening Social Determinants of Health last assessed: 09/29/24 Will the Patient Participate in the Screening?: Yes Do you worry about having a steady place to live?: no Problems where you live: pests such as bugs, ants or mice and other In the past 12 months, have you had to go without electric, gas, oil or water in your home?: no Have you or anyone in your house had to go without enough food to eat?: no Has lack of transportation kept you from medical appointments or from doing things needed for daily living?: yes Has anyone in your life made you feel unsafe or unsupported?: yes How hard is it for you to pay for the very basics like food, housing, medical care, and heating? Would you say it is:: Not hard at all Do you want help finding or keeping work or a job?: I do not need or want help If for any reason you need help with day-to-day activities such as bathing, preparing meals, shopping, managing finances, etc., do you get the help you need?: I don?t need any help How often do you feel lonely or isolated from those around you?: Sometimes Do you speak a language other than Belgian at home?: No Does the patient want assistance with any of the above?: No Health Related Social Needs Health related social needs: inadequate housing (Z59.1), food insecurity (Z59.41), transportation insecurity (Z59.82) and feeling lonely/isolated (Z60.8) [facility] All Active Problems (Updated 09/28/24 @ 21:39 by TESSA ALICIA) Malrotation cecum (Acute) Vomiting (Acute) Volvulus (Acute) Patellofemoral syndrome (Acute) Depression (Acute) Anxiety (Acute) BMI 29.0-29.9,adult (Acute) Kidney stones (Acute) Hx of endometriosis (Acute) History of asthma (Acute) Tendinitis of long head of biceps brachii of left shoulder (Acute ~07/2019) Headache, unspecified (Acute) Jaw pain (Acute) Sinusitis, chronic (Acute) Anticipatory grieving (Acute) Plantar fasciitis, bilateral (Acute) Lumbar radiculopathy (Acute) Benign essential HTN (Acute) Tobacco smoker within last 12 months (Acute) Chronic rhinitis (Acute) Mucocele of maxillary sinus (Acute) COVID-19 (Acute) Asthma (Chronic) Medical History Requires supplemental oxygen per pt. states when she sleeps her O2 drops to the 80's and has to wear 2L O2 at night Hypoxemia per pt. states when she sleeps her o2 drops to the 80's and has to wear 2L O2 at night Lipoma of extremity Bursitis of left shoulder Biceps tendonitis on left Raynauds syndrome PTSD (post-traumatic stress disorder) Per pt. states no issues currently History of depression Light tobacco smoker Fatigue Pain in left shoulder Dysmenorrhea (03/24/15) Dyspareunia (02/23/15) Menorrhagia (02/23/15) 7-10d menses Surgical History S/P laparoscopic appendectomy (~02/19/24) S/P excision of lipoma left shoulder S/P QUINTEN-BSO Curettage of endometrium (03/17/15) Dr. Rosenda Mathews Pathologic Diagnosis -Proliferative endometrium with extensive stomal breakdown -Benign fragments of squamous mucosa -No cytologic atypia Family History Mother Asthma Depression Social History Smoking/Tobacco Use Status: Current every day Tobacco Type: cigarettes Smoking risk assessment performed?: Yes Alcohol Intake: current Alcohol Intake frequency: holidays/special occasions only Drug use: Never Substance use type: does not use Housing: house Current gender identity: female Do you feel safe at home: Yes Do you feel safe in your relationship?: Yes Readmission Within the Past 30 Days Yes or No: No
[2024-09-29 19:15] VITALS: BP 122/87; PULSE 90; RESP 20; TEMP 36.6; O2SAT 98
[2024-09-30] MEDS: ACETAMINOPHEN 1,000 MG/100 ML BAG 400 MG IVPB (05:26)
[2024-09-30] MEDS: Heparin 5,000 UNITS/ML VIAL 5000 UNITS SC (05:27)
[2024-09-30 06:56] LABS: Anion Gap 11.2 mmol/L (3-11); BUN 8 mg/dL (7-18); CO2 23.8 mmol/L (21.0-32.0); CREATININE 0.8 mg/dL (0.55-1.02); Calcium 9.1 mg/dL (8.5-10.1); Chloride 107 mmol/L (98-107); Estimated GFR 94.28 (mL/min/1.73m2); Glucose 71 mg/dL (74-106); Potassium 3.5 mmol/L (3.5-5.1); Sodium 142 mmol/L (136-145)
--- NOTE | 2024-09-30 07:45 | DSE_ITS ---
Date of service: 09/30/24 Time of Service: 08:11 DS: Diagnosis Discharge Diagnosis (1) Malrotation cecum: Status: Acute Asessment and Plan: Stable. No abdominal pain. No more vomiting. Good bowel function. Tolerating a diet and ready for discharge home. She will follow-up with us outpatient. Discharge Plan Disposition Patient Disposition: Home Condition: Good Discharge Details Reason For Visit: abd pain Admit Date/Time: 09/28/24 20:06 Admit Provider: Anthony Tucker Attending Provider: Anthony Tucker Primary Care Provider: Rosanna Godinez V Hospital Course Hospital Course: 44-year-old woman well-known to us with a history of malrotation presented with vomiting cramping abdominal discomfort and concerns about possible cecum volvulus. An NG tube decompressed her in the next day she was feeling completely better and a Gastrografin study showed contrast through the entire small bowel and colon to rectum. Her subjective complaints went away as did her vomiting. She started tolerating a diet and felt completely better. She was discharged the next day with plans for outpatient follow-up. She was counseled and recommended to get a second opinion for malrotation surgery (a [place]'s procedure) with pediatric surgery in [place]. She was counseled to STOP taking her semaglutide medication. Home Meds and New Rx's Prescriptions: Continued montelukast 10 mg tablet 10 mg PO QPM albuterol sulfate [ProAir HFA] 90 mcg/actuation HFA aerosol inhaler 2 puff inhalation .Q4-6H PRN fluticasone propionate [Flonase Allergy Relief] 50 mcg/actuation spray,suspension 2 spray intranasal DAILY Qty: 16 12RF Rx Instructions: administer into each nostril folic acid 1 mg tablet 1 mg PO DAILY Spiriva Respimat 2.5 mcg/actuation mist 2 puff inhalation DAILY nystatin 100,000 unit/mL suspension 500,000 unit buccal QID Qty: 480 0RF Rx Instructions: administer 1/2 of dose in each side of the mouth, hold in mouth as long as possible, then spit cholecalciferol (vitamin D3) 1,000 unit/drop drops 1,000 unit PO HS Patient Comments: Dosing changed per patient 03/09/23 budesonide-formoterol [Symbicort] 160-4.5 mcg/actuation Hfa Aerosol Inhaler 2 puff INHALATION BID Discontinued Zepbound 7.5 mg/0.5 mL pen injector 7.5 mg subcut QWEEK Discharge Instructions Additional Instructions: INSTRUCTIONS: Activity: As tolerated. Diet: Regular diet as tolerated. Medications: Resume all of your usual/regular home medications. Follow-up: If you are having any issues or concerns call the surgery office immediately. Call to schedule an elective follow-up appointment at your convenience if and when desired. Pain control: There should be no further pain and you should not need pain medicine. Overall: Symptoms should not be worsening. If you have any difficulty breathing or you have return of symptoms of brought you to the hospital or your pain is otherwise worsening each day and you should call the doctor's office or come into the hospital to be checked out. Activity:: Activity as Tolerated Equipment/Supplies:: No Equipment Needed Diet:: As Tolerated DS: Summary Time Spent with Patient providing and/or coordinating discharge services: Less than 30 minutes Status at Discharge Functional status at discharge: independent ambulation Overall status at discharge: patient is back to baseline Mental Status: mental status grossly normal Speech and Movement: speech and movement normal Mood: congruent mood Affect: normal affect Quality:SDOH Health Related Social Needs: Health related social needs inadequate housing (Z59.1) , food insecurity (Z59.41), transportation insecurity (Z59.82), feeling lonely/isolated (Z60.8) Exam Narrative Exam Narrative: Gen: Non-toxic, comfortable and interactive Neuro: Alert and oriented x3 Psych: Good mood and affect. Good insight and understanding into condition. Chest: Non-labored breathing, no wheezing, no visible shortness of breath. Heart: Regular Abdomen: Soft, nontender and nondistended. Completely benign. Psych Mental Status: mental status grossly normal Speech and Movement: speech and movement normal Mood: congruent mood Affect: normal affect DS: Data Vitals/I&O Vitals and I&O: Vital Signs Temperature 97.9 F 09/29/24 19:15 Temperature Source Tympanic 09/29/24 19:15 Pulse 90 09/29/24 19:15 Pulse Rhythm Regular 09/28/24 21:50 Respiratory Rate 20 09/29/24 19:15 Respiratory Effort Normal, Non-Labored 09/28/24 21:50 Respiratory Depth Normal 09/28/24 21:50 Respiratory Pattern Normal 09/28/24 21:50 Blood Pressure 122/87 09/29/24 19:15 Blood Pressure Position Sitting 09/28/24 16:58 Pulse Oximetry 98 09/29/24 19:15 Oxygen Delivery Method Room Air 09/29/24 19:15 Oxygen Flow Rate 0 09/29/24 19:15 Pain Level 0 09/29/24 19:15 Comment pts standing weight at this time is 72.8 KG 09/28/24 22:13 Intake & Output 09/29/24 09/29/24 09/30/24 11:59 23:59 11:59 Intake Total 1058.333 / 4258.333 3200 / 4258.333 100 / 100 Output Total 300 / 300 Balance 758.333 / 3958.333 3200 / 3958.333 100 / 100 Intake: IV 1058.333 / 3358.333 2300 / 3358.333 100 / 100 Oral 0 / 900 900 / 900 Output: Gastric Drainage 300 / 300 Right Nare 300 / 300 Other: Urine Color Light Sybil Yellow Urine Appearance Clear Clear Urine Odor Normal None Comment Patient voided ind. in the toilet. Independent Stool Size Small Stool Characteristics Soft Formed Data Completed and Pending Labs on day of discharge: Labs from last 24 hours 09/30/24 05:57 Sodium 142 Potassium 3.5 Chloride 107 Carbon Dioxide 23.8 Anion Gap 11.2 H BUN 8 Creatinine 0.8 Est GFR (CKD-EPI 2020) 94.28 Glucose 71 L Calcium 9.1 PFSH All Active Problems (Updated 09/28/24 @ 21:39 by TESSA ALICIA) Malrotation cecum (Acute) Vomiting (Acute) Volvulus (Acute) Patellofemoral syndrome (Acute) Depression (Acute) Anxiety (Acute) BMI 29.0-29.9,adult (Acute) Kidney stones (Acute) Hx of endometriosis (Acute) History of asthma (Acute) Tendinitis of long head of biceps brachii of left shoulder (Acute ~07/2019) Headache, unspecified (Acute) Jaw pain (Acute) Sinusitis, chronic (Acute) Anticipatory grieving (Acute) Plantar fasciitis, bilateral (Acute) Lumbar radiculopathy (Acute) Benign essential HTN (Acute) Tobacco smoker within last 12 months (Acute) Chronic rhinitis (Acute) Mucocele of maxillary sinus (Acute) COVID-19 (Acute) Asthma (Chronic) Medical History Requires supplemental oxygen per pt. states when she sleeps her O2 drops to the 80's and has to wear 2L O2 at night Hypoxemia per pt. states when she sleeps her o2 drops to the 80's and has to wear 2L O2 at night Lipoma of extremity Bursitis of left shoulder Biceps tendonitis on left Raynauds syndrome PTSD (post-traumatic stress disorder) Per pt. states no issues currently History of depression Light tobacco smoker Fatigue Pain in left shoulder Dysmenorrhea (03/24/15) Dyspareunia (02/23/15) Menorrhagia (02/23/15) 7-10d menses Surgical History S/P laparoscopic appendectomy (~02/19/24) S/P excision of lipoma left shoulder S/P QUINTEN-BSO Curettage of endometrium (03/17/15) Dr. Rosenda Mathews Pathologic Diagnosis -Proliferative endometrium with extensive stomal breakdown -Benign fragments of squamous mucosa -No cytologic atypia Family History Mother Asthma Depression Social History Smoking/Tobacco Use Status: Current every day Tobacco Type: cigarettes Smoking risk assessment performed?: Yes Alcohol Intake: current Alcohol Intake frequency: holidays/special occasions only Drug use: Never Substance use type: does not use Housing: house Current gender identity: female Do you feel safe at home: Yes Do you feel safe in your relationship?: Yes Time Spent with Patient Time Spent with Patient: 45-69 minutes Time was spent: preparing to see the patient(eg.review tests), obtaining and/or reviewing separately otained hiistory, ordering medications,tests, procedures, indepentently interpreting results, counseling the patient and care coordination
[2024-09-30] MEDS: Budesonide/Formoterol 160/4.5 6 GM 60 PUFF INH IH (08:07)
[2024-09-30] MEDS: Tiotropium Bromide-Respimat 10 PUFF INH 2 PUFF IH (08:07)
[2024-09-30 08:12] VITALS: BP 136/92; PULSE 88; RESP 18; TEMP 36.7; O2SAT 98
[2024-09-30] MEDS: Normal Saline Flush 10 ML SYR IVP (08:23)
[2024-09-30] MEDS: Fluticasone NASAL SPRAY 16 GM BTL NS (08:23)
--- NOTE | 2024-09-30 09:42 | CMDISCH_ITS ---
Date of service: 09/30/24 Time of Service: 09:43 LACE Index Scoring Tool Questions: Length of Stay (in days): 1 Was the patient admitted via the E.D.?: Yes Comorbidities: Chronic Pulmonary Disease E.D. Visits: 1 Answers: Total Score: 7 Risk of Readmission: Low Risk Care Management Discharge Plan Reason for Hospitalization: malrotation of the cecum Discharge Plan: Milagros was discharged home this morning with no new services. She will f/u with the surgeon on 10/08 and with her PCP on 10/09. Milagros was given a return to work note, and that was faxed to [facility] for her. She was transported home in a private vehicle with her . Patient/Family Education Needs: Review of discharge instructions, activity, limitations, and discuss Ask me 3. SDOH Health Related Social Needs: Health related social needs inadequate housing (Z59.1) , food insecurity (Z59.41), transportation insecurity (Z59.82), feeling lonely/isolated (Z60.8)
== END 2024-09-30 08:56 | disposition home or self-care (01) ==
LOC: ER 19:57 → MS 21:39
PROVIDERS: Admitting Provider Student in an Organized Health Care Education/Training Program; Emergency Provider Emergency Medicine; PCP Family Medicine; Visit Provider Student in an Organized Health Care Education/Training Program
DX: R11.2 Nausea with vomiting, unspecified (principal); R10.9 Unspecified abdominal pain; Q43.3 Congenital malformations of intestinal fixation; Z79.899 Other long term (current) drug therapy; F41.9 Anxiety disorder, unspecified; F32.A Depression, unspecified; J45.909 Unspecified asthma, uncomplicated; J32.8 Other chronic sinusitis; I10 Essential (primary) hypertension; M54.16 Radiculopathy, lumbar region; I73.00 Raynaud's syndrome without gangrene; F17.210 Nicotine dependence, cigarettes, uncomplicated
CPT/HCPCS: 36415; 80048; 80053; 83690; 85027; 94640; 96361; 96365; 96366; 96372; 74018; 74177; 83735; 84484; 85025; 94664; G0378; J0131; J1644; J2405; J3490

== ENCOUNTER 2024-11-25 07:17 | Inpatient (IN) | payer OTHER, SELFPAY ==
[2024-11-25] VITALS (40 sets, daily range): BP systolic 95–157; BP diastolic 57–99; PULSE 71–100; RESP 0–27; TEMP 34.9–37.3; O2SAT 92–100; BMI 27.0
--- NOTE | 2024-11-25 08:05 | W.ANESPRE ---
General Info Date of Service Date Performed: 11/25/24 Height: 5 ft 6.5 in Weight: 77.2 kg Body Mass Index (BMI): 27.0 Surgical Procedure: Operation Date: 11/25/24 08:20 Proposed Procedure Side Surgeon p Hemicolectomy Laparoscopic/SEAN's Procedure Right Anthony Tucker MD Meds Allergies and Home Medications Allergies Allergy/AdvReac Type Severity Reaction Status Date / Time adhesive Allergy Skin Rash Verified 11/25/24 07:35 bupropion AdvReac skin Verified 11/25/24 07:35 crawling Home Medication ?Medication ?Instructions ?Recorded cholecalciferol (vitamin D3) 25 1,000 unit PO HS 07/01/19 mcg/drop (1,000 unit/drop) oral drops albuterol sulfate 90 mcg/actuation 2 puff inhalation .Q4-6H PRN 03/01/21 aerosol inhaler (ProAir HFA) montelukast 10 mg tablet 10 mg PO QPM 03/01/21 fluticasone propionate 50 2 spray intranasal DAILY #16 grams 03/15/21 mcg/actuation nasal spray,suspension (Flonase Allergy Relief) folic acid 1 mg tablet 1 mg PO DAILY 06/04/22 tiotropium bromide 2.5 2 puff inhalation DAILY 06/04/22 mcg/actuation mist for inhalation (Spiriva Respimat) budesonide-formoterol HFA 160 2 puff inhalation BID 03/09/23 mcg-4.5 mcg/actuation aerosol inhaler (Symbicort) nystatin 100,000 unit/mL oral 500,000 unit (5 mL) buccal QID 03/27/24 suspension #480 mL bisacodyl 5 mg tablet,delayed 5 mg PO ONCE colonscopy bowel prep 10/13/24 release (Dulcolax (bisacodyl)) #8 tabs metronidazole 500 mg tablet 500 mg PO .COMPLEX #8 tabs 10/13/24 neomycin 500 mg tablet 500 mg PO .COMPLEX #8 tabs 10/13/24 ondansetron HCl 8 mg tablet 8 mg PO Q12H #3 tabs 10/13/24 polyethylene glycol 3350 17 238 g PO ONCE colonoscopy prep 10/13/24 gram/dose oral powder #238 grams nicotine 14 mg/24 hr daily 1 patch transdermal DIRECTED 11/24/24 transdermal patch acetaminophen 500 mg tablet 500 mg PO ONCE 11/25/24 (Tylenol Extra Strength) Current Visit Medications: Current Medications Generic Name Dose Route Start Last Admin Trade Name Nia PRN Reason Stop Dose Admin Heparin Sodium (Porcine) 5,000 units 11/25/24 08:00 Heparin 5,000 Units/Ml Vial SC 11/25/24 23:59 PREOP LANA Ringer's Solution 1,000 mls @ 80 mls/hr 11/25/24 06:00 IV 11/25/24 23:59 INFUSION LANA Cefazolin Sodium/Dextrose 2 gm in 50 mls @ 100 mls/hr 11/25/24 06:00 Ancef Duplex IVPB 11/25/24 23:59 PREOP LANA Metronidazole 500 mg in 100 mls @ 100 mls/hr 11/25/24 08:00 Flagyl IVPB 11/25/24 23:59 PREOP LANA IV Miscellaneous Supplies 1 each 11/25/24 06:00 Iv Access IV 11/25/24 23:59 DIRECTED LANA Sodium Chloride 0 ml 11/25/24 06:00 Normal Saline Flush 10 Ml Syr IV 11/25/24 23:59 PRN PRN Sodium Chloride 0 ml 11/25/24 06:00 Normal Saline 10 Ml Vial IJ 11/25/24 23:59 DIRECTED PRN Sterile Water 0 ml 11/25/24 06:00 Water,Injection,Sterile 10 Ml Vial IJ 11/25/24 23:59 DIRECTED PRN PFSH Active Problems Active Problems: Problem Status Onset Code Cecal bascule Acute K56.2 Intestinal malrotation Acute Q43.3 Malrotation cecum Acute Q43.3 Volvulus Acute K56.2 Biliary dyskinesia Resolved K82.8 Asthma Chronic J45.909 COVID-19 Acute U07.1 Mucocele of maxillary sinus Acute J34.1 Chronic rhinitis Acute J31.0 Tobacco smoker within last 12 months Acute F17.200 Benign essential HTN Acute I10 Lumbar radiculopathy Acute M54.16 Plantar fasciitis, bilateral Acute M72.2 Anticipatory grieving Acute F43.20 Sinusitis, chronic Acute J32.9 Jaw pain Acute R68.84 Headache, unspecified Acute R51.9 Tendinitis of long head of biceps brachii of left shoulder Acute ~07/2019 M75.22 History of asthma Acute Z87.09 Hx of endometriosis Acute Z87.42 Kidney stones Acute N20.0 BMI 29.0-29.9,adult Acute Z68.29 Anxiety Acute F41.9 Depression Acute F32.9 Patellofemoral syndrome Acute M22.2X9 Medical History Medical History Requires supplemental oxygen per pt. states when she sleeps her O2 drops to the 80's and has to wear 2L O2 at night Hypoxemia per pt. states when she sleeps her o2 drops to the 80's and has to wear 2L O2 at night Lipoma of extremity Bursitis of left shoulder Biceps tendonitis on left Raynauds syndrome PTSD (post-traumatic stress disorder) Per pt. states no issues currently History of depression Light tobacco smoker Fatigue Pain in left shoulder Dysmenorrhea (03/24/15) Dyspareunia (02/23/15) Menorrhagia (02/23/15) 7-10d menses Surgical History Surgical History Hx laparoscopic cholecystectomy S/P laparoscopic appendectomy (~02/19/24) S/P excision of lipoma left shoulder S/P QUINTEN-BSO Curettage of endometrium (03/17/15) Dr. Rosenda Mathews Pathologic Diagnosis -Proliferative endometrium with extensive stomal breakdown -Benign fragments of squamous mucosa -No cytologic atypia Tobacco Smoking/Tobacco Use Status: Current every day Tobacco Type: cigarettes Smoking cigarettes per day: 6 Alcohol Alcohol Intake: current Alcohol intake frequency: holidays/special occasions only Substance Use Substance use: Never Substance use type: does not use Details: alcohol: t-7, one drink Vital Signs and Lab Results Vital Signs Most Recent Vital Signs in EMR: Most Recent Vital Signs Temp Pulse Resp BP Pulse Ox 36.6 C 94 H 18 129/99 H 96 11/25/24 07:47 11/25/24 07:47 11/25/24 07:47 11/25/24 07:47 11/25/24 07:47 Lab Results Blood Type / Crossmatch: No Data to Display Complete Blood Count: No Data to Display Complete Metabolic Panel: No Data to Display Liver Function Panel: No Data to Display Coagulation Panel: No Data to Display Cardiac Panel: No Data to Display Arterial Blood Gas: No Data to Display Venous Blood Gas: No Data to Display Pancreas Panel: No Data to Display Thyroid Panel: No Data to Display Infectious Disease: No Data to Display Blood Cultures: No Data to Display Toxicology Panel: No Data to Display Panel: No Data to Display Imaging and Studies Imaging and Studies Study information below may be from another EMR and interpreted by another provider. Please see original notes in EMR for more complete details. Pulmonary Function Summary: : positive methacholine, otherwise normal. Anesthesia Assessment and Plan Anesthesia History Personal History: No History of Anesthesia Complications Family History: No Family History of Anesthesia Complications Exercise Tolerance Exercise Tolerance: Metabolic Equivalents>4 Pertinent Negatives Pertinent Negatives: No Major Cardiovascular Symptoms or Complaints and No Major Pulmonary Symptoms or Complaints Cardiac & Pulmonary Exam Cardiac Exam: Normal S1/S2 Heart Sounds Pulmonary Exam: Clear Bilateral Breath Sounds Implantable Cardiac Device Does patient have a Pacemaker or an ICD?: No Airway Exam Known Difficult Airway: No Mallampati Class: 2 Mouth Opening: Normal (> 3cm) Thyromental Distance: Less than 3 cm Neck Range of Motion: Full ROM Neck Circumference: Normal Teeth Condition: Edentulous ASA Classification ASA Score: ASA 2 Emergency Case?: No NPO Status NPO Status: NPO Clears >2 hours, Solids >8 hours Status Status: History of Hysterectomy Anesthesia Plan Resuscitation Status: Full Code Anesthesia Technique: General Anesthesia Airway Planned: Endotracheal Tube Pain Management: Surgeon and patient request nerve block Monitors Used: Standard Monitors and SedLine
[2024-11-25] MEDS: Lactated Ringers 1,000 ML 80 ML IV ×2 (08:15→20:31)
--- NOTE | 2024-11-25 08:18 | W.SURGCON ---
Date of service: 11/25/24 Time of Service: 08:18 Assessment and Plan Assessment and plan (1) Malrotation cecum: Status: Acute Assessment and plan: 44-year-old woman with free?floating right colon that has been causing problems for a long time. We once again went over the indications, the likely benefits and also the possible risks of surgery. In particular we talked about anastomotic leak being the single, largest risk she is at begins. Her smoking?status does increase wound?healing issues as well as anastomosis healing issues. Both her and her understand the risks of surgery but also appreciate the likely benefits and want to proceed. Overall plan: Laparoscopic right hemicolectomy. If any Russ's bands are present, we will lyse them and broaden the mesentery as applicable. The small bowel rotation however seems to be overall, relatively normal. (2) Cecal bascule: Status: Acute History of Present Illness Narrative: No new problems or complaints. Patient does not have true intestinal rotation but rather a free?floating right colon which was the cause of prior cecal volvulus and/or bascule. Plan is for elective right hemicolectomy, lysis of any Russ's bands if they exist. Patient has no new questions. Intra-abdominal surgical history: Cholecystectomy, appendectomy, total abdominal hysterectomy PFSH All Active Problems Cecal bascule (Acute) Intestinal malrotation (Acute) Malrotation cecum (Acute) Volvulus (Acute) Asthma (Chronic) COVID-19 (Acute) Mucocele of maxillary sinus (Acute) Chronic rhinitis (Acute) Tobacco smoker within last 12 months (Acute) Benign essential HTN (Acute) Lumbar radiculopathy (Acute) Plantar fasciitis, bilateral (Acute) Anticipatory grieving (Acute) Sinusitis, chronic (Acute) Jaw pain (Acute) Headache, unspecified (Acute) Tendinitis of long head of biceps brachii of left shoulder (Acute ~07/2019) History of asthma (Acute) Hx of endometriosis (Acute) Kidney stones (Acute) BMI 29.0-29.9,adult (Acute) Anxiety (Acute) Depression (Acute) Patellofemoral syndrome (Acute) Medical History Requires supplemental oxygen per pt. states when she sleeps her O2 drops to the 80's and has to wear 2L O2 at night Hypoxemia per pt. states when she sleeps her o2 drops to the 80's and has to wear 2L O2 at night Lipoma of extremity Bursitis of left shoulder Biceps tendonitis on left Raynauds syndrome PTSD (post-traumatic stress disorder) Per pt. states no issues currently History of depression Light tobacco smoker Fatigue Pain in left shoulder Dysmenorrhea (03/24/15) Dyspareunia (02/23/15) Menorrhagia (02/23/15) 7-10d menses Surgical History Hx laparoscopic cholecystectomy S/P laparoscopic appendectomy (~02/19/24) S/P excision of lipoma left shoulder S/P QUINTEN-BSO Curettage of endometrium (03/17/15) Dr. Rosenda Mathews Pathologic Diagnosis -Proliferative endometrium with extensive stomal breakdown -Benign fragments of squamous mucosa -No cytologic atypia Family History Mother Asthma Depression Social History Smoking/Tobacco Use Status: Current every day Tobacco Type: cigarettes Smoking risk assessment performed?: Yes Alcohol Intake: current Alcohol Intake frequency: holidays/special occasions only Drug use: Never Substance use type: does not use Details: alcohol: t-7, one drink Housing: house Current gender identity: female Do you feel safe at home: Yes Do you feel safe in your relationship?: Yes Additional Social history: [facility] Exam Narrative Exam Narrative: Gen: Non-toxic, comfortable and interactive Neuro: Alert and oriented x3 Psych: Good mood and affect. Good insight and understanding into condition. Chest: Non-labored breathing, no wheezing, no visible shortness of breath. Heart: Regular Abdomen: Soft, nondistended and nontender. She has well?healed midline lower incision. Results Last Vital Signs Temp 97.9 F 11/25/24 07:47 Pulse 94 H 11/25/24 07:47 Resp 18 11/25/24 07:47 BP 129/99 H 11/25/24 07:47 Pulse Ox 96 11/25/24 07:47
[2024-11-25] MEDS: metroNIDAZOLE 500 MG/100 ML BAG 100 MG IVPB (08:22)
[2024-11-25] MEDS: Heparin 5,000 UNITS/ML VIAL 5000 UNITS SC ×3 (08:32→22:05)
[2024-11-25] MEDS: ceFAZolin 2 GM/50 ML BAG IVPB (09:11)
[2024-11-25] MEDS: Bupivacaine 0.25% Pres-Free 30 ML VIAL (09:26)
--- NOTE | 2024-11-25 09:45 | ANES.NERVE_ITS ---
Nerve Block Single Injection Procedure Date and Time Date Performed: 11/25/24 Procedure Start: 08:56 Location Where Procedure Performed Procedure Location: Operating Room Procedure Stop: 09:03 Reason Performed: Postoperative Analgesia Requesting Provider: Anthony Tucker Timeout Performed Timeout Performed: Yes Monitoring Used ECG, Blood Pressure, SpO2 and See EMR for corresponding vital signs Sterility Sterility: Hand Hygiene, Surgical Cap, Surgical Mask, Sterile Gloves and Ch lorhexidine Sedation Given During Procedure Sedation Given (Indicate Dose Given): No Sedation given Patient Mental Status Patient Mental Status: Performed under general anesthesia Nerve Block 1st Nerve Block: Laterality: Bilateral Block Type: TAP Bilateral Ultrasound Image Saved?: Yes Needle / Catheter Used: 100mm SonoPlex II Local Anesthetic Bolus (Indicate Dose Given): Injected in 3-5ml increments after negative blood aspiration, Bupivacaine 0.25% Dose:: 20mL and Exparel Dose:: 20mL Additives (Indicate Dose Given): None Ultrasound: Sterile probe cover and gel used Nerve Stimulator: Not Used Paresthesia: None Procedure Tolerated: No Complications Procedure Outcome: Successful Performed By: Esperanza Ho Supervised By: Mendoza Bundy
--- NOTE | 2024-11-25 10:08 | BOWEL_PTH ---
PATIENT: Milagros Maher LOC: U#:[id number] AGE/SX: 44/F ROOM: [id number] RE11/25/[address]: Anthony Tucker : 1980 BED: A DIS: 11/27/2024 SPEC #: [id number] RECD: 11/25/24 13:06 STATUS: VIOLETA REQ #: [id number] KENSIHA: 11/25/24 10:[address]: Anthony Tucker DEPT: Surgical Specimen RECD BY: Maria Dolores Constantino ENTERED: 11/25/24 13:07 SP TYPE: Bowel OTHR DR: Rosanna Godinez V Tissues: 1 - BOWEL RESECTION(OTHER) Procedures: GROSS AND MICRO LEVEL 5 Comments: [id number]
[2024-11-25] MEDS: Indocyanine green 25 MG VIAL ×2 (10:16→11:05)
[2024-11-25] MEDS: HYDROmorphone 2 MG/ML SYR IVP (12:30)
[2024-11-25] MEDS: Normal Saline 10 ML VIAL IJ (12:30)
--- NOTE | 2024-11-25 12:46 | W.PM.OP ---
Operative Note Operative Note Refer to Anesthesia Record Procedure Description: Procedures performed: 1. Laparoscopic right hemicolectomy 2. Laparoscopic Russ's procedure 3. 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 CT scan shows foregut and midgut correctly rotated but with the cecum in numerous, variable locations on various CT scans. Findings: #1. The entire right?colon was free-floating all the way to the middle?colic vessels and root of the mesentery. #2. The remaining transverse and left colons seemed anatomically correct. #3. The ligament of Treitz was confirmed to be in the correct location; which is to say D4 came thru the root of the mesentery/mesocolon on the left-side and under the SMA mesenteric root. #4. Multiple, filmy, transparent adhesions(Louisville's Bands) were interconnecting multiple mid-gut mesentery loops tightly against duodenum D2/D3(c-loop) in the RUQ and posterior and lateral to the right colon and mesenteric root. The entire mesentery could be flipped medial and cephalad exposing (like a Cattell-Braasch) the entire duodenal c-loop which was inappropriately adherent to the base of the mesenteric loops by congenital adhesions (Louisville's bands). I could also visualize this from an anterior approach because the right colon is medial to that, without any attachments anywhere. #5. A right hemicolectomy was performed in typical fashion all the way to the middle colic vessels. #6. All of the Russ's duodenal bands in the right upper quadrant were divided sharply, broadening the associated mesentery very significantly. #7. A hand-sewn, 2-layer ileocolic anastomosis was performed and the mesenteric defect was sutured closed. #8. There were no Louisville's bands in the left hemiabdomen and any of the midgut on that side. #9. ICG confirmed excellent perfusion to both sides of the anastomosis both prior to the creation of it as well as at the very end of the procedure, a second time. Complications: None Estimated Blood Loss: Scant (5cc) Specimens removed: 1. Right hemicolectomy Grafts or implants: none Procedure in detail: Written consent was obtained from the patient who was in agreement with the risks, the benefits and the indications for the procedure. The patient was taken to the operating suite and laid supine on the operating table with arms out. IV antibiotics had been administered and 5000 units of heparin subcutaneous given. Venodynes were in place. General anesthesia was administered which was tolerated very well. Anesthesia performed an image?guided TAP block. Next we tucked the patient's left arm, prepped and draped the abdomen in sterile fashion, performed a timeout and when we were all in agreement we began the procedure. 1/4% Local anesthetic was injected at each incision site. In the left upper quadrant a small stab incision was made and a 5 mm Optiview trocar was used to enter into the abdomen under direct visualization. The liver was inspected and did not appear cirrhotic. No visible lesions. Two more 5mm trochars were placed across the left abdomen under visualization. The patient was placed in Trendelenburg. There were no intra-abdominal adhesions seen anywhere, despite her prior surgeries. There was no obvious fascial defect (hernia) anywhere on her anterior abdominal wall under visualization. The right?colon is laying essentially in the middle of her body. There are many loops of small bowel lateral to this. The transverse colon, the omentum as well as the gastrocolic ligament and the descending colon and sigmoid colon all seem to be in the appropriate locations. I wanted to be sure of all of the anatomy and so identified the ligament of Treitz and this was in its appropriate location coming out of the mesenteric root, just beneath what appears to be the SMA and middle?colic vessels in a very typical and usual anatomical appearance. Absolutely nothing unusual about this location and/or its appearance. At the root of the mesentery, everything else is free?floating. I was able to climb the root of the mesentery, gently and cautiously and it led me directly to the cecum and terminal ileum. Most of the ileum is lateral to this and on the patient's right?side of the body. All of that small bowel is reaching that location from underneath the root of the mesentery. The entire cecum, ascending colon and proximal transverse colon have no attachments anywhere. They are neither attached to the sidewall nor are they attached to the liver anywhere. I was able to take the entire right?colon and drape it up and over into the left upper quadrant as an example of its extensive mobility and laxity. In doing this, the terminal ileum easily goes with it however the proximal and mid- ileum is adherent in the right upper quadrant. Careful inspection here reveals that all of this ileum is actually adherent with thin filmy bands to the duodenal sweep. These are clearly congenital bands and in typical, Russ's bands fashion, they are holding these mesenteric loops tightly medial at their base rendering their associated bowel floppy yet tethered. I was able to bring the right colon back down into the pelvis midline and in doing so was able to approach the same area from an anterior visualization standpoint. Indeed, all of these adhesions can be approached from this side as well leading directly to the duodenal C-sweep again, from above instead of from underneath. At this point I felt I had a good understanding of the anatomy. I was absolutely certain where the SMA was at and its relationship with the middle colic vessels as well as the ligament of Treitz. I felt that the duodenal adhesions were helping retract but was otherwise a very floppy mesentery and so I left them in situ at this point in the case. I started about 5 cm proximal to the ileocecal valve which was easy to identify. Patient has a previous appendectomy, but the staple line of the appendectomy was easy to find and appreciate. Also, the fat on the anti-? mesenteric border of the terminal ileum going into the cecum was easy to find as well. Using a LigaSure I divided the mesentery just proximal to the ileocecal valve and staying close to the colon wall, I divided the mesocolon all the way up to the middle colic vessels. I made sure that I stayed close to the colon wall to avoid any injury to the root of the mesentery considering how unusual her anatomy was. Next I created a mini, mid?line laparotomy incision and placed a wound protector with a cap. Through this, I used a laparoscopic PEDRO stapler and divided the terminal ileum. Hemostasis was excellent. Through the wound protector, I was able to pull out both the stapled terminal ileum as well as the specimen. I divided the mid-? transverse colon at a location where it seemed to have good, normal attachments from the gastrocolic ligament. I divided this sharply, with electrocautery. The bowel appeared very pink and healthy. We performed ICG imaging at this point in the procedure and confirmed that the transected terminal ileum as well as the transected transverse colon had excellent perfusion. In usual fashion I created a hand?sewn, 2?layer, side of ileum to end of the transverse colon anastomosis with PDS suture. This was returned into the peritoneal cavity and I re?insufflated. There was no twisting and the anastomosis lay without any tension whatsoever. Hemostasis was still excellent. I closed the mesenteric defect with a running V-Loc suture to prevent any future internal hernia. Next, I turned my attention to the Louisville's bands in the right upper quadrant. I had very easy access to these from both an anterior as well as a posterior approach. I divided all of them sharply off the duodenum and also some of the inter?loop adhesions that existed here. Doing this drastically and impressively broadened the base of her mesentery in this specific location(estimated to be mid-ileum) The small bowel was able to fall & fill up the right lower quadrant without any noticeable tension anywhere and widely laid out whereas before, it had been clumped. At this point I was satisfied that we had not only completed the intended procedure, but we had also completely widened a large?part of her small?bowel mesentery and everything lay, hemostatic, appearing well?perfused, without tension anywhere. I removed the 5mm ports. The wound protector was removed and PDS suture used to close the fascial defect here. We used sid to close the skin. Sterile dressings were placed. The sponge, instrument and sharps count was correct x3 at the end of the procedure. The patient tolerated the procedure well and was taken to the PACU in hemodynamically stable condition. Date of Procedure: 11/25/24
[2024-11-25] MEDS: ACETAMINOPHEN 1,000 MG/100 ML BAG 400 MG IVPB ×2 (13:45→20:31)
[2024-11-25] MEDS: Normal Saline Flush 10 ML SYR IV ×3 (13:45→23:54)
--- NOTE | 2024-11-25 13:54 | W.PC.ACHO ---
Registration Status: Primary Language: Preferred Language: Medical / Surgical History (Last Reviewed 11/25/24 @ 07:49 by Katherin Bo) Requires supplemental oxygen Hypoxemia Lipoma of extremity Bursitis of left shoulder Biceps tendonitis on left Raynauds syndrome PTSD (post-traumatic stress disorder) History of depression Light tobacco smoker Fatigue Pain in left shoulder Dysmenorrhea (03/24/15) Dyspareunia (02/23/15) Menorrhagia (02/23/15) (Last Reviewed 11/25/24 @ 07:49 by Katherin Bo) Hx laparoscopic cholecystectomy S/P laparoscopic appendectomy (~02/19/24) S/P excision of lipoma S/P QUINTEN-BSO Curettage of endometrium (03/17/15) Most Recent Vital Signs Temperature 35.8 C L 11/25/24 13:31 Temperature Source Temporal Artery Scan 11/25/24 13:31 Pulse 72 11/25/24 13:31 Pulse Rhythm Regular 11/25/24 07:47 Pulse 74 11/25/24 13:21 Respiratory Rate 16 11/25/24 13:31 Respiratory Depth Normal 11/25/24 07:47 Blood Pressure 112/73 11/25/24 13:31 Blood Pressure Mean 86 11/25/24 13:31 Pulse Oximetry 97 11/25/24 13:31 Respiratory End-tidal CO2 24 11/25/24 13:11 Oxygen Delivery Method Room Air 11/25/24 13:31 Oxygen Flow Rate 0 11/25/24 13:31 Pain Level 7 11/25/24 13:31 Allergies adhesive Allergy (Verified 11/25/24 07:35) Skin Rash Pt. states she does not think she is allergic to adhesive any longer bupropion Adverse Reaction (Verified 11/25/24 07:35) skin crawling Active Medications Generic Name Dose Route Start Last Admin Trade Name Freq PRN Reason Stop Dose Admin Heparin Sodium (Porcine) 5,000 units 11/25/24 14:00 11/25/24 13:45 Heparin 5,000 Units/Ml Vial SC 5,000 units Q8H LANA Administration Ringer's Solution 1,000 mls @ 80 mls/hr 11/25/24 06:00 11/25/24 13:29 IV 11/25/24 23:59 Infused INFUSION LANA Infusion Cefazolin Sodium/Dextrose 2 gm in 50 mls @ 100 mls/hr 11/25/24 06:00 11/25/24 09:30 Ancef Duplex IVPB 11/25/24 23:59 Infused PREOP LANA Infusion Acetaminophen 1,000 mg in 100 mls @ 400 mls/hr 11/25/24 14:00 11/25/24 13:45 Ofirmev IVPB 400 mls/hr Q6H LANA Administration Sodium Chloride 0 ml 11/25/24 06:00 11/25/24 13:45 Normal Saline Flush 10 Ml Syr IV 11/25/24 23:59 10 ml PRN PRN Administration Sodium Chloride 0 ml 11/25/24 06:00 11/25/24 12:30 Normal Saline 10 Ml Vial IJ 11/25/24 23:59 9 ml DIRECTED PRN Administration IV IV Catheter Type [Right Hand] Peripheral IV IV Catheter Gauge [Right Hand] 20 Diet Orders Category Date Time Status Regular/Normal [DIET] Nutrition 11/25/24 Lunch Active Intake and Output - 24 Hour Total 10/14/24 08:45 thru 11/25/24 13:29 Intake Total 1150 Balance 1150 Weight 77.2 kg Intake: IV 1150 Other: Emesis Description None Problems (Last Reviewed 11/25/24 @ 07:49 by Katherin Bo) Cecal bascule (Acute) Malrotation cecum (Acute) v v v v v v v v v Sending and/or Receiving Nurses: Please use comment section below to note any information pertinent to the patient hand-off not included above. Information / Comments: patient presented for scheduled hemicolectomy done laprascopically. extensive abdominal surgical hx. Asthma, pt has dentures, recieved 1L LR in OR and PACU, 3 lap sites covered w/ gauze and tape, VS Stable. Order in for clear liquid diet. recieved bilateral nerve block for pain. Report received from: Frida DICKENS in PACU at 1320
--- NOTE | 2024-11-25 14:53 | NUR.NOTE ---
Nursing Note: RN Spoke with provider Lucero Erickson stating that patient needed continous O2 2L via NC especially because patient is stating at 97% on RA,
[2024-11-25] MEDS: Budesonide/Formoterol 160/4.5 6 GM 60 PUFF INH IH (19:08)
[2024-11-25] MEDS: MORPHine 2 MG/ML SYR IVP ×2 (20:30→23:53)
[2024-11-26] MEDS: ACETAMINOPHEN 1,000 MG/100 ML BAG 400 MG IVPB ×2 (02:32→07:34)
[2024-11-26] MEDS: Heparin 5,000 UNITS/ML VIAL 5000 UNITS SC ×3 (06:17→22:08)
[2024-11-26 07:39] LABS: Anion Gap 6.3 mmol/L (3-11); BUN 7 mg/dL (7-18); CO2 25.7 mmol/L (21.0-32.0); CREATININE 0.9 mg/dL (0.55-1.02); Calcium 8.8 mg/dL (8.5-10.1); Chloride 107 mmol/L (98-107); Estimated GFR 81.86 (mL/min/1.73m2); Glucose 102 mg/dL (74-106); Potassium 3.5 mmol/L (3.5-5.1); Sodium 139 mmol/L (136-145)
[2024-11-26 08:00] VITALS: BP 143/97; PULSE 85; RESP 18; TEMP 36.7; O2SAT 97
[2024-11-26] MEDS: Budesonide/Formoterol 160/4.5 6 GM 60 PUFF INH IH ×2 (08:18→20:29)
[2024-11-26] MEDS: Tiotropium Bromide-Respimat 10 PUFF INH 2 PUFF IH (08:18)
--- NOTE | 2024-11-26 09:00 | INITIAL_ITS ---
Date of service: 11/26/24 Time of Service: 09:01 Care Management Initial Assmt Initial Assessment Reason for Hospitalization: Free-floating Cecum, Intra-Abdominal Adhesions Functional Status/Living Situation Patient Presentation: Milagros was lying in bed, when CM arrived. Milagros comes in for a planned surgery, and had it scheduled following her previous admission to [facility]. Today, Milagros states that she is feeling nervous about her return to work date; this will be determined by her surgeon. She states her worry is not having enough time off, for recovery. CM offered a return to work note, pt declined at this time. Per Milagros, after meeting with surgical this morning, she will likely discharge tomorrow; she is agreeable to this plan and is wanting to eat solid foods prior to returning home. Milagros was discharged on 09/30/24, and states not much has changed since then, other than one of her adult children have moved out. CM will continue to follow. 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) Instrumental Activities of Daily Living (ADLs): Independent Activities/Hobbies/SocialSupport: Reading Medications Medication Management: No Issues/Barriers identified Advance Directives Advance Directives: Do you have an Advance Directive: N 10/13/24 14:18 AD On File at [facility]: N 10/13/24 14:18 Date Asked 11/25/24 11/23/24 13:07 AD Date Reviewed COLST On File at [facility] COLST Date Scanned Code Status Resuscitation Status Full Code Portal Pt does not currently have a portal and education provided: Yes Insurance Coverage/Financial Issues Insurance: [facility] ONLY Care Team Visit Care Team Role Provider Type Rosanna Godinez MD Primary Care Provider [facility] STAFF PHYSICIAN Anthony Tucker MD Admit Provider [facility] STAFF PHYSICIAN Attending Provider Discharge Potential Discharge Needs: PCP F/U Appt and Surgical F/U Appt Anticipated Barriers to Discharge: Medical Status Patient/Family Education Needs: Review discharge instructions, discuss Ask Me Three Transportation: Private vehicle Plan: Anticipate that Milagros will be discharged home with no new services. She will not require a return to work letter, at this time. Milagros will f/u with her PCP, surgical team and continue per her plan of care. She will be transported home via private vehicle, by her . CM will continue to follow. Social Determinants of Health Screening Social Determinants of health last assessed in clinic: 11/26/24 Will the Patient Participate in the Screening?: Yes Do you worry about having a steady place to live?: no Problems where you live: no known problems In the past 12 months, have you had to go without electric, gas, oil or water in your home?: no 1. Within the past 12 months, we worried whether our food would run out before we got money to buy more.: Never true 2. Within the past 12 months, the food we bought just didn't last and we didn't have money to get more.: Never true Has lack of transportation kept you from medical appointments or from doing things needed for daily living?: yes Has anyone in your life made you feel unsafe or unsupported?: yes How hard is it for you to pay for the very basics like food, housing, medical care, and heating? Would you say it is:: Not hard at all Do you want help finding or keeping work or a job?: I do not need or want help If for any reason you need help with day-to-day activities such as bathing, preparing meals, shopping, managing finances, etc., do you get the help you need?: I don?t need any help How often do you feel lonely or isolated from those around you?: Sometimes Do you speak a language other than Swedish at home?: No Health Related Social Needs Health related social needs: transportation insecurity (Z59.82) and feeling lonely/isolated (Z60.8) [facility] All Active Problems S/P right hemicolectomy (Acute) Cecal bascule (Acute) Intestinal malrotation (Acute) Malrotation cecum (Acute) Volvulus (Acute) Asthma (Chronic) COVID-19 (Acute) Mucocele of maxillary sinus (Acute) Chronic rhinitis (Acute) Tobacco smoker within last 12 months (Acute) Benign essential HTN (Acute) Lumbar radiculopathy (Acute) Plantar fasciitis, bilateral (Acute) Anticipatory grieving (Acute) Sinusitis, chronic (Acute) Jaw pain (Acute) Headache, unspecified (Acute) Tendinitis of long head of biceps brachii of left shoulder (Acute ~07/2019) History of asthma (Acute) Hx of endometriosis (Acute) Kidney stones (Acute) BMI 29.0-29.9,adult (Acute) Anxiety (Acute) Depression (Acute) Patellofemoral syndrome (Acute) Medical History Requires supplemental oxygen per pt. states when she sleeps her O2 drops to the 80's and has to wear 2L O2 at night Hypoxemia per pt. states when she sleeps her o2 drops to the 80's and has to wear 2L O2 at night Lipoma of extremity Bursitis of left shoulder Biceps tendonitis on left Raynauds syndrome PTSD (post-traumatic stress disorder) Per pt. states no issues currently History of depression Light tobacco smoker Fatigue Pain in left shoulder Dysmenorrhea (03/24/15) Dyspareunia (02/23/15) Menorrhagia (02/23/15) 7-10d menses Surgical History (Updated 11/26/24 @ 10:43 by Anthony Tucker MD) Hx laparoscopic cholecystectomy S/P laparoscopic appendectomy (~02/19/24) S/P excision of lipoma left shoulder S/P QUINTEN-BSO Curettage of endometrium (03/17/15) Dr. Rosenda Mathews Pathologic Diagnosis -Proliferative endometrium with extensive stomal breakdown -Benign fragments of squamous mucosa -No cytologic atypia Family History Mother Asthma Depression Social History Smoking/Tobacco Use Status: Current every day Tobacco Type: cigarettes Smoking risk assessment performed?: Yes Alcohol Intake: current Alcohol Intake frequency: holidays/special occasions only Drug use: Never Substance use type: does not use Details: alcohol: t-7, one drink Housing: house Current gender identity: female Do you feel safe at home: Yes Do you feel safe in your relationship?: Yes Additional Social history: UTAP Readmission Within the Past 30 Days Yes or No: No
--- NOTE | 2024-11-26 10:07 | W.PM.PROGNOT ---
Date of Service Date of service: 11/26/24 Time of Service: 10:08 Assessment and Plan Assessment and plan (1) S/P right hemicolectomy: Status: Acute Assessment and plan: 44-year-old woman is postop day 1 from a laparoscopic right hemicolectomy and [place] procedure. She is hemodynamically stable and doing well. No definitive bowel function yet but she is tolerating a diet and has no distention and no nausea. Her lab work is unremarkable. She is not getting anything IV other than some breakthrough IV pain medication. I did offer to send her home but she feels like she needs another day and to make sure that she is tolerating regular food which I think is acceptable. Overall plan: Regular diet DVT prophylaxis Oral analgesia only Out of bed and ambulate Discharge home tomorrow Subjective Subjective Interval history since last seen: Doing well. No complaints. Has some abdominal discomfort as, but nothing out of the ordinary. She is voiding adequately. She has no nausea. She is tolerating clear liquids. She has not had a bowel feeling yet and is not passing gas that she can tell. Exam Narrative Exam Narrative: Gen: Non-toxic, comfortable and interactive Neuro: Alert and oriented x3 Psych: Good mood and affect. Good insight and understanding into condition. Chest: Non-labored breathing, no wheezing, no visible shortness of breath. Heart: Regular Abdomen: Soft, no distention whatsoever, moderate but expected tenderness. Her dressings are slightly stained but otherwise dry and intact. Objective Last Vital Signs Temp 99.1 F 11/25/24 19:42 Pulse 100 H 11/25/24 20:22 Resp 22 11/25/24 20:22 BP 157/96 H 11/25/24 20:22 Pulse Ox 100 11/25/24 20:22 Laboratory Results - last 24 hr 11/26/24 11/26/24 06:35 08:10 Sodium 139 Cancelled Potassium 3.5 Cancelled Chloride 107 Cancelled Carbon Dioxide 25.7 Cancelled Anion Gap 6.3 Cancelled BUN 7 Cancelled Creatinine 0.9 Cancelled Est GFR (CKD-EPI 2020) 81.86 Cancelled Glucose 102 Cancelled Calcium 8.8 Cancelled Time Spent with Patient Time Spent with Patient: <25 minutes Time was spent: preparing to see the patient(eg.review tests), obtaining and/or reviewing separately otained hiistory, ordering medications,tests, procedures, indepentently interpreting results, counseling the patient and care coordination
--- NOTE | 2024-11-26 11:26 | CHAPLAIN ---
Milagros had surgery yesterday. She said she knew last time she was admitted that she'd need surgery. 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 She's taking sips now, but will advance her diet at lunch. She's very much looking forward to nursing school and shared some details about that.
[2024-11-26] MEDS: oxyCODONE 5 MG TAB PO ×2 (14:29→21:00)
[2024-11-26] MEDS: Acetaminophen 500 MG TAB 1000 MG PO ×2 (14:29→20:57)
--- NOTE | 2024-11-26 16:36 | W.ANESPOSTOP ---
Postoperative Evaluation Date, Time and Location Date Performed: 11/26/24 Time Performed: 16:36 Patient Location: Med/Surg Vital Signs Most Recent Imported Vital Signs: Most Recent Vital Signs Temp Pulse Resp BP Pulse Ox 37.3 C 100 H 22 157/96 H 100 11/25/24 19:42 11/25/24 20:22 11/25/24 20:22 11/25/24 20:22 11/25/24 20:22 Pain Score Most Recent Pain Score: Most Recent Pain Score Pain Level 5 11/26/24 14:29 Assessment Mental Status: Awake (Alert & Oriented to Patient Baseline) Airway and Respiratory Function: Patent airway with normal (patient baseline) respiratory exam Cardiovascular Function: Hemodynamically Stable Hydration Status: Adequately Hydrated Nausea & Vomiting: No Nausea or Vomiting Pain: Pain is Moderate or Severe Postoperative Pain Management: Pain being addressed with medication Peripheral Nerve Block: Other
[2024-11-26 20:26] VITALS: BP 141/96; PULSE 91; RESP 20; TEMP 36.9; O2SAT 96
[2024-11-27] MEDS: Heparin 5,000 UNITS/ML VIAL 5000 UNITS SC (05:48)
[2024-11-27] MEDS: Acetaminophen 500 MG TAB 1000 MG PO (05:48)
--- NOTE | 2024-11-27 07:38 | W.PM.DS.N ---
Date of service: 11/27/24 Time of Service: 12:00 DS: Diagnosis Discharge Diagnosis (1) S/P right hemicolectomy: Status: Acute Asessment and Plan: 44 yo woman POD 2 from lap R edmundo and [facility] procedure. Ready for discharge home Discharge Plan Disposition Patient Disposition: Home Condition: Improving Discharge Details Reason For Visit: Free-Floating Cecum,Intra-Abdominal Adhesions Admit Date/Time: 11/25/24 07:17 Admit Provider: Anthony Tucker Attending Provider: Anthony Tucker Primary Care Provider: Rosanna Godinez V Hospital Course Hospital Course: 44-year-old woman presented for an elective right hemicolectomy because of having a completely unattached right colon, prior cecum volvulus and also concern for possible intestinal malrotation. 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 She did well and on postoperative day 1 was tolerating a diet. Because of pain control she wanted to stay an extra day and on hospital day 2 was set up for discharge home. Home Meds and New Rx's Prescriptions: New tramadol 50 mg tablet 50 mg PO Q8H PRNQty: 9 0RF Rx Instructions: Take 1 tablet by mouth up to every 8 hours if needed for severe pain Continued montelukast 10 mg tablet 10 mg PO QPM albuterol sulfate [ProAir HFA] 90 mcg/actuation HFA aerosol inhaler 2 puff inhalation .Q4-6H PRN fluticasone propionate [Flonase Allergy Relief] 50 mcg/actuation spray,suspension 2 spray intranasal DAILY Qty: 16 12RF Rx Instructions: administer into each nostril folic acid 1 mg tablet 1 mg PO DAILY Spiriva Respimat 2.5 mcg/actuation mist 2 puff inhalation DAILY nystatin 100,000 unit/mL suspension 500,000 unit buccal QID Qty: 480 0RF Rx Instructions: administer 1/2 of dose in each side of the mouth, hold in mouth as long as possible, then spit cholecalciferol (vitamin D3) 1,000 unit/drop drops 1,000 unit PO HS Patient Comments: Dosing changed per patient 03/09/23 ,pt. reports it is tablets ondansetron HCl 8 mg tablet 8 mg PO Q12H Qty: 3 0RF nicotine 14 mg/24 hr patch 24 hour 1 patch transdermal DIRECTED Patient Comments: APPLY ONE PATCH TO SKIN ONCE APPLY DAY. REMOVE OLD PATCH AND PUT ON NEW PATCH IN ALTERNATING SPOTS/ARMS FOR TWO WEEKS, THEN SWITCH TO 7MCG PATCH. Patch not on today acetaminophen [Tylenol Extra Strength] 500 mg tablet 500 mg PO ONCE Patient Comments: 1000 mg budesonide-formoterol [Symbicort] 160-4.5 mcg/actuation Hfa Aerosol Inhaler 2 puff INHALATION BID Discontinued polyethylene glycol 3350 17 gram/dose powder 238 g PO ONCE Qty: 238 0RF Rx Instructions: take per colonoscopy instructions bisacodyl [Dulcolax (bisacodyl)] 5 mg tablet,delayed release (DR/EC) 5 mg PO ONCE Qty: 8 0RF Rx Instructions: take per colonoscopy instructions neomycin 500 mg tablet 500 mg PO .COMPLEX Qty: 8 0RF Rx Instructions: 500 mg orally Per bowel surgery instructions; metronidazole 500 mg tablet 500 mg PO .COMPLEX Qty: 8 0RF Rx Instructions: 500 mg orally Per bowel surgery instructions; Discharge Instructions Additional Instructions: INSTRUCTIONS: Incisions: Keep clean and dry but they do not need to be covered. It is okay to shower but no tub bathing for 1 week. Activity: As tolerated. No heavy lifting for 6 weeks. Diet: Regular diet as tolerated. Medications: Resume any/all of your usual/regular home medications. Follow-up: If you are having any issues or concerns call the surgery office immediately. Otherwise call and schedule an appointment to be seen in 2-3 weeks. Pain control: Take Tylenol, 1000 mg, every 6 hours on a schedule for the next 3 days. You can use ibuprofen in addition to Tylenol if needed. Ice can be used as needed. No narcotics. Smoking: Don't smoke for the next 4 weeks if at all possible since this affects wound healing. . Stand Alone Forms: Nursing Discharge Form Referrals: Teresa Rolon PA [[facility]] - 12/10/24 1:45 pm (December 10 at 1:45 PM) Activity:: Activity as Tolerated Equipment/Supplies:: No Equipment Needed Diet:: Normal Diet Discharge Orders Discharge Orders: Discharge Order (Routine); Ordered 11/27/24 Ordered By: Jori Cherry DS: Summary Time Spent with Patient providing and/or coordinating discharge services: Less than 30 minutes Status at Discharge Functional status at discharge: independent ambulation Overall status at discharge: patient is progressing back to baseline Mental Status: mental status grossly normal Speech and Movement: speech and movement normal Mood: congruent mood Affect: normal affect Quality:SDOH Health Related Social Needs: Health related social needs transportation insecurity (Z59.82), feeling lonely/isolated (Z60.8) Exam Psych Mental Status: mental status grossly normal Speech and Movement: speech and movement normal Mood: congruent mood Affect: normal affect DS: Data Vitals/I&O Vitals and I&O: Vital Signs Temperature 98.4 F 11/26/24 20:26 Temperature Source Temporal Artery Scan 11/26/24 20:26 Pulse 91 H 11/26/24 20:26 Pulse Rhythm Regular 11/25/24 07:47 Pulse 74 11/25/24 13:21 Respiratory Rate 20 11/26/24 20:26 Respiratory Depth Normal 11/25/24 07:47 Blood Pressure 141/96 H 11/26/24 20:26 Blood Pressure Mean 111 11/26/24 20:26 Pulse Oximetry 96 11/26/24 20:26 Respiratory End-tidal CO2 24 11/25/24 13:11 Oxygen Delivery Method Nasal Cannula 11/26/24 22:15 Oxygen Flow Rate 2 11/26/24 22:15 Pain Level 3 11/27/24 05:48 Comment pt states she is in 10/10 pain, pt also states she is having a hard time breathing. charge nurse and rn notidfied 11/25/24 20:22 Intake & Output 11/26/24 11/26/24 11/27/24 11:59 23:59 11:59 Intake Total 1228 / 1728 500 / 1728 550 / 550 Output Total 600 / 1000 400 / 1000 1000 / 1000 Balance 628 / 728 100 / 728 -450 / -450 Intake: IV 978 / 978 Oral 250 / 750 500 / 750 550 / 550 Output: Urine 600 / 1000 400 / 1000 1000 / 1000 Other: Urine Color Straw Yellow Urine Appearance Clear Clear Urine Odor Normal Data Completed and Pending Labs on day of discharge: Labs from last 24 hours 11/26/24 11/26/24 08:10 06:35 Sodium Cancelled 139 Potassium Cancelled 3.5 Chloride Cancelled 107 Carbon Dioxide Cancelled 25.7 Anion Gap Cancelled 6.3 BUN Cancelled 7 Creatinine Cancelled 0.9 Est GFR (CKD-EPI 2020) Cancelled 81.86 Glucose Cancelled 102 Calcium Cancelled 8.8 PFSH All Active Problems S/P right hemicolectomy (Acute) Cecal bascule (Acute) Intestinal malrotation (Acute) Malrotation cecum (Acute) Volvulus (Acute) Asthma (Chronic) COVID-19 (Acute) Mucocele of maxillary sinus (Acute) Chronic rhinitis (Acute) Tobacco smoker within last 12 months (Acute) Benign essential HTN (Acute) Lumbar radiculopathy (Acute) Plantar fasciitis, bilateral (Acute) Anticipatory grieving (Acute) Sinusitis, chronic (Acute) Jaw pain (Acute) Headache, unspecified (Acute) Tendinitis of long head of biceps brachii of left shoulder (Acute ~07/2019) History of asthma (Acute) Hx of endometriosis (Acute) Kidney stones (Acute) BMI 29.0-29.9,adult (Acute) Anxiety (Acute) Depression (Acute) Patellofemoral syndrome (Acute) Medical History Requires supplemental oxygen per pt. states when she sleeps her O2 drops to the 80's and has to wear 2L O2 at night Hypoxemia per pt. states when she sleeps her o2 drops to the 80's and has to wear 2L O2 at night Lipoma of extremity Bursitis of left shoulder Biceps tendonitis on left Raynauds syndrome PTSD (post-traumatic stress disorder) Per pt. states no issues currently History of depression Light tobacco smoker Fatigue Pain in left shoulder Dysmenorrhea (03/24/15) Dyspareunia (02/23/15) Menorrhagia (02/23/15) 7-10d menses Surgical History (Updated 11/26/24 @ 10:43 by Anthony Tucker MD) Hx laparoscopic cholecystectomy S/P laparoscopic appendectomy (~02/19/24) S/P excision of lipoma left shoulder S/P QUINTEN-BSO Curettage of endometrium (03/17/15) Dr. Rosenda Mathews Pathologic Diagnosis -Proliferative endometrium with extensive stomal breakdown -Benign fragments of squamous mucosa -No cytologic atypia Family History Mother Asthma Depression Social History Smoking/Tobacco Use Status: Current every day Tobacco Type: cigarettes Smoking risk assessment performed?: Yes Alcohol Intake: current Alcohol Intake frequency: holidays/special occasions only Drug use: Never Substance use type: does not use Details: alcohol: t-7, one drink Housing: house Current gender identity: female Do you feel safe at home: Yes Do you feel safe in your relationship?: Yes Additional Social history: [facility] Time Spent with Patient Time Spent with Patient: <45 minutes Time was spent: referring, communicating with other health patient care assistant
[2024-11-27] MEDS: Tiotropium Bromide-Respimat 10 PUFF INH 2 PUFF IH (07:44)
[2024-11-27] MEDS: Budesonide/Formoterol 160/4.5 6 GM 60 PUFF INH IH (07:44)
--- NOTE | 2024-11-27 08:44 | PGE_ITS ---
Date of Service Date of service: 11/27/24 Time of Service: 08:44 Assessment and Plan Assessment and plan (1) S/P right hemicolectomy: Status: Acute Assessment and plan: Milagros is making an excellent recovery after right hemicolectomy. I will discharge her home today with outpatient follow-up with Dr. Tucker. Subjective Subjective Interval history since last seen: Milagros looks great today. She is already up and sitting in the chair. She has been walking around this morning. She tolerated a diet, and has been passing some gas, and small stools. There is no blood in her stools. Exam GI Other: Abdomen is soft and nondistended. Bandages are all clean. She is not tender. Objective Last Vital Signs Temp 98.4 F 11/26/24 20:26 Pulse 91 H 11/26/24 20:26 Resp 20 11/26/24 20:26 BP 141/96 H 11/26/24 20:26 Pulse Ox 96 11/26/24 20:26 Time Spent with Patient Time Spent with Patient: 25-34 minutes Time was spent: preparing to see the patient(eg.review tests), referring, communicating with other health workforce investment act career manager, indepentently interpreting results and counseling the patient
--- NOTE | 2024-11-27 08:45 | W.PM.DS.N ---
Date of service: 11/27/24 Time of Service: 08:46 DS: Diagnosis Discharge Diagnosis (1) S/P right hemicolectomy: Status: Acute Asessment and Plan: Outpatient postoperative follow-up Discharge Plan Disposition Patient Disposition: Home Condition: Improving Discharge Details Reason For Visit: Free-Floating Cecum,Intra-Abdominal Adhesions Admit Date/Time: 11/25/24 07:17 Admit Provider: Anthony Tucker Attending Provider: Anthony Tucker Primary Care Provider: Rosanna Godinez V Hospital Course Hospital Course: 44-year-old woman presented for an elective right hemicolectomy because of having a completely unattached right colon, prior cecum volvulus and also concern for possible intestinal malrotation. 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 She did well and on postoperative day 1 was tolerating a diet. Because of pain control she wanted to stay an extra day and on hospital day 2 was set up for discharge home. Home Meds and New Rx's Prescriptions: New tramadol 50 mg tablet 50 mg PO Q8H PRNQty: 9 0RF Rx Instructions: Take 1 tablet by mouth up to every 8 hours if needed for severe pain Continued montelukast 10 mg tablet 10 mg PO QPM albuterol sulfate [ProAir HFA] 90 mcg/actuation HFA aerosol inhaler 2 puff inhalation .Q4-6H PRN fluticasone propionate [Flonase Allergy Relief] 50 mcg/actuation spray,suspension 2 spray intranasal DAILY Qty: 16 12RF Rx Instructions: administer into each nostril folic acid 1 mg tablet 1 mg PO DAILY Spiriva Respimat 2.5 mcg/actuation mist 2 puff inhalation DAILY nystatin 100,000 unit/mL suspension 500,000 unit buccal QID Qty: 480 0RF Rx Instructions: administer 1/2 of dose in each side of the mouth, hold in mouth as long as possible, then spit cholecalciferol (vitamin D3) 1,000 unit/drop drops 1,000 unit PO HS Patient Comments: Dosing changed per patient 03/09/23 ,pt. reports it is tablets ondansetron HCl 8 mg tablet 8 mg PO Q12H Qty: 3 0RF nicotine 14 mg/24 hr patch 24 hour 1 patch transdermal DIRECTED Patient Comments: APPLY ONE PATCH TO SKIN ONCE APPLY DAY. REMOVE OLD PATCH AND PUT ON NEW PATCH IN ALTERNATING SPOTS/ARMS FOR TWO WEEKS, THEN SWITCH TO 7MCG PATCH. Patch not on today acetaminophen [Tylenol Extra Strength] 500 mg tablet 500 mg PO ONCE Patient Comments: 1000 mg budesonide-formoterol [Symbicort] 160-4.5 mcg/actuation Hfa Aerosol Inhaler 2 puff INHALATION BID Discontinued polyethylene glycol 3350 17 gram/dose powder 238 g PO ONCE Qty: 238 0RF Rx Instructions: take per colonoscopy instructions bisacodyl [Dulcolax (bisacodyl)] 5 mg tablet,delayed release (DR/EC) 5 mg PO ONCE Qty: 8 0RF Rx Instructions: take per colonoscopy instructions neomycin 500 mg tablet 500 mg PO .COMPLEX Qty: 8 0RF Rx Instructions: 500 mg orally Per bowel surgery instructions; metronidazole 500 mg tablet 500 mg PO .COMPLEX Qty: 8 0RF Rx Instructions: 500 mg orally Per bowel surgery instructions; Discharge Instructions Additional Instructions: INSTRUCTIONS: Incisions: Keep clean and dry but they do not need to be covered. It is okay to shower but no tub bathing for 1 week. Activity: As tolerated. No heavy lifting for 6 weeks. Diet: Regular diet as tolerated. Medications: Resume any/all of your usual/regular home medications. Follow-up: If you are having any issues or concerns call the surgery office immediately. Otherwise call and schedule an appointment to be seen in 2-3 weeks. Pain control: Take Tylenol, 1000 mg, every 6 hours on a schedule for the next 3 days. You can use ibuprofen in addition to Tylenol if needed. Ice can be used as needed. No narcotics. Smoking: Don't smoke for the next 4 weeks if at all possible since this affects wound healing. . Referrals: Teresa Rolon PA [[employer]] - (December 10 at 1:45 PM) Activity:: Activity as Tolerated Equipment/Supplies:: No Equipment Needed Diet:: Normal Diet DS: Summary Time Spent with Patient providing and/or coordinating discharge services: Less than 30 minutes Status at Discharge Functional status at discharge: independent ambulation Overall status at discharge: patient is progressing back to baseline Mental Status: mental status grossly normal Speech and Movement: speech and movement normal Mood: congruent mood Affect: normal affect Quality:SDOH Health Related Social Needs: Health related social needs transportation insecurity (Z59.82), feeling lonely/isolated (Z60.8) Exam Psych Mental Status: mental status grossly normal Speech and Movement: speech and movement normal Mood: congruent mood Affect: normal affect DS: Data Vitals/I&O Vitals and I&O: Vital Signs Temperature 98.4 F 11/26/24 20:26 Temperature Source Temporal Artery Scan 11/26/24 20:26 Pulse 91 H 11/26/24 20:26 Pulse Rhythm Regular 11/25/24 07:47 Pulse 74 11/25/24 13:21 Respiratory Rate 20 11/26/24 20:26 Respiratory Depth Normal 11/25/24 07:47 Blood Pressure 141/96 H 11/26/24 20:26 Blood Pressure Mean 111 11/26/24 20:26 Pulse Oximetry 96 11/26/24 20:26 Respiratory End-tidal CO2 24 11/25/24 13:11 Oxygen Delivery Method Nasal Cannula 11/26/24 22:15 Oxygen Flow Rate 2 11/26/24 22:15 Pain Level 3 11/27/24 05:48 Comment pt states she is in 10/10 pain, pt also states she is having a hard time breathing. charge nurse and rn notidfied 11/25/24 20:22 Intake & Output 11/26/24 11/26/24 11/27/24 11:59 23:59 11:59 Intake Total 1228 / 1728 500 / 1728 550 / 550 Output Total 600 / 1000 400 / 1000 1000 / 1000 Balance 628 / 728 100 / 728 -450 / -450 Intake: IV 978 / 978 Oral 250 / 750 500 / 750 550 / 550 Output: Urine 600 / 1000 400 / 1000 1000 / 1000 Other: Urine Color Straw Yellow Urine Appearance Clear Clear Urine Odor Normal PFSH All Active Problems S/P right hemicolectomy (Acute) Cecal bascule (Acute) Intestinal malrotation (Acute) Malrotation cecum (Acute) Volvulus (Acute) Asthma (Chronic) COVID-19 (Acute) Mucocele of maxillary sinus (Acute) Chronic rhinitis (Acute) Tobacco smoker within last 12 months (Acute) Benign essential HTN (Acute) Lumbar radiculopathy (Acute) Plantar fasciitis, bilateral (Acute) Anticipatory grieving (Acute) Sinusitis, chronic (Acute) Jaw pain (Acute) Headache, unspecified (Acute) Tendinitis of long head of biceps brachii of left shoulder (Acute ~07/2019) History of asthma (Acute) Hx of endometriosis (Acute) Kidney stones (Acute) BMI 29.0-29.9,adult (Acute) Anxiety (Acute) Depression (Acute) Patellofemoral syndrome (Acute) Medical History Requires supplemental oxygen per pt. states when she sleeps her O2 drops to the 80's and has to wear 2L O2 at night Hypoxemia per pt. states when she sleeps her o2 drops to the 80's and has to wear 2L O2 at night Lipoma of extremity Bursitis of left shoulder Biceps tendonitis on left Raynauds syndrome PTSD (post-traumatic stress disorder) Per pt. states no issues currently History of depression Light tobacco smoker Fatigue Pain in left shoulder Dysmenorrhea (03/24/15) Dyspareunia (02/23/15) Menorrhagia (02/23/15) 7-10d menses Surgical History (Updated 11/26/24 @ 10:43 by nAthony Tucker MD) Hx laparoscopic cholecystectomy S/P laparoscopic appendectomy (~02/19/24) S/P excision of lipoma left shoulder S/P QUINTEN-BSO Curettage of endometrium (03/17/15) Dr. Rosenda Mathews Pathologic Diagnosis -Proliferative endometrium with extensive stomal breakdown -Benign fragments of squamous mucosa -No cytologic atypia Family History Mother Asthma Depression Social History Smoking/Tobacco Use Status: Current every day Tobacco Type: cigarettes Smoking risk assessment performed?: Yes Alcohol Intake: current Alcohol Intake frequency: holidays/special occasions only Drug use: Never Substance use type: does not use Details: alcohol: t-7, one drink Housing: house Current gender identity: female Do you feel safe at home: Yes Do you feel safe in your relationship?: Yes Additional Social history: [employer] Time Spent with Patient Time Spent with Patient: <45 minutes Time was spent: preparing to see the patient(eg.review tests), indepentently interpreting results, counseling the patient and care coordination
--- NOTE | 2024-11-27 09:06 | PDOC.CMDIS ---
Date of service: 11/27/24 Time of Service: 09:06 LACE Index Scoring Tool Questions: Length of Stay (in days): 2 Was the patient admitted via the E.D.?: No E.D. Visits: 2 Answers: Total Score: 4 Risk of Readmission: Low Risk Care Management Discharge Plan Reason for Hospitalization: Free-Floating Cecum, Intra-abdominal Adhesions Discharge Plan: Milagros will be discharged home with no new services. She will not require a return to work letter, at this time. Milagros will f/u with her PCP, surgical team and continue per her plan of care. She will be transported home via private vehicle, by her . Patient/Family Education Needs: Review of discharge instructions, activity, limitations and plan of care. Discuss Ask Me Three. SDOH Health Related Social Needs: Health related social needs transportation insecurity (Z59.82), feeling lonely/isolated (Z60.8)
[2024-11-27] MEDS: Fluticasone NASAL SPRAY 16 GM BTL NS (09:10)
[2024-11-27 09:24] VITALS: BP 130/95; PULSE 88; RESP 16; TEMP 36.8; O2SAT 97
--- NOTE | 2024-11-27 16:48 | RESPIRATORY ---
11/27/2024 Pt states she wears 2L at night at home from [facility]. Patient states she does not have sleep apnea; she says she had a sleep study and they diagnosed her with nocturnal hypoxemia.
== END 2024-11-27 09:49 | disposition home or self-care (01) | DRG 330 ==
LOC: PDS 07:17 → MS 13:30
PROVIDERS: Admitting Provider Student in an Organized Health Care Education/Training Program; PCP Family Medicine; Responsible Provider Student in an Organized Health Care Education/Training Program; Visit Provider Student in an Organized Health Care Education/Training Program
PROC: 0DTF4ZG Resection of Right Large Intestine, Percutaneous Endoscopic Approach, Hand-Assisted (ICD-10-PCS; CPT 44204; principal; 2024-11-25 08:00)
DX: K56.2 Volvulus (principal); Q43.3 Congenital malformations of intestinal fixation; K66.0 Peritoneal adhesions (postprocedural) (postinfection); G89.18 Other acute postprocedural pain; R10.9 Unspecified abdominal pain; J45.909 Unspecified asthma, uncomplicated; I10 Essential (primary) hypertension; M54.16 Radiculopathy, lumbar region; M72.2 Plantar fascial fibromatosis; J32.9 Chronic sinusitis, unspecified; F41.9 Anxiety disorder, unspecified; F32.A Depression, unspecified; I73.00 Raynaud's syndrome without gangrene; F17.210 Nicotine dependence, cigarettes, uncomplicated
CPT/HCPCS: 44204; 44055; 36415; 64488; 80048; 94640; 88307; 94664; J0131; J0665; J0666; J0690; J1100; J1171; J1644; J1805; J1836; J2003; J2250; J2270; J2371; J2405; J2704; J3010

== ENCOUNTER 2025-03-12 15:00 | Outpatient (CLI) | payer OTHER, SELFPAY ==
--- NOTE | 2025-03-12 07:30 | DI.RAD_ITS ---
Exam(s) XR LUMBAR SPINE COMPLETE EXAM: XR LUMBAR SPINE COMPLETE CLINICAL HISTORY: eval pathology,LUMBAR PAIN,M54.50. TECHNIQUE: 2D digital imaging was performed of the lumbar spine. Five images were obtained. AP, lateral, right oblique, left oblique and L5-S1 spot views were obtained. COMPARISON: CR XR ABDOMEN FLAT PLATE from 09/29/2024 FINDINGS: BONES: No fracture or destructive lesion. Small endplate osteophytes are seen at L1-L2 and L4-L5. No facet hypertrophy identified. DISKS: There is mild disc space narrowing at L1-L2. ALIGNMENT: Lumbar spinal alignment is within normal limits. No spondylolysis or spondylolisthesis. SOFT TISSUE: There are surgical clips in the right upper quadrant likely reflecting prior cholecystectomy. IMPRESSION: Mild degenerative changes of the lumbar spine. DATA REPOSITORY: RADIATION DOSE DELIVERED:
== END 2025-03-12 15:20 ==
LOC: DI 15:00
PROVIDERS: PCP Family Medicine; Visit Provider Nurse Practitioner Family
DX: M54.50 Low back pain, unspecified (principal)
CPT/HCPCS: 72110